=== PATIENT | male | born 1960 | race Caucasian/White ===

== ENCOUNTER → 2018-10-03 | Outpatient (CLI) | payer BC ==
--- NOTE | 2018-10-03 11:02 | XR ---
EXAMINATION TYPE: XR chest 2V DATE OF EXAM: 10/03/2018 COMPARISON: 06/10/2015 HISTORY: Shortness of breath TECHNIQUE: Frontal and lateral views of the chest are obtained. FINDINGS: Scattered senescent parenchymal changes noted. Hyperinflation compatible with COPD. No evidence for infiltrate. No evidence for atelectasis. Heart size is stable. Mediastinal structures are stable and grossly unremarkable. No evidence for hilar prominence. Degenerative changes dorsal spine. IMPRESSION: 1. No evidence for acute pulmonary disease.
== END | disposition home or self-care (01) ==
LOC: RADXRMAIN 10:27
PROVIDERS: ATTEND Internal Medicine Geriatric Medicine
DX: J45.909 Unspecified asthma, uncomplicated (principal)
CPT/HCPCS: 71046

== ENCOUNTER 2019-04-21 08:19 | Day surgery (SDC) | payer BC ==
[2019-04-16 10:17] VITALS: BMI 30.2
[~2019-04-21 08:19] MED LIST: LACTATED RINGERS 1,000 ML IV SCH
[2019-04-21 08:41] VITALS: TEMP 97.8
[2019-04-21] MEDS ORDERED: LIDOCAINE 1% 20 ML VIAL (10MG/ML) FOR IV START INTRADERMA ONE (08:42)
[2019-04-21] MEDS ORDERED: PROPOFOL 10 MG/ML 20 ML VIAL IV ONE (08:53)
--- NOTE | 2019-04-21 08:59 | P.GSHP ---
History of Present Illness H&P Date: 04/21/19 Chief Complaint: Deficiency anemia, screening Patient here today for upper and lower endoscopy. Patient has been complaining of fatigue and headaches. He has been found recently to have a low iron. Associated with anemia as well reportedly. No abdominal pain. No reflux or dysphagia. Last colonoscopy normal per patient. No family history of colon cancer. Past Medical History Past Medical History: GERD/Reflux, Hypertension Additional Past Medical History / Comment(s): headaches, borderline anemic, "low iron", "low WBC's", past acid refux, History of Any Multi-Drug Resistant Organisms: None Reported Past Surgical History: Hernia Repair, Orthopedic Surgery Additional Past Surgical History / Comment(s): beau knee arthroscopy, beau knee surgery as teen, Past Anesthesia/Blood Transfusion Reactions: No Reported Reaction Smoking Status: Current some day smoker - Past Family History Father Family Medical History: Cancer Medications and Allergies Home Medications Medication Instructions Recorded Confirmed Type ALPRAZolam [Xanax] 0.5 mg PO PC-SUPPER PRN 04/16/19 04/21/19 History Aspirin(Dose Unknown) 1 tab PO DIRECTED PRN 04/16/19 04/21/19 History Gemfibrozil [Lopid] 600 mg PO PC-SUPPER 04/16/19 04/21/19 History Lisinopril 30 mg PO PC-SUPPER 04/16/19 04/21/19 History Allergies Allergy/AdvReac Type Severity Reaction Status Date / Time No Known Allergies Allergy Verified 04/21/19 08:37 Surgical - Exam Vital Signs Temp Pulse Resp BP Pulse Ox 97.8 F 75 16 152/92 96 04/21/19 08:40 04/21/19 08:40 04/21/19 08:40 04/21/19 08:40 04/21/19 08:40 Physical exam: General: Well-developed, well-nourished HEENT: Normocephalic, sclerae nonicteric Abdomen: Nontender, nondistended Extremities: No edema Neuro: Alert and oriented Assessment and Plan (1) Iron deficiency anemia Narrative/Plan: Will proceed with upper and lower endoscopy at this time. Current Visit: Yes Status: Acute Code(s): D50.9 - IRON DEFICIENCY ANEMIA, UNSPECIFIED SNOMED Code(s): 02607817
[2019-04-21 09:39] VITALS: RESP 18
--- NOTE | 2019-04-21 09:39 | P.PCN ---
Date of Procedure: 04/21/19 Procedure(s) Performed: PREOPERATIVE DIAGNOSIS: Iron deficiency anemia, screening POSTOPERATIVE DIAGNOSIS: Gastric nodule, gastritis, diverticulosis, transverse colon polyp 2, rectal polyp PROCEDURE: 1. EGD with biopsy 2. Colonoscopy with snare polypectomies ANESTHESIA: MAC SURGEON: Elgin Rico M.D. SPECIMENS: Antrum, gastric nodule, transverse colon polyps, rectal polyp ENDOSCOPIC PROCEDURE: The patient was on the endoscopy table in the left decubitus position. The Olympus gastroscope was inserted into the oropharynx and passed under direct visualization to the region of the third portion of the duodenum. From that point the scope was slowly withdrawn inspecting all surfaces carefully. There were no neoplastic inflammatory or polypoid lesions throughout the duodenum. The pylorus was widely patent. The stomach was carefully inspected. There was noted to be a small slightly inflamed nodule in the prepyloric region. Mild gastritis was present. Biopsies took place. A biopsy of the antrum took place to rule out H. pylori. Retroflexion revealed a normal hiatus. The esophagus was then carefully examined. There were no neoplastic inflammatory or polypoid lesions throughout the visualized esophagus. The patient was kept on the endoscopy table in the left decubitus position. The Olympus colonoscope was inserted into the anus and passed under direct visualization to the base of the cecum. The appendiceal orifice was visualized. From that point the scope was slowly withdrawn inspecting all surfaces carefully. There were no neoplastic inflammatory or polypoid lesions throughout the cecum and ascending colon. In the transverse colon 2 small polyps removed using the snare with cautery technique. The remainder of the transverse descending sigmoid colon appeared normal. In the rectum a small polyp was also seen and removed in a similar fashion. There was mild sigmoid diverticulosis with some luminal narrowing and edema consistent with likely prior episodes of diverticulitis. Digital rectal examination was normal. The patient was taken to the recovery room in stable condition per anesthesia guidelines. RECOMMENDATIONS: Await biopsy results. Continue anemia workup.
[2019-04-21 10:22] VITALS: BP 121/43; PULSE 74
--- NOTE | 2019-04-23 11:11 | CDI ---
Outpatient Documentation Clarification Form Date: 04/23/19 [employer] Reseller Name: Ashley Silva Phone: If any questions, call Caitlin Villareal [employer] Sales Consultant at [phone] Patient Name: Hank Moon Admit Date: 04/21/19 Discharge Date: 04/21/19 ATTENTION: The [facility] Coding Staff appreciate your assistance in clarifying documentation. Please respond to the clarification below the line at the bottom and electronically sign. The [facility] Coding staff will review the response and follow-up if needed. Please note: Queries are made part of the Legal Health Record. If you have any questions, please contact the [employer] Sales Consultant. Dear Dr. Rico, Please provide clarification as to the pre-operative diagnoses on the procedures performed. They are listed as iron deficient anemia and screening. In order to code according to the official guidelines, a screening is testing for disease or disease precursors in seemingly well individuals in the absence of signs or symptoms. The iron deficient anemia would be considered a sign or symptom. Since iron deficient anemia can prompt both an EGD and colonoscopy to be performed, please clarify if the pre-operative diagnosis of iron deficient anemia is the reason for one or both of the procedures. Thank you for your kind consideration. If iron deficiency anemia is adequate preoperative diagnosis for colonoscopy which it wasn't in the past then please use that. _ MTDD
== END 2019-04-21 10:23 | disposition home or self-care (01) ==
LOC: ORWHC2ENDO 08:19
PROVIDERS: ATTEND Surgery
DX: D50.9 Iron deficiency anemia, unspecified (principal); K29.50 Unspecified chronic gastritis without bleeding; D12.3 Benign neoplasm of transverse colon; K62.1 Rectal polyp; K57.30 Diverticulosis of large intestine without perforation or abscess without bleeding; K21.9 Gastro-esophageal reflux disease without esophagitis; I10 Essential (primary) hypertension; F17.290 Nicotine dependence, other tobacco product, uncomplicated; R51 Headache; Z79.899 Other long term (current) drug therapy
CPT/HCPCS: 88305; 45385; 43239; J2704

== ENCOUNTER → 2020-12-18 | Outpatient (CLI) | payer BC ==
--- NOTE | 2020-12-18 15:14 | XR ---
EXAMINATION TYPE: XR KUB DATE OF EXAM: 12/18/2020 12:43 PM CLINICAL HISTORY: Bilateral flank pain, hematuria TECHNIQUE: Supine images of the abdomen and pelvis were obtained COMPARISON: 10/19/2009. FINDINGS: Nonspecific bowel gas pattern. There is no visceromegaly or pneumoperitoneum. There is a 4 mm calcified lesion over the lower pole of the right kidney. The osseous structures are intact. IMPRESSION: 4 mm calcification over the right renal lower pole shadow which may represent nephrolithiasis.
== END | disposition home or self-care (01) ==
LOC: RADXRMAIN 10:48
PROVIDERS: ATTEND Nurse Practitioner Gerontology
DX: N28.89 Other specified disorders of kidney and ureter (principal)
CPT/HCPCS: 74018

== ENCOUNTER → 2021-01-18 | Outpatient (CLI) | payer BC ==
--- NOTE | 2021-01-18 16:43 | US ---
EXAMINATION TYPE: US kidneys/renal and bladder DATE OF EXAM: 01/18/2021 COMPARISON: NONE CLINICAL HISTORY: N20.0 Renal Calculus. EXAM MEASUREMENTS: Right Kidney: 12.7 x 5.1 x 5.3cm Left Kidney: 12.6 x 5.7 x 5.4cm Right Kidney: echogenic foci measuring 0.5 x 0.4 x 0.2cm, measures large Left Kidney: measures large Bladder: not fully distended ureteral jets are not visualized. Spleen: measures large Right lower pole renal calculus measuring 5 mm is nonobstructive. No hydronephrosis. No left renal ca lculi. The spleen is enlarged suggestive of splenomegaly at 15.4 cm in length. IMPRESSION: 1. Splenomegaly. The spleen measures up to 15 .4 cm in length. Clinical and laboratory correlation is recommended. 2. 5 mm right renal lower pole calculus. This is nonobstructive. No hydronephrosis. 3. No hydronephrosis or shadowing renal calculi are seen of the left kidney. 4. The kidneys are mildly enlarged bilaterally. Clinical correlation is recommended. A common cause i s diabetic nephropathy. Differential diagnosis includes other nephropathies. 5. The urinary bladder is not fully distended. Ureteral jets are not visualized.
== END | disposition home or self-care (01) ==
LOC: RADUSWWP 10:15
PROVIDERS: ATTEND Internal Medicine Geriatric Medicine
DX: N20.0 Calculus of kidney (principal); R16.1 Splenomegaly, not elsewhere classified; E11.21 Type 2 diabetes mellitus with diabetic nephropathy
CPT/HCPCS: 76770

== ENCOUNTER → 2022-03-12 | Outpatient (CLI) | payer BC ==
--- NOTE | 2022-03-12 12:49 | XR ---
EXAMINATION TYPE: XR chest 2V DATE OF EXAM: 03/12/2022 COMPARISON: Chest x-ray 10/03/2018 HISTORY: Abnormal weight loss TECHNIQUE: Frontal and lateral views of the chest are obtained. FINDINGS: There is no focal air space opacity, pleural effusion, or pneumothorax seen. The cardiac silhouette size is within normal limits. The osseous structures are intact, there is thoracic spond ylosis, stable appearance, mild anterior wedge compression deformity in the midthoracic spine is unch anged. There are coronary artery calcifications. Old left midclavicular fracture with healing is unch anged IMPRESSION: No acute cardiopulmonary process.
== END | disposition home or self-care (01) ==
LOC: RADXRMAIN 12:20
PROVIDERS: ATTEND Internal Medicine Geriatric Medicine
DX: R63.4 Abnormal weight loss (principal)
CPT/HCPCS: 71046

== ENCOUNTER → 2022-06-21 | Outpatient (CLI) | payer BC ==
--- NOTE | 2022-06-21 09:04 | XR ---
EXAM TYPE: LUMBAR SPINE X RAY SERIES COMPARISON: NONE HISTORY: Pain TECHNIQUE: 3 views are submitted. FINDINGS: Alignment is anatomic. The pedicles are intact. The transverse processes are intact. There is renetta re degenerative disc disease L5-S1. There is facet arthropathy L4-5 and L5-S1. Chronic appearing defo rmity of the inferior endplate of L2. There is a 4.5 mm calcification right upper quadrant likely wit hin IMPRESSION: 1. Severe degenerative disc disease L5-S1 with facet arthropathy. Suspect bilateral foraminal encroac hment. 2. Correlate for right renal calculus.
== END | disposition home or self-care (01) ==
LOC: RADXRMAIN 08:44
PROVIDERS: ATTEND Internal Medicine Geriatric Medicine
DX: M51.37 Other intervertebral disc degeneration, lumbosacral region (principal); M47.817 Spondylosis without myelopathy or radiculopathy, lumbosacral region
CPT/HCPCS: 72100

== ENCOUNTER → 2022-06-29 | Outpatient (CLI) | payer BC ==
--- NOTE | 2022-06-30 10:46 | MR ---
EXAMINATION TYPE: MR lumbar spine wo con DATE OF EXAM: 06/29/2022 10:11 AM COMPARISON: NONE HISTORY: M48.00 SPINAL STENOSIS, SITE UNSPECIFIED Multiplanar, MultiSpin echo imaging of the lumbar spine was performed. L1-L2: Normal disc appearance without desiccation. No herniation, protrusion or disc bulging. No ca nal stenosis is present. Foramina are patent bilaterally. L2-L3: Normal disc appearance without desiccation. No herniation, protrusion or disc bulging. No ca nal stenosis is present. Foramina are patent bilaterally. L3-L4: Normal disc appearance without desiccation. No herniation, protrusion or disc bulging. No ca nal stenosis is present. Foramina are patent bilaterally. L4-L5: Moderate decreased signal and loss of height compatible degenerative disc disease. Posterior d isc bulge with hypertrophy of the ligamentum flavum and facet joint arthropathy resulting in moderate to severe central stenosis. Bilateral neural foraminal encroachment seen. L5-S1: Moderate disc desiccation. Posterior disc bulge with annular tear greatest posteriorly central ly and to the left. There is left lateral recess stenosis and left foraminal encroachment. Facet join t arthropathy. No evidence for central stenosis. Ventral spondylosis. Lumbar segments are intact. No paraspinal masses are identified. Conus medullaris has a normal appe arance. IMPRESSION: 1. Moderate to severe central stenosis at L4-5. 2. At L4-5 there is a disc bulge with annular tear and left lateral recess stenosis.
== END | disposition home or self-care (01) ==
LOC: RADMRIMAIN 09:24
PROVIDERS: ATTEND Internal Medicine Geriatric Medicine
DX: M48.061 Spinal stenosis, lumbar region without neurogenic claudication (principal); M51.36 Other intervertebral disc degeneration, lumbar region
CPT/HCPCS: 72148

== ENCOUNTER 2022-11-12 19:28 | Inpatient (IN) | payer BC, MEDICAID ==
[2022-11-12] MEDS ORDERED: METOCLOPRAMIDE 5 MG/ML 2 ML VIAL IVP STA (19:56)
[2022-11-12] MEDS ORDERED: SODIUM CHLORIDE 0.9% 2,000 ML IV STA (19:56)
[2022-11-12] MEDS ORDERED: FAMOTIDINE 20 MG/2 ML VIAL IV STA (19:57)
--- NOTE | 2022-11-12 20:04 | ED ---
Nausea/Vomiting/Diarrhea HPI - General Chief complaint: Nausea/Vomiting/Diarrhea Stated complaint: Vomiting Time Seen by Provider: 11/12/22 19:52 Source: patient, family, RN notes reviewed Mode of arrival: ambulatory Limitations: no limitations - History of Present Illness Initial comments: This is a 62-year-old male who presents to the emergency department for nausea and vomiting. His states that this started at 7:30 AM. He initially tried taking Zofran, however he drank water 5 minutes later, and then proceeded to throw up. Since then, the Zofran has not been effective. When this first started, he was having centralized abdominal pain. However, that has since resolved and he is now only experiencing the nausea and vomiting. Denies any changes in bowel or urinary habits. Patient is notably shaking in the examination room. His states that this started yesterday. She is unsure if this is related to dehydration or another issue altogether. He was at the dentist yesterday, but otherwise denies any sick contacts or eating any new or different foods. Patient does say that he feels "off" and he cannot explain it. He has never felt like this before. With regards to the back pain mentioned in the triage notes, patient states that he has chronic lower back pain and is scheduled to have a lumbar fusion next month. Denies any chest pain or shortness of breath. Denies any fevers, chills, sore throat, cough, dyspnea, chest pain, palpitations, diarrhea, or headaches. MD complaint: nausea, vomiting Associated Abdominal Pain: No - Related Data Home Medications Medication Instructions Recorded Confirmed ALPRAZolam [Xanax] 0.5 mg PO PC-SUPPER PRN 04/16/19 04/21/19 Aspirin(Dose Unknown) 1 tab PO DIRECTED PRN 04/16/19 04/21/19 gemfibroziL [Lopid] 600 mg PO PC-SUPPER 04/16/19 04/21/19 lisinopriL 30 mg PO PC-SUPPER 04/16/19 04/21/19 Previous Rx's Medication Instructions Recorded Metoclopramide [Reglan] 10 mg PO Q6H PRN #20 tab 11/12/22 Allergies Allergy/AdvReac Type Severity Reaction Status Date / Time No Known Allergies Allergy Verified 11/12/22 19:40 Review of Systems ROS Statement: Those systems with pertinent positive or pertinent negative responses have been documented in the HPI. ROS Other: All systems not noted in ROS Statement are negative. Past Medical History Past Medical History: GERD/Reflux, Hypertension Additional Past Medical History / Comment(s): headaches, borderline anemic, "low iron", "low WBC's", past acid refux, History of Any Multi-Drug Resistant Organisms: None Reported Past Surgical History: Hernia Repair, Orthopedic Surgery Additional Past Surgical History / Comment(s): beau knee arthroscopy, beau knee surgery as teen, Past Anesthesia/Blood Transfusion Reactions: No Reported Reaction Past Psychological History: Anxiety Smoking Status: Current every day smoker Past Alcohol Use History: None Reported Past Drug Use History: None Reported - Past Family History Father Family Medical History: Cancer General Exam Limitations: no limitations General appearance: alert, in no apparent distress, other (Patient does have diffuse whole-body tremors) Head exam: Present: atraumatic, normocephalic, normal inspection Respiratory exam: Present: normal lung sounds bilaterally. Absent: respiratory distress, wheezes, rales, rhonchi, stridor Cardiovascular Exam: Present: regular rate, normal rhythm, normal heart sounds. Absent: systolic murmur, diastolic murmur, rubs, gallop, clicks GI/Abdominal exam: Present: soft, normal bowel sounds. Absent: distended, tenderness, guarding, rebound, rigid Neurological exam: Present: alert, oriented X3, CN II-XII intact Psychiatric exam: Present: normal affect, normal mood Skin exam: Present: warm, dry, intact, normal color. Absent: rash Course Vital Signs 11/12/22 11/12/22 11/12/22 19:37 19:51 20:00 Temperature 98.9 F Pulse Rate 142 H 124 H Respiratory 22 18 20 Rate Blood Pressure 159/105 170/114 170/114 O2 Sat by Pulse 98 99 98 Oximetry 11/12/22 11/12/22 11/12/22 20:15 20:30 20:45 Temperature Pulse Rate 110 H 115 H Respiratory 18 16 Rate Blood Pressure 172/108 186/118 166/114 O2 Sat by Pulse 98 98 Oximetry 11/12/22 11/12/22 11/12/22 21:00 21:15 21:30 Temperature Pulse Rate 121 H 112 H 121 H Respiratory 17 17 19 Rate Blood Pressure 154/117 167/107 164/106 O2 Sat by Pulse 99 98 98 Oximetry 11/12/22 11/12/22 21:45 22:15 Temperature Pulse Rate 121 H 112 H Respiratory 16 Rate Blood Pressure 165/110 157/102 O2 Sat by Pulse 98 96 Oximetry Medical Decision Making - Medical Decision Making This is a 62-year-old male who presents to the emergency department for nausea and vomiting. Was pt. sent in by a medical professional or institution? @ -No Did you speak to anyone other than the patient for history? @ -His and daughter Did you review nursing and triage notes? @ -Yes, and I agree, it is accurate with regards to the patient's symptoms. Were old charts reviewed? @ -No Differential Diagnosis? @ -Differential Nausea and Vomiting: Gastroenteritis, cholecystitis, appendicitis, pancreatitis, migraine, benign positional vertigo, food borne illness, pyelonephritis, irritable bowel syndrome, influenza, Covid, GERD, incarcerated hernia, intestinal obstruction, this is not meant to be an all-inclusive list. EKG interpreted by me (3pts min.)? @ -Sinus tachycardia. Ventricular rate 127 bpm, DE interval 177 ms, QRS duration 99 ms, QTC 388 ms. X-rays interpreted by me (1pt min.)? @ -KUB x-ray obtained. My interpretation of the KUB x-ray reveals no free air or dilation of the bowel loops. What testing was considered but not performed? (CT, X-rays, U/S, labs)? Why? @ -None What meds were considered but not given? Why? @ -None Did you discuss the management of the patient with other professionals? @ -Yes, Slime Pate with [facility] who accepts the patient for admission. Did you reconcile home meds? @ -No Was smoking cessation discussed for >3mins.? @ -No Was critical care preformed (if so, how long)? @ -No Were there social determinants of health that impacted care today? How? (Homelessness, low income, unemployed, alcoholism, drug addiction, tr ansportation, low edu. Level, literacy, decrease access to med. care, senior care, rehab)? @ -No Was there de-escalation of care discussed even if they declined? (Discuss DNR or withdrawal of care, Hospice)? @ -No What co-morbidities impacted this encounter? (DM, HTN, Smoking, COPD, CAD, Cancer, CVA, Hep., AIDS, mental health diagnosis, sleep apnea, morbid obesity)? @ -GERD, HTN Was patient admitted / discharged? @ -Admitted. Lab work obtained revealing minor leukocytosis, likely reactive to the nausea and vomiting. Lab work also consistent with dehydration. Patient given 2 L bolus of IV fluids, Reglan, and Pepcid. Troponin elevated at .060. Patient denies any chest pain or shortness of breath. He does complain of lower back pain, which he states is chronic. The nausea and vomiting resolve with the Reglan and he was able to keep down water without difficulty. However, he did continue to feel generally unwell and "off". Shaking improved following medication administration, but was still present. KUB x-ray obtained revealing no acute findings. Urinalysis does demonstrate a large amount of blood. Patient states that he has a kidney stone that is too large to pass, and he always has blood in his urine. He has followed up with urology regarding this issue, and there are no plans for intervention at this time because he has been asymptomatic. He continued to be tachycardic and hypertensive in the emergency department. 20 mg of labetalol was administered. Patient admitted to medicine for the elevated troponin with cardiology consult. Will also trend troponins. Undiagnosed new problem with uncertain prognosis? @ -None Drug Therapy requiring intensive monitoring for toxicity (Heparin, Nitro, Insulin, Cardizem)? @ -None Were any procedures done? @ -None Diagnosis/symptom? @ -N/V, elevated troponin Acute, or Chronic, or Acute on Chronic? @ -Acute Uncomplicated (without systemic symptoms) or Complicated (systemic symptoms)? @ -Complicated Side effects of treatment? @ -None Exacerbation, Progression, or Severe Exacerbation] @ -Not applicable Poses a threat to life or bodily function? @ -Yes This case was discussed in detail with the attending ED physician, Dr. Trevino. Presentation, findings, and treatment plan discussed in detail as well. - Lab Data Result diagrams: 11/12/22 19:58 11/12/22 19:58 Lab Results 11/12/22 11/12/22 11/12/22 Range/Units 19:58 19:58 19:58 WBC 13.2 H (3.8-10.6) k/uL RBC 4.61 (4.30-5.90) m/uL Hgb 15.3 (13.0-17.5) gm/dL Hct 43.3 (39.0-53.0) % MCV 94.1 (80.0-100.0) fL MCH 33.2 (25.0-35.0) pg MCHC 35.3 (31.0-37.0) g/dL RDW 11.9 (11.5-15.5) % Plt Count 248 (150-450) k/uL MPV 8.2 Neutrophils % 90 % Lymphocytes % 6 % Monocytes % 4 % Eosinophils % 0 % Basophils % 0 % Neutrophils # 11.8 H (1.3-7.7) k/uL Lymphocytes # 0.8 L (1.0-4.8) k/uL Monocytes # 0.5 (0-1.0) k/uL Eosinophils # 0.0 (0-0.7) k/uL Basophils # 0.0 (0-0.2) k/uL Sodium 130 L (137-145) mmol/L Potassium 5.4 H (3.5-5.1) mmol/L Chloride 101 (98-107) mmol/L Carbon Dioxide 14 L (22-30) mmol/L Anion Gap 15 mmol/L BUN 43 H (9-20) mg/dL Creatinine 1.09 (0.66-1.25) mg/dL Est GFR (CKD-EPI)AfAm 83 (>60 ml/min/1.73 sqM) Est GFR (CKD-EPI)NonAf 71 (>60 ml/min/1.73 sqM) Glucose 157 H (74-99) mg/dL Calcium 9.8 (8.4-10.2) mg/dL Magnesium 2.3 (1.6-2.3) mg/dL Total Bilirubin 0.9 (0.2-1.3) mg/dL AST 36 (17-59) U/L ALT 42 (4-49) U/L Alkaline Phosphatase 110 (38-126) U/L Troponin I (0.000-0.034) ng/mL Total Protein 7.8 (6.3-8.2) g/dL Albumin 4.6 (3.5-5.0) g/dL Amylase 51 (30-110) U/L Lipase 140 (23-300) U/L TSH 1.710 (0.465-4.680) mIU/L Urine Color Urine Appearance (Clear) Urine pH (5.0-8.0) Ur Specific [place] (1.001-1.035) Urine Protein (Negative) Urine Glucose (UA) (Negative) Urine Ketones (Negative) Urine Blood (Negative) Urine Nitrite (Negative) Urine Bilirubin (Negative) Urine Urobilinogen (<2.0) mg/dL Ur Leukocyte Esterase (Negative) Urine RBC (0-5) /hpf Urine WBC (0-5) /hpf Ur Squamous Epith Cells (0-4) /hpf Hyaline Casts (0-2) /lpf Urine Mucus (None) /hpf Influenza Type A (PCR) Not Detected (Not Detectd) Influenza Type B (PCR) Not Detected (Not Detectd) RSV (PCR) Not Detected (Not Detectd) SARS-CoV-2 (PCR) Not Detected (Not Detectd) 11/12/22 11/12/22 Range/Units 19:58 21:00 WBC (3.8-10.6) k/uL RBC (4.30-5.90) m/uL Hgb (13.0-17.5) gm/dL Hct (39.0-53.0) % MCV (80.0-100.0) fL MCH (25.0-35.0) pg MCHC (31.0-37.0) g/dL RDW (11.5-15.5) % Plt Count (150-450) k/uL MPV Neutrophils % % Lymphocytes % % Monocytes % % Eosinophils % % Basophils % % Neutrophils # (1.3-7.7) k/uL Lymphocytes # (1.0-4.8) k/uL Monocytes # (0-1.0) k/uL Eosinophils # (0-0.7) k/uL Basophils # (0-0.2) k/uL Sodium (137-145) mmol/L Potassium (3.5-5.1) mmol/L Chloride (98-107) mmol/L Carbon Dioxide (22-30) mmol/L Anion Gap mmol/L BUN (9-20) mg/dL Creatinine (0.66-1.25) mg/dL Est GFR (CKD-EPI)AfAm (>60 ml/min/1.73 sqM) Est GFR (CKD-EPI)NonAf (>60 ml/min/1.73 sqM) Glucose (74-99) mg/dL Calcium (8.4-10.2) mg/dL Magnesium (1.6-2.3) mg/dL Total Bilirubin (0.2-1.3) mg/dL AST (17-59) U/L ALT (4-49) U/L Alkaline Phosphatase (38-126) U/L Troponin I 0.060 H* (0.000-0.034) ng/mL Total Protein (6.3-8.2) g/dL Albumin (3.5-5.0) g/dL Amylase (30-110) U/L Lipase (23-300) U/L TSH (0.465-4.680) mIU/L Urine Color Yellow Urine Appearance Cloudy (Clear) Urine pH 5.5 (5.0-8.0) Ur Specific [place] 1.019 (1.001-1.035) Urine Protein 1+ H (Negative) Urine Glucose (UA) 1+ H (Negative) Urine Ketones 1+ H (Negative) Urine Blood Large H (Negative) Urine Nitrite Negative (Negative) Urine Bilirubin Negative (Negative) Urine Urobilinogen <2.0 (<2.0) mg/dL Ur Leukocyte Esterase Small H (Negative) Urine RBC 97 H (0-5) /hpf Urine WBC 6 H (0-5) /hpf Ur Squamous Epith Cells 1 (0-4) /hpf Hyaline Casts 151 H (0-2) /lpf Urine Mucus Few H (None) /hpf Influenza Type A (PCR) (Not Detectd) Influenza Type B (PCR) (Not Detectd) RSV (PCR) (Not Detectd) SARS-CoV-2 (PCR) (Not Detectd) - Radiology Data Radiology results: report reviewed, image reviewed Disposition Clinical Impression: Nausea and vomiting, Elevated troponin Disposition: ADMITTED IP TO THIS HOSP
[2022-11-12 20:21] LABS: Basophils % (A) 0 %; Eosinophils % (A) 0 %; HCT 43.3 % (39.0-53.0); HGB 15.3 gm/dL (13.0-17.5); Lymphocytes # (A) 0.8 k/uL (1.0-4.8); Lymphocytes % (A) 6 %; MCH 33.2 pg (25.0-35.0); MCHC 35.3 g/dL (31.0-37.0); MCV 94.1 fL (80.0-100.0); Mean Platelet Volume 8.2; Monocytes # (A) 0.5 k/uL (0-1.0); Monocytes % (A) 4 %; Neutrophils # (A) 11.8 k/uL (1.3-7.7); Neutrophils % (A) 90 %; Platelet Count 248 k/uL (150-450); RBC 4.61 m/uL (4.30-5.90); RDW 11.9 % (11.5-15.5); WBC 13.2 k/uL (3.8-10.6)
--- NOTE | 2022-11-12 20:30 | XR ---
EXAMINATION TYPE: XR KUB DATE OF EXAM: 11/12/2022 COMPARISON: 12/18/2020 HISTORY: Nausea and vomiting TECHNIQUE: 2 views FINDINGS: There is no sign of intestinal obstruction or pneumoperitoneum. Fecal pattern is normal. No sign of a mass. No pathologic calcification over the kidneys. Lung bases are clear. IMPRESSION: Nonacute abdomen. No adverse change.
[2022-11-12 20:48] LABS: ALT 42 U/L (4-49); AST 36 U/L (17-59); African American GFR (CKD) 83 (>60 ml/min/1.73 sqM); Albumin 4.6 g/dL (3.5-5.0); Alkaline Phosphatase 110 U/L (38-126); Amylase 51 U/L (30-110); Anion Gap 15 mmol/L; Blood Urea Nitrogen 43 mg/dL (9-20); Calcium 9.8 mg/dL (8.4-10.2); Carbon Dioxide 14 mmol/L (22-30); Chloride 101 mmol/L (98-107); Glucose 157 mg/dL (74-99); Lipase 140 U/L (23-300); Magnesium 2.3 mg/dL (1.6-2.3); Non-African American GFR(CKD) 71 (>60 ml/min/1.73 sqM); Potassium 5.4 mmol/L (3.5-5.1); Sodium 130 mmol/L (137-145); Total Bilirubin 0.9 mg/dL (0.2-1.3); Total Protein 7.8 g/dL (6.3-8.2)
[2022-11-12 21:32] LABS: Appearance,Urine Cloudy (Clear); Bilirubin,Urine Negative (Negative); Blood,Urine Large (Negative); Color,Urine Yellow; Glucose,Urine (UA) 1+ (Negative); Hyaline Casts,Urine 151 /lpf (0-2); Ketones,Urine 1+ (Negative); Leukocyte Esterase,Urine Small (Negative); Mucus,Urine Few /hpf; Nitrite,Urine Negative (Negative); PH, Urine 5.5 (5.0-8.0); Protein,Urine 1+ (Negative); RBC,Urine 97 /hpf (0-5); Specific Gravity,Urine 1.019 (1.001-1.035); Squamous Epithelial Cell,Urine 1 /hpf (0-4); Urobilinogen,Urine <2.0 mg/dL (<2.0); WBC,Urine 6 /hpf (0-5)
[2022-11-12] MEDS ORDERED: MORPHINE SULFATE 2 MG/ML SYRINGE IVP STA (21:49)
[2022-11-12] MEDS ORDERED: IBUPROFEN 400 MG TAB PO PRN (21:51)
[2022-11-12] MEDS ORDERED: HYDROcodone/APAP 5-325MG 1 EACH TAB PO PRN (21:51)
[2022-11-12] MEDS ORDERED: NALOXONE 0.4 MG/ML 1 ML VIAL IV PRN (21:51)
[2022-11-12] MEDS ORDERED: ACETAMINOPHEN TAB 325 MG TAB PO PRN (21:51)
[2022-11-12] MEDS ORDERED: METOCLOPRAMIDE 5 MG/ML 2 ML VIAL IVP PRN (22:00)
[2022-11-12] MEDS ORDERED: KETOROLAC 15 MG/ML 1 ML VIAL IVP STA (22:08)
[2022-11-12] MEDS ORDERED: LABETALOL 5 MG/ML VIAL MDV IVP STA (22:08)
[2022-11-13] MEDS: SODIUM CHLORIDE 0.9% 1,000 ML IV SCH ×3 (00:15→18:12)
[2022-11-13 03:53] LABS: Basophils % (A) 0 %; Eosinophils % (A) 0 %; HGB 12.9 gm/dL (13.0-17.5); Lymphocytes % (A) 11 %; MCH 33.3 pg (25.0-35.0); MCV 95.1 fL (80.0-100.0); Mean Platelet Volume 8.4; Monocytes # (A) 0.5 k/uL (0-1.0); Monocytes % (A) 6 %; Neutrophils % (A) 81 %; Platelet Count 145 k/uL (150-450); RBC 3.89 m/uL (4.30-5.90); RDW 11.9 % (11.5-15.5); WBC 8.7 k/uL (3.8-10.6)
[2022-11-13 04:12] LABS: Albumin 3.5 g/dL (3.5-5.0); Calcium 8.5 mg/dL (8.4-10.2); Total Bilirubin 0.6 mg/dL (0.2-1.3); Total Protein 6.3 g/dL (6.3-8.2)
[2022-11-13] MEDS ORDERED: HEPARIN SODIUM 1,000 UN/ML (10ML VL) IV ONE ×2 (08:07→13:52)
[2022-11-13] MEDS ORDERED: HEPARIN SODIUM 1,000 UN/ML (10ML VL) IV PRN (08:07)
[2022-11-13] MEDS ORDERED: HEPARIN SOD,PORK IN 0.45% NACL 25,000 UNIT in 0.45% NACL 1 250ML.BAG IV SCH (08:15)
[2022-11-13] MEDS: MORPHINE SULFATE 4 MG/ML SYRINGE IV PRN ×3 (08:23→18:53)
[2022-11-13] MEDS ORDERED: ATORVASTATIN 20 MG TAB PO SCH (09:00)
[2022-11-13] MEDS ORDERED: ASPIRIN 81 MG PO SCH (09:00)
[2022-11-13] MEDS ORDERED: ALPRAZolam 0.25 MG TAB PO PRN (09:07)
[2022-11-13] MEDS ORDERED: ATORVASTATIN 80 MG TAB PO STA (09:07)
[2022-11-13] MEDS ORDERED: NITROGLYCERIN SL TABS 0.4 MG TAB SUBLINGUAL PRN ×2 (09:07→14:26)
[2022-11-13] MEDS ORDERED: ASPIRIN 325 MG TAB PO STA (09:07)
[2022-11-13] MEDS ORDERED: ALPRAZolam 0.5 MG TAB PO PRN ×2 (09:07→11:36)
--- NOTE | 2022-11-13 09:18 | P.CRDCN ---
History of Present Illness Consult date: 11/13/22 Reason for Consult (text): Elevated troponins History of present illness: History of present illness: This is a 62 year old male with past medical history of chronic back pain with multiple pain procedures with plan for surgical intervention with Dr. Weathers, hyperlipidemia, depression and anxiety. 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 We have been asked to see him regarding elevated troponins. Patient states that he has had ongoing problems with acne and on suspects all injections, currently on Tylenol 3 that does not seem to be helping his pain. He has stopped eating and drinking normally and has lost some weight. Yesterday morning first thing when he got up he started having vomiting. No abdominal pain no diarrhea. He did have a normal bowel movement this morning. He has denied having any chest pain or pressure, no upper back discomfort. No shortness of breath. His walking is limited due to back pain but does not describe chest pain when he's doing activity. He states that the morphine helped his back pain last night. Vomiting has now resolved. He presented with a blood pressure 170/114 and heart rate of 142. In the emergency center, he received labetalol IV 2 L of IV fluids, morphine and Toradol. EKG sinus tachycardia at 127 bpm KUB nonacute abdomen. No adverse change. WBC 13.2, hemoglobin 15.3, platelet count 248. Sodium 130, potassium 5.4, BUN 43 creatinine 1.09. Blood sugar is 157. Troponin 0.06, 0.256, 0.3-9. TSH 1.71. Influenza A, influenza B, are SVNs Covid 19 not detected. Urinalysis is bloody. Home cardiac medications: Lopid 600 mg twice daily, lisinopril 30 mg daily Review Of Systems: At the time of my evaluation: Constitutional: No fever, no chills. No weakness, fatigue or lethargy. EENT: No headache. No dizziness. Lungs: No shortness of breath, cough, no sputum production. No wheezing. Cardiovascular: No chest pain, no lower extremity edema. No palpitations. No paroxysmal nocturnal dyspnea. No orthopnea. No lightheadedness or dizziness. No syncopal episodes. Abdominal: No abdominal pain. No nausea, vomiting. No diarrhea. No constipation. Musculoskeletal: No myalgias. No muscle weakness, no frequent falls. Chronic back pain. No neck pain. Integumentary: No wounds. No rash. No unusual bruising. Neurologic: No aphasia. No facial droop. No change in mentation. No head injury. No headache. Physical examination: Gen: This is a 62-year-old male. He is resting in bed and appears to be comfortable and in no acute distress. VS: reviewed HEENT: Head is atraumatic, normocephalic. Pupils equal, round. Sclerae is anicteric. NECK: Supple. No JVD. . LUNGS: Clear to auscultation. No wheezes or rhonchi. No intercostal retractions. HEART: Regular rate and rhythm. No murmur. ABDOMEN: Soft No tenderness. EXTREMITIES: No pedal edema. No calf tenderness. NEUROLOGICAL: Patient is awake, alert and oriented x3. Assessment: Non-ST elevated myocardial infarction Vomiting, possible viral gastritis Chronic back pain Hyperlipidemia Plan: Patient will be started on heparin drip Start metoprolol 50 mg twice daily, atorvastatin 20 mg daily, baby aspirin 81 mg daily, lisinopril 10 mg at noon Obtain 2-D echocardiogram and Doppler study to assess cardiac structure and function Patient will be scheduled for cardiac catheterization today with Dr. Morin this afternoon. Further recommendations to follow based upon clinical course Thank you kindly for this consultation. Nurse practitioner note has been reviewed, I agree with documented findings and plan of care. Patient was seen and examined. Past Medical History Past Medical History: GERD/Reflux, Hypertension Additional Past Medical History / Comment(s): headaches, borderline anemic, "low iron", "low WBC's", past acid refux, History of Any Multi-Drug Resistant Organisms: None Reported Past Surgical History: Hernia Repair, Orthopedic Surgery Additional Past Surgical History / Comment(s): beau knee arthroscopy, beau knee surgery as teen, Past Anesthesia/Blood Transfusion Reactions: No Reported Reaction Past Psychological History: Anxiety Smoking Status: Current every day smoker Past Alcohol Use History: None Reported Past Drug Use History: None Reported - Past Family History Father Family Medical History: Cancer Medications and Allergies Home Medications Medication Instructions Recorded Confirmed Type ALPRAZolam [Xanax] 0.5 mg PO BID PRN 04/16/19 11/12/22 History gemfibroziL [Lopid] 600 mg PO BID 04/16/19 11/12/22 History lisinopriL 30 mg PO DAILY 04/16/19 11/12/22 History Acetaminophen-Codeine 300-30mg 1 tab PO Q8H PRN 11/12/22 11/12/22 History [Tylenol w/codeine #3] Baclofen [Lioresal] 10 mg PO TID 11/12/22 11/12/22 History Escitalopram [Lexapro] 20 mg PO DAILY 11/12/22 11/12/22 History Magnesium (Unknown Strength) 1 dose PO DAILY 11/12/22 11/12/22 History Metoclopramide [Reglan] 10 mg PO Q6H PRN #20 tab 11/12/22 Rx Ondansetron Odt [Zofran Odt] 4 mg PO TID PRN 11/12/22 11/12/22 History Allergies Allergy/AdvReac Type Severity Reaction Status Date / Time No Known Allergies Allergy Verified 11/12/22 22:52 Physical Exam Vitals: Vital Signs Temp Pulse Pulse Resp BP BP Pulse Ox 11/13/22 04:00 98.4 F 96 16 133/89 99 11/12/22 23:26 98.2 F 92 18 153/95 98 11/12/22 22:45 94 17 109/83 96 11/12/22 22:30 170/106 97 11/12/22 22:15 112 H 157/102 96 11/12/22 21:45 121 H 16 165/110 98 11/12/22 21:30 121 H 19 164/106 98 11/12/22 21:15 112 H 17 167/107 98 11/12/22 21:00 121 H 17 154/117 99 11/12/22 20:45 115 H 16 166/114 98 11/12/22 20:30 110 H 18 186/118 98 11/12/22 20:15 172/108 11/12/22 20:00 20 170/114 98 11/12/22 19:51 124 H 18 170/114 99 11/12/22 19:37 98.9 F 142 H 22 159/105 98 Intake and Output 11/12/22 11/13/22 11/13/22 22:59 06:59 14:59 Other: # Voids 1 Weight 81.193 kg 83.5 kg Results 11/13/22 03:29 11/13/22 03:29 Cardiac Enzymes 11/12/22 11/12/22 11/13/22 Range/Units 19:58 19:58 00:50 AST 36 (17-59) U/L Troponin I 0.060 H* 0.256 H* (0.000-0.034) ng/mL 11/13/22 11/13/22 Range/Units 03:29 03:29 AST 26 (17-59) U/L Troponin I 0.329 H* (0.000-0.034) ng/mL CBC 11/12/22 11/13/22 Range/Units 19:58 03:29 WBC 13.2 H 8.7 (3.8-10.6) k/uL RBC 4.61 3.89 L (4.30-5.90) m/uL Hgb 15.3 12.9 L (13.0-17.5) gm/dL Hct 43.3 37.0 L (39.0-53.0) % Plt Count 248 145 L (150-450) k/uL Comprehensive Metabolic Panel 11/12/22 11/13/22 Range/Units 19:58 03:29 Sodium 130 L 130 L (137-145) mmol/L Potassium 5.4 H 5.0 (3.5-5.1) mmol/L Chloride 101 103 (98-107) mmol/L Carbon Dioxide 14 L 21 L (22-30) mmol/L BUN 43 H 40 H (9-20) mg/dL Creatinine 1.09 1.06 (0.66-1.25) mg/dL Glucose 157 H 114 H (74-99) mg/dL Calcium 9.8 8.5 (8.4-10.2) mg/dL AST 36 26 (17-59) U/L ALT 42 32 (4-49) U/L Alkaline Phosphatase 110 83 (38-126) U/L Total Protein 7.8 6.3 (6.3-8.2) g/dL Albumin 4.6 3.5 (3.5-5.0) g/dL Current Medications Generic Name Dose Route Start Last Admin Trade Name Freq PRN Reason Stop Dose Admin Acetaminophen 650 mg 11/12/22 21:51 Acetaminophen Tab 325 Mg Tab PO Q6HR PRN Mild Pain or Fever > 100.5 Hydrocodone Bitart/Acetaminophen 1 each 11/12/22 21:51 Hydrocodone/Apap 5-325mg 1 Each Tab PO Q4HR PRN Moderate Pain (Scale 4 to 6) Sodium Chloride 1,000 mls @ 130 mls/hr 11/12/22 22:00 11/13/22 06:06 Saline 0.9% IV 130 mls/hr .Q7H42M HENRRY Administration Ibuprofen 400 mg 11/12/22 21:51 Ibuprofen 400 Mg Tab PO Q6HR PRN Mild Pain or Fever > 100.5 Metoclopramide HCl 10 mg 11/12/22 22:00 Metoclopramide 5 Mg/Ml 2 Ml Vial IVP Q6H PRN Nausea And Vomiting Morphine Sulfate 4 mg 11/12/22 21:51 Morphine Sulfate 4 Mg/Ml Syringe IV Q4HR PRN Severe Pain (Scale 7 to 10) Naloxone HCl 0.2 mg 11/12/22 21:51 Naloxone 0.4 Mg/Ml 1 Ml Vial IV Q2M PRN Opioid Reversal Ondansetron HCl 4 mg 11/12/22 21:51 Ondansetron 4 Mg/2 Ml Vial IVP Q8HR PRN Nausea And Vomiting Intake and Output 11/12/22 11/13/22 11/13/22 22:59 06:59 14:59 Other: # Voids 1 Weight 81.193 kg 83.5 kg 11/13/22 03:29 11/13/22 03:29
--- NOTE | 2022-11-13 11:35 | P.HPIM ---
History of Present Illness Patient is 62-year-old male came in with complains of nausea vomiting denied any chest pain. Patient does have some back issues but denied any flulike symptoms of body aches or fever chills. Patient has mildly elevated serum creatinine 1.09 with leukocytosis and low sodium of 1:30 and elevated potassium of 5.4. EKG showed sinus tachycardia without acute ST-T wave changes patient had mildly elevated troponin with an upward trend starting at 0.06 and the third one being 0.329, because of which cardiology is according cardiac catheterization patient is a presently on IV heparin. REVIEW OF SYSTEMS: CONSTITUTIONAL: No fever, no malaise, no fatigue. HEENT: No recent visual problems or hearing problems. Denied any sore throat. CARDIOVASCULAR: No chest pain, orthopnea, PND, no palpitations, no syncope. PULMONARY: No shortness of breath, no cough, no hemoptysis. GASTROINTESTINALno abdominal pain. NEUROLOGICAL: No headaches, no weakness, no numbness. HEMATOLOGICAL: Denies any bleeding or petechiae. GENITOURINARY: Denies any burning micturition, frequency, or urgency. MUSCULOSKELETAL/RHEUMATOLOGICAL: Denies any joint pain, swelling, or any muscle pain. ENDOCRINE: Denies any polyuria or polydipsia. The rest of the 14-point review of systems is negative. PHYSICAL EXAMINATION: GENERAL: The patient is alert and oriented x3, not in any acute distress. Well developed, well nourished. HEENT: Pupils are round and equally reacting to light. EOMI. No scleral icterus. No conjunctival pallor. Normocephalic, atraumatic. No pharyngeal erythema. No thyromegaly. CARDIOVASCULAR: S1 and S2 present. No murmurs, rubs, or gallops. PULMONARY: Chest is clear to auscultation, no wheezing or crackles. ABDOMEN: Soft, nontender, nondistended, normoactive bowel sounds. No palpable organomegaly. MUSCULOSKELETAL: No joint swelling or deformity. EXTREMITIES: No cyanosis, clubbing, or pedal edema. NEUROLOGICAL: Gross neurological examination did not reveal any focal deficits. SKIN: No rashes. Assessment and plan -Possibility of type I non-ST elevation myocardial infarction: Patient will be continued on IV heparin patient will undergo cardiac catheterization today -Nausea vomiting can be related to microinfarction or viral gastroenteritis patient was started on proton pump inhibitor and discontinue and states -Chronic low back pain -Hyperlipidemia -Nicotine use: Counseling was provided patient smokes cigars DVT prophylaxis: On IV heparin Past Medical History Past Medical History: GERD/Reflux, Hypertension Additional Past Medical History / Comment(s): headaches, borderline anemic, "low iron", "low WBC's", past acid refux, History of Any Multi-Drug Resistant Organisms: None Reported Past Surgical History: Hernia Repair, Orthopedic Surgery Additional Past Surgical History / Comment(s): beua knee arthroscopy, beau knee surgery as teen, Past Anesthesia/Blood Transfusion Reactions: No Reported Reaction Past Psychological History: Anxiety Smoking Status: Current every day smoker Past Alcohol Use History: None Reported Past Drug Use History: None Reported - Past Family History Father Family Medical History: Cancer Medications and Allergies Home Medications Medication Instructions Recorded Confirmed Type ALPRAZolam [Xanax] 0.5 mg PO BID PRN 04/16/19 11/12/22 History gemfibroziL [Lopid] 600 mg PO BID 04/16/19 11/12/22 History lisinopriL 30 mg PO DAILY 04/16/19 11/12/22 History Acetaminophen-Codeine 300-30mg 1 tab PO Q8H PRN 11/12/22 11/12/22 History [Tylenol w/codeine #3] Baclofen [Lioresal] 10 mg PO TID 11/12/22 11/12/22 History Escitalopram [Lexapro] 20 mg PO DAILY 11/12/22 11/12/22 History Magnesium (Unknown Strength) 1 dose PO DAILY 11/12/22 11/12/22 History Metoclopramide [Reglan] 10 mg PO Q6H PRN #20 tab 11/12/22 Rx Ondansetron Odt [Zofran Odt] 4 mg PO TID PRN 11/12/22 11/12/22 History Allergies Allergy/AdvReac Type Severity Reaction Status Date / Time No Known Allergies Allergy Verified 11/12/22 22:52 Physical Exam Vitals: Vital Signs Temp Pulse Pulse Resp BP BP Pulse Ox 11/13/22 08:00 99.0 F 92 17 124/79 97 11/13/22 04:00 98.4 F 96 16 133/89 99 11/12/22 23:26 98.2 F 92 18 153/95 98 11/12/22 22:45 94 17 109/83 96 11/12/22 22:30 170/106 97 11/12/22 22:15 112 H 157/102 96 11/12/22 21:45 121 H 16 165/110 98 11/12/22 21:30 121 H 19 164/106 98 11/12/22 21:15 112 H 17 167/107 98 11/12/22 21:00 121 H 17 154/117 99 11/12/22 20:45 115 H 16 166/114 98 11/12/22 20:30 110 H 18 186/118 98 11/12/22 20:15 172/108 11/12/22 20:00 20 170/114 98 11/12/22 19:51 124 H 18 170/114 99 11/12/22 19:37 98.9 F 142 H 22 159/105 98 Intake and Output 11/12/22 11/13/22 11/13/22 22:59 06:59 14:59 Intake Total 130 Balance 130 Intake: Intake, IV Titration 130 Amount Sodium Chloride 0.9% 1, 130 000 ml @ 130 mls/hr IV . Q7H42M [facility] Rx#:[id number] Other: # Voids 1 1 Weight 81.193 kg 83.5 kg Results CBC & Chem 7: 11/13/22 03:29 11/13/22 03:29 Labs: Abnormal Lab Results - Last 24 Hours (Table) 11/12/22 11/12/22 11/12/22 Range/Units 19:58 19:58 19:58 WBC 13.2 H (3.8-10.6) k/uL RBC (4.30-5.90) m/uL Hgb (13.0-17.5) gm/dL Hct (39.0-53.0) % Plt Count (150-450) k/uL Neutrophils # 11.8 H (1.3-7.7) k/uL Lymphocytes # 0.8 L (1.0-4.8) k/uL Sodium 130 L (137-145) mmol/L Potassium 5.4 H (3.5-5.1) mmol/L Carbon Dioxide 14 L (22-30) mmol/L BUN 43 H (9-20) mg/dL Glucose 157 H (74-99) mg/dL Troponin I 0.060 H* (0.000-0.034) ng/mL Urine Protein (Negative) Urine Glucose (UA) (Negative) Urine Ketones (Negative) Urine Blood (Negative) Ur Leukocyte Esterase (Negative) Urine RBC (0-5) /hpf Urine WBC (0-5) /hpf Hyaline Casts (0-2) /lpf Urine Mucus (None) /hpf 11/12/22 11/13/22 11/13/22 Range/Units 21:00 00:50 03:29 WBC (3.8-10.6) k/uL RBC (4.30-5.90) m/uL Hgb (13.0-17.5) gm/dL Hct (39.0-53.0) % Plt Count (150-450) k/uL Neutrophils # (1.3-7.7) k/uL Lymphocytes # (1.0-4.8) k/uL Sodium (137-145) mmol/L Potassium (3.5-5.1) mmol/L Carbon Dioxide (22-30) mmol/L BUN (9-20) mg/dL Glucose (74-99) mg/dL Troponin I 0.256 H* 0.329 H* (0.000-0.034) ng/mL Urine Protein 1+ H (Negative) Urine Glucose (UA) 1+ H (Negative) Urine Ketones 1+ H (Negative) Urine Blood Large H (Negative) Ur Leukocyte Esterase Small H (Negative) Urine RBC 97 H (0-5) /hpf Urine WBC 6 H (0-5) /hpf Hyaline Casts 151 H (0-2) /lpf Urine Mucus Few H (None) /hpf 11/13/22 11/13/22 Range/Units 03:29 03:29 WBC (3.8-10.6) k/uL RBC 3.89 L (4.30-5.90) m/uL Hgb 12.9 L (13.0-17.5) gm/dL Hct 37.0 L (39.0-53.0) % Plt Count 145 L (150-450) k/uL Neutrophils # (1.3-7.7) k/uL Lymphocytes # (1.0-4.8) k/uL Sodium 130 L (137-145) mmol/L Potassium (3.5-5.1) mmol/L Carbon Dioxide 21 L (22-30) mmol/L BUN 40 H (9-20) mg/dL Glucose 114 H (74-99) mg/dL Troponin I (0.000-0.034) ng/mL Urine Protein (Negative) Urine Glucose (UA) (Negative) Urine Ketones (Negative) Urine Blood (Negative) Ur Leukocyte Esterase (Negative) Urine RBC (0-5) /hpf Urine WBC (0-5) /hpf Hyaline Casts (0-2) /lpf Urine Mucus (None) /hpf Thrombosis Risk Factor Assmnt - Choose All That Apply Any of the Below Risk Factors Present?: No Other Risk Factors: Yes Each Risk Factor Represents 2 Points: Age 61-74 years Other congenital or acquired thrombophilia - If yes, enter type in comment: No Thrombosis Risk Factor Assessment Total Risk Factor Score: 2 Thrombosis Risk Factor Assessment Level: Low Risk
[2022-11-13] MEDS ORDERED: Acetaminophen-Codeine 300-30mg TAB PO PRN (11:36)
[2022-11-13] MEDS ORDERED: ONDANSETRON ODT 4 MG TAB PO PRN (11:36)
[2022-11-13] MEDS ORDERED: BACLOFEN 10 MG TAB PO PRN (11:36)
--- NOTE | 2022-11-13 12:25 | CA ---
Transthoracic Echo Report Name: Hank Moon Age: 62 Gender: M : 1960 Exam Date: 11/13/2022 07:48 Exam Location: [place] [facility] Ht (in): 71 Wt (lb): 184 Ordering Physician: Senait Wilkins Attending/Referring Phys: [id number], Franky Program Management Specialist Zen Giordano RDCS Procedure CPT: Indications: LVF Cardiac Hx: Technical Quality: Fair Contrast 1: Total Dose (mL): Contrast 2: Total Dose (mL): MEASUREMENTS (Male / Female) Normal Values 2D ECHO LV Diastolic Diameter PLAX 4.1 cm 4.2 - 5.9 / 3.9 - 5.3 cm LV Systolic Diameter PLAX 2.6 cm IVS Diastolic Thickness 1.2 cm 0.6 - 1.0 / 0.6 - 0.9 cm LVPW Diastolic Thickness 1.3 cm 0.6 - 1.0 / 0.6 - 0.9 cm LV Relative Wall Thickness 0.6 M-MODE Aortic Root Diameter MM 2.7 cm AV Cusp Separation MM 1.7 cm DOPPLER AV Peak Velocity 162.4 cm/s AV Peak Gradient 10.6 mmHg LVOT Peak Velocity 107.6 cm/s LVOT Peak Gradient 4.6 mmHg MV Area PHT 7.1 cm??? Mitral E Point Velocity 85.8 cm/s Mitral A Point Velocity 117.3 cm/s Mitral E to A Ratio 0.7 MV Deceleration Time 106.4 ms TR Peak Velocity 263.1 cm/s TR Peak Gradient 27.7 mmHg PV Peak Velocity 105.8 cm/s PV Peak Gradient 4.5 mmHg FINDINGS Left Ventricle Mildly increased septal wall thickness. Left ventricular cavity size normal. Grade 1 diastolic dysfunction. Left ventricular ejection fraction is estimated at 55-60%. Right Ventricle Normal right ventricular size. Normal right ventricular global systolic function. Right ventricular systolic pressure within normal limits. Right Atrium Normal right atrial size. Left Atrium Normal left atrial size. Mitral Valve Structurally normal mitral valve. Trace to mild mitral regurgitation. Aortic Valve Trileaflet aortic valve. No aortic regurgitation. No aortic stenosis. Tricuspid Valve Structurally normal tricuspid valve. No tricuspid regurgitation. Pulmonic Valve Structurally normal pulmonic valve. Pericardium Normal pericardium. No pericardial or pleural effusion. Aorta Normal size aortic root and proximal ascending aorta. CONCLUSIONS Left ventricular ejection fraction 55-60% Trace to mild mitral regurgitation No tricuspid regurgitation No pericardial effusion Previewed by: Dr. Gil Moy DO (Electronically Signed) Final Date: 13 November 2022 12:24
[2022-11-13] MEDS ORDERED: VERAPAMIL 2.5 MG/ML 2 ML AMP ONE (13:39)
[2022-11-13] MEDS ORDERED: fentaNYL (PF) 50 MCG/ML 2 ML AMP ONE (13:45)
[2022-11-13] MEDS ORDERED: SODIUM CHLORIDE 0.9% 500 ML 500 ML IV ONE (13:47)
[2022-11-13] MEDS ORDERED: fentaNYL (PF) 50 MCG/ML 2 ML AMP IV ONE (13:48)
[2022-11-13] MEDS ORDERED: LIDOCAINE 1% INJ 10MG/ML (5 ML VIAL-PF) SQ ONE (13:48)
[2022-11-13] MEDS ORDERED: VERAPAMIL SYRINGE (5 MG/10 ML) INTRAARTER ONE (13:49)
[2022-11-13] MEDS ORDERED: MIDAZOLAM 2 MG/2 ML VIAL IV ONE (13:54)
[2022-11-13] MEDS ORDERED: PRASUGREL 10 MG TAB ONE (14:01)
[2022-11-13] MEDS ORDERED: PRASUGREL 10 MG TAB PO ONE (14:04)
[2022-11-13] MEDS ORDERED: IOPAMIDOL-370 125ML BTL INJ ONE (14:13)
[2022-11-13] MEDS ORDERED: IOPAMIDOL-370 100ML BTL INJ ONE (14:18)
[2022-11-13] MEDS ORDERED: RX INFO: IV CONTRAST WAS GIVEN 1 EACH MISC MISCELLANE PRN (14:26)
[2022-11-13] MEDS ORDERED: ATROPINE SULFATE 0.1 MG/ML 10ML SYRINGE IV PRN (14:26)
[2022-11-13] MEDS ORDERED: MAG HYDROX/AL HYDROX/SIMETH 30 ML CUP PO PRN (14:26)
[2022-11-13] MEDS ORDERED: ZOLPIDEM 5 MG TAB PO PRN (14:26)
[2022-11-13] MEDS ORDERED: SODIUM CHLORIDE 0.9% 1,000 ML in EMPTY BAG 1 BAG IV SCH (14:30)
--- NOTE | 2022-11-13 14:36 | P.CARDCATH ---
Date of Procedure: 11/13/22 Description of Procedure: Cardiac Catheterization: The patient is a 62-year-old male with a known history of smoking and hypertension as well as hyperlipidemia who presented with nausea and vomiting and troponin elevation consistent with non-STEMI. He had no acute ST segment changes. Recommendations were made regarding cardiac catheterization, the risks and the complications were discussed with the patient who is in full understanding and agreement. 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 Using Xylocaine Anesthesia and Seldinger technique, a 6-[place] Lucian sheath was introduced in the right radial artery . Subsequently, selective coronary angiography was performed using a 5-[place] Lucian 3.5 bend Kylee catheter. Multiple views of the coronary artery including hemiaxial views were obtained. The 5-[place] Lucian pigtail catheter was used to cross the aortic valve and LVEDP was calculated. PCI: After removing the catheter a 6-[place] Lucian 0.75 AL guiding catheter was introduced and after cannulating the right coronary ostium a 0.014 BMW J-wire was positioned distally subsequently a 4.0 x 18 mm Xience master point stent was deployed at 16 guerrero after removing the catheter an IVUS [place] was introduced and images were obtained, after removing the catheter a 4.0 x 15 mm NC Treck balloon was advanced and one inflation at 12 guerrero was done, after removing the balloon and the wire images were obtained and revealed successful stenting. Following that, catheter and sheath were removed. Hemostasis was obtained with deployment of TR band . There was no immediate complication. Patient was returned to room in stable condition. Of note, the patient received a total of 6000 units of intravenous heparin as well as intra-arterial verapamil. He received an oral loading dose of Effient, his ACT was followed. He had no significant chest discomfort or EKG changes. Findings: Fluoroscopy: Calcification of the LAD was noted. Left main: This is a large sized vessel, bifurcating into LAD and left circumflex, left main has no high-grade stenosis LAD: This is a large size vessel, reaching to the apex, giving rise to a large diagonal branch, the LAD has mild disease in the midsegment of 20% with no high- grade stenosis, there is mild plaque proximally. Left circumflex: This is a nondominant vessel, giving rise to a large obtuse marginal branch that has 2 branching segment. The proximal segment of the obtuse marginal branch has a 30-40% plaque. The inferior branch at the takeoff has a 70-80% stenosis the rest of the vessel has no high-grade stenosis RCA: This is a large dominant vessel, bifurcating into PDA and PLV, the midsegment has diffuse 30% plaque then in the distal segment of the mid RCA there is a hazy area with stenosis up to 70%. The rest of the vessel has no high-grade stenosis. Left Ventriculogram: Not performed Hemodynamics: There was no gradient across the aortic valve , LVEDP was 12-16 mmHg Conclusion: 1. Significant stenosis in the mid RCA, appears to be an acute plaque rupture 2. Significant disease in the obtuse marginal branch 3. Mild disease in the LAD 4. Successful stenting of the mid RCA with reduction of stenosis from 70% to 0% with intravascular ultrasound imaging Recommendations: The patient will continue on aspirin and Effient for 1 year without any interruption, he will continue aggressive coronary risk modification was close follow-up of his left circumflex obtuse marginal branch lesion to see if intervention is needed.. The findings and the recommendations were discussed with the patient and the family and they were in full understanding and agreement. Duration of sedation is 34 minutes.
[2022-11-13] MEDS: lisinopriL 10 MG TAB PO SCH (15:05)
[2022-11-13] MEDS: METOPROLOL TARTRATE 50 MG TAB PO SCH (15:05)
[2022-11-13] MEDS: ONDANSETRON 4 MG/2 ML VIAL IVP PRN (18:11)
[2022-11-13] MEDS: FAMOTIDINE 20 MG/2 ML VIAL IV SCH (20:20)
[2022-11-13] MEDS ORDERED: FENOFIBRATE 160 MG TAB PO SCH (21:00)
[2022-11-14] MEDS: METOPROLOL TARTRATE 50 MG TAB PO SCH ×2 (00:26→08:45)
[2022-11-14 04:04] VITALS: TEMP 98.4
[2022-11-14] MEDS: ONDANSETRON 4 MG/2 ML VIAL IVP PRN (04:07)
[2022-11-14 06:56] LABS: HCT 37.2 % (39.0-53.0); HGB 12.9 gm/dL (13.0-17.5); MCH 33.3 pg (25.0-35.0); MCHC 34.8 g/dL (31.0-37.0); MCV 95.7 fL (80.0-100.0); Mean Platelet Volume 8.7; Platelet Count 121 k/uL (150-450); RBC 3.88 m/uL (4.30-5.90); RDW 12.5 % (11.5-15.5); WBC 8.8 k/uL (3.8-10.6)
[2022-11-14] MEDS ORDERED: HEPARIN SODIUM,PORCINE 10,000 UNIT in SODIUM CHLORIDE 0.9% 1,000 ML IRRIGATION PRN (07:00)
[2022-11-14] MEDS ORDERED: HEPARIN SODIUM,PORCINE 2,500 UNIT in SODIUM CHLORIDE 0.9% 250 ML IRRIGATION PRN (07:00)
[2022-11-14 07:24] LABS: Sodium 131 mmol/L (137-145)
[2022-11-14 07:25] LABS: African American GFR (CKD) >90 (>60 ml/min/1.73 sqM); Anion Gap 8 mmol/L; Blood Urea Nitrogen 30 mg/dL (9-20); Calcium 8.3 mg/dL (8.4-10.2); Carbon Dioxide 20 mmol/L (22-30); Chloride 103 mmol/L (98-107); Glucose 92 mg/dL (74-99); Non-African American GFR(CKD) >90 (>60 ml/min/1.73 sqM); Potassium 4.8 mmol/L (3.5-5.1)
[2022-11-14 08:19] VITALS: RESP 17
[2022-11-14] MEDS: SODIUM CHLORIDE 0.9% 1,000 ML IV SCH (08:41)
[2022-11-14] MEDS: FAMOTIDINE 20 MG/2 ML VIAL IV SCH (08:45)
[2022-11-14] MEDS: MORPHINE SULFATE 4 MG/ML SYRINGE IV PRN (08:47)
[2022-11-14] MEDS ORDERED: ESCITALOPRAM 20 MG TAB PO SCH (09:00)
[2022-11-14] MEDS ORDERED: PRASUGREL 10 MG TAB PO SCH (09:00)
[2022-11-14] MEDS ORDERED: ASPIRIN 81 MG PO SCH (09:00)
[2022-11-14] MEDS ORDERED: ATORVASTATIN 40 MG TAB PO SCH (09:00)
--- NOTE | 2022-11-14 11:44 | P.PN ---
Subjective Progress Note Date: 11/14/22 Elevated troponins History of present illness: History of present illness: This is a 62 year old male with past medical history of chronic back pain with multiple pain procedures with plan for surgical intervention with Dr. Weathers, hyperlipidemia, depression and anxiety. Patient denies having any previous cardiac history and does not follow with a case management director. We have been asked to see him regarding elevated troponins. Patient states that he has had ongoing problems with acne and on suspects all injections, currently on Tylenol 3 that does not seem to be helping his pain. He has stopped eating and drinking normally and has lost some weight. Yesterday morning first thing when he got up he started having vomiting. No abdominal pain no diarrhea. He did have a savage l bowel movement this morning. He has denied having any chest pain or pressure, no upper back discomfort. No shortness of breath. His walking is limited due to back pain but does not describe chest pain when he's doing activity. He states that the morphine helped his back pain last night. Vomiting has now resolved. He presented with a blood pressure 170/114 and heart rate of 142. In the emergency center, he received labetalol IV 2 L of IV fluids, morphine and Toradol. EKG sinus tachycardia at 127 bpm KUB nonacute abdomen. No adverse change. WBC 13.2, hemoglobin 15.3, platelet count 248. Sodium 130, potassium 5.4, BUN 43 creatinine 1.09. Blood sugar is 157. Troponin 0.06, 0.256, 0.3-9. TSH 1.71. Influenza A, influenza B, are SVNs Covid 19 not detected. Urinalysis is bloody. Home cardiac medications: Lopid 600 mg twice daily, lisinopril 30 mg daily 11/14 Today, patient underwent cardiac catheterization with Dr. Morin that found the RCA with an acute plaque rupture, disease in the obtuse marginal and mild disease in the LAD. The RCA was stented with good results. Patient has been started on Effient, aspirin, statin and beta carlos. This morning, patient denies having any chest pain, shortness of breath, lightheadedness or dizziness. Patient did have a little bit of nausea last evening. Patient is anxious to go home today. Echocardiogram reveals EF 55-60%, trace to mild MR Physical examination: Gen: This is a 62-year-old male. He is resting in bed and appears to be comfortable and in no acute distress. VS: reviewed HEENT: Head is atraumatic, normocephalic. Pupils equal, round. Sclerae is anicteric. NECK: Supple. No JVD. . LUNGS: Clear to auscultation. No wheezes or rhonchi. No intercostal retractions. HEART: Regular rate and rhythm. No murmur. ABDOMEN: Soft No tenderness. EXTREMITIES: No pedal edema. No calf tenderness. NEUROLOGICAL: Patient is awake, alert and oriented x3. Assessment: Non-ST elevated myocardial infarction Vomiting, possible viral gastritis Chronic back pain Hyperlipidemia Plan: Continue patient on baby aspirin 81 mg daily, atorvastatin 40 mg daily, Lopressor 50 mg twice daily, Effient 10 mg daily Cigar smoking cessation discussed with the patient. Patient is cleared from cardiology for discharge with follow-up with Dr. Robles in the office in one to 2 weeks. Nurse practitioner note has been reviewed, I agree with documented findings and plan of care. Patient was seen and examined. Objective - Vital Signs Vital signs: Vital Signs Temp 98.4 F 11/14/22 04:04 Pulse 56 L 11/14/22 04:04 Resp 18 11/14/22 04:04 BP 145/88 11/14/22 04:04 Pulse Ox 98 11/14/22 04:04 FiO2 Intake & Output 11/13/22 11/14/22 11/14/22 18:59 06:59 18:59 Intake Total 1080 Balance 1080 Weight 83.5 kg 83 kg Intake: IV 350 Intake, IV Titration 730 Amount Sodium Chloride 0.9% 1, 730 000 ml @ 75 mls/hr IV . [id number] [facility] Rx#:[id number] Other: Voiding Method Toilet # Voids 1 2 - Labs CBC & Chem 7: 11/14/22 05:56 11/14/22 05:56 Labs: Abnormal Lab Results - Last 24 Hours (Table) 11/14/22 11/14/22 Range/Units 05:56 05:56 RBC 3.88 L (4.30-5.90) m/uL Hgb 12.9 L (13.0-17.5) gm/dL Hct 37.2 L (39.0-53.0) % Plt Count 121 L (150-450) k/uL Sodium 131 L (137-145) mmol/L
[2022-11-14 12:03] VITALS: BP 133/80; PULSE 59
[2022-11-14] MEDS: lisinopriL 10 MG TAB PO SCH (13:06)
[2022-11-14 13:09] VITALS: BMI 24.1
--- NOTE | 2022-11-27 13:50 | P.PN ---
Subjective Progress Note Date: 11/14/22 Patient is 62-year-old male came in with complains of nausea vomiting denied any chest pain. Patient does have some back issues but denied any flulike symptoms of body aches or fever chills. Patient has mildly elevated serum creatinine 1.09 with leukocytosis and low sodium of 1:30 and elevated potassium of 5.4. EKG showed sinus tachycardia without acute ST-T wave changes patient had mildly elevated troponin with an upward trend starting at 0.06 and the third one being 0.329, because of which cardiology is according cardiac catheterization patient is a presently on IV heparin. 11/14/2022 Patient is currently lying in the bed. Awake alert and oriented. Underwent cardiac catheterization and found have RCA with acute rupture.disease in the obtuse marginal and mild disease in the LAD. The RCA was stented with good results. Patient was started on dual antiplatelets. Otherwise patient denied any complaints of chest pain or shortness of breath. No headache or dizziness or lightheadedness. No nausea vomiting or diarrhea. Next and 2-D echo cardiac exam today decision fraction 25-60% and trace MR REVIEW OF SYSTEMS: CONSTITUTIONAL: No fever, no malaise, no fatigue. HEENT: No recent visual problems or hearing problems. Denied any sore throat. CARDIOVASCULAR: No chest pain, orthopnea, PND, no palpitations, no syncope. PULMONARY: No shortness of breath, no cough, no hemoptysis. GASTROINTESTINALno abdominal pain. NEUROLOGICAL: No headaches, no weakness, no numbness. HEMATOLOGICAL: Denies any bleeding or petechiae. GENITOURINARY: Denies any burning micturition, frequency, or urgency. MUSCULOSKELETAL/RHEUMATOLOGICAL: Denies any joint pain, swelling, or any muscle pain. ENDOCRINE: Denies any polyuria or polydipsia. The rest of the 14-point review of systems is negative. PHYSICAL EXAMINATION: GENERAL: The patient is alert and oriented x3, not in any acute distress. Well developed, well nourished. HEENT: Pupils are round and equally reacting to light. EOMI. No scleral icterus. No conjunctival pallor. Normocephalic, atraumatic. No pharyngeal erythema. No thyromegaly. CARDIOVASCULAR: S1 and S2 present. No murmurs, rubs, or gallops. PULMONARY: Chest is clear to auscultation, no wheezing or crackles. ABDOMEN: Soft, nontender, nondistended, normoactive bowel sounds. No palpable organomegaly. MUSCULOSKELETAL: No joint swelling or deformity. EXTREMITIES: No cyanosis, clubbing, or pedal edema. NEUROLOGICAL: Gross neurological examination did not reveal any focal deficits. SKIN: No rashes. Assessment and plan -Acute type I non-ST elevation myocardial infarction: Status post cardiac catheterization and stent placement today. -Nausea vomiting can be related to microinfarction or viral gastroenteritis patient was started on proton pump inhibitor and discontinue and states -Chronic low back pain -Hyperlipidemia -Nicotine use: Counseling was provided patient smokes cigars DVT prophylaxis: On IV heparin Objective - Vital Signs Vital signs: Vital Signs Temp 98.4 F 11/14/22 04:04 Pulse 69 11/14/22 08:00 Resp 17 11/14/22 08:00 BP 115/75 11/14/22 08:00 Pulse Ox 99 11/14/22 09:03 FiO2 Intake & Output 11/13/22 11/14/22 11/14/22 18:59 06:59 18:59 Intake Total 1080 555 Balance 1080 555 Weight 83.5 kg 83 kg Intake: IV 350 Intake, IV Titration 730 75 Amount Sodium Chloride 0.9% 1, 730 75 000 ml @ 75 mls/hr IV . [id number] [facility] Rx#:[id number] Oral 480 Other: Voiding Method Toilet Toilet # Voids 1 2 1 - Labs CBC & Chem 7: 11/14/22 05:56 11/14/22 05:56 Labs: Abnormal Lab Results - Last 24 Hours (Table) 11/14/22 11/14/22 Range/Units 05:56 05:56 RBC 3.88 L (4.30-5.90) m/uL Hgb 12.9 L (13.0-17.5) gm/dL Hct 37.2 L (39.0-53.0) % Plt Count 121 L (150-450) k/uL Sodium 131 L (137-145) mmol/L Carbon Dioxide 20 L (22-30) mmol/L BUN 30 H (9-20) mg/dL Calcium 8.3 L (8.4-10.2) mg/dL
--- NOTE | 2022-11-27 13:51 | P.DS ---
Providers Date of admission: 11/12/22 21:51 Expected date of discharge: 11/14/22 Attending physician: Suleiman Roy Consults: 11/12/22 21:51 Consult Physician Urgent Consulting Provider: Gilles Zacarias Consult Reason/Comments: Elevated troponin Do you want consulting provider notified?: Yes, Notify in am 11/13/22 14:26 Consult Physician Routine Consulting Provider: [facility] Consult Reason/Comments: Post Interventional Patient Do you want consulting provider notified?: Already Contacted Primary care physician: Filipe Godinez [facility] Course: Discharge diagnosis -Acute type I non-ST elevation myocardial infarction: Status post cardiac catheterization and stent placement today. -Nausea vomiting can be related to microinfarction or viral gastroenteritis patient was started on proton pump inhibitor and discontinue and states -Chronic low back pain -Hyperlipidemia -Nicotine use: Counseling was provided patient smokes cigars DVT prophylaxis Hospital course Patient is 62-year-old male came in with complains of nausea vomiting denied any chest pain. Patient does have some back issues but denied any flulike symptoms of body aches or fever chills. Patient has mildly elevated serum creatinine 1.09 with leukocytosis and low sodium of 1:30 and elevated potassium of 5.4. EKG showed sinus tachycardia without acute ST-T wave changes patient had mildly elevated troponin with an upward trend starting at 0.06 and the third one being 0.329, because of which cardiology is according cardiac catheterization patient is a presently on IV heparin. 11/14/2022 Patient is currently lying in the bed. Awake alert and oriented. Underwent cardiac catheterization and found have RCA with acute rupture.disease in the obtuse marginal and mild disease in the LAD. The RCA was stented with good results. Patient was started on dual antiplatelets. Otherwise patient denied any complaints of chest pain or shortness of breath. No headache or dizziness or lightheadedness. No nausea vomiting or diarrhea. Next and 2-D echo cardiac exam today decision fraction 25-60% and trace MR PHYSICAL EXAMINATION: Patient is lying in the bed comfortably, no acute distress, awake alert and oriented.. HEENT: Normocephalic. Neck is supple. Pupils reactive. Nostrils clear. Oral cavity is moist. Neck reveals no JVD, carotid bruits, or thyromegaly. CHEST EXAMINATION: Trachea is central. Symmetrical expansion. Lung veliz clear to auscultation and percussion. CARDIAC: Normal S1, S2 with no gallops. No murmurs ABDOMEN: Soft. Bowel sounds normal. No organomegaly. No abdominal bruits. Extremities: reveal no edema. No clubbing or cyanosis Neurologically awake, alert, oriented x3 with well-coordinated movements. No focal deficits noted Skin: No rash or skin lesions. Psychiatric: Coperative. Nonsuicidal Musculoskeletal: No joint swelling or deformity. Normal range of motion. Vital signs: Vital Signs Temp 98.4 F 11/14/22 04:04 Pulse 69 11/14/22 08:00 Resp 17 11/14/22 08:00 BP 115/75 11/14/22 08:00 Pulse Ox 99 11/14/22 09:03 FiO2 Intake & Output 11/13/22 11/14/22 11/14/22 18:59 06:59 18:59 Intake Total 1080 555 Balance 1080 555 Weight 83.5 kg 83 kg Intake: IV 350 Intake, IV Titration 730 75 Amount Sodium Chloride 0.9% 1, 730 75 000 ml @ 75 mls/hr IV . [id number] [facility] Rx#:[id number] Oral 480 Other: Voiding Method Toilet Toilet # Voids 1 2 1 Patient Condition at Discharge: Stable Plan - Discharge Summary Discharge Rx Participant: No New Discharge Prescriptions: New Metoclopramide [Reglan] 10 mg PO Q6H PRN #20 tab PRN Reason: Nausea And Vomiting Aspirin 81 mg PO DAILY tab Prasugrel [Effient] 10 mg PO DAILY #90 tab Atorvastatin [Lipitor] 40 mg PO DAILY #90 tab Metoprolol Tartrate [Lopressor] 50 mg PO BID #180 tab lisinopriL [Zestril] 10 mg PO 1200 #90 tab Continue ALPRAZolam [Xanax] 0.5 mg PO BID PRN PRN Reason: Anxiety Ondansetron Odt [Zofran ODT] 4 mg PO TID PRN PRN Reason: Nausea Acetaminophen-Codeine 300-30mg [Tylenol w/codeine #3] 1 tab PO Q8H PRN PRN Reason: Pain Escitalopram [Lexapro] 20 mg PO DAILY Baclofen [Lioresal] 10 mg PO TID Magnesium (Unknown Strength) 1 dose PO DAILY Discontinued gemfibroziL [Lopid] 600 mg PO BID lisinopriL 30 mg PO DAILY Discharge Medication List ALPRAZolam [Xanax] 0.5 mg PO BID PRN 04/16/19 [History] Acetaminophen-Codeine 300-30mg [Tylenol w/codeine #3] 1 tab PO Q8H PRN 11/12/22 [History] Baclofen [Lioresal] 10 mg PO TID 11/12/22 [History] Escitalopram [Lexapro] 20 mg PO DAILY 11/12/22 [History] Magnesium (Unknown Strength) 1 dose PO DAILY 11/12/22 [History] Metoclopramide [Reglan] 10 mg PO Q6H PRN #20 tab 11/12/22 [Rx] Ondansetron Odt [Zofran ODT] 4 mg PO TID PRN 11/12/22 [History] Aspirin 81 mg PO DAILY tab 11/14/22 [Rx] Atorvastatin [Lipitor] 40 mg PO DAILY #90 tab 11/14/22 [Rx] Metoprolol Tartrate [Lopressor] 50 mg PO BID #180 tab 11/14/22 [Rx] Prasugrel [Effient] 10 mg PO DAILY #90 tab 11/14/22 [Rx] lisinopriL [Zestril] 10 mg PO 1200 #90 tab 11/14/22 [Rx] Follow up Appointment(s)/Referral(s): Pola Robles MD [STAFF PHYSICIAN] - 1 Week (office will call you with appt. time) Filipe Godinez MD [Primary Care Provider] - 1-2 days (November 18 10:30) Patient Instructions/Handouts: *Surgery [facility] - After Heart Catheterization - Box Sealing Inspector Instructions, Chest Pain (DC) Discharge Disposition: HOME SELF-CARE
== END 2022-11-14 13:31 | disposition home or self-care (01) | DRG 247 ==
LOC: EC 19:28 → 3SCARD 21:51 → OBSVTOIN 21:51 → 3SCARD 22:39
PROVIDERS: ADMIT Hospitalist; ATTEND Hospitalist
PROC: 4A023N7 Measurement of Cardiac Sampling and Pressure, Left Heart, Percutaneous Approach (ICD-10-PCS; principal; 2022-11-13 09:25)
PROC: 027034Z Dilation of Coronary Artery, One Artery with Drug-eluting Intraluminal Device, Percutaneous Approach (ICD-10-PCS; 2022-11-13 09:25)
PROC: B2111ZZ Fluoroscopy of Multiple Coronary Arteries using Low Osmolar Contrast (ICD-10-PCS; 2022-11-13 09:25)
PROC: B240ZZ3 Ultrasonography of Single Coronary Artery, Intravascular (ICD-10-PCS; 2022-11-13 09:25)
DX: I21.4 Non-ST elevation (NSTEMI) myocardial infarction (principal); I10 Essential (primary) hypertension; F32.A Depression, unspecified; R63.4 Abnormal weight loss; A08.4 Viral intestinal infection, unspecified; E78.5 Hyperlipidemia, unspecified; R00.0 Tachycardia, unspecified; E86.0 Dehydration; G89.29 Other chronic pain; F41.9 Anxiety disorder, unspecified; F17.290 Nicotine dependence, other tobacco product, uncomplicated; I25.10 Atherosclerotic heart disease of native coronary artery without angina pectoris; I25.84 Coronary atherosclerosis due to calcified coronary lesion; N20.0 Calculus of kidney; Z20.822 Contact with and (suspected) exposure to COVID-19; Z28.311 Partially vaccinated for COVID-19; Z79.899 Other long term (current) drug therapy; Z68.24 Body mass index [BMI] 24.0-24.9, adult; Z71.6 Tobacco abuse counseling
CPT/HCPCS: 36415; 74018; 80048; 80053; 81001; 82150; 83690; 83735; 84443; 84484; 85025; 85027; 87636; 92978; 93005; 93306; 93458; 94760; 96361; 96374; 96375; 99285

== ENCOUNTER → 2022-11-26 | Outpatient (CLI) | payer MEDICAID ==
[2022-11-26 15:44] LABS: Basophils # (A) 0.02 X 10*3/uL (0.00-0.10); Basophils % (A) 0.2 %; Eosinophils # (A) 0.02 X 10*3/uL (0.04-0.35); Eosinophils % (A) 0.2 %; HCT 41.6 % (39.6-50.0); HGB 14.1 g/dL (13.0-17.0); Immature Grans, Automated 0.6 %; Lymphocytes # (A) 2.49 X 10*3/uL (0.90-5.00); Lymphocytes % (A) 24.3 %; MCH 32.9 pg (27.0-32.0); MCHC 33.9 g/dL (32.0-37.0); Mean Platelet Volume 10.6 fL (9.5-12.2); Monocytes # (A) 0.74 X 10*3/uL (0.20-1.00); Monocytes % (A) 7.2 %; NRBC Per 100 WBC 0 /100 WBCS (0.0-0.0); Neutrophils # (A) 6.92 X 10*3/uL (1.80-7.70); Neutrophils % (A) 67.5 %; Platelet Count 251 X 10*3/uL (140-440); RBC 4.29 X 10*6/uL (4.40-5.60); WBC 10.25 X 10*3/uL (4.50-10.00)
[2022-11-26 17:28] LABS: Magnesium 2.1 mg/dL (1.5-2.4)
[2022-11-26 17:37] LABS: African American GFR (CKD) 104.2 (60.0-200.0); Albumin 3.9 g/dL (3.8-4.9); Albumin/Globulin Ratio 1.39 (1.60-3.17); Anion Gap 13.1 mmol/L (10.00-18.00); BUN/Creat Ratio 28.67 Ratio (12.00-20.00); Blood Urea Nitrogen 25.8 mg/dL (9.0-27.0); Calcium 9.1 mg/dL (8.7-10.3); Carbon Dioxide 21.9 mmol/L (20.0-27.5); Globulin 2.8 g/dL (1.6-3.3); Non-African American GFR(CKD) 89.9 (60.0-200.0); Potassium 4.2 mmol/L (3.5-5.5); Total Bilirubin 0.6 mg/dL (0.30-1.20); Total Protein 6.7 g/dL (6.2-8.2)
== END | disposition home or self-care (01) ==
LOC: LABWHC1 09:58
PROVIDERS: ATTEND Internal Medicine
DX: D64.9 Anemia, unspecified (principal); E86.0 Dehydration
CPT/HCPCS: 36415; 80053; 83735; 85025

== ENCOUNTER → 2022-12-10 | Outpatient (CLI) | payer MEDICAID ==
--- NOTE | 2022-12-10 08:14 | US ---
EXAMINATION TYPE: US abdomen complete DATE OF EXAM: 12/10/2022 COMPARISON: NONE CLINICAL INDICATION: Male, 62 years old with history of R11.2 NAUSEA WITH VOMITING; N/V for 1 day ziyad t ended with an IN TECHNIQUE: Multiple sonographic images of the abdomen are obtained. FINDINGS: EXAM MEASUREMENTS: Liver Length: 17.4 cm Gallbladder Wall: 0.3 cm CBD: 0.7 cm Spleen: 13.2 cm Right Kidney: 10.8 x 5.5 x 5.4 cm Left Kidney: 10.8 x 4.7 x 6.1 cm Pancreas: wnl Liver: wnl Gallbladder: wnl Evidence for sonographic Hyatt's sign: no CBD: wnl Spleen: wnl Right Kidney: wnl Left Kidney: wnl Upper IVC: wnl Abd Aorta: wnl The liver is homogenous. The intrahepatic portion of the IVC and proximal abdominal aorta are within normal limits. There is no evidence of cholelithiasis. Common bile duct is unremarkable. The visu alized portions of the pancreas are homogenous. The spleen is unremarkable. Kidneys are symmetric a nd free of hydronephrosis. No renal lesions are seen. IMPRESSION: No distinct abnormality seen.
== END | disposition home or self-care (01) ==
LOC: RADUSWWP 07:32
PROVIDERS: ATTEND Internal Medicine
DX: R11.2 Nausea with vomiting, unspecified (principal)
CPT/HCPCS: 76700

== ENCOUNTER 2023-01-14 18:24 | Observation (INO) | payer MEDICAID ==
--- NOTE | 2023-01-14 18:34 | ED ---
General Adult HPI - General Source: RN notes reviewed <Tejal Dsouza - Last Filed: 01/14/23 18:34> - General Source: patient, RN notes reviewed Mode of arrival: ambulatory Limitations: no limitations - History of Present Illness MD Complaint: Chest pain <Damaris Stubbs - Last Filed: 01/14/23 23:33> - General Chief complaint: Chest Pain Stated complaint: chest pain Time Seen by Provider: 01/14/23 18:34 - History of Present Illness Initial comments: 62-year-old male with a past medical history significant for [place] presents to the emergency department. Patient reports sharp chest worse with mo vement. (Tejal Dsouza) When I went to evaluate the patient, he states that the chest pain started earlier this evening. Describes it as both sharp and dull/aching in the left side of his chest. Also has nausea/vomiting and feels weak and shaky. Patient did have an NSTEMI 2 months ago, and presented in a very similar way in terms of the nausea/vomiting, weakness, and shaking, however he did not have any chest pain at that time. He saw his internet sales manager earlier today, however he was not experiencing chest pain then. Reports minor shortness of breath. His r eports that the patient has not had much of an appetite over the last couple of months resulting in a large weight loss. Patient believes that some aspect of this is due to his chronic back pain. He was supposed to have back surgery which was delayed due to the NSTEMI. Denies any fevers, chills, sore throat, cough, palpitations, abdominal pain, diarrhea, or headaches. (Damaris Stubbs) - Related Data Home Medications Medication Instructions Recorded Confirmed ALPRAZolam [Xanax] 0.5 mg PO BID PRN 04/16/19 01/14/23 Baclofen [Lioresal] 10 mg PO TID 11/12/22 01/14/23 Escitalopram [Lexapro] 20 mg PO DAILY 11/12/22 01/14/23 HYDROcodone/APAP 7.5-325MG [[place] 1 tab PO Q6HR PRN 01/14/23 01/14/23 7.5-325] Pantoprazole Sodium [Protonix] 40 mg PO AC-BID 01/14/23 01/14/23 lisinopriL [Zestril] 5 mg PO BID 01/14/23 01/14/23 Previous Rx's Medication Instructions Recorded Metoclopramide [Reglan] 10 mg PO Q6H PRN #20 tab 11/12/22 Aspirin 81 mg PO DAILY tab 11/14/22 Atorvastatin [Lipitor] 40 mg PO DAILY #90 tab 11/14/22 Metoprolol Tartrate [Lopressor] 50 mg PO BID #180 tab 11/14/22 Prasugrel [Effient] 10 mg PO DAILY #90 tab 11/14/22 Allergies Allergy/AdvReac Type Severity Reaction Status Date / Time No Known Allergies Allergy Verified 01/14/23 21:20 Review of Systems ROS Other: All systems not noted in ROS Statement are negative. <Tejal Dsouza - Last Filed: 01/14/23 18:34> ROS Other: All systems not noted in ROS Statement are negative. <Damaris Stubbs - Last Filed: 01/14/23 23:33> ROS Statement: Those systems with pertinent positive or pertinent negative responses have been documented in the HPI. Past Medical History Past Medical History: GERD/Reflux, Hypertension Additional Past Medical History / Comment(s): headaches, borderline anemic, "low iron", "low WBC's", past acid refux, History of Any Multi-Drug Resistant Organisms: None Reported Past Surgical History: Hernia Repair, Orthopedic Surgery Additional Past Surgical History / Comment(s): beau knee arthroscopy, beau knee surgery as teen, Past Anesthesia/Blood Transfusion Reactions: No Reported Reaction Past Psychological History: Anxiety Smoking Status: Current every day smoker Past Alcohol Use History: None Reported Past Drug Use History: None Reported - Past Family History Father Family Medical History: Cancer <Tejal Dsouza - Last Filed: 01/14/23 18:34> General Exam <Tejal Dsouza - Last Filed: 01/14/23 18:34> Limitations: no limitations General appearance: alert, in no apparent distress Head exam: Present: atraumatic, normocephalic, normal inspection Respiratory exam: Present: normal lung sounds bilaterally. Absent: respiratory distress, wheezes, rales, rhonchi, stridor Cardiovascular Exam: Present: regular rate, normal rhythm, normal heart sounds. Absent: systolic murmur, diastolic murmur, rubs, gallop, clicks GI/Abdominal exam: Present: soft, normal bowel sounds. Absent: distended, tenderness, guarding, rebound, rigid Neurological exam: Present: alert, oriented X3, CN II-XII intact Psychiatric exam: Present: normal affect, normal mood Skin exam: Present: warm, dry, intact, normal color. Absent: rash <Damaris Stubbs - Last Filed: 01/14/23 23:33> - General Exam Comments Initial Comments: Visual Physical Exam Vital signs reviewed General: Well-appearing, nontoxic, no acute distress. Head: Normocephalic, atraumatic Eyes: PERRLA, EOMI ENT: Airway patent Chest: Nonlabored breathing Skin: No visual rash, normal skin tone Neuro: Alert and oriented 3 Musculoskeletal: No gross abnormalities (Tejal Dsouza) Course Vital Signs 01/14/23 01/14/23 18:47 19:50 Temperature 97.9 F Pulse Rate 81 70 Respiratory 20 15 Rate Blood Pressure 146/96 157/99 O2 Sat by Pulse 100 17 L Oximetry Medical Decision Making - Lab Data Result diagrams: 01/14/23 19:50 01/14/23 19:50 - Radiology Data Radiology results: report reviewed, image reviewed <Damaris Stubbs - Last Filed: 01/14/23 23:33> - Medical Decision Making This is a 62-year-old male who presents to the emergency department for chest pain. Was pt. sent in by a medical professional or institution? @ -No Did you speak to anyone other than the patient for history? @ -No Did you review nursing and triage notes? @ -Yes, and I agree, it is accurate with regards to the patient's symptoms. Were old charts reviewed? @ -Abdominal US from 12/10/22 revealing no acute findings. Differential Diagnosis? @ -Differential Chest Pain: Stable Angina, Unstable Angina, STEMI, NSTEMI Aortic Dissection, Pneumothorax, Musculoskeletal, Esophageal Spasm GERD, Cholecystitis, Pancreatitis, Zoster, this is not meant to be an all-inclusive list. EKG interpreted by me (3pts min.)? @ -EKG interpreted by me demonstrating the following: Sinus rhythm. Ventricular rate 84 beats per minute, ID interval 165 ms, QRS duration 87 ms, QTC 440 ms. X-rays interpreted by me (1pt min.)? @ -Chest x-ray obtained, my interpretation identifies no localized consolidations or infiltrates. CT interpreted by me (1pt min.)? @ -Computed tomography scan of the abdomen and pelvis obtained. My interpretation identifies no evidence of bowel thickening or free air. U/S interpreted by me (1pt. min.)? @ -Not obtained. What testing was considered but not performed? (CT, X-rays, U/S, labs)? Why? @ -Not obtained What meds were considered but not given? Why? @ -Not obtained Did you discuss the management of the patient with other professionals? @ -Yes, Dr. Garcia, who accepts the patient for admission. Did you reconcile home meds? @ -Yes Was smoking cessation discussed for >3mins.? @ -No Was critical care preformed (if so, how long)? @ -No Were there social determinants of health that impacted care today? How? (Homelessness, low income, unemployed, alcoholism, drug addiction, transportation, low edu. Level, literacy, decrease access to med. care, [facility], rehab)? @ -No Was there de-escalation of care discussed even if they declined? (Discuss DNR or withdrawal of care, Hospice)? @ -No What co-morbidities impacted this encounter? (DM, HTN, Smoking, COPD, CAD, Cancer, CVA, Hep., AIDS, mental health diagnosis, sleep apnea, morbid obesity)? @ -HTN, CAD Was patient admitted / discharged? @ -Admitted. Lab work obtained revealing elevated LFTs with initial negative initial troponin. Chest x-ray also reveals no acute findings. When compared with prior labs, patient has had elevated LFTs in the past, however they have since increased. Abdominal ultrasound last month revealed no acute findings related to the LFTs. However, he states that he has had weight loss over the last few months, and because the LFTs to have continued to increase, computed tomography scan of the abdomen and pelvis obtained. Computed tomography scan revealed no notable findings. He was given IV fluids, Zofran, and nitroglycerin. He reports improvement in chest pain with the nitroglycerin. In light of the patient's cardiac history, he was admitted to medicine for further management with cardiology consult. Serial troponins ordered. Hepatitis panel, heterophile, and EBV testing added due to the elevated LFTs. Undiagnosed new problem with uncertain prognosis? @ -None Drug Therapy requiring intensive monitoring for toxicity (Heparin, Nitro, I nsulin, Cardizem)? @ -None Were any procedures done? @ -None Diagnosis/symptom? @ -Chest pain Acute, or Chronic, or Acute on Chronic? @ -Acute Uncomplicated (without systemic symptoms) or Complicated (systemic symptoms)? @ -Complicated Side effects of treatment? @ -None Exacerbation, Progression, or Severe Exacerbation] @ -Not applicable Poses a threat to life or bodily function? @ -Yes This case was discussed in detail with the attending ED physician, Dr. Viveros. Presentation, findings, and treatment plan discussed in detail as well. (Damaris Stubbs) - Lab Data Lab Results 01/14/23 01/14/23 01/14/23 Range/Units 19:50 19:50 19:50 WBC 10.1 (3.8-10.6) k/uL RBC 4.22 L (4.30-5.90) m/uL Hgb 14.4 (13.0-17.5) gm/dL Hct 40.3 (39.0-53.0) % MCV 95.5 (80.0-100.0) fL MCH 34.0 (25.0-35.0) pg MCHC 35.6 (31.0-37.0) g/dL RDW 12.3 (11.5-15.5) % Plt Count 174 (150-450) k/uL MPV 8.5 Neutrophils % 77 % Lymphocytes % 15 % Monocytes % 6 % Eosinophils % 0 % Basophils % 0 % Neutrophils # 7.8 H (1.3-7.7) k/uL Lymphocytes # 1.5 (1.0-4.8) k/uL Monocytes # 0.6 (0-1.0) k/uL Eosinophils # 0.0 (0-0.7) k/uL Basophils # 0.0 (0-0.2) k/uL PT 11.6 (9.0-12.0) sec INR 1.1 (<1.2) APTT 25.9 (22.0-30.0) sec Sodium 131 L (137-145) mmol/L Potassium 3.7 (3.5-5.1) mmol/L Chloride 101 (98-107) mmol/L Carbon Dioxide 21 L (22-30) mmol/L Anion Gap 9 mmol/L BUN 23 H (9-20) mg/dL Creatinine 0.68 (0.66-1.25) mg/dL Est GFR (CKD-EPI)AfAm >90 (>60 ml/min/1.73 sqM) Est GFR (CKD-EPI)NonAf >90 (>60 ml/min/1.73 sqM) Glucose 108 H (74-99) mg/dL Calcium 8.4 (8.4-10.2) mg/dL Magnesium 2.1 (1.6-2.3) mg/dL Total Bilirubin 0.8 (0.2-1.3) mg/dL AST 78 H (17-59) U/L ALT 110 H (4-49) U/L Alkaline Phosphatase 229 H (38-126) U/L Troponin I (0.000-0.034) ng/mL Total Protein 6.1 L (6.3-8.2) g/dL Albumin 3.5 (3.5-5.0) g/dL Influenza Type A (PCR) (Not Detectd) Influenza Type B (PCR) (Not Detectd) RSV (PCR) (Not Detectd) SARS-CoV-2 (PCR) (Not Detectd) 01/14/23 01/14/23 Range/Units 19:50 19:50 WBC (3.8-10.6) k/uL RBC (4.30-5.90) m/uL Hgb (13.0-17.5) gm/dL Hct (39.0-53.0) % MCV (80.0-100.0) fL MCH (25.0-35.0) pg MCHC (31.0-37.0) g/dL RDW (11.5-15.5) % Plt Count (150-450) k/uL MPV Neutrophils % % Lymphocytes % % Monocytes % % Eosinophils % % Basophils % % Neutrophils # (1.3-7.7) k/uL Lymphocytes # (1.0-4.8) k/uL Monocytes # (0-1.0) k/uL Eosinophils # (0-0.7) k/uL Basophils # (0-0.2) k/uL PT (9.0-12.0) sec INR (<1.2) APTT (22.0-30.0) sec Sodium (137-145) mmol/L Potassium (3.5-5.1) mmol/L Chloride (98-107) mmol/L Carbon Dioxide (22-30) mmol/L Anion Gap mmol/L BUN (9-20) mg/dL Creatinine (0.66-1.25) mg/dL Est GFR (CKD-EPI)AfAm (>60 ml/min/1.73 sqM) Est GFR (CKD-EPI)NonAf (>60 ml/min/1.73 sqM) Glucose (74-99) mg/dL Calcium (8.4-10.2) mg/dL Magnesium (1.6-2.3) mg/dL Total Bilirubin (0.2-1.3) mg/dL AST (17-59) U/L ALT (4-49) U/L Alkaline Phosphatase (38-126) U/L Troponin I <0.012 (0.000-0.034) ng/mL Total Protein (6.3-8.2) g/dL Albumin (3.5-5.0) g/dL Influenza Type A (PCR) Not Detected (Not Detectd) Influenza Type B (PCR) Not Detected (Not Detectd) RSV (PCR) Not Detected (Not Detectd) SARS-CoV-2 (PCR) Not Detected (Not Detectd) Disposition <Tejal Dsouza - Last Filed: 01/14/23 18:34> <Damaris Stubbs - Last Filed: 01/14/23 23:33> Clinical Impression: Chest pain Disposition: ADMITTED IP TO THIS HOSP
[2023-01-14] MEDS ORDERED: SODIUM CHLORIDE 0.9% 1,000 ML IV STA (20:03)
[2023-01-14] MEDS ORDERED: NITROGLYCERIN SL TABS 0.4 MG TAB SUBLINGUAL STA (20:03)
[2023-01-14] MEDS ORDERED: ONDANSETRON 4 MG/2 ML VIAL IVP STA (20:03)
[2023-01-14 20:20] LABS: Basophils % (A) 0 %; Eosinophils % (A) 0 %; HCT 40.3 % (39.0-53.0); HGB 14.4 gm/dL (13.0-17.5); Lymphocytes # (A) 1.5 k/uL (1.0-4.8); Lymphocytes % (A) 15 %; MCHC 35.6 g/dL (31.0-37.0); MCV 95.5 fL (80.0-100.0); Mean Platelet Volume 8.5; Monocytes # (A) 0.6 k/uL (0-1.0); Monocytes % (A) 6 %; Neutrophils # (A) 7.8 k/uL (1.3-7.7); Neutrophils % (A) 77 %; Platelet Count 174 k/uL (150-450); RBC 4.22 m/uL (4.30-5.90); RDW 12.3 % (11.5-15.5); WBC 10.1 k/uL (3.8-10.6)
--- NOTE | 2023-01-14 20:22 | XR ---
EXAMINATION TYPE: XR chest 2V DATE OF EXAM: 01/14/2023 COMPARISON: 03/12/2022 INDICATION: Chest pain TECHNIQUE: Frontal and lateral views of the chest are obtained. FINDINGS: The heart size is normal. The pulmonary vasculature is normal. The lungs are clear. IMPRESSION: 1. No acute pulmonary process.
[2023-01-14 20:33] LABS: ALT 110 U/L (4-49); AST 78 U/L (17-59); African American GFR (CKD) >90 (>60 ml/min/1.73 sqM); Albumin 3.5 g/dL (3.5-5.0); Alkaline Phosphatase 229 U/L (38-126); Anion Gap 9 mmol/L; Blood Urea Nitrogen 23 mg/dL (9-20); Calcium 8.4 mg/dL (8.4-10.2); Carbon Dioxide 21 mmol/L (22-30); Chloride 101 mmol/L (98-107); Glucose 108 mg/dL (74-99); Magnesium 2.1 mg/dL (1.6-2.3); Non-African American GFR(CKD) >90 (>60 ml/min/1.73 sqM); Potassium 3.7 mmol/L (3.5-5.1); Sodium 131 mmol/L (137-145); Total Bilirubin 0.8 mg/dL (0.2-1.3); Total Protein 6.1 g/dL (6.3-8.2)
[2023-01-14 20:35] LABS: INR 1.1 (<1.2); Partial Thromboplastin Time 25.9 sec (22.0-30.0); Prothrombin Time 11.6 sec (9.0-12.0)
[2023-01-14] MEDS ORDERED: ONDANSETRON 4 MG/2 ML VIAL IVP PRN (21:21)
[2023-01-14] MEDS ORDERED: NALOXONE 0.4 MG/ML 1 ML VIAL IV PRN (21:21)
[2023-01-14] MEDS ORDERED: HYDROcodone/APAP 5-325MG 1 EACH TAB PO PRN (21:21)
[2023-01-14] MEDS ORDERED: ACETAMINOPHEN TAB 325 MG TAB PO PRN (21:21)
[2023-01-14] MEDS ORDERED: ALPRAZolam 0.5 MG TAB PO PRN (22:01)
[2023-01-14] MEDS ORDERED: METOCLOPRAMIDE 10 MG TAB PO PRN (22:01)
[2023-01-14] MEDS ORDERED: HYDROcodone/APAP 7.5-325MG 1 EACH TAB PO PRN (22:03)
[2023-01-14] MEDS ORDERED: MORPHINE SULFATE 4 MG/ML SYRINGE IVP PRN (22:03)
--- NOTE | 2023-01-14 22:14 | CT ---
EXAMINATION TYPE: CT abdomen pelvis w con DATE OF EXAM: 01/14/2023 COMPARISON: None INDICATION: elevated LFTs DLP: 1053.3 mGycm, Automated exposure control for dose reduction was used. CONTRAST: 100 mL of Isovue 300. Study performed without Oral Contrast TECHNIQUE: Axial images were obtained from above the diaphragm to the pubic rami in the axial plane a t 5 mm thick sections. Reconstructed images are reviewed on the computer in the coronal plane. FINDINGS: Limited CT sections are obtained the lung bases. The lung bases are clear. CT ABDOMEN: Liver: Normal Spleen: Normal Pancreas: Normal Adrenal glands: Right adrenal gland has a very low density area may be a small measuring 0.7 cm. Left adrenal gland appears within normal limits Gallbladder: Normal Kidneys: No masses are evident. No hydronephrosis is present. No cysts are present. There is a non obstructing 0.7 cm right inferior renal pelvic stone Aorta: Vascular calcification is within the aorta. Inferior vena cava: Normal. CT PELVIS: There are scattered diverticuli within the sigmoid colon. No adjacent inflammatory changes are eviden t. This study is lateral contrast limiting bowel evaluation. Appendix: Not identified. No inflammatory changes are evident Urinary bladder: Normal. Genitourinary structures: Prostate is mildly prominent. Osseous structures: No suspicious lytic or sclerotic lesions. IMPRESSIONS: 1. Nonobstructing inferior right renal pelvic stone. 2. Diverticulosis without acute diverticulitis
[2023-01-15 06:21] VITALS: RESP 16
[2023-01-15 08:25] VITALS: BP 134/82; PULSE 64; TEMP 98
[2023-01-15] MEDS ORDERED: PRASUGREL 10 MG TAB PO SCH (09:00)
[2023-01-15] MEDS ORDERED: METOPROLOL TARTRATE 50 MG TAB PO SCH (09:00)
[2023-01-15] MEDS ORDERED: lisinopriL 5 MG TAB PO SCH (09:00)
[2023-01-15] MEDS ORDERED: ATORVASTATIN 40 MG TAB PO SCH (09:00)
[2023-01-15] MEDS ORDERED: ESCITALOPRAM 20 MG TAB PO SCH (09:00)
[2023-01-15 09:03] LABS: Hepatitis A Antibody IgM Nonreactive (Nonreactive); Hepatitis B Core IgM Nonreactive (Nonreactive); Hepatitis B Surface Antigen Nonreactive (Nonreactive); Hepatitis C IgG Antibody Nonreactive (Nonreactive)
[2023-01-15] MEDS: BACLOFEN 10 MG TAB PO SCH ×2 (09:30→17:31)
[2023-01-15] MEDS: PANTOPRAZOLE 40 MG TABLET PO SCH ×2 (09:30→17:31)
[2023-01-15] MEDS ORDERED: SODIUM CHLORIDE 0.9% 1,000 ML IV SCH (13:30)
--- NOTE | 2023-01-15 16:59 | CA ---
Transthoracic Echo Report Name: Hank Moon Age: 62 Gender: M : 1960 Exam Date: 01/15/2023 13:52 Exam Location: [facility] Ht (in): 73 Wt (lb): 176 Ordering Physician: Manuel Baxter MD ([id number]) Attending/Referring Phys: Gregorio Weathers DO [employer] Fabric Machine Tender Humble Hernandez Procedure CPT: Indications: Chest Pain Cardiac Hx: Limited study with contrast. Technical Quality: Fair Contrast 1: [place] Total Dose (mL): 5 Contrast 2: Agitated Saline Total Dose (mL): 10 MEASUREMENTS (Male / Female) Normal Values 2D ECHO LV Diastolic Volume MOD BP 45.6 cm??? 67 - 155 / 56 - 104 cm??? LV Systolic Volume MOD BP 16.5 cm??? 22 - 58 / 19 - 49 cm??? LV Ejection Fraction MOD BP 63.9 % >= 55 % LV Diastolic Volume MOD 4C 65.9 cm??? LV Systolic Volume MOD 4C 18.3 cm??? LV Ejection Fraction MOD 4C 72.3 % LV Diastolic Length 4C 7.8 cm LV Systolic Length 4C 6.6 cm LV Diastolic Volume MOD 2C 28.0 cm??? LV Systolic Volume MOD 2C 14.1 cm??? LV Ejection Fraction MOD 2C 49.7 % LV Diastolic Length 2C 6.8 cm LV Systolic Length 2C 6.2 cm FINDINGS Left Ventricle Left ventricular ejection fraction is estimated at 55-60 %. Right Ventricle Right Atrium Left Atrium Mitral Valve Aortic Valve Tricuspid Valve Pulmonic Valve Pericardium Aorta CONCLUSIONS Left ventricle has normal size wall motion systolic function Previewed by: Dr. Manuel Baxter MD (Electronically Signed) Final Date: 15 Jan 2023 16:58
[2023-01-15 18:24] LABS: EBV-EA (IgG) <0.2 AI; EBV-EBNA(IgG) >8.0 AI; EBV-VCA (IgG) >8.0 AI; EBV-VCA (IgM) <0.2 AI
--- NOTE | 2023-01-15 21:51 | CONS ---
CONSULTATION CHIEF COMPLAINT: Chest pain. HISTORY OF PRESENT ILLNESS: Hank is a 62-year-old gentleman with history of coronary artery disease, status post cardiac catheterization and angioplasty of mid RCA in October of 2022, who presented to hospital with chest discomfort. It is sharp, left-sided, seems musculoskeletal. He recently had a fall and has ecchymosis in that area, and the pain is reproducible. He had an echocardiogram at last visit that showed normal LV function. He has had 3 sets of cardiac enzymes that are all within normal limits. At the time of my evaluation, he appears comfortable at rest and is free of symptoms. PAST MEDICAL HISTORY: Significant for coronary artery disease, status post angioplasty of the right coronary artery; hypertension; and dyslipidemia. CURRENT MEDICATIONS: Include 1. Aspirin. 2. Lipitor 40 mg daily. 3. Lexapro 20 daily. 4. Lopressor 50 b.i.d. 5. Protonix. 6. Effient. 7. Zestril. 8. Xanax. 9. [place]. ALLERGIES: There are no known drug allergies. FAMILY HISTORY: Negative for premature coronary artery disease. SOCIAL HISTORY: Negative for smoking, EtOH abuse, or drug abuse. REVIEW OF SYSTEMS: HEENT: Unremarkable. CARDIAC: As described above. RESPIRATORY: As described above. GI: Negative. GENITOURINARY: Negative. ALLERGY/IMMUNOLOGY: Negative. SKIN: Negative. MUSCULOSKELETAL: Significant for arthritis. PSYCHOSOCIAL: Negative. DERM: Negative. CONSTITUTIONAL: Negative. ONCOLOGIC: Negative. CAMPAIGN MANAGEMENT SENIOR MANAGER: Negative. PHYSICAL EXAMINATION: GENERAL: Comfortable at rest. VITAL SIGNS: Stable. NECK: There is no jugular venous distention. Carotid upstroke is normal. There is no bruit. CHEST: Reveals ecchymosis over the lateral side of the chest with reproducible pain. HEART: Reveals first and second heart sounds. No gallop. EXTREMITIES: Did not reveal edema. ABDOMEN: Soft and nontender. ASSESSMENT: 1. Atypical chest pain. 2. Coronary artery disease, status post angioplasty. PLAN: The patient's chest discomfort is musculoskeletal, probably related to the recent fall. No further workup at this time. MMODL / IJN: [id number] /
--- NOTE | 2023-01-16 10:24 | P.HPIM ---
History of Present Illness H&P Date: 01/15/23 This is a 62-year-old male who presented to the emergency department with left chest wall pain and reports that fallen and struck his chest on the left side. Patient did have an episode of nausea vomiting 2 at home prior to coming to the ER and was concerned as patient recently underwent cardiac catheterization with stenting in October and had these similar symptoms. Patient was seen and evalua francesca by cardiology recommend monitoring overnight and having a 2-D echo done. Chest x-ray showed no acute pulmonary process, troponins were negative. Abdomen CT pelvis showed nonobstructing inferior right renal pelvic stone and diverticulosis without any acute diverticulitis. Patient was admitted under observation for cardiology evaluation. Review Of Systems: Constitutional: No fever, no chills, no night sweats. No weight change. No weakness, fatigue or lethargy. No daytime sleepiness. EENT: No headache. No blurred vision or double vision, no loss of vision. No loss of Hearing, no ringing in the ears, no dizziness. No nasal drainage or congestion. No epistaxis. No sore throat. Lungs: No shortness of breath, cough, no sputum production. No wheezing. Cardiovascular: No chest pain, no lower extremity edema. No palpitations. No paroxysmal nocturnal dyspnea. No orthopnea. No lightheadedness or dizziness. No syncopal episodes. Abdominal: No abdominal pain. Reports intermittent nausea, reports episode of vomiting 2. No diarrhea. No constipation. No bloody or tarry stools.. No loss of appetite. Genitourinary: No dysuria, increased frequency, urgency. No urinary retention. Musculoskeletal: No myalgias. No muscle weakness, no gait dysfunction, no frequent falls. No back pain. No neck pain. Integumentary: No wounds, no lesions. No rash or pruritus. No unusual bruising. No change in hair or nails. Neurologic: No aphasia. No facial droop. No change in mentation. No head injury. No headache. No paralysis. No paresthesia. Psychiatric: No depression. No anxiety. No mood swings. Endocrine: No abnormal blood sugars. No weight change. No excessive sweating or thirst. No cold intolerance. PHYSICAL EXAMINATION: GENERAL: The patient is alert and oriented x4, Well developed, well nourished. Thin built HEENT: Pupils are round and equally reacting to light. EOMI. no scleral icterus. No conjunctival pallor. Normocephalic, atraumatic. No pharyngeal erythema. No thyromegaly. CARDIOVASCULAR: S1 and S2 muffled PULMONARY: diminished breath sounds bilaterally with no wheezing or rhonchi noted. ABDOMEN: soft. Nontender on exam. obese. non-distended, normoactive bowel sounds. No palpable organomegaly. MUSCULOSKELETAL: No joint swelling or deformity. EXTREMITIES: No cyanosis, clubbing, or pedal edema. NEUROLOGICAL: Gross neurological examination did not reveal any focal deficits. Diffuse weakness SKIN: No rashes. Assessment: Chest pain, ruled out ACS History of coronary artery disease with previous stenting in October 2022 Hypertension GERD Anxiety Continued ongoing nicotine dependence GI prophylaxis DVT prophylaxis Full code Plan: Recommend to continue with current medications and management with cardiology following. Cardiology recommending monitoring overnight and awaiting 2-D echo Discuss further with cardiology if echo is performed patient is okay for discharge and will follow-up with cardiology in the office All medications reviewed and resumed Awaiting cardiology clearance for possible discharge later today The impression and plan of care has been dictated by Kathy Morgan, nurse practitioner as directed. Dr. Joao MD I have performed a history and examination and MDM of this patient, discussed the same with the dictator, and agree with the dictator's assessment and plan as written ,documented as a scribe. Based on total visit time, I have performed more than 50% of the visit. Any additional findings or plans will be noted. Past Medical History Past Medical History: Coronary Artery Disease (CAD), GERD/Reflux, Hypertension, Myocardial Infarction (CA) Additional Past Medical History / Comment(s): headaches, borderline anemic, "low iron", "low WBC's", past acid refux, Last Myocardial Infarction Date:: History of Any Multi-Drug Resistant Organisms: None Reported Past Surgical History: Heart Catheterization With Stent, Hernia Repair, Orthopedic Surgery Additional Past Surgical History / Comment(s): beau knee arthroscopy, beau knee surgery as teen, Past Anesthesia/Blood Transfusion Reactions: No Reported Reaction Date of Last Stent Placement:: 11/12/2022 Past Psychological History: Anxiety Smoking Status: Current every day smoker Past Alcohol Use History: None Reported Additional Past Alcohol Use History / Comment(s): occ smokes cigars Past Drug Use History: None Reported - Past Family History Father Family Medical History: Cancer 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 - 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 Driving History Currently uses [employer] for employment (including self-employed).: No Medications and Allergies Home Medications Medication Instructions Recorded Confirmed Type ALPRAZolam [Xanax] 0.5 mg PO BID PRN 04/16/19 01/14/23 History Baclofen [Lioresal] 10 mg PO TID 11/12/22 01/14/23 History Escitalopram [Lexapro] 20 mg PO DAILY 11/12/22 01/14/23 History Metoclopramide [Reglan] 10 mg PO Q6H PRN #20 tab 11/12/22 01/14/23 Rx Aspirin 81 mg PO DAILY tab 11/14/22 01/14/23 Rx Atorvastatin [Lipitor] 40 mg PO DAILY #90 tab 11/14/22 01/14/23 Rx Metoprolol Tartrate [Lopressor] 50 mg PO BID #180 tab 11/14/22 01/14/23 Rx Prasugrel [Effient] 10 mg PO DAILY #90 tab 11/14/22 01/14/23 Rx HYDROcodone/APAP 7.5-325MG [[place] 1 tab PO Q6HR PRN 01/14/23 01/14/23 History 7.5-325] Pantoprazole Sodium [Protonix] 40 mg PO AC-BID 01/14/23 01/14/23 History lisinopriL [Zestril] 5 mg PO BID 01/14/23 01/14/23 History Acetaminophen Tab [Tylenol] 650 mg PO Q6HR PRN tab 01/15/23 Rx Allergies Allergy/AdvReac Type Severity Reaction Status Date / Time No Known Allergies Allergy Verified 01/14/23 21:20 Physical Exam Vitals: Vital Signs Temp Pulse Pulse Resp BP BP Pulse Ox 01/15/23 07:55 98.0 F 64 16 134/82 99 01/15/23 06:18 76 16 94/57 97 01/15/23 04:23 66 15 86/54 94 L 01/15/23 00:49 78 12 144/97 97 01/14/23 19:50 70 15 157/99 17 L 01/14/23 18:47 97.9 F 81 20 146/96 100 Intake and Output 01/14/23 01/15/2301/15/23 22:59 06:59 14:59 Other: Weight 79.832 kg 79.832 kg Results CBC & Chem 7: 01/14/23 19:50 01/14/23 19:50 Labs: Abnormal Lab Results - Last 24 Hours (Table) 01/14/23 01/14/23 Range/Units 19:50 19:50 RBC 4.22 L (4.30-5.90) m/uL Neutrophils # 7.8 H (1.3-7.7) k/uL Sodium 131 L (137-145) mmol/L Carbon Dioxide 21 L (22-30) mmol/L BUN 23 H (9-20) mg/dL Glucose 108 H (74-99) mg/dL AST 78 H (17-59) U/L ALT 110 H (4-49) U/L Alkaline Phosphatase 229 H (38-126) U/L Total Protein 6.1 L (6.3-8.2) g/dL Thrombosis Risk Factor Assmnt - DVT/VTE Prophylaxis DVT/VTE Prophylaxis: Mechanical Prophylaxis ordered - Choose All That Apply Any of the Below Risk Factors Present?: Yes Each Risk Factor Represents 2 Points: Age 61-74 years Other congenital or acquired thrombophilia - If yes, enter type in comment: No Thrombosis Risk Factor Assessment Total Risk Factor Score: 2 Thrombosis Risk Factor Assessment Level: Low Risk Assessment and Plan Time with Patient: Greater than 30
--- NOTE | 2023-01-18 09:36 | P.DS ---
Providers Date of admission: 01/14/23 21:22 Expected date of discharge: 01/15/23 Attending physician: Semaj Garcia MD Consults: 01/14/23 21:21 Consult Physician Urgent Consulting Provider: Pola Robles Consult Reason/Comments: Chest pain Do you want consulting provider notified?: Yes, Notify in am Primary care physician: Filipe Godinez [facility] Course: Final diagnosis Chest pain, ruled out ACS History of coronary artery disease with previous stenting in October 2022 Hypertension GERD Anxiety Continued ongoing nicotine dependence GI prophylaxis DVT prophylaxis Full code Discharge disposition Patient is being discharged in a stable condition with guarded prognosis to home. Patient will follow-up with Dr. Godinez in the outpatient setting upon discharge. Patient is to follow-up with cardiology outpatient as scheduled. Total time taken is greater than 35 minutes. Hospital course This is a 62-year-old male who was recently admitted with chest pain most likely musculoskeletal as patient had a recent fall and struck his left chest resulting in a contusion. Patient was concerned because he had a couple episodes of vomiting and presented like this previous admission requiring cardiac catheterization and stenting. Patient was seen and evaluated by cardiology underwent 2-D echo with no obvious wall motion abnormalities and patient had been cleared by cardiology. Please refer to cardiology notes for further HPI. Patient reports to feeling well and would like to go home. Currently no reports of chest pain, shortness of breath, or palpitations. Patient is afebrile. No reports of nausea or vomiting and patient is tolerating diet. Patient will be discharged home today. Physical exam: Gen: This is a 62-year-old male who is awake, alert and oriented 3, thin built, well developed HEENT: Head is atraumatic, normocephalic. Pupils equal, round. Sclerae is anicteric. NECK: Supple. No JVD. No lymphadenopathy. No thyromegaly. LUNGS: Clear to auscultation. No wheezes or rhonchi. No intercostal retractions. HEART: Regular rate and rhythm. No murmur. ABDOMEN: Soft. Bowel sounds are present. No masses. No tenderness. EXTREMITIES: No pedal edema. No calf tenderness. NEUROLOGICAL: Patient is awake, alert and oriented x3. Cranial nerves 2 through 12 are grossly intact. Please refer to medication reconciliation sheet for a list of medications. The impression and plan of care has been dictated by Kathy Morgan, Nurse Practitioner as directed. MD Zeinab I have performed a history and examination and MDM of this patient, discussed the same with the dictator, and agree with the dictator's assessment and plan as written ,documented as a scribe. Based on total visit time, I have performed more than 50% of the visit. Patient Condition at Discharge: Fair Plan - Discharge Summary New Discharge Prescriptions: New Acetaminophen Tab [Tylenol] 650 mg PO Q6HR PRN tab PRN Reason: Mild Pain Or Fever > 100.5 Continue ALPRAZolam [Xanax] 0.5 mg PO BID PRN PRN Reason: Anxiety Metoclopramide [Reglan] 10 mg PO Q6H PRN #20 tab PRN Reason: Nausea And Vomiting Aspirin 81 mg PO DAILY tab Prasugrel [Effient] 10 mg PO DAILY #90 tab HYDROcodone/APAP 7.5-325MG [[place] 7.5-325] 1 tab PO Q6HR PRN PRN Reason: Pain lisinopriL [Zestril] 5 mg PO BID Escitalopram [Lexapro] 20 mg PO DAILY Baclofen [Lioresal] 10 mg PO TID Atorvastatin [Lipitor] 40 mg PO DAILY #90 tab Metoprolol Tartrate [Lopressor] 50 mg PO BID #180 tab Pantoprazole Sodium [Protonix] 40 mg PO AC-BID Discharge Medication List ALPRAZolam [Xanax] 0.5 mg PO BID PRN 04/16/19 [History] Baclofen [Lioresal] 10 mg PO TID 11/12/22 [History] Escitalopram [Lexapro] 20 mg PO DAILY 11/12/22 [History] Metoclopramide [Reglan] 10 mg PO Q6H PRN #20 tab 11/12/22 [Rx] Aspirin 81 mg PO DAILY tab 11/14/22 [Rx] Atorvastatin [Lipitor] 40 mg PO DAILY #90 tab 11/14/22 [Rx] Metoprolol Tartrate [Lopressor] 50 mg PO BID #180 tab 11/14/22 [Rx] Prasugrel [Effient] 10 mg PO DAILY #90 tab 11/14/22 [Rx] HYDROcodone/APAP 7.5-325MG [[place] 7.5-325] 1 tab PO Q6HR PRN 01/14/23 [History] Pantoprazole Sodium [Protonix] 40 mg PO AC-BID 01/14/23 [History] lisinopriL [Zestril] 5 mg PO BID 01/14/23 [History] Acetaminophen Tab [Tylenol] 650 mg PO Q6HR PRN tab 01/15/23 [Rx] Follow up Appointment(s)/Referral(s): Filipe Godinez MD [Primary Care Provider] - 1-2 days (please call for an appointment tomorrow! please also follow up with cardiology ) Patient Instructions/Handouts: Chest Pain (GEN) Activity/Diet/Wound Care/Special Instructions: Activity Limited until follow-up Follow-up with primary care provider on discharge Follow-up with cardiology outpatient in 1-2 weeks Continue taking medications as prescribed Discharge Disposition: HOME SELF-CARE
== END 2023-01-15 17:41 | disposition home or self-care (01) ==
LOC: EC 18:24 → INTOOBSV 21:22 → 6NMEDSUR 21:22
PROVIDERS: ADMIT Internal Medicine; ATTEND Internal Medicine
DX: R07.89 Other chest pain (principal); R11.2 Nausea with vomiting, unspecified; R53.1 Weakness; I25.10 Atherosclerotic heart disease of native coronary artery without angina pectoris; K21.9 Gastro-esophageal reflux disease without esophagitis; S20.212A Contusion of left front wall of thorax, initial encounter; W19.XXXA Unspecified fall, initial encounter; I25.2 Old myocardial infarction; I10 Essential (primary) hypertension; K57.90 Diverticulosis of intestine, part unspecified, without perforation or abscess without bleeding; R79.89 Other specified abnormal findings of blood chemistry; N20.0 Calculus of kidney; E78.5 Hyperlipidemia, unspecified; G89.29 Other chronic pain; M54.9 Dorsalgia, unspecified; M19.90 Unspecified osteoarthritis, unspecified site; F41.9 Anxiety disorder, unspecified; F17.200 Nicotine dependence, unspecified, uncomplicated; Z20.822 Contact with and (suspected) exposure to COVID-19; Z79.899 Other long term (current) drug therapy; Z79.82 Long term (current) use of aspirin; Z95.5 Presence of coronary angioplasty implant and graft; Z79.02 Long term (current) use of antithrombotics/antiplatelets; Z98.890 Other specified postprocedural states; Z80.9 Family history of malignant neoplasm, unspecified
CPT/HCPCS: 96374; 99285; 36415; 93005; 93308; 86665 ×2; 80053; 80074; 86663; 83735; 84484 ×2; 85025; 85610; 85730; 86308; 86664; 87636; 71046; 74177; G0378; J2405; Q9950; Q9967

== ENCOUNTER → 2023-02-07 | Outpatient (CLI) | payer MEDICAID ==
--- NOTE | 2023-02-08 09:30 | MR ---
EXAMINATION TYPE: MR abdomen wo/w con DATE OF EXAM: 02/07/2023 COMPARISON: CT abdomen pelvis dated 01/14/2023 HISTORY: Pt has high liver enzymes with vomiting CONTRAST: Standard multiplanar, multisequence MRI departmental protocol images were obtained without contrast a nd with 8.5ml mL intravenous Gadavist gadolinium contrast. FINDINGS: Liver: Mild heterogenous enhancement throughout the liver which is nonspecific. There is a mild perip heral micronodular appearance suggestive of the cirrhotic liver disease. Correlate with hepatic funct ion testing. No discrete hepatic mass. No evidence for intra or extrahepatic biliary ductal dilatatio n. The gallbladder is free of cholelithiasis or wall thickening. Pancreas: No evidence for inflammatory change or mass. Pancreatic duct is not dilated. Spleen: Within normal limits Adrenal glands: Small adenoma right adrenal gland measuring 6.6 mm. Left adrenal gland is unremarkabl e. Kidneys: Kidneys are symmetric in size. Small renal cortical cysts are noted bilaterally. No solid re nal masses seen. No hydronephrosis. Abdominal aorta: No evidence for aneurysm. Branch vessels appear to be patent. No retroperitoneal toney nopathy or mass. IMPRESSION: 1. Correlate for underlying cirrhotic liver disease. 2. Right adrenal adenoma. 3. Renal cortical cysts.
== END | disposition home or self-care (01) ==
LOC: RADMRIMAIN 19:42
PROVIDERS: ATTEND Internal Medicine Geriatric Medicine
DX: D35.01 Benign neoplasm of right adrenal gland (principal); N28.1 Cyst of kidney, acquired; K86.89 Other specified diseases of pancreas
CPT/HCPCS: 74183; A9585

== ENCOUNTER → 2023-04-02 | Outpatient (CLI) | payer MEDICARE ==
[2023-04-02 09:26] LABS: INR 1.1 (<1.2); Partial Thromboplastin Time 27.4 sec (22.0-30.0); Prothrombin Time 11.2 sec (9.0-12.0)
--- NOTE | 2023-04-02 10:13 | XR ---
EXAMINATION TYPE: XR chest 2V DATE OF EXAM: 04/02/2023 COMPARISON: 01/14/2023 TECHNIQUE: PA and lateral views submitted. HISTORY: Preop FINDINGS: The lungs are clear and there is no pneumothorax, pleural effusion, or focal pneumonia. Heart size normal and no overt failure. Osseous structures demonstrate hypertrophic and degenerative changes of the spine. Chronic left clavicular fracture. IMPRESSION: 1. No acute process.
[2023-04-02 14:57] LABS: Basophils # (A) 0.02 X 10*3/uL (0.00-0.10); Basophils % (A) 0.3 %; Eosinophils # (A) 0.04 X 10*3/uL (0.04-0.35); Eosinophils % (A) 0.5 %; HCT 42.2 % (39.6-50.0); HGB 14.2 d/dL (13.0-17.0); Lymphocytes # (A) 1.57 X 10*3/uL (0.90-5.00); Lymphocytes % (A) 21.4 %; MCH 33.4 pg (27.0-32.0); MCHC 33.6 d/dL (32.0-37.0); MCV 99.3 FL (80.0-97.0); Mean Platelet Volume 11.5 FL (9.5-12.2); Monocytes # (A) 0.78 X 10*3/uL (0.20-1.00); Monocytes % (A) 10.6 %; NRBC Per 100 WBC 0 X 10*3/uL (0.00-0.01); Neutrophils % (A) 66.9 %; Platelet Count 142 X 10*3/uL (140-440); RBC 4.25 X 10*6/uL (4.40-5.60); RDW 13.2 % (11.5-14.5); WBC 7.33 X 10*3/uL (4.50-10.00)
[2023-04-02 15:16] LABS: Appearance,Urine Clear (Clear); Bilirubin,Urine Negative (Negative); Blood,Urine Moderate (Negative); Color,Urine Yellow (Yellow); Ketones,Urine Negative (Negative); Nitrite,Urine Negative (Negative); PH, Urine 6.5; Specific Gravity,Urine 1.013 (1.001-1.030); Urobilinogen,Urine 0.2 E.U./DL
[2023-04-02 15:58] LABS: Bacteria,Urine None Seen (None Seen)
[2023-04-02 16:16] LABS: ALT 196 U/L (10-49); AST 163 U/L (14-35); Albumin 3.7 d/dL (3.8-4.9); Albumin/Globulin Ratio 1.42 Ratio (1.60-3.17); Alkaline Phosphatase 389 U/L (41-126); BUN/Creat Ratio 25.25 Ratio (12.00-20.00); Blood Urea Nitrogen 20.2 mg/dL (9.0-27.0); Calcium 8.9 mg/dL (8.7-10.3); Carbon Dioxide 25.8 mmol/L (21.6-31.8); Chloride 101 mmol/L (96-109); Globulin 2.6 d/dL (1.6-3.3); Glucose 100 mg/dL (70-110); Potassium 4.6 mmol/L (3.5-5.5); Sodium 135 mmol/L (135-145); Total Bilirubin 0.5 mg/dL (0.3-1.2); Total Protein 6.3 d/dL (6.2-8.2)
== END | disposition home or self-care (01) ==
LOC: LABPAT 08:25
PROVIDERS: ATTEND Orthopaedic Surgery Orthopaedic Surgery of the Spine
DX: Z01.818 Encounter for other preprocedural examination (principal); M48.00 Spinal stenosis, site unspecified; M54.10 Radiculopathy, site unspecified; I44.0 Atrioventricular block, first degree
CPT/HCPCS: 71046; 80053; 81001; 85025; 85610; 85730; 93005

== ENCOUNTER → 2023-04-04 | Outpatient (CLI) | payer MEDICARE | END | disposition home or self-care (01) | LOC: LABWHC1 16:38 | PROVIDERS: ATTEND Orthopaedic Surgery Orthopaedic Surgery of the Spine | DX: Z53.9 Procedure and treatment not carried out, unspecified reason (principal) ==

== ENCOUNTER → 2023-04-05 | Outpatient (CLI) | payer MEDICARE | END | disposition home or self-care (01) | LOC: LABWHC1 09:01 | PROVIDERS: ATTEND Orthopaedic Surgery Orthopaedic Surgery of the Spine | DX: Z01.812 Encounter for preprocedural laboratory examination (principal) | CPT/HCPCS: 87070 ==

== ENCOUNTER 2023-04-09 05:46 | Day surgery (SDC) | payer MEDICARE ==
[~2023-04-09 05:46] MED LIST changes: +DEXAMETHASONE SOD PHOSPHATE 4 MG/ML 1 ML VIAL IV ONE; -LACTATED RINGERS 1,000 ML IV SCH; +ONDANSETRON 4 MG/2 ML VIAL IVP ONE; +ceFAZolin 1,000 MG in SODIUM CHLORIDE 0.9% IRRIGATIO 1,000 ML IRRIGATION PRN
[2023-04-09] MEDS: LACTATED RINGERS 1,000 ML IV SCH (06:41)
[2023-04-09] MEDS ORDERED: HYDROmorphone 0.5 MG/0.5 ML SYRINGE IVP PRN (07:00)
[2023-04-09] MEDS ORDERED: fentaNYL (PF) 50 MCG/ML 2 ML AMP ONE (07:30)
[2023-04-09] MEDS ORDERED: SUCCINYLCHOLINE CHLORIDE 200 MG/10 ML VIAL IV ONE (07:30)
[2023-04-09] MEDS ORDERED: SODIUM CHLORIDE 0.9% 100 ML BAG ONE (07:30)
[2023-04-09] MEDS ORDERED: PHENYLEPHRINE-0.9% NACL SYG 1,000 MCG/10 ML SYRINGE ONE (07:30)
[2023-04-09] MEDS ORDERED: PROPOFOL 10 MG/ML 20 ML VIAL IV ONE (07:30)
[2023-04-09] MEDS ORDERED: ALBUMIN HUMAN 5% (12.5gm) 250 ML BOTTLE IVPB ONE (07:30)
[2023-04-09] MEDS ORDERED: KETAMINE 10 MG/ML 20 ML VIAL ONE (07:30)
[2023-04-09] MEDS ORDERED: NEOSTIGMINE 1 MG/ML 10 ML VIAL ONE (07:30)
[2023-04-09] MEDS ORDERED: MIDAZOLAM 2 MG/2 ML VIAL ONE (07:30)
[2023-04-09] MEDS ORDERED: ePHEDrine 50 MG/ML 1 ML VIAL ONE (07:30)
[2023-04-09] MEDS ORDERED: ROCURONIUM 10 MG/ML (5 ML VIAL) IV ONE (07:30)
[2023-04-09] MEDS ORDERED: GLYCOPYRROLATE 0.2 MG/ML 2 ML VIAL ONE (07:30)
[2023-04-09] MEDS ORDERED: LACTATED RINGERS 1,000 ML IV ONE (09:33)
[2023-04-09] MEDS ORDERED: ceFAZolin 1,000 MG in SODIUM CHLORIDE 0.9% 1,000 ML IRRIGATION ONE (10:39)
--- NOTE | 2023-04-09 11:37 | XR ---
EXAM TYPE: LUMBAR SPINE X RAY SERIES COMPARISON: NONE HISTORY: Intraoperative images TECHNIQUE: 4 limited resolution intraoperative views are submitted. FINDINGS: There is limited resolution images. There is apparent postsurgical change involving the lower lumbar spine. IMPRESSION: 1. See above.
[2023-04-09] MEDS ORDERED: BENZOCAINE/MENTHOL LOZENG 1 EACH LOZENGE MUCOUS MEM PRN (11:42)
[2023-04-09] MEDS ORDERED: CYCLOBENZAPRINE 10 MG TAB PO PRN (11:43)
[2023-04-09] MEDS ORDERED: SENNOSIDES-DOCUSATE SODIUM 1 EACH TAB PO PRN (11:43)
[2023-04-09] MEDS ORDERED: ONDANSETRON 4 MG/2 ML VIAL IVP PRN (11:43)
[2023-04-09] MEDS ORDERED: ALPRAZolam 0.5 MG TAB PO PRN (11:45)
[2023-04-09] MEDS ORDERED: ACETAMINOPHEN TAB 325 MG TAB PO PRN (11:45)
[2023-04-09] MEDS ORDERED: traMADol 50 MG TAB PO PRN (11:45)
[2023-04-09] MEDS ORDERED: METOCLOPRAMIDE 10 MG TAB PO PRN (11:45)
[2023-04-09] MEDS ORDERED: PANTOPRAZOLE 40 MG TABLET PO PRN (11:45)
--- NOTE | 2023-04-09 11:51 | P.OP ---
Date of Procedure: 04/09/23 Preoperative Diagnosis: Severe spinal stenosis L4 5 L5-S1, spinal listhesis L4 5, facet cyst L4 5, degenerative disc disease L4 5 L5-S1, lower extremity radiculopathy, low back pain, facet arthrosis Postoperative Diagnosis: Same Anesthesia: GETA Pathology: none sent Condition: stable Disposition: PACU Description of Procedure: DESCRIPTION OF PROCEDURE(S): BRIEF OPERATIVE NOTE Preoperative Diagnosis: Severe spinal stenosis L4 5 L5-S1, spinal listhesis L4 5, facet cyst L4 5, degenerative disc disease L4 5 L5-S1, lower extremity radiculopathy, low back pain, facet arthrosis Postoperative Diagnosis: Same Procedure: Laminectomy and decompression L4 5 L5-S1 with wide bilateral foraminotomy Computer CT navigation aided Minimally invasive Posterior lateral decompression and facet fusion L4 5 L5-S1 Minimally invasive Transforaminal lumbar interbody fusion for a 360 fusion L4 5 L5-S1 Discectomy for decompression L4 5 L5-S1 Placement of interbody graft L4 5 L5-S1 Use of computer navigation for fusion Local autogenous bone grafting Aspiration of bone marrow from the vertebral body pedicle L4 on the right Use of bone graft extenders Surgeon: Dr. Weathers Back Tender Insulation Board: Larry WHIPPLE who is present throughout the entire the case persistence during positioning, dissection, exposure, visualization, and all crucial elements of the case as well as closure. Anesthesia: General anesthesia per Dr. Manzanares Estimated blood loss: Approximately 500 mL Complications: None apparent Components implanted: K2M minimally invasive Spring pedicle screw system withscrews measuring 6.5 mm in diameter to rods one Atwood interbody cage and 1 expandable Mirus cage with 10 mL of osteo amp bio4 bone graft substitute and 30 mL of the BX bone fibers to supplement the local autogenous bone graft and bone marrow aspirate Disposition: To recovery room in good stable condition. OPERATIVE INDICATIONS The patient has had severe issues at their lower extremity in her lower back over the past several years with significant worsening over the past several months. Over the past few months the patient had pain at their back and their lower extremities. The patient is having severe radicular symptoms at their lower extremity with weakness. The patient is having significant pain in their back. They are unable to obtain any comfort. We did aggressive conservative treatment with medications therapy and interventional pain management however thery were not having any relief. The patient also showed evidence of a listhesis with some dynamic instability. The patient's imaging showed severe stenosis and spondylosis with degenerative change at L4 5 and L5-S1 which really well with his low back and lower extremity symptoms. The patient has been through conservative treatment. We discussed various treatment options including surgery, and the patient wishes to proceed with surgery We discussed the risk, patient's alternatives and benefits of surgery including but not limited to, risk of bleeding risk of infection, risk of need for further surgery, risk of decreased, loss of motion, muscle function, malunion nonunion, hardware failure, nerve damage, paralysis, heart attack, blindness and . They understood issues with the current pandemic and the possibility of exposure. OPERATIVE SUMMARY After discussing all the risks, patient alternatives and benefits at length, the patient elected to proceed with surgical intervention, signed informed consent, and presented for their procedure. The patient was seen and examined in the preoperative holding area and the surgical site was marked. The patient was given antibiotics and brought to the operating room. The patient was sedated and intubated by anesthesia in standard fashion. The patient was positioned on to the operating room table in a prone position on the appropriate frame which was well-padded and well molded. We were careful to pad any bony prominences and pressure points. We were careful to maintain the patient's cervical spine and good neutral alignment and position throughout. The patient was prepped and draped in a normal standard fashion. An appropriate timeout and keystone protocol performed. We were able to proceed with the surgery. The local wound area was infiltrated with local anesthetic. Over the right iliac crest I was able to make small stab incisions and establish a guidepin screw fixation to the iliac crest 2. I was able place the computer referencing device over the guidepins to establish an appropriate reference point for the Ziem CT navigation. We then were able to place patient in an a ppropriate drape and do a navigation spin for visualization and 3-D reconstruction of the lumbar spine. I was able utilize C-arm guidance and navigation to establish appropriate position over the pedicles bilaterally at the appropriate levels at L4-L5 and S1 bilaterally. With the appropriate levels confirmed was able to make small incisions over the appropriate pedicle sites bilaterally. Utilizing the computer navigation device I was able to establish bony landmarks at the right iliac crest for a bony reference point for the navigation device. I was able to establish a Jamshidi needle over the lateral aspect of the pedicle and advanced the trocar into the pedicle being careful not to breech superiorly inferiorly medially or laterally using computer navigation device. Position was confirmed regularly with AP and lateral images on C-arm and with the computer navigation device at the appropriate levels bilaterally. I was able to establish the trocar into the pedicle appropriately into the posterior aspect of the vertebral body bilaterally at the appropriate levels at L4-L5 and S1 bilaterally. This was done at each of the pedicle positions and each of the vertebrae. At the superior vertebrae of L4 on the right I was able to take approximately 25 mL of bone aspiration for use later in the case to supplement the allograft and autograft bone. I was able place the guidewire i nto the trocar and into the vertebral body appropriately under C-arm guidance. Dissection was taken down over the wire to the appropriate starting position for the screw placed. The appropriate length screw was chosen, threaded over the guidewire and screwed appropriately into the pedicle and vertebral body under C- arm guidance in excellent alignment and position with good bony purchase. This is done at each of the screw sites at the appropriate levels at L4-L5 and S1.. With the screws intact I extended the incision to connect the screw hole sites on the most symptomatic side on the left. I dissected down to establish access over the pars and lamina to the base of the spinous process. I was able to expose the facet joint. The capsule the facet was taken down and showed some facet arthrosis at the joint. I was able to use a combination of curettes and Kerrison rongeurs and a high-speed drill to take down the facet joint and do a facetectomy. I was able get excellent foraminal decompression and central decompression with undermining across midline to perform a laminectomy centrally and contralaterally. I was able get good central decompression. The ligamentum flavum was taken down to further decompress centrally and at bilateral neural foramen. There was severe stenosis at each level particularly at L4 5 and there is evidence of facet cyst which was removed at L4 5 as well. This provided excellent posterior decompression. I was able to expose the disc space and visualize the traversing nerve root. Note was made of some disc protrusion and disc herniation that was abutting the traversing nerve root at the level causing further compression of the nerve root. I was able to establish a annulotomy at the appropriate level first at L4 5 and then at L5-S1 protecting soft tissue and neural structures. Note was made of some disc desiccation at the disc. I performed a complete discectomy with accommodation of curettes and rasps and scrapers. I was able get good endplate preparation at the disc space. I sized for the appropriate size interbody spacer protecting the soft tissue and neural structures. The wound was copiously irrigated and suctioned dry. There is no evidence of any dural tear or leak. I was able to pack the disc space with local autogenous bone graft as well as a small amount of bone graft which was also placed into the interbody cage itself. Protecting the soft tissue structures and neural structures I was able place the interbody cage in good alignment and good position with good fit and fill at the interbody space. At L4 5 and placed in the expandable cage and at L5 S1 I placed a non-expandable cage. Position was confirmed with C-arm guidance. Good hemostasis maintained. There is no evidence of any dural tear or leak. The wound was irrigated and suctioned dry. With the hardware intact, intraoperative C-arm imaging was again taken which showed good alignment and position of the hardware at the appropriate levels at L4 5 and L5-S1. We were then able to measure, contour and place the rods and appropriate hardware bilaterally. I was able to place capcrews, tighten them down, and torque them with the torque screwdriver appropriately. With this intact I was able to place the local autogenous bone graft with additional bone graft enhancer as necessary into the posterior lateral gutters over the decorticated transverse processes and facet joints on the contralateral side. The remainder of the bone graft was placed over the facet joint on the contralateral side after taking down the facet joint capsule. With the bone graft intact, a stable construct, and good decompression at the appropriate levels, we were able to proceed with closure. Good hemostasis was maintained. There is no evidence of dural tear or leak. The fascia was closed for a watertight closure. he subcuticular tissue was closed with absorbable suture. The wound was cleaned and dried and dressed with the appropriate dressing. The drapes were broken down. The patient was gently rolled back onto their hospital bed being careful to maintain their cervical spine and good neutral alignment and position. They were woken up by anesthesia, extubated, and brought to the recovery room in good stable condition. The patient will be admitted to the hospital for appropriate postoperative care, medical management and monitoring. We will continue to follow them closely about the postoperative course.
[2023-04-09] MEDS: HYDROmorphone 1 MG/ML 1 ML SYRINGE IVP PRN ×3 (13:35→21:01)
[2023-04-09] MEDS: SODIUM CHLORIDE 0.9% 1,000 ML IV SCH (15:44)
[2023-04-09] MEDS: BACLOFEN 10 MG TAB PO SCH ×2 (15:44→21:03)
[2023-04-09] MEDS: HYDROcodone/APAP 5-325MG 1 EACH TAB PO PRN (15:46)
[2023-04-09] MEDS: lisinopriL 5 MG TAB PO SCH (20:20)
[2023-04-09] MEDS: METOPROLOL TARTRATE 50 MG TAB PO SCH (21:02)
[2023-04-09] MEDS: ATORVASTATIN 40 MG TAB PO SCH (21:03)
[2023-04-10] MEDS: HYDROcodone/APAP 5-325MG 1 EACH TAB PO PRN ×5 (00:32→19:45)
[2023-04-10] MEDS: HYDROmorphone 1 MG/ML 1 ML SYRINGE IVP PRN ×2 (02:26→06:31)
[2023-04-10] MEDS: LACTATED RINGERS 1,000 ML IV SCH (06:06)
[2023-04-10] MEDS: SODIUM CHLORIDE 0.9% 1,000 ML IV SCH ×2 (06:15→14:59)
[2023-04-10] MEDS: ASPIRIN 81 MG PO SCH (10:07)
[2023-04-10] MEDS: BACLOFEN 10 MG TAB PO SCH ×3 (10:07→21:43)
[2023-04-10] MEDS: METOPROLOL TARTRATE 50 MG TAB PO SCH ×2 (10:07→21:43)
[2023-04-10] MEDS: lisinopriL 5 MG TAB PO SCH ×2 (10:07→21:43)
[2023-04-10] MEDS: SENNOSIDES-DOCUSATE SODIUM 1 EACH TAB PO SCH (10:08)
[2023-04-10] MEDS: ESCITALOPRAM 20 MG TAB PO SCH (10:08)
[2023-04-10] MEDS: PRASUGREL 10 MG TAB PO SCH (10:09)
--- NOTE | 2023-04-10 10:23 | P.PN ---
Progress Note - Text Progress Note Date: 04/10/23 Postoperative day #1 Patient is seen and examined today at bedside. The patient has some pain around the surgical site as expected. Pain is being controlled with medication. He has been up and around. He is voiding freely. He is tolerating his regular diet. Physical Exam Afebrile with stable vital signs Abdomen is soft nontender. Chest has good excursion deep and space expiration The incision site is clean dry and intact. No erythema there is no purulence. His dressing is intact and stable. There is some small blood on the dressing without saturation. Extremities have not had neurologic change from prior to surgery. He has sustained dorsal flexion plantar flexion and EHL intact Calves and thighs were soft nontender without evidence of DVT. Assessment/Plan Postoperative day #1 status post minimally invasive decompression fusion L4 5 L5-S1 for his spinal stenosis with spondylolisthesis and lower extremity radiculopathy Patient is progressing as expected from the surgery. He has done well with his mobility and his pain controlled us far. He still requiring some IV and oral pain medications. We will continue to increase the patient's mobilization with therapy. We will continue pain control with oral or IV medications. We'll continue to follow patient closely. If he continues to do well he may be able to to be ready for discharge home tomorrow otherwise he may require another day.
--- NOTE | 2023-04-10 12:19 | FL ---
EXAM TYPE: FL guidance operating room COMPARISON: NONE HISTORY: Lumbar fusion TECHNIQUE: 4 limited resolution intraoperative views are submitted. FINDINGS: There is limited resolution images. There is apparent postsurgical change involving the low er lumbar spine. IMPRESSION: 1. See above.
--- NOTE | 2023-04-10 14:53 | P.CONS ---
History of Present Illness - Reason for Consult Consult date: 04/10/23 Medical management, postop L4-5 to S1 laminectomy with decompression - History of Present Illness This is a very pleasant 63-year-old male who was admitted under orthopedic Dr. Weathers services who underwent L4-5 to S1 laminectomy with decompression surgery. Patient reports he follows with Dr. Godinez in the outpatient setting with a past medical history of coronary artery disease, GERD, hypertension, previous myocardial infarctions, anxiety, current every day smoker, denies alcohol use and denies any other illicit drug use. Patient had been following with orthopedics outpatient and did receive surgical clearance from primary care provider as well as bread distributor. All medications have been reviewed and resumed as appropriate. Patient is up and walking and reports some pain at the site and generalized pain which is currently being controlled per orthopedics. Patient did have a low-grade temp of 99.9 and is currently normal. Patient with incentive spirometer at the bedside encouraged to continue using at least 10 times every hour while awake. Encouraged activity as tolerated with restrictions per orthopedics. Patient will be monitored overnight for pain control with possible discharge planning being discussed for tomorrow. Patient denies chest pain or shortness of breath. Patient is tolerating diet with no reported nausea or vomiting and reports is urinating with no difficulties. Patient is passing gas but has not had a bowel movement as of yet Review Of Systems: Constitutional: No fever, no chills, no night sweats. No weight change. No weakness, fatigue or lethargy. No daytime sleepiness. EENT: No headache. No blurred vision or double vision, no loss of vision. No loss of Hearing, no ringing in the ears, no dizziness. No nasal drainage or congestion. No epistaxis. No sore throat. Lungs: No shortness of breath, cough, no sputum production. No wheezing. Cardiovascular: No chest pain, no lower extremity edema. No palpitations. No paroxysmal nocturnal dyspnea. No orthopnea. No lightheadedness or dizziness. No syncopal episodes. Abdominal: No abdominal pain. No nausea, vomiting. No diarrhea. No constipation. No bloody or tarry stools.. No loss of appetite. Genitourinary: No dysuria, increased frequency, urgency. No urinary retention. Musculoskeletal: No myalgias. No muscle weakness, no gait dysfunction, no frequent falls. Reports back pain at the sites. No neck pain. Integumentary: No wounds, no lesions. No rash or pruritus. No unusual bruising. No change in hair or nails. Neurologic: No aphasia. No facial droop. No change in mentation. No head injury. No headache. No paralysis. No paresthesia. Psychiatric: No depression. No anxiety. No mood swings. Endocrine: No abnormal blood sugars. No weight change. No excessive sweating or thirst. No cold intolerance. PHYSICAL EXAMINATION: GENERAL: The patient is alert and oriented x4, Well developed, well nourished. Thin built, elderly appearing male HEENT: Pupils are round and equally reacting to light. EOMI. no scleral icterus. No conjunctival pallor. Normocephalic, atraumatic. No pharyngeal erythema. No thyromegaly. CARDIOVASCULAR: S1 and S2 muffled PULMONARY: diminished breath sounds bilaterally with no wheezing , coarse rhonchi noted. ABDOMEN: soft. Nontender on exam. Thin built. non-distended, normoactive bowel sounds. No palpable organomegaly. MUSCULOSKELETAL: No joint swelling or deformity. EXTREMITIES: No cyanosis, clubbing, or pedal edema. NEUROLOGICAL: Gross neurological examination did not reveal any focal deficits. SKIN: No rashes. Assessment: Status post L4-5 to S1 laminectomy with decompression, postop day 1 History of severe spinal stenosis with spinal listhesis L4-5 to S1 and facet cyst L4-5 with degenerative disc disease and lower extremity radiculopathy with chronic low back pain History of coronary artery disease GERD Hypertension History of anxiety Continued ongoing nicotine dependence GI prophylaxis DVT prophylaxis Full code Plan: Patient is continued on pain medication and management per orthopedics. Encourage the patient to limit IV narcotic use and continue with oral medications Encouraged increased activity as tolerated and frequent walking as tolerated with restrictions per orthopedics Encouraged oral intake. Discussed complete smoking cessation to promote healing. Patient reports he has not smoked in the last few days. Offered nicotine patch and patient refused. Patient reports he quit cold turkey Patient with incentive spirometer at bedside encouraged to continue using at least 10 times every hour while awake. Patient did have 1 low-grade temp this morning of 99.9 although is normal in encouraged coughing and deep breathing along with incentive spirometer use. Patient denies shortness of breath, pain or burning with frequency and does not appear infectious Patient instructed to follow-up with primary care provider on discharge. Patient reports he did obtain pre-surgical clearance from bread distributor as well as primary care provider We will continue to follow with orthopedics during hospitalization. Thank you kindly for this consultation. The impression and plan of care has been dictated by Kathy Morgan, nurse practitioner as directed. Dr. Joao MD I have performed a history and examination and MDM of this patient, discussed the same with the dictator, and agree with the dictator's assessment and plan as written ,documented as a scribe. Based on total visit time, I have performed more than 50% of the visit. Any additional findings or plans will be noted. Past Medical History Past Medical History: Coronary Artery Disease (CAD), GERD/Reflux, Hypertension, Myocardial Infarction (MD) Additional Past Medical History / Comment(s): headaches, borderline anemic, "low iron", "low WBC's", past acid refux, Last Myocardial Infarction Date:: History of Any Multi-Drug Resistant Organisms: None Reported Past Surgical History: Heart Catheterization With Stent, Hernia Repair, Orthopedic Surgery Additional Past Surgical History / Comment(s): beau knee arthroscopy, beau knee surgery as teen, Past Anesthesia/Blood Transfusion Reactions: No Reported Reaction Date of Last Stent Placement:: 11/12/2022 Smoking Status: Current every day smoker - Past Family History Father Family Medical History: Cancer Medications and Allergies Home Medications Medication Instructions Recorded Confirmed Type ALPRAZolam [Xanax] 0.5 mg PO BID PRN 04/16/19 04/03/23 History Baclofen [Lioresal] 10 mg PO TID 11/12/22 04/03/23 History Escitalopram [Lexapro] 20 mg PO DAILY 11/12/22 04/03/23 History Metoclopramide [Reglan] 10 mg PO Q6H PRN #20 tab 11/12/22 04/03/23 Rx Aspirin 81 mg PO DAILY tab 11/14/22 04/03/23 Rx Metoprolol Tartrate [Lopressor] 50 mg PO BID #180 tab 11/14/22 04/03/23 Rx Prasugrel [Effient] 10 mg PO DAILY #90 tab 11/14/22 04/03/23 Rx Pantoprazole Sodium [Protonix] 40 mg PO AC-BID PRN 01/14/23 04/03/23 History lisinopriL [Zestril] 5 mg PO BID 01/14/23 04/03/23 History Acetaminophen Tab [Tylenol] 650 mg PO Q6HR PRN tab 01/15/23 04/03/23 Rx Atorvastatin [Lipitor] 40 mg PO HS 04/03/23 04/03/23 History traMADol HCL 50 mg PO Q6H PRN 04/03/23 04/03/23 History Allergies Allergy/AdvReac Type Severity Reaction Status Date / Time No Known Allergies Allergy Verified 04/09/23 06:11 Physical Exam Vitals: Vital Signs Temp Pulse Resp BP Pulse Ox 04/10/23 10:06 87 104/67 04/10/23 08:00 99.9 F H 89 20 96/61 96 04/10/23 02:15 98.6 F 88 18 105/66 96 04/09/23 19:24 98.4 F 94 20 107/73 97 04/09/23 13:48 97.4 F L 89 18 134/79 100 04/09/23 13:03 68 16 132/78 100 04/09/23 12:50 66 111/72 99 04/09/23 12:35 69 110/73 100 04/09/23 12:20 64 16 105/67 99 04/09/23 12:05 69 16 111/75 99 04/09/23 11:50 65 16 108/79 100 04/09/23 11:36 72 16 121/85 100 Intake and Output 04/09/23 04/10/23 04/10/23 22:59 06:59 14:59 Intake Total 50 Output Total 2400 Balance 50 -2400 Intake: Intake, IV Titration 50 Amount ceFAZolin 2 gm In Sodium 50 Chloride 0.9% 50 ml @ 100 mls/hr IVPB Q8HR [facility] Rx# :[id number] Output: Urine 2400 Other: Voiding Method Indwelling Catheter Toilet
[2023-04-10 15:24] VITALS: BMI 23.2
[2023-04-10 17:51] LABS: Basophils # (A) 0.01 X 10*3/uL (0.00-0.10); Basophils % (A) 0.1 %; Eosinophils # (A) 0.01 X 10*3/uL (0.04-0.35); Eosinophils % (A) 0.1 %; HCT 33.5 % (39.6-50.0); Lymphocytes # (A) 1.12 X 10*3/uL (0.90-5.00); Lymphocytes % (A) 9.7 %; MCH 32.5 pg (27.0-32.0); MCHC 32.8 d/dL (32.0-37.0); MCV 99.1 FL (80.0-97.0); Mean Platelet Volume 11.9 FL (9.5-12.2); Monocytes # (A) 1.18 X 10*3/uL (0.20-1.00); Monocytes % (A) 10.3 %; NRBC Per 100 WBC 0 X 10*3/uL (0.00-0.01); Neutrophils # (A) 9.03 X 10*3/uL (1.80-7.70); Neutrophils % (A) 78.5 %; Platelet Count 94 X 10*3/uL (140-440); RBC 3.38 X 10*6/uL (4.40-5.60); RDW 12.6 % (11.5-14.5)
[2023-04-10] MEDS: ATORVASTATIN 40 MG TAB PO SCH (21:43)
[2023-04-11 01:03] LABS: Blood Urea Nitrogen 10.1 mg/dL (9.0-27.0); Calcium 8.2 mg/dL (8.7-10.3); Carbon Dioxide 21.1 mmol/L (21.6-31.8); Chloride 101 mmol/L (96-109); Glucose 88 mg/dL (70-110); Potassium 3.9 mmol/L (3.5-5.5); Sodium 132 mmol/L (135-145)
[2023-04-11] MEDS: HYDROcodone/APAP 5-325MG 1 EACH TAB PO PRN ×2 (02:01→08:06)
[2023-04-11] MEDS: LACTATED RINGERS 1,000 ML IV SCH (06:59)
[2023-04-11] MEDS: lisinopriL 5 MG TAB PO SCH (08:06)
[2023-04-11] MEDS: SENNOSIDES-DOCUSATE SODIUM 1 EACH TAB PO SCH (08:06)
[2023-04-11] MEDS: ASPIRIN 81 MG PO SCH (08:06)
[2023-04-11] MEDS: METOPROLOL TARTRATE 50 MG TAB PO SCH (08:06)
[2023-04-11] MEDS: ESCITALOPRAM 20 MG TAB PO SCH (08:07)
[2023-04-11] MEDS: BACLOFEN 10 MG TAB PO SCH (08:07)
[2023-04-11] MEDS: SODIUM CHLORIDE 0.9% 1,000 ML IV SCH (08:07)
[2023-04-11] MEDS: PRASUGREL 10 MG TAB PO SCH (08:07)
[2023-04-11 08:42] VITALS: RESP 20
--- NOTE | 2023-04-11 12:34 | P.DS ---
Providers Attending physician: Gregorio Weathers Consults: 04/09/23 11:43 Consult Physician Routine Consulting Provider: Suleiman Roy Consult Reason/Comments: medical management Do you want consulting provider notified?: Yes Primary care physician: [facility] Course: The patient presented on the day of admission as per their operative note. He underwent minimally invasive decompression fusion L4 5 L5-S1 for his spondyloli sthesis with spinal stenosis as per his note. He feels his back is doing somewhat better and his legs have improved. He has been able to ambulate on his own in the lumen void freely. He is tolerating his regular diet. He denies any nausea vomiting or fevers. Physical Exam The incision site is clean dry and intact. There is no erythema no drainage. There is no purulence no evidence of infection. There is no erythema there is no significant swelling Abdomen soft and nontender. Chest has good excursion with deep inspiration and expiration. The patient has active and passive range of motion intact at the upper and lower extremities. There is no acute change in neurologic status. He has sustained dorsal flexion plantar flexion and EHL intact Hospital Course Postoperative day #2 status post malleolus decompression fusion L4 5 L5-S1 for spondylolisthesis spinal stenosis with lower extremity radiculopathy and back pain The patient has been making good progress postoperatively. They have completed the prophylactic antibiotics without any signs or symptoms of infection. The patient has been able to advance their diet, and is tolerating diet adequately. The pain was initially controlled with IV medications and is now controlled appropriately with oral medications. The patient has been able to increase their mobilization. The patient has progressed appropriately. I think they are in good stable condition for discharge today. They will be sent home with appropriate prescriptions. I answered their questions to the best of my ability in a language that they can understand and they are agreeable with the plan. They will follow up as directed in approximately 2 weeks or sooner if having any problems. Patient Condition at Discharge: Good Plan - Discharge Summary Discharge Rx Participant: No New Discharge Prescriptions: New Cyclobenzaprine [Flexeril] 10 mg PO TID PRN #90 tab PRN Reason: Spasms HYDROcodone/APAP 5-325MG [Winston 5-325] 1 tab PO Q4HR PRN #42 tab PRN Reason: Pain No Action ALPRAZolam [Xanax] 0.5 mg PO BID PRN PRN Reason: Anxiety Metoclopramide [Reglan] 10 mg PO Q6H PRN #20 tab PRN Reason: Nausea And Vomiting Aspirin 81 mg PO DAILY tab Prasugrel [Effient] 10 mg PO DAILY #90 tab lisinopriL [Zestril] 5 mg PO BID traMADol HCL 50 mg PO Q6H PRN PRN Reason: Pain Atorvastatin [Lipitor] 40 mg PO HS Escitalopram [Lexapro] 20 mg PO DAILY Baclofen [Lioresal] 10 mg PO TID Metoprolol Tartrate [Lopressor] 50 mg PO BID #180 tab Pantoprazole Sodium [Protonix] 40 mg PO AC-BID PRN PRN Reason: Heartburn Acetaminophen Tab [Tylenol] 650 mg PO Q6HR PRN tab PRN Reason: Mild Pain Or Fever > 100.5 Discharge Medication List ALPRAZolam [Xanax] 0.5 mg PO BID PRN 04/16/19 [History] Baclofen [Lioresal] 10 mg PO TID 11/12/22 [History] Escitalopram [Lexapro] 20 mg PO DAILY 11/12/22 [History] Metoclopramide [Reglan] 10 mg PO Q6H PRN #20 tab 11/12/22 [Rx] Aspirin 81 mg PO DAILY tab 11/14/22 [Rx] Metoprolol Tartrate [Lopressor] 50 mg PO BID #180 tab 11/14/22 [Rx] Prasugrel [Effient] 10 mg PO DAILY #90 tab 11/14/22 [Rx] Pantoprazole Sodium [Protonix] 40 mg PO AC-BID PRN 01/14/23 [History] lisinopriL [Zestril] 5 mg PO BID 01/14/23 [History] Acetaminophen Tab [Tylenol] 650 mg PO Q6HR PRN tab 01/15/23 [Rx] Atorvastatin [Lipitor] 40 mg PO HS 04/03/23 [History] traMADol HCL 50 mg PO Q6H PRN 04/03/23 [History] Cyclobenzaprine [Flexeril] 10 mg PO TID PRN #90 tab 04/11/23 [Rx] HYDROcodone/APAP 5-325MG [Winston 5-325] 1 tab PO Q4HR PRN #42 tab 04/11/23 [Rx] Patient Instructions/Handouts: *[facility] - (O&A) Arthroscopic Knee Post-Op Instructions, *[facility] - (Adv Ortho) Arthroscopic Knee Post-Op Instructions
[2023-04-11 12:59] VITALS: BP 93/60; PULSE 75; TEMP 98.5
--- NOTE | 2023-04-11 21:46 | P.PN ---
Subjective Progress Note Date: 04/11/23 - Reason for Consult Consult date: 04/10/23 Medical management, postop L4-5 to S1 laminectomy with decompression - History of Present Illness This is a very pleasant 63-year-old male who was admitted under orthopedic Dr. Weathers services who underwent L4-5 to S1 laminectomy with decompression surgery. Patient reports he follows with Dr. Godinez in the outpatient setting with a past medical history of coronary artery disease, GERD, hypertension, previous myocardial infarctions, anxiety, current every day smoker, denies alcohol use and denies any other illicit drug use. Patient had been following with orthopedics outpatient and did receive surgical clearance from primary care provider as well as regional sales director. All medications have been reviewed and resumed as appropriate. Patient is up and walking and reports some pain at the site and generalized pain which is currently being controlled per orthopedics. Patient did have a low-grade temp of 99.9 and is currently normal. Patient with incentive spirometer at the bedside encouraged to continue using at least 10 times every hour while awake. Encouraged activity as tolerated with restrictions per orthopedics. Patient will be monitored overnight for pain control with possible discharge planning being discussed for tomorrow. Patient denies chest pain or shortness of breath. Patient is tolerating diet with no reported nausea or vomiting and reports is urinating with no difficulties. Patient is passing gas but has not had a bowel movement as of yet 04/11/2023 Patient is seen in follow-up this morning reports doing well and awaiting orthopedics to follow-up as patient would like to go home. Patient is afebrile with no reports of chest pain or shortness of breath. Patient has incentive spirometer at the bedside and encourage the patient continue using at least 10 times every hour and take home as well. Patient reports pain is controlled on current regimen and we'll continue to defer pain management per orthopedics. Patient has been up and walking and reports has support at home. Patient is medically stable for discharge today. Review of systems: Constitutional: No reports of fatigue, fever, or chills Cardiovascular: No reports of chest pain or palpitations Respiratory: No reports of shortness of breath or cough GI: No reports of nausea, vomiting, or diarrhea : No reports of dysuria or retention Neurovascular: No reports of weakness, reports lower back discomfort but managed All medications have been reviewed PHYSICAL EXAMINATION: GENERAL: The patient is alert and oriented x4, Well developed, well nourished. Thin built, elderly appearing male HEENT: Pupils are round and equally reacting to light. EOMI. no scleral icterus. No conjunctival pallor. Normocephalic, atraumatic. No pharyngeal erythema. No thyromegaly. CARDIOVASCULAR: S1 and S2 muffled PULMONARY: diminished breath sounds bilaterally with no wheezing , coarse rhon chi noted. ABDOMEN: soft. Nontender on exam. Thin built. non-distended, normoactive bowel sounds. No palpable organomegaly. MUSCULOSKELETAL: No joint swelling or deformity. EXTREMITIES: No cyanosis, clubbing, or pedal edema. NEUROLOGICAL: Gross neurological examination did not reveal any focal deficits. SKIN: No rashes. Assessment: Status post L4-5 to S1 laminectomy with decompression, postop day 2 History of severe spinal stenosis with spondylolisthesis L4-5 to S1 and facet cyst L4-5 with degenerative disc disease and lower extremity radiculopathy with chronic low back pain History of coronary artery disease GERD Hypertension History of anxiety Continued ongoing nicotine dependence GI prophylaxis DVT prophylaxis Full code Plan: Patient is continued on pain medication and management per orthopedics. Encourage the patient to limit IV narcotic use and continue with oral medic ations Encouraged increased activity as tolerated and frequent walking as tolerated with restrictions per orthopedics Encouraged oral intake. Discussed complete smoking cessation to promote healing. Patient reports he has not smoked in the last few days. Offered nicotine patch and patient refused. Patient reports he quit cold turkey Patient with incentive spirometer at bedside encouraged to continue using at least 10 times every hour while awake. Patient encouraged to take incentive spirometer home as well Has remained afebrile for over 24 hours and denies any shortness of breath, urinary frequency or pain and does not appear infectious. Patient instructed to follow-up with primary care provider on discharge. Patient reports he did obtain pre-surgical clearance from regional sales director as well as primary care provider Patient is medically stable for discharge today and discussing possible discharge home. Patient reports has support in the home. We will continue to follow with orthopedics during hospitalization. Thank you kindly for this consultation. The impression and plan of care has been dictated by Kathy Morgan, nurse practitioner as directed. Dr. Joao MD I have performed a history and examination and MDM of this patient, discussed the same with the dictator, and agree with the dictator's assessment and plan as written ,documented as a scribe. Based on total visit time, I have performed more than 50% of the visit. Any additional findings or plans will be noted. Objective - Vital Signs Vital signs: Vital Signs Temp 98.7 F 04/11/23 08:00 Pulse 83 04/11/23 08:00 Resp 20 04/11/23 08:00 BP 92/58 04/11/23 08:00 Pulse Ox 96 04/11/23 08:00 FiO2 Intake & Output 04/10/23 04/11/23 04/11/23 18:59 06:59 18:59 Weight 77.7 kg Other: Voiding Method Toilet Toilet Toilet # Voids 2 3 - Labs CBC & Chem 7: 04/10/23 06:42 04/10/23 06:42 Labs: Abnormal Lab Results - Last 24 Hours (Table) 04/10/23 04/10/23 Range/Units 06:42 06:42 WBC 11.50 H (4.50-10.00) X 10*3/uL RBC 3.38 L (4.40-5.60) X 10*6/uL Hgb 11.0 L (13.0-17.0) d/dL Hct 33.5 L (39.6-50.0) % MCV 99.1 H (80.0-97.0) FL MCH 32.5 H (27.0-32.0) pg Plt Count 94 L (140-440) X 10*3/uL Neutrophils # 9.03 H (1.80-7.70) X 10*3/uL Monocytes # 1.18 H (0.20-1.00) X 10*3/uL Eosinophils # 0.01 L (0.04-0.35) X 10*3/uL Sodium 132 L (135-145) mmol/L Carbon Dioxide 21.1 L (21.6-31.8) mmol/L Creatinine 0.5 L (0.6-1.5) mg/dL BUN/Creatinine Ratio 20.20 H (12.00-20.00) Ratio Calcium 8.2 L (8.7-10.3) mg/dL
== END 2023-04-11 13:55 | disposition home or self-care (01) ==
LOC: OR 05:46 → 5NMEDONC 11:24 → OR 04-11 13:55
PROVIDERS: ATTEND Orthopaedic Surgery Orthopaedic Surgery of the Spine
DX: M51.17 Intervertebral disc disorders with radiculopathy, lumbosacral region (principal); M47.27 Other spondylosis with radiculopathy, lumbosacral region; M48.061 Spinal stenosis, lumbar region without neurogenic claudication; I10 Essential (primary) hypertension; I25.2 Old myocardial infarction; I25.10 Atherosclerotic heart disease of native coronary artery without angina pectoris; E78.5 Hyperlipidemia, unspecified; Z85.840 Personal history of malignant neoplasm of eye; Z98.890 Other specified postprocedural states; Z82.49 Family history of ischemic heart disease and other diseases of the circulatory system; Z83.3 Family history of diabetes mellitus; F17.200 Nicotine dependence, unspecified, uncomplicated; F41.9 Anxiety disorder, unspecified; K21.9 Gastro-esophageal reflux disease without esophagitis; Z79.811 Long term (current) use of aromatase inhibitors; Z79.899 Other long term (current) drug therapy
CPT/HCPCS: 22633; 22853; 20936; 97162; 86891; 86900; 86901; 80048; 85025; 86850; 72100; C1713 ×2; C1762; P9045; J2250; J0330; J2710; J0690 ×3; J2405; J3010; J1170 ×3; J2704; J1644; J2371

== ENCOUNTER 2024-05-20 00:35 | Inpatient (IN) | payer MEDICARE ==
[2024-05-20] MEDS: ETOMIDATE 2 MG/ML 10 ML VIAL IVP STA (00:52)
[2024-05-20] MEDS: MIDAZOLAM 1 MG/ML 5 ML VIAL IV STA ×2 (01:03→22:24)
[2024-05-20] MEDS: SODIUM CHLORIDE 0.9% 1,000 ML IV STA (01:05)
[2024-05-20] MEDS: fentaNYL (PF) 50 MCG/ML 2 ML AMP IVP STA (01:06)
[2024-05-20 01:21] LABS: Basophils % (A) 0 %; Eosinophils % (A) 0 %; HCT 52.7 % (39.0-53.0); Lymphocytes # (A) 0.9 k/uL (1.0-4.8); Lymphocytes % (A) 7 %; MCHC 32.3 g/dL (31.0-37.0); MCV 99.2 fL (80.0-100.0); Mean Platelet Volume 8.1; Monocytes # (A) 0.6 k/uL (0-1.0); Monocytes % (A) 5 %; Neutrophils # (A) 11.8 k/uL (1.3-7.7); Neutrophils % (A) 88 %; Platelet Count 123 k/uL (150-450); RBC 5.31 m/uL (4.30-5.90); RDW 13.3 % (11.5-15.5); WBC 13.5 k/uL (3.8-10.6)
[2024-05-20 01:32] LABS: AST 54 U/L (17-59); African American GFR (CKD) >90 (>60 ml/min/1.73 sqM); Albumin 4.3 g/dL (3.5-5.0); Alcohol <10 mg/dL; Alkaline Phosphatase 124 U/L (38-126); Anion Gap 20 mmol/L; Blood Urea Nitrogen 28 mg/dL (9-20); Calcium 9.3 mg/dL (8.4-10.2); Carbon Dioxide 12 mmol/L (22-30); Chloride 105 mmol/L (98-107); Creatine Kinase 164 U/L (55-170); Glucose 144 mg/dL (74-99); Non-African American GFR(CKD) >90 (>60 ml/min/1.73 sqM); Potassium 4.2 mmol/L (3.5-5.1); Sodium 137 mmol/L (137-145); Total Bilirubin 2.4 mg/dL (0.2-1.3); Total Protein 7.7 g/dL (6.3-8.2)
[2024-05-20 01:40] LABS: ALT 65 U/L (4-49)
[2024-05-20] MEDS: SUCCINYLCHOLINE CHLORIDE 200 MG/10 ML VIAL IV STA (01:41)
[2024-05-20 01:45] LABS: INR 1.2 (<1.2); Partial Thromboplastin Time 25.9 sec (22.0-30.0); Prothrombin Time 12.6 sec (10.0-12.5)
[2024-05-20] MEDS: ACETAMINOPHEN IV (For NPO) 1,000 MG in EMPTY BAG 1 BAG IVPB STA (01:50)
--- NOTE | 2024-05-20 01:55 | XR ---
EXAM: XR Chest, 1 View CLINICAL HISTORY: ITS.REASON XR Reason: TRAUMA TECHNIQUE: Frontal view of the chest. COMPARISON: X-ray chest: 04/02/2023 FINDINGS: Patient's body habitus limits the study. An endotracheal tube is placed with the tip about 2.5 cm proximal to the darrion. A NG tube is seen distally up to the T7/T8 level. Lungs: Left perihilar interstitial pattern edema or infiltrates. Right lung is relatively clear. No consolidation. Pleural space: No pleural effusion is seen. No pneumothorax. Heart: No cardiomegaly. Mediastinum: Mildly widened superior mediastinum. Tortuous appearing prominent aortic arch. Bones/joints: Old fracture deformity of the middle third left clavicle. Osteopenia. No obvious acute fracture.. IMPRESSION: Distally NG tube is visualized up to the T7/T8 level. Optimally placed endotracheal tube. Left perihilar moderate interstitial pattern mild edema or infiltrates. Mild widening of the superior mediastinum. Tortuous appearing thoracic aortic arch. CT chest would provide greater anatomical details. .
[2024-05-20 01:56] LABS: ABG Base Excess -6.4 mmol/L; ABG HCO3 20 mmol/L (21-25); ABG Oxygen Saturation 100.2 % (94-97); ABG PCO2 40 mmHg (35-45); ABG TCO2 21 mmol/L (19-24); Allen Test Performed? Yes
[2024-05-20 02:00] LABS: ABG PO2 >420 mmHg (83-108)
[2024-05-20 02:13] LABS: Appearance,Urine Clear (Clear); Bacteria,Urine Rare /hpf; Bilirubin,Urine Negative (Negative); Blood,Urine Large (Negative); Budding Yeast,Urine Rare /hpf; Color,Urine Yellow; Glucose,Urine (UA) 2+ (Negative); Hyaline Casts,Urine 8 /lpf (0-2); Ketones,Urine 1+ (Negative); Leukocyte Esterase,Urine Negative (Negative); Mucus,Urine Rare /hpf; Nitrite,Urine Negative (Negative); Protein,Urine 2+ (Negative); RBC,Urine >182 /hpf (0-5); Squamous Epithelial Cell,Urine <1 /hpf (0-4); Urobilinogen,Urine <2.0 mg/dL (<2.0); WBC,Urine 8 /hpf (0-5)
[2024-05-20] MEDS: levETIRAcetam IV 2,000 MG in SODIUM CHLORIDE 0.9% 250 ML IVPB ONE (02:14)
--- NOTE | 2024-05-20 02:14 | CT ---
EXAM: CT Head Without Intravenous Contrast CLINICAL HISTORY: ITS.REASON CT Reason: TRAUMA TECHNIQUE: Axial computed tomography images of the head/brain without intravenous contrast. CTDI is 45.2 mGy and DLP is 1167 mGy-cm. This CT exam was performed using one or more of the following dose reduction techniques: automated exposure control, adjustment of the mA and/or kV according to patient size, and/or use of iterative reconstruction technique. COMPARISON: CT dictated report: 05/08/2023 FINDINGS: Image diagnostic quality is markedly degraded by motion and metallic beam hardening artifacts. Patient is intubated. Brain: There is no acute intracranial hemorrhage, mass-effect or midline shift. Valerio-white matter differentiation is maintained. Ventricles: Unremarkable. No ventriculomegaly. Bones/joints: Unremarkable. No acute fracture. Soft tissues: Unremarkable. Sinuses: Fluid seen in the bilateral ethmoid air cells and nasal cavities, likely from intubation. Mastoid air cells: Unremarkable as visualized. No mastoid effusion. IMPRESSION: . No acute intracranial abnormality noted. EXAM: CT Cervical Spine Without Intravenous Contrast CLINICAL HISTORY: ITS.REASON CT Reason: TRAUMA TECHNIQUE: Axial computed tomography images of the cervical spine without intravenous contrast. CTDI is 1.0 mGy and DLP is 643 mGy-cm. This CT exam was performed using one or more of the following dose reduction techniques: automated exposure control, adjustment of the mA and/or kV according to patient size, and/or use of iterative reconstruction technique. COMPARISON: CT cervical spine dictated report: 05/08/2023 FINDINGS: Motion-induced image degradation. Vertebrae: Osteopenia.. No acute fracture. No segmental malalignment. Discs/spinal canal/neural foramina: Multilevel mild/moderate degenerative disc/endplates and predominantly posterior elements spondylitic changes noted with mild/moderate foraminal and mild anterior thecal sac compression Soft tissues: Unremarkable. Lungs as visualized: Right posterior subpleural probably dependent atelectasis. IMPRESSION: . No significant cervical vertebral abnormalities post trauma.
[2024-05-20] MEDS: fentaNYL (PF). 1,000 MCG in SODIUM CHLORIDE 0.9% 80 ML IV SCH (02:19)
[2024-05-20 02:28] LABS: Cocaine Screen,Urine Not Detected (NotDetected); Opiate Screen,Urine Detected (NotDetected); Phencyclidine Screen,Urine Not Detected (NotDetected); Urn Cannabinoid Scrn Detected (NotDetected)
[2024-05-20] MEDS: levETIRAcetam IV 500 MG/5 ML VIAL IVP STA (02:28)
[2024-05-20 02:29] LABS: Amphetamine Screen,Urine Not Detected (NotDetected); Barbiturate Screen,Urine Not Detected (NotDetected); Benzodiazepines Screen,Urine Detected (NotDetected); Methadone Screen, Urine Not Detected (NotDetected); Oxycodone Screen, Urine Not Detected (NotDetected); Tricyclic Antidepressant,Urine Not Detected (NotDetected)
--- NOTE | 2024-05-20 02:29 | CT ---
EXAM: CT Abdomen and Pelvis With Intravenous Contrast CLINICAL HISTORY: ITS.REASON CT Reason: TRAUMA TECHNIQUE: Axial computed tomography images of the abdomen and pelvis with intravenous contrast. CTDI is 12.8 mGy and DLP is 870.1 mGy-cm. This CT exam was performed using one or more of the following dose reduction techniques: automated exposure control, adjustment of the mA and/or kV according to patient size, and/or use of iterative reconstruction technique. COMPARISON: CT abdomen/pelvis: 01/14/2023 FINDINGS: Image quality is hampered by motion and beam hardening artifacts. Lung bases: Concurrently performed CT chest is reported separately. ABDOMEN: Analysis of abdominal/pelvic viscera and vascular structures is limited in absence of IV contrast. Liver: Diffuse fatty hepatic infiltration. Subtle contour irregularity, concerning for a chronic parenchymal liver disease/cirrhosis. No mass. Gallbladder and bile ducts: Unremarkable. No calcified stones. No ductal dilation. Pancreas: Diffusely mildly atrophic pancreas. No mass. No ductal dilation. Spleen: Moderate splenomegaly, 16 cm in craniocaudal length.. Adrenals: A small 1.1 cm fat-containing right adrenal nodule, a benign lesion, question an adrenal myolipoma versus a lipid rich adrenal adenoma (series 401 image 62). Morphologically normal left adrenal gland. Kidneys and ureters: A 10 mm nonobstructive calculus is seen in a mildly dilated right renal pelvis (series 401 image 78). No solid mass. No hydronephrosis. Stomach and bowel: A distended stomach filled with ingested fluid/gas is seen with a terminating NG tube. Normal caliber small bowel. Descending colonic and sigmoid diverticulosis coli with increased sigmoid wall thickening, likely from chronic diverticulitis, although cannot exclude malignancy. No obstruction. PELVIS: Appendix: No findings to suggest acute appendicitis. Bladder: A decompressed bladder with a Oakes's catheter in situ.. Reproductive: Borderline enlarged prostate. ABDOMEN and PELVIS: Intraperitoneal space: No free air. No significant fluid collection. Bones/joints: Osteopenia. No acute fracture. No dislocation. A postsurgical spine with fusion instrumentation from L4-S1 levels. Multilevel mild chronic appearing thoracolumbar compression deformity. Anteriorly bridging osteophytes of the mid/lower thoracic spine. Soft tissues: Unremarkable. Vasculature: Unremarkable. No abdominal aortic aneurysm. Lymph nodes: Unremarkable. No enlarged lymph nodes.. IMPRESSION: . No CT evidence of solid abdominal/pelvic organ injury noted. No free intraperitoneal air, free fluid or acute fracture seen. A distended stomach filled with ingested fluid/gas. Diffuse fatty hepatic infiltration. Splenomegaly. A 10 mm nonobstructive calculus is seen in a mildly dilated right renal pelvis. Abnormal wall thickening of the sigmoid colon, likely from chronic diverticulitis. Since differential diagnosis includes malignancy, follow- up with colonoscopy recommended at clinically appropriate time. Additional chronic findings as described above
[2024-05-20] MEDS: CEFEPIME 2 GM in SODIUM CHLORIDE 0.9% 100 ML IVPB STA (02:32)
--- NOTE | 2024-05-20 02:54 | ED ---
Fall HPI - General Chief Complaint: Fall Stated Complaint: Fall Time Seen by Provider: 05/20/24 01:10 Source: EMS Mode of arrival: EMS - History of Present Illness Initial Comments: History limited by acuity of condition. History obtained via EMS report. They state that patient has had nausea and vomiting throughout the day today. This evening patient's family heard him fall. They found him shaking and having seizure-like activity. On EMS arrival patient was confused and combative. They gave him 10 mg IM Versed which. To calm him somewhat. Patient does not return to baseline. He has no known history of seizures. Is reported to be on blood thinners. - Related Data Home Medications Medication Instructions Recorded Confirmed ALPRAZolam [Xanax] 0.5 mg PO BID PRN 04/16/19 05/07/23 Baclofen [Lioresal] 10 mg PO TID 11/12/22 05/07/23 Escitalopram [Lexapro] 20 mg PO DAILY 11/12/22 05/07/23 Pantoprazole Sodium [Protonix] 40 mg PO AC-BID PRN 01/14/23 05/07/23 Atorvastatin [Lipitor] 40 mg PO DAILY 04/03/23 05/07/23 Cyclobenzaprine [Flexeril] 10 mg PO TID PRN 05/07/23 05/07/23 HYDROcodone/APAP 5-325MG [[place] 1 tab PO BID PRN 05/07/23 05/07/23 5-325] HYDROcodone/APAP 5-325MG [[place] 1 tab PO HS 05/07/23 05/07/23 5-325] Metoprolol Tartrate [Lopressor] 25 mg PO BID 05/07/23 05/07/23 Previous Rx's Medication Instructions Recorded Metoclopramide [Reglan] 10 mg PO Q6H PRN #20 tab 11/12/22 Aspirin 81 mg PO DAILY tab 11/14/22 Prasugrel [Effient] 10 mg PO DAILY #90 tab 11/14/22 Acetaminophen Tab [Tylenol] 650 mg PO Q6HR PRN tab 01/15/23 Allergies Allergy/AdvReac Type Severity Reaction Status Date / Time No Known Allergies Allergy Verified 05/07/23 20:00 Review of Systems ROS Statement: Those systems with pertinent positive or pertinent negative responses have been documented in the HPI. ROS Other: All systems not noted in ROS Statement are negative. Limitations: ROS unobtainable due to patients medical condition Past Medical History Past Medical History: Coronary Artery Disease (CAD), GERD/Reflux, Hypertension, Myocardial Infarction ([place]) Additional Past Medical History / Comment(s): headaches, borderline anemic, "low iron", "low WBC's", past acid refux, Last Myocardial Infarction Date:: History of Any Multi-Drug Resistant Organisms: None Reported Past Surgical History: Heart Catheterization With Stent, Hernia Repair, Orthopedic Surgery Additional Past Surgical History / Comment(s): beau knee arthroscopy, beau knee surgery as teen, Past Anesthesia/Blood Transfusion Reactions: No Reported Reaction Date of Last Stent Placement:: 11/12/2022 Past Psychological History: Anxiety Smoking Status: Current every day smoker - Past Family History Father Family Medical History: Cancer General Exam - General Exam Comments Initial Comments: PE: CONSTITUTIONAL: Ill-appearing, laying on his side in EMS stretcher, eyes closed, awakens to being moved from stretcher to bed, thrashes limbs and pulls of monitors SKIN: warm, dry, no jaundice, hives or petechiae, scattered yellow-purple bruises of varying ages across abdomen and back, linear abrasion posterior right leg EYES: pupils are equally round, extraocular movements intact without nystagmus, clear conjunctiva, non-icteric sclera HENT: normocephalic, atraumatic, moist mucus membranes, oropharynx clear without exudates, no tongue biting present, no hemotympanum, no septal lacerations or hematomas, no ramires's sign NECK: , Full range of motion, normal appearance PULMONARY: Clear to auscultation without wheezes, rhonchi, or rales, normal excursion, no accessory muscle use and no stridor CARDIOVASCULAR: Regular rate, rhythm, normal S1 and S2. No appreciated murmurs, rubs or gallops. Strong radial pulses with intact distal perfusion. No lower extremity edema GASTROINTESTINAL: Soft, active bowel sounds throughout, non-tender, non- distended, no palpable masses, no rebound or guarding. No hepatosplenomegaly MUSCULOSKELETAL: Extremities have no gross deformity, no edema, redness, or swelling. No calf swelling NEUROLOGIC:_a/o x 0, GCS 8-9, intermittently opens eyes to verbal command, then to pain; incomprehensible sounds,confused mentation, Moves all extremities x 4 without motor deficit, 5/5 strength in all 4 extremities, unable to test sensation due to altered mental status PSYCHIATRIC:[ _agitated, confused, unable to assess further 2/2 AMS Course Vital Signs 05/20/24 05/20/24 05/20/24 00:36 01:00 01:42 Temperature 100.4 F H Pulse Rate 112 H Respiratory 24 Rate Blood Pressure 105/74 O2 Sat by Pulse 95 Oximetry Fraction of 100 100 Inspired Oxygen (FIO2) 05/20/24 05/20/24 05/20/24 02:11 02:55 03:45 Temperature 96.4 F L Pulse Rate 75 73 Respiratory 18 18 Rate Blood Pressure 80/56 84/56 O2 Sat by Pulse 98 99 Oximetry Fraction of 50 Inspired Oxygen (FIO2) 05/20/24 05/20/24 05/20/24 04:03 04:31 04:45 Temperature 96.1 F L Pulse Rate 73 76 Respiratory 18 18 Rate Blood Pressure 114/80 113/81 O2 Sat by Pulse 100 100 Oximetry Fraction of 50 Inspired Oxygen (FIO2) 05/20/24 05/20/24 05/20/24 05:17 05:42 05:50 Temperature 96.4 F L 96.8 F L Pulse Rate 79 82 Respiratory 18 18 Rate Blood Pressure 95/64 103/66 O2 Sat by Pulse 100 99 Oximetry Fraction of 40 Inspired Oxygen (FIO2) 05/20/24 05/20/24 05/20/24 06:04 06:31 07:01 Temperature 97.2 F L 97.3 F L 97.7 F Pulse Rate 90 83 Respiratory 18 18 Rate Blood Pressure 121/81 90/62 O2 Sat by Pulse 98 98 Oximetry Fraction of Inspired Oxygen (FIO2) 05/20/24 05/20/24 05/20/24 07:10 07:26 08:05 Temperature 97.7 F 97.5 F L Pulse Rate 83 80 80 Respiratory 18 18 20 Rate Blood Pressure 83/59 98/66 123/98 O2 Sat by Pulse 98 97 98 Oximetry Fraction of Inspired Oxygen (FIO2) Procedures - Intubation Sedative: Etomidate Mg Given: 20 Paralytic: Succinylcholine Laryngoscope: Eris Size: 4 ET Tube Size: 8 ET Tube Uncuffed: Yes Tube Secured Depth (cm): 26 Tube Secured Location: teeth Tube Placement Confirmation: visualized tube passing through cords, equal breath sounds bilaterally, no breath sounds over epigastrium, confirmation by capnometry Patient Tolerated Procedure: well Additional Comments: Reviewed chest x-ray obtained after intubation, showed ET tube in appropriate position Medical Decision Making - Medical Decision Making Was pt. sent in by a medical professional or institution (, PA, SECURITIES DEALER, urgent care, hospital, or [place] health care facility...) When possible be specific @ -No Did you speak to anyone other than the patient for history (EMS, parent, family, police, friend...)? What history was obtained from this source Spoke with EMS, later spoke with patient's daughter and who provided fur ther history Did you review nursing and triage notes (agree or disagree)? Why? @ -I reviewed and agree with nursing and triage notes Were old charts reviewed (outside hosp., previous admission, EMS record, old EKG, old radiological studies, urgent care reports/EKG's, [place] health [facility] facility records)? 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 Cardiac cath was completed during this admission which showed "stable coronary artery disease" Differential Diagnosis (chest pain, altered mental status, abdominal pain women, abdominal pain men, vaginal bleeding, weakness, fever, dyspnea, syncope, headache, dizziness, GI bleed, back pain, seizure, CVA, palpatations, mental h ealth, musculoskeletal)? @Differential Altered Mental Status: Hypoglycemia, DKA, hypercapnia, ETOH, overdose,, trauma, myxedema coma, HTN encephalopathy, infection, encephalitis, intercranial hemorrhage, hepatic encephalopathy, Seizure, NSTEMI/ ACS this is not meant to be an all-inclusive list EKG interpreted by me (3pts min.). @ -EKG performed at 00:57; sinus tachycardia, rate 101 bpm, ND interval 186 ms, QRS duration 99 ms, QT/QTc 383/441 ms, normal axis, no STEMI, no obvoius ST depression Repeat EKG performed at 2:45 AM Sinus rhythm, rate 75 bpm, ND interval 195 ms, QRS duration 93 ms, QT/QTc 475/504 ms, normal axis, prolonged QT interval noted, compared to EKG performed on arrival, no new ST elevations or depressions when compared; IV magnesium, ordered for prolonged QT X-rays interpreted by me (1pt min.). @ -Appropriately positioned, no pneumothorax, pelvis x-ray without evidence of fracture or dislocation CT interpreted by me (1pt min.). @ -On CT brain I see no evidence of hemorrhage or mass effect, CT C-spine showed no evidence of fracture or malalignment, CT chest abdomen pelvis did not appear to show any evidence of perforation, hemorrhage, no pneumothorax U/S interpreted by me (1pt. min.). @ -None done What testing was considered but not performed or refused? (CT, X-rays, U/S, labs)? Why? @ -None What meds were considered but not given or refused? Why? @ - Did you discuss the management of the patient with other professionals (professionals i.e. , PA, SECURITIES DEALER, lab, RT, psych nurse, hospice social worker, manager dish, teacher, staff electronic warfare officer, patient case manager)? Give summary @Discussed case with Dr. Mackay, as patient initially activated as level 1 trauma due to altered mental status with possible head trauma from fall; Dr. Mackay kindly came to bedside and assisted in evaluation of patient; ultimately no traumatic injury was discovered so did not require admission to trauma service; discussed case with Dr. Olvera, neurology, patient does not need to be transferred for cEEG, will see patient in the morning Was smoking cessation discussed for >3mins.? @ -No Was critical care preformed (if so, how long)? @ Yes, 75 minutes Were there social determinants of health that impacted care today? How? (Homelessness, low income, unemployed, alcoholism, drug addiction, transporta tion, low edu. Level, literacy, decrease access to med. care, long term, rehab)? @ -No Was there de-escalation of care discussed even if they declined (Discuss DNR or withdrawal of care, Hospice)? @ -No What co-morbidities impacted this encounter? (DM, HTN, Smoking, COPD, CAD, Cancer, CVA, ARF, Chemo, Hep., AIDS, mental health diagnosis, sleep apnea, morbid obesity)? @ -CAD Was patient admitted / discharged? Hospital course, mention meds given and route, prescriptions, significant lab abnormalities, going to OR and other pertinent info. @ -Hospital course Patient is a 64-year-old with a past medical history of CAD on blood thinners, unknown other medical history presenting via EMS for altered mental status. Patient seen and assessed on arrival. On assessment patient laying on his side, when moved to bed begins pulling off cords and monitoring equipment. Briefly opens eyes to voice. Unable to redirect. Confused, unable to answer questions, does appear to look at me when I speak his name, moves all extremities. No facial droop. PERRL. Head is atraumatic. As it was unclear whether patient altered 2/2 post ictal state or head trauma and possible intracranial bleed, the decision was made to intubate the patient as he would not be able to stay still for essential imaging or interventions to r/o traumatic intracranial injury or other acute process. Patient intubated without difficulty. Due to fall and possible head trauma, as well as altered mental status, GCS 8-9, level 1 trauma activated. Discussed case with Dr. Mackay, who arrived to bedside. CXR obtained as well as pelvis XR which did not appear to show any apparent pneumothorax or fracture. Bedside FAST exam was performed without evidence of intra-abdominal free fluid. Patient transferred to CT scanner for further imaging. Patient sedated with fentanyl and propofol. Imaging reviewed and did not appear to show any evidence of intracranial hemorrhage or other obvious acute process. Proceeded with remainder of altered mental status workup. Top considerations for patient's presenting signs and symptoms today include infectious etiology, seizure, NSTEMI, did include intracranial hemorrhage or intracranial infection however CT brain showed no hemorrhage, abscess or mass. Patient did not appear to have focal deficits on exam, so CTA was not persued. Rectal temp on arrival 100.4, blood cultures, cefepime, lactic ordered. Patient's and daughter later arrived at bedside, stated that the patient was vomiting throughout the day yesterday and then this evening was heard to be walking to the toilet when they heard him fall. Patient's daughter walked out to find him shaking on the ground. They thought possibly look like a seizure and patient has no history of seizures. Patient had no signs of head trauma for them but was altered and then combative on EMS arrival. Pt's is concerned because patient had had multiple episodes of emesis similar to today, prior to when he was hospitalized for an NSTEMI. Initial troponin elevated 0.072, initial EKG did not show STEMI, however due to elevated troponin I repeated his EKG. Findings as above. No evolving changes to indicate STEMI/no new ST elevations or depressions. Suspect elevated troponin could also be secondary to type II ischemia. I did initiate patient on heparin due to elevated troponin, if patient did seize mine captain, could potentially be caused by cardiac etiology, and due to history provided by family. Patient has no external signs of head trauma, and CT brain negative for hemorrhage, so I feel benefit of heparin at this point outweighs risk of administration. Discussed this plan with patient's at bedside who is in agreement with plan. Lactic 9.5, increasing suspicion that patient did have a seizure mine captain. UDS positive for benzodiazepines and opioids which were administered to the patient here however additionally positive for marijuana. Blood alcohol less than 10. CBC significant for white blood cell count of 13.5.Urinalysis showed 2+ protein, 2+ glucose, 1+ ketones, large amount of blood, greater than 182 red blood ce lls, 8 white blood cells, rare bacteria, hyaline casts rare mucus and rare yeast CT abdomen pelvis ultimately read with significant findings of no free intraperitoneal air, free fluid or acute fracture, noted "diffuse fatty hepatic filtration, splenomegaly, 10 mm nonobstructive calculus in the mildly dilated right renal pelvis, abnormal wall thickening of the sigmoid colon likely from chronic diverticulitis though differential diagnosis includes malignancy follow- up with colonoscopy as clinically appropriate". Repeat troponin 0.092. Case discussed with Dr. Olvera, to ensure patient would not require transfer for continuous EEG. Dr. Olvera states patient does not need to be transferred for continuous EEG. Will see patient on consult. Discussed case with Javi, Critical care [place]. Kindly evaluated patient, will be admitted to ICU. Discussed case with Dr. Godinez, accepts for admission. Patient admitted in stable but guarded condition. Undiagnosed new problem with uncertain prognosis? @ -Yes Drug Therapy requiring intensive monitoring for toxicity (Heparin, Nitro, Insulin, Cardizem)? @ -Yes, heparin Were any procedures done? @ -[Intubation Diagnosis/symptom? @ -Acute encephalopathy, seizure, NSTEMI Acute, or Chronic, or Acute on Chronic? @Acute Uncomplicated (without systemic symptoms) or Complicated (systemic symptoms)? @ -Complicated Side effects of treatment? @ -No Exacerbation, Progression, or Severe Exacerbation? @ -No Poses a threat to life or bodily function? How? (Chest pain, [place], [place], pneumonia, PE, COPD, DKA, ARF, appy, cholecystitis, CVA, Diverticulitis, Homicidal, Suicidal, threat to staff... and all critical care pts) @ -Yes - Lab Data Result diagrams: 05/20/24 00:45 05/20/24 00:45 Lab Results 05/20/24 05/20/24 05/20/24 Range/Units 00:45 00:45 00:45 WBC 13.5 H (3.8-10.6) k/uL RBC 5.31 (4.30-5.90) m/uL Hgb 17.0 (13.0-17.5) gm/dL Hct 52.7 (39.0-53.0) % MCV 99.2 (80.0-100.0) fL MCH 32.0 (25.0-35.0) pg MCHC 32.3 (31.0-37.0) g/dL RDW 13.3 (11.5-15.5) % Plt Count 123 L (150-450) k/uL MPV 8.1 Neutrophils % 88 % Lymphocytes % 7 % Monocytes % 5 % Eosinophils % 0 % Basophils % 0 % Neutrophils # 11.8 H (1.3-7.7) k/uL Lymphocytes # 0.9 L (1.0-4.8) k/uL Monocytes # 0.6 (0-1.0) k/uL Eosinophils # 0.0 (0-0.7) k/uL Basophils # 0.0 (0-0.2) k/uL PT 12.6 H (10.0-12.5) sec INR 1.2 H (<1.2) APTT 25.9 (22.0-30.0) sec Sample Site ABG pH (7.35-7.45) ABG pCO2 (35-45) mmHg ABG pO2 (83-108) mmHg ABG HCO3 (21-25) mmol/L ABG Total CO2 (19-24) mmol/L ABG O2 Saturation (94-97) % ABG Base Excess mmol/L Hakan Test FiO2 % Sodium 137 (137-145) mmol/L Potassium 4.2 (3.5-5.1) mmol/L Chloride 105 (98-107) mmol/L Carbon Dioxide 12 L (22-30) mmol/L Anion Gap 20 mmol/L BUN 28 H (9-20) mg/dL Creatinine 0.80 (0.66-1.25) mg/dL Est GFR (CKD-EPI)AfAm >90 (>60 ml/min/1.73 sqM) Est GFR (CKD-EPI)NonAf >90 (>60 ml/min/1.73 sqM) Glucose 144 H (74-99) mg/dL Lactic Ac Sepsis Rflx Plasma Lactic Acid Saurabh (0.7-2.0) mmol/L Calcium 9.3 (8.4-10.2) mg/dL Total Bilirubin 2.4 H (0.2-1.3) mg/dL AST 54 (17-59) U/L ALT 65 H (4-49) U/L Alkaline Phosphatase 124 (38-126) U/L Creatine Kinase 164 (55-170) U/L Troponin I (0.000-0.034) ng/mL Total Protein 7.7 (6.3-8.2) g/dL Albumin 4.3 (3.5-5.0) g/dL Urine Color Urine Appearance (Clear) Urine pH (5.0-8.0) Ur Specific [place] (1.001-1.035) Urine Protein (Negative) Urine Glucose (UA) (Negative) Urine Ketones (Negative) Urine Blood (Negative) Urine Nitrite (Negative) Urine Bilirubin (Negative) Urine Urobilinogen (<2.0) mg/dL Ur Leukocyte Esterase (Negative) Urine RBC (0-5) /hpf Urine WBC (0-5) /hpf Ur Squamous Epith Cells (0-4) /hpf Urine Bacteria (None) /hpf Hyaline Casts (0-2) /lpf Urine Mucus (None) /hpf Urine Yeast (Budding) (None) /hpf Urine Opiates Screen (NotDetected) Ur Oxycodone Screen (NotDetected) Urine Methadone Screen (NotDetected) Ur Barbiturates Screen (NotDetected) U Tricyclic Antidepress (NotDetected) Ur Phencyclidine Scrn (NotDetected) Ur Amphetamines Screen (NotDetected) U Methamphetamines Scrn (NotDetected) U Benzodiazepines Scrn (NotDetected) Urine Cocaine Screen (NotDetected) U Marijuana (THC) Screen (NotDetected) Serum Alcohol <10 mg/dL Blood Type Blood Type Recheck Bld Type Recheck Status Antibody Screen Spec Expiration Date 05/20/24 05/20/24 05/20/24 Range/Units 00:45 00:45 00:45 WBC (3.8-10.6) k/uL RBC (4.30-5.90) m/uL Hgb (13.0-17.5) gm/dL Hct (39.0-53.0) % MCV (80.0-100.0) fL MCH (25.0-35.0) pg MCHC (31.0-37.0) g/dL RDW (11.5-15.5) % Plt Count (150-450) k/uL MPV Neutrophils % % Lymphocytes % % Monocytes % % Eosinophils % % Basophils % % Neutrophils # (1.3-7.7) k/uL Lymphocytes # (1.0-4.8) k/uL Monocytes # (0-1.0) k/uL Eosinophils # (0-0.7) k/uL Basophils # (0-0.2) k/uL PT (10.0-12.5) sec INR (<1.2) APTT (22.0-30.0) sec Sample Site ABG pH (7.35-7.45) ABG pCO2 (35-45) mmHg ABG pO2 (83-108) mmHg ABG HCO3 (21-25) mmol/L ABG Total CO2 (19-24) mmol/L ABG O2 Saturation (94-97) % ABG Base Excess mmol/L Hakan Test FiO2 % Sodium (137-145) mmol/L Potassium (3.5-5.1) mmol/L Chloride (98-107) mmol/L Carbon Dioxide (22-30) mmol/L Anion Gap mmol/L BUN (9-20) mg/dL Creatinine (0.66-1.25) mg/dL Est GFR (CKD-EPI)AfAm (>60 ml/min/1.73 sqM) Est GFR (CKD-EPI)NonAf (>60 ml/min/1.73 sqM) Glucose (74-99) mg/dL Lactic Ac Sepsis Rflx Plasma Lactic Acid Saurabh 9.5 H* (0.7-2.0) mmol/L Calcium (8.4-10.2) mg/dL Total Bilirubin (0.2-1.3) mg/dL AST (17-59) U/L ALT (4-49) U/L Alkaline Phosphatase (38-126) U/L Creatine Kinase (55-170) U/L Troponin I 0.070 H* (0.000-0.034) ng/mL Total Protein (6.3-8.2) g/dL Albumin (3.5-5.0) g/dL Urine Color Urine Appearance (Clear) Urine pH (5.0-8.0) Ur Specific [place] (1.001-1.035) Urine Protein (Negative) Urine Glucose (UA) (Negative) Urine Ketones (Negative) Urine Blood (Negative) Urine Nitrite (Negative) Urine Bilirubin (Negative) Urine Urobilinogen (<2.0) mg/dL Ur Leukocyte Esterase (Negative) Urine RBC (0-5) /hpf Urine WBC (0-5) /hpf Ur Squamous Epith Cells (0-4) /hpf Urine Bacteria (None) /hpf Hyaline Casts (0-2) /lpf Urine Mucus (None) /hpf Urine Yeast (Budding) (None) /hpf Urine Opiates Screen (NotDetected) Ur Oxycodone Screen (NotDetected) Urine Methadone Screen (NotDetected) Ur Barbiturates Screen (NotDetected) U Tricyclic Antidepress (NotDetected) Ur Phencyclidine Scrn (NotDetected) Ur Amphetamines Screen (NotDetected) U Methamphetamines Scrn (NotDetected) U Benzodiazepines Scrn (NotDetected) Urine Cocaine Screen (NotDetected) U Marijuana (THC) Screen (NotDetected) Serum Alcohol mg/dL Blood Type O Positive Blood Type Recheck O Pos Bld Type Recheck Status No Antibody Screen NEGATIVE Spec Expiration Date 05/23/2024234405/20/24 05/20/24 05/20/24 Range/Units 01:03 01:03 01:46 WBC (3.8-10.6) k/uL RBC (4.30-5.90) m/uL Hgb (13.0-17.5) gm/dL Hct (39.0-53.0) % MCV (80.0-100.0) fL MCH (25.0-35.0) pg MCHC (31.0-37.0) g/dL RDW (11.5-15.5) % Plt Count (150-450) k/uL MPV Neutrophils % % Lymphocytes % % Monocytes % % Eosinophils % % Basophils % % Neutrophils # (1.3-7.7) k/uL Lymphocytes # (1.0-4.8) k/uL Monocytes # (0-1.0) k/uL Eosinophils # (0-0.7) k/uL Basophils # (0-0.2) k/uL PT (10.0-12.5) sec INR (<1.2) APTT (22.0-30.0) sec Sample Site ABG pH (7.35-7.45) ABG pCO2 (35-45) mmHg ABG pO2 (83-108) mmHg ABG HCO3 (21-25) mmol/L ABG Total CO2 (19-24) mmol/L ABG O2 Saturation (94-97) % ABG Base Excess mmol/L [place]akan Test FiO2 % Sodium (137-145) mmol/L Potassium (3.5-5.1) mmol/L Chloride (98-107) mmol/L Carbon Dioxide (22-30) mmol/L Anion Gap mmol/L BUN (9-20) mg/dL Creatinine (0.66-1.25) mg/dL Est GFR (CKD-EPI)AfAm (>60 ml/min/1.73 sqM) Est GFR (CKD-EPI)NonAf (>60 ml/min/1.73 sqM) Glucose (74-99) mg/dL Lactic Ac Sepsis Rflx Y Plasma Lactic Acid Saurabh (0.7-2.0) mmol/L Calcium (8.4-10.2) mg/dL Total Bilirubin (0.2-1.3) mg/dL AST (17-59) U/L ALT (4-49) U/L Alkaline Phosphatase (38-126) U/L Creatine Kinase (55-170) U/L Troponin I (0.000-0.034) ng/mL Total Protein (6.3-8.2) g/dL Albumin (3.5-5.0) g/dL Urine Color Yellow Urine Appearance Clear (Clear) Urine pH 6.0 (5.0-8.0) Ur Specific [place] 1.020 (1.001-1.035) Urine Protein 2+ H (Negative) Urine Glucose (UA) 2+ H (Negative) Urine Ketones 1+ H (Negative) Urine Blood Large H (Negative) Urine Nitrite Negative (Negative) Urine Bilirubin Negative (Negative) Urine Urobilinogen <2.0 (<2.0) mg/dL Ur Leukocyte Esterase Negative (Negative) Urine RBC >182 H (0-5) /hpf Urine WBC 8 H (0-5) /hpf Ur Squamous Epith Cells <1 (0-4) /hpf Urine Bacteria Rare H (None) /hpf Hyaline Casts 8 H (0-2) /lpf Urine Mucus Rare H (None) /hpf Urine Yeast (Budding) Rare H (None) /hpf Urine Opiates Screen Detected H (NotDetected) Ur Oxycodone Screen Not Detected (NotDetected) Urine Methadone Screen Not Detected (NotDetected) Ur Barbiturates Screen Not Detected (NotDetected) U Tricyclic Antidepress Not Detected (NotDetected) Ur Phencyclidine Scrn Not Detected (NotDetected) Ur Amphetamines Screen Not Detected (NotDetected) U Methamphetamines Scrn Not Detected (NotDetected) U Benzodiazepines Scrn Detected H (NotDetected) Urine Cocaine Screen Not Detected (NotDetected) U Marijuana (THC) Screen Detected H (NotDetected) Serum Alcohol mg/dL Blood Type Blood Type Recheck Bld Type Recheck Status Antibody Screen Spec Expiration Date 05/20/24 Range/Units 01:47 WBC (3.8-10.6) k/uL RBC (4.30-5.90) m/uL Hgb (13.0-17.5) gm/dL Hct (39.0-53.0) % MCV (80.0-100.0) fL MCH (25.0-35.0) pg MCHC (31.0-37.0) g/dL RDW (11.5-15.5) % Plt Count (150-450) k/uL MPV Neutrophils % % Lymphocytes % % Monocytes % % Eosinophils % % Basophils % % Neutrophils # (1.3-7.7) k/uL Lymphocytes # (1.0-4.8) k/uL Monocytes # (0-1.0) k/uL Eosinophils # (0-0.7) k/uL Basophils # (0-0.2) k/uL PT (10.0-12.5) sec INR (<1.2) APTT (22.0-30.0) sec Sample Site Left Brachial ABG pH 7.30 L (7.35-7.45) ABG pCO2 40 (35-45) mmHg ABG pO2 >420 H (83-108) mmHg ABG HCO3 20 L (21-25) mmol/L ABG Total CO2 21 (19-24) mmol/L ABG O2 Saturation 100.2 H (94-97) % ABG Base Excess -6.4 mmol/L Hakan Test Yes FiO2 100 % Sodium (137-145) mmol/L Potassium (3.5-5.1) mmol/L Chloride (98-107) mmol/L Carbon Dioxide (22-30) mmol/L Anion Gap mmol/L BUN (9-20) mg/dL Creatinine (0.66-1.25) mg/dL Est GFR (CKD-EPI)AfAm (>60 ml/min/1.73 sqM) Est GFR (CKD-EPI)NonAf (>60 ml/min/1.73 sqM) Glucose (74-99) mg/dL Lactic Ac Sepsis Rflx Plasma Lactic Acid Saurabh (0.7-2.0) mmol/L Calcium (8.4-10.2) mg/dL Total Bilirubin (0.2-1.3) mg/dL AST (17-59) U/L ALT (4-49) U/L Alkaline Phosphatase (38-126) U/L Creatine Kinase (55-170) U/L Troponin I (0.000-0.034) ng/mL Total Protein (6.3-8.2) g/dL Albumin (3.5-5.0) g/dL Urine Color Urine Appearance (Clear) Urine pH (5.0-8.0) Ur Specific [place] (1.001-1.035) Urine Protein (Negative) Urine Glucose (UA) (Negative) Urine Ketones (Negative) Urine Blood (Negative) Urine Nitrite (Negative) Urine Bilirubin (Negative) Urine Urobilinogen (<2.0) mg/dL Ur Leukocyte Esterase (Negative) Urine RBC (0-5) /hpf Urine WBC (0-5) /hpf Ur Squamous Epith Cells (0-4) /hpf Urine Bacteria (None) /hpf Hyaline Casts (0-2) /lpf Urine Mucus (None) /hpf Urine Yeast (Budding) (None) /hpf Urine Opiates Screen (NotDetected) Ur Oxycodone Screen (NotDetected) Urine Methadone Screen (NotDetected) Ur Barbiturates Screen (NotDetected) U Tricyclic Antidepress (NotDetected) Ur Phencyclidine Scrn (NotDetected) Ur Amphetamines Screen (NotDetected) U Methamphetamines Scrn (NotDetected) U Benzodiazepines Scrn (NotDetected) Urine Cocaine Screen (NotDetected) U Marijuana (THC) Screen (NotDetected) Serum Alcohol mg/dL Blood Type Blood Type Recheck Bld Type Recheck Status Antibody Screen Spec Expiration Date Disposition Clinical Impression: NSTEMI (non-ST elevated myocardial infarction), Seizure, Acute encephalopathy, Fever Disposition: ADMITTED IP TO THIS [facility] Condition: Serious
--- NOTE | 2024-05-20 03:05 | XR ---
EXAM: XR Pelvis, 1 or 2 Views CLINICAL HISTORY: ITS.REASON XR Reason: TRAUMA TECHNIQUE: Frontal view of the pelvis. COMPARISON: None FINDINGS: Portion of the right lateral iliac wing and proximal right femur is excluded from the image. Bones/joints: Diffuse osseous demineralization.. No acute fracture. No dislocation. Moderate bilateral LT>RT hip osteoarthrosis. A postsurgical lower lumbosacral spine. Soft tissues: Unremarkable. Other findings: . A Oakes's catheter in situ. IMPRESSION: No obvious acute fracture or dislocation. Bilateral hip osteoarthrosis. .
[2024-05-20] MEDS: SODIUM CHLORIDE 0.9% 1,000 ML IV ONE (03:07)
[2024-05-20] MEDS: MAGNESIUM SULFATE-D5W PMX 1 GM in DEXTROSE/WATER 1 100ML.BAG IVPB SCH (03:15)
[2024-05-20] MEDS ORDERED: NALOXONE 0.4 MG/ML 1 ML VIAL IV PRN (03:19)
[2024-05-20] MEDS ORDERED: Phosphorus Replacement Protoco 1 EACH MISC MISCELLANE PRN (03:19)
[2024-05-20] MEDS ORDERED: Potassium Replacement Protocol 1 EACH MISC MISCELLANE PRN (03:19)
[2024-05-20] MEDS ORDERED: LORazepam 2 MG/ML INJ IV PRN (03:19)
[2024-05-20] MEDS ORDERED: Magnesium Replacement Protocol 1 EACH MISC MISCELLANE PRN (03:19)
[2024-05-20] MEDS: HEPARIN SOD,PORK IN 0.45% NACL 25,000 UNIT in 0.45% NACL 1 250ML.BAG IV SCH (03:40)
[2024-05-20] MEDS: DEXTROSE 5%-0.45% NACL 1,000 ML IV SCH (03:42)
[2024-05-20 05:45] LABS: ABG Base Excess -3.1 mmol/L; ABG HCO3 22 mmol/L (21-25); ABG Oxygen Saturation 99.4 % (94-97); ABG PCO2 38 mmHg (35-45); ABG PH 7.37 (7.35-7.45); ABG PO2 152 mmHg (83-108); ABG TCO2 23 mmol/L (19-24); Allen Test Performed? Yes
--- NOTE | 2024-05-20 07:47 | P.CNPUL ---
History of Present Illness Consult date: 05/20/24 Requesting physician: Keiko Carroll Reason for consult: other (ICU management) Chief complaint: Fall, altered mental status History of present illness: Patient is a 64-year-old male with past medical history significant for coronary artery disease with previous PCI/stent, syncope, hypertension, hyperlipidemia, among other things. Patient is currently intubated to the mechanical ventilator, unable to provide any information for HPI. Patient presented emergency department early this morning. Apparently, family heard the patient fall from a different room. They found him on the floor shaking with reported seizure-like activity. When EMS arrived patient was confused and combative. Th ey did give 10 mg of IM Versed. On arrival to the emergency department, patient was intubated by the ER provider. He is underwent an extensive workup. CT of the brain and C-spine did not show any acute intracranial hemorrhage, no midline shift or mass effect. No C-spine fracture or subluxation. Apparently, the patient was having nausea and vomiting and fever. A CT of the chest abdomen and pelvis did not show obvious saddle PE. No acute intra-abdominal process. There was some abdominal wall thickening of the sigmoid colon, likely from chronic diverticulitis. Incidentally, a 10 mm nonobstructive calculus seen in the mildly dilated right renal pelvis. Patient remains in the emergency department on my evaluation, in trauma bay 2. Remains intubated mechanical ventilator with current ventilator settings including assist-control, respiratory rate 18, tidal volume 450, FiO2 50%, PEEP of 5. Postintubation ABG includes a PaO2 of greater than 420, pCO2 of 40, and pH of 7.3. This was done on a FiO2 of 100%. He is on propofol currently infusing at 25 mcg/kg/min. Synchronous with current ventilator settings. Fentanyl is also infusing at 2 mcg/kg/h. Heparin infusing per protocol. Patient did have some elevated troponins on presentation of the 0.07 and 0.09 respectively. EKG: Sinus tachycardia, rate 101 bpm, no obvious acute ischemic changes. Body temperature now hypothermic, currently 36 C with Porsha hugger on, heart rate 83 bpm, blood pressure normotensive at 105/71 mmHg, SpO2 98%. CBC: WBC count 13.5, hemoglobin 17, hematocrit 52.7, platelets 123. CMP: Sodium 137, potassium 4.2, chloride 105, serum bicarb 12, BUN 28, creatinine 0.8, glucose 144. Lactic elevated at 9.5. LFTs unremarkable. Patient did have a fever of 100 degrees on arrival to the emergency department. Was given dose of cefepime. UA not very remarkable for infection, rare bacteria. Urine drug screen positive for opiates, benzodiazepines, marijuana. Serum alcohol level less than 10. Patient was loaded with Keppra in the emergency department. No further seizure-like activity noted. Review of Systems ROS unobtainable: due to endotracheal tube Past Medical History Past Medical History: Coronary Artery Disease (CAD), GERD/Reflux, Hypertension, Myocardial Infarction (RI) Additional Past Medical History / Comment(s): headaches, borderline anemic, "low iron", "low WBC's", past acid refux, Last Myocardial Infarction Date:: History of Any Multi-Drug Resistant Organisms: None Reported Past Surgical History: Heart Catheterization With Stent, Hernia Repair, Orthopedic Surgery Additional Past Surgical History / Comment(s): beau knee arthroscopy, beau knee surgery as teen, Past Anesthesia/Blood Transfusion Reactions: No Reported Reaction Date of Last Stent Placement:: 11/12/2022 Past Psychological History: Anxiety Smoking Status: Current every day smoker - Past Family History Father Family Medical History: Cancer Medications and Allergies Home Medications Medication Instructions Recorded Confirmed Type ALPRAZolam [Xanax] 0.5 mg PO BID PRN 04/16/19 05/07/23 History Baclofen [Lioresal] 10 mg PO TID 11/12/22 05/07/23 History Escitalopram [Lexapro] 20 mg PO DAILY 11/12/22 05/07/23 History Metoclopramide [Reglan] 10 mg PO Q6H PRN #20 tab 11/12/22 05/07/23 Rx Aspirin 81 mg PO DAILY tab 11/14/22 05/07/23 Rx Prasugrel [Effient] 10 mg PO DAILY #90 tab 11/14/22 05/07/23 Rx Pantoprazole Sodium [Protonix] 40 mg PO AC-BID PRN 01/14/23 05/07/23 History Acetaminophen Tab [Tylenol] 650 mg PO Q6HR PRN tab 01/15/23 05/07/23 Rx Atorvastatin [Lipitor] 40 mg PO DAILY 04/03/23 05/07/23 History Cyclobenzaprine [Flexeril] 10 mg PO TID PRN 05/07/23 05/07/23 History HYDROcodone/APAP 5-325MG [[place] 1 tab PO BID PRN 05/07/23 05/07/23 History 5-325] HYDROcodone/APAP 5-325MG [[place] 1 tab PO HS 05/07/23 05/07/23 History 5-325] Metoprolol Tartrate [Lopressor] 25 mg PO BID 05/07/23 05/07/23 History Allergies Allergy/AdvReac Type Severity Reaction Status Date / Time No Known Allergies Allergy Verified 05/07/23 20:00 Physical Exam Vitals: Vital Signs Temp Pulse Resp BP Pulse Ox FiO2 05/20/24 05:17 96.4 F L 79 18 95/64 100 05/20/24 04:45 76 18 113/81 100 05/20/24 04:31 96.1 F L 73 18 114/80 100 05/20/24 04:03 50 05/20/24 03:45 96.4 F L 73 18 84/56 99 05/20/24 02:55 75 18 80/56 98 05/20/24 02:11 50 05/20/24 01:42 100 05/20/24 01:00 100 05/20/24 00:36 100.4 F H 112 H 24 105/74 95 Intake and Output 05/19/24 05/19/24 05/20/24 14:59 22:59 06:59 Intake Total 45.326 Balance 45.326 Intake: Intake, IV Titration 45.326 Amount fentaNYL (PF). 1,000 mcg 5.437 In Sodium Chloride 0.9% 80 ml @ 0.5 MCG/KG/HR 4. 35 mls/hr IV .Q23H HENRRY Rx #:[id number] propofoL 1,000 mg In 39.889 Empty Bag 1 bag @ 20 MCG/ KG/MIN 10.44 mls/hr IV . Q9H35M HENRRY Rx#:[id number] Other: Weight 86.999 kg GENERAL EXAM: Sedated, 64-year-old white male, intubated mechanical ventilator, synchronous with set rate. HEAD: Normocephalic and atraumatic EYES: Normal reaction of pupils, equal size. No nystagmus. Nonicteric sclera NOSE: Clear with pink turbinates. THROAT: No erythema or exudates. NECK: No masses, no JVD. CHEST: No chest wall deformity. LUNGS: Equal air entry with no crackles, wheeze, rhonchi or dullness. Intubated to mechanical ventilator, synchronous with set rate, peak pressures 20. CVS: S1 and S2 normal with no audible murmur, regular rhythm. No extra heart sounds ABDOMEN: No hepatosplenomegaly, active bowel sounds, no guarding or rigidity. SPINE: No scoliosis or deformity SKIN: No rashes CENTRAL NERVOUS SYSTEM: Sedated on propofol and fentanyl, RASS -5, no focal deficits, tone is flaccid in all 4 extremities. EXTREMITIES: There is no peripheral edema, clubbing, or cyanosis. Peripheral pulses are intact. Results - Laboratory Findings CBC and BMP: 05/20/24 00:45 05/20/24 00:45 ABG ABG pH 7.30 (7.35-7.45) L 05/20/24 01:47 ABG pCO2 40 mmHg (35-45) 05/20/24 01:47 ABG pO2 >420 mmHg (83-108) H 05/20/24 01:47 ABG O2 Saturation 100.2 % (94-97) H 05/20/24 01:47 PT/INR, D-dimer PT 12.6 sec (10.0-12.5) H 05/20/24 00:45 INR 1.2 (<1.2) H 05/20/24 00:45 Abnormal lab findings: Abnormal Labs 05/20/24 05/20/24 05/20/24 00:45 00:45 00:45 WBC 13.5 H Plt Count 123 L Neutrophils # 11.8 H Lymphocytes # 0.9 L PT 12.6 H INR 1.2 H ABG pH ABG pO2 ABG HCO3 ABG O2 Saturation Carbon Dioxide 12 L BUN 28 H Glucose 144 H Plasma Lactic Acid Saurabh Total Bilirubin 2.4 H ALT 65 H Troponin I Urine Protein Urine Glucose (UA) Urine Ketones Urine Blood Urine RBC Urine WBC Urine Bacteria Hyaline Casts Urine Mucus Urine Yeast (Budding) Urine Opiates Screen U Benzodiazepines Scrn U Marijuana (THC) Screen 05/20/24 05/20/24 05/20/24 00:45 00:45 01:03 WBC Plt Count Neutrophils # Lymphocytes # PT INR ABG pH ABG pO2 ABG HCO3 ABG O2 Saturation Carbon Dioxide BUN Glucose Plasma Lactic Acid Saurabh 9.5 H* Total Bilirubin ALT Troponin I 0.070 H* Urine Protein Urine Glucose (UA) Urine Ketones Urine Blood Urine RBC Urine WBC Urine Bacteria Hyaline Casts Urine Mucus Urine Yeast (Budding) Urine Opiates Screen Detected H U Benzodiazepines Scrn Detected H U Marijuana (THC) Screen Detected H 05/20/24 05/20/24 05/20/24 01:03 01:47 03:43 WBC Plt Count Neutrophils # Lymphocytes # PT INR ABG pH 7.30 L ABG pO2 >420 H ABG HCO3 20 L ABG O2 Saturation 100.2 H Carbon Dioxide BUN Glucose Plasma Lactic Acid Saurabh Total Bilirubin ALT Troponin I 0.092 H* Urine Protein 2+ H Urine Glucose (UA) 2+ H Urine Ketones 1+ H Urine Blood Large H Urine RBC >182 H Urine WBC 8 H Urine Bacteria Rare H Hyaline Casts 8 H Urine Mucus Rare H Urine Yeast (Budding) Rare H Urine Opiates Screen U Benzodiazepines Scrn U Marijuana (THC) Screen - Diagnostic Findings Chest x-ray: image reviewed CT scan - chest: image reviewed Assessment and Plan Assessment: Altered mental status and fall, intubated for airway protection by ER provider on arrival to the emergency department. Possible seizure versus syncopal event Lactic acidosis, possibly secondary to above, improved Acute leukocytosis Mechanical ventilator management, postintubation chest x-ray showing the endotracheal tube above the darrion, orogastric tube traverses into stomach. Elevated troponins, rule out non-ST elevation RI 10 mm nonobstructive right renal calculi History of syncope History of coronary artery disease with previous PCI/stent History of hyperlipidemia History of hypertension Marijuana smoker Plan: Patient's medications, labs, imaging reviewed Continue on mechanical ventilator with current ventilator settings. Wean FiO2 as tolerated Patient currently sedated on combination of propofol and fentanyl. Will DC fentanyl. Wean down sedation to maintain appropriate RASS of 0 to -1 Monitor for further seizure-like activity Obtain EEG Loaded with Skyler in the emergency department Neurology consulted for seizures CT brain and C-spine noted Obtain transthoracic echocardiogram Currently on heparin infusion per protocol Cardiology also consulted Continue to follow, additional recommendations forthcoming. Patient will be transferred to the intensive care unit once bed available. I have personally seen and examined the patient, performed the documentation and the assessment and plan as written. Number of minutes spent on the visit:20 Time with Patient: Greater than 30
--- NOTE | 2024-05-20 08:31 | XR ---
EXAMINATION TYPE: XR chest 1V portable DATE OF EXAM: 05/20/2024 5:48 AM CLINICAL INDICATION: Male, 64 years old with history of Tube placement; [facility] COMPARISON: Chest radiograph from same day. TECHNIQUE: XR chest 1V portable Frontal view of the chest. FINDINGS: Lungs/Pleura: There is no evidence of pleural effusion, focal consolidation, or pneumothorax. Pulmonary vascularity: Unremarkable. Heart/mediastinum: Cardiomediastinal silhouette is unremarkable. Musculoskeletal: No acute osseous pathology. Other findings: None Lines/Tubes: Endotracheal tube with distal tip 3.1 cm above the darrion. Nasogastric tube with its distal tip and side-port projecting under the diaphragm. IMPRESSION: No acute cardiopulmonary support tubes, disease/process. [facility], , 05/20/2024 8:29 AM
--- NOTE | 2024-05-20 08:45 | XR ---
EXAMINATION TYPE: XR chest 1V portable DATE OF EXAM: 05/20/2024 8:41 AM CLINICAL INDICATION: Male, 64 years old with history of OG placement; [facility] COMPARISON: Chest radiographs from 05/20/2024. TECHNIQUE: XR chest 1V portable Frontal view of the chest. FINDINGS: Lungs/Pleura: There is no evidence of pleural effusion, focal consolidation, or pneumothorax. Pulmonary vascularity: Unremarkable. Heart/mediastinum: Cardiomediastinal silhouette is unremarkable. Musculoskeletal: No acute osseous pathology. Other findings: None Lines/Tubes: Endotracheal tube with distal tip 3.5 cm above the darrion. Nasogastric tube with its distal tip and side-port projecting under the diaphragm. IMPRESSION: 1. Orogastric tube in appropriate position. 2. No acute cardiopulmonary disease/process. [facility], , 05/20/2024 8:42 AM
[2024-05-20 09:43] LABS: Basophils % (A) 0 %; Eosinophils % (A) 0 %; HCT 41.4 % (39.0-53.0); HGB 14.2 gm/dL (13.0-17.5); Lymphocytes # (A) 1.4 k/uL (1.0-4.8); Lymphocytes % (A) 12 %; MCH 32.8 pg (25.0-35.0); MCHC 34.2 g/dL (31.0-37.0); MCV 95.9 fL (80.0-100.0); Mean Platelet Volume 8.7; Monocytes # (A) 0.7 k/uL (0-1.0); Monocytes % (A) 6 %; Neutrophils # (A) 8.8 k/uL (1.3-7.7); Neutrophils % (A) 80 %; RBC 4.31 m/uL (4.30-5.90)
[2024-05-20] MEDS: SODIUM CHLORIDE 0.9% 1,000 ML IV SCH (09:43)
[2024-05-20 09:52] LABS: African American GFR (CKD) >90 (>60 ml/min/1.73 sqM); Anion Gap 8 mmol/L; Blood Urea Nitrogen 27 mg/dL (9-20); Calcium 8.1 mg/dL (8.4-10.2); Carbon Dioxide 19 mmol/L (22-30); Chloride 109 mmol/L (98-107); Glucose 102 mg/dL (74-99); Magnesium 2.4 mg/dL (1.6-2.3); Non-African American GFR(CKD) >90 (>60 ml/min/1.73 sqM); Potassium 3.6 mmol/L (3.5-5.1); Sodium 136 mmol/L (137-145)
[2024-05-20] MEDS ORDERED: MIDAZOLAM HCL 50 MG in SODIUM CHLORIDE 0.9% 40 ML IV SCH (10:00)
[2024-05-20 10:15] LABS: Platelet Count 82 k/uL (150-450)
[2024-05-20 10:16] LABS: RBC Morphology Normal
[2024-05-20] MEDS: CHLORHEXIDINE GLUCONATE 15 ML CUP MUCOUS MEM SCH (10:30)
[2024-05-20] MEDS: PANTOPRAZOLE 40 MG/10 ML VIAL IV SCH (10:31)
[2024-05-20] MEDS: POTASSIUM BICARBONATE/CIT AC 20 MEQ TABLET.EFF NG-TUBE SCH (10:31)
--- NOTE | 2024-05-20 14:58 | P.CRDCN ---
History of Present Illness History of present illness: HISTORY OF PRESENTING ILLNESS This is a pleasant 64-year-old with past medical history significant for CAD status post PCI of the RCA October 2022, chronic pain, hyperlipidemia, depression, anxiety who presents secondary to epigastric discomfort, nausea, vomiting, diaphoresis. Patient currently intubated and sedated history is supplied by family members. Family states he had been feeling fine and then within a few hours started having nausea, upset stomach and breaking out in a profuse sweat. They were concerned secondary to some of his symptoms of sweating been similar to his prior cardiac arrest and stenting. He had been doing fairly well and has been over 12 months since his stenting however apparently had been placed on Plavix and aspirin discontinued in the past.. He follows in the office with Dr Robles. He was combative in the emergency department and he required Ativan and became lethargic and required intubation. His lactic acid was significantly elevated at 9 and blood pressure borderline in the 80s over 50s additionally had borderline fever with temperature 100.4. Currently he is intubated and sedated on ventilator. Blood work White blood cell count 13.5, creatinine 0.8, lactic acid 9.5 down to 2.4, troponin 0.07, 0.09, 0.08. EKG showed normal sinus rhythm with no significant ST or T-wave abnormalities. REVIEW OF SYSTEMS At the time of my exam: Unable to obtain secondary patient intubated and sedated PHYSICAL EXAMINATION Vital signs reviewed. CONSTITUTIONAL: No apparent distress, intubated and sedated HEENT: Head is normocephalic. Pupils are equal, round. Sclerae anicteric. Mucous membranes of the mouth are moist. No JVD. No carotid bruit. CHEST EXAMINATION: Lungs are clear to auscultation. No chest wall tenderness is noted on palpation or with deep breathing. HEART EXAMINATION: Regular rate and rhythm. S1, S2 heard. No murmurs, gallops or rub. ABDOMEN: Soft, nontender. Positive bowel sounds. EXTREMITIES: 2+ peripheral pulses, no lower extremity edema and no calf tenderness. NEUROLOGIC EXAMINATION: Patient is intubated and sedated ASSESSMENT Non-STEMI, likely type II mechanism related to septic shock Sepsis with fever, tachycardia, white blood cell count and nausea and vomiting Septic shock Lactic acidosis CAD status post RCA stenting in 2022 Hypertension Hyperlipidemia PLAN Patient with main presentation of nausea, vomiting, fevers and diaphoresis. Preliminary report of echo with ejection fraction 60-65% and no significant valvular disease. Presentation mainly appears related to sepsis. Continue with current supportive care. Stop heparin drip. Continue Plavix for now however obtain office notes and verified patient can come off of this or reason for Plavix as opposed aspirin. Past Medical History Past Medical History: Coronary Artery Disease (CAD), GERD/Reflux, Hypertension, Myocardial Infarction (HI) Additional Past Medical History / Comment(s): headaches, borderline anemic, "low iron", "low WBC's", past acid refux, Last Myocardial Infarction Date:: History of Any Multi-Drug Resistant Organisms: None Reported Past Surgical History: Heart Catheterization With Stent, Hernia Repair, Orthopedic Surgery Additional Past Surgical History / Comment(s): beau knee arthroscopy, beau knee surgery as teen, Past Anesthesia/Blood Transfusion Reactions: No Reported Reaction Date of Last Stent Placement:: 11/12/2022 Past Psychological History: Anxiety Smoking Status: Current every day smoker - Past Family History Father Family Medical History: Cancer Mother Family Medical History: Dementia Medications and Allergies Home Medications Medication Instructions Recorded Confirmed Type ALPRAZolam [Xanax] 0.5 mg PO BID 04/16/19 05/20/24 History Baclofen [Lioresal] 10 mg PO TID 11/12/22 05/20/24 History Escitalopram [Lexapro] 20 mg PO DAILY 11/12/22 05/20/24 History Atorvastatin [Lipitor] 40 mg PO DAILY 04/03/23 05/20/24 History HYDROcodone/APAP 5-325MG [[place] 1 tab PO Q12H PRN 05/07/23 05/20/24 History 5-325] Clopidogrel [Plavix] 75 mg PO DAILY 05/20/24 05/20/24 History Metoprolol Tartrate [Lopressor] 25 mg PO BID 05/20/24 05/20/24 History Allergies Allergy/AdvReac Type Severity Reaction Status Date / Time No Known Allergies Allergy Verified 05/07/23 20:00 Physical Exam Vitals: Vital Signs Temp Pulse Resp BP Pulse Ox FiO2 05/20/24 14:00 72 18 98 05/20/24 13:45 73 18 92/64 98 05/20/24 13:30 72 18 88/68 97 05/20/24 13:15 75 18 106/72 97 05/20/24 13:00 79 18 113/75 100 05/20/24 12:45 72 18 103/74 100 05/20/24 12:30 73 18 104/74 100 05/20/24 12:15 71 18 114/80 100 05/20/24 12:00 98.0 F 68 18 124/92 100 40 05/20/24 11:45 70 18 109/73 99 05/20/24 11:30 70 18 139/88 100 05/20/24 11:29 40 05/20/24 11:15 82 30 H 116/84 87 L 05/20/24 11:00 68 18 117/76 100 05/20/24 10:45 66 18 115/84 100 05/20/24 10:30 67 18 117/82 100 05/20/24 10:15 67 18 100/75 98 05/20/24 10:00 70 18 92/65 96 05/20/24 09:45 72 18 97 05/20/24 09:38 72 18 87/64 96 05/20/24 09:20 72 18 82/58 96 05/20/24 09:15 72 18 86/62 96 05/20/24 09:11 40 05/20/24 09:10 72 18 89/58 96 05/20/24 09:05 72 18 93/66 96 05/20/24 09:00 40 05/20/24 08:55 97.9 F 75 18 140/78 96 40 05/20/24 08:50 97.7 F 82 18 102/70 98 05/20/24 08:32 36.4 F L 75 18 102/67 96 05/20/24 08:25 76 18 126/85 96 05/20/24 08:20 80 18 105/71 97 05/20/24 08:09 81 18 120/81 98 05/20/24 08:08 40 05/20/24 08:05 97.5 F L 80 20 123/98 98 05/20/24 07:26 97.7 F 80 18 98/66 97 05/20/24 07:10 83 18 83/59 98 05/20/24 07:01 97.7 F 83 18 90/62 98 05/20/24 06:31 97.3 F L 90 18 121/81 98 05/20/24 06:04 97.2 F L 05/20/24 05:50 40 05/20/24 05:42 96.8 F L 82 18 103/66 99 05/20/24 05:17 96.4 F L 79 18 95/64 100 05/20/24 04:45 76 18 113/81 100 05/20/24 04:31 96.1 F L 73 18 114/80 100 05/20/24 04:03 50 05/20/24 03:45 96.4 F L 73 18 84/56 99 05/20/24 02:55 75 18 80/56 98 05/20/24 02:11 50 05/20/24 01:42 100 05/20/24 01:00 100 05/20/24 00:36 100.4 F H 112 H 24 105/74 95 Intake and Output 05/19/24 05/20/24 05/20/24 22:59 06:59 14:59 Intake Total 73.818 515.311 Output Total 395 Balance 73.818 120.311 Intake: Intake, IV Titration 73.818 515.311 Amount Heparin Sod,Pork in 0.45% 40 NaCl 25,000 unit In 0.45 % NaCl 1 250ml.bag @ 11. 494 UNITS/KG/HR 10 mls/hr IV .Q24H [facility]RR[facility] Rx#: [id number] Sodium Chloride 0.9% 1, 375 000 ml @ 75 mls/hr IV . [id number] [facility] Rx#:[id number] fentaNYL (PF). 1,000 mcg 5.437 62.858 In Sodium Chloride 0.9% 80 ml @ 0.5 MCG/KG/HR 4. 35 mls/hr IV .Q23H [facility] Rx #:[id number] propofoL 1,000 mg In 19.575 Empty Bag 1 bag @ 15 MCG/ KG/MIN 7.83 mls/hr IV . [id number] [facility] Rx#:[id number] propofoL 1,000 mg In 68.381 17.878 Empty Bag 1 bag @ 20 MCG/ KG/MIN 10.44 mls/hr IV . [id number] [facility] Rx#:[id number] Output: Urine 395 Other: Voiding Method Indwelling Catheter Weight 86.999 kg Results 05/20/24 09:09 05/20/24 09:09 Cardiac Enzymes 05/20/24 05/20/24 05/20/24 Range/Units 00:45 00:45 03:43 AST 54 (17-59) U/L Troponin I 0.070 H* 0.092 H* (0.000-0.034) ng/mL 05/20/24 Range/Units 09:09 AST (17-59) U/L Troponin I 0.086 H* (0.000-0.034) ng/mL Coagulation 05/20/24 05/20/24 Range/Units 00:45 09:09 PT 12.6 H (10.0-12.5) sec APTT 25.9 45.8 H (22.0-30.0) sec CBC 05/20/24 05/20/24 Range/Units 00:45 09:09 WBC 13.5 H 11.0 H (3.8-10.6) k/uL RBC 5.31 4.31 (4.30-5.90) m/uL Hgb 17.0 14.2 (13.0-17.5) gm/dL Hct 52.7 41.4 (39.0-53.0) % Plt Count 123 L 82 L (150-450) k/uL Comprehensive Metabolic Panel 05/20/24 05/20/24 Range/Units 00:45 09:09 Sodium 137 136 L (137-145) mmol/L Potassium 4.2 3.6 (3.5-5.1) mmol/L Chloride 105 109 H (98-107) mmol/L Carbon Dioxide 12 L 19 L (22-30) mmol/L BUN 28 H 27 H (9-20) mg/dL Creatinine 0.80 0.65 L (0.66-1.25) mg/dL Glucose 144 H 102 H (74-99) mg/dL Calcium 9.3 8.1 L (8.4-10.2) mg/dL AST 54 (17-59) U/L ALT 65 H (4-49) U/L Alkaline Phosphatase 124 (38-126) U/L Total Protein 7.7 (6.3-8.2) g/dL Albumin 4.3 (3.5-5.0) g/dL Current Medications Generic Name Dose Route Start Last Admin Trade Name Freq PRN Reason Stop Dose Admin Chlorhexidine Gluconate 15 ml 05/20/24 09:00 05/20/24 10:30 Chlorhexidine Gluconate 15 Ml Cup MUCOUS MEM 15 ml BID HENRRY Administration Propofol 1,000 mg/ IV Solution 100 mls @ 7.83 mls/hr 05/20/24 01:15 05/20/24 10:30 IV 50 mcg/kg/min .[id number] [facility]RR[facility] 26.1 mls/hr Administration Protocol 15 MCG/KG/MIN Sodium Chloride 1,000 mls @ 75 mls/hr 05/20/24 07:45 05/20/24 09:43 Saline 0.9% IV 75 mls/hr .[id number] [facility] Administration Ampicillin Sodium/Sulbactam 50 mls @ 100 mls/hr 05/20/24 16:00 Sodium 1.5 gm/ Sodium Chloride IVPB Q8HR [facility]ENRRY Protocol Midazolam HCl 200 mg/ Sodium 100 mls @ 0.5 mls/hr 05/20/24 10:30 Chloride IV .Q24H [facility]ENRRY Protocol 1 MG/HR Lorazepam 1 mg 05/20/24 03:19 Lorazepam 2 Mg/Ml Inj IV Q6HR PRN Anxiety Miscellaneous Information 1 each 05/20/24 03:19 Potassium Replacement Protocol 1 Each Misc MISCELLANE DAILY PRN Per Protocol Miscellaneous Information 1 each 05/20/24 03:19 Magnesium Replacement Protocol 1 Each Misc MISCELLANE DAILY PRN Per Protocol Protocol Miscellaneous Information 1 each 05/20/24 03:19 Phosphorus Replacement Protoco 1 Each Misc MISCELLANE DAILY PRN Per Protocol Protocol Naloxone HCl 0.2 mg 05/20/24 03:19 Naloxone 0.4 Mg/Ml 1 Ml Vial IV Q2M PRN Opioid Reversal Pantoprazole Sodium 40 mg 05/20/24 09:00 05/20/24 10:31 Pantoprazole 40 Mg/10 Ml Vial IV 40 mg DAILY HENRRY Administration Intake and Output 05/19/24 05/20/24 05/20/24 22:59 06:59 14:59 Intake Total 73.818 515.311 Output Total 395 Balance 73.818 120.311 Intake: Intake, IV Titration 73.818 515.311 Amount Heparin Sod,Pork in 0.45% 40 NaCl 25,000 unit In 0.45 % NaCl 1 250ml.bag @ 11. 494 UNITS/KG/HR 10 mls/hr IV .Q24H [facility]ENRRY Rx#: [id number] Sodium Chloride 0.9% 1, 375 000 ml @ 75 mls/hr IV . [id number] [facility] Rx#:[id number] fentaNYL (PF). 1,000 mcg 5.437 62.858 In Sodium Chloride 0.9% 80 ml @ 0.5 MCG/KG/HR 4. 35 mls/hr IV .Q23H [facility] Rx #:[id number] propofoL 1,000 mg In 19.575 Empty Bag 1 bag @ 15 MCG/ KG/MIN 7.83 mls/hr IV . [id number] [facility] Rx#:[id number] propofoL 1,000 mg In 68.381 17.878 Empty Bag 1 bag @ 20 MCG/ KG/MIN 10.44 mls/hr IV . Q9H35M [facility] Rx#:[id number] Output: Urine 395 Other: Voiding Method Indwelling Catheter Weight 86.999 kg 05/20/24 09:09 05/20/24 09:09
[2024-05-20] MEDS: MIDAZOLAM HCL 200 MG in SODIUM CHLORIDE 0.9% 60 ML IV SCH (15:20)
[2024-05-20] MEDS: AMPICILLIN-SULBACTAM 1.5 GM in SODIUM CHLORIDE 0.9% 50 ML IVPB SCH (15:49)
--- NOTE | 2024-05-20 17:17 | CA ---
Transthoracic Echo Report Name: Hank Moon Age: 64 Gender: M : 1960 Exam Date: 05/20/2024 09:42 Exam Location: [facility] Ht (in): 75 Wt (lb): 191 Ordering Physician: Cody Munoz Attending/Referring Phys: Driver Medic Loriane Lea RDCS Procedure CPT: Indications: possible syncopal event Cardiac Hx: Technical Quality: Technically difficult study Contrast 1: Definity Total Dose (mL): 2 Contrast 2: Total Dose (mL): MEASUREMENTS (Male / Female) Normal Values 2D ECHO LV Diastolic Volume MOD BP 62.2 cm??? 67 - 155 / 56 - 104 cm??? LV Systolic Volume MOD BP 20.6 cm??? 22 - 58 / 19 - 49 cm??? LV Ejection Fraction MOD BP 66.8 % >= 55 % LV Cardiac Index MOD BP 1377.0 cm???/min???m??? LV Diastolic Volume MOD 4C 68.8 cm??? LV Systolic Volume MOD 4C 23.1 cm??? LV Ejection Fraction MOD 4C 66.4 % LV Cardiac Index MOD 4C 1514.3 cm???/min???m??? LV Diastolic Length 4C 8.2 cm LV Systolic Length 4C 7.1 cm LV Diastolic Volume MOD 2C 55.6 cm??? LV Systolic Volume MOD 2C 16.7 cm??? LV Ejection Fraction MOD 2C 69.9 % LV Cardiac Index MOD 2C 1287.8 cm???/min???m??? LV Diastolic Length 2C 8.3 cm LV Systolic Length 2C 6.4 cm LA Volume 30.2 cm??? 18 - 58 / 22 - 52 cm??? LA Volume Index 14.1 cm???/m??? 16 - 28 cm???/m??? DOPPLER AV Peak Velocity 132.8 cm/s AV Peak Gradient 7.1 mmHg AV Mean Velocity 102.3 cm/s AV Mean Gradient 4.4 mmHg AV Velocity Time Integral 22.7 cm LVOT Peak Velocity 106.6 cm/s LVOT Peak Gradient 4.5 mmHg LVOT Velocity Time Integral 17.8 cm MV Area PHT 2.4 cm??? Mitral E Point Velocity 53.2 cm/s Mitral A Point Velocity 55.3 cm/s Mitral E to A Ratio 1.0 MV Deceleration Time 314.2 ms FINDINGS Left Ventricle Left ventricular ejection fraction is estimated at 60-65 %. Left ventricular cavity size normal. No obvious regional wall motion abnormalities. Right Ventricle Right ventricle not well visualized. Unable to estimate the right ventricular systolic pressure. Right Atrium Right atrium not well visualized. Left Atrium Normal left atrial size. Mitral Valve Structurally normal mitral valve. No mitral stenosis, regurgitation or prolapse. Aortic Valve Aortic valve not well visualized. No aortic valve stenosis or regurgitation. Tricuspid Valve Structurally normal tricuspid valve. No tricuspid stenosis. No tricuspid regurgitation. Pulmonic Valve Pulmonic valve not well visualized. No pulmonic stenosis. No pulmonic regurgitation. Pericardium No pericardial effusion. Aorta Aortic root and proximal ascending aorta not well visualized. CONCLUSIONS Normal LV function Previewed by: Dr. Manuel Baxter MD (Electronically Signed) Final Date: 20 May 2024 17:16
[2024-05-20 18:56] LABS: Glucose,Whole Blood 95 mg/dL (70-110)
--- NOTE | 2024-05-20 22:28 | EEG ---
ELECTROENCEPHALOGRAM REPORT PREAMBLE: This is a 64-year-old male who was at home complaining of nausea and vomiting all day. In the evening, family heard some fall and they found him shaking, having seizure-like activity. When EMS arrived, the patient was altered and combative. He was given Versed. The patient was intubated and remains on the ventilator. Currently, the patient on propofol 20 mcg/kg per minute. Also on fentanyl 3 mcg. EEG FINDINGS: This is a 21-channel digital EEG recorded with video component, utilizing 10/20 international system with referential and bipolar montages. The recording starts and continues with presence of diffuse, [id number] amplitude activity in mixed 2 to 3 hertz delta, with 4 to 5 hertz theta activity seen diffusely in bihemispheric region. Some sweat artifact was also seen almost throughout the study. Photic driving response was not seen. Background does not seem to be reactive to manual eye opening or closing. No focal or generalized epileptiform activity was seen. IMPRESSION: This is an abnormal EEG due to background slowing of moderate to severe degree. This is suggestive of generalized cerebral dysfunction as can be seen with toxic metabolic encephalopathy or related to diffuse structural brain abnormality. Clinical correlation is recommended. No epileptiform activity was seen. MMODL / IJN: [id number] /
--- NOTE | 2024-05-20 23:34 | P.HPIM ---
History of Present Illness H&P Date: 05/20/24 HISTORY OF PRESENT ILLNESS: 64-year-old one of my office patient for many years with active medical history of CAD post PCI and stent placement of the RCA back in October 2022, history of chronic clinical hepatitis with early cirrhosis, history of chronic lower back pain with spinal stenosis, hypertension, hyperlipidemia, hyperglycemia, chronic lower back pain, recurrent pancreatitis, chronic history of neuropathy of the lower extremity, chronic kidney disease stage III, with history of BPH mild anxiety and edema who brought to the emergency department by EMS that patient apparently through the day developed to have severe nausea vomiting with recurrent abdominal pain according family heard stump with falling found him shaking and having seizure-like activity on the floor EMS were called to the scene when arrived found to have confused and combative they gave him 10 mg of Versed which made him very calm had no further seizure activity at the time. At the time of his arrival to the emergency department patient was very confused combative hypoxic and having worsening symptoms and that being in intubated and kept on mechanical ventilation and on sedation. At that point in the ER ended up doing CT of the brain and C-spine did not show any acute intracranial hemorrhage or abnormality and no midline shift, C-spine failed to show any fracture or subluxation. CT of the abdomen and pelvis did not show any obvious saddle pulmonary embolism no acute intracranial abdominal process was seen slight some abdominal wall thickening in the sigmoid colon most likely from chronic diverticulitis and incidental 10 mm of nonobstructive calculus within the mid dilated right renal pelvis. Patient was sedated on mechanical ventilation In the emergency department was giving cefepime UA was positive at the time drug screen was positive for opiates benzodiazepine and marijuana which patient taking medication and admitted taking marijuana every so often. Risk Clinic and given duration patient be admitted to the ICU. REVIEW OF SYSTEMS: CONSTITUTIONAL: Sedated on mechanical ventilation. EYES: No icterus sclerae, no conjunctivitis. EARS, NOSE, MOUTH, THROAT, and FACE: No sore throat, lymphadenopathy, carotid bruits or deformity. ET tube. RESPIRATORY: No SOB cough or wheezes. CARDIOVASCULAR: Intubated. No obvious complaint of chest pain or angina at times despite elevated troponin. GASTROINTESTINAL: Soft positive bowel sounds slight discomfort in the left lower quadrant area and right upper quadrant area as well no rebound or rigidity. GENITOURINARY: Negative for Hematuria or UTI, no kidney stones. INTEGUMENT/BREAST: Negative for any muscular injury with mild osteoarthritis.. HEMATOLOGIC/LYMPHATIC: Negative for bleed or purpura. MUSCULOSKELTAL: Negative for Myalgia or arthralgia. NEURLOGICAL: Sedated anything in ventilation. BEHAVIORAL/PSYCH: Negative. ENDOCRINE: Negative. PHYSICAL EXAMINATION: General Appearance: Sedated on mechanical ventilation with a ET tube in place. Neck HEENT: Supple, no lymphadenopathy, no thyroid enlargement, no carotid bruits. Lungs: Decreased breath sound bilaterally fine rhonchi mild expiratory wheezes. Chest Wall: Decreased expansion with deep inspiration no tenderness and no deformity was found on exam, no costochondral pain or discomfort. Heart: Regular rate and rhythm, S1, S2 normal, no murmur, rub or gallop. Back: Symmetric, no curvature, ROM normal, no CVA tenderness. Abdomen: Soft with slight distention and slight left lower quadrant and mid abdo natanael region discomfort with no rebound or rigidity. Extremities: Extremities normal, atraumatic, no cyanosis or edema. Pulses: 2+ and symmetric. Skin: Skin color, texture, tugor normal, no rashes or lesions. Neurologic: Sedated on mechanical ventilation. ASSESSMENT AND PLAN: _Altered mental status: Most likely secondary to seizure, could be encephalopathy mostly metabolic will try to correct underlying disease also patient might be having manage STEMI might be a cause of the problem. _Seizure: Witnessed per family with the way how described patient is sedated but at least able to give medication, start Keppra prepare for EEG. _Respiratory failure: Required mechanical ventilation for airway protection. Continue vent management. _Non-STEMI: With elevated troponin EKG does not show any acute change but still consistent with significant abnormality. _History of atherosclerotic heart disease: Post angioplasty and stent placement. _Severe GERD: Remain on proton pump inhibitor. 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 _Chronic lower back pain post surgical intervention: Remain on pain meds and muscle relaxer at this point. _Gastroparesis: Has been on Protonix and Reglan in the past with good follow-up. _Hypertension: Remain on metoprolol titrate 25 mg twice a day his blood pressure still high will add smaller dose of ARB. _Hyperlipidemia: Remain on Lipitor 40 mg a day. _Chronic depression anxiety attacks has been on escitalopram 20 and alprazolam 0.5 mg twice a day. DVT prophylaxis: Will be on heparin subcutaneous. CODE STATUS: Full code. Admit patient to the inpatient service for more than 2 night stay. Past Medical History Past Medical History: Coronary Artery Disease (CAD), GERD/Reflux, Hypertension, Myocardial Infarction (OR) Additional Past Medical History / Comment(s): headaches, borderline anemic, "low iron", "low WBC's", past acid refux, Last Myocardial Infarction Date:: History of Any Multi-Drug Resistant Organisms: None Reported Past Surgical History: Heart Catheterization With Stent, Hernia Repair, Orthopedic Surgery Additional Past Surgical History / Comment(s): beau knee arthroscopy, beau knee surgery as teen, Past Anesthesia/Blood Transfusion Reactions: No Reported Reaction Date of Last Stent Placement:: 11/12/2022 Past Psychological History: Anxiety Smoking Status: Current every day smoker - Past Family History Father Family Medical History: Cancer Mother Family Medical History: Dementia Medications and Allergies Home Medications Medication Instructions Recorded Confirmed Type ALPRAZolam [Xanax] 0.5 mg PO BID 04/16/19 05/20/24 History Baclofen [Lioresal] 10 mg PO TID 11/12/22 05/20/24 History Escitalopram [Lexapro] 20 mg PO DAILY 11/12/22 05/20/24 History Atorvastatin [Lipitor] 40 mg PO DAILY 04/03/23 05/20/24 History HYDROcodone/APAP 5-325MG [Willards 1 tab PO Q12H PRN 05/07/23 05/20/24 History 5-325] Clopidogrel [Plavix] 75 mg PO DAILY 05/20/24 05/20/24 History Metoprolol Tartrate [Lopressor] 25 mg PO BID 05/20/24 05/20/24 History Allergies Allergy/AdvReac Type Severity Reaction Status Date / Time No Known Allergies Allergy Verified 05/07/23 20:00 Physical Exam Vitals: Vital Signs Temp Pulse Resp BP Pulse Ox FiO2 05/20/24 08:20 80 18 105/71 97 05/20/24 08:09 81 18 120/81 98 05/20/24 08:05 97.5 F L 80 20 123/98 98 05/20/24 07:26 97.7 F 80 18 98/66 97 05/20/24 07:10 83 18 83/59 98 05/20/24 07:01 97.7 F 83 18 90/62 98 05/20/24 06:31 97.3 F L 90 18 121/81 98 05/20/24 06:04 97.2 F L 05/20/24 05:50 40 05/20/24 05:42 96.8 F L 82 18 103/66 99 05/20/24 05:17 96.4 F L 79 18 95/64 100 05/20/24 04:45 76 18 113/81 100 05/20/24 04:31 96.1 F L 73 18 114/80 100 05/20/24 04:03 50 05/20/24 03:45 96.4 F L 73 18 84/56 99 05/20/24 02:55 75 18 80/56 98 05/20/24 02:11 50 05/20/24 01:42 100 05/20/24 01:00 100 05/20/24 00:36 100.4 F H 112 H 24 105/74 95 Intake and Output 05/19/24 05/20/24 05/20/24 22:59 06:59 14:59 Intake Total 73.818 76.343 Balance 73.818 76.343 Intake: Intake, IV Titration 73.818 76.343 Amount fentaNYL (PF). 1,000 mcg 5.437 62.858 In Sodium Chloride 0.9% 80 ml @ 0.5 MCG/KG/HR 4. 35 mls/hr IV .Q23H [facility] Rx #:[id number] propofoL 1,000 mg In 68.381 13.485 Empty Bag 1 bag @ 20 MCG/ KG/MIN 10.44 mls/hr IV . Q9H35M [facility] Rx#:[id number] Other: Weight 86.999 kg Results CBC & Chem 7: 05/21/24 05:20 05/21/24 05:20 Labs: Abnormal Lab Results - Last 24 Hours (Table) 05/20/24 05/20/24 05/20/24 Range/Units 00:45 00:45 00:45 WBC 13.5 H (3.8-10.6) k/uL Plt Count 123 L (150-450) k/uL Neutrophils # 11.8 H (1.3-7.7) k/uL Lymphocytes # 0.9 L (1.0-4.8) k/uL PT 12.6 H (10.0-12.5) sec INR 1.2 H (<1.2) ABG pH (7.35-7.45) ABG pO2 (83-108) mmHg ABG HCO3 (21-25) mmol/L ABG O2 Saturation (94-97) % Carbon Dioxide 12 L (22-30) mmol/L BUN 28 H (9-20) mg/dL Glucose 144 H (74-99) mg/dL Plasma Lactic Acid Saurabh (0.7-2.0) mmol/L Total Bilirubin 2.4 H (0.2-1.3) mg/dL ALT 65 H (4-49) U/L Troponin I (0.000-0.034) ng/mL Urine Protein (Negative) Urine Glucose (UA) (Negative) Urine Ketones (Negative) Urine Blood (Negative) Urine RBC (0-5) /hpf Urine WBC (0-5) /hpf Urine Bacteria (None) /hpf Hyaline Casts (0-2) /lpf Urine Mucus (None) /hpf Urine Yeast (Budding) (None) /hpf Urine Opiates Screen (NotDetected) U Benzodiazepines Scrn (NotDetected) U Marijuana (THC) Screen (NotDetected) 05/20/24 05/20/24 05/20/24 Range/Units 00:45 00:45 01:03 WBC (3.8-10.6) k/uL Plt Count (150-450) k/uL Neutrophils # (1.3-7.7) k/uL Lymphocytes # (1.0-4.8) k/uL PT (10.0-12.5) sec INR (<1.2) ABG pH (7.35-7.45) ABG pO2 (83-108) mmHg ABG HCO3 (21-25) mmol/L ABG O2 Saturation (94-97) % Carbon Dioxide (22-30) mmol/L BUN (9-20) mg/dL Glucose (74-99) mg/dL Plasma Lactic Acid Saurabh 9.5 H* (0.7-2.0) mmol/L Total Bilirubin (0.2-1.3) mg/dL ALT (4-49) U/L Troponin I 0.070 H* (0.000-0.034) ng/mL Urine Protein (Negative) Urine Glucose (UA) (Negative) Urine Ketones (Negative) Urine Blood (Negative) Urine RBC (0-5) /hpf Urine WBC (0-5) /hpf Urine Bacteria (None) /hpf Hyaline Casts (0-2) /lpf Urine Mucus (None) /hpf Urine Yeast (Budding) (None) /hpf Urine Opiates Screen Detected H (NotDetected) U Benzodiazepines Scrn Detected H (NotDetected) U Marijuana (THC) Screen Detected H (NotDetected) 05/20/24 05/20/24 05/20/24 Range/Units 01:03 01:47 03:43 WBC (3.8-10.6) k/uL Plt Count (150-450) k/uL Neutrophils # (1.3-7.7) k/uL Lymphocytes # (1.0-4.8) k/uL PT (10.0-12.5) sec INR (<1.2) ABG pH 7.30 L (7.35-7.45) ABG pO2 >420 H (83-108) mmHg ABG HCO3 20 L (21-25) mmol/L ABG O2 Saturation 100.2 H (94-97) % Carbon Dioxide (22-30) mmol/L BUN (9-20) mg/dL Glucose (74-99) mg/dL Plasma Lactic Acid Saurabh (0.7-2.0) mmol/L Total Bilirubin (0.2-1.3) mg/dL ALT (4-49) U/L Troponin I 0.092 H* (0.000-0.034) ng/mL Urine Protein 2+ H (Negative) Urine Glucose (UA) 2+ H (Negative) Urine Ketones 1+ H (Negative) Urine Blood Large H (Negative) Urine RBC >182 H (0-5) /hpf Urine WBC 8 H (0-5) /hpf Urine Bacteria Rare H (None) /hpf Hyaline Casts 8 H (0-2) /lpf Urine Mucus Rare H (None) /hpf Urine Yeast (Budding) Rare H (None) /hpf Urine Opiates Screen (NotDetected) U Benzodiazepines Scrn (NotDetected) U Marijuana (THC) Screen (NotDetected) 05/20/24 05/20/24 Range/Units 04:12 05:41 WBC (3.8-10.6) k/uL Plt Count (150-450) k/uL Neutrophils # (1.3-7.7) k/uL Lymphocytes # (1.0-4.8) k/uL PT (10.0-12.5) sec INR (<1.2) ABG pH (7.35-7.45) ABG pO2 152 H (83-108) mmHg ABG HCO3 (21-25) mmol/L ABG O2 Saturation 99.4 H (94-97) % Carbon Dioxide (22-30) mmol/L BUN (9-20) mg/dL Glucose (74-99) mg/dL Plasma Lactic Acid Saurabh 2.4 H* (0.7-2.0) mmol/L Total Bilirubin (0.2-1.3) mg/dL ALT (4-49) U/L Troponin I (0.000-0.034) ng/mL Urine Protein (Negative) Urine Glucose (UA) (Negative) Urine Ketones (Negative) Urine Blood (Negative) Urine RBC (0-5) /hpf Urine WBC (0-5) /hpf Urine Bacteria (None) /hpf Hyaline Casts (0-2) /lpf Urine Mucus (None) /hpf Urine Yeast (Budding) (None) /hpf Urine Opiates Screen (NotDetected) U Benzodiazepines Scrn (NotDetected) U Marijuana (THC) Screen (NotDetected)
--- NOTE | 2024-05-21 05:31 | P.PN ---
Subjective HISTORY OF PRESENTING ILLNESS This is a pleasant 64-year-old with past medical history significant for CAD status post PCI of the RCA October 2022, chronic pain, hyperlipidemia, depression, anxiety who presents secondary to epigastric discomfort, nausea, vomiting, diaphoresis. Patient currently intubated and sedated history is supplied by family members. Family states he had been feeling fine and then within a few hours started having nausea, upset stomach and breaking out in a profuse sweat. They were concerned secondary to some of his symptoms of sweating been similar to his prior cardiac arrest and stenting. He had been doing fairly well and has been over 12 months since his stenting however apparently had been placed on Plavix and aspirin discontinued in the past.. He follows in the office with Dr Robles. He was combative in the emergency department and he required Ativan and became lethargic and required intubation. His lactic acid was significantly elevated at 9 and blood pressure borderline in the 80s over 50s additionally had borderline fever with temperature 100.4. Currently he is intubated and sedated on ventilator. Blood work White blood cell count 13.5, creatinine 0.8, lactic acid 9.5 down to 2.4, troponin 0.07, 0.09, 0.08. EKG showed normal sinus rhythm with no significant ST or T-wave abnormalities. 05/21 Patient seen and examined. Patient remains intubated and sedated. Blood pressures stable off of any vasopressors. Per nursing he has been somewhat restless and was placed Versed. 40% FiO2. Remains on propofol as well. Echo showed preserved EF. EEG was performed with generalized background slowing. PHYSICAL EXAMINATION Vital signs reviewed. CONSTITUTIONAL: No apparent distress, intubated and sedated HEENT: Head is normocephalic. Pupils are equal, round. Sclerae anicteric. Mucous membranes of the mouth are moist. No JVD. No carotid bruit. CHEST EXAMINATION: Lungs are clear to auscultation. No chest wall tenderness is noted on palpation or with deep breathing. HEART EXAMINATION: Regular rate and rhythm. S1, S2 heard. No murmurs, gallops or rub. ABDOMEN: Soft, nontender. Positive bowel sounds. EXTREMITIES: 2+ peripheral pulses, no lower extremity edema and no calf tenderness. NEUROLOGIC EXAMINATION: Patient is intubated and sedated ASSESSMENT Non-STEMI, likely type II mechanism related to septic shock Sepsis with fever, tachycardia, white blood cell count and nausea and vomiting Septic shock Lactic acidosis CAD status post RCA stenting in 2022 Hypertension Hyperlipidemia PLAN Patient with main presentation of nausea, vomiting, fevers and diaphoresis. echo shows preserved EF and mildly elevated troponins appear type II mechanism Presentation mainly appears related to sepsis with significant lactic acidosis. Continue with current supportive care. Continue Plavix for now and obtain office records as it has been more than one year since previous stenting. Objective - Vital Signs Vital signs: Vital Signs Temp 98.9 F 05/21/24 04:00 Pulse 91 05/21/24 05:00 Resp 19 05/21/24 05:00 BP 131/90 05/21/24 05:00 Pulse Ox 100 05/21/24 05:00 FiO2 100 05/21/24 04:17 Intake & Output 05/20/24 05/20/24 05/21/24 06:59 18:59 06:59 Intake Total 73.818 8986.823 8980.565 Output Total 1075 725 Balance 73.818 108.816 314.565 Weight 86.999 kg 84.2 kg Intake: IV 750 Sodium Chloride 0.9% 1, 750 000 ml @ 75 mls/hr IV . [id number] [facility] Rx#:[id number] Intake, IV Titration 73.818 1183.816 289.565 Amount Ampicillin-Sulbactam 1.5 50 gm In Sodium Chloride 0.9 % 50 ml @ 100 mls/hr IVPB Q8HR [facility] Rx#:[id number] Heparin Sod,Pork in 0.45% 55 NaCl 25,000 unit In 0.45 % NaCl 1 250ml.bag @ 11. 494 UNITS/KG/HR 10 mls/hr IV .Q24H [facility] Rx#: [id number] Midazolam HCl 200 mg In 3.783 Sodium Chloride 0.9% 60 ml @ 1 MG/HR 0.5 mls/hr IV .Q24H [facility] Rx#: [id number] Sodium Chloride 0.9% 1, 825 000 ml @ 75 mls/hr IV . [id number] [facility] Rx#:[id number] fentaNYL (PF). 1,000 mcg 5.437 62.858 In Sodium Chloride 0.9% 80 ml @ 0.5 MCG/KG/HR 4. 35 mls/hr IV .Q23H [facility] Rx #:[id number] propofoL 1,000 mg In 173.080 285.782 Empty Bag 1 bag @ 15 MCG/ KG/MIN 7.83 mls/hr IV . [id number] [facility] Rx#:[id number] propofoL 1,000 mg In 68.381 17.878 Empty Bag 1 bag @ 20 MCG/ KG/MIN 10.44 mls/hr IV . Q9H35M [facility] Rx#:[id number] Output: Gastric Drainage 200 Urine 875 725 Other: Voiding Method Indwelling Catheter Indwelling Catheter - Labs CBC & Chem 7: 05/20/24 09:09 05/20/24 09:09 Labs: Abnormal Lab Results - Last 24 Hours (Table) 05/20/24 05/20/24 05/20/24 Range/Units 04:12 05:41 09:09 WBC (3.8-10.6) k/uL Plt Count (150-450) k/uL Neutrophils # (1.3-7.7) k/uL APTT 45.8 H (22.0-30.0) sec ABG pO2 152 H (83-108) mmHg ABG O2 Saturation 99.4 H (94-97) % Sodium (137-145) mmol/L Chloride (98-107) mmol/L Carbon Dioxide (22-30) mmol/L BUN (9-20) mg/dL Creatinine (0.66-1.25) mg/dL Glucose (74-99) mg/dL Plasma Lactic Acid Saurabh 2.4 H* (0.7-2.0) mmol/L Calcium (8.4-10.2) mg/dL Magnesium (1.6-2.3) mg/dL Troponin I (0.000-0.034) ng/mL 05/20/24 05/20/24 05/20/24 Range/Units 09:09 09:09 09:09 WBC 11.0 H (3.8-10.6) k/uL Plt Count 82 L (150-450) k/uL Neutrophils # 8.8 H (1.3-7.7) k/uL APTT (22.0-30.0) sec ABG pO2 (83-108) mmHg ABG O2 Saturation (94-97) % Sodium 136 L (137-145) mmol/L Chloride 109 H (98-107) mmol/L Carbon Dioxide 19 L (22-30) mmol/L BUN 27 H (9-20) mg/dL Creatinine 0.65 L (0.66-1.25) mg/dL Glucose 102 H (74-99) mg/dL Plasma Lactic Acid Saurabh (0.7-2.0) mmol/L Calcium 8.1 L (8.4-10.2) mg/dL Magnesium 2.4 H (1.6-2.3) mg/dL Troponin I 0.086 H* (0.000-0.034) ng/mL
[2024-05-21 05:39] LABS: Allen Test Performed? Yes
[2024-05-21 05:56] LABS: ABG Base Excess -0.7 mmol/L; ABG HCO3 23 mmol/L (21-25); ABG Oxygen Saturation 99.1 % (94-97); ABG PCO2 36 mmHg (35-45); ABG PH 7.42 (7.35-7.45); ABG PO2 120 mmHg (83-108); ABG TCO2 24 mmol/L (19-24)
[2024-05-21 06:00] LABS: Glucose,Whole Blood 94 mg/dL (70-110)
[2024-05-21 06:05] LABS: ALT 43 U/L (4-49); AST 44 U/L (17-59); African American GFR (CKD) >90 (>60 ml/min/1.73 sqM); Albumin 3.1 g/dL (3.5-5.0); Alkaline Phosphatase 105 U/L (38-126); Anion Gap 5 mmol/L; Blood Urea Nitrogen 19 mg/dL (9-20); Calcium 8.1 mg/dL (8.4-10.2); Carbon Dioxide 20 mmol/L (22-30); Chloride 111 mmol/L (98-107); Glucose 96 mg/dL (74-99); Non-African American GFR(CKD) >90 (>60 ml/min/1.73 sqM); Potassium 3.5 mmol/L (3.5-5.1); Sodium 136 mmol/L (137-145); Total Bilirubin 1.6 mg/dL (0.2-1.3); Total Protein 5.9 g/dL (6.3-8.2)
[2024-05-21 06:09] LABS: Basophils % (A) 0 %; Eosinophils % (A) 0 %; HCT 40.3 % (39.0-53.0); HGB 13.3 gm/dL (13.0-17.5); Lymphocytes # (A) 0.7 k/uL (1.0-4.8); Lymphocytes % (A) 8 %; MCH 32.5 pg (25.0-35.0); MCV 98.5 fL (80.0-100.0); Mean Platelet Volume 8.8; Monocytes # (A) 0.5 k/uL (0-1.0); Monocytes % (A) 7 %; Neutrophils # (A) 6.7 k/uL (1.3-7.7); Neutrophils % (A) 84 %; RBC 4.09 m/uL (4.30-5.90); RDW 13.6 % (11.5-15.5)
[2024-05-21 06:13] LABS: Platelet Count 46 k/uL (150-450)
--- NOTE | 2024-05-21 06:43 | P.CNNES ---
History of Present Illness Consult date: 05/20/24 Requesting physician: Keiko Carroll Reason for Consult: Seizure History of Present Illness: Patient is a 64-year-old male came to the hospital by ambulance early this morning at 12:35 AM for a fall and seizure-like activity and altered mental status. EMS flowsheet not available in the chart. Patient is intubated, sedated. As per records from the ED, and as per report from nursing staff, it was reported that patient had nausea and vomiting throughout the day. In the evening, patient's family heard him fall, while he was heard going to the bathroom. They found him shaking and having seizure-like activity. On EMS arrival, patient was confused and combative. He was given Versed 10 mg IM. He did not return back to baseline. No known history of seizures. In the ER patient was intubated because he was very confused, not able to be directed, in order to have testing performed. Patient's GCS was 8-9. Patient was given Keppra 2 g in the ER. Patient was transferred to ICU. Vital signs on arrival blood pressure 105/74, pulse 81 and 12, temperature 100.4. Blood test shows WBC 13.5 hemoglobin 7.0, platelets 123. INR 1.2. pH 7.3, pCO2 40, saturation 100%. Electrolytes are normal, renal functions normal. Lactate 9.5. AST normal 54, ALT 65. Troponins are mildly elevated 0.070. UA shows more than 182 RBC and 8 WBC. Urine positive for opiate, benzodiazepine and marijuana. Blood alcohol level negative. Chest x-ray showed left perihilar moderate interstitial pattern mild edema or infiltrates. Mild widening of the superior mediastinum. Tortuous appearing thoracic aortic arch. CT head showed no acute intracranial process. CT of the cervical spine showed no significant cervical vertebral abnormalities posttrauma. I personally reviewed CT head and agree with the findings. CT of the chest abdomen and pelvis showed splenomegaly. Diffuse fatty hepatic infiltration. A 10 mm nonobstructive calculus is seen in a mildly dilated right renal pelvis. Abnormal wall thickening of the sigmoid colon, likely from chronic diverticulitis. Differential diagnosis includes malignancy. Pelvic x-ray showed no fracture. Bilateral hip osteoarthritis. EKG shows sinus rhythm. Recent chest x-ray showed no acute cardiopulmonary process. Patient does take Plavix, metoprolol, Lipitor 40 mg, baclofen, Lexapro and Xanax 0.5 mg twice daily. Since arrival to the ICU, patient has not had any more seizures. Patient has been very combative, restless, therefore is on high-dose propofol 55 mcg/kg/min. Nurses have reported that he moves all 4 extremities. Review of Systems ROS unobtainable: due to mental status Past Medical History Past Medical History: Coronary Artery Disease (CAD), GERD/Reflux, Hypertension, Myocardial Infarction ([place]) Additional Past Medical History / Comment(s): headaches, borderline anemic, "low iron", "low WBC's", past acid refux, Last Myocardial Infarction Date:: History of Any Multi-Drug Resistant Organisms: None Reported Past Surgical History: Heart Catheterization With Stent, Hernia Repair, Orthopedic Surgery Additional Past Surgical History / Comment(s): beau knee arthroscopy, beau knee surgery as teen, Past Anesthesia/Blood Transfusion Reactions: No Reported Reaction Date of Last Stent Placement:: 11/12/2022 Past Psychological History: Anxiety Smoking Status: Current every day smoker - Past Family History Father Family Medical History: Cancer Mother Family Medical History: Dementia Medications and Allergies Home Medications Medication Instructions Recorded Confirmed Type ALPRAZolam [Xanax] 0.5 mg PO BID 04/16/19 05/20/24 History Baclofen [Lioresal] 10 mg PO TID 11/12/22 05/20/24 History Escitalopram [Lexapro] 20 mg PO DAILY 11/12/22 05/20/24 History Atorvastatin [Lipitor] 40 mg PO DAILY 04/03/23 05/20/24 History HYDROcodone/APAP 5-325MG [[place] 1 tab PO Q12H PRN 05/07/23 05/20/24 History 5-325] Clopidogrel [Plavix] 75 mg PO DAILY 05/20/24 05/20/24 History Metoprolol Tartrate [Lopressor] 25 mg PO BID 05/20/24 05/20/24 History Allergies Allergy/AdvReac Type Severity Reaction Status Date / Time No Known Allergies Allergy Verified 05/07/23 20:00 Physical Examination - Vital Signs Vital Signs: Vital Signs Temp Pulse Resp BP Pulse Ox FiO2 05/20/24 14:00 72 18 98 05/20/24 13:45 73 18 92/64 98 05/20/24 13:30 72 18 88/68 97 05/20/24 13:15 75 18 106/72 97 05/20/24 13:00 79 18 113/75 100 05/20/24 12:45 72 18 103/74 100 05/20/24 12:30 73 18 104/74 100 05/20/24 12:15 71 18 114/80 100 05/20/24 12:00 98.0 F 68 18 124/92 100 40 05/20/24 11:45 70 18 109/73 99 05/20/24 11:30 70 18 139/88 100 05/20/24 11:29 40 05/20/24 11:15 82 30 H 116/84 87 L 05/20/24 11:00 68 18 117/76 100 05/20/24 10:45 66 18 115/84 100 05/20/24 10:30 67 18 117/82 100 05/20/24 10:15 67 18 100/75 98 05/20/24 10:00 70 18 92/65 96 05/20/24 09:45 72 18 97 05/20/24 09:38 72 18 87/64 96 05/20/24 09:20 72 18 82/58 96 05/20/24 09:15 72 18 86/62 96 05/20/24 09:11 40 05/20/24 09:10 72 18 89/58 96 05/20/24 09:05 72 18 93/66 96 05/20/24 09:00 40 05/20/24 08:55 97.9 F 75 18 140/78 96 40 05/20/24 08:50 97.7 F 82 18 102/70 98 05/20/24 08:32 36.4 F L 75 18 102/67 96 05/20/24 08:25 76 18 126/85 96 05/20/24 08:20 80 18 105/71 97 05/20/24 08:09 81 18 120/81 98 05/20/24 08:08 40 05/20/24 08:05 97.5 F L 80 20 123/98 98 05/20/24 07:26 97.7 F 80 18 98/66 97 05/20/24 07:10 83 18 83/59 98 05/20/24 07:01 97.7 F 83 18 90/62 98 05/20/24 06:31 97.3 F L 90 18 121/81 98 05/20/24 06:04 97.2 F L 05/20/24 05:50 40 05/20/24 05:42 96.8 F L 82 18 103/66 99 05/20/24 05:17 96.4 F L 79 18 95/64 100 05/20/24 04:45 76 18 113/81 100 05/20/24 04:31 96.1 F L 73 18 114/80 100 05/20/24 04:03 50 05/20/24 03:45 96.4 F L 73 18 84/56 99 05/20/24 02:55 75 18 80/56 98 05/20/24 02:11 50 05/20/24 01:42 100 05/20/24 01:00 100 05/20/24 00:36 100.4 F H 112 H 24 105/74 95 Intake and Output 05/19/24 05/20/24 05/20/24 22:59 06:59 14:59 Intake Total 73.818 515.311 Output Total 395 Balance 73.818 120.311 Intake: Intake, IV Titration 73.818 515.311 Amount Heparin Sod,Pork in 0.45% 40 NaCl 25,000 unit In 0.45 % NaCl 1 250ml.bag @ 11. 494 UNITS/KG/HR 10 mls/hr IV .Q24H [facility] Rx#: [id number] Sodium Chloride 0.9% 1, 375 000 ml @ 75 mls/hr IV . [id number] [facility] Rx#:[id number] fentaNYL (PF). 1,000 mcg 5.437 62.858 In Sodium Chloride 0.9% 80 ml @ 0.5 MCG/KG/HR 4. 35 mls/hr IV .Q23H [facility] Rx #:[id number] propofoL 1,000 mg In 19.575 Empty Bag 1 bag @ 15 MCG/ KG/MIN 7.83 mls/hr IV . [id number] [facility] Rx#:[id number] propofoL 1,000 mg In 68.381 17.878 Empty Bag 1 bag @ 20 MCG/ KG/MIN 10.44 mls/hr IV . [id number] [facility] Rx#:[id number] Output: Urine 395 Other: Voiding Method Indwelling Catheter Weight 86.999 kg Patient is an elderly male, who is intubated, sedated on propofol 55 mcg/kg/min. Patient is sedated, intubated. On cranial nerve examination, pupils are equal, round and reacting to light, ocu locephalics are absent. Corneals are slightly present. Patient is breathing over the ventilator. He does have gag and cough. Other cranial nerves cannot be tested. No obvious seizure-like activity noted. On muscle strength testing, patient is not following any commands because of being sedated. Deep tendon reflexes are symmetric 1+ in the upper, 2 in the lower limbs and plantars are probably withdrawal versus upgoing.. Sensory to touch patient does not respond, but with painful stimuli, he does have facial grimacing equally bilaterally. Cerebellar function cannot be tested. Tone and bulk of muscles normal. Gait deferred.. On general examination, there is no carotid bruit or murmur, S1-S2 audible. Chest is clear on consultation. Abdomen is soft nontender. No organomegaly, bowel sounds present. Peripheral pulses are present. No peripheral edema. Results - Laboratory Findings CBC and BMP: 05/21/24 05:20 05/21/24 05:20 Abnormal Lab Findings: Abnormal Labs 05/20/24 05/20/24 05/20/24 00:45 00:45 00:45 WBC 13.5 H Plt Count 123 L Neutrophils # 11.8 H Lymphocytes # 0.9 L PT 12.6 H INR 1.2 H APTT ABG pH ABG pO2 ABG HCO3 ABG O2 Saturation Sodium Chloride Carbon Dioxide 12 L BUN 28 H Creatinine Glucose 144 H Plasma Lactic Acid Saurabh Calcium Magnesium Total Bilirubin 2.4 H ALT 65 H Troponin I Urine Protein Urine Glucose (UA) Urine Ketones Urine Blood Urine RBC Urine WBC Urine Bacteria Hyaline Casts Urine Mucus Urine Yeast (Budding) Urine Opiates Screen U Benzodiazepines Scrn U Marijuana (THC) Screen 05/20/24 05/20/24 05/20/24 00:45 00:45 01:03 WBC Plt Count Neutrophils # Lymphocytes # PT INR APTT ABG pH ABG pO2 ABG HCO3 ABG O2 Saturation Sodium Chloride Carbon Dioxide BUN Creatinine Glucose Plasma Lactic Acid Saurabh 9.5 H* Calcium Magnesium Total Bilirubin ALT Troponin I 0.070 H* Urine Protein Urine Glucose (UA) Urine Ketones Urine Blood Urine RBC Urine WBC Urine Bacteria Hyaline Casts Urine Mucus Urine Yeast (Budding) Urine Opiates Screen Detected H U Benzodiazepines Scrn Detected H U Marijuana (THC) Screen Detected H 05/20/24 05/20/24 05/20/24 01:03 01:47 03:43 WBC Plt Count Neutrophils # Lymphocytes # PT INR APTT ABG pH 7.30 L ABG pO2 >420 H ABG HCO3 20 L ABG O2 Saturation 100.2 H Sodium Chloride Carbon Dioxide BUN Creatinine Glucose Plasma Lactic Acid Saurabh Calcium Magnesium Total Bilirubin ALT Troponin I 0.092 H* Urine Protein 2+ H Urine Glucose (UA) 2+ H Urine Ketones 1+ H Urine Blood Large H Urine RBC >182 H Urine WBC 8 H Urine Bacteria Rare H Hyaline Casts 8 H Urine Mucus Rare H Urine Yeast (Budding) Rare H Urine Opiates Screen U Benzodiazepines Scrn U Marijuana (THC) Screen 05/20/24 05/20/24 05/20/24 04:12 05:41 09:09 WBC Plt Count Neutrophils # Lymphocytes # PT INR APTT 45.8 H ABG pH ABG pO2 152 H ABG HCO3 ABG O2 Saturation 99.4 H Sodium Chloride Carbon Dioxide BUN Creatinine Glucose Plasma Lactic Acid Saurabh 2.4 H* Calcium Magnesium Total Bilirubin ALT Troponin I Urine Protein Urine Glucose (UA) Urine Ketones Urine Blood Urine RBC Urine WBC Urine Bacteria Hyaline Casts Urine Mucus Urine Yeast (Budding) Urine Opiates Screen U Benzodiazepines Scrn U Marijuana (THC) Screen 05/20/24 05/20/24 05/20/24 09:09 09:09 09:09 WBC 11.0 H Plt Count 82 L Neutrophils # 8.8 H Lymphocytes # PT INR APTT ABG pH ABG pO2 ABG HCO3 ABG O2 Saturation Sodium 136 L Chloride 109 H Carbon Dioxide 19 L BUN 27 H Creatinine 0.65 L Glucose 102 H Plasma Lactic Acid Saurabh Calcium 8.1 L Magnesium 2.4 H Total Bilirubin ALT Troponin I 0.086 H* Urine Protein Urine Glucose (UA) Urine Ketones Urine Blood Urine RBC Urine WBC Urine Bacteria Hyaline Casts Urine Mucus Urine Yeast (Budding) Urine Opiates Screen U Benzodiazepines Scrn U Marijuana (THC) Screen Assessment and Plan Assessment: * Altered mental status, unclear cause. Rule out postictal state. Rule out other toxic metabolic causes, other infectious causes. * New onset seizure versus convulsive syncope. Unclear cause. * Respiratory failure, on mechanical ventilation * Lactic acidosis * Non-STEMI * CAD * History of liver disease * Chronic low back pain * Hypertension * Hyperlipidemia * Depression Plan: * EEG was performed, which was abnormal due to background slowing of moderate to severe degree. This suggestive of generalized cerebral dysfunction, as can be seen with toxic metabolic encephalopathy related to diffuse structural brain abnormality. Clinical correlation is recommended. No epileptiform activity was seen. * Empirically continue Keppra 1000 mg IV twice daily. * Patient currently on Unasyn and cefepime. * Ammonia level, B12, folate, blood cultures. * 2D echo revealed normal LV function with EF 60 to 65%. No obvious regional wall motion abnormalities. Normal left atrial size. No valvular abnormalities. * Carotid Doppler * Initial CT head is normal. May need repeat CT head in 24 to 48 hours. * Cardiology on board for elevated cardiac enzymes. Resume Plavix and Lipitor 40 mg. * Patient had isolated incident of elevated temperature, initially has mild leukocytosis, but now has normalized. If mentation does not improve, may consider lumbar puncture. * We will obtain collateral history from family members. * Neurology will follow. Thank you for the consult.
[2024-05-21] MEDS: POTASSIUM BICARBONATE/CIT AC 20 MEQ TABLET.EFF NG-TUBE SCH ×4 (06:46→19:53)
[2024-05-21 06:58] LABS: Glucose,Whole Blood 101 mg/dL (70-110)
[2024-05-21 06:58] LABS: Glucose,Whole Blood 92 mg/dL (70-110)
[2024-05-21 06:59] LABS: Glucose,Whole Blood 139 mg/dL (70-110)
--- NOTE | 2024-05-21 08:27 | US ---
EXAMINATION TYPE: US carotid duplex BILAT DATE OF EXAM: 05/21/2024 Exam done portable in ICU COMPARISON: NONE CLINICAL INDICATION: Male, 64 years old with history of Syncope, altered mental status; TECHNIQUE: Grayscale, color Doppler and spectral Doppler evaluation of the bilateral carotid systems and vertebral arteries.Indirect Doppler criteria was utilized. FINDINGS: EXAM MEASUREMENTS: RIGHT: Peak Systolic Velocity (PSV) cm/sec ----- Right CCA: 81.2 ----- Right ICA: 78.3 ----- Right ECA: 149.0 ICA/CCA ratio: 1.0 RIGHT: End Diastole cm/sec ----- Right CCA: 9.1 ----- Right ICA: 22.7 ----- Right ECA: 11.6 LEFT: Peak Systolic Velocity (PSV) cm/sec ----- Left CCA: 111.0 ----- Left ICA: 83.9 ----- Left ECA: 92.3 ICA/CCA ratio: 0.8 LEFT: End Diastole cm/sec ----- Left CCA: 13.8 ----- Left ICA: 28.9 ----- Left ECA: 7.8 VERTEBRALS (direction of flow): Right Vertebral: Antegrade Left Vertebral: Antegrade Rhythm: Normal No significant stenosis IMPRESSION: Less than 50% stenosis of the bilateral carotid bifurcations. Criteria for Assigning % of Stenosis / Diameter reduction (Estimation based on the indirect measurements of the internal carotid artery velocities (ICA PSV). 1. Normal (no stenosis)=ICA PSV < 125 cm/s: ratio < 2.0: ICA EDV<40 cm/s. 2. Less than 50% stenosis=ICA PSV < 125 cm/s: ratio < 2.0: ICA EDV<40 cm/s. 3. 50 to 69% stenosis=ICA PSV of 125 to 230 cm/s: ration 2.0 ? 4.0: ICA EDV 40-100 cm/s. 4. Greater than 70% stenosis to near occlusion= ICA PSV > 230 cm/s: ratio > 4.0: ICA EDV > 100 cm/s. 5. Near occlusion= ICA PSV velocities may be low or undetectable: variable ratio and ICA EDV. 6. Total occlusion=unable to detect flow. [facility], , 05/21/2024 8:25 AM
--- NOTE | 2024-05-21 08:34 | XR ---
EXAMINATION TYPE: XR chest 1V portable DATE OF EXAM: 05/21/2024 5:32 AM CLINICAL INDICATION: Male, 64 years old with history of Tube placement; [facility] COMPARISON: Chest radiograph from one day prior. TECHNIQUE: XR chest 1V portable Frontal view of the chest. FINDINGS: Lungs/Pleura: There is no evidence of pleural effusion, focal consolidation, or pneumothorax. Pulmonary vascularity: Unremarkable. Heart/mediastinum: Cardiomediastinal silhouette is unremarkable. Musculoskeletal: No acute osseous pathology. Other findings: None Lines/Tubes: Endotracheal tube with distal tip 2.5cm above the darrion. Nasogastric tube with its distal tip and side-port projecting under the diaphragm. IMPRESSION: 1. Support tubes in appropriate position. 2. No acute cardiopulmonary disease/process. [facility], , 05/21/2024 8:32 AM
[2024-05-21] MEDS: levETIRAcetam IV 500 MG/5 ML VIAL IVP SCH (08:39)
[2024-05-21] MEDS ORDERED: ACETAMINOPHEN IV (For NPO) 1,000 MG in EMPTY BAG 1 BAG IVPB PRN (11:20)
[2024-05-21 11:52] LABS: Glucose,Whole Blood 98 mg/dL (70-110)
[2024-05-21 12:12] LABS: Appearance,Urine Clear (Clear); Bacteria,Urine Rare /hpf; Bilirubin,Urine Negative (Negative); Blood,Urine Large (Negative); Color,Urine Yellow; Glucose,Urine (UA) Negative (Negative); Ketones,Urine 2+ (Negative); Leukocyte Esterase,Urine Trace (Negative); Mucus,Urine Occasional /hpf; Nitrite,Urine Negative (Negative); PH, Urine 5.5 (5.0-8.0); Protein,Urine Trace (Negative); RBC,Urine 127 /hpf (0-5); Specific Gravity,Urine 1.028 (1.001-1.035); Urobilinogen,Urine <2.0 mg/dL (<2.0); WBC,Urine 6 /hpf (0-5)
--- NOTE | 2024-05-21 12:39 | OP ---
OPERATIVE REPORT DATE OF SERVICE : PROCEDURE PERFORMED: Placement of a left radial arterial line. PREOPERATIVE DIAGNOSIS: Acute hypoxic respiratory failure requiring intubation and mechanical ventilation. POSTOPERATIVE DIAGNOSIS: Acute hypoxic respiratory failure requiring intubation and mechanical ventilation. ANESTHESIA USED: None deployed. DESCRIPTION OF PROCEDURE: The left wrist was prepared in a sterile fashion, drapes were applied. The left radial artery palpated, cannulated easily, a guidewire placed, and a Cook's catheter was inserted over the guidewire, and the guidewire was removed. Good blood flow, good waveform, no complications, line was secured using 3.0 silk sutures. MMODL / IJN: [id number] /
--- NOTE | 2024-05-21 13:01 | P.PN ---
Subjective Progress Note Date: 05/21/24 Principal diagnosis: Acute respiratory failure and altered mental status Patient is a 64-year-old male with past medical history significant for coronary artery disease with previous PCI/stent, syncope, hypertension, hyperlipidemia, among other things. Patient is currently intubated to the mechanical ventilator, unable to provide any information for HPI. Patient presented e mergency department early this morning. Apparently, family heard the patient fall from a different room. They found him on the floor shaking with reported seizure-like activity. When EMS arrived patient was confused and combative. They did give 10 mg of IM Versed. On arrival to the emergency department, patient was intubated by the ER provider. He is underwent an extensive workup. CT of the brain and C-spine did not show any acute intracranial hemorrhage, no midline shift or mass effect. No C-spine fracture or subluxation. Apparently, the patient was having nausea and vomiting and fever. A CT of the chest abdomen and pelvis did not show obvious saddle PE. No acute intra-abdominal process. There was some abdominal wall thickening of the sigmoid colon, likely from chronic diverticulitis. Incidentally, a 10 mm nonobstructive calculus seen in the mildly dilated right renal pelvis. Patient remains in the emergency department on my evaluation, in trauma bay 2. Remains intubated mechanical ventilator with current ventilator settings including assist-control, respiratory rate 18, tidal volume 450, FiO2 50%, PEEP of 5. Postintubation ABG includes a PaO2 of greater than 420, pCO2 of 40, and pH of 7.3. This was done on a FiO2 of 100%. He is on propofol currently infusing at 25 mcg/kg/min. Synchronous with current ventilator settings. Fentanyl is also infusing at 2 mcg/kg/h. Heparin infusing per protocol. Patient did have some elevated troponins on presentation of the 0.07 and 0.09 respectively. EKG: Sinus tachycardia, rate 101 bpm, no obvious acute ischemic changes. Body temperature now hypothermic, currently 36 C with Porsha hugger on, heart rate 83 bpm, blood p ressure normotensive at 105/71 mmHg, SpO2 98%. CBC: WBC count 13.5, hemoglobin 17, hematocrit 52.7, platelets 123. CMP: Sodium 137, potassium 4.2, chloride 105, serum bicarb 12, BUN 28, creatinine 0.8, glucose 144. Lactic elevated at 9.5. LFTs unremarkable. Patient did have a fever of 100 degrees on arrival to the emergency department. Was given dose of cefepime. UA not very remarkable for infection, rare bacteria. Urine drug screen positive for opiates, benzodiazepines, marijuana. Serum alcohol level less than 10. Patient was loaded with Keppra in the emergency department. No further seizure-like activity noted. Patient was evaluated today on 05/21/2024. Remains in the ICU, intubated and mechanically ventilated, patient remains on antibiotics remains on seizure medications he is on assist-control rate of 18 tidal volume 450 FiO2 40% and PEEP of 5 ABG showed a pO2 of 120 pCO2 36 pH of 7.42 hands his FiO2 was cut down to 35%. Patient became extremely agitated last night and early this morning, and he was not mentally appropriate, hence required more sedation to be able to ventilating properly we had to increase his Versed to 5 mg/h he remains on propofol at 45 mcg/kg/min. Patient also spiked a temp yesterday, and neurology is likely to recommend lumbar puncture on this patient today. His EEG showed mostly slowing activity but no seizures. Patient is maintained on Keppra his carotid studies are negative his echocardiogram showed good LV function with ejection fraction of 60 to 65%, no significant valvular heart disease. I was planning to consider weaning on this patient today, however with his present condition this is placed on hold. On admission patient was placed on Unasyn for possible aspiration pneumonia, chest x-ray today is reassuring. Minimal atel ectasis no clear-cut evidence of pneumonia. However considering his intermittent fevers, will continue on Unasyn for now. And again the patient may require lumbar puncture todayWBC count today is 8 hemoglobin is 13.3 electrolytes are normal potassium is a bit low at 3.5, transfer to Objective - Vital Signs Vital signs: Vital Signs Temp 99.1 F 05/21/24 12:00 Pulse 84 05/21/24 12:00 Resp 20 05/21/24 12:00 BP 124/80 05/21/24 12:00 Pulse Ox 100 05/21/24 12:00 FiO2 40 05/21/24 12:00 Intake & Output 05/20/24 05/21/24 05/21/24 18:59 06:59 18:59 Intake Total 6866.054 9031.565 659.123 Output Total 1075 970 970 Balance 108.816 144.565 -310.877 Weight 84.2 kg 84.2 kg Intake: IV 825 450 Sodium Chloride 0.9% 1, 825 450 000 ml @ 75 mls/hr IV . [id number] [facility] Rx#:[id number] Intake, IV Titration 1183.816 289.565 209.123 Amount Ampicillin-Sulbactam 1.5 50 gm In Sodium Chloride 0.9 % 50 ml @ 100 mls/hr IVPB Q8HR [facility] Rx#:[id number] Heparin Sod,Pork in 0.45% 55 NaCl 25,000 unit In 0.45 % NaCl 1 250ml.bag @ 11. 494 UNITS/KG/HR 10 mls/hr IV .Q24H [facility] Rx#: [id number] Midazolam HCl 200 mg In 3.783 16.25 Sodium Chloride 0.9% 60 ml @ 1 MG/HR 0.5 mls/hr IV .Q24H [facility] Rx#: [id number] Sodium Chloride 0.9% 1, 825 000 ml @ 75 mls/hr IV . [id number] [facility] Rx#:[id number] fentaNYL (PF). 1,000 mcg 62.858 In Sodium Chloride 0.9% 80 ml @ 0.5 MCG/KG/HR 4. 35 mls/hr IV .Q23H [facility] Rx #:[id number] propofoL 1,000 mg In 173.080 285.782 192.873 Empty Bag 1 bag @ 15 MCG/ KG/MIN 7.83 mls/hr IV . [id number] [facility] Rx#:[id number] propofoL 1,000 mg In 17.878 Empty Bag 1 bag @ 20 MCG/ KG/MIN 10.44 mls/hr IV . [id number] [facility] Rx#:[id number] Output: Gastric Drainage 200 200 670 Urine 875 770 300 Other: Voiding Method Indwelling Catheter Indwelling Catheter Indwelling Catheter ABP, PAP, CO, CI - Last Documented Arterial Blood Pressure 100/53 - Exam GENERAL EXAM: Reveals 64-year-old white male intubated mechanically ventilated sedated on propofol and Versed. HEAD: Normocephalic and atraumatic EYES: Normal reaction of pupils, equal size. No nystagmus. Nonicteric sclera NOSE: Clear with pink turbinates. THROAT: No erythema or exudates. NECK: No masses, no JVD. CHEST: No chest wall deformity. LUNGS: Symmetrical chest expansion, clear breath sound bilaterally no crackles rhonchi or wheezes CVS: S1 and S2 normal with no audible murmur, regular rhythm. No extra heart sounds ABDOMEN: Soft nontender no megaly no rebound no guarding positive bowel sounds SKIN: No rashes CENTRAL NERVOUS SYSTEM: Sedated on propofol and Versed: Could not assess, but he was noted to be extremely agitated restless on lower dose of sedation before Versed was added EXTREMITIES: No clubbing edema or cyanosis, excellent pulses bilaterally. - Labs CBC & Chem 7: 05/21/24 05:20 05/21/24 09:59 Labs: Abnormal Lab Results - Last 24 Hours (Table) 05/20/24 05/21/24 05/21/24 Range/Units 00:45 05:20 05:20 RBC 4.09 L (4.30-5.90) m/uL Plt Count 46 L (150-450) k/uL Lymphocytes # 0.7 L (1.0-4.8) k/uL ABG pO2 (83-108) mmHg ABG O2 Saturation (94-97) % Sodium 136 L (137-145) mmol/L Chloride 111 H (98-107) mmol/L Carbon Dioxide 20 L (22-30) mmol/L Creatinine 0.57 L (0.66-1.25) mg/dL POC Glucose (mg/dL) 139 H (70-110) mg/dL Calcium 8.1 L (8.4-10.2) mg/dL Total Bilirubin 1.6 H (0.2-1.3) mg/dL Total Protein 5.9 L (6.3-8.2) g/dL Albumin 3.1 L (3.5-5.0) g/dL Vitamin B12 (200.0-944.0) pg/mL Folate (4.40-31.00) ng/mL Urine Protein (Negative) Urine Ketones (Negative) Urine Blood (Negative) Ur Leukocyte Esterase (Negative) Urine RBC (0-5) /hpf Urine WBC (0-5) /hpf Urine Bacteria (None) /hpf Urine Mucus (None) /hpf 05/21/24 05/21/24 05/21/24 Range/Units 05:25 07:38 07:38 RBC (4.30-5.90) m/uL Plt Count (150-450) k/uL Lymphocytes # (1.0-4.8) k/uL ABG pO2 120 H (83-108) mmHg ABG O2 Saturation 99.1 H (94-97) % Sodium (137-145) mmol/L Chloride (98-107) mmol/L Carbon Dioxide (22-30) mmol/L Creatinine (0.66-1.25) mg/dL POC Glucose (mg/dL) (70-110) mg/dL Calcium (8.4-10.2) mg/dL Total Bilirubin (0.2-1.3) mg/dL Total Protein (6.3-8.2) g/dL Albumin (3.5-5.0) g/dL Vitamin B12 175.0 L (200.0-944.0) pg/mL Folate 3.50 L (4.40-31.00) ng/mL Urine Protein (Negative) Urine Ketones (Negative) Urine Blood (Negative) Ur Leukocyte Esterase (Negative) Urine RBC (0-5) /hpf Urine WBC (0-5) /hpf Urine Bacteria (None) /hpf Urine Mucus (None) /hpf 05/21/24 Range/Units 11:55 RBC (4.30-5.90) m/uL Plt Count (150-450) k/uL Lymphocytes # (1.0-4.8) k/uL ABG pO2 (83-108) mmHg ABG O2 Saturation (94-97) % Sodium (137-145) mmol/L Chloride (98-107) mmol/L Carbon Dioxide (22-30) mmol/L Creatinine (0.66-1.25) mg/dL POC Glucose (mg/dL) (70-110) mg/dL Calcium (8.4-10.2) mg/dL Total Bilirubin (0.2-1.3) mg/dL Total Protein (6.3-8.2) g/dL Albumin (3.5-5.0) g/dL Vitamin B12 (200.0-944.0) pg/mL Folate (4.40-31.00) ng/mL Urine Protein Trace H (Negative) Urine Ketones 2+ H (Negative) Urine Blood Large H (Negative) Ur Leukocyte Esterase Trace H (Negative) Urine RBC 127 H (0-5) /hpf Urine WBC 6 H (0-5) /hpf Urine Bacteria Rare H (None) /hpf Urine Mucus Occasional H (None) /hpf Assessment and Plan Assessment: Impression: Altered mental status, related to acute syncopal episode versus seizure and possibly postictal phase. Acute sepsis primary source is not clear at this point. Acute syncopal episode versus seizure Acute respiratory failure requiring intubation mechanical ventilation mostly to protect his airways. Considering his mental status on presentation Elevated troponin History of coronary artery disease with previous PCI/stent/RCA. Dyslipidemia Benign essential hypertension Marijuana smoker Recommendation: Continue ventilatory support Continue antibiotics, patient to be seen by infectious disease and urology is considering lumbar puncture on this patient. Specially with his mental status change and intermittent fevers Consider nutritional support/enteral feeding, patient has significant output in his nasogastric tube at this point we will address this in the next 24 hours Continue present supportive care measures Continue GI DVT prophylaxis Check cultures including blood and sputum cultures and address accordingly check CSF cultures once patient undergoes lumbar puncture Continue seizure meds as ordered by neurology Continue Versed and propofol for now Not ready for any weaning at this point considering his overall mental status Patient is critically ill Critical care time is over 30-minute Time with Patient: Greater than 30
[2024-05-21] MEDS: CYANOCOBALAMIN 1,000 MCG/ML 1 ML VIAL IM SCH (13:53)
[2024-05-21] MEDS: PIPERACILLIN-TAZOBACTAM 3.375 GM in SODIUM CHLORIDE 0.9% 100 ML IVPB SCH (15:46)
[2024-05-21] MEDS: ACYCLOVIR SODIUM 850 MG in SODIUM CHLORIDE 0.9% 250 ML IVPB SCH (16:23)
--- NOTE | 2024-05-21 22:48 | P.CONS ---
History of Present Illness - Reason for Consult Consult date: 05/21/24 Fever mental status changes Requesting physician: Hernan Olvera - Chief Complaint Fever agitation x 1 day - History of Present Illness Patient is a 64-year-old male with a past medical history significant for coronary disease reflux hypertension [place], patient was brought into the hospital yesterday morning after apparently the patient did have nausea and vomiting throughout the day and that evening the patient did have a fall the family found the patient to be shaking and having seizure-like activity on arrival of the EMS the patient was confused and combative received ketamine, Versed and subsequently patient has been brought into the hospital patient got i ntubated on arrival to the ER by the ER provider patient did have fever of 100.4 F on arrival to the ER patient was tachycardic on arrival he was not hypotensive and not hypoxic patient is currently on the vent requiring 35% FiO2 patient did have elevated white count 13.5 on admission that has subsequently normalized creatinine has been normal bilirubin elevated liver enzymes are normal, urine has been mildly positive urine raising was positive for opiates benzos and marijuana patient did have a chest x-ray left perihilar moderate interstitial pattern edema or infiltrate patient also have CT of the chest abdomen and pelvis which did shows abdominal wall thickening of the sigmoid colon likely from chronic diverticulitis diffuse fatty hepatic infiltration patient has been treated with Unasyn infectious disease was consulted today regarding mental status changes and fever and further evaluation most information has been obtained from review the chart and discussion with the neurologist as no family member at the bedside Review of Systems Positive points has been mentioned in HPI complete review could not be obtained because patient intubated on the vent Past Medical History Past Medical History: Coronary Artery Disease (CAD), GERD/Reflux, Hypertension, Myocardial Infarction ([place]) Additional Past Medical History / Comment(s): headaches, borderline anemic, "low iron", "low WBC's", past acid refux, Last Myocardial Infarction Date:: History of Any Multi-Drug Resistant Organisms: None Reported Past Surgical History: Heart Catheterization With Stent, Hernia Repair, Orthopedic Surgery Additional Past Surgical History / Comment(s): beau knee arthroscopy, beau knee surgery as teen, Past Anesthesia/Blood Transfusion Reactions: No Reported Reaction Date of Last Stent Placement:: 11/12/2022 Past Psychological History: Anxiety Smoking Status: Current every day smoker - Past Family History Father Family Medical History: Cancer Mother Family Medical History: Dementia Medications and Allergies Home Medications Medication Instructions Recorded Confirmed Type ALPRAZolam [Xanax] 0.5 mg PO BID 04/16/19 05/20/24 History Baclofen [Lioresal] 10 mg PO TID 11/12/22 05/20/24 History Escitalopram [Lexapro] 20 mg PO DAILY 11/12/22 05/20/24 History Atorvastatin [Lipitor] 40 mg PO DAILY 04/03/23 05/20/24 History HYDROcodone/APAP 5-325MG [[place] 1 tab PO Q12H PRN 05/07/23 05/20/24 History 5-325] Clopidogrel [Plavix] 75 mg PO DAILY 05/20/24 05/20/24 History Metoprolol Tartrate [Lopressor] 25 mg PO BID 05/20/24 05/20/24 History Allergies Allergy/AdvReac Type Severity Reaction Status Date / Time No Known Allergies Allergy Verified 05/07/23 20:00 Physical Exam Vitals: Vital Signs Temp Pulse Resp BP Pulse Ox FiO2 05/21/24 11:11 35 05/21/24 11:00 86 19 110/73 99 05/21/24 10:00 86 18 129/79 97 35 05/21/24 09:54 35 05/21/24 09:00 98 24 118/79 99 05/21/24 08:00 99.5 F 96 10 L 121/78 100 40 05/21/24 07:43 40 05/21/24 07:00 89 18 113/79 100 05/21/24 06:00 87 18 134/77 100 05/21/24 05:00 91 19 131/90 100 05/21/24 04:17 40 05/21/24 04:00 98.9 F 88 18 117/76 100 40 05/21/24 03:00 85 19 107/73 100 05/21/24 02:00 87 18 131/82 98 05/21/24 01:00 85 18 128/79 100 05/21/24 00:00 83 18 112/71 100 05/20/24 23:44 40 05/20/24 23:43 40 05/20/24 23:22 40 05/20/24 23:18 80 18 123/86 99 05/20/24 23:00 87 28 H 116/81 99 05/20/24 22:00 85 32 H 136/90 100 05/20/24 21:00 80 18 97/69 100 05/20/24 20:05 40 05/20/24 20:00 97.2 F L 73 18 92/62 100 40 05/20/24 19:58 40 05/20/24 19:00 78 18 104/68 99 05/20/24 18:00 76 18 121/81 96 05/20/24 17:00 75 17 102/72 98 05/20/24 16:00 98.0 F 80 18 112/76 99 40 05/20/24 15:24 40 05/20/24 15:00 64 18 103/79 96 05/20/24 14:30 71 18 94/65 98 05/20/24 14:00 72 18 98 05/20/24 13:45 73 18 92/64 98 05/20/24 13:30 72 18 88/68 97 05/20/24 13:15 75 18 106/72 97 05/20/24 13:00 79 18 113/75 100 05/20/24 12:45 72 18 103/74 100 05/20/24 12:30 73 18 104/74 100 05/20/24 12:15 71 18 114/80 100 05/20/24 12:00 98.0 F 68 18 124/92 100 40 05/20/24 11:45 70 18 109/73 99 05/20/24 11:30 70 18 139/88 100 Intake and Output 05/20/24 05/21/24 05/21/24 22:59 06:59 14:59 Intake Total 835.997 762.073 484.123 Output Total 840 720 445 Balance -4.003 42.073 39.123 Intake: IV 225 600 375 Sodium Chloride 0.9% 1, 225 600 375 000 ml @ 75 mls/hr IV . [id number] [facility] Rx#:[id number] Intake, IV Titration 610.997 162.073 109.123 Amount Ampicillin-Sulbactam 1.5 50 gm In Sodium Chloride 0.9 % 50 ml @ 100 mls/hr IVPB Q8HR [facility] Rx#:[id number] Heparin Sod,Pork in 0.45% 5 NaCl 25,000 unit In 0.45 % NaCl 1 250ml.bag @ 11. 494 UNITS/KG/HR 10 mls/hr IV .Q24H [facility] Rx#: [id number] Midazolam HCl 200 mg In 3.783 16.25 Sodium Chloride 0.9% 60 ml @ 1 MG/HR 0.5 mls/hr IV .Q24H [facility] Rx#: [id number] Sodium Chloride 0.9% 1, 375 000 ml @ 75 mls/hr IV . [id number] [facility] Rx#:[id number] propofoL 1,000 mg In 180.997 158.29 92.873 Empty Bag 1 bag @ 15 MCG/ KG/MIN 7.83 mls/hr IV . [id number] [facility] Rx#:[id number] Output: Gastric Drainage 200 200 200 Urine 640 520 245 Other: Voiding Method Indwelling Catheter Indwelling Catheter Indwelling Catheter Weight 84.2 kg ABP, PAP, CO, CI - Last 8 Hours Arterial Blood Pressure 118/59 GENERAL DESCRIPTION: Elderly male intubated on the vent HEENT: Shows Pallor , no scleral icterus. Oral mucous membrane is dry. NECK: Trachea central, no thyromegaly. LUNGS: Unlabored breathing. Decreased breath sounds at the base HEART: S1, S2, regular rate and rhythm. No loud murmur ABDOMEN: Soft, no tenderness , guarding or rigidity, no organomegaly EXTREMITIES: No edema of feet. SKIN: No rash, no masses palpable. NEUROLOGICAL: The patient is sedated on the vent Results CBC & Chem 7: 05/21/24 05:20 05/21/24 18:25 Labs: Abnormal Lab Results - Last 24 Hours (Table) 05/20/24 05/21/24 05/21/24 Range/Units 00:45 05:20 05:20 RBC 4.09 L (4.30-5.90) m/uL Plt Count 46 L (150-450) k/uL Lymphocytes # 0.7 L (1.0-4.8) k/uL ABG pO2 (83-108) mmHg ABG O2 Saturation (94-97) % Sodium 136 L (137-145) mmol/L Chloride 111 H (98-107) mmol/L Carbon Dioxide 20 L (22-30) mmol/L Creatinine 0.57 L (0.66-1.25) mg/dL POC Glucose (mg/dL) 139 H (70-110) mg/dL Calcium 8.1 L (8.4-10.2) mg/dL Total Bilirubin 1.6 H (0.2-1.3) mg/dL Total Protein 5.9 L (6.3-8.2) g/dL Albumin 3.1 L (3.5-5.0) g/dL 05/21/24 Range/Units 05:25 RBC (4.30-5.90) m/uL Plt Count (150-450) k/uL Lymphocytes # (1.0-4.8) k/uL ABG pO2 120 H (83-108) mmHg ABG O2 Saturation 99.1 H (94-97) % Sodium (137-145) mmol/L Chloride (98-107) mmol/L Carbon Dioxide (22-30) mmol/L Creatinine (0.66-1.25) mg/dL POC Glucose (mg/dL) (70-110) mg/dL Calcium (8.4-10.2) mg/dL Total Bilirubin (0.2-1.3) mg/dL Total Protein (6.3-8.2) g/dL Albumin (3.5-5.0) g/dL Assessment and Plan (1) Acute encephalopathy Current Visit: Yes Status: Acute Code(s): G93.40 - ENCEPHALOPATHY, UNSPECIFIED SNOMED Code(s): 42809869 (2) Fever Current Visit: Yes Status: Acute Code(s): R50.9 - FEVER, UNSPECIFIED SNOMED Code(s): 298600616 Plan: 1patient presented to hospital with rigors and chills mental status changes and apparently the patient did have significant vomiting the day before presentation to the hospital and did have extensive workup no significant finding except diverticulitis reported by the radiologist on the CT however keeping in mind significant mental status changes agitation combativeness and fever will point was possible encephalitis with a question of possible herpes versus West Nile in the differential, and will also cover for possible component of aspiration pneumonitis/diverticulitis 2-LP has been discussed with the neurologist however the patient has been on Plavix which was discontinued yesterday hence we will need to wait for at least 5 days before LP could be completed 3-we will check HSV serology, try to obtain a sputum for Gram stain culture 4-discontinue Unasyn 5-we will start the patient on Zosyn and acyclovir pending completion of the workup We will follow on clinical condition and cultures to further adjust medication if needed Thank you for this consultation we will follow the patient along with you Dictation was produced using [employer] dictation software. please excuse any gr ammatical, word or spelling errors. Time with Patient: Greater than 30
[2024-05-22 00:10] LABS: Glucose,Whole Blood 98 mg/dL (70-110)
--- NOTE | 2024-05-22 02:10 | EEG ---
ELECTROENCEPHALOGRAM REPORT PREAMBLE: This is a 64-year-old male with altered mental status. The patient had seizure like activity. The patient had initial abnormal EEG. This is a followup study. EEG FINDINGS: This is a 21-channel digital EEG recorded with video component, utilizing 10/20 international system with referential and bipolar montages. The recording starts and continues with presence of mixed frequencies of diffuse 2 to 3 hertz delta with some superimposed low voltage fast frequency beta activity. Some periods of suppression were also seen. Photic driving response was not seen. During later part of the study, some periods of 5 to 6 hertz theta activity was also seen. No focal or generalized epileptiform activity was seen. IMPRESSION: This is an abnormal EEG due to generalized slowing of moderate to severe degree. This is suggestive of generalized cerebral dysfunction as can be seen with toxic metabolic encephalopathy or related to diffuse structural brain abnormality. Clinical correlation is recommended. No definitive epileptiform activity was seen in this study. When compared to the EEG from 05/20/2024, there is not much change. MMODL / IJN: [id number] /
[2024-05-22 02:16] LABS: HSV I IgG Interp POSITIVE; HSV II IgG Interp Negative (Negative)
[2024-05-22 04:59] LABS: Basophils % (A) 0 %; Eosinophils % (A) 0 %; HCT 36.4 % (39.0-53.0); HGB 12.1 gm/dL (13.0-17.5); Lymphocytes # (A) 0.7 k/uL (1.0-4.8); Lymphocytes % (A) 9 %; MCH 32.3 pg (25.0-35.0); MCHC 33.2 g/dL (31.0-37.0); MCV 97.3 fL (80.0-100.0); Mean Platelet Volume 8.2; Monocytes # (A) 0.4 k/uL (0-1.0); Monocytes % (A) 5 %; Neutrophils # (A) 5.8 k/uL (1.3-7.7); Neutrophils % (A) 84 %; RBC 3.74 m/uL (4.30-5.90); RDW 13.4 % (11.5-15.5); WBC 6.9 k/uL (3.8-10.6)
[2024-05-22 05:02] LABS: Platelet Count 37 k/uL (150-450)
[2024-05-22 05:17] LABS: ABG Base Excess 0.6 mmol/L; ABG HCO3 24 mmol/L (21-25); ABG Oxygen Saturation 98.7 % (94-97); ABG PCO2 34 mmHg (35-45); ABG PH 7.46 (7.35-7.45); ABG PO2 102 mmHg (83-108); ABG TCO2 25 mmol/L (19-24); Allen Test Performed? Yes
[2024-05-22 05:22] LABS: ALT 32 U/L (4-49); AST 31 U/L (17-59); African American GFR (CKD) >90 (>60 ml/min/1.73 sqM); Albumin 2.7 g/dL (3.5-5.0); Alkaline Phosphatase 95 U/L (38-126); Anion Gap 4 mmol/L; Blood Urea Nitrogen 15 mg/dL (9-20); Carbon Dioxide 23 mmol/L (22-30); Chloride 108 mmol/L (98-107); Glucose 104 mg/dL (74-99); Non-African American GFR(CKD) >90 (>60 ml/min/1.73 sqM); Potassium 3.5 mmol/L (3.5-5.1); Sodium 135 mmol/L (137-145); Total Bilirubin 1.9 mg/dL (0.2-1.3); Total Protein 5.5 g/dL (6.3-8.2)
[2024-05-22] MEDS: POTASSIUM BICARBONATE/CIT AC 20 MEQ TABLET.EFF NG-TUBE SCH (05:46)
[2024-05-22 06:29] LABS: Glucose,Whole Blood 102 mg/dL (70-110)
--- NOTE | 2024-05-22 07:49 | XR ---
EXAMINATION TYPE: XR chest 1V portable DATE OF EXAM: 05/22/2024 COMPARISON: 05/21/2024 INDICATION: Tube placement TECHNIQUE: Single frontal view of the chest is obtained. FINDINGS: The heart size is normal. The pulmonary vasculature is normal. There may be a small infiltrate at the left base. There is blunting left costophrenic angle. Pleural effusion is not excluded. Endotracheal tube tip is above the darrion. Nasogastric tube transverses the thorax. IMPRESSION: 1. Small left lower lobe infiltrate. Small left pleural effusion may be present. 2. Lines and catheters discussed above [facility], Workstation: [facility], 05/22/2024 7:47 AM
[2024-05-22] MEDS: FOLIC ACID 1 MG TAB PO SCH (08:36)
--- NOTE | 2024-05-22 10:12 | P.PN ---
Subjective Progress Note Date: 05/22/24 HISTORY OF PRESENTING ILLNESS This is a pleasant 64-year-old with past medical history significant for CAD status post PCI of the RCA October 2022, chronic pain, hyperlipidemia, depression, anxiety who presents secondary to epigastric discomfort, nausea, vomiting, diaphoresis. Patient currently intubated and sedated history is supplied by family members. Family states he had been feeling fine and then within a few hours started having nausea, upset stomach and breaking out in a profuse sweat. They were concerned secondary to some of his symptoms of sweating been similar to his prior cardiac arrest and stenting. He had been doing fairly well and has been over 12 months since his stenting however apparently had been placed on Plavix and aspirin discontinued in the past.. He follows in the office with Dr Robles. He was combative in the emergency department and he required Ativan and became lethargic and required intubation. His lactic acid was significantly elevated at 9 and blood pressure borderline in the 80s over 50s additionally had borderline fever with temperature 100.4. Currently he is intubated and sedated on ventilator. Blood work White blood cell count 13.5, creatinine 0.8, lactic acid 9.5 down to 2.4, troponin 0.07, 0.09, 0.08. EKG showed normal sinus rhythm with no significant ST or T-wave abnormalities. 05/21 Patient seen and examined. Patient remains intubated and sedated. Blood pressures stable off of any vasopressors. Per nursing he has been somewhat restless and was placed Versed. 40% FiO2. Remains on propofol as well. Echo showed preserved EF. EEG was performed with generalized background slowing. 05/22 Patient seen and examined. Patient remains intubated and on mechanical ventilation. Plavix may be discontinued as his last stent was in 2022. He is tentatively scheduled for LP on Friday. Blood pressure 117/62, heart rate 77, pulse ox 100%. Repeat blood work reveals platelet count of 37, hemoglobin 12.1. Creatinine 0.6. PHYSICAL EXAMINATION Vital signs reviewed. CONSTITUTIONAL: No apparent distress, intubated and sedated HEENT: Head is normocephalic. Pupils are equal, round. Sclerae anicteric. Mucous membranes of the mouth are moist. No JVD. No carotid bruit. CHEST EXAMINATION: Lungs are clear to auscultation. No chest wall tenderness is noted on palpation or with deep breathing. HEART EXAMINATION: Regular rate and rhythm. S1, S2 heard. No murmurs, gallops or rub. ABDOMEN: Soft, nontender. Positive bowel sounds. EXTREMITIES: 2+ peripheral pulses, no lower extremity edema and no calf tenderness. NEUROLOGIC EXAMINATION: Patient is intubated and sedated ASSESSMENT Non-STEMI, likely type II mechanism related to septic shock Sepsis with fever, tachycardia, white blood cell count and nausea and vomiting Septic shock Lactic acidosis Thrombocytopenia possibly due to sepsis rule out HIT CAD status post RCA stenting in 2022 Hypertension Hyperlipidemia PLAN Patient with main presentation of nausea, vomiting, fevers and diaphoresis. echo shows preserved EF and mildly elevated troponins appear type II mechanism Presentation mainly appears related to sepsis with significant lactic acidosis. Continue with current supportive care. Discontinue Plavix permanently Obtain HIT panel. Nurse practitioner note has been reviewed, I agree with documented findings and plan of care. Patient was seen and examined. Objective - Vital Signs Vital signs: Vital Signs Temp 98.1 F 05/22/24 04:00 Pulse 77 05/22/24 07:00 Resp 18 05/22/24 07:00 BP 107/73 05/21/24 19:00 Pulse Ox 100 05/22/24 07:00 FiO2 35 05/22/24 07:54 Intake & Output 05/21/24 05/22/24 05/22/24 18:59 06:59 18:59 Intake Total 4242.576 2296.555 220.360 Output Total 1255 570 45 Balance 62.123 1272.555 175.360 Weight 84.2 kg 86.6 kg Intake: IV 918 936 78 Sodium Chloride 0.9% 1, 900 900 75 000 ml @ 75 mls/hr IV . [id number] [facility] Rx#:[id number] pressure bag 18 36 3 Intake, IV Titration 309.123 346.555 92.360 Amount Midazolam HCl 200 mg In 16.25 53.85 17.975 Sodium Chloride 0.9% 60 ml @ 1 MG/HR 0.5 mls/hr IV .Q24H [facility] Rx#: [id number] propofoL 1,000 mg In 292.873 292.705 74.385 Empty Bag 1 bag @ 15 MCG/ KG/MIN 7.83 mls/hr IV . [id number] [facility] Rx#:[id number] Tube Feeding 60 230 20 Other 30 330 30 Output: Gastric Drainage 670 Urine 585 570 45 Other: Voiding Method Indwelling Catheter Indwelling Catheter ABP, PAP, CO, CI - Last Documented Arterial Blood Pressure 117/62 - Labs CBC & Chem 7: 05/22/24 04:15 05/22/24 04:15 Labs: Abnormal Lab Results - Last 24 Hours (Table) 05/21/24 05/21/24 05/21/24 Range/Units 07:38 07:38 11:55 RBC (4.30-5.90) m/uL Hgb (13.0-17.5) gm/dL Hct (39.0-53.0) % Plt Count (150-450) k/uL Lymphocytes # (1.0-4.8) k/uL ABG pH (7.35-7.45) ABG pCO2 (35-45) mmHg ABG Total CO2 (19-24) mmol/L ABG O2 Saturation (94-97) % Hemoglobin (13.0-17.5) gm/dL Sodium (137-145) mmol/L Chloride (98-107) mmol/L Creatinine (0.66-1.25) mg/dL Glucose (74-99) mg/dL Calcium (8.4-10.2) mg/dL Total Bilirubin (0.2-1.3) mg/dL Total Protein (6.3-8.2) g/dL Albumin (3.5-5.0) g/dL Vitamin B12 175.0 L (200.0-944.0) pg/mL Folate 3.50 L (4.40-31.00) ng/mL Urine Protein Trace H (Negative) Urine Ketones 2+ H (Negative) Urine Blood Large H (Negative) Ur Leukocyte Esterase Trace H (Negative) Urine RBC 127 H (0-5) /hpf Urine WBC 6 H (0-5) /hpf Urine Bacteria Rare H (None) /hpf Urine Mucus Occasional H (None) /hpf 05/22/24 05/22/24 05/22/24 Range/Units 04:15 04:15 04:52 RBC 3.74 L (4.30-5.90) m/uL Hgb 12.1 L (13.0-17.5) gm/dL Hct 36.4 L (39.0-53.0) % Plt Count 37 L (150-450) k/uL Lymphocytes # 0.7 L (1.0-4.8) k/uL ABG pH 7.46 H (7.35-7.45) ABG pCO2 34 L (35-45) mmHg ABG Total CO2 25 H (19-24) mmol/L ABG O2 Saturation 98.7 H (94-97) % Hemoglobin 12.3 L (13.0-17.5) gm/dL Sodium 135 L (137-145) mmol/L Chloride 108 H (98-107) mmol/L Creatinine 0.60 L (0.66-1.25) mg/dL Glucose 104 H (74-99) mg/dL Calcium 8.0 L (8.4-10.2) mg/dL Total Bilirubin 1.9 H (0.2-1.3) mg/dL Total Protein 5.5 L (6.3-8.2) g/dL Albumin 2.7 L (3.5-5.0) g/dL Vitamin B12 (200.0-944.0) pg/mL Folate (4.40-31.00) ng/mL Urine Protein (Negative) Urine Ketones (Negative) Urine Blood (Negative) Ur Leukocyte Esterase (Negative) Urine RBC (0-5) /hpf Urine WBC (0-5) /hpf Urine Bacteria (None) /hpf Urine Mucus (None) /hpf Microbiology - Last 24 Hours (Table) 05/20/24 02:28 Blood Culture - Preliminary Blood
[2024-05-22 11:40] LABS: Glucose,Whole Blood 90 mg/dL (70-110)
--- NOTE | 2024-05-22 12:20 | P.PN ---
Subjective Progress Note Date: 05/22/24 Principal diagnosis: Acute respiratory failure and altered mental status Patient is a 64-year-old male with past medical history significant for coronary artery disease with previous PCI/stent, syncope, hypertension, hyperlipidemia, among other things. Patient is currently intubated to the mechanical ventilator, unable to provide any information for HPI. Patient presented e mergency department early this morning. Apparently, family heard the patient fall from a different room. They found him on the floor shaking with reported seizure-like activity. When EMS arrived patient was confused and combative. They did give 10 mg of IM Versed. On arrival to the emergency department, patient was intubated by the ER provider. He is underwent an extensive workup. CT of the brain and C-spine did not show any acute intracranial hemorrhage, no midline shift or mass effect. No C-spine fracture or subluxation. Apparently, the patient was having nausea and vomiting and fever. A CT of the chest abdomen and pelvis did not show obvious saddle PE. No acute intra-abdominal process. There was some abdominal wall thickening of the sigmoid colon, likely from chronic diverticulitis. Incidentally, a 10 mm nonobstructive calculus seen in the mildly dilated right renal pelvis. Patient remains in the emergency department on my evaluation, in trauma bay 2. Remains intubated mechanical ventilator with current ventilator settings including assist-control, respiratory rate 18, tidal volume 450, FiO2 50%, PEEP of 5. Postintubation ABG includes a PaO2 of greater than 420, pCO2 of 40, and pH of 7.3. This was done on a FiO2 of 100%. He is on propofol currently infusing at 25 mcg/kg/min. Synchronous with current ventilator settings. Fentanyl is also infusing at 2 mcg/kg/h. Heparin infusing per protocol. Patient did have some elevated troponins on presentation of the 0.07 and 0.09 respectively. EKG: Sinus tachycardia, rate 101 bpm, no obvious acute ischemic changes. Body temperature now hypothermic, currently 36 C with Porsha hugger on, heart rate 83 bpm, blood p ressure normotensive at 105/71 mmHg, SpO2 98%. CBC: WBC count 13.5, hemoglobin 17, hematocrit 52.7, platelets 123. CMP: Sodium 137, potassium 4.2, chloride 105, serum bicarb 12, BUN 28, creatinine 0.8, glucose 144. Lactic elevated at 9.5. LFTs unremarkable. Patient did have a fever of 100 degrees on arrival to the emergency department. Was given dose of cefepime. UA not very remarkable for infection, rare bacteria. Urine drug screen positive for opiates, benzodiazepines, marijuana. Serum alcohol level less than 10. Patient was loaded with Keppra in the emergency department. No further seizure-like activity noted. Patient was evaluated today on 05/21/2024. Remains in the ICU, intubated and mechanically ventilated, patient remains on antibiotics remains on seizure medications he is on assist-control rate of 18 tidal volume 450 FiO2 40% and PEEP of 5 ABG showed a pO2 of 120 pCO2 36 pH of 7.42 hands his FiO2 was cut down to 35%. Patient became extremely agitated last night and early this morning, and he was not mentally appropriate, hence required more sedation to be able to ventilating properly we had to increase his Versed to 5 mg/h he remains on propofol at 45 mcg/kg/min. Patient also spiked a temp yesterday, and neurology is likely to recommend lumbar puncture on this patient today. His EEG showed mostly slowing activity but no seizures. Patient is maintained on Keppra his carotid studies are negative his echocardiogram showed good LV function with ejection fraction of 60 to 65%, no significant valvular heart disease. I was planning to consider weaning on this patient today, however with his present condition this is placed on hold. On admission patient was placed on Unasyn for possible aspiration pneumonia, chest x-ray today is reassuring. Minimal atel ectasis no clear-cut evidence of pneumonia. However considering his intermittent fevers, will continue on Unasyn for now. And again the patient may require lumbar puncture todayWBC count today is 8 hemoglobin is 13.3 electrolytes are normal potassium is a bit low at 3.5, Today on 05/22/2024, remains in the ICU, intubated and mechanically ventilated. No lumbar puncture was done for some reason, however the patient antibiotics were adjusted seen by infectious disease and now he is covered with acyclovir and Zosyn. He was on Unasyn initially. Patient remains on mechanical ventilation, assist-control rate of 18 tidal volume 450 FiO2 35% and PEEP of 5 ABG showed a pO2 of 102 pCO2 34 pH of 7.46. Remains on Versed at 6 mg/h propofol at 50 mcg/kg/min IV fluid 75 cc/h of 0.9 normal saline. Patient is now off Plavix, apparently the lumbar puncture will not be done until he is off Plavix for 5 days. Chest x-ray showed minimal basilar atelectasis especially of the left base no clear-cut evidence of pneumonia. EEG showed generalized slowing of moderate to severe degree. Suggestive of generalized cerebral dysfunction. No definite seizure focus. CBC is relatively normal basic metabo lic profile is relatively normal renal profile is normal Objective - Vital Signs Vital signs: Vital Signs Temp 97.9 F 05/22/24 08:00 Pulse 95 05/22/24 11:00 Resp 21 05/22/24 11:00 BP 107/73 05/21/24 19:00 Pulse Ox 96 05/22/24 11:00 FiO2 35 05/22/24 12:07 Intake & Output 05/21/24 05/22/24 05/22/24 18:59 06:59 18:59 Intake Total 1587.208 5176.555 883.819 Output Total 1255 570 390 Balance 62.123 1272.555 493.819 Weight 84.2 kg 86.6 kg Intake: IV 918 936 390 Sodium Chloride 0.9% 1, 900 900 375 000 ml @ 75 mls/hr IV . [id number] [facility] Rx#:[id number] pressure bag 18 36 15 Intake, IV Titration 309.123 346.555 443.819 Amount Acyclovir Sodium 850 mg 250 In Sodium Chloride 0.9% 250 ml @ 267 mls/hr IVPB Q8HR [facility] Rx#:[id number] Midazolam HCl 200 mg In 16.25 53.85 19.434 Sodium Chloride 0.9% 60 ml @ 1 MG/HR 0.5 mls/hr IV .Q24H [facility] Rx#: [id number] Piperacillin-Tazobactam 3 100 .375 gm In Sodium Chloride 0.9% 100 ml @ 25 mls/hr IVPB Q8HR [facility] Rx# :[id number] propofoL 1,000 mg In 292.873 292.705 74.385 Empty Bag 1 bag @ 15 MCG/ KG/MIN 7.83 mls/hr IV . [id number] [facility] Rx#:[id number] Tube Feeding 60 230 20 Other 30 330 30 Output: Gastric Drainage 670 Urine 585 570 390 Other: Voiding Method Indwelling Catheter Indwelling Catheter Indwelling Catheter ABP, PAP, CO, CI - Last Documented Arterial Blood Pressure 140/63 - Exam GENERAL EXAM: Reveals 64-year-old white male intubated mechanically ventilated sedated on propofol and Versed. HEAD: Normocephalic and atraumatic EYES: Normal reaction of pupils, equal size. No nystagmus. Nonicteric sclera NOSE: Clear with pink turbinates. THROAT: No erythema or exudates. NECK: No masses, no JVD. CHEST: No chest wall deformity. LUNGS: Symmetrical chest expansion, clear breath sound bilaterally no crackles rhonchi or wheezes CVS: S1 and S2 normal with no audible murmur, regular rhythm. No extra heart sounds ABDOMEN: Soft nontender no megaly no rebound no guarding positive bowel sounds SKIN: No rashes CENTRAL NERVOUS SYSTEM: Sedated on propofol and Versed: Could not assess at this time. EXTREMITIES: No clubbing edema or cyanosis, excellent pulses bilaterally. - Labs CBC & Chem 7: 05/22/24 04:15 05/22/24 09:17 Labs: Abnormal Lab Results - Last 24 Hours (Table) 05/22/24 05/22/24 05/22/24 Range/Units 04:15 04:15 04:52 RBC 3.74 L (4.30-5.90) m/uL Hgb 12.1 L (13.0-17.5) gm/dL Hct 36.4 L (39.0-53.0) % Plt Count 37 L (150-450) k/uL Lymphocytes # 0.7 L (1.0-4.8) k/uL ABG pH 7.46 H (7.35-7.45) ABG pCO2 34 L (35-45) mmHg ABG Total CO2 25 H (19-24) mmol/L ABG O2 Saturation 98.7 H (94-97) % Hemoglobin 12.3 L (13.0-17.5) gm/dL Sodium 135 L (137-145) mmol/L Chloride 108 H (98-107) mmol/L Creatinine 0.60 L (0.66-1.25) mg/dL Glucose 104 H (74-99) mg/dL Calcium 8.0 L (8.4-10.2) mg/dL Total Bilirubin 1.9 H (0.2-1.3) mg/dL Total Protein 5.5 L (6.3-8.2) g/dL Albumin 2.7 L (3.5-5.0) g/dL Microbiology - Last 24 Hours (Table) 05/20/24 02:28 Blood Culture - Preliminary Blood Assessment and Plan Assessment: Impression: Altered mental status, related to acute syncopal episode versus seizure and possibly postictal phase. Acute encephalopathy Acute sepsis primary source is not clear at this point. Concerned about [employer] source of infection seen by infectious disease and urology eventually planning lumbar puncture in the meantime placed empirically on Zosyn and acyclovir. Acute syncopal episode versus seizure Acute respiratory failure requiring intubation mechanical ventilation mostly to protect his airways. Considering his mental status on presentation Elevated troponin History of coronary artery disease with previous PCI/stent/RCA. Dyslipidemia Benign essential hypertension Marijuana smoker Recommendation: Continue ventilatory support Continue antibiotics, as per infectious disease on the case. Consider nutritional support/enteral feeding Continue present supportive care measures Continue GI DVT prophylaxis Continue seizure precautions as advised by neurology Consider holding Versed and propofol today, and address mental status of these medications could consider even a trial with Precedex Not ready for any weaning at this point considering his overall mental status Patient is critically ill Critical care time is over 30-minute Time with Patient: Greater than 30
--- NOTE | 2024-05-22 12:47 | P.PN ---
Subjective Progress Note Date: 05/21/24 Patient was seen for follow-up. Patient continues to be on mechanical ventilation, sedated with propofol 55 mcg/kg/min. As per nursing report, when sedation was decreased to 45 mcg/kg/min, patient becomes aggressive, hostile flips, does not follow directions. He becomes very restless, trying to get out of bed swinging legs. Therefore he is back on sedation with propofol, as well as now on Versed 6 mg/h. I spoke to patient's and patient's daughter Daisy, who mentions that for last couple of months, patient has had personality change. He becomes easily agitated. He is quick to react to any negative situation. He would yell, stamp and then becomes quiet 5 minutes later as if nothing happened. He used to be very calm, would not react like he does, out of situation, and becomes unreas onably upset. He would walk away fine a minute later. Family also mentions that patient lives near [place] and there are a lot of bugs. Concerned about [place]. Patient is currently on Plavix prior to arrival to the hospital. The last dose he received for sure was Friday. On Friday he also received a dose, but he has been throwing up all day, therefore family is not sure if patient was able to keep up with the Plavix or threw up. He was having fever not feeling well for a day before arrival. Objective - Vital Signs Vital signs: Vital Signs Temp 99.1 F 05/21/24 12:00 Pulse 84 05/21/24 12:00 Resp 20 05/21/24 12:00 BP 124/80 05/21/24 12:00 Pulse Ox 100 05/21/24 12:00 FiO2 40 05/21/24 12:00 Intake & Output 05/20/24 05/21/24 05/21/24 18:59 06:59 18:59 Intake Total 7700.727 1835.565 659.123 Output Total 1075 970 970 Balance 108.816 144.565 -310.877 Weight 84.2 kg 84.2 kg Intake: IV 825 450 Sodium Chloride 0.9% 1, 825 450 000 ml @ 75 mls/hr IV . [id number] [facility] Rx#:[id number] Intake, IV Titration 1183.816 289.565 209.123 Amount Ampicillin-Sulbactam 1.5 50 gm In Sodium Chloride 0.9 % 50 ml @ 100 mls/hr IVPB Q8HR [facility] Rx#:[id number] Heparin Sod,Pork in 0.45% 55 NaCl 25,000 unit In 0.45 % NaCl 1 250ml.bag @ 11. 494 UNITS/KG/HR 10 mls/hr IV .Q24H [facility] Rx#: [id number] Midazolam HCl 200 mg In 3.783 16.25 Sodium Chloride 0.9% 60 ml @ 1 MG/HR 0.5 mls/hr IV .Q24H [facility] Rx#: [id number] Sodium Chloride 0.9% 1, 825 000 ml @ 75 mls/hr IV . [id number] [facility] Rx#:[id number] fentaNYL (PF). 1,000 mcg 62.858 In Sodium Chloride 0.9% 80 ml @ 0.5 MCG/KG/HR 4. 35 mls/hr IV .Q23H [facility] Rx #:[id number] propofoL 1,000 mg In 173.080 285.782 192.873 Empty Bag 1 bag @ 15 MCG/ KG/MIN 7.83 mls/hr IV . [id number] [facility] Rx#:[id number] propofoL 1,000 mg In 17.878 Empty Bag 1 bag @ 20 MCG/ KG/MIN 10.44 mls/hr IV . [id number] [facility] Rx#:[id number] Output: Gastric Drainage 200 200 670 Urine 875 770 300 Other: Voiding Method Indwelling Catheter Indwelling Catheter Indwelling Catheter ABP, PAP, CO, CI - Last Documented Arterial Blood Pressure 100/53 - Exam Patient at present is sedated with propofol 55 mcg/kg/min. Also on Versed 6 mg/h. No obvious seizure-like activity. Patient's pupils are equal, round and reacting. Oculocephalics are absent. Corneals are present. Patient is breathing over the ventilator. Patient does slightly grimace on nailbed pressure. - Labs CBC & Chem 7: 05/22/24 04:15 05/22/24 09:17 Labs: Abnormal Lab Results - Last 24 Hours (Table) 05/20/24 05/21/24 05/21/24 Range/Units 00:45 05:20 05:20 RBC 4.09 L (4.30-5.90) m/uL Plt Count 46 L (150-450) k/uL Lymphocytes # 0.7 L (1.0-4.8) k/uL ABG pO2 (83-108) mmHg ABG O2 Saturation (94-97) % Sodium 136 L (137-145) mmol/L Chloride 111 H (98-107) mmol/L Carbon Dioxide 20 L (22-30) mmol/L Creatinine 0.57 L (0.66-1.25) mg/dL POC Glucose (mg/dL) 139 H (70-110) mg/dL Calcium 8.1 L (8.4-10.2) mg/dL Total Bilirubin 1.6 H (0.2-1.3) mg/dL Total Protein 5.9 L (6.3-8.2) g/dL Albumin 3.1 L (3.5-5.0) g/dL Vitamin B12 (200.0-944.0) pg/mL Folate (4.40-31.00) ng/mL Urine Protein (Negative) Urine Ketones (Negative) Urine Blood (Negative) Ur Leukocyte Esterase (Negative) Urine RBC (0-5) /hpf Urine WBC (0-5) /hpf Urine Bacteria (None) /hpf Urine Mucus (None) /hpf 05/21/24 05/21/24 05/21/24 Range/Units 05:25 07:38 07:38 RBC (4.30-5.90) m/uL Plt Count (150-450) k/uL Lymphocytes # (1.0-4.8) k/uL ABG pO2 120 H (83-108) mmHg ABG O2 Saturation 99.1 H (94-97) % Sodium (137-145) mmol/L Chloride (98-107) mmol/L Carbon Dioxide (22-30) mmol/L Creatinine (0.66-1.25) mg/dL POC Glucose (mg/dL) (70-110) mg/dL Calcium (8.4-10.2) mg/dL Total Bilirubin (0.2-1.3) mg/dL Total Protein (6.3-8.2) g/dL Albumin (3.5-5.0) g/dL Vitamin B12 175.0 L (200.0-944.0) pg/mL Folate 3.50 L (4.40-31.00) ng/mL Urine Protein (Negative) Urine Ketones (Negative) Urine Blood (Negative) Ur Leukocyte Esterase (Negative) Urine RBC (0-5) /hpf Urine WBC (0-5) /hpf Urine Bacteria (None) /hpf Urine Mucus (None) /hpf 05/21/24 Range/Units 11:55 RBC (4.30-5.90) m/uL Plt Count (150-450) k/uL Lymphocytes # (1.0-4.8) k/uL ABG pO2 (83-108) mmHg ABG O2 Saturation (94-97) % Sodium (137-145) mmol/L Chloride (98-107) mmol/L Carbon Dioxide (22-30) mmol/L Creatinine (0.66-1.25) mg/dL POC Glucose (mg/dL) (70-110) mg/dL Calcium (8.4-10.2) mg/dL Total Bilirubin (0.2-1.3) mg/dL Total Protein (6.3-8.2) g/dL Albumin (3.5-5.0) g/dL Vitamin B12 (200.0-944.0) pg/mL Folate (4.40-31.00) ng/mL Urine Protein Trace H (Negative) Urine Ketones 2+ H (Negative) Urine Blood Large H (Negative) Ur Leukocyte Esterase Trace H (Negative) Urine RBC 127 H (0-5) /hpf Urine WBC 6 H (0-5) /hpf Urine Bacteria Rare H (None) /hpf Urine Mucus Occasional H (None) /hpf Assessment and Plan Assessment: * Altered mental status, unclear cause. Rule out postictal state. Rule out other toxic metabolic causes, rule out encephalitis. * New onset seizure versus convulsive syncope. Unclear cause. * Respiratory failure, on mechanical ventilation * Lactic acidosis * Non-STEMI * CAD * History of liver disease * Chronic low back pain * Hypertension * Hyperlipidemia * Depression Plan: * Repeat EEG performed today was again abnormal due to generalized slowing of moderate to severe degree. No changes compared to the EEG from yesterday. * Initial EEG on 05/20/2024 was abnormal due to background slowing of moderate to severe degree. This suggestive of generalized cerebral dysfunction, as can be seen with toxic metabolic encephalopathy related to diffuse structural brain abnormality. Clinical correlation is recommended. No epileptiform activity was seen. * Empirically continue Keppra 1000 mg IV twice daily. * Ammonia level < 9, B12 175, folate 3.50, blood cultures so far negative. * 2D echo revealed normal LV function with EF 60 to 65%. No obvious regional wall motion abnormalities. Normal left atrial size. No valvular abnormalities. * Carotid Doppler revealed less than 50% stenosis of bilateral carotid bifurcations. Antegrade flow in both vertebral arteries. * Initial CT head is normal. May need repeat CT head in 24 to 48 hours. * Cardiology on board for elevated cardiac enzymes. Patient is off Plavix at this time. * Patient had a low-grade temperature. Infectious disease consulted. Patient started on acyclovir and also on Zosyn. Lumbar puncture was considered to rule out encephalitis. However patient used to be on Plavix. He took the dose on 05/18/2024, but on 05/19/2024, he has been throwing up all day. Patient's daughter believes that he may not have absorbed the Plavix. Therefore lumbar puncture cannot be completed until Friday or Friday. Discussed with patient's family, ID and primary physician. * Other medical management as per IM and other specialties on board.
--- NOTE | 2024-05-22 13:44 | P.PN ---
Subjective Progress Note Date: 05/22/24 Principal diagnosis: Reason for follow-up is fever question of encephalitis Patient is a 64-year-old male with a past medical history significant for coronary disease reflux hypertension [place], patient was brought into the hospital with an episode of nausea vomiting agitation and seizure-like activity he did have low-grade fever got elevated to protect his airways. On today's evaluation that is 05/22/2024 patient remains to be afebrile, the patient remains to be intubated on the vent FiO2 is current down to 35% no significant purulent secretion through the ET patient not requiring any pressor support no vomiting or diarrhea has been reported. 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 [id number] [facility] Rx#:[id number] pressure bag 18 36 15 Intake, IV Titration 309.123 346.555 443.819 Amount Acyclovir Sodium 850 mg 250 In Sodium Chloride 0.9% 250 ml @ 267 mls/hr IVPB Q8HR [facility] Rx#:[id number] Midazolam HCl 200 mg In 16.25 53.85 19.434 Sodium Chloride 0.9% 60 ml @ 1 MG/HR 0.5 mls/hr IV .Q24H [facility] Rx#: [id number] Piperacillin-Tazobactam 3 100 .375 gm In Sodium Chloride 0.9% 100 ml @ 25 mls/hr IVPB Q8HR [facility] Rx# :[id number] propofoL 1,000 mg In 292.873 292.705 74.385 Empty Bag 1 bag @ 15 MCG/ KG/MIN 7.83 mls/hr IV . [id number] [facility] Rx#:[id number] Tube Feeding 60 230 20 Other 30 330 30 Output: Gastric Drainage 670 Urine 585 570 390 Other: Voiding Method Indwelling Catheter Indwelling Catheter Indwelling Catheter ABP, PAP, CO, CI - Last Documented Arterial Blood Pressure 140/63 - Exam GENERAL DESCRIPTION: An elderly male intubated on the vent RESPIRATORY SYSTEM: Unlabored breathing , decreased breath sounds at bases HEART: S1 S2 regular rate and rhythm , ABDOMEN: Soft , no tenderness EXTREMITIES: No edema feet - Labs CBC & Chem 7: 05/22/24 04:15 05/22/24 09:17 Labs: Abnormal Lab Results - Last 24 Hours (Table) 05/21/24 05/21/24 05/21/24 Range/Units 07:38 07:38 11:55 RBC (4.30-5.90) m/uL Hgb (13.0-17.5) gm/dL Hct (39.0-53.0) % Plt Count (150-450) k/uL Lymphocytes # (1.0-4.8) k/uL ABG pH (7.35-7.45) ABG pCO2 (35-45) mmHg ABG Total CO2 (19-24) mmol/L ABG O2 Saturation (94-97) % Hemoglobin (13.0-17.5) gm/dL Sodium (137-145) mmol/L Chloride (98-107) mmol/L Creatinine (0.66-1.25) mg/dL Glucose (74-99) mg/dL Calcium (8.4-10.2) mg/dL Total Bilirubin (0.2-1.3) mg/dL Total Protein (6.3-8.2) g/dL Albumin (3.5-5.0) g/dL Vitamin B12 175.0 L (200.0-944.0) pg/mL Folate 3.50 L (4.40-31.00) ng/mL Urine Protein Trace H (Negative) Urine Ketones 2+ H (Negative) Urine Blood Large H (Negative) Ur Leukocyte Esterase Trace H (Negative) Urine RBC 127 H (0-5) /hpf Urine WBC 6 H (0-5) /hpf Urine Bacteria Rare H (None) /hpf Urine Mucus Occasional H (None) /hpf 05/22/24 05/22/24 05/22/24 Range/Units 04:15 04:15 04:52 RBC 3.74 L (4.30-5.90) m/uL Hgb 12.1 L (13.0-17.5) gm/dL Hct 36.4 L (39.0-53.0) % Plt Count 37 L (150-450) k/uL Lymphocytes # 0.7 L (1.0-4.8) k/uL ABG pH 7.46 H (7.35-7.45) ABG pCO2 34 L (35-45) mmHg ABG Total CO2 25 H (19-24) mmol/L ABG O2 Saturation 98.7 H (94-97) % Hemoglobin 12.3 L (13.0-17.5) gm/dL Sodium 135 L (137-145) mmol/L Chloride 108 H (98-107) mmol/L Creatinine 0.60 L (0.66-1.25) mg/dL Glucose 104 H (74-99) mg/dL Calcium 8.0 L (8.4-10.2) mg/dL Total Bilirubin 1.9 H (0.2-1.3) mg/dL Total Protein 5.5 L (6.3-8.2) g/dL Albumin 2.7 L (3.5-5.0) g/dL Vitamin B12 (200.0-944.0) pg/mL Folate (4.40-31.00) ng/mL Urine Protein (Negative) Urine Ketones (Negative) Urine Blood (Negative) Ur Leukocyte Esterase (Negative) Urine RBC (0-5) /hpf Urine WBC (0-5) /hpf Urine Bacteria (None) /hpf Urine Mucus (None) /hpf Microbiology - Last 24 Hours (Table) 05/20/24 02:28 Blood Culture - Preliminary Blood Assessment and Plan (1) Acute encephalopathy Current Visit: Yes Status: Acute Code(s): G93.40 - ENCEPHALOPATHY, UNSPECIFIED SNOMED Code(s): 12708836 (2) Fever Current Visit: Yes Status: Acute Code(s): R50.9 - FEVER, UNSPECIFIED SNOM ED Code(s): 979607780 Plan: 1patient presented to hospital with rigors and chills mental status changes and apparently the patient did have significant vomiting the day before presentation to the hospital and did have extensive workup no significant finding except diverticulitis reported by the radiologist on the CT however keeping in mind significant mental status changes agitation combativeness and fever will point was possible encephalitis with a question of possible herpes versus West Nile in the differential, and will also cover for possible component of aspiration pneumonitis/diverticulitis 2-LP has been discussed with the neurologist however the patient has been on Plavix which was discontinued 05/20/2024 hence we will need to wait for at least 5 days before LP could be completed 3-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 please excuse any grammatical, word or spelling errors. Time with Patient: Less than 30
--- NOTE | 2024-05-22 14:45 | P.PN ---
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 patient for many years with active medical history of CAD post PCI and stent placement of the RCA back in October 2022, history of chronic clinical hepatitis with early cirrhosis, history of chronic lower back pain with spinal stenosis, hypertension, hyperlipidemia, hyperglycemia, chronic lower back pain, recurrent pancreatitis, chronic history of neuropathy of the lower extremity, chronic kidney disease stage III, with history of BPH mild anxiety and edema who brought to the emergency department by EMS that patient apparently through the day developed to have severe nausea vomiting with recurrent abdominal pain according family heard stump with falling found him shaking and having seizure-like activity on the floor EMS were called to the scene when arrived found to have confused and combative they gave him 10 mg of Versed which made him very calm had no further seizure activity at the time. At the time of his arrival to the emergency department patient was very confused combative hypoxic and having worsening symptoms and that being in intubated and kept on mechanical ventilation and on sedation. At that point in the ER ended up doing CT of the brain and C-spine did not show any acute intracranial hemorr brando or abnormality and no midline shift, C-spine failed to show any fracture or subluxation. CT of the abdomen and pelvis did not show any obvious saddle pulmonary embolism no acute intracranial abdominal process was seen slight some abdominal wall thickening in the sigmoid colon most likely from chronic diverticulitis and incidental 10 mm of nonobstructive calculus within the mid dilated right renal pelvis. Patient was sedated on mechanical ventilation In the emergency department was giving cefepime UA was positive at the time drug screen was positive for opiates benzodiazepine and marijuana which patient taking medication and admitted taking marijuana every so often. Risk Clinic and given duration patient be admitted to the ICU. 02/19/2024: Patient still intubated on mechanical ventilation in the ICU he is extremely agitated when trying to back off sedation, still with all the collected information from family seems like he had seizure EEG did not show any seizure activity at this point. With his low-grade temperature and not finding any source of infection or reason for his symptoms neurology is leaning toward having to do lumbar puncture for collection of spinal fluid for further analysis problem the patient had last dose of antiplatelet agent within the last 4 days which will be a close this time to be able to do LP will be around Friday next week. Meanwhile further recommendation by infectious disease for other infection specially infectious process like Lyme or other pathogen might be the source stomach not been found out. Echocardiogram was performed showed good ejection fraction with no valvular heart disease. Antibiotic was changed by infectious disease to Zosyn from cefepime. Laboratory value with white blood cell is down to 8000 no anemia urine test still showing some RBC more than WBC with large amount of blood and trace bacteria. Chest x-ray shows no acute cardiopulmonary process. REVIEW OF SYSTEMS: CONSTITUTIONAL: Sedated on mechanical ventilation. EYES: No icterus sclerae, no conjunctivitis. EARS, NOSE, MOUTH, THROAT, and FACE: No sore throat, lymphadenopathy, carotid bruits or deformity. ET tube. RESPIRATORY: No SOB cough or wheezes. CARDIOVASCULAR: Intubated. No obvious complaint of chest pain or angina at times despite elevated troponin. GASTROINTESTINAL: Soft positive bowel sounds slight discomfort in the left lower quadrant area and right upper quadrant area as well no rebound or rigidity. GENITOURINARY: Negative for Hematuria or UTI, no kidney stones. INTEGUMENT/BREAST: Negative for any muscular injury with mild osteoarthritis.. HEMATOLOGIC/LYMPHATIC: Negative for bleed or purpura. MUSCULOSKELTAL: Negative for Myalgia or arthralgia. NEURLOGICAL: Sedated anything in ventilation. BEHAVIORAL/PSYCH: Negative. ENDOCRINE: Negative. PHYSICAL EXAMINATION: General Appearance: Sedated on mechanical ventilation with a ET tube in place. Neck HEENT: Supple, no lymphadenopathy, no thyroid enlargement, no carotid bruits. Lungs: Decreased breath sound bilaterally fine rhonchi mild expiratory wheezes. Chest Wall: Decreased expansion with deep inspiration no tenderness and no deformity was found on exam, no costochondral pain or discomfort. Heart: Regular rate and rhythm, S1, S2 normal, no murmur, rub or gallop. Back: Symmetric, no curvature, ROM normal, no CVA tenderness. Abdomen: Soft with slight distention and slight left lower quadrant and mid abdominal region discomfort with no rebound or rigidity. Extremities: Extremities normal, atraumatic, no cyanosis or edema. Pulses: 2+ and symmetric. Skin: Skin color, texture, tugor normal, no rashes or lesions. Neurologic: Sedated on mechanical ventilation. ASSESSMENT AND PLAN: _Altered mental status: Most likely secondary to seizure, could be encephalopathy mostly metabolic will try to correct underlying disease also patient might be having manage STEMI might be a cause of the problem. Still no major finding at this point. _Seizure like activity: Witnessed per family with the way how described patient is sedated still on Keppra and he is EEG was negative. _Respiratory failure: Remain on mechanical ventilation with assisted control and FiO2 of 35% _Non-STEMI: Most likely type II OR no real myocardial infarction or blockage still seen cardiology and echocardiogram was done. _Fever chills and infection not clear etiology yet, remain on antibiotic was switched to Zosyn from cefepime and seem like might be started on acyclovir as well. _History of atherosclerotic heart disease: Post angioplasty and stent placement. _Severe GERD: Remain on proton pump inhibitor. 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 _Chronic lower back pain post surgical intervention: Remain on pain meds and muscle relaxer at this point. _Gastroparesis: Has been on Protonix and Reglan in the past with good follow-up. _Hypertension: Remain on metoprolol titrate 25 mg twice a day his blood pressure still high will add smaller dose of ARB. _Hyperlipidemia: Remain on Lipitor 40 mg a day. _Chronic depression anxiety attacks has been on escitalopram 20 and alprazolam 0.5 mg twice a day. Discussion: Up till now still no clear evidence to what exactly happened with patient had encephalopathy with seizure-like activity has been treated manage whether you have any finding of central nervous system or not his original CAT scan is negative neurology planning eventually for LP when possible in the meanwhile collecting data about herpes, Lyme, West Nile and other all are in the process. Objective - Vital Signs Vital signs: Vital Signs Temp 98.9 F 05/21/24 04:00 Pulse 91 05/21/24 05:00 Resp 19 05/21/24 05:00 BP 131/90 05/21/24 05:00 Pulse Ox 100 05/21/24 05:00 FiO2 40 05/21/24 04:17 Intake & Output 05/20/24 05/20/24 05/21/24 06:59 18:59 06:59 Intake Total 73.818 5806.348 2999.565 Output Total 1075 725 Balance 73.818 108.816 314.565 Weight 86.999 kg 84.2 kg Intake: IV 750 Sodium Chloride 0.9% 1, 750 000 ml @ 75 mls/hr IV . [id number] [facility] Rx#:[id number] Intake, IV Titration 73.818 1183.816 289.565 Amount Ampicillin-Sulbactam 1.5 50 gm In Sodium Chloride 0.9 % 50 ml @ 100 mls/hr IVPB Q8HR [facility] Rx#:[id number] Heparin Sod,Pork in 0.45% 55 NaCl 25,000 unit In 0.45 % NaCl 1 250ml.bag @ 11. 494 UNITS/KG/HR 10 mls/hr IV .Q24H [facility] Rx#: [id number] Midazolam HCl 200 mg In 3.783 Sodium Chloride 0.9% 60 ml @ 1 MG/HR 0.5 mls/hr IV .Q24H [facility] Rx#: [id number] Sodium Chloride 0.9% 1, 825 000 ml @ 75 mls/hr IV . [id number] [facility] Rx#:[id number] fentaNYL (PF). 1,000 mcg 5.437 62.858 In Sodium Chloride 0.9% 80 ml @ 0.5 MCG/KG/HR 4. 35 mls/hr IV .Q23H [facility] Rx #:[id number] propofoL 1,000 mg In 173.080 285.782 Empty Bag 1 bag @ 15 MCG/ KG/MIN 7.83 mls/hr IV . [id number] [facility] Rx#:[id number] propofoL 1,000 mg In 68.381 17.878 Empty Bag 1 bag @ 20 MCG/ KG/MIN 10.44 mls/hr IV . [id number] [facility] Rx#:[id number] Output: Gastric Drainage 200 Urine 875 725 Other: Voiding Method Indwelling Catheter Indwelling Catheter - Labs CBC & Chem 7: 05/22/24 04:15 05/22/24 09:17 Labs: Abnormal Lab Results - Last 24 Hours (Table) 05/20/24 05/20/24 05/20/24 Range/Units 09:09 09:09 09:09 WBC 11.0 H (3.8-10.6) k/uL RBC (4.30-5.90) m/uL Plt Count 82 L (150-450) k/uL Neutrophils # 8.8 H (1.3-7.7) k/uL Lymphocytes # (1.0-4.8) k/uL APTT 45.8 H (22.0-30.0) sec ABG pO2 (83-108) mmHg ABG O2 Saturation (94-97) % Sodium 136 L (137-145) mmol/L Chloride 109 H (98-107) mmol/L Carbon Dioxide 19 L (22-30) mmol/L BUN 27 H (9-20) mg/dL Creatinine 0.65 L (0.66-1.25) mg/dL Glucose 102 H (74-99) mg/dL Calcium 8.1 L (8.4-10.2) mg/dL Magnesium 2.4 H (1.6-2.3) mg/dL Total Bilirubin (0.2-1.3) mg/dL Troponin I (0.000-0.034) ng/mL Total Protein (6.3-8.2) g/dL Albumin (3.5-5.0) g/dL 05/20/24 05/21/24 05/21/24 Range/Units 09:09 05:20 05:20 WBC (3.8-10.6) k/uL RBC 4.09 L (4.30-5.90) m/uL Plt Count 46 L (150-450) k/uL Neutrophils # (1.3-7.7) k/uL Lymphocytes # 0.7 L (1.0-4.8) k/uL APTT (22.0-30.0) sec ABG pO2 (83-108) mmHg ABG O2 Saturation (94-97) % Sodium 136 L (137-145) mmol/L Chloride 111 H (98-107) mmol/L Carbon Dioxide 20 L (22-30) mmol/L BUN (9-20) mg/dL Creatinine 0.57 L (0.66-1.25) mg/dL Glucose (74-99) mg/dL Calcium 8.1 L (8.4-10.2) mg/dL Magnesium (1.6-2.3) mg/dL Total Bilirubin 1.6 H (0.2-1.3) mg/dL Troponin I 0.086 H* (0.000-0.034) ng/mL Total Protein 5.9 L (6.3-8.2) g/dL Albumin 3.1 L (3.5-5.0) g/dL 05/21/24 Range/Units 05:25 WBC (3.8-10.6) k/uL RBC (4.30-5.90) m/uL Plt Count (150-450) k/uL Neutrophils # (1.3-7.7) k/uL Lymphocytes # (1.0-4.8) k/uL APTT (22.0-30.0) sec ABG pO2 120 H (83-108) mmHg ABG O2 Saturation 99.1 H (94-97) % Sodium (137-145) mmol/L Chloride (98-107) mmol/L Carbon Dioxide (22-30) mmol/L BUN (9-20) mg/dL Creatinine (0.66-1.25) mg/dL Glucose (74-99) mg/dL Calcium (8.4-10.2) mg/dL Magnesium (1.6-2.3) mg/dL Total Bilirubin (0.2-1.3) mg/dL Troponin I (0.000-0.034) ng/mL Total Protein (6.3-8.2) g/dL Albumin (3.5-5.0) g/dL
--- NOTE | 2024-05-22 14:48 | P.PN ---
Subjective Progress Note Date: 05/22/24 HISTORY OF PRESENT ILLNESS: 64-year-old one of my office patient for many years with active medical history of CAD post PCI and stent placement of the RCA back in October 2022, history of chronic clinical hepatitis with early cirrhosis, history of chronic lower back pain with spinal stenosis, hypertension, hyperlipidemia, hyperglycemia, chronic lower back pain, recurrent pancreatitis, chronic history of neuropathy of the lower extremity, chronic kidney disease stage III, with history of BPH mild anxiety and edema who brought to the emergency department by EMS that patient apparently through the day developed to have severe nausea vomiting with recurrent abdominal pain according family heard stump with falling found him shaking and having seizure-like activity on the floor EMS were called to the scene when arrived found to have confused and combative they gave him 10 mg of Versed which made him very calm had no further seizure activity at the time. At the time of his arrival to the emergency department patient was very confused combative hypoxic and having worsening symptoms and that being in intubated and kept on mechanical ventilation and on sedation. At that point in the ER ended up doing CT of the brain and C-spine did not show any acute intracranial hemorr brando or abnormality and no midline shift, C-spine failed to show any fracture or subluxation. CT of the abdomen and pelvis did not show any obvious saddle pulmonary embolism no acute intracranial abdominal process was seen slight some abdominal wall thickening in the sigmoid colon most likely from chronic diverticulitis and incidental 10 mm of nonobstructive calculus within the mid dilated right renal pelvis. Patient was sedated on mechanical ventilation In the emergency department was giving cefepime UA was positive at the time drug screen was positive for opiates benzodiazepine and marijuana which patient taking medication and admitted taking marijuana every so often. [facility] and given duration patient be admitted to the ICU. 02/19/2024: Patient still intubated on mechanical ventilation in the ICU he is extremely agitated when trying to back off sedation, still with all the collected information from family seems like he had seizure EEG did not show any seizure activity at this point. With his low-grade temperature and not finding any source of infection or reason for his symptoms neurology is leaning toward having to do lumbar puncture for collection of spinal fluid for further analysis problem the patient had last dose of antiplatelet agent within the last 4 days which will be a close this time to be able to do LP will be around Friday next week. Meanwhile further recommendation by infectious disease for other infection specially infectious process like Lyme or other pathogen might be the source stomach not been found out. Echocardiogram was performed showed good ejection fraction with no valvular heart disease. Antibiotic was changed by infectious disease to Zosyn from cefepime. Laboratory value with white blood cell is down to 8000 no anemia urine test still showing some RBC more than WBC with large amount of blood and trace bacteria. Chest x-ray shows no acute cardiopulmonary process. 02/20/2024: Patient remain on mechanical ventilation, herpes antibody type I positive patient was started on acyclovir, antibiotic was switched to Zosyn as well. Repeat chest x-ray today still negative with no sign of aspiration or infection. Data been collected on Lyme and West Nile. Neurology still believe having to do LP will be valuable data is not marciano be done till Friday based on the last day he had antiplatelet agent which will make it safer by Friday only. Further management and finding including no fever at this point blood pressure and vitals are stable the patient is still not weanable of mechanical ventilation he is agitated when back off on sedation. REVIEW OF SYSTEMS: CONSTITUTIONAL: Sedated on mechanical ventilation. EYES: No icterus sclerae, no conjunctivitis. EARS, NOSE, MOUTH, THROAT, and FACE: No sore throat, lymphadenopathy, carotid bruits or deformity. ET tube. RESPIRATORY: No SOB cough or wheezes. CARDIOVASCULAR: Intubated. No obvious complaint of chest pain or angina at times despite elevated troponin. GASTROINTESTINAL: Soft positive bowel sounds slight discomfort in the left lower quadrant area and right upper quadrant area as well no rebound or rigidity. GENITOURINARY: Negative for Hematuria or UTI, no kidney stones. INTEGUMENT/BREAST: Negative for any muscular injury with mild osteoarthritis.. HEMATOLOGIC/LYMPHATIC: Negative for bleed or purpura. MUSCULOSKELTAL: Negative for Myalgia or arthralgia. NEURLOGICAL: Sedated anything in ventilation. BEHAVIORAL/PSYCH: Negative. ENDOCRINE: Negative. PHYSICAL EXAMINATION: General Appearance: Sedated on mechanical ventilation with a ET tube in place. Neck HEENT: Supple, no lymphadenopathy, no thyroid enlargement, no carotid bruits. Lungs: Decreased breath sound bilaterally fine rhonchi mild expiratory wheezes. Chest Wall: Decreased expansion with deep inspiration no tenderness and no deformity was found on exam, no costochondral pain or discomfort. Heart: Regular rate and rhythm, S1, S2 normal, no murmur, rub or gallop. Back: Symmetric, no curvature, ROM normal, no CVA tenderness. Abdomen: Soft with slight distention and slight left lower quadrant and mid abdominal region discomfort with no rebound or rigidity. Extremities: Extremities normal, atraumatic, no cyanosis or edema. Pulses: 2+ and symmetric. Skin: Skin color, texture, tugor normal, no rashes or lesions. Neurologic: Sedated on mechanical ventilation. ASSESSMENT AND PLAN: _Altered mental status: Most likely secondary to seizure, could be encephalopathy mostly metabolic will try to correct underlying disease also patient might be having manage STEMI might be a cause of the problem. Still no major finding at this point. _Seizure like activity: Witnessed per family with the way how described patient is sedated still on Keppra and he is EEG was negative. _Respiratory failure: Remain on mechanical ventilation with assisted control and FiO2 of 35% _Non-STEMI: Most likely type II NH no real myocardial infarction or blockage still seen cardiology and echocardiogram was done. _Fever chills and infection not clear etiology yet, remain on antibiotic was switched to Zosyn from cefepime and seem like might be started on acyclovir as well. _Thrombocytopenia possibly due to sepsis rule out HIT. _History of atherosclerotic heart disease: Post angioplasty and stent placement. _Severe GERD: Remain on proton pump inhibitor. 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 _Chronic lower back pain post surgical intervention: Remain on pain meds and muscle relaxer at this point. _Gastroparesis: Has been on Protonix and Reglan in the past with good follow-up. _Hypertension: Remain on metoprolol titrate 25 mg twice a day his blood pressure still high will add smaller dose of ARB. _Hyperlipidemia: Remain on Lipitor 40 mg a day. _Chronic depression anxiety attacks has been on escitalopram 20 and alprazolam 0.5 mg twice a day. Discussion: Still waiting for further culture another result no new finding at this point we will continue current management still taking patient aggressive enough not able to wean him off the vent at this point. Objective - Vital Signs Vital signs: Vital Signs Temp 98.1 F 05/22/24 04:00 Pulse 77 05/22/24 07:00 Resp 18 05/22/24 07:00 BP 107/73 05/21/24 19:00 Pulse Ox 100 05/22/24 07:00 FiO2 35 05/22/24 07:54 Intake & Output 05/21/24 05/22/24 05/22/24 18:59 06:59 18:59 Intake Total 9997.317 0510.555 221.819 Output Total 1255 570 45 Balance 62.123 1272.555 176.819 Weight 84.2 kg 86.6 kg Intake: IV 918 936 78 Sodium Chloride 0.9% 1, 900 900 75 000 ml @ 75 mls/hr IV . [id number] [facility] Rx#:[id number] pressure bag 18 36 3 Intake, IV Titration 309.123 346.555 93.819 Amount Midazolam HCl 200 mg In 16.25 53.85 19.434 Sodium Chloride 0.9% 60 ml @ 1 MG/HR 0.5 mls/hr IV .Q24H [facility] Rx#: [id number] propofoL 1,000 mg In 292.873 292.705 74.385 Empty Bag 1 bag @ 15 MCG/ KG/MIN 7.83 mls/hr IV . [id number] [facility] Rx#:[id number] Tube Feeding 60 230 20 Other 30 330 30 Output: Gastric Drainage 670 Urine 585 570 45 Other: Voiding Method Indwelling Catheter Indwelling Catheter ABP, PAP, CO, CI - Last Documented Arterial Blood Pressure 117/62 - Labs CBC & Chem 7: 05/23/24 04:00 05/23/24 04:00 Labs: Abnormal Lab Results - Last 24 Hours (Table) 05/21/24 05/21/24 05/21/24 Range/Units 07:38 07:38 11:55 RBC (4.30-5.90) m/uL Hgb (13.0-17.5) gm/dL Hct (39.0-53.0) % Plt Count (150-450) k/uL Lymphocytes # (1.0-4.8) k/uL ABG pH (7.35-7.45) ABG pCO2 (35-45) mmHg ABG Total CO2 (19-24) mmol/L ABG O2 Saturation (94-97) % Hemoglobin (13.0-17.5) gm/dL Sodium (137-145) mmol/L Chloride (98-107) mmol/L Creatinine (0.66-1.25) mg/dL Glucose (74-99) mg/dL Calcium (8.4-10.2) mg/dL Total Bilirubin (0.2-1.3) mg/dL Total Protein (6.3-8.2) g/dL Albumin (3.5-5.0) g/dL Vitamin B12 175.0 L (200.0-944.0) pg/mL Folate 3.50 L (4.40-31.00) ng/mL Urine Protein Trace H (Negative) Urine Ketones 2+ H (Negative) Urine Blood Large H (Negative) Ur Leukocyte Esterase Trace H (Negative) Urine RBC 127 H (0-5) /hpf Urine WBC 6 H (0-5) /hpf Urine Bacteria Rare H (None) /hpf Urine Mucus Occasional H (None) /hpf 05/22/24 05/22/24 05/22/24 Range/Units 04:15 04:15 04:52 RBC 3.74 L (4.30-5.90) m/uL Hgb 12.1 L (13.0-17.5) gm/dL Hct 36.4 L (39.0-53.0) % Plt Count 37 L (150-450) k/uL Lymphocytes # 0.7 L (1.0-4.8) k/uL ABG pH 7.46 H (7.35-7.45) ABG pCO2 34 L (35-45) mmHg ABG Total CO2 25 H (19-24) mmol/L ABG O2 Saturation 98.7 H (94-97) % Hemoglobin 12.3 L (13.0-17.5) gm/dL Sodium 135 L (137-145) mmol/L Chloride 108 H (98-107) mmol/L Creatinine 0.60 L (0.66-1.25) mg/dL Glucose 104 H (74-99) mg/dL Calcium 8.0 L (8.4-10.2) mg/dL Total Bilirubin 1.9 H (0.2-1.3) mg/dL Total Protein 5.5 L (6.3-8.2) g/dL Albumin 2.7 L (3.5-5.0) g/dL Vitamin B12 (200.0-944.0) pg/mL Folate (4.40-31.00) ng/mL Urine Protein (Negative) Urine Ketones (Negative) Urine Blood (Negative) Ur Leukocyte Esterase (Negative) Urine RBC (0-5) /hpf Urine WBC (0-5) /hpf Urine Bacteria (None) /hpf Urine Mucus (None) /hpf Microbiology - Last 24 Hours (Table) 05/20/24 02:28 Blood Culture - Preliminary Blood
[2024-05-22 18:02] LABS: Glucose,Whole Blood 118 mg/dL (70-110)
[2024-05-22 23:55] LABS: Glucose,Whole Blood 104 mg/dL (70-110)
[2024-05-23 05:11] LABS: ALT 31 U/L (4-49); AST 36 U/L (17-59); African American GFR (CKD) >90 (>60 ml/min/1.73 sqM); Albumin 2.6 g/dL (3.5-5.0); Alkaline Phosphatase 131 U/L (38-126); Anion Gap 6 mmol/L; Blood Urea Nitrogen 15 mg/dL (9-20); Calcium 7.9 mg/dL (8.4-10.2); Carbon Dioxide 24 mmol/L (22-30); Chloride 105 mmol/L (98-107); Glucose 123 mg/dL (74-99); Non-African American GFR(CKD) >90 (>60 ml/min/1.73 sqM); Potassium 3.9 mmol/L (3.5-5.1); Sodium 135 mmol/L (137-145); Total Protein 5.4 g/dL (6.3-8.2)
[2024-05-23 05:14] LABS: ABG Base Excess 0.9 mmol/L; ABG HCO3 25 mmol/L (21-25); ABG PCO2 38 mmHg (35-45); ABG PH 7.43 (7.35-7.45); ABG PO2 95 mmHg (83-108); ABG TCO2 26 mmol/L (19-24)
[2024-05-23 05:20] LABS: Basophils % (A) 0 %; Eosinophils % (A) 1 %; HGB 12.1 gm/dL (13.0-17.5); Lymphocytes # (A) 0.6 k/uL (1.0-4.8); Lymphocytes % (A) 9 %; MCH 33.5 pg (25.0-35.0); MCHC 34.6 g/dL (31.0-37.0); MCV 96.8 fL (80.0-100.0); Mean Platelet Volume 9.9; Monocytes # (A) 0.3 k/uL (0-1.0); Monocytes % (A) 5 %; Neutrophils # (A) 5.5 k/uL (1.3-7.7); Neutrophils % (A) 85 %; RBC 3.62 m/uL (4.30-5.90); RDW 13.8 % (11.5-15.5); WBC 6.4 k/uL (3.8-10.6)
[2024-05-23 05:26] LABS: Platelet Count 45 k/uL (150-450)
[2024-05-23] MEDS: POTASSIUM BICARBONATE/CIT AC 20 MEQ TABLET.EFF NG-TUBE SCH (05:37)
--- NOTE | 2024-05-23 07:50 | P.PN ---
Subjective Progress Note Date: 05/22/24 Patient was seen for follow-up. Patient continues to be on mechanical ventilation, sedated with propofol 60 mcg/kg/min. As per nursing report, when the sedation was turned off, patient was not following commands, not opening eyes, was just diaphoretic, tachypneic. Patient is off Versed. 05/21/2024: I spoke to patient's and patient's daughter Daisy, who mentions that for last couple of months, patient has had personality change. He becomes easily agitated. He is quick to react to any negative situation. He would yell, stamp and then becomes quiet 5 minutes later as if nothing happened. He used to be very calm, would not react like he does, out of situation, and becomes unreasonably upset. He would walk away fine a minute later. Family also mentions that patient lives near [place] and there are a lot of bugs. Concerned about West Nile. Patient is currently on Plavix prior to arrival to the hospital. The last dose he received for sure was Friday. On Friday he also received a dose, but he has been throwing up all day, therefore family is not sure if patient was able to keep up with the Plavix or threw up. He was having fever not feeling well for a day before arrival. Objective - Vital Signs Vital signs: Vital Signs Temp 99.5 F 05/22/24 16:00 Pulse 97 05/22/24 20:00 Resp 17 05/22/24 20:00 BP 107/73 05/21/24 19:00 Pulse Ox 94 L 05/22/24 20:00 FiO2 35 05/22/24 19:58 Intake & Output 05/22/24 05/22/24 05/23/24 06:59 18:59 06:59 Intake Total 5524.688 0214.819 118 Output Total 570 1540 125 Balance 1272.555 497.819 -7 Weight 86.6 kg Intake: IV 936 1014 78 Sodium Chloride 0.9% 1, 900 975 75 000 ml @ 75 mls/hr IV . [id number] [facility] Rx#:[id number] pressure bag 36 39 3 Intake, IV Titration 346.555 643.819 Amount Acyclovir Sodium 850 mg 250 In Sodium Chloride 0.9% 250 ml @ 267 mls/hr IVPB Q8HR [facility] Rx#:[id number] Midazolam HCl 200 mg In 53.85 19.434 Sodium Chloride 0.9% 60 ml @ 1 MG/HR 0.5 mls/hr IV .Q24H [facility] Rx#: [id number] Piperacillin-Tazobactam 3 100 .375 gm In Sodium Chloride 0.9% 100 ml @ 25 mls/hr IVPB Q8HR [facility] Rx# :[id number] propofoL 1,000 mg In 292.705 274.385 Empty Bag 1 bag @ 15 MCG/ KG/MIN 7.83 mls/hr IV . [id number] [facility] Rx#:[id number] Tube Feeding 230 320 40 Other 330 60 Output: Urine 570 1540 125 Other: Voiding Method Indwelling Catheter Indwelling Catheter Indwelling Catheter ABP, PAP, CO, CI - Last Documented Arterial Blood Pressure 128/58 - Exam Patient at present is sedated with propofol 60 mcg/kg/min. Patient is off Versed no obvious seizure-like activity. Patient's pupils are equal, round and reacting. Oculocephalics are absent. Corneals are present. Patient is breathing over the ventilator. Patient does slightly grimace on nailbed pressure. - Labs CBC & Chem 7: 05/23/24 04:00 05/23/24 04:00 Labs: Abnormal Lab Results - Last 24 Hours (Table) 05/22/24 05/22/24 05/22/24 Range/Units 04:15 04:15 04:52 RBC 3.74 L (4.30-5.90) m/uL Hgb 12.1 L (13.0-17.5) gm/dL Hct 36.4 L (39.0-53.0) % Plt Count 37 L (150-450) k/uL Lymphocytes # 0.7 L (1.0-4.8) k/uL ABG pH 7.46 H (7.35-7.45) ABG pCO2 34 L (35-45) mmHg ABG Total CO2 25 H (19-24) mmol/L ABG O2 Saturation 98.7 H (94-97) % Hemoglobin 12.3 L (13.0-17.5) gm/dL Sodium 135 L (137-145) mmol/L Chloride 108 H (98-107) mmol/L Creatinine 0.60 L (0.66-1.25) mg/dL Glucose 104 H (74-99) mg/dL POC Glucose (mg/dL) (70-110) mg/dL Calcium 8.0 L (8.4-10.2) mg/dL Total Bilirubin 1.9 H (0.2-1.3) mg/dL Total Protein 5.5 L (6.3-8.2) g/dL Albumin 2.7 L (3.5-5.0) g/dL 05/22/24 Range/Units 18:01 RBC (4.30-5.90) m/uL Hgb (13.0-17.5) gm/dL Hct (39.0-53.0) % Plt Count (150-450) k/uL Lymphocytes # (1.0-4.8) k/uL ABG pH (7.35-7.45) ABG pCO2 (35-45) mmHg ABG Total CO2 (19-24) mmol/L ABG O2 Saturation (94-97) % Hemoglobin (13.0-17.5) gm/dL Sodium (137-145) mmol/L Chloride (98-107) mmol/L Creatinine (0.66-1.25) mg/dL Glucose (74-99) mg/dL POC Glucose (mg/dL) 118 H (70-110) mg/dL Calcium (8.4-10.2) mg/dL Total Bilirubin (0.2-1.3) mg/dL Total Protein (6.3-8.2) g/dL Albumin (3.5-5.0) g/dL Microbiology - Last 24 Hours (Table) 05/21/24 12:55 Gram Stain - Preliminary Sputum Sputum Culture - Preliminary 05/20/24 02:28 Blood Culture - Preliminary Blood Assessment and Plan Assessment: * Altered mental status, unclear cause. Rule out postictal state. Rule out other toxic metabolic causes, rule out encephalitis. * New onset seizure versus convulsive syncope. Unclear cause. * Respiratory failure, on mechanical ventilation * Lactic acidosis * Non-STEMI * CAD * History of liver disease * Chronic low back pain * Hypertension * Hyperlipidemia * Depression Plan: * Repeat EEG performed 05/21/2024 was again abnormal due to generalized slowing of moderate to severe degree. No changes compared to the EEG from yesterday. * Initial EEG on 05/20/2024 was abnormal due to background slowing of moderate to severe degree. This suggestive of generalized cerebral dysfunction, as can be seen with toxic metabolic encephalopathy related to diffuse structural brain abnormality. Clinical correlation is recommended. No epileptiform activity was seen. * Empirically continue Keppra 1000 mg IV twice daily. * Ammonia level < 9, B12 175, folate 3.50, blood cultures so far negative. Patient has been started on B12 replacement and folate replacement. * 2D echo revealed normal LV function with EF 60 to 65%. No obvious regional wall motion abnormalities. Normal left atrial size. No valvular abnormalities. * Carotid Doppler revealed less than 50% stenosis of bilateral carotid bifurcations. Antegrade flow in both vertebral arteries. * Initial CT head is normal. May need repeat CT head in 24 to 48 hours. * Cardiology on board for elevated cardiac enzymes. Patient is off Plavix at this time. * Patient had a low-grade temperature. Infectious disease consulted. Patient started on acyclovir and also on Zosyn. Lumbar puncture was considered to rule out encephalitis. However patient used to be on Plavix. He took the last dose on 05/19/2024, but he was throwing up all day, therefore family not sure if was absorbed, or he threw it up. However for sure he received the dose on 05/18/2024. Therefore lumbar puncture cannot be completed until Friday or Friday. * Other medical management as per IM and other specialties on board.
--- NOTE | 2024-05-23 09:16 | XR ---
EXAMINATION TYPE: XR chest 1V portable DATE OF EXAM: 05/23/2024 COMPARISON: 05/22/2024 INDICATION: Intubated difficulty breathing TECHNIQUE: Single frontal view of the chest is obtained. FINDINGS: The heart size is normal. The pulmonary vasculature is normal. Retrocardiac infiltrate and some silhouetting left diaphragm may be present. Correlate for atelectasi s and pleural effusion. Endotracheal tube tip is above darrion. Nasogastric tube transverses the thorax with the tip in the le ft upper quadrant of the abdomen. IMPRESSION: 1. Retrocardiac infiltrate and/or small left pleural effusion. 2. Lines and catheters discussed above. [facility], Workstation: [facility], 05/23/2024 9:14 AM
--- NOTE | 2024-05-23 11:01 | P.PN ---
Subjective Progress Note Date: 05/23/24 HISTORY OF PRESENTING ILLNESS This is a pleasant 64-year-old with past medical history significant for CAD status post PCI of the RCA October 2022, chronic pain, hyperlipidemia, depression, anxiety who presents secondary to epigastric discomfort, nausea, vomiting, diaphoresis. Patient currently intubated and sedated history is supplied by family members. Family states he had been feeling fine and then within a few hours started having nausea, upset stomach and breaking out in a profuse sweat. They were concerned secondary to some of his symptoms of sweating been similar to his prior cardiac arrest and stenting. He had been doing fairly well and has been over 12 months since his stenting however apparently had been placed on Plavix and aspirin discontinued in the past.. He follows in the office with Dr Robles. He was combative in the emergency department and he required Ativan and became lethargic and required intubation. His lactic acid was significantly elevated at 9 and blood pressure borderline in the 80s over 50s additionally had borderline fever with temperature 100.4. Currently he is intubated and sedated on ventilator. Blood work White blood cell count 13.5, creatinine 0.8, lactic acid 9.5 down to 2.4, troponin 0.07, 0.09, 0.08. EKG showed normal sinus rhythm with no significant ST or T-wave abnormalities. 05/21 Patient seen and examined. Patient remains intubated and sedated. Blood pressures stable off of any vasopressors. Per nursing he has been somewhat restless and was placed Versed. 40% FiO2. Remains on propofol as well. Echo showed preserved EF. EEG was performed with generalized background slowing. 05/22 Patient seen and examined. Patient remains intubated and on mechanical ventilation. Plavix may be discontinued as his last stent was in 2022. He is tentatively scheduled for LP on Friday. Blood pressure 117/62, heart rate 77, pulse ox 100%. Repeat blood work reveals platelet count of 37, hemoglobin 12.1. Creatinine 0.6. 05/23 Patient seen and examined in the intensive care unit. Patient remains intubated on mechanical ventilation. Patient had a sedation holiday yesterday that failed. He has had good urine output. Plan is to do LP early this week as patient has been off Plavix for longer than was originally known. Blood pres sure 124/56, heart rate in the 80s and 90s, pulse ox 97%. Repeat blood work reveals hemoglobin 12.1 and platelet count 45. Sodium 135, potassium 3.9, creatinine 0.58. Alkaline phosphatase 131. Total bilirubin 2. Repeat chest x- ray reveals retrocardiac infiltrate and/or small left pleural effusion. PHYSICAL EXAMINATION Vital signs reviewed. CONSTITUTIONAL: No apparent distress, intubated and sedated HEENT: Head is normocephalic. Pupils are equal, round. Sclerae anicteric. Mucous membranes of the mouth are moist. No JVD. No carotid bruit. CHEST EXAMINATION: Lungs are clear to auscultation. No chest wall tenderness is noted on palpation or with deep breathing. HEART EXAMINATION: Regular rate and rhythm. S1, S2 heard. No murmurs, gallops or rub. ABDOMEN: Soft, nontender. Positive bowel sounds. EXTREMITIES: 2+ peripheral pulses, no lower extremity edema and no calf tenderness. NEUROLOGIC EXAMINATION: Patient is intubated and sedated ASSESSMENT Non-STEMI, likely type II mechanism related to septic shock Sepsis with fever, tachycardia, white blood cell count and nausea and vomiting Septic shock Lactic acidosis Thrombocytopenia possibly due to sepsis rule out HIT CAD status post RCA stenting in 2022 Hypertension Hyperlipidemia PLAN Patient with main presentation of nausea, vomiting, fevers and diaphoresis. Echo shows preserved EF and mildly elevated troponins appear type II mechanism Presentation mainly appears related to sepsis with significant lactic acidosis. Continue with current supportive care. Discontinue Plavix permanently. Plan to start patient on aspirin following LP which is to be done early this week Obtain HIT panel-in progress Nurse practitioner note has been reviewed, I agree with documented findings and plan of care. Patient was seen and examined. Objective - Vital Signs Vital signs: Vital Signs Temp 98.1 F 05/23/24 04:00 Pulse 87 05/23/24 07:00 Resp 20 05/23/24 07:00 BP 107/73 05/21/24 19:00 Pulse Ox 100 05/23/24 07:00 FiO2 35 05/23/24 07:45 Intake & Output 05/22/24 05/23/24 05/23/24 18:59 06:59 18:59 Intake Total 2037.819 1886.892 121 Output Total 1540 1465 45 Balance 497.819 421.892 76 Weight 86 kg Intake: IV 1014 858 78 Sodium Chloride 0.9% 1, 975 825 75 000 ml @ 75 mls/hr IV . [id number] [facility] Rx#:[id number] pressure bag 39 33 3 Intake, IV Titration 643.819 318.892 Amount Acyclovir Sodium 850 mg 250 In Sodium Chloride 0.9% 250 ml @ 267 mls/hr IVPB Q8HR [facility] Rx#:[id number] Midazolam HCl 200 mg In 19.434 Sodium Chloride 0.9% 60 ml @ 1 MG/HR 0.5 mls/hr IV .Q24H [facility] Rx#: [id number] Piperacillin-Tazobactam 3 100 .375 gm In Sodium Chloride 0.9% 100 ml @ 25 mls/hr IVPB Q8HR [facility] Rx# :[id number] propofoL 1,000 mg In 274.385 318.892 Empty Bag 1 bag @ 15 MCG/ KG/MIN 7.83 mls/hr IV . [id number] [facility] Rx#:[id number] Tube Feeding 320 470 43 Other 60 240 Output: Urine 1540 1465 45 Other: Voiding Method Indwelling Catheter Indwelling Catheter ABP, PAP, CO, CI - Last Documented Arterial Blood Pressure 157/76 - Labs CBC & Chem 7: 05/23/24 04:00 05/23/24 04:00 Labs: Abnormal Lab Results - Last 24 Hours (Table) 05/22/24 05/23/24 05/23/24 Range/Units 18:01 00:49 04:00 RBC 3.62 L (4.30-5.90) m/uL Hgb 12.1 L (13.0-17.5) gm/dL Hct 35.0 L (39.0-53.0) % Plt Count 45 L (150-450) k/uL Lymphocytes # 0.6 L (1.0-4.8) k/uL ABG Total CO2 26 H (19-24) mmol/L ABG O2 Saturation 98.0 H (94-97) % Hemoglobin 12.0 L (13.0-17.5) gm/dL Sodium (137-145) mmol/L Creatinine (0.66-1.25) mg/dL Glucose (74-99) mg/dL POC Glucose (mg/dL) 118 H (70-110) mg/dL Calcium (8.4-10.2) mg/dL Total Bilirubin (0.2-1.3) mg/dL Alkaline Phosphatase (38-126) U/L Total Protein (6.3-8.2) g/dL Albumin (3.5-5.0) g/dL 05/23/24 Range/Units 04:00 RBC (4.30-5.90) m/uL Hgb (13.0-17.5) gm/dL Hct (39.0-53.0) % Plt Count (150-450) k/uL Lymphocytes # (1.0-4.8) k/uL ABG Total CO2 (19-24) mmol/L ABG O2 Saturation (94-97) % Hemoglobin (13.0-17.5) gm/dL Sodium 135 L (137-145) mmol/L Creatinine 0.58 L (0.66-1.25) mg/dL Glucose 123 H (74-99) mg/dL POC Glucose (mg/dL) (70-110) mg/dL Calcium 7.9 L (8.4-10.2) mg/dL Total Bilirubin 2.0 H (0.2-1.3) mg/dL Alkaline Phosphatase 131 H (38-126) U/L Total Protein 5.4 L (6.3-8.2) g/dL Albumin 2.6 L (3.5-5.0) g/dL Microbiology - Last 24 Hours (Table) 05/21/24 12:55 Gram Stain - Preliminary Sputum Sputum Culture - Preliminary 05/20/24 02:28 Blood Culture - Preliminary Blood
--- NOTE | 2024-05-23 11:33 | P.PN ---
Subjective Progress Note Date: 05/23/24 HISTORY OF PRESENT ILLNESS: 64-year-old one of my office patient for many years with active medical history of CAD post PCI and stent placement of the RCA back in October 2022, history of chronic clinical hepatitis with early cirrhosis, history of chronic lower back pain with spinal stenosis, hypertension, hyperlipidemia, hyperglycemia, chronic lower back pain, recurrent pancreatitis, chronic history of neuropathy of the lower extremity, chronic kidney disease stage III, with history of BPH mild anxiety and edema who brought to the emergency department by EMS that patient apparently through the day developed to have severe nausea vomiting with recurrent abdominal pain according family heard stump with falling found him shaking and having seizure-like activity on the floor EMS were called to the scene when arrived found to have confused and combative they gave him 10 mg of Versed which made him very calm had no further seizure activity at the time. At the time of his arrival to the emergency department patient was very confused combative hypoxic and having worsening symptoms and that being in intubated and kept on mechanical ventilation and on sedation. At that point in the ER ended up doing CT of the brain and C-spine did not show any acute intracranial hemorr brando or abnormality and no midline shift, C-spine failed to show any fracture or subluxation. CT of the abdomen and pelvis did not show any obvious saddle pulmonary embolism no acute intracranial abdominal process was seen slight some abdominal wall thickening in the sigmoid colon most likely from chronic diverticulitis and incidental 10 mm of nonobstructive calculus within the mid dilated right renal pelvis. Patient was sedated on mechanical ventilation In the emergency department was giving cefepime UA was positive at the time drug screen was positive for opiates benzodiazepine and marijuana which patient taking medication and admitted taking marijuana every so often. Risk [facility] and given duration patient be admitted to the ICU. 05/21/2024: Patient still intubated on mechanical ventilation in the ICU he is extremely agitated when trying to back off sedation, still with all the collected information from family seems like he had seizure EEG did not show any seizure activity at this point. With his low-grade temperature and not finding any source of infection or reason for his symptoms neurology is leaning toward having to do lumbar puncture for collection of spinal fluid for further analysis problem the patient had last dose of antiplatelet agent within the last 4 days which will be a close this time to be able to do LP will be around Friday next week. Meanwhile further recommendation by infectious disease for other infection specially infectious process like Lyme or other pathogen might be the source stomach not been found out. Echocardiogram was performed showed good ejection fraction with no valvular heart disease. Antibiotic was changed by infectious disease to Zosyn from cefepime. Laboratory value with white blood cell is down to 8000 no anemia urine test still showing some RBC more than WBC with large amount of blood and trace bacteria. Chest x-ray shows no acute cardiopulmonary process. 05/22/2024: Patient remain on mechanical ventilation, herpes antibody type I positive patient was started on acyclovir, antibiotic was switched to Zosyn as well. Repeat chest x-ray today still negative with no sign of aspiration or infection. Data been collected on Lyme and West Nile. Neurology still believe having to do LP will be valuable data is not marciano be done till Friday based on the last day he had antiplatelet agent which will make it safer by Friday only. Further management and finding including no fever at this point blood pressure and vitals are stable the patient is still not weanable of mechanical ventilation he is agitated when back off on sedation. 05/23/2024: Still sedated on mechanical ventilation, labs from this morning with white blood cell 6.4 normal kidney function, blood sugar running in the low 100s. Chest x-ray has been showing slight haziness in the right lower lobe. Apparently reviewed from infectious disease believe this is still can be an infectious process combination of either diverticulitis or aspiration pneumonia or a combination of both also the necessity to do lumbar puncture in last day of Plavix was 05/20/2024 waiting at least till 05/25/2024 which will be on Friday. 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 Still planning to do LP but not till Friday. Patient backing off on sedation he become quite agitated and not comfortable start thrashing everything around him making it not easy so far he still on mechanical ventilation. REVIEW OF SYSTEMS: CONSTITUTIONAL: Sedated on mechanical ventilation. EYES: No icterus sclerae, no conjunctivitis. EARS, NOSE, MOUTH, THROAT, and FACE: No sore throat, lymphadenopathy, carotid bruits or deformity. ET tube. RESPIRATORY: No SOB cough or wheezes. CARDIOVASCULAR: Intubated. No obvious complaint of chest pain or angina at times despite elevated troponin. GASTROINTESTINAL: Soft positive bowel sounds slight discomfort in the left lower quadrant area and right upper quadrant area as well no rebound or rigidity. GENITOURINARY: Negative for Hematuria or UTI, no kidney stones. INTEGUMENT/BREAST: Negative for any muscular injury with mild osteoarthritis.. HEMATOLOGIC/LYMPHATIC: Negative for bleed or purpura. MUSCULOSKELTAL: Negative for Myalgia or arthralgia. NEURLOGICAL: Sedated anything in ventilation. BEHAVIORAL/PSYCH: Negative. ENDOCRINE: Negative. PHYSICAL EXAMINATION: General Appearance: Sedated on mechanical ventilation with a ET tube in place. Neck HEENT: Supple, no lymphadenopathy, no thyroid enlargement, no carotid bruits. Lungs: Decreased breath sound bilaterally fine rhonchi mild expiratory wheezes. Chest Wall: Decreased expansion with deep inspiration no tenderness and no deformity was found on exam, no costochondral pain or discomfort. Heart: Regular rate and rhythm, S1, S2 normal, no murmur, rub or gallop. Back: Symmetric, no curvature, ROM normal, no CVA tenderness. Abdomen: Soft with slight distention and slight left lower quadrant and mid abdominal region discomfort with no rebound or rigidity. Extremities: Extremities normal, atraumatic, no cyanosis or edema. Pulses: 2+ and symmetric. Skin: Skin color, texture, tugor normal, no rashes or lesions. Neurologic: Sedated on mechanical ventilation. ASSESSMENT AND PLAN: _Most likely sepsis: Source is not clear at this point could be diverticulitis, aspiration pneumonia can be hepatic encephalitis patient is currently being covered for it eventually will be able to do lumbar puncture to find out if have any central nervous system with infection. Microbiology currently remain negative for any positive culture. Will continue current coverage with Zosyn and acyclovir. _Altered mental status: Most likely secondary to seizure, could be encephalopathy mostly metabolic will try to correct underlying disease also patient might be having manage STEMI might be a cause of the problem. Still no major finding at this point. _Seizure like activity: Negative EEG still on Keppra. _Respiratory failure: Remain on mechanical ventilation with assisted control and FiO2 of 35%, still on sedation unable to wean him off. _Non-STEMI: Most likely type II [place] no real myocardial infarction or blockage still seen cardiology and echocardiogram was done. _Thrombocytopenia possibly due to sepsis rule out HIT _History of atherosclerotic heart disease: Post angioplasty and stent placement. _Severe GERD: Remain on proton pump inhibitor. 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 _Chronic lower back pain post surgical intervention: Remain on pain meds and muscle relaxer at this point. _Gastroparesis: Has been on Protonix and Reglan in the past with good follow-up. _Hypertension: Remain on metoprolol titrate 25 mg twice a day his blood pressure still high will add smaller dose of ARB. _Hyperlipidemia: Remain on Lipitor 40 mg a day. _Chronic depression anxiety attacks has been on escitalopram 20 and alprazolam 0.5 mg twice a day. Discussion: Still on IV antibiotic being covered for herpes simplex and for gram-positive and gram-negative infection. Objective - Vital Signs Vital signs: Vital Signs Temp 98.1 F 05/23/24 04:00 Pulse 87 05/23/24 07:00 Resp 20 05/23/24 07:00 BP 107/73 05/21/24 19:00 Pulse Ox 100 05/23/24 07:00 FiO2 35 05/23/24 04:42 Intake & Output 05/22/24 05/23/24 05/23/24 18:59 06:59 18:59 Intake Total 2037.819 1886.892 121 Output Total 1540 1465 45 Balance 497.819 421.892 76 Weight 86 kg Intake: IV 1014 858 78 Sodium Chloride 0.9% 1, 975 825 75 000 ml @ 75 mls/hr IV . [id number] [facility] Rx#:[id number] pressure bag 39 33 3 Intake, IV Titration 643.819 318.892 Amount Acyclovir Sodium 850 mg 250 In Sodium Chloride 0.9% 250 ml @ 267 mls/hr IVPB Q8HR [facility] Rx#:[id number] Midazolam HCl 200 mg In 19.434 Sodium Chloride 0.9% 60 ml @ 1 MG/HR 0.5 mls/hr IV .Q24H [facility] Rx#: [id number] Piperacillin-Tazobactam 3 100 .375 gm In Sodium Chloride 0.9% 100 ml @ 25 mls/hr IVPB Q8HR [facility] Rx# :[id number] propofoL 1,000 mg In 274.385 318.892 Empty Bag 1 bag @ 15 MCG/ KG/MIN 7.83 mls/hr IV . [id number] [facility] Rx#:[id number] Tube Feeding 320 470 43 Other 60 240 Output: Urine 1540 1465 45 Other: Voiding Method Indwelling Catheter Indwelling Catheter ABP, PAP, CO, CI - Last Documented Arterial Blood Pressure 157/76 - Labs CBC & Chem 7: 05/23/24 04:00 05/23/24 04:00 Labs: Abnormal Lab Results - Last 24 Hours (Table) 05/22/24 05/23/24 05/23/24 Range/Units 18:01 00:49 04:00 RBC 3.62 L (4.30-5.90) m/uL Hgb 12.1 L (13.0-17.5) gm/dL Hct 35.0 L (39.0-53.0) % Plt Count 45 L (150-450) k/uL Lymphocytes # 0.6 L (1.0-4.8) k/uL ABG Total CO2 26 H (19-24) mmol/L ABG O2 Saturation 98.0 H (94-97) % Hemoglobin 12.0 L (13.0-17.5) gm/dL Sodium (137-145) mmol/L Creatinine (0.66-1.25) mg/dL Glucose (74-99) mg/dL POC Glucose (mg/dL) 118 H (70-110) mg/dL Calcium (8.4-10.2) mg/dL Total Bilirubin (0.2-1.3) mg/dL Alkaline Phosphatase (38-126) U/L Total Protein (6.3-8.2) g/dL Albumin (3.5-5.0) g/dL 05/23/24 Range/Units 04:00 RBC (4.30-5.90) m/uL Hgb (13.0-17.5) gm/dL Hct (39.0-53.0) % Plt Count (150-450) k/uL Lymphocytes # (1.0-4.8) k/uL ABG Total CO2 (19-24) mmol/L ABG O2 Saturation (94-97) % Hemoglobin (13.0-17.5) gm/dL Sodium 135 L (137-145) mmol/L Creatinine 0.58 L (0.66-1.25) mg/dL Glucose 123 H (74-99) mg/dL POC Glucose (mg/dL) (70-110) mg/dL Calcium 7.9 L (8.4-10.2) mg/dL Total Bilirubin 2.0 H (0.2-1.3) mg/dL Alkaline Phosphatase 131 H (38-126) U/L Total Protein 5.4 L (6.3-8.2) g/dL Albumin 2.6 L (3.5-5.0) g/dL Microbiology - Last 24 Hours (Table) 05/21/24 12:55 Gram Stain - Preliminary Sputum Sputum Culture - Preliminary 05/20/24 02:28 Blood Culture - Preliminary Blood
[2024-05-23 12:09] LABS: Glucose,Whole Blood 114 mg/dL (70-110)
--- NOTE | 2024-05-23 12:50 | P.PN ---
Subjective Progress Note Date: 05/23/24 Principal diagnosis: Acute respiratory failure and altered mental status Patient is a 64-year-old male with past medical history significant for coronary artery disease with previous PCI/stent, syncope, hypertension, hyperlipidemia, among other things. Patient is currently intubated to the mechanical ventilator, unable to provide any information for HPI. Patient presented e mergency department early this morning. Apparently, family heard the patient fall from a different room. They found him on the floor shaking with reported seizure-like activity. When EMS arrived patient was confused and combative. They did give 10 mg of IM Versed. On arrival to the emergency department, patient was intubated by the ER provider. He is underwent an extensive workup. CT of the brain and C-spine did not show any acute intracranial hemorrhage, no midline shift or mass effect. No C-spine fracture or subluxation. Apparently, the patient was having nausea and vomiting and fever. A CT of the chest abdomen and pelvis did not show obvious saddle PE. No acute intra-abdominal process. There was some abdominal wall thickening of the sigmoid colon, likely from chronic diverticulitis. Incidentally, a 10 mm nonobstructive calculus seen in the mildly dilated right renal pelvis. Patient remains in the emergency department on my evaluation, in trauma bay 2. Remains intubated mechanical ventilator with current ventilator settings including assist-control, respiratory rate 18, tidal volume 450, FiO2 50%, PEEP of 5. Postintubation ABG includes a PaO2 of greater than 420, pCO2 of 40, and pH of 7.3. This was done on a FiO2 of 100%. He is on propofol currently infusing at 25 mcg/kg/min. Synchronous with current ventilator settings. Fentanyl is also infusing at 2 mcg/kg/h. Heparin infusing per protocol. Patient did have some elevated troponins on presentation of the 0.07 and 0.09 respectively. EKG: Sinus tachycardia, rate 101 bpm, no obvious acute ischemic changes. Body temperature now hypothermic, currently 36 C with Porsha hugger on, heart rate 83 bpm, blood p ressure normotensive at 105/71 mmHg, SpO2 98%. CBC: WBC count 13.5, hemoglobin 17, hematocrit 52.7, platelets 123. CMP: Sodium 137, potassium 4.2, chloride 105, serum bicarb 12, BUN 28, creatinine 0.8, glucose 144. Lactic elevated at 9.5. LFTs unremarkable. Patient did have a fever of 100 degrees on arrival to the emergency department. Was given dose of cefepime. UA not very remarkable for infection, rare bacteria. Urine drug screen positive for opiates, benzodiazepines, marijuana. Serum alcohol level less than 10. Patient was loaded with Keppra in the emergency department. No further seizure-like activity noted. Patient was evaluated today on 05/21/2024. Remains in the ICU, intubated and mechanically ventilated, patient remains on antibiotics remains on seizure medications he is on assist-control rate of 18 tidal volume 450 FiO2 40% and PEEP of 5 ABG showed a pO2 of 120 pCO2 36 pH of 7.42 hands his FiO2 was cut down to 35%. Patient became extremely agitated last night and early this morning, and he was not mentally appropriate, hence required more sedation to be able to ventilating properly we had to increase his Versed to 5 mg/h he remains on propofol at 45 mcg/kg/min. Patient also spiked a temp yesterday, and neurology is likely to recommend lumbar puncture on this patient today. His EEG showed mostly slowing activity but no seizures. Patient is maintained on Keppra his carotid studies are negative his echocardiogram showed good LV function with ejection fraction of 60 to 65%, no significant valvular heart disease. I was planning to consider weaning on this patient today, however with his present condition this is placed on hold. On admission patient was placed on Unasyn for possible aspiration pneumonia, chest x-ray today is reassuring. Minimal atel ectasis no clear-cut evidence of pneumonia. However considering his intermittent fevers, will continue on Unasyn for now. And again the patient may require lumbar puncture todayWBC count today is 8 hemoglobin is 13.3 electrolytes are normal potassium is a bit low at 3.5, Today on 05/22/2024, remains in the ICU, intubated and mechanically ventilated. No lumbar puncture was done for some reason, however the patient antibiotics were adjusted seen by infectious disease and now he is covered with acyclovir and Zosyn. He was on Unasyn initially. Patient remains on mechanical ventilation, assist-control rate of 18 tidal volume 450 FiO2 35% and PEEP of 5 ABG showed a pO2 of 102 pCO2 34 pH of 7.46. Remains on Versed at 6 mg/h propofol at 50 mcg/kg/min IV fluid 75 cc/h of 0.9 normal saline. Patient is now off Plavix, apparently the lumbar puncture will not be done until he is off Plavix for 5 days. Chest x-ray showed minimal basilar atelectasis especially of the left base no clear-cut evidence of pneumonia. EEG showed generalized slowing of moderate to severe degree. Suggestive of generalized cerebral dysfunction. No definite seizure focus. CBC is relatively normal basic metabo lic profile is relatively normal renal profile is normal Patient was evaluated today on 05/23/2024, remains in the ICU, intubated and mechanically ventilated. On assist-control rate of 18 tidal volume 450 FiO2 35% and PEEP of 5 ABG showed a pO2 of 95 pCO2 38 pH of 7.43, hence did not recommend any change in ventilator settings. Patient remains encephalopathic, when he went off propofol for a brief period of time today, patient remained unresponsive to any stimuli, gets agitated easily, no purposeful movement, patient has upward gaze deviation of his eyes, remains on propofol at 30 and he is on enteral feeding in the form of vital AF 1.243/43 at 75 cc/h. His procalcitonin level is normal at 0.12 patient was seen by infectious disease and seen by neurology, and the plan is to have lumbar puncture on this patient tomorrow. Chest x-ray showed mostly retrocardiac infiltrate and small left pleural effusion WBC 6.4 hemoglobin 12.1 basic metabolic profile is normal renal profile is normal Objective - Vital Signs Vital signs: Vital Signs Temp 100.0 F H 05/23/24 12:00 Pulse 91 05/23/24 12:00 Resp 24 05/23/24 12:00 BP 107/73 05/21/24 19:00 Pulse Ox 100 05/23/24 12:00 FiO2 35 05/23/24 12:00 Intake & Output 05/22/24 05/23/24 05/23/24 18:59 06:59 18:59 Intake Total 2037.819 1886.892 835.067 Output Total 1540 1465 955 Balance 497.819 421.892 -119.933 Weight 86 kg Intake: IV 1014 858 468 Sodium Chloride 0.9% 1, 975 825 450 000 ml @ 75 mls/hr IV . [id number] [facility] Rx#:[id number] pressure bag 39 33 18 Intake, IV Titration 643.819 318.892 49.067 Amount Acyclovir Sodium 850 mg 250 In Sodium Chloride 0.9% 250 ml @ 267 mls/hr IVPB Q8HR [facility] Rx#:[id number] Midazolam HCl 200 mg In 19.434 Sodium Chloride 0.9% 60 ml @ 1 MG/HR 0.5 mls/hr IV .Q24H [facility] Rx#: [id number] Piperacillin-Tazobactam 3 100 .375 gm In Sodium Chloride 0.9% 100 ml @ 25 mls/hr IVPB Q8HR [facility] Rx# :[id number] propofoL 1,000 mg In 274.385 318.892 49.067 Empty Bag 1 bag @ 15 MCG/ KG/MIN 7.83 mls/hr IV . [id number] [facility] Rx#:[id number] Tube Feeding 320 470 258 Other 60 240 60 Output: Urine 1540 1465 955 Other: Voiding Method Indwelling Catheter Indwelling Catheter Indwelling Catheter ABP, PAP, CO, CI - Last Documented Arterial Blood Pressure 157/64 - Exam GENERAL EXAM: Reveals 64-year-old white male intubated mechanically ventilated sedated on propofol and Versed. HEAD: Normocephalic and atraumatic EYES: Normal reaction of pupils, equal size. No nystagmus. Nonicteric sclera NOSE: Clear with pink turbinates. THROAT: No erythema or exudates. NECK: No masses, no JVD. CHEST: No chest wall deformity. LUNGS: Symmetrical chest expansion, clear breath sound bilaterally no crackles rhonchi or wheezes CVS: S1 and S2 normal with no audible murmur, regular rhythm. No extra heart sounds ABDOMEN: Soft nontender no megaly no rebound no guarding positive bowel sounds SKIN: No rashes CENTRAL NERVOUS SYSTEM: Sedated on propofol, off propofol, the patient was noted to have upward deviation of his eyes, no purposeful movement, encephalopathic, not following any instructions. EXTREMITIES: No clubbing edema or cyanosis, excellent pulses bilaterally. - Labs CBC & Chem 7: 05/23/24 04:00 05/23/24 04:00 Labs: Abnormal Lab Results - Last 24 Hours (Table) 05/22/24 05/23/24 05/23/24 Range/Units 18:01 00:49 04:00 RBC 3.62 L (4.30-5.90) m/uL Hgb 12.1 L (13.0-17.5) gm/dL Hct 35.0 L (39.0-53.0) % Plt Count 45 L (150-450) k/uL Lymphocytes # 0.6 L (1.0-4.8) k/uL ABG Total CO2 26 H (19-24) mmol/L ABG O2 Saturation 98.0 H (94-97) % Hemoglobin 12.0 L (13.0-17.5) gm/dL Sodium (137-145) mmol/L Creatinine (0.66-1.25) mg/dL Glucose (74-99) mg/dL POC Glucose (mg/dL) 118 H (70-110) mg/dL Calcium (8.4-10.2) mg/dL Total Bilirubin (0.2-1.3) mg/dL Alkaline Phosphatase (38-126) U/L Total Protein (6.3-8.2) g/dL Albumin (3.5-5.0) g/dL 05/23/24 05/23/24 Range/Units 04:00 12:06 RBC (4.30-5.90) m/uL Hgb (13.0-17.5) gm/dL Hct (39.0-53.0) % Plt Count (150-450) k/uL Lymphocytes # (1.0-4.8) k/uL ABG Total CO2 (19-24) mmol/L ABG O2 Saturation (94-97) % Hemoglobin (13.0-17.5) gm/dL Sodium 135 L (137-145) mmol/L Creatinine 0.58 L (0.66-1.25) mg/dL Glucose 123 H (74-99) mg/dL POC Glucose (mg/dL) 114 H (70-110) mg/dL Calcium 7.9 L (8.4-10.2) mg/dL Total Bilirubin 2.0 H (0.2-1.3) mg/dL Alkaline Phosphatase 131 H (38-126) U/L Total Protein 5.4 L (6.3-8.2) g/dL Albumin 2.6 L (3.5-5.0) g/dL Microbiology - Last 24 Hours (Table) 05/21/24 12:55 Gram Stain - Final Sputum Sputum Culture - Final 05/20/24 02:28 Blood Culture - Preliminary Blood Assessment and Plan Assessment: Impression: Altered mental status, related to acute syncopal episode versus seizure and possibly postictal phase. Acute metabolic encephalopathy, APERTURE MASK ETCHER infection is not ruled out yet. Acute sepsis primary source is not clear at this point. Concerned about APERTURE MASK ETCHER source of infection seen by infectious disease and neurology, patient is supposed to have lumbar puncture tomorrow in the meantime remains on acyclovir and Zosyn Acute syncopal episode versus seizure Acute respiratory failure requiring intubation mechanical ventilation mostly to protect his airways. Considering his mental status on presentation Elevated troponin History of coronary artery disease with previous PCI/stent/RCA. Dyslipidemia Benign essential hypertension Marijuana smoker Possible aspiration pneumonia considering his initial presentation. And considering his abnormal chest x-ray Recommendation: Continue ventilatory support Continue antibiotics Consider nutritional support/enteral feeding Continue present supportive care measures Continue GI DVT prophylaxis Plavix remains on hold, and lumbar puncture is scheduled to be done tomorrow Continue seizure precautions as advised by neurology Daily interruption of sedation has been done but his mental status is p rohibitive for further weaning or extubation Not ready for any weaning at this point considering his overall mental status Patient is critically ill Critical care time is over 30-minute Time with Patient: Greater than 30
--- NOTE | 2024-05-23 17:36 | CT ---
EXAMINATION TYPE: CT brain wo con CT DLP: 1227.4 mGycm, Automated exposure control for dose reduction was used. DATE OF EXAM: 05/23/2024 5:22 PM COMPARISON: 05/20/2024. CLINICAL INDICATION: Male, 64 years old with history of AMS, unresponsive TECHNIQUE: Brain: Axial CT images of the brain were obtained with coronal and sagittal reformats created and rev iewed. Contrast used: None. Oral contrast used: None. FINDINGS: Brain: Extra-axial spaces: No abnormal extra-axial fluid collections. Ventricular system: Within normal limits Cerebral parenchyma: No acute intraparenchymal hemorrhage or mass effect. The feliz-white junction is well differentiated. Cerebellum: Unremarkable. Mass effect: No evidence of midline shift. Intracranial vasculature: unremarkable Soft tissues: Normal. Calvarium/osseous structures: No depressed skull fracture. Paranasal sinuses and mastoid air cells: Mild scattered paranasal sinus disease. Visualized orbits: Orbital contents are intact. IMPRESSION: No acute intracranial process. [facility], , 05/23/2024 5:33 PM
[2024-05-23 18:13] LABS: Glucose,Whole Blood 107 mg/dL (70-110)
--- NOTE | 2024-05-23 21:35 | P.PN ---
Subjective Progress Note Date: 05/23/24 Principal diagnosis: Reason for follow-up is fever question of encephalitis Patient is a 64-year-old male with a past medical history significant for coronary disease reflux hypertension PR, patient was brought into the hospital with an episode of nausea vomiting agitation and seizure-like activity he did have low-grade fever got elevated to protect his airways. On today's evaluation that is 05/23/2024,the patient remains to be afebrile, patient remains to be intubated on the vent FiO2 is currently stable at 35% no significant purulent secretion through the ET vomiting or diarrhea has been reported patient not requiring any pressor support. Patient white count 6.4, creatinine 0.58 Objective - Vital Signs Vital signs: Vital Signs Temp 98.8 F 05/23/24 16:00 Pulse 82 05/23/24 16:00 Resp 19 05/23/24 16:00 BP 107/73 05/21/24 19:00 Pulse Ox 100 05/23/24 16:00 FiO2 35 05/23/24 16:00 Intake & Output 05/22/24 05/23/24 05/23/24 18:59 06:59 18:59 Intake Total 2037.819 4377.259 0471.103 Output Total 1540 1465 1635 Balance 497.819 421.892 -202.897 Weight 86 kg Intake: IV 1014 858 780 Sodium Chloride 0.9% 1, 975 825 750 000 ml @ 75 mls/hr IV . [id number] [facility] Rx#:[id number] pressure bag 39 33 30 Intake, IV Titration 643.819 318.892 132.103 Amount Acyclovir Sodium 850 mg 250 In Sodium Chloride 0.9% 250 ml @ 267 mls/hr IVPB Q8HR [facility] Rx#:[id number] Midazolam HCl 200 mg In 19.434 Sodium Chloride 0.9% 60 ml @ 1 MG/HR 0.5 mls/hr IV .Q24H [facility] Rx#: [id number] Piperacillin-Tazobactam 3 100 .375 gm In Sodium Chloride 0.9% 100 ml @ 25 mls/hr IVPB Q8HR [facility] Rx# :[id number] propofoL 1,000 mg In 274.385 318.892 132.103 Empty Bag 1 bag @ 15 MCG/ KG/MIN 7.83 mls/hr IV . [id number] [facility] Rx#:[id number] Tube Feeding 320 470 430 Other 60 240 90 Output: Urine 1540 1465 1635 Other: Voiding Method Indwelling Catheter Indwelling Catheter Indwelling Catheter ABP, PAP, CO, CI - Last Documented Arterial Blood Pressure 139/57 - Exam GENERAL DESCRIPTION: An elderly male intubated on the vent RESPIRATORY SYSTEM: Unlabored breathing , decreased breath sounds at bases HEART: S1 S2 regular rate and rhythm , ABDOMEN: Soft , no tenderness EXTREMITIES: No edema feet - Labs CBC & Chem 7: 05/23/24 04:00 05/23/24 04:00 Labs: Abnormal Lab Results - Last 24 Hours (Table) 05/23/24 05/23/24 05/23/24 Range/Units 00:49 04:00 04:00 RBC 3.62 L (4.30-5.90) m/uL Hgb 12.1 L (13.0-17.5) gm/dL Hct 35.0 L (39.0-53.0) % Plt Count 45 L (150-450) k/uL Lymphocytes # 0.6 L (1.0-4.8) k/uL ABG Total CO2 26 H (19-24) mmol/L ABG O2 Saturation 98.0 H (94-97) % Hemoglobin 12.0 L (13.0-17.5) gm/dL Sodium 135 L (137-145) mmol/L Creatinine 0.58 L (0.66-1.25) mg/dL Glucose 123 H (74-99) mg/dL POC Glucose (mg/dL) (70-110) mg/dL Calcium 7.9 L (8.4-10.2) mg/dL Total Bilirubin 2.0 H (0.2-1.3) mg/dL Alkaline Phosphatase 131 H (38-126) U/L Total Protein 5.4 L (6.3-8.2) g/dL Albumin 2.6 L (3.5-5.0) g/dL 05/23/24 Range/Units 12:06 RBC (4.30-5.90) m/uL Hgb (13.0-17.5) gm/dL Hct (39.0-53.0) % Plt Count (150-450) k/uL Lymphocytes # (1.0-4.8) k/uL ABG Total CO2 (19-24) mmol/L ABG O2 Saturation (94-97) % Hemoglobin (13.0-17.5) gm/dL Sodium (137-145) mmol/L Creatinine (0.66-1.25) mg/dL Glucose (74-99) mg/dL POC Glucose (mg/dL) 114 H (70-110) mg/dL Calcium (8.4-10.2) mg/dL Total Bilirubin (0.2-1.3) mg/dL Alkaline Phosphatase (38-126) U/L Total Protein (6.3-8.2) g/dL Albumin (3.5-5.0) g/dL Microbiology - Last 24 Hours (Table) 05/20/24 02:28 Blood Culture - Preliminary Blood 05/21/24 12:55 Gram Stain - Final Sputum Sputum Culture - Final Assessment and Plan (1) Acute encephalopathy Current Visit: Yes Status: Acute Code(s): G93.40 - ENCEPHALOPATHY, UNSPECIFIED SNOMED Code(s): 57657156 (2) Fever Current Visit: Yes Status: Acute Code(s): R50.9 - FEVER, UNSPECIFIED SNOMED Code(s): 043710257 Plan: 1patient presented to hospital with rigors and chills mental status changes and apparently the patient did have significant vomiting the day before presentation to the hospital and did have extensive workup no significant finding except dive rticulitis reported by the radiologist on the CT however keeping in mind significant mental status changes agitation combativeness and fever will point was possible encephalitis with a question of possible herpes versus West Nile in the differential, and will also cover for possible component of aspiration pneumonitis/diverticulitis 2-LP has been discussed with the neurologist however the patient has been on Plavix which was discontinued 05/20/2024 hence we will need to wait for at least 5 days before LP could be completed 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 please excuse any grammatical, word or spelling errors. Time with Patient: Less than 30
[2024-05-24 00:29] LABS: Glucose,Whole Blood 106 mg/dL (70-110)
--- NOTE | 2024-05-24 00:51 | P.PN ---
Subjective Progress Note Date: 05/23/24 05/23/2024: Patient was seen for a follow-up. Patient continues to be on high- dose propofol. Per nursing report, with sedation holiday, patient opened eyes to voice, but did not follow commands. No obvious seizure-like activity noted. Patient does not tolerate sedation holiday. 05/22/2024: Patient was seen for follow-up. Patient continues to be on mechanical ventilation, sedated with propofol 60 mcg/kg/min. As per nursing report, when the sedation was turned off, patient was not following commands, not opening eyes, was just diaphoretic, tachypneic. Patient is off Versed. 05/21/2024: I spoke to patient's and patient's daughter Daisy, who mentions that for last couple of months, patient has had personality change. He becomes easily agitated. He is quick to react to any negative situation. He would yell, stamp and then becomes quiet 5 minutes later as if nothing happened. He used to be very calm, would not react like he does, out of situation, and becomes unreasonably upset. He would walk away fine a minute later. Family also mentions that patient lives near [place] and there are a lot of bugs. Concerned about West Nile. Patient is currently on Plavix prior to arrival to the hospital. The last dose he received for sure was Friday. On Friday he also received a dose, but he has been throwing up all day, therefore family is not sure if patient was able to keep up with the Plavix or threw up. He was having fever not feeling well for a day before arrival. Objective - Vital Signs Vital signs: Vital Signs Temp 100.0 F H 05/23/24 12:00 Pulse 91 05/23/24 12:00 Resp 24 05/23/24 12:00 BP 107/73 05/21/24 19:00 Pulse Ox 100 05/23/24 12:00 FiO2 35 05/23/24 12:00 Intake & Output 05/22/24 05/23/24 05/23/24 18:59 06:59 18:59 Intake Total 2037.819 1886.892 835.067 Output Total 1540 1465 955 Balance 497.819 421.892 -119.933 Weight 86 kg Intake: IV 1014 858 468 Sodium Chloride 0.9% 1, 975 825 450 000 ml @ 75 mls/hr IV . [id number] [facility] Rx#:[id number] pressure bag 39 33 18 Intake, IV Titration 643.819 318.892 49.067 Amount Acyclovir Sodium 850 mg 250 In Sodium Chloride 0.9% 250 ml @ 267 mls/hr IVPB Q8HR [facility] Rx#:[id number] Midazolam HCl 200 mg In 19.434 Sodium Chloride 0.9% 60 ml @ 1 MG/HR 0.5 mls/hr IV .Q24H [facility] Rx#: [id number] Piperacillin-Tazobactam 3 100 .375 gm In Sodium Chloride 0.9% 100 ml @ 25 mls/hr IVPB Q8HR [facility] Rx# :[id number] propofoL 1,000 mg In 274.385 318.892 49.067 Empty Bag 1 bag @ 15 MCG/ KG/MIN 7.83 mls/hr IV . [id number] [facility] Rx#:[id number] Tube Feeding 320 470 258 Other 60 240 60 Output: Urine 1540 1465 955 Other: Voiding Method Indwelling Catheter Indwelling Catheter Indwelling Catheter ABP, PAP, CO, CI - Last Documented Arterial Blood Pressure 157/64 - Exam Patient at present is sedated with propofol 60 mcg/kg/min. No obvious seizure- like activity. Patient's pupils are equal, round and reacting. Oculocephalics are absent. Corneals are present. Patient is breathing over the ventilator. Patient does slightly grimace on nailbed pressure. - Labs CBC & Chem 7: 05/23/24 04:00 05/23/24 04:00 Labs: Abnormal Lab Results - Last 24 Hours (Table) 05/22/24 05/23/24 05/23/24 Range/Units 18:01 00:49 04:00 RBC 3.62 L (4.30-5.90) m/uL Hgb 12.1 L (13.0-17.5) gm/dL Hct 35.0 L (39.0-53.0) % Plt Count 45 L (150-450) k/uL Lymphocytes # 0.6 L (1.0-4.8) k/uL ABG Total CO2 26 H (19-24) mmol/L ABG O2 Saturation 98.0 H (94-97) % Hemoglobin 12.0 L (13.0-17.5) gm/dL Sodium (137-145) mmol/L Creatinine (0.66-1.25) mg/dL Glucose (74-99) mg/dL POC Glucose (mg/dL) 118 H (70-110) mg/dL Calcium (8.4-10.2) mg/dL Total Bilirubin (0.2-1.3) mg/dL Alkaline Phosphatase (38-126) U/L Total Protein (6.3-8.2) g/dL Albumin (3.5-5.0) g/dL 05/23/24 Range/Units 04:00 RBC (4.30-5.90) m/uL Hgb (13.0-17.5) gm/dL Hct (39.0-53.0) % Plt Count (150-450) k/uL Lymphocytes # (1.0-4.8) k/uL ABG Total CO2 (19-24) mmol/L ABG O2 Saturation (94-97) % Hemoglobin (13.0-17.5) gm/dL Sodium 135 L (137-145) mmol/L Creatinine 0.58 L (0.66-1.25) mg/dL Glucose 123 H (74-99) mg/dL POC Glucose (mg/dL) (70-110) mg/dL Calcium 7.9 L (8.4-10.2) mg/dL Total Bilirubin 2.0 H (0.2-1.3) mg/dL Alkaline Phosphatase 131 H (38-126) U/L Total Protein 5.4 L (6.3-8.2) g/dL Albumin 2.6 L (3.5-5.0) g/dL Microbiology - Last 24 Hours (Table) 05/21/24 12:55 Gram Stain - Final Sputum Sputum Culture - Final 05/20/24 02:28 Blood Culture - Preliminary Blood Assessment and Plan Assessment: * Altered mental status, unclear cause. Rule out postictal state. Rule out other toxic metabolic causes, rule out encephalitis. * New onset seizure versus convulsive syncope. Unclear cause. * Respiratory failure, on mechanical ventilation * Lactic acidosis * Non-STEMI * CAD * History of liver disease * Chronic low back pain * Hypertension * Hyperlipidemia * Depression Plan: * Patient continues to be severely encephalopathic. No improvement in clinical condition. * Repeat CT head performed today showed no acute intracranial process. I personally reviewed CT head and agree with the findings. No change as c ompared to CT head from 05/20/2024. * Repeat EEG performed 05/21/2024 was again abnormal due to generalized slowing of moderate to severe degree. No changes compared to the EEG from yesterday. * Initial EEG on 05/20/2024 was abnormal due to background slowing of moderate to severe degree. This suggestive of generalized cerebral dysfunction, as can be seen with toxic metabolic encephalopathy related to diffuse structural brain abnormality. Clinical correlation is recommended. No epileptiform activity was seen. * Empirically continue Keppra 1000 mg IV twice daily. * Ammonia level < 9, B12 175, folate 3.50, blood cultures so far negative. Patient has been started on B12 replacement and folate replacement. * 2D echo revealed normal LV function with EF 60 to 65%. No obvious regional wall motion abnormalities. Normal left atrial size. No valvular abnormalities. * Carotid Doppler revealed less than 50% stenosis of bilateral carotid bifurcations. Antegrade flow in both vertebral arteries. * Initial CT head is normal. May need repeat CT head in 24 to 48 hours. * Cardiology on board for elevated cardiac enzymes. Patient is off Plavix at this time. * Patient had a low-grade temperature. Infectious disease consulted. Patient started on acyclovir and also on Zosyn. Lumbar puncture was considered to rule out encephalitis. However patient used to be on Plavix. He took the last dose on 05/19/2024, but he was throwing up all day, therefore family not sure if was absorbed, or he threw it up. However for sure he received the dose on 05/18/2024. Therefore lumbar puncture cannot be completed until Friday or Friday. * Other medical management as per IM and other specialties on board. * Dr. Da Subramanian to resume neurology service from the morning.
[2024-05-24 04:24] LABS: Basophils % (A) 0 %; Eosinophils # (A) 0.1 k/uL (0-0.7); Eosinophils % (A) 1 %; HCT 36.7 % (39.0-53.0); HGB 11.8 gm/dL (13.0-17.5); Lymphocytes # (A) 0.5 k/uL (1.0-4.8); Lymphocytes % (A) 9 %; MCH 32.3 pg (25.0-35.0); MCHC 32.3 g/dL (31.0-37.0); MCV 100.1 fL (80.0-100.0); Mean Platelet Volume 7.8; Monocytes # (A) 0.4 k/uL (0-1.0); Monocytes % (A) 6 %; Neutrophils # (A) 4.5 k/uL (1.3-7.7); Neutrophils % (A) 82 %; RBC 3.66 m/uL (4.30-5.90); RDW 13.6 % (11.5-15.5); WBC 5.4 k/uL (3.8-10.6)
[2024-05-24 04:35] LABS: African American GFR (CKD) >90 (>60 ml/min/1.73 sqM); Anion Gap 3 mmol/L; Blood Urea Nitrogen 18 mg/dL (9-20); Calcium 8.1 mg/dL (8.4-10.2); Carbon Dioxide 24 mmol/L (22-30); Chloride 109 mmol/L (98-107); Glucose 120 mg/dL (74-99); Non-African American GFR(CKD) >90 (>60 ml/min/1.73 sqM); Potassium 3.9 mmol/L (3.5-5.1); Sodium 136 mmol/L (137-145)
[2024-05-24 04:51] LABS: ABG Base Excess 1.7 mmol/L; ABG HCO3 26 mmol/L (21-25); ABG Oxygen Saturation 99.1 % (94-97); ABG PCO2 40 mmHg (35-45); ABG PH 7.43 (7.35-7.45); ABG PO2 128 mmHg (83-108); ABG TCO2 27 mmol/L (19-24)
[2024-05-24] MEDS: POTASSIUM BICARBONATE/CIT AC 20 MEQ TABLET.EFF NG-TUBE SCH (05:24)
--- NOTE | 2024-05-24 08:34 | XR ---
EXAMINATION TYPE: XR chest 1V portable DATE OF EXAM: 05/24/2024 Comparison: 05/23/2024 Clinical History: 64-year-old male Intubated, ICU follow-up Findings: ET and NG tubes are satisfactory. Heart upper limits of normal in size. Patchy bibasilar opacities re main but are improving from prior exam. No pleural effusion. Impression: Mild patchy bibasilar opacities show partial improvement. [facility], , 05/24/2024 8:32 AM
[2024-05-24 11:19] LABS: Glucose,Whole Blood 101 mg/dL (70-110)
--- NOTE | 2024-05-24 11:39 | P.PN ---
Subjective Progress Note Date: 05/24/24 Principal diagnosis: Respiratory failure. Patient is a 64-year-old male with past medical history significant for coronary artery disease with previous PCI/stent, syncope, hypertension, hyperlipidemia, among other things. Patient is currently intubated to the mechanical ventila [facility], unable to provide any information for HPI. Patient presented emergency department early this morning. Apparently, family heard the patient fall from a different room. They found him on the floor shaking with reported seizure-like activity. When EMS arrived patient was confused and combative. They did give 10 mg of IM Versed. On arrival to the emergency department, patient was intubated by the ER provider. He is underwent an extensive workup. CT of the brain and C-spine did not show any acute intracranial hemorrhage, no midline shift or mass effect. No C-spine fracture or subluxation. Apparently, the patient was having nausea and vomiting and fever. A CT of the chest abdomen and pelvis did not show obvious saddle PE. No acute intra-abdominal process. There was some abdominal wall thickening of the sigmoid colon, likely from chronic diverticulitis. Incidentally, a 10 mm nonobstructive calculus seen in the mildly dilated right renal pelvis. Patient remains in the emergency department on my evaluation, in trauma bay 2. Remains intubated mechanical ventilator with current ventilator settings including assist-control, respiratory rate 18, tidal volume 450, FiO2 50%, PEEP of 5. Postintubation ABG includes a PaO2 of greater than 420, pCO2 of 40, and pH of 7.3. This was done on a FiO2 of 100%. He is on propofol currently infusing at 25 mcg/kg/min. Synchronous with current ventilator settings. Fentanyl is also infusing at 2 mcg/kg/h. Heparin infusing per protocol. Patient did have some elevated troponins on presentation of the 0.07 and 0.09 respectively. EKG: Sinus tachycardia, rate 101 bpm, no obvious acute ischemic changes. Body temperature now hypothermic, currently 36 C with Porsha hugger on, heart rate 83 bpm, blood pressure normotensive at 105/71 mmHg, SpO2 98%. CBC: WBC count 13.5, hemoglobin 17, hematocrit 52.7, platelets 123. CMP: Sodium 137, potassium 4.2, chloride 105, serum bicarb 12, BUN 28, creatinine 0.8, glucose 144. Lactic elevated at 9.5. LFTs unremarkable. Patient did have a fever of 100 degrees on arrival to the emergency department. Was given dose of cefepime. UA not very remarkable for infection, rare bacteria. Urine drug screen positive for opiates, benzodiazepines, marijuana. Serum alcohol level less than 10. Patient was loaded with Keppra in the emergency department. No further seizure-like activity noted. Patient was evaluated today on 05/21/2024. Remains in the ICU, intubated and mechanically ventilated, patient remains on antibiotics remains on seizure medications he is on assist-control rate of 18 tidal volume 450 FiO2 40% and PEEP of 5 ABG showed a pO2 of 120 pCO2 36 pH of 7.42 hands his FiO2 was cut down to 35%. Patient became extremely agitated last night and early this morning, and he was not mentally appropriate, hence required more sedation to be able to ventilating properly we had to increase his Versed to 5 mg/h he remains on propofol at 45 mcg/kg/min. Patient also spiked a temp yesterday, and neurology is likely to recommend lumbar puncture on this patient today. His EEG showed mostly slowing activity but no seizures. Patient is maintained on Keppra his carotid studies are negative his echocardiogram showed good LV function with ejection fraction of 60 to 65%, no significant valvular heart disease. I was planning to consider weaning on this patient today, however with his present condition this is placed on hold. On admission patient was placed on Unasyn for possible aspiration pneumonia, chest x-ray today is reassuring. Minimal atelectasis no clear-cut evidence of pneumonia. However considering his intermittent fevers, will continue on Unasyn for now. And again the patient may require lumbar puncture todayWBC count today is 8 hemoglobin is 13.3 electrolytes are normal potassium is a bit low at 3.5, Today on 05/22/2024, remains in the ICU, intubated and mechanically ventilated. No lumbar puncture was done for some reason, however the patient antibiotics were adjusted seen by infectious disease and now he is covered with acyclovir and Zosyn. He was on Unasyn initially. Patient remains on mechanical ventilation, assist-control rate of 18 tidal volume 450 FiO2 35% and PEEP of 5 ABG showed a pO2 of 102 pCO2 34 pH of 7.46. Remains on Versed at 6 mg/h propofol at 50 mcg/kg/min IV fluid 75 cc/h of 0.9 normal saline. Patient is now off Plavix, apparently the lumbar puncture will not be done until he is off Plavix for 5 days. Chest x-ray showed minimal basilar atelectasis especially of the left base no clear-cut evidence of pneumonia. EEG showed generalized slowing of moderate to severe degree. Suggestive of generalized cerebral dysfunction. No definite seizure focus. CBC is relatively normal basic metabolic profile is relatively normal renal profile is normal Patient was evaluated today on 05/23/2024, remains in the ICU, intubated and mechanically ventilated. On assist-control rate of 18 tidal volume 450 FiO2 35% and PEEP of 5 ABG showed a pO2 of 95 pCO2 38 pH of 7.43, hence did not recommend any change in ventilator settings. Patient remains encephalopathic, when he went off propofol for a brief period of time today, patient remained unresponsive to any stimuli, gets agitated easily, no purposeful movement, patient has upward gaze deviation of his eyes, remains on propofol at 30 and he is on enteral feeding in the form of vital AF 1.243/43 at 75 cc/h. His procalcitonin level is normal at 0.12 patient was seen by infectious disease and seen by neurology, and the plan is to have lumbar puncture on this patient tomorrow. Chest x-ray showed mostly retrocardiac infiltrate and small left pleural effusion WBC 6.4 hemoglobin 12.1 basic metabolic profile is normal renal profile is normal Progress note dated May 24, 2024. 64-year-old male who was admitted back on May 20. He apparently had a fall, had evidence of fever, and elevated troponins. The patient came to the intensive care unit on May 20, and was intubated on May 20. Since that time, he has been evaluated for possible encephalopathy. The lumbar puncture is planned for tomorrow. The patient remains on the mechanical ventilator. He is on volume assist-control, rate 18, tidal volume 450, FiO2 35% to be dropped down to 30%, and PEEP of 5. Blood gases show pO2 of 128, pCO2 40, pH of 7.43. His procalcitonin level was 0.12. Zosyn is discontinued. He continues on propofol at 40 mcg/kg/min, saline at 75 cc an hour, and vital AF at 43 cc an hour, which is goal. In addition to Zosyn, he is on acyclovir. We will attempt a daily interruption of sedation. Current labs include a white count 5.4, hemoglobin 11.8, macro 36.7, and platelet count of 72,000. Sodium 136, potassium 3.9, chlorides 109, CO2 24, BUN 18, creatinine 0.51. Glucose is 120. Calcium is 8.1. Blood and sputum sampling are negative. Chest x-ray shows some improved patchy bibasilar opacities. Objective - Vital Signs Vital signs: Vital Signs Temp 98.2 F 05/24/24 08:00 Pulse 85 05/24/24 11:00 Resp 20 05/24/24 11:00 BP 100/70 05/24/24 09:00 Pulse Ox 94 L 05/24/24 11:00 FiO2 35 05/24/24 11:12 Intake & Output 05/23/24 05/24/24 05/24/24 18:59 06:59 18:59 Intake Total 1015.962 8167.081 894.750 Output Total 2360 1999 830 Balance -564.897 33.081 64.750 Weight 86.2 kg 86.2 kg Intake: IV 1014 858 390 Sodium Chloride 0.9% 1, 975 825 375 000 ml @ 75 mls/hr IV . [id number] [facility] Rx#:[id number] pressure bag 39 33 15 Intake, IV Titration 132.103 612.081 461.750 Amount Acyclovir Sodium 850 mg 250 250 In Sodium Chloride 0.9% 250 ml @ 267 mls/hr IVPB Q8HR [facility] Rx#:[id number] Piperacillin-Tazobactam 3 100 100 .375 gm In Sodium Chloride 0.9% 100 ml @ 25 mls/hr IVPB Q8HR [facility] Rx# :[id number] propofoL 1,000 mg In 132.103 262.081 111.750 Empty Bag 1 bag @ 15 MCG/ KG/MIN 7.83 mls/hr IV . [id number] [facility] Rx#:[id number] Tube Feeding 559 473 43 Other 90 90 Output: Urine 2360 1999 830 Other: Voiding Method Indwelling Catheter Indwelling Catheter Indwelling Catheter ABP, PAP, CO, CI - Last Documented Arterial Blood Pressure 121/55 - Exam No acute distress, sedated, with an orally placed endotracheal tube. HEENT examination is grossly unremarkable. Mucous membranes are moist. No oral lesions. Neck supple. Full range of motion. No adenopathy thyromegaly or neck vein distention. Cardiovascular examination reveals regular rhythm rate. S1-S2 normal. No S3 or S4. No discernible murmur noted. Lungs reveal mild scattered rhonchi. No wheezes. No crackles. Breath sounds equal. Abdomen soft bowel sounds are heard. No masses or tenderness. Extremities are intact. No cyanosis clubbing or edema. Skin is without rash or lesion. Neurologic examination cannot be fully evaluated at this time. - Labs CBC & Chem 7: 05/24/24 04:00 05/24/24 04:00 Labs: Abnormal Lab Results - Last 24 Hours (Table) 05/23/24 05/24/24 05/24/24 Range/Units 12:06 04:00 04:00 RBC 3.66 L (4.30-5.90) m/uL Hgb 11.8 L (13.0-17.5) gm/dL Hct 36.7 L (39.0-53.0) % MCV 100.1 H (80.0-100.0) fL Plt Count 72 L D (150-450) k/uL Lymphocytes # 0.5 L (1.0-4.8) k/uL ABG pO2 (83-108) mmHg ABG HCO3 (21-25) mmol/L ABG Total CO2 (19-24) mmol/L ABG O2 Saturation (94-97) % Hemoglobin (13.0-17.5) gm/dL Sodium 136 L (137-145) mmol/L Chloride 109 H (98-107) mmol/L Creatinine 0.51 L (0.66-1.25) mg/dL Glucose 120 H (74-99) mg/dL POC Glucose (mg/dL) 114 H (70-110) mg/dL Calcium 8.1 L (8.4-10.2) mg/dL 05/24/24 Range/Units 04:49 RBC (4.30-5.90) m/uL Hgb (13.0-17.5) gm/dL Hct (39.0-53.0) % MCV (80.0-100.0) fL Plt Count (150-450) k/uL Lymphocytes # (1.0-4.8) k/uL ABG pO2 128 H (83-108) mmHg ABG HCO3 26 H (21-25) mmol/L ABG Total CO2 27 H (19-24) mmol/L ABG O2 Saturation 99.1 H (94-97) % Hemoglobin 12.3 L (13.0-17.5) gm/dL Sodium (137-145) mmol/L Chloride (98-107) mmol/L Creatinine (0.66-1.25) mg/dL Glucose (74-99) mg/dL POC Glucose (mg/dL) (70-110) mg/dL Calcium (8.4-10.2) mg/dL Microbiology - Last 24 Hours (Table) 05/20/24 02:28 Blood Culture - Preliminary Blood 05/21/24 12:55 Gram Stain - Final Sputum Sputum Culture - Final Assessment and Plan Assessment: Acute mental status changes, of unclear etiology. Metabolic encephalopathy. Rule out [employer]IST infection. Acute sepsis, source not clear. Acute syncopal episode, versus seizure. Respiratory failure requiring intubation and mechanical ventilation, beginning on May 20, 2024. History of CAD with previous PCI/stent. Hyperlipidemia. Benign essential hypertension. History of marijuana use. Plan: Plan dated May 24, 2024. The patient was admitted on 20 May. The patient was intubated on the same day. The patient had acute mental status changes, and is remains on mechanical ventilator. The FiO2 is reduced from 35%, down to 30%. Will discontinue Zosyn as the procalcitonin level is 0.12. The patient should continue on acyclovir. We will wake up the patient, and attempt a spontaneous breathing trial. He may not be ready. Additional recommendations and suggestions are forthcoming. Labs, x-rays, and medications are reviewed. We will continue nutritional support, and GI/DVT prophylaxis. LP is planned for tomorrow. Time with Patient: Greater than 30
[2024-05-24 14:38] LABS: Platelet Count 72 k/uL (150-450)
--- NOTE | 2024-05-24 15:23 | P.PN ---
Subjective Progress Note Date: 05/24/24 HISTORY OF PRESENTING ILLNESS This is a pleasant 64-year-old with past medical history significant for CAD status post PCI of the RCA October 2022, chronic pain, hyperlipidemia, depression, anxiety who presents secondary to epigastric discomfort, nausea, vomiting, diaphoresis. Patient currently intubated and sedated history is supplied by family members. Family states he had been feeling fine and then within a few hours started having nausea, upset stomach and breaking out in a profuse sweat. They were concerned secondary to some of his symptoms of sweating been similar to his prior cardiac arrest and stenting. He had been doing fairly well and has been over 12 months since his stenting however apparently had been placed on Plavix and aspirin discontinued in the past.. He follows in the office with Dr Robles. He was combative in the emergency department and he required Ativan and became lethargic and required intubation. His lactic acid was significantly elevated at 9 and blood pressure borderline in the 80s over 50s additionally had borderline fever with temperature 100.4. Currently he is intubated and sedated on ventilator. Blood work White blood cell count 13.5, creatinine 0.8, lactic acid 9.5 down to 2.4, troponin 0.07, 0.09, 0.08. EKG showed normal sinus rhythm with no significant ST or T-wave abnormalities. 05/21 Patient seen and examined. Patient remains intubated and sedated. Blood pressures stable off of any vasopressors. Per nursing he has been somewhat restless and was placed Versed. 40% FiO2. Remains on propofol as well. Echo showed preserved EF. EEG was performed with generalized background slowing. 05/22 Patient seen and examined. Patient remains intubated and on mechanical ventilation. Plavix may be discontinued as his last stent was in 2022. He is tentatively scheduled for LP on Friday. Blood pressure 117/62, heart rate 77, pulse ox 100%. Repeat blood work reveals platelet count of 37, hemoglobin 12.1. Creatinine 0.6. 05/23 Patient seen and examined in the intensive care unit. Patient remains intubated on mechanical ventilation. Patient had a sedation holiday yesterday that failed. He has had good urine output. Plan is to do LP early this week as patient has been off Plavix for longer than was originally known. Blood pres sure 124/56, heart rate in the 80s and 90s, pulse ox 97%. Repeat blood work reveals hemoglobin 12.1 and platelet count 45. Sodium 135, potassium 3.9, creatinine 0.58. Alkaline phosphatase 131. Total bilirubin 2. Repeat chest x- ray reveals retrocardiac infiltrate and/or small left pleural effusion. May 24, 2024 Patient is seen and examined at bedside this a.m. Hemodynamically stable. Den ies any chest pain chest pressure. BP 127/58, heart rate 84 beats minute, Hemoglobin 11.8, platelets 72, HIT workup still awaited, BUN 18, creatinine 0.5 PHYSICAL EXAMINATION Vital signs reviewed. CONSTITUTIONAL: No apparent distress, intubated and sedated HEENT: Head is normocephalic. Pupils are equal, round. Sclerae anicteric. Mucous membranes of the mouth are moist. No JVD. No carotid bruit. CHEST EXAMINATION: Lungs are clear to auscultation. No chest wall tenderness is noted on palpation or with deep breathing. HEART EXAMINATION: Regular rate and rhythm. S1, S2 heard. No murmurs, gallops or rub. ABDOMEN: Soft, nontender. Positive bowel sounds. EXTREMITIES: 2+ peripheral pulses, no lower extremity edema and no calf tenderness. NEUROLOGIC EXAMINATION: Patient is intubated and sedated ASSESSMENT Non-STEMI, likely type II mechanism related to septic shock Sepsis with fever, tachycardia, white blood cell count and nausea and vomiting Septic shock Lactic acidosis Thrombocytopenia possibly due to sepsis rule out HIT CAD status post RCA stenting in 2022 Hypertension Hyperlipidemia PLAN Patient with main presentation of nausea, vomiting, fevers and diaphoresis. Echo shows preserved EF and mildly elevated troponins appear type II mechanism Presentation mainly appears related to sepsis with significant lactic acidosis. Continue with current supportive care. Discontinue Plavix permanently. Plan to start patient on aspirin following LP which is to be done early this week Obtain HIT panel-in progress . Hold heparin Objective - Vital Signs Vital signs: Vital Signs Temp 99.0 F 05/24/24 12:00 Pulse 84 05/24/24 15:00 Resp 18 05/24/24 15:00 BP 114/74 05/24/24 13:00 Pulse Ox 97 05/24/24 15:00 FiO2 30 05/24/24 15:21 Intake & Output 05/23/24 05/24/24 05/24/24 18:59 06:59 18:59 Intake Total 9420.101 7098.081 1269.738 Output Total 2360 1999 1690 Balance -564.897 33.081 -420.262 Weight 86.2 kg 86.2 kg Intake: IV 1014 858 702 Sodium Chloride 0.9% 1, 975 825 675 000 ml @ 75 mls/hr IV . [id number] [facility] Rx#:[id number] pressure bag 39 33 27 Intake, IV Titration 132.103 612.081 524.738 Amount Acyclovir Sodium 850 mg 250 250 In Sodium Chloride 0.9% 250 ml @ 267 mls/hr IVPB Q8HR [facility] Rx#:[id number] Piperacillin-Tazobactam 3 100 100 .375 gm In Sodium Chloride 0.9% 100 ml @ 25 mls/hr IVPB Q8HR [facility] Rx# :[id number] propofoL 1,000 mg In 132.103 262.081 174.738 Empty Bag 1 bag @ 15 MCG/ KG/MIN 7.83 mls/hr IV . [id number] Rx#:[id number] Tube Feeding 559 473 43 Other 90 90 Output: Urine 2359 1999 169 Other: Voiding Method Indwelling Catheter Indwelling Catheter Indwelling Catheter ABP, PAP, CO, CI - Last Documented Arterial Blood Pressure 127/58 - Labs CBC & Chem 7: 05/24/24 04:00 05/24/24 04:00 Labs: Abnormal Lab Results - Last 24 Hours (Table) 05/24/24 05/24/24 05/24/24 Range/Units 04:00 04:00 04:49 RBC 3.66 L (4.30-5.90) m/uL Hgb 11.8 L (13.0-17.5) gm/dL Hct 36.7 L (39.0-53.0) % MCV 100.1 H (80.0-100.0) fL Plt Count 72 L D (150-450) k/uL Lymphocytes # 0.5 L (1.0-4.8) k/uL ABG pO2 128 H (83-108) mmHg ABG HCO3 26 H (21-25) mmol/L ABG Total CO2 27 H (19-24) mmol/L ABG O2 Saturation 99.1 H (94-97) % Hemoglobin 12.3 L (13.0-17.5) gm/dL Sodium 136 L (137-145) mmol/L Chloride 109 H (98-107) mmol/L Creatinine 0.51 L (0.66-1.25) mg/dL Glucose 120 H (74-99) mg/dL Calcium 8.1 L (8.4-10.2) mg/dL Microbiology - Last 24 Hours (Table) 05/20/24 02:28 Blood Culture - Preliminary Blood
[2024-05-24 18:13] LABS: Glucose,Whole Blood 103 mg/dL (70-110)
[2024-05-24 23:21] LABS: Glucose,Whole Blood 105 mg/dL (70-110)
[2024-05-25 05:21] LABS: Basophils % (A) 0 %; Eosinophils # (A) 0.1 k/uL (0-0.7); Eosinophils % (A) 2 %; HCT 36.6 % (39.0-53.0); HGB 12.1 gm/dL (13.0-17.5); Lymphocytes # (A) 0.5 k/uL (1.0-4.8); Lymphocytes % (A) 9 %; MCH 32.7 pg (25.0-35.0); Mean Platelet Volume 8.3; Monocytes # (A) 0.4 k/uL (0-1.0); Monocytes % (A) 7 %; Neutrophils # (A) 4.5 k/uL (1.3-7.7); Neutrophils % (A) 81 %; RBC 3.69 m/uL (4.30-5.90); RDW 13.6 % (11.5-15.5); WBC 5.6 k/uL (3.8-10.6)
[2024-05-25 05:24] LABS: Platelet Count 89 k/uL (150-450)
--- NOTE | 2024-05-25 05:40 | P.PN ---
Subjective Progress Note Date: 05/24/24 HISTORY OF PRESENT ILLNESS: 64-year-old one of my office patient for many years with active medical history of CAD post PCI and stent placement of the RCA back in October 2022, history of chronic clinical hepatitis with early cirrhosis, history of chronic lower back pain with spinal stenosis, hypertension, hyperlipidemia, hyperglycemia, chronic lower back pain, recurrent pancreatitis, chronic history of neuropathy of the lower extremity, chronic kidney disease stage III, with history of BPH mild anxiety and edema who brought to the emergency department by EMS that patient apparently through the day developed to have severe nausea vomiting with recurrent abdominal pain according family heard stump with falling found him shaking and having seizure-like activity on the floor EMS were called to the scene when arrived found to have confused and combative they gave him 10 mg of Versed which made him very calm had no further seizure activity at the time. At the time of his arrival to the emergency department patient was very confused combative hypoxic and having worsening symptoms and that being in intubated and kept on mechanical ventilation and on sedation. At that point in the ER ended up doing CT of the brain and C-spine did not show any acute intracranial hemorr brando or abnormality and no midline shift, C-spine failed to show any fracture or subluxation. CT of the abdomen and pelvis did not show any obvious saddle pulmonary embolism no acute intracranial abdominal process was seen slight some abdominal wall thickening in the sigmoid colon most likely from chronic diverticulitis and incidental 10 mm of nonobstructive calculus within the mid dilated right renal pelvis. Patient was sedated on mechanical ventilation In the emergency department was giving cefepime UA was positive at the time drug screen was positive for opiates benzodiazepine and marijuana which patient taking medication and admitted taking marijuana every so often. [facility] and given duration patient be admitted to the ICU. 05/21/2024: Patient still intubated on mechanical ventilation in the ICU he is extremely agitated when trying to back off sedation, still with all the collected information from family seems like he had seizure EEG did not show any seizure activity at this point. With his low-grade temperature and not finding any source of infection or reason for his symptoms neurology is leaning toward having to do lumbar puncture for collection of spinal fluid for further analysis problem the patient had last dose of antiplatelet agent within the last 4 days which will be a close this time to be able to do LP will be around Friday next week. Meanwhile further recommendation by infectious disease for other infection specially infectious process like Lyme or other pathogen might be the source stomach not been found out. Echocardiogram was performed showed good ejection fraction with no valvular heart disease. Antibiotic was changed by infectious disease to Zosyn from cefepime. Laboratory value with white blood cell is down to 8000 no anemia urine test still showing some RBC more than WBC with large amount of blood and trace bacteria. Chest x-ray shows no acute cardiopulmonary process. 05/22/2024: Patient remain on mechanical ventilation, herpes antibody type I positive patient was started on acyclovir, antibiotic was switched to Zosyn as well. Repeat chest x-ray today still negative with no sign of aspiration or infection. Data been collected on Lyme and West Nile. Neurology still believe having to do LP will be valuable data is not marciano be done till Friday based on the last day he had antiplatelet agent which will make it safer by Friday only. Further management and finding including no fever at this point blood pressure and vitals are stable the patient is still not weanable of mechanical ventilation he is agitated when back off on sedation. 05/23/2024: Still sedated on mechanical ventilation, labs from this morning with white blood cell 6.4 normal kidney function, blood sugar running in the low 100s. Chest x-ray has been showing slight haziness in the right lower lobe. Apparently reviewed from infectious disease believe this is still can be an infectious process combination of either diverticulitis or aspiration pneumonia or a combination of both also the necessity to do lumbar puncture in last day of Plavix was 05/20/2024 waiting at least till 05/25/2024 which will be on Friday. 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 Still planning to do LP but not till Friday. Patient backing off on sedation he become quite agitated and not comfortable start thrashing everything around him making it not easy so far he still on mechanical ventilation. 05/24/2024: Patient remains on mechanical ventilation, hemodynamically still stable with pulse oximetry and FiO2 of 35 percentile still at 98%, laboratory value does not show any major abnormality, chest x-ray still shows mostly clear lung with slight haziness on the right basal mostly similar to obesity with slight aspiration. Currently no change on blood panel done for patient still on Zosyn and acyclovir waiting for aspiration pneumonia and diverticulitis his testing for West Nile still pending, Lyme test is not back yet he has herpes simplex 1 serology positive and treated with acyclovir. Patient be going for lumbar puncture tomorrow the earliest to allow enough time while on antiplatelet agent not to have any major impact with the test itself. At this stage and again patient should have probably feeding tube should start enteral feeding not wait any longer continue management for seizure as well as recommended by neurology. REVIEW OF SYSTEMS: CONSTITUTIONAL: Sedated on mechanical ventilation. EYES: No icterus sclerae, no conjunctivitis. EARS, NOSE, MOUTH, THROAT, and FACE: No sore throat, lymphadenopathy, carotid bruits or deformity. ET tube. RESPIRATORY: No SOB cough or wheezes. CARDIOVASCULAR: Intubated. No obvious complaint of chest pain or angina at times despite elevated troponin. GASTROINTESTINAL: Soft positive bowel sounds slight discomfort in the left lower quadrant area and right upper quadrant area as well no rebound or rigidity. GENITOURINARY: Negative for Hematuria or UTI, no kidney stones. INTEGUMENT/BREAST: Negative for any muscular injury with mild osteoarthritis.. HEMATOLOGIC/LYMPHATIC: Negative for bleed or purpura. MUSCULOSKELTAL: Negative for Myalgia or arthralgia. NEURLOGICAL: Sedated anything in ventilation. BEHAVIORAL/PSYCH: Negative. ENDOCRINE: Negative. PHYSICAL EXAMINATION: General Appearance: Sedated on mechanical ventilation with a ET tube in place. Neck HEENT: Supple, no lymphadenopathy, no thyroid enlargement, no carotid bruits. Lungs: Decreased breath sound bilaterally fine rhonchi mild expiratory wheezes. Chest Wall: Decreased expansion with deep inspiration no tenderness and no deformity was found on exam, no costochondral pain or discomfort. Heart: Regular rate and rhythm, S1, S2 normal, no murmur, rub or gallop. Back: Symmetric, no curvature, ROM normal, no CVA tenderness. Abdomen: Soft with slight distention and slight left lower quadrant and mid abdominal region discomfort with no rebound or rigidity. Extremities: Extremities normal, atraumatic, no cyanosis or edema. Pulses: 2+ and symmetric. Skin: Skin color, texture, tugor normal, no rashes or lesions. Neurologic: Sedated on mechanical ventilation. ASSESSMENT AND PLAN: _Most likely sepsis: Source is not clear at this point could be diverticulitis, aspiration pneumonia can be hepatic encephalitis patient is currently being covered for it eventually will be able to do lumbar puncture to find out if have any central nervous system with infection. Microbiology currently remain negative for any positive culture. Will continue current coverage with Zosyn and acyclovir. _Altered mental status: Most likely secondary to seizure, could be encephalopathy mostly metabolic will try to correct underlying disease also patient might be having manage STEMI might be a cause of the problem. Still no major finding at this point. _Seizure like activity: Negative EEG still on Keppra. _Respiratory failure: Remain on mechanical ventilation with assisted control and FiO2 of 35%, still on sedation unable to wean him off. _Non-STEMI: Most likely type II TN no real myocardial infarction or blockage still seen cardiology and echocardiogram was done. _Thrombocytopenia possibly due to sepsis rule out HIT platelet count is coming up since. Heparin is up to 72,000. _History of atherosclerotic heart disease: Post angioplasty and stent placement. _Severe GERD: Remain on proton pump inhibitor. _Nutrition: Enteral feeding should start probably NG tube start feeding him as early as today. 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 _Chronic lower back pain post surgical intervention: Remain on pain meds and muscle relaxer at this point. _Gastroparesis: Has been on Protonix and Reglan in the past with good follow-up. _Hypertension: Remain on metoprolol titrate 25 mg twice a day his blood pressure still high will add smaller dose of ARB. _Hyperlipidemia: Remain on Lipitor 40 mg a day. _Chronic depression anxiety attacks has been on escitalopram 20 and alprazolam 0.5 mg twice a day. Discussion: Awaiting for LP tomorrow, pulmonary still doing weaning parameter hoping to be able to wean him off patient is still quite agitated at any time try to back off on sedation. Objective - Vital Signs Vital signs: Vital Signs Temp 98.3 F 05/24/24 04:00 Pulse 85 05/24/24 05:00 Resp 20 05/24/24 05:00 BP 133/88 05/24/24 05:00 Pulse Ox 98 05/24/24 05:00 FiO2 35 05/24/24 04:00 Intake & Output 10/06/24 10/06/24 10/07/24 06:59 18:59 06:59 Intake Total 8202.299 3822.103 1912.081 Output Total 1465 2360 1850 Balance 421.892 -564.897 62.081 Weight 86 kg Intake: IV 858 1014 780 Sodium Chloride 0.9% 1, 825 975 750 000 ml @ 75 mls/hr IV . [id number] [facility] Rx#:[id number] pressure bag 33 39 30 Intake, IV Titration 318.892 132.103 612.081 Amount Acyclovir Sodium 850 mg 250 In Sodium Chloride 0.9% 250 ml @ 267 mls/hr IVPB Q8HR [facility] Rx#:[id number] Piperacillin-Tazobactam 3 100 .375 gm In Sodium Chloride 0.9% 100 ml @ 25 mls/hr IVPB Q8HR [facility] Rx# :[id number] propofoL 1,000 mg In 318.892 132.103 262.081 Empty Bag 1 bag @ 15 MCG/ KG/MIN 7.83 mls/hr IV . [id number] [facility] Rx#:[id number] Tube Feeding 470 559 430 Other 240 90 90 Output: Urine 1465 2360 1850 Other: Voiding Method Indwelling Catheter Indwelling Catheter Indwelling Catheter ABP, PAP, CO, CI - Last Documented Arterial Blood Pressure 119/58 - Labs CBC & Chem 7: 05/24/24 04:00 05/24/24 04:00 Labs: Abnormal Lab Results - Last 24 Hours (Table) 05/23/24 05/24/24 05/24/24 Range/Units 12:06 04:00 04:00 RBC 3.66 L (4.30-5.90) m/uL Hgb 11.8 L (13.0-17.5) gm/dL Hct 36.7 L (39.0-53.0) % MCV 100.1 H (80.0-100.0) fL Plt Count 72 L D (150-450) k/uL Lymphocytes # 0.5 L (1.0-4.8) k/uL ABG pO2 (83-108) mmHg ABG HCO3 (21-25) mmol/L ABG Total CO2 (19-24) mmol/L ABG O2 Saturation (94-97) % Hemoglobin (13.0-17.5) gm/dL Sodium 136 L (137-145) mmol/L Chloride 109 H (98-107) mmol/L Creatinine 0.51 L (0.66-1.25) mg/dL Glucose 120 H (74-99) mg/dL POC Glucose (mg/dL) 114 H (70-110) mg/dL Calcium 8.1 L (8.4-10.2) mg/dL 05/24/24 Range/Units 04:49 RBC (4.30-5.90) m/uL Hgb (13.0-17.5) gm/dL Hct (39.0-53.0) % MCV (80.0-100.0) fL Plt Count (150-450) k/uL Lymphocytes # (1.0-4.8) k/uL ABG pO2 128 H (83-108) mmHg ABG HCO3 26 H (21-25) mmol/L ABG Total CO2 27 H (19-24) mmol/L ABG O2 Saturation 99.1 H (94-97) % Hemoglobin 12.3 L (13.0-17.5) gm/dL Sodium (137-145) mmol/L Chloride (98-107) mmol/L Creatinine (0.66-1.25) mg/dL Glucose (74-99) mg/dL POC Glucose (mg/dL) (70-110) mg/dL Calcium (8.4-10.2) mg/dL Microbiology - Last 24 Hours (Table) 05/20/24 02:28 Blood Culture - Preliminary Blood 05/21/24 12:55 Gram Stain - Final Sputum Sputum Culture - Final
[2024-05-25 05:46] LABS: African American GFR (CKD) >90 (>60 ml/min/1.73 sqM); Anion Gap 2 mmol/L; Blood Urea Nitrogen 19 mg/dL (9-20); Calcium 8.1 mg/dL (8.4-10.2); Carbon Dioxide 25 mmol/L (22-30); Chloride 110 mmol/L (98-107); Glucose 114 mg/dL (74-99); Magnesium 1.9 mg/dL (1.6-2.3); Non-African American GFR(CKD) >90 (>60 ml/min/1.73 sqM); Potassium 4.1 mmol/L (3.5-5.1); Sodium 137 mmol/L (137-145)
[2024-05-25 06:19] LABS: ABG Base Excess 1.9 mmol/L; ABG HCO3 26 mmol/L (21-25); ABG Oxygen Saturation 92.6 % (94-97); ABG PCO2 38 mmHg (35-45); ABG PH 7.45 (7.35-7.45); ABG PO2 62 mmHg (83-108); ABG TCO2 27 mmol/L (19-24); Allen Test Performed? Yes
[2024-05-25 06:27] LABS: Glucose,Whole Blood 103 mg/dL (70-110)
--- NOTE | 2024-05-25 07:22 | P.PN ---
Subjective Progress Note Date: 05/24/24 Principal diagnosis: Reason for follow-up is fever question of encephalitis Patient is a 64-year-old male with a past medical history significant for coronary disease reflux hypertension [place], patient was brought into the hospital with an episode of nausea vomiting agitation and seizure-like activity he did have low-grade fever got elevated to protect his airways. On today's evaluation that is 05/24/2024,the patient remains to be afebrile, patient is on ventilator FiO2 is currently stable at 30% no significant purulent secretions through the ET, vomiting or diarrhea reported by the nursing staff patient not requiring any pressor support. Patient white count is 5.4 creatinine is 0.51 Objective - Vital Signs Vital signs: Vital Signs Temp 98.2 F 05/24/24 08:00 Pulse 86 05/24/24 10:00 Resp 19 05/24/24 10:00 BP 100/70 05/24/24 09:00 Pulse Ox 97 05/24/24 10:00 FiO2 35 05/24/24 08:07 Intake & Output 05/23/24 05/24/24 05/24/24 18:59 06:59 18:59 Intake Total 7336.583 3612.081 807.182 Output Total 2360 1999 625 Balance -564.897 33.081 182.182 Weight 86.2 kg Intake: IV 1014 858 312 Sodium Chloride 0.9% 1, 975 825 300 000 ml @ 75 mls/hr IV . [id number] [facility] Rx#:[id number] pressure bag 39 33 12 Intake, IV Titration 132.103 612.081 452.182 Amount Acyclovir Sodium 850 mg 250 250 In Sodium Chloride 0.9% 250 ml @ 267 mls/hr IVPB Q8HR [facility] Rx#:[id number] Piperacillin-Tazobactam 3 100 100 .375 gm In Sodium Chloride 0.9% 100 ml @ 25 mls/hr IVPB Q8HR [facility] Rx# :[id number] propofoL 1,000 mg In 132.103 262.081 102.182 Empty Bag 1 bag @ 15 MCG/ KG/MIN 7.83 mls/hr IV . [id number] [facility] Rx#:[id number] Tube Feeding 559 473 43 Other 90 90 Output: Urine 2360 1999 625 Other: Voiding Method Indwelling Catheter Indwelling Catheter Indwelling Catheter ABP, PAP, CO, CI - Last Documented Arterial Blood Pressure 142/63 - Exam GENERAL DESCRIPTION: An elderly male intubated on the vent RESPIRATORY SYSTEM: Unlabored breathing , decreased breath sounds at bases HEART: S1 S2 regular rate and rhythm , ABDOMEN: Soft , no tenderness EXTREMITIES: No edema feet - Labs CBC & Chem 7: 05/25/24 05:00 05/25/24 05:00 Labs: Abnormal Lab Results - Last 24 Hours (Table) 05/23/24 05/24/24 05/24/24 Range/Units 12:06 04:00 04:00 RBC 3.66 L (4.30-5.90) m/uL Hgb 11.8 L (13.0-17.5) gm/dL Hct 36.7 L (39.0-53.0) % MCV 100.1 H (80.0-100.0) fL Plt Count 72 L D (150-450) k/uL Lymphocytes # 0.5 L (1.0-4.8) k/uL ABG pO2 (83-108) mmHg ABG HCO3 (21-25) mmol/L ABG Total CO2 (19-24) mmol/L ABG O2 Saturation (94-97) % Hemoglobin (13.0-17.5) gm/dL Sodium 136 L (137-145) mmol/L Chloride 109 H (98-107) mmol/L Creatinine 0.51 L (0.66-1.25) mg/dL Glucose 120 H (74-99) mg/dL POC Glucose (mg/dL) 114 H (70-110) mg/dL Calcium 8.1 L (8.4-10.2) mg/dL 05/24/24 Range/Units 04:49 RBC (4.30-5.90) m/uL Hgb (13.0-17.5) gm/dL Hct (39.0-53.0) % MCV (80.0-100.0) fL Plt Count (150-450) k/uL Lymphocytes # (1.0-4.8) k/uL ABG pO2 128 H (83-108) mmHg ABG HCO3 26 H (21-25) mmol/L ABG Total CO2 27 H (19-24) mmol/L ABG O2 Saturation 99.1 H (94-97) % Hemoglobin 12.3 L (13.0-17.5) gm/dL Sodium (137-145) mmol/L Chloride (98-107) mmol/L Creatinine (0.66-1.25) mg/dL Glucose (74-99) mg/dL POC Glucose (mg/dL) (70-110) mg/dL Calcium (8.4-10.2) mg/dL Microbiology - Last 24 Hours (Table) 05/20/24 02:28 Blood Culture - Preliminary Blood 05/21/24 12:55 Gram Stain - Final Sputum Sputum Culture - Final Assessment and Plan (1) Acute encephalopathy Current Visit: Yes Status: Acute Code(s): G93.40 - ENCEPHALOPATHY, UNSPECIFIED SNOMED Code(s): 28869744 (2) Fever Current Visit: Yes Status: Acute Code(s): R50.9 - FEVER, UNSPECIFIED SNOMED Code(s): 040558987 Plan: 1patient presented to hospital with rigors and chills mental status changes and apparently the patient did have significant vomiting the day before presentation to the hospital and did have extensive workup no significant finding except div erticulitis reported by the radiologist on the CT however keeping in mind significant mental status changes agitation combativeness and fever will point was possible encephalitis with a question of possible herpes versus West Nile in the differential, and will also cover for possible component of aspiration pneumonitis/diverticulitis 2-LP has been discussed with the neurologist however the patient has been on Plavix which was discontinued 05/20/2024 hence we will need to wait for at least 5 days before LP could be completed, hopefully can be completed tomorrow as per discussion with the nursing staff 3-HSV-1 serology came back positive HSV-2 serology negative 4-patient is afebrile, white count is normal 5patient to continue with Zosyn and acyclovir and monitor clinical course closely Dictation was produced using [employer] dictation software. please excuse any grammatical, word or spelling errors. Time with Patient: Less than 30
--- NOTE | 2024-05-25 09:18 | XR ---
EXAMINATION TYPE: XR chest 1V portable DATE OF EXAM: 05/25/2024 Comparison: 05/24/2024 Clinical History: 64-year-old male Intubated Findings: Heart is normal size. ET and NG tubes are satisfactory. Some strandy atelectasis in the lower lungs. Interstitial densities have improved from prior exam. No rhiannon consolidation or pleural effusion. Impression: Aeration has improved from prior. Some minimal strandy atelectasis may remain at the lung bases. [facility], , 05/25/2024 9:16 AM
--- NOTE | 2024-05-25 09:48 | P.PN ---
Subjective Progress Note Date: 05/25/24 HISTORY OF PRESENTING ILLNESS This is a pleasant 64-year-old with past medical history significant for CAD status post PCI of the RCA October 2022, chronic pain, hyperlipidemia, depression, anxiety who presents secondary to epigastric discomfort, nausea, vomiting, diaphoresis. Patient currently intubated and sedated history is supplied by family members. Family states he had been feeling fine and then within a few hours started having nausea, upset stomach and breaking out in a profuse sweat. They were concerned secondary to some of his symptoms of sweating been similar to his prior cardiac arrest and stenting. He had been doing fairly well and has been over 12 months since his stenting however apparently had been placed on Plavix and aspirin discontinued in the past.. He follows in the office with Dr Robles. He was combative in the emergency department and he required Ativan and became lethargic and required intubation. His lactic acid was significantly elevated at 9 and blood pressure borderline in the 80s over 50s additionally had borderline fever with temperature 100.4. Currently he is intubated and sedated on ventilator. Blood work White blood cell count 13.5, creatinine 0.8, lactic acid 9.5 down to 2.4, troponin 0.07, 0.09, 0.08. EKG showed normal sinus rhythm with no significant ST or T-wave abnormalities. 05/21 Patient seen and examined. Patient remains intubated and sedated. Blood pressures stable off of any vasopressors. Per nursing he has been somewhat restless and was placed Versed. 40% FiO2. Remains on propofol as well. Echo showed preserved EF. EEG was performed with generalized background slowing. 05/22 Patient seen and examined. Patient remains intubated and on mechanical ventilation. Plavix may be discontinued as his last stent was in 2022. He is tentatively scheduled for LP on Friday. Blood pressure 117/62, heart rate 77, pulse ox 100%. Repeat blood work reveals platelet count of 37, hemoglobin 12.1. Creatinine 0.6. 05/23 Patient seen and examined in the intensive care unit. Patient remains intubated on mechanical ventilation. Patient had a sedation holiday yesterday that failed. He has had good urine output. Plan is to do LP early this week as patient has been off Plavix for longer than was originally known. Blood pres sure 124/56, heart rate in the 80s and 90s, pulse ox 97%. Repeat blood work reveals hemoglobin 12.1 and platelet count 45. Sodium 135, potassium 3.9, creatinine 0.58. Alkaline phosphatase 131. Total bilirubin 2. Repeat chest x- ray reveals retrocardiac infiltrate and/or small left pleural effusion. May 24, 2024 Patient is seen and examined at bedside this a.m. Hemodynamically stable. Den ies any chest pain chest pressure. BP 127/58, heart rate 84 beats minute, Hemoglobin 11.8, platelets 72, HIT workup still awaited, BUN 18, creatinine 0.5 May 25, 2024 Patient is seen and examined at bedside this a.m. Patient blood pressure 126/57 via arterial line. Heart rate 93, sinus rhythm. Patient is currently on propofol and IV fluids. Kidney function is stable. Platelets are improving. No signs of bleeding. Patient is due to undergo a lumbar puncture today. He stays on ventilator support. PHYSICAL EXAMINATION Vital signs reviewed. CONSTITUTIONAL: No apparent distress, intubated and sedated HEENT: Head is normocephalic. Pupils are equal, round. Sclerae anicteric. Mucous membranes of the mouth are moist. No JVD. No carotid bruit. CHEST EXAMINATION: On vent support, lungs are clear to auscultate HEART EXAMINATION: Regular rate and rhythm. S1, S2 heard. No murmurs, gallops or rub. ABDOMEN: Soft, nontender. Positive bowel sounds. EXTREMITIES: No significant swelling in bilateral lower extremity. NEUROLOGIC EXAMINATION: Patient is intubated and sedated ASSESSMENT Non-STEMI, likely type II mechanism related to septic shock Sepsis with fever, tachycardia, white blood cell count and nausea and vomiting Septic shock Lactic acidosis Thrombocytopenia possibly due to sepsis rule out HIT CAD status post RCA stenting in 2022 Hypertension Hyperlipidemia Echocardiogram showed preserved LVEF of 55 to 60% with no major valvular abnormality PLAN Patient had type II NSTEMI because of underlying sepsis. Because of thrombocytopenia after starting IV heparin drip and concerns of heparin-induced thrombocytopenia, we have discontinued IV heparin drip. We will discontinue Plavix. Will resume aspirin after the lumbar puncture. Continue with current supportive care. Obtain HIT panel Overall prognosis is guarded Objective - Vital Signs Vital signs: Vital Signs Temp 99.2 F 05/25/24 08:00 Pulse 87 05/25/24 08:00 Resp 22 05/25/24 08:00 BP 131/80 05/25/24 08:00 Pulse Ox 97 05/25/24 08:00 FiO2 30 05/25/24 08:00 Intake & Output 05/24/24 05/25/24 05/25/24 18:59 06:59 18:59 Intake Total 1930.334 3507.520 602.82 Output Total 2215 1575 155 Balance -385.398 140.520 447.82 Weight 86.2 kg 96.2 kg Intake: IV 936 936 406 Acyclovir Sodium 850 mg 250 In Sodium Chloride 0.9% 250 ml @ 267 mls/hr IVPB Q8HR [facility] Rx#:[id number] Sodium Chloride 0.9% 1, 900 900 150 000 ml @ 75 mls/hr IV . [id number] [facility] Rx#:[id number] pressure bag 36 36 6 Intake, IV Titration 850.602 183.520 74.82 Amount Acyclovir Sodium 850 mg 500 In Sodium Chloride 0.9% 250 ml @ 267 mls/hr IVPB Q8HR [facility] Rx#:[id number] Piperacillin-Tazobactam 3 100 .375 gm In Sodium Chloride 0.9% 100 ml @ 25 mls/hr IVPB Q8HR [facility] Rx# :[id number] propofoL 1,000 mg In 250.602 183.520 74.82 Empty Bag 1 bag @ 15 MCG/ KG/MIN 7.83 mls/hr IV . [id number] [facility] Rx#:[id number] Tube Feeding 43 506 92 Other 90 30 Output: Urine 2215 1575 155 Other: Voiding Method Indwelling Catheter Indwelling Catheter Indwelling Catheter ABP, PAP, CO, CI - Last Documented Arterial Blood Pressure 125/59 - Labs CBC & Chem 7: 05/25/24 05:00 05/25/24 05:00 Labs: Abnormal Lab Results - Last 24 Hours (Table) 05/24/24 05/25/24 05/25/24 Range/Units 04:00 05:00 05:00 RBC 3.69 L (4.30-5.90) m/uL Hgb 12.1 L (13.0-17.5) gm/dL Hct 36.6 L (39.0-53.0) % Plt Count 72 L D 89 L (150-450) k/uL Lymphocytes # 0.5 L (1.0-4.8) k/uL ABG pO2 (83-108) mmHg ABG HCO3 (21-25) mmol/L ABG Total CO2 (19-24) mmol/L ABG O2 Saturation (94-97) % Hemoglobin (13.0-17.5) gm/dL Chloride 110 H (98-107) mmol/L Creatinine 0.48 L (0.66-1.25) mg/dL Glucose 114 H (74-99) mg/dL Calcium 8.1 L (8.4-10.2) mg/dL 05/25/24 Range/Units 06:16 RBC (4.30-5.90) m/uL Hgb (13.0-17.5) gm/dL Hct (39.0-53.0) % Plt Count (150-450) k/uL Lymphocytes # (1.0-4.8) k/uL ABG pO2 62 L (83-108) mmHg ABG HCO3 26 H (21-25) mmol/L ABG Total CO2 27 H (19-24) mmol/L ABG O2 Saturation 92.6 L (94-97) % Hemoglobin 12.0 L (13.0-17.5) gm/dL Chloride (98-107) mmol/L Creatinine (0.66-1.25) mg/dL Glucose (74-99) mg/dL Calcium (8.4-10.2) mg/dL
--- NOTE | 2024-05-25 12:45 | P.PN ---
Subjective Progress Note Date: 05/25/24 Principal diagnosis: Respiratory failure. Patient is a 64-year-old male with past medical history significant for coronary artery disease with previous PCI/stent, syncope, hypertension, hyperlipidemia, among other things. Patient is currently intubated to the mechanical ventila [facility], unable to provide any information for HPI. Patient presented emergency department early this morning. Apparently, family heard the patient fall from a different room. They found him on the floor shaking with reported seizure-like activity. When EMS arrived patient was confused and combative. They did give 10 mg of IM Versed. On arrival to the emergency department, patient was intubated by the ER provider. He is underwent an extensive workup. CT of the brain and C-spine did not show any acute intracranial hemorrhage, no midline shift or mass effect. No C-spine fracture or subluxation. Apparently, the patient was having nausea and vomiting and fever. A CT of the chest abdomen and pelvis did not show obvious saddle PE. No acute intra-abdominal process. There was some abdominal wall thickening of the sigmoid colon, likely from chronic diverticulitis. Incidentally, a 10 mm nonobstructive calculus seen in the mildly dilated right renal pelvis. Patient remains in the emergency department on my evaluation, in trauma bay 2. Remains intubated mechanical ventilator with current ventilator settings including assist-control, respiratory rate 18, tidal volume 450, FiO2 50%, PEEP of 5. Postintubation ABG includes a PaO2 of greater than 420, pCO2 of 40, and pH of 7.3. This was done on a FiO2 of 100%. He is on propofol currently infusing at 25 mcg/kg/min. Synchronous with current ventilator settings. Fentanyl is also infusing at 2 mcg/kg/h. Heparin infusing per protocol. Patient did have some elevated troponins on presentation of the 0.07 and 0.09 respectively. EKG: Sinus tachycardia, rate 101 bpm, no obvious acute ischemic changes. Body temperature now hypothermic, currently 36 C with Porsha hugger on, heart rate 83 bpm, blood pressure normotensive at 105/71 mmHg, SpO2 98%. CBC: WBC count 13.5, hemoglobin 17, hematocrit 52.7, platelets 123. CMP: Sodium 137, potassium 4.2, chloride 105, serum bicarb 12, BUN 28, creatinine 0.8, glucose 144. Lactic elevated at 9.5. LFTs unremarkable. Patient did have a fever of 100 degrees on arrival to the emergency department. Was given dose of cefepime. UA not very remarkable for infection, rare bacteria. Urine drug screen positive for opiates, benzodiazepines, marijuana. Serum alcohol level less than 10. Patient was loaded with Keppra in the emergency department. No further seizure-like activity noted. Patient was evaluated today on 05/21/2024. Remains in the ICU, intubated and mechanically ventilated, patient remains on antibiotics remains on seizure medications he is on assist-control rate of 18 tidal volume 450 FiO2 40% and PEEP of 5 ABG showed a pO2 of 120 pCO2 36 pH of 7.42 hands his FiO2 was cut down to 35%. Patient became extremely agitated last night and early this morning, and he was not mentally appropriate, hence required more sedation to be able to ventilating properly we had to increase his Versed to 5 mg/h he remains on propofol at 45 mcg/kg/min. Patient also spiked a temp yesterday, and neurology is likely to recommend lumbar puncture on this patient today. His EEG showed mostly slowing activity but no seizures. Patient is maintained on Keppra his carotid studies are negative his echocardiogram showed good LV function with ejection fraction of 60 to 65%, no significant valvular heart disease. I was planning to consider weaning on this patient today, however with his present condition this is placed on hold. On admission patient was placed on Unasyn for possible aspiration pneumonia, chest x-ray today is reassuring. Minimal atelectasis no clear-cut evidence of pneumonia. However considering his intermittent fevers, will continue on Unasyn for now. And again the patient may require lumbar puncture todayWBC count today is 8 hemoglobin is 13.3 electrolytes are normal potassium is a bit low at 3.5, Today on 05/22/2024, remains in the ICU, intubated and mechanically ventilated. No lumbar puncture was done for some reason, however the patient antibiotics were adjusted seen by infectious disease and now he is covered with acyclovir and Zosyn. He was on Unasyn initially. Patient remains on mechanical ventilation, assist-control rate of 18 tidal volume 450 FiO2 35% and PEEP of 5 ABG showed a pO2 of 102 pCO2 34 pH of 7.46. Remains on Versed at 6 mg/h propofol at 50 mcg/kg/min IV fluid 75 cc/h of 0.9 normal saline. Patient is now off Plavix, apparently the lumbar puncture will not be done until he is off Plavix for 5 days. Chest x-ray showed minimal basilar atelectasis especially of the left base no clear-cut evidence of pneumonia. EEG showed generalized slowing of moderate to severe degree. Suggestive of generalized cerebral dysfunction. No definite seizure focus. CBC is relatively normal basic metabolic profile is relatively normal renal profile is normal Patient was evaluated today on 05/23/2024, remains in the ICU, intubated and mechanically ventilated. On assist-control rate of 18 tidal volume 450 FiO2 35% and PEEP of 5 ABG showed a pO2 of 95 pCO2 38 pH of 7.43, hence did not recommend any change in ventilator settings. Patient remains encephalopathic, when he went off propofol for a brief period of time today, patient remained unresponsive to any stimuli, gets agitated easily, no purposeful movement, patient has upward gaze deviation of his eyes, remains on propofol at 30 and he is on enteral feeding in the form of vital AF 1.243/43 at 75 cc/h. His procalcitonin level is normal at 0.12 patient was seen by infectious disease and seen by neurology, and the plan is to have lumbar puncture on this patient tomorrow. Chest x-ray showed mostly retrocardiac infiltrate and small left pleural effusion WBC 6.4 hemoglobin 12.1 basic metabolic profile is normal renal profile is normal Progress note dated May 24, 2024. 64-year-old male who was admitted back on May 20. He apparently had a fall, had evidence of fever, and elevated troponins. The patient came to the intensive care unit on May 20, and was intubated on May 20. Since that time, he has been evaluated for possible encephalopathy. The lumbar puncture is planned for tomorrow. The patient remains on the mechanical ventilator. He is on volume assist-control, rate 18, tidal volume 450, FiO2 35% to be dropped down to 30%, and PEEP of 5. Blood gases show pO2 of 128, pCO2 40, pH of 7.43. His procalcitonin level was 0.12. Zosyn is discontinued. He continues on propofol at 40 mcg/kg/min, saline at 75 cc an hour, and vital AF at 43 cc an hour, which is goal. In addition to Zosyn, he is on acyclovir. We will attempt a daily interruption of sedation. Current labs include a white count 5.4, hemoglobin 11.8, macro 36.7, and platelet count of 72,000. Sodium 136, potassium 3.9, chlorides 109, CO2 24, BUN 18, creatinine 0.51. Glucose is 120. Calcium is 8.1. Blood and sputum sampling are negative. Chest x-ray shows some improved patchy bibasilar opacities. Progress note dated May 25, 2024. 64-year-old male admitted back on May 20. The patient remains in the ICU, in room 258. The patient remains on mechanical ventilator. Ventilator settings include volume assist-control, rate 18, tidal volume 450, FiO2 30%, PEEP of 5. Blood gases show pO2 of 62, pCO2 38, pH is 7.45. The patient remains on propofol at 50 mcg/kg/min, saline at 75 cc an hour, and vital AF at 46 cc an hour, which is goal. The patient had an uneventful night. He did relatively well yesterday on his daily interruption of sedation and spontaneous breathing trial, although he had copious secretions. White count 5.6, hemoglobin 12.1, hematocrit 36.6, platelet count 89,000. Sodium is 137, potassium 4.1, chlorides 110, CO2 25, BUN 19, creatinine 0.48. Calcium is 8.1. Glucose is 103. Microbiologic studies are thus far negative. Chest x-ray shows improved aeration of both lung veliz. Objective - Vital Signs Vital signs: Vital Signs Temp 99.2 F 05/25/24 08:00 Pulse 90 05/25/24 11:00 Resp 23 05/25/24 11:00 BP 129/78 05/25/24 11:00 Pulse Ox 92 L 05/25/24 11:00 FiO2 30 05/25/24 12:27 Intake & Output 05/24/24 05/25/24 05/25/24 18:59 06:59 18:59 Intake Total 2330.033 1098.520 1021.583 Output Total 2215 1575 405 Balance -385.398 140.520 616.583 Weight 86.2 kg 96.2 kg Intake: IV 936 936 640 Acyclovir Sodium 850 mg 250 In Sodium Chloride 0.9% 250 ml @ 267 mls/hr IVPB Q8HR [facility] Rx#:[id number] Sodium Chloride 0.9% 1, 900 900 375 000 ml @ 75 mls/hr IV . [id number] [facility] Rx#:[id number] pressure bag 36 36 15 Intake, IV Titration 850.602 183.520 121.583 Amount Acyclovir Sodium 850 mg 500 In Sodium Chloride 0.9% 250 ml @ 267 mls/hr IVPB Q8HR [facility] Rx#:[id number] Piperacillin-Tazobactam 3 100 .375 gm In Sodium Chloride 0.9% 100 ml @ 25 mls/hr IVPB Q8HR [facility] Rx# :[id number] propofoL 1,000 mg In 250.602 183.520 121.583 Empty Bag 1 bag @ 15 MCG/ KG/MIN 7.83 mls/hr IV . [id number] [facility] Rx#:[id number] Tube Feeding 43 506 230 Other 90 30 Output: Urine 2215 1575 405 Other: Voiding Method Indwelling Catheter Indwelling Catheter Indwelling Catheter ABP, PAP, CO, CI - Last Documented Arterial Blood Pressure 111/51 - Exam No acute distress, sedated, with an orally placed endotracheal tube. HEENT examination is grossly unremarkable. Mucous membranes are moist. No oral lesions. Neck supple. Full range of motion. No adenopathy thyromegaly or neck vein distention. Cardiovascular examination reveals regular rhythm rate. S1-S2 normal. No S3 or S4. No discernible murmur noted. Lungs reveal mild scattered rhonchi. No wheezes. No crackles. Breath sounds equal. Abdomen soft bowel sounds are heard. No masses or tenderness. Extremities are intact. No cyanosis clubbing or edema. Skin is without rash or lesion. Neurologic examination cannot be fully evaluated at this time. - Labs CBC & Chem 7: 05/25/24 05:00 05/25/24 05:00 Labs: Abnormal Lab Results - Last 24 Hours (Table) 05/24/24 05/25/24 05/25/24 Range/Units 04:00 05:00 05:00 RBC 3.69 L (4.30-5.90) m/uL Hgb 12.1 L (13.0-17.5) gm/dL Hct 36.6 L (39.0-53.0) % Plt Count 72 L D 89 L (150-450) k/uL Lymphocytes # 0.5 L (1.0-4.8) k/uL ABG pO2 (83-108) mmHg ABG HCO3 (21-25) mmol/L ABG Total CO2 (19-24) mmol/L ABG O2 Saturation (94-97) % Hemoglobin (13.0-17.5) gm/dL Chloride 110 H (98-107) mmol/L Creatinine 0.48 L (0.66-1.25) mg/dL Glucose 114 H (74-99) mg/dL Calcium 8.1 L (8.4-10.2) mg/dL 05/25/24 Range/Units 06:16 RBC (4.30-5.90) m/uL Hgb (13.0-17.5) gm/dL Hct (39.0-53.0) % Plt Count (150-450) k/uL Lymphocytes # (1.0-4.8) k/uL ABG pO2 62 L (83-108) mmHg ABG HCO3 26 H (21-25) mmol/L ABG Total CO2 27 H (19-24) mmol/L ABG O2 Saturation 92.6 L (94-97) % Hemoglobin 12.0 L (13.0-17.5) gm/dL Chloride (98-107) mmol/L Creatinine (0.66-1.25) mg/dL Glucose (74-99) mg/dL Calcium (8.4-10.2) mg/dL Assessment and Plan Assessment: Acute mental status changes, of unclear etiology. Metabolic encephalopathy. Rule out JIRA ADMINISTRATOR infection. Acute sepsis, source not clear. Acute syncopal episode, versus seizure. Respiratory failure requiring intubation and mechanical ventilation, beginning on May 20, 2024. History of CAD with previous PCI/stent. Hyperlipidemia. Benign essential hypertension. History of marijuana use. Plan: Plan dated May 24, 2024. The patient was admitted on 20 May. The patient was intubated on the same day. The patient had acute mental status changes, and is remains on mechanical ventilator. The FiO2 is reduced from 35%, down to 30%. Will discontinue Zosyn as the procalcitonin level is 0.12. The patient should continue on acyclovir. We will wake up the patient, and attempt a spontaneous breathing trial. He may not be ready. Additional recommendations and suggestions are forthcoming. Labs, x-rays, and medications are reviewed. We will continue nutritional support, and GI/DVT prophylaxis. LP is planned for tomorrow. Plan dated May 25, 2024. The patient is seen today in room 258. We will attempt another daily interruption of sedation, possible spontaneous breathing trial. The patient is scheduled to have a lumbar puncture today. Antibiotics in the form of Zosyn were discontinued yesterday, because his procalcitonin level was normal. He continues on acyclovir for presumed viral encephalopathy. Labs, x-rays, and all medications are reviewed. We will continue to follow make recommendations along the way. Prognosis is certainly guarded. The patient remains on the ventilator. Yesterday, he did well on a spontaneous breathing trial, save for copious secretions. Time with Patient: Greater than 30
[2024-05-25 13:35] LABS: HCT 33.8 % (39.0-53.0); HGB 11.4 gm/dL (13.0-17.5); MCH 33.1 pg (25.0-35.0); MCHC 33.7 g/dL (31.0-37.0); MCV 98.1 fL (80.0-100.0); Mean Platelet Volume 8.7; RBC 3.44 m/uL (4.30-5.90); RDW 14.1 % (11.5-15.5); WBC 5.7 k/uL (3.8-10.6)
[2024-05-25 13:55] LABS: Platelet Count 82 k/uL (150-450)
--- NOTE | 2024-05-25 16:44 | P.PN ---
Subjective Progress Note Date: 05/25/24 I am seeing patient for the first time during this admission. Please refer to Dr. lOvera's note for further details. Seems the patient has altered mental status of unclear cause. Patient is having lumbar puncture scheduled tomorrow. He is intubated on the ventilator and he is on IV propofol Objective - Vital Signs Vital signs: Vital Signs Temp 98.7 F 05/25/24 16:00 Pulse 87 05/25/24 16:00 Resp 19 05/25/24 16:00 BP 155/98 05/25/24 15:00 Pulse Ox 97 05/25/24 16:00 FiO2 30 05/25/24 16:00 Intake & Output 05/24/24 05/25/24 05/25/24 18:59 06:59 18:59 Intake Total 9417.127 1852.520 1721.293 Output Total 2215 1575 1140 Balance -385.398 140.520 581.293 Weight 86.2 kg 96.2 kg Intake: IV 302 268 7612 Acyclovir Sodium 850 mg 250 In Sodium Chloride 0.9% 250 ml @ 267 mls/hr IVPB Q8HR [facility] Rx#:[id number] Sodium Chloride 0.9% 1, 900 900 750 000 ml @ 75 mls/hr IV . [id number] [facility] Rx#:[id number] pressure bag 36 36 30 Intake, IV Titration 850.602 183.520 155.293 Amount Acyclovir Sodium 850 mg 500 In Sodium Chloride 0.9% 250 ml @ 267 mls/hr IVPB Q8HR [facility] Rx#:[id number] Piperacillin-Tazobactam 3 100 .375 gm In Sodium Chloride 0.9% 100 ml @ 25 mls/hr IVPB Q8HR [facility] Rx# :[id number] propofoL 1,000 mg In 250.602 183.520 155.293 Empty Bag 1 bag @ 15 MCG/ KG/MIN 7.83 mls/hr IV . [id number] [facility] Rx#:[id number] Oral 46 Tube Feeding 43 506 460 Other 90 30 Output: Urine 2215 1575 1140 Other: Voiding Method Indwelling Catheter Indwelling Catheter Indwelling Catheter ABP, PAP, CO, CI - Last Documented Arterial Blood Pressure 124/54 - Exam General: Lying in bed and does not appear in acute distress. Lung: INtubated on a ventilator. Neuro: Very Limited. Patient is on IV propofol 50 mcg/kg/min. Patient is comatose. He attempts to open his eyes. Otherwise no spontaneous moving not verbalizing or following commands. I eventually open the eyes and the pupils are 2 mm bilaterally sluggishly reactive to light. No facial weakness from limitation of examination. - Labs CBC & Chem 7: 05/25/24 13:25 05/25/24 05:00 Labs: Abnormal Lab Results - Last 24 Hours (Table) 05/25/24 05/25/24 05/25/24 Range/Units 05:00 05:00 06:16 RBC 3.69 L (4.30-5.90) m/uL Hgb 12.1 L (13.0-17.5) gm/dL Hct 36.6 L (39.0-53.0) % Plt Count 89 L (150-450) k/uL Lymphocytes # 0.5 L (1.0-4.8) k/uL ABG pO2 62 L (83-108) mmHg ABG HCO3 26 H (21-25) mmol/L ABG Total CO2 27 H (19-24) mmol/L ABG O2 Saturation 92.6 L (94-97) % Hemoglobin 12.0 L (13.0-17.5) gm/dL Chloride 110 H (98-107) mmol/L Creatinine 0.48 L (0.66-1.25) mg/dL Glucose 114 H (74-99) mg/dL Calcium 8.1 L (8.4-10.2) mg/dL 05/25/24 Range/Units 13:25 RBC 3.44 L (4.30-5.90) m/uL Hgb 11.4 L (13.0-17.5) gm/dL Hct 33.8 L (39.0-53.0) % Plt Count 82 L (150-450) k/uL Lymphocytes # (1.0-4.8) k/uL ABG pO2 (83-108) mmHg ABG HCO3 (21-25) mmol/L ABG Total CO2 (19-24) mmol/L ABG O2 Saturation (94-97) % Hemoglobin (13.0-17.5) gm/dL Chloride (98-107) mmol/L Creatinine (0.66-1.25) mg/dL Glucose (74-99) mg/dL Calcium (8.4-10.2) mg/dL Microbiology - Last 24 Hours (Table) 05/20/24 02:28 Blood Culture - Final Blood Assessment and Plan Assessment: * Altered mental status, unclear cause. Rule out postictal state. Rule out other toxic metabolic causes, rule out encephalitis. * New onset seizure versus convulsive syncope. Unclear cause. * Respiratory failure, on mechanical ventilation * Lactic acidosis * Non-STEMI * CAD * History of liver disease * Chronic low back pain * Hypertension * Hyperlipidemia * Depression Plan: * Patient continues to be severely encephalopathic. No improvement in clinical condition. Today he is on IV Propofol 50mcg/kg/min. * Repeat CT head performed showed no acute intracranial process. * Repeat EEG performed 05/21/2024 was again abnormal due to generalized slowing of moderate to severe degree. No changes compared to the EEG from yesterday. * Initial EEG on 05/20/2024 was abnormal due to background slowing of moderate to severe degree. This suggestive of generalized cerebral dysfunction, as can be seen with toxic metabolic encephalopathy related to diffuse structural brain abnormality. Clinical correlation is recommended. No epileptiform activity was seen. * Empirically continue Keppra 1000 mg IV twice daily. * Ammonia level < 9, B12 175, folate 3.50, blood cultures so far negative. Patient has been started on B12 replacement and folate replacement. * 2D echo revealed normal LV function with EF 60 to 65%. No obvious regional wall motion abnormalities. Normal left atrial size. No valvular abnormalities. * Carotid Doppler revealed less than 50% stenosis of bilateral carotid bifurcations. Antegrade flow in both vertebral arteries. * Initial CT head is normal. May need repeat CT head in 24 to 48 hours. * Cardiology on board for elevated cardiac enzymes. Patient is off Plavix at this time. * Patient had a low-grade temperature. Infectious disease consulted. Patient started on acyclovir and also on Zosyn. Lumbar puncture was considered to rule out encephalitis. However patient used to be on Plavix. He took the l ast dose on 05/19/2024, but he was throwing up all day, therefore family not sure if was absorbed, or he threw it up. However for sure he received the dose on 05/18/2024. Lumbar puncture scheduled for tomorrow. * Other medical management as per IM and other specialties on board. The plan is discussed with his nurse. Time with Patient: Less than 30
[2024-05-25 18:59] LABS: Glucose,Whole Blood 106 mg/dL (70-110)
[2024-05-25 23:48] LABS: Glucose,Whole Blood 104 mg/dL (70-110)
[2024-05-26 04:42] LABS: Basophils % (A) 0 %; Eosinophils # (A) 0.1 k/uL (0-0.7); Eosinophils % (A) 2 %; HCT 34.8 % (39.0-53.0); HGB 11.6 gm/dL (13.0-17.5); Lymphocytes # (A) 0.4 k/uL (1.0-4.8); Lymphocytes % (A) 9 %; MCH 33.4 pg (25.0-35.0); MCHC 33.3 g/dL (31.0-37.0); MCV 100.1 fL (80.0-100.0); Mean Platelet Volume 8.6; Monocytes # (A) 0.3 k/uL (0-1.0); Monocytes % (A) 6 %; Neutrophils # (A) 4.2 k/uL (1.3-7.7); Neutrophils % (A) 82 %; RBC 3.48 m/uL (4.30-5.90); RDW 13.6 % (11.5-15.5); WBC 5.1 k/uL (3.8-10.6)
[2024-05-26 04:46] LABS: Platelet Count 91 k/uL (150-450)
[2024-05-26 04:51] LABS: African American GFR (CKD) >90 (>60 ml/min/1.73 sqM); Anion Gap 0 mmol/L; Blood Urea Nitrogen 22 mg/dL (9-20); Calcium 8.1 mg/dL (8.4-10.2); Carbon Dioxide 25 mmol/L (22-30); Chloride 111 mmol/L (98-107); Glucose 116 mg/dL (74-99); Non-African American GFR(CKD) >90 (>60 ml/min/1.73 sqM); Potassium 3.8 mmol/L (3.5-5.1); Sodium 136 mmol/L (137-145)
[2024-05-26 05:23] LABS: ABG Base Excess 1.6 mmol/L; ABG HCO3 26 mmol/L (21-25); ABG Oxygen Saturation 99.1 % (94-97); ABG PCO2 39 mmHg (35-45); ABG PH 7.43 (7.35-7.45); ABG PO2 127 mmHg (83-108); ABG TCO2 27 mmol/L (19-24)
[2024-05-26 05:43] LABS: Glucose,Whole Blood 121 mg/dL (70-110)
--- NOTE | 2024-05-26 06:02 | P.PN ---
Subjective Progress Note Date: 05/25/24 HISTORY OF PRESENT ILLNESS: 64-year-old one of my office patient for many years with active medical history of CAD post PCI and stent placement of the RCA back in October 2022, history of chronic clinical hepatitis with early cirrhosis, history of chronic lower back pain with spinal stenosis, hypertension, hyperlipidemia, hyperglycemia, chronic lower back pain, recurrent pancreatitis, chronic history of neuropathy of the lower extremity, chronic kidney disease stage III, with history of BPH mild anxiety and edema who brought to the emergency department by EMS that patient apparently through the day developed to have severe nausea vomiting with recurrent abdominal pain according family heard stump with falling found him shaking and having seizure-like activity on the floor EMS were called to the scene when arrived found to have confused and combative they gave him 10 mg of Versed which made him very calm had no further seizure activity at the time. At the time of his arrival to the emergency department patient was very confused combative hypoxic and having worsening symptoms and that being in intubated and kept on mechanical ventilation and on sedation. At that point in the ER ended up doing CT of the brain and C-spine did not show any acute intracranial hemorr brando or abnormality and no midline shift, C-spine failed to show any fracture or subluxation. CT of the abdomen and pelvis did not show any obvious saddle pulmonary embolism no acute intracranial abdominal process was seen slight some abdominal wall thickening in the sigmoid colon most likely from chronic diverticulitis and incidental 10 mm of nonobstructive calculus within the mid dilated right renal pelvis. Patient was sedated on mechanical ventilation In the emergency department was giving cefepime UA was positive at the time drug screen was positive for opiates benzodiazepine and marijuana which patient taking medication and admitted taking marijuana every so often. Risk [facility] and given duration patient be admitted to the ICU. 05/21/2024: Patient still intubated on mechanical ventilation in the ICU he is extremely agitated when trying to back off sedation, still with all the collected information from family seems like he had seizure EEG did not show any seizure activity at this point. With his low-grade temperature and not finding any source of infection or reason for his symptoms neurology is leaning toward having to do lumbar puncture for collection of spinal fluid for further analysis problem the patient had last dose of antiplatelet agent within the last 4 days which will be a close this time to be able to do LP will be around Friday next week. Meanwhile further recommendation by infectious disease for other infection specially infectious process like Lyme or other pathogen might be the source stomach not been found out. Echocardiogram was performed showed good ejection fraction with no valvular heart disease. Antibiotic was changed by infectious disease to Zosyn from cefepime. Laboratory value with white blood cell is down to 8000 no anemia urine test still showing some RBC more than WBC with large amount of blood and trace bacteria. Chest x-ray shows no acute cardiopulmonary process. 05/22/2024: Patient remain on mechanical ventilation, herpes antibody type I positive patient was started on acyclovir, antibiotic was switched to Zosyn as well. Repeat chest x-ray today still negative with no sign of aspiration or infection. Data been collected on Lyme and West Nile. Neurology still believe having to do LP will be valuable data is not marciano be done till Friday based on the last day he had antiplatelet agent which will make it safer by Friday only. Further management and finding including no fever at this point blood pressure and vitals are stable the patient is still not weanable of mechanical ventilation he is agitated when back off on sedation. 05/23/2024: Still sedated on mechanical ventilation, labs from this morning with white blood cell 6.4 normal kidney function, blood sugar running in the low 100s. Chest x-ray has been showing slight haziness in the right lower lobe. Apparently reviewed from infectious disease believe this is still can be an infectious process combination of either diverticulitis or aspiration pneumonia or a combination of both also the necessity to do lumbar puncture in last day of Plavix was 05/20/2024 waiting at least till 05/25/2024 which will be on Friday. 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 Still planning to do LP but not till Friday. Patient backing off on sedation he become quite agitated and not comfortable start thrashing everything around him making it not easy so far he still on mechanical ventilation. 05/24/2024: Patient remains on mechanical ventilation, hemodynamically still stable with pulse oximetry and FiO2 of 35 percentile still at 98%, laboratory value does not show any major abnormality, chest x-ray still shows mostly clear lung with slight haziness on the right basal mostly similar to obesity with slight aspiration. Currently no change on blood panel done for patient still on Zosyn and acyclovir waiting for aspiration pneumonia and diverticulitis his testing for West Nile still pending, Lyme test is not back yet he has herpes simplex 1 serology positive and treated with acyclovir. Patient be going for lumbar puncture tomorrow the earliest to allow enough time while on antiplatelet agent not to have any major impact with the test itself. At this stage and again patient should have probably feeding tube should start enteral feeding not wait any longer continue management for seizure as well as recommended by neurology. 05/25/2024: Patient still on mechanical ventilation still sedated not been able to wean him off vent currently, lumbar puncture is planned today the earliest. Procalcitonin apparently has been low at 0.12 and pulmonary are think about quitting Zosyn he will be kept on acyclovir as of now. Lyme antibody came back negative. He is FiO2 is with use down to 30% but yesterday successful, lab from today showing white blood cell of 5.6 hemoglobin 12.1 hematocrit 36.6 still have mild thrombocytopenia with 89 platelet count, blood sugar still in the low 100. Chest x-ray repeat does not show any sign of infiltrate or haziness the fact bronchial shadow looks even negative for bronchitis. Troponin was mildly elevated but patient does not have any sign of reduced ejection fraction to indicate acute SC, apparently cardiology decided to discontinue Plavix permanently and to start him on aspirin following his lumbar puncture still holding off on any anticoagulation specially heparin and Lovenox based on his HIT. REVIEW OF SYSTEMS: CONSTITUTIONAL: Sedated on mechanical ventilation. EYES: No icterus sclerae, no conjunctivitis. EARS, NOSE, MOUTH, THROAT, and FACE: No sore throat, lymphadenopathy, carotid bruits or deformity. ET tube. RESPIRATORY: No SOB cough or wheezes. CARDIOVASCULAR: Intubated. No obvious complaint of chest pain or angina at times despite elevated troponin. GASTROINTESTINAL: Soft positive bowel sounds slight discomfort in the left lower quadrant area and right upper quadrant area as well no rebound or rigidity. GENITOURINARY: Negative for Hematuria or UTI, no kidney stones. INTEGUMENT/BREAST: Negative for any muscular injury with mild osteoarthritis.. HEMATOLOGIC/LYMPHATIC: Negative for bleed or purpura. MUSCULOSKELTAL: Negative for Myalgia or arthralgia. NEURLOGICAL: Sedated anything in ventilation. BEHAVIORAL/PSYCH: Negative. ENDOCRINE: Negative. PHYSICAL EXAMINATION: General Appearance: Sedated on mechanical ventilation with a ET tube in place. Neck HEENT: Supple, no lymphadenopathy, no thyroid enlargement, no carotid bruits. Lungs: Decreased breath sound bilaterally fine rhonchi mild expiratory wheezes. Chest Wall: Decreased expansion with deep inspiration no tenderness and no deformity was found on exam, no costochondral pain or discomfort. Heart: Regular rate and rhythm, S1, S2 normal, no murmur, rub or gallop. Back: Symmetric, no curvature, ROM normal, no CVA tenderness. Abdomen: Soft with slight distention and slight left lower quadrant and mid abdominal region discomfort with no rebound or rigidity. Extremities: Extremities normal, atraumatic, no cyanosis or edema. Pulses: 2+ and symmetric. Skin: Skin color, texture, tugor normal, no rashes or lesions. Neurologic: Sedated on mechanical ventilation. ASSESSMENT AND PLAN: _Most likely sepsis: Source is not clear at this point could be diverticulitis, aspiration pneumonia can be hepatic encephalitis patient is currently being covered for it eventually will be able to do lumbar puncture to find out if have any central nervous system with infection. Procalcitonin was negative pulmonary are stopping Zosyn at this point but will continue acyclovir till after lumbar puncture result. _Altered mental status: Most likely secondary to seizure, could be encephalopathy mostly metabolic will try to correct underlying disease also patient might be having manage STEMI might be a cause of the problem. Still no major finding at this point. _Seizure like activity: Negative EEG still on Keppra. _Respiratory failure: Remain on mechanical ventilation with assisted control and FiO2 is down to 30 percentile, still on sedation unable to wean him off. _Non-STEMI: Most likely type II SC secondary to acute injury no sign of real SC and well-preserved ejection fraction on echo. _Thrombocytopenia possibly due to sepsis rule out HIT platelet count up to 89,000 this point and still climbing. _History of atherosclerotic heart disease: Post angioplasty and stent placement, cardiology decided to take him off Plavix permanently and just put him back on aspirin after lumbar puncture today.. _Severe GERD: Remain on proton pump inhibitor. _Nutrition: Enteral feeding should start probably NG tube start feeding him as early as today. 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 _Chronic lower back pain post surgical intervention: Remain on pain meds and muscle relaxer at this point. _Gastroparesis: Has been on Protonix and Reglan in the past with good follow-up. _Hypertension: Remain on metoprolol titrate 25 mg twice a day his blood pressure still high will add smaller dose of ARB. _Hyperlipidemia: Remain on Lipitor 40 mg a day. _Chronic depression anxiety attacks has been on escitalopram 20 and alprazolam 0.5 mg twice a day. Discussion: Lumbar puncture given today will be waiting for the result again pulmonary still trying to wean patient off mechanical ventilation safely without having to affect him he is continue to be quite agitated every time this anderson ppened. Objective - Vital Signs Vital signs: Vital Signs Temp 98.2 F 05/25/24 04:00 Pulse 91 05/25/24 04:00 Resp 21 05/25/24 04:00 BP 131/82 05/25/24 04:00 Pulse Ox 95 05/25/24 04:00 FiO2 30 05/25/24 04:00 Intake & Output 05/24/24 05/24/24 05/25/24 06:59 18:59 06:59 Intake Total 2033.081 2871.198 8907.520 Output Total 1999 2215 1375 Balance 33.081 -385.398 92.520 Weight 86.2 kg 86.2 kg 96.2 kg Intake: IV 858 936 780 Sodium Chloride 0.9% 1, 825 900 750 000 ml @ 75 mls/hr IV . [id number] [facility] Rx#:[id number] pressure bag 33 36 30 Intake, IV Titration 612.081 850.602 183.520 Amount Acyclovir Sodium 850 mg 250 500 In Sodium Chloride 0.9% 250 ml @ 267 mls/hr IVPB Q8HR [facility] Rx#:[id number] Piperacillin-Tazobactam 3 100 100 .375 gm In Sodium Chloride 0.9% 100 ml @ 25 mls/hr IVPB Q8HR [facility] Rx# :[id number] propofoL 1,000 mg In 262.081 250.602 183.520 Empty Bag 1 bag @ 15 MCG/ KG/MIN 7.83 mls/hr IV . [id number] [facility] Rx#:[id number] Tube Feeding 473 43 414 Other 90 90 Output: Urine 1999 2215 1375 Other: Voiding Method Indwelling Catheter Indwelling Catheter Indwelling Catheter ABP, PAP, CO, CI - Last Documented Arterial Blood Pressure 137/64 - Labs CBC & Chem 7: 05/26/24 04:20 05/26/24 04:20 Labs: Abnormal Lab Results - Last 24 Hours (Table) 05/24/24 05/25/24 Range/Units 04:00 05:00 RBC 3.69 L (4.30-5.90) m/uL Hgb 12.1 L (13.0-17.5) gm/dL Hct 36.6 L (39.0-53.0) % Plt Count 72 L D 89 L (150-450) k/uL Lymphocytes # 0.5 L (1.0-4.8) k/uL
--- NOTE | 2024-05-26 10:15 | XR ---
EXAMINATION TYPE: XR chest 1V portable DATE OF EXAM: 05/26/2024 Comparison: 05/25/2024 Clinical History: 64-year-old male mechanical ventilation Findings: ET and NG tubes are satisfactory. Heart normal size. Mild interstitial prominence is unchanged. No co nsolidation or pleural effusion. Impression: Similar mild interstitial prominence which may be chronic for the patient. Otherwise, no acute change . [facility], , 05/26/2024 10:12 AM
[2024-05-26] MEDS: POTASSIUM BICARB-CITRIC ACID 25 MEQ TABLET.EFF PO SCH (10:43)
[2024-05-26] MEDS: POTASSIUM BICARBONATE/CIT AC 20 MEQ TABLET.EFF NG-TUBE SCH (10:44)
--- NOTE | 2024-05-26 11:06 | P.PN ---
Subjective Progress Note Date: 05/26/24 Principal diagnosis: Respiratory failure. Patient is a 64-year-old male with past medical history significant for coronary artery disease with previous PCI/stent, syncope, hypertension, hyperlipidemia, among other things. Patient is [facility], unable to provide any information for HPI. Patient presented emergency department early this morning. Apparently, family heard the patient fall from a different room. They found him on the floor shaking with reported seizure-like activity. When EMS arrived patient was confused and combative. They did give 10 mg of IM Versed. On arrival to the emergency department, patient was intubated by the ER provider. He is underwent an extensive workup. CT of the brain and C-spine did not show any acute intracranial hemorrhage, no midline shift or mass effect. No C-spine fracture or subluxation. Apparently, the patient was having nausea and vomiting and fever. A CT of the chest abdomen and pelvis did not show obvious saddle PE. No acute intra-abdominal process. There was some abdominal wall thickening of the sigmoid colon, likely from chronic diverticulitis. Incidentally, a 10 mm nonobstructive calculus seen in the mildly dilated right renal pelvis. Patient remains in the emergency department on my evaluation, in trauma bay 2. Remains intubated mechanical ventilator with current ventilator settings including assist-control, respiratory rate 18, tidal volume 450, FiO2 50%, PEEP of 5. Postintubation ABG includes a PaO2 of greater than 420, pCO2 of 40, and pH of 7.3. This was done on a FiO2 of 100%. He is on propofol currently infusing at 25 mcg/kg/min. Synchronous with current ventilator settings. Fentanyl is also infusing at 2 mcg/kg/h. Heparin infusing per protocol. Patient did have some elevated troponins on presentation of the 0.07 and 0.09 respectively. EKG: Sinus tachycardia, rate 101 bpm, no obvious acute ischemic changes. Body temperature now hypothermic, currently 36 C with Porsha hugger on, heart rate 83 bpm, blood pressure normotensive at 105/71 mmHg, SpO2 98%. CBC: WBC count 13.5, hemoglobin 17, hematocrit 52.7, platelets 123. CMP: Sodium 137, potassium 4.2, chloride 105, serum bicarb 12, BUN 28, creatinine 0.8, glucose 144. Lactic elevated at 9.5. LFTs unremarkable. Patient did have a fever of 100 degrees on arrival to the emergency department. Was given dose of cefepime. UA not very remarkable for infection, rare bacteria. Urine drug screen positive for opiates, benzodiazepines, marijuana. Serum alcohol level less than 10. Patient was loaded with Keppra in the emergency department. No further seizure-like activity noted. Patient was evaluated today on 05/21/2024. Remains in the ICU, intubated and mechanically ventilated, patient remains on antibiotics remains on seizure medications he is on assist-control rate of 18 tidal volume 450 FiO2 40% and PEEP of 5 ABG showed a pO2 of 120 pCO2 36 pH of 7.42 hands his FiO2 was cut down to 35%. Patient became extremely agitated last night and early this morning, and he was not mentally appropriate, hence required more sedation to be able to ventilating properly we had to increase his Versed to 5 mg/h he remains on propofol at 45 mcg/kg/min. Patient also spiked a temp yesterday, and neurology is likely to recommend lumbar puncture on this patient today. His EEG showed mostly slowing activity but no seizures. Patient is maintained on Keppra his carotid studies are negative his echocardiogram showed good LV function with ejection fraction of 60 to 65%, no significant valvular heart disease. I was planning to consider weaning on this patient today, however with his present condition this is placed on hold. On admission patient was placed on Unasyn for possible aspiration pneumonia, chest x-ray today is reassuring. Minimal atelectasis no clear-cut evidence of pneumonia. However considering his intermittent fevers, will continue on Unasyn for now. And again the patient may require lumbar puncture todayWBC count today is 8 hemoglobin is 13.3 electrolytes are normal potassium is a bit low at 3.5, Today on 05/22/2024, remains in the ICU, intubated and mechanically ventilated. No lumbar puncture was done for some reason, however the patient antibiotics were adjusted seen by infectious disease and now he is covered with acyclovir and Zosyn. He was on Unasyn initially. Patient remains on mechanical ventilation, assist-control rate of 18 tidal volume 450 FiO2 35% and PEEP of 5 ABG showed a pO2 of 102 pCO2 34 pH of 7.46. Remains on Versed at 6 mg/h propofol at 50 mcg/kg/min IV fluid 75 cc/h of 0.9 normal saline. Patient is now off Plavix, apparently the lumbar puncture will not be done until he is off Plavix for 5 days. Chest x-ray showed minimal basilar atelectasis especially of the left base no clear-cut evidence of pneumonia. EEG showed generalized slowing of moderate to severe degree. Suggestive of generalized cerebral dysfunction. No definite seizure focus. CBC is relatively normal basic metabolic profile is relatively normal renal profile is normal Patient was evaluated today on 05/23/2024, remains in the ICU, intubated and mechanically ventilated. On assist-control rate of 18 tidal volume 450 FiO2 35% and PEEP of 5 ABG showed a pO2 of 95 pCO2 38 pH of 7.43, hence did not recommend any change in ventilator settings. Patient remains encephalopathic, when he went off propofol for a brief period of time today, patient remained unresponsive to any stimuli, gets agitated easily, no purposeful movement, patient has upward gaze deviation of his eyes, remains on propofol at 30 and he is on enteral feeding in the form of vital AF 1.243/43 at 75 cc/h. His procalcitonin level is normal at 0.12 patient was seen by infectious disease and seen by neurology, and the plan is to have lumbar puncture on this patient tomorrow. Chest x-ray showed mostly retrocardiac infiltrate and small left pleural effusion WBC 6.4 hemoglobin 12.1 basic metabolic profile is normal renal profile is normal Progress note dated May 24, 2024. 64-year-old male who was admitted back on May 20. He apparently had a fall, had evidence of fever, and elevated troponins. The patient came to the intensive care unit on May 20, and was intubated on May 20. Since that time, he has been evaluated for possible encephalopathy. The lumbar puncture is planned for tomorrow. The patient remains on the mechanical ventilator. He is on volume assist-control, rate 18, tidal volume 450, FiO2 35% to be dropped down to 30%, and PEEP of 5. Blood gases show pO2 of 128, pCO2 40, pH of 7.43. His procalcitonin level was 0.12. Zosyn is discontinued. He continues on propofol at 40 mcg/kg/min, saline at 75 cc an hour, and vital AF at 43 cc an hour, which is goal. In addition to Zosyn, he is on acyclovir. We will attempt a daily interruption of sedation. Current labs include a white count 5.4, hemoglobin 11.8, macro 36.7, and platelet count of 72,000. Sodium 136, potassium 3.9, chlorides 109, CO2 24, BUN 18, creatinine 0.51. Glucose is 120. Calcium is 8.1. Blood and sputum sampling are negative. Chest x-ray shows some improved patchy bibasilar opacities. Progress note dated May 25, 2024. 64-year-old male admitted back on May 20. The patient remains in the ICU, in room 258. The patient remains on mechanical ventilator. Ventilator settings include volume assist-control, rate 18, tidal volume 450, FiO2 30%, PEEP of 5. Blood gases show pO2 of 62, pCO2 38, pH is 7.45. The patient remains on propofol at 50 mcg/kg/min, saline at 75 cc an hour, and vital AF at 46 cc an hour, which is goal. The patient had an uneventful night. He did relatively well yesterday on his daily interruption of sedation and spontaneous breathing trial, although he had copious secretions. White count 5.6, hemoglobin 12.1, hematocrit 36.6, platelet count 89,000. Sodium is 137, potassium 4.1, chlorides 110, CO2 25, BUN 19, creatinine 0.48. Calcium is 8.1. Glucose is 103. Microbiologic studies are thus far negative. Chest x-ray shows improved aeration of both lung veliz. Progress note dated May 26, 2024. 64-year-old male admitted back on May 20, remains in the intensive care unit, room 258. The patient remains on mechanical ventilator. He is on volume assist-control, rate 18, tidal volume 450, FiO2 30%, PEEP of 5. Blood gases show pO2 of 127, pCO2 39, pH is 7.43. The patient is getting saline at 75 cc an hour, and vital tube feedings at 36 cc an hour, which is goal. White count is 5.1, hemoglobin 11.6, hematocrit 34.8, and platelet count 91,000. Sodium 136, potassium 3.8, chlorides 111, CO2 25, BUN 22, and creatinine 0.52. Chest x-ray shows some mild interstitial prominence. The chest x-ray is largely unchanged. Objective - Vital Signs Vital signs: Vital Signs Temp 98.8 F 05/26/24 08:00 Pulse 90 05/26/24 09:00 Resp 17 05/26/24 09:00 BP 150/88 05/26/24 09:00 Pulse Ox 98 05/26/24 09:00 FiO2 30 05/26/24 09:44 Intake & Output 05/25/24 05/26/24 05/26/24 18:59 06:59 18:59 Intake Total 2117.163 1935.905 437.231 Output Total 1465 1450 290 Balance 652.163 485.905 147.231 Weight 87.1 kg Intake: IV 1186 936 234 Acyclovir Sodium 850 mg 250 In Sodium Chloride 0.9% 250 ml @ 267 mls/hr IVPB Q8HR [facility] Rx#:[id number] Sodium Chloride 0.9% 1, 900 900 225 000 ml @ 75 mls/hr IV . [id number] [facility] Rx#:[id number] pressure bag 36 36 9 Intake, IV Titration 243.163 357.905 35.231 Amount propofoL 1,000 mg In 243.163 357.905 35.231 Empty Bag 1 bag @ 15 MCG/ KG/MIN 7.83 mls/hr IV . [id number] [facility] Rx#:[id number] Oral 46 Tube Feeding 552 552 138 Other 90 90 30 Output: Urine 1465 1450 290 Other: Voiding Method Indwelling Catheter Indwelling Catheter ABP, PAP, CO, CI - Last Documented Arterial Blood Pressure 175/69 - Exam No acute distress, sedated, with an orally placed endotracheal tube. HEENT examination is grossly unremarkable. Mucous membranes are moist. No oral lesions. Neck supple. Full range of motion. No adenopathy thyromegaly or neck vein distention. Cardiovascular examination reveals regular rhythm rate. S1-S2 normal. No S3 or S4. No discernible murmur noted. Lungs reveal mild scattered rhonchi. No wheezes. No crackles. Breath sounds equal. Abdomen soft bowel sounds are heard. No masses or tenderness. Extremities are intact. No cyanosis clubbing or edema. Skin is without rash or lesion. Neurologic examination cannot be fully evaluated at this time. - Labs CBC & Chem 7: 05/26/24 04:20 05/26/24 04:20 Labs: Abnormal Lab Results - Last 24 Hours (Table) 05/25/24 05/26/2424 Range/Units 13:25 04:20 04:20 RBC 3.44 L 3.48 L (4.30-5.90) m/uL Hgb 11.4 L 11.6 L (13.0-17.5) gm/dL Hct 33.8 L 34.8 L (39.0-53.0) % MCV 100.1 H (80.0-100.0) fL Plt Count 82 L 91 L (150-450) k/uL Lymphocytes # 0.4 L (1.0-4.8) k/uL ABG pO2 (83-108) mmHg ABG HCO3 (21-25) mmol/L ABG Total CO2 (19-24) mmol/L ABG O2 Saturation (94-97) % Hemoglobin (13.0-17.5) gm/dL Sodium 136 L (137-145) mmol/L Chloride 111 H (98-107) mmol/L BUN 22 H (9-20) mg/dL Creatinine 0.52 L (0.66-1.25) mg/dL Glucose 116 H (74-99) mg/dL POC Glucose (mg/dL) (70-110) mg/dL Calcium 8.1 L (8.4-10.2) mg/dL 05/26/24 05/26/24 Range/Units 05:14 05:42 RBC (4.30-5.90) m/uL Hgb (13.0-17.5) gm/dL Hct (39.0-53.0) % MCV (80.0-100.0) fL Plt Count (150-450) k/uL Lymphocytes # (1.0-4.8) k/uL ABG pO2 127 H (83-108) mmHg ABG HCO3 26 H (21-25) mmol/L ABG Total CO2 27 H (19-24) mmol/L ABG O2 Saturation 99.1 H (94-97) % Hemoglobin 12.2 L (13.0-17.5) gm/dL Sodium (137-145) mmol/L Chloride (98-107) mmol/L BUN (9-20) mg/dL Creatinine (0.66-1.25) mg/dL Glucose (74-99) mg/dL POC Glucose (mg/dL) 121 H (70-110) mg/dL Calcium (8.4-10.2) mg/dL Microbiology - Last 24 Hours (Table) 05/20/24 02:28 Blood Culture - Final Blood Assessment and Plan Assessment: Acute mental status changes, of unclear etiology. Respiratory failure requiring intubation/mechanical ventilation, beginning on May 20, 2024. Metabolic encephalopathy. 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 Acute sepsis, source not clear. Acute syncopal episode, versus seizure. History of CAD with previous PCI/stent. Hyperlipidemia. Benign essential hypertension. History of marijuana use. Plan: Plan dated May 24, 2024. The patient was admitted on 20 May. The patient was intubated on the same day. The patient had acute mental status changes, and is remains on mechanical ventilator. The FiO2 is reduced from 35%, down to 30%. Will discontinue Zosyn as the procalcitonin level is 0.12. The patient should continue on acyclovir. We will wake up the patient, and attempt a spontaneous breathing trial. He may not be ready. Additional recommendations and suggestions are forthcoming. Labs, x-rays, and medications are reviewed. We will continue nutritional support, and GI/DVT prophylaxis. LP is planned for tomorrow. Plan dated May 25, 2024. The patient is seen today in room 258. We will attempt another daily interruption of sedation, possible spontaneous breathing trial. The patient is scheduled to have a lumbar puncture today. Antibiotics in the form of Zosyn were discontinued yesterday, because his procalcitonin level was normal. He continues on acyclovir for presumed viral encephalopathy. Labs, x-rays, and all medications are reviewed. We will continue to follow make recommendations along the way. Prognosis is certainly guarded. The patient remains on the ventilator. Yesterday, he did well on a spontaneous breathing trial, save for copious secretions. Plan dated May 26, 2024. We will attempt another interruption of sedation, and spontaneous breathing trial. The patient is having significant secretions. Labs, x-rays, medications are reviewed. Lumbar puncture has not yet been done, because the platelet count is below 100,000. The patient continues on acyclovir. Cultures are thus far negative. We will continue to follow the patient, make recommendations along the way. Prognosis is guarded. Time with Patient: Greater than 30
[2024-05-26 11:49] LABS: Glucose,Whole Blood 103 mg/dL (70-110)
--- NOTE | 2024-05-26 12:13 | P.PN ---
Subjective Progress Note Date: 05/25/24 Principal diagnosis: Reason for follow-up is fever question of encephalitis Patient is a 64-year-old male with a past medical history significant for coronary disease reflux hypertension [place], patient was brought into the hospital with an episode of nausea vomiting agitation and seizure-like activity he did have low-grade fever got elevated to protect his airways. On today's evaluation that is 05/25/2024, the patient did have a low-grade fever of 99.8 last evening hide the patient is afebrile since then patient FiO2 is currently stable at 30% no significant purulent secretion through the ET no diarrhea and the changes reported by the nursing staff. Patient white count is 5.7 platelet count is 82 but trending up creatinine 0.48 Objective - Vital Signs Vital signs: Vital Signs Temp 99.2 F 05/25/24 08:00 Pulse 90 05/25/24 11:00 Resp 23 05/25/24 11:00 BP 129/78 05/25/24 11:00 Pulse Ox 92 L 05/25/24 11:00 FiO2 30 05/25/24 12:27 Intake & Output 05/24/24 05/25/24 05/25/24 18:59 06:59 18:59 Intake Total 7943.993 1528.520 1021.583 Output Total 2215 1575 405 Balance -385.398 140.520 616.583 Weight 86.2 kg 96.2 kg Intake: IV 936 936 640 Acyclovir Sodium 850 mg 250 In Sodium Chloride 0.9% 250 ml @ 267 mls/hr IVPB Q8HR [facility] Rx#:[id number] Sodium Chloride 0.9% 1, 900 900 375 000 ml @ 75 mls/hr IV . [id number] [facility] Rx#:[id number] pressure bag 36 36 15 Intake, IV Titration 850.602 183.520 121.583 Amount Acyclovir Sodium 850 mg 500 In Sodium Chloride 0.9% 250 ml @ 267 mls/hr IVPB Q8HR [facility] Rx#:[id number] Piperacillin-Tazobactam 3 100 .375 gm In Sodium Chloride 0.9% 100 ml @ 25 mls/hr IVPB Q8HR [facility] Rx# :[id number] propofoL 1,000 mg In 250.602 183.520 121.583 Empty Bag 1 bag @ 15 MCG/ KG/MIN 7.83 mls/hr IV . [id number] [facility] Rx#:[id number] Tube Feeding 43 506 230 Other 90 30 Output: Urine 2215 1575 405 Other: Voiding Method Indwelling Catheter Indwelling Catheter Indwelling Catheter ABP, PAP, CO, CI - Last Documented Arterial Blood Pressure 111/51 - Exam GENERAL DESCRIPTION: An elderly male intubated on the vent RESPIRATORY SYSTEM: Unlabored breathing , decreased breath sounds at bases HEART: S1 S2 regular rate and rhythm , ABDOMEN: Soft , no tenderness EXTREMITIES: No edema feet - Labs CBC & Chem 7: 05/26/24 04:20 05/26/24 04:20 Labs: Abnormal Lab Results - Last 24 Hours (Table) 05/24/24 05/25/24 05/25/24 Range/Units 04:00 05:00 05:00 RBC 3.69 L (4.30-5.90) m/uL Hgb 12.1 L (13.0-17.5) gm/dL Hct 36.6 L (39.0-53.0) % Plt Count 72 L D 89 L (150-450) k/uL Lymphocytes # 0.5 L (1.0-4.8) k/uL ABG pO2 (83-108) mmHg ABG HCO3 (21-25) mmol/L ABG Total CO2 (19-24) mmol/L ABG O2 Saturation (94-97) % Hemoglobin (13.0-17.5) gm/dL Chloride 110 H (98-107) mmol/L Creatinine 0.48 L (0.66-1.25) mg/dL Glucose 114 H (74-99) mg/dL Calcium 8.1 L (8.4-10.2) mg/dL 05/25/24 Range/Units 06:16 RBC (4.30-5.90) m/uL Hgb (13.0-17.5) gm/dL Hct (39.0-53.0) % Plt Count (150-450) k/uL Lymphocytes # (1.0-4.8) k/uL ABG pO2 62 L (83-108) mmHg ABG HCO3 26 H (21-25) mmol/L ABG Total CO2 27 H (19-24) mmol/L ABG O2 Saturation 92.6 L (94-97) % Hemoglobin 12.0 L (13.0-17.5) gm/dL Chloride (98-107) mmol/L Creatinine (0.66-1.25) mg/dL Glucose (74-99) mg/dL Calcium (8.4-10.2) mg/dL Microbiology - Last 24 Hours (Table) 05/20/24 02:28 Blood Culture - Final Blood Assessment and Plan (1) Acute encephalopathy Current Visit: Yes Status: Acute Code(s): G93.40 - ENCEPHALOPATHY, UNSPECIFIED SNOMED Code(s): 44952482 (2) Fever Current Visit: Yes Status: Acute Code(s): R50.9 - FEVER, UNSPECIFIED SNOMED Code(s): 069301833 Plan: 1patient presented to hospital with rigors and chills mental status changes and apparently the patient did have significant vomiting the day before presentation to the hospital and did have extensive workup no significant finding except diverticulitis reported by the radiologist on the CT however keeping in mind significant mental status changes agitation combativeness and fever will point was possible encephalitis with a question of possible herpes versus West Nile in the differential, and will also cover for possible component of aspiration pneumonitis/diverticulitis 2-LP has been discussed with the neurologist however the patient has been on Plavix which was discontinued 05/20/2024 hence we will need to wait for at least 5 days before LP could be completed, hopefully can be completed tomorrow as per discussion with the nursing staff 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 please excuse any grammatical, word or spelling errors. Time with Patient: Less than 30
--- NOTE | 2024-05-26 12:14 | P.PN ---
Subjective Progress Note Date: 05/26/24 Principal diagnosis: Reason for follow-up is fever question of encephalitis Patient is a 64-year-old male with a past medical history significant for coronary disease reflux hypertension [place], patient was brought into the hospital with an episode of nausea vomiting agitation and seizure-like activity he did have low-grade fever got elevated to protect his airways. On today's evaluation that is 05/26/2024, Patient is afebrile patient is currently on ventilator FiO2 stable at 30% no significant purulent secretion through the ET, patient is hemodynamic stable not requiring pressor support no diarrhea or any other changes reported by the nursing staff. Patient white count is 5.1 platelet count is up to 91 creatinine is 0.52 Objective - Vital Signs Vital signs: Vital Signs Temp 98.8 F 05/26/24 08:00 Pulse 92 05/26/24 12:00 Resp 24 05/26/24 12:00 BP 150/88 05/26/24 11:00 Pulse Ox 97 05/26/24 12:00 FiO2 30 05/26/24 12:00 Intake & Output 05/25/24 05/26/24 05/26/24 18:59 06:59 18:59 Intake Total 2117.163 7194.705 1888.231 Output Total 1465 1450 640 Balance 652.163 485.905 418.231 Weight 87.1 kg Intake: IV 1186 936 718 Acyclovir Sodium 850 mg 250 250 In Sodium Chloride 0.9% 250 ml @ 267 mls/hr IVPB Q8HR [facility] Rx#:[id number] Sodium Chloride 0.9% 1, 900 900 450 000 ml @ 75 mls/hr IV . [id number] [facility] Rx#:[id number] pressure bag 36 36 18 Intake, IV Titration 243.163 357.905 35.231 Amount propofoL 1,000 mg In 243.163 357.905 35.231 Empty Bag 1 bag @ 15 MCG/ KG/MIN 7.83 mls/hr IV . [id number] [facility] Rx#:[id number] Oral 46 Tube Feeding 552 552 275 Other 90 90 30 Output: Urine 1465 1450 640 Other: Voiding Method Indwelling Catheter Indwelling Catheter ABP, PAP, CO, CI - Last Documented Arterial Blood Pressure 174/71 - Exam GENERAL DESCRIPTION: An elderly male intubated on the vent RESPIRATORY SYSTEM: Unlabored breathing , decreased breath sounds at bases HEART: S1 S2 regular rate and rhythm , ABDOMEN: Soft , no tenderness EXTREMITIES: No edema feet - Labs CBC & Chem 7: 05/26/24 04:20 05/26/24 04:20 Labs: Abnormal Lab Results - Last 24 Hours (Table) 05/25/24 05/26/24 05/26/24 Range/Units 13:25 04:20 04:20 RBC 3.44 L 3.48 L (4.30-5.90) m/uL Hgb 11.4 L 11.6 L (13.0-17.5) gm/dL Hct 33.8 L 34.8 L (39.0-53.0) % MCV 100.1 H (80.0-100.0) fL Plt Count 82 L 91 L (150-450) k/uL Lymphocytes # 0.4 L (1.0-4.8) k/uL ABG pO2 (83-108) mmHg ABG HCO3 (21-25) mmol/L ABG Total CO2 (19-24) mmol/L ABG O2 Saturation (94-97) % Hemoglobin (13.0-17.5) gm/dL Sodium 136 L (137-145) mmol/L Chloride 111 H (98-107) mmol/L BUN 22 H (9-20) mg/dL Creatinine 0.52 L (0.66-1.25) mg/dL Glucose 116 H (74-99) mg/dL POC Glucose (mg/dL) (70-110) mg/dL Calcium 8.1 L (8.4-10.2) mg/dL 05/26/24 05/26/24 Range/Units 05:14 05:42 RBC (4.30-5.90) m/uL Hgb (13.0-17.5) gm/dL Hct (39.0-53.0) % MCV (80.0-100.0) fL Plt Count (150-450) k/uL Lymphocytes # (1.0-4.8) k/uL ABG pO2 127 H (83-108) mmHg ABG HCO3 26 H (21-25) mmol/L ABG Total CO2 27 H (19-24) mmol/L ABG O2 Saturation 99.1 H (94-97) % Hemoglobin 12.2 L (13.0-17.5) gm/dL Sodium (137-145) mmol/L Chloride (98-107) mmol/L BUN (9-20) mg/dL Creatinine (0.66-1.25) mg/dL Glucose (74-99) mg/dL POC Glucose (mg/dL) 121 H (70-110) mg/dL Calcium (8.4-10.2) mg/dL Microbiology - Last 24 Hours (Table) 05/20/24 02:28 Blood Culture - Final Blood Assessment and Plan (1) Acute encephalopathy Current Visit: Yes Status: Acute Code(s): G93.40 - ENCEPHALOPATHY, UNSPECIFIED SNOMED Code(s): 67767762 (2) Fever Current Visit: Yes Status: Acute Code(s): R50.9 - FEVER, UNSPECIFIED S NOMED Code(s): 762720335 Plan: 1patient presented to hospital with rigors and chills mental status changes and apparently the patient did have significant vomiting the day before presentation to the hospital and did have extensive workup no significant finding except diverticulitis reported by the radiologist on the CT however keeping in mind significant mental status changes agitation combativeness and fever will point was possible encephalitis with a question of possible herpes versus West Nile in the differential, and will also cover for possible component of aspiration pneumonitis/diverticulitis 2-LP has been discussed with the neurologist however the patient has been on Plavix which was discontinued 05/20/2024 hence we will need to wait for at least 5 days before LP could be completed, hopefully can be completed tomorrow as per discussion with the nursing staff 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 please excuse any grammatical, word or spelling errors. Time with Patient: Less than 30
--- NOTE | 2024-05-26 13:56 | P.PN ---
Subjective Progress Note Date: 05/26/24 I am following up with the patient and according to the nurse he is about the same. He continues to be intubated on a ventilator. It seems the patient has thrombocytopenia so the pain specialist does not feel comfortable performing lumbar puncture at this time. Objective - Vital Signs Vital signs: Vital Signs Temp 98.8 F 05/26/24 08:00 Pulse 91 05/26/24 13:00 Resp 19 05/26/24 13:00 BP 150/88 05/26/24 11:00 Pulse Ox 97 05/26/24 13:00 FiO2 30 05/26/24 13:00 Intake & Output 05/25/24 05/26/24 05/26/24 18:59 06:59 18:59 Intake Total 2117.163 6869.876 6095.231 Output Total 1465 1450 1040 Balance 652.163 485.905 203.231 Weight 87.1 kg Intake: IV 1186 936 796 Acyclovir Sodium 850 mg 250 250 In Sodium Chloride 0.9% 250 ml @ 267 mls/hr IVPB Q8HR [facility] Rx#:[id number] Sodium Chloride 0.9% 1, 900 900 525 000 ml @ 75 mls/hr IV . [id number] [facility] Rx#:[id number] pressure bag 36 36 21 Intake, IV Titration 243.163 357.905 35.231 Amount propofoL 1,000 mg In 243.163 357.905 35.231 Empty Bag 1 bag @ 15 MCG/ KG/MIN 7.83 mls/hr IV . [id number] [facility] Rx#:[id number] Oral 46 Tube Feeding 552 552 322 Other 90 90 90 Output: Urine 1465 1450 1040 Other: Voiding Method Indwelling Catheter Indwelling Catheter Indwelling Catheter ABP, PAP, CO, CI - Last Documented Arterial Blood Pressure 133/58 - Exam General: Lying in bed and does not appear in acute distress. Lung: Intubated on a ventilator. Neuro: Very Limited. Patient is comatose. No spontaneous moving not verbalizing or following commands. I eventually open the eyes and the pupils are 2 mm bilaterally sluggishly reactive to light. No facial weakness from limitation of examination. - Labs CBC & Chem 7: 05/26/24 04:20 05/26/24 04:20 Labs: Abnormal Lab Results - Last 24 Hours (Table) 05/25/24 05/26/24 05/26/24 Range/Units 13:25 04:20 04:20 RBC 3.44 L 3.48 L (4.30-5.90) m/uL Hgb 11.4 L 11.6 L (13.0-17.5) gm/dL Hct 33.8 L 34.8 L (39.0-53.0) % MCV 100.1 H (80.0-100.0) fL Plt Count 82 L 91 L (150-450) k/uL Lymphocytes # 0.4 L (1.0-4.8) k/uL ABG pO2 (83-108) mmHg ABG HCO3 (21-25) mmol/L ABG Total CO2 (19-24) mmol/L ABG O2 Saturation (94-97) % Hemoglobin (13.0-17.5) gm/dL Sodium 136 L (137-145) mmol/L Chloride 111 H (98-107) mmol/L BUN 22 H (9-20) mg/dL Creatinine 0.52 L (0.66-1.25) mg/dL Glucose 116 H (74-99) mg/dL POC Glucose (mg/dL) (70-110) mg/dL Calcium 8.1 L (8.4-10.2) mg/dL 05/26/24 05/26/24 Range/Units 05:14 05:42 RBC (4.30-5.90) m/uL Hgb (13.0-17.5) gm/dL Hct (39.0-53.0) % MCV (80.0-100.0) fL Plt Count (150-450) k/uL Lymphocytes # (1.0-4.8) k/uL ABG pO2 127 H (83-108) mmHg ABG HCO3 26 H (21-25) mmol/L ABG Total CO2 27 H (19-24) mmol/L ABG O2 Saturation 99.1 H (94-97) % Hemoglobin 12.2 L (13.0-17.5) gm/dL Sodium (137-145) mmol/L Chloride (98-107) mmol/L BUN (9-20) mg/dL Creatinine (0.66-1.25) mg/dL Glucose (74-99) mg/dL POC Glucose (mg/dL) 121 H (70-110) mg/dL Calcium (8.4-10.2) mg/dL Microbiology - Last 24 Hours (Table) 05/20/24 02:28 Blood Culture - Final Blood Assessment and Plan Assessment: * Altered mental status, unclear cause. Rule out other toxic metabolic causes, rule out encephalitis. Patient had 2 routine EEGs which were negative for any seizure or discharges. Also to CT of the head which is unremarkable for any acute process * New onset seizure versus convulsive syncope. Unclear cause. * Respiratory failure, on mechanical ventilation * Thrombocytopenia * Lactic acidosis * Vitamin B12 deficiency * Folate deficiency * Non-STEMI * CAD * History of liver disease * Chronic low back pain * Hypertension * Hyperlipidemia * Depression Plan: * Repeat CT head performed showed no acute intracranial process. * Repeat EEG performed 05/21/2024 was again abnormal due to generalized slowing of moderate to severe degree. No changes compared to the EEG from yesterday. * Initial EEG on 05/20/2024 was abnormal due to background slowing of moderate to severe degree. This suggestive of generalized cerebral dysfunction, as can be seen with toxic metabolic encephalopathy related to diffuse structural brain abnormality. Clinical correlation is recommended. No epileptiform activity was seen. * Dr. Olvera placed him on Empirical Keppra 1000 mg IV twice daily. * Ammonia level < 9, B12 175, folate 3.50, blood cultures so far negative. Patient has been started on B12 replacement and folate replacement. * 2D echo revealed normal LV function with EF 60 to 65%. No obvious regional wall motion abnormalities. Normal left atrial size. No valvular abnormalities. * Carotid Doppler revealed less than 50% stenosis of bilateral carotid bifurcations. Antegrade flow in both vertebral arteries. * Cardiology on board for elevated cardiac enzymes. Patient is off Plavix at this time. * Patient had a low-grade temperature. Infectious disease consulted. Patient started on acyclovir and also on Zosyn. Lumbar puncture was considered to rule out encephalitis. However patient used to be on Plavix. He took the last dose on 05/19/2024, but he was throwing up all day, therefore family not sure if was absorbed, or he threw it up. However for sure he received the dose on 05/18/2024. Pain specialist was consulted for LP but stated cannot perform it since has thrombocytopenia * Other medical management as per IM and other specialties on board. The plan is discussed with his nurse. Time with Patient: Less than 30
--- NOTE | 2024-05-26 14:52 | P.PN ---
Subjective Progress Note Date: 05/26/24 HISTORY OF PRESENTING ILLNESS This is a pleasant 64-year-old with past medical history significant for CAD status post PCI of the RCA October 2022, chronic pain, hyperlipidemia, depression, anxiety who presents secondary to epigastric discomfort, nausea, vomiting, diaphoresis. Patient currently intubated and sedated history is supplied by family members. Family states he had been feeling fine and then within a few hours started having nausea, upset stomach and breaking out in a profuse sweat. They were concerned secondary to some of his symptoms of sweating been similar to his prior cardiac arrest and stenting. He had been doing fairly well and has been over 12 months since his stenting however apparently had been placed on Plavix and aspirin discontinued in the past.. He follows in the office with Dr Robles. He was combative in the emergency department and he required Ativan and became lethargic and required intubation. His lactic acid was significantly elevated at 9 and blood pressure borderline in the 80s over 50s additionally had borderline fever with temperature 100.4. Currently he is intubated and sedated on ventilator. Blood work White blood cell count 13.5, creatinine 0.8, lactic acid 9.5 down to 2.4, troponin 0.07, 0.09, 0.08. EKG showed normal sinus rhythm with no significant ST or T-wave abnormalities. 05/21 Patient seen and examined. Patient remains intubated and sedated. Blood pressures stable off of any vasopressors. Per nursing he has been somewhat restless and was placed Versed. 40% FiO2. Remains on propofol as well. Echo showed preserved EF. EEG was performed with generalized background slowing. 05/22 Patient seen and examined. Patient remains intubated and on mechanical ventilation. Plavix may be discontinued as his last stent was in 2022. He is tentatively scheduled for LP on Friday. Blood pressure 117/62, heart rate 77, pulse ox 100%. Repeat blood work reveals platelet count of 37, hemoglobin 12.1. Creatinine 0.6. 05/23 Patient seen and examined in the intensive care unit. Patient remains intubated on mechanical ventilation. Patient had a sedation holiday yesterday that failed. He has had good urine output. Plan is to do LP early this week as patient has been off Plavix for longer than was originally known. Blood pres sure 124/56, heart rate in the 80s and 90s, pulse ox 97%. Repeat blood work reveals hemoglobin 12.1 and platelet count 45. Sodium 135, potassium 3.9, creatinine 0.58. Alkaline phosphatase 131. Total bilirubin 2. Repeat chest x- ray reveals retrocardiac infiltrate and/or small left pleural effusion. May 24, 2024 Patient is seen and examined at bedside this a.m. Hemodynamically stable. Den ies any chest pain chest pressure. BP 127/58, heart rate 84 beats minute, Hemoglobin 11.8, platelets 72, HIT workup still awaited, BUN 18, creatinine 0.5 May 25, 2024 Patient is seen and examined at bedside this a.m. Patient blood pressure 126/57 via arterial line. Heart rate 93, sinus rhythm. Patient is currently on propofol and IV fluids. Kidney function is stable. Platelets are improving. No signs of bleeding. Patient is due to undergo a lumbar puncture today. He stays on ventilator support. Patient seen and examined at bedside this a.m. He stays on ventilator support. PHYSICAL EXAMINATION Vital signs reviewed. CONSTITUTIONAL: No apparent distress, intubated and sedated HEENT: Head is normocephalic. Pupils are equal, round. Sclerae anicteric. Mucous membranes of the mouth are moist. No JVD. No carotid bruit. CHEST EXAMINATION: On vent support, lungs are clear to auscultate HEART EXAMINATION: Regular rate and rhythm. S1, S2 heard. No murmurs, gallops or rub. ABDOMEN: Soft, nontender. Positive bowel sounds. EXTREMITIES: No significant swelling in bilateral lower extremity. NEUROLOGIC EXAMINATION: Patient is intubated and sedated ASSESSMENT Non-STEMI, likely type II mechanism related to septic shock Sepsis with fever, tachycardia, white blood cell count and nausea and vomiting Septic shock Lactic acidosis Thrombocytopenia possibly due to sepsis rule out HIT CAD status post RCA stenting in 2022 Hypertension Hyperlipidemia Echocardiogram showed preserved LVEF of 55 to 60% with no major valvular abnormality PLAN Patient had type II NSTEMI because of underlying sepsis. Because of thrombocytopenia after starting IV heparin drip and concerns of heparin-induced thrombocytopenia, we have discontinued IV heparin drip. We will discontinue Plavix. Resume aspirin 81 mg daily. Continue with current supportive care. Prognosis guarded At this time cardiology team will sign off. Please reconsult us in case of any questions. Objective - Vital Signs Vital signs: Vital Signs Temp 98.8 F 05/26/24 08:00 Pulse 83 05/26/24 14:00 Resp 18 05/26/24 14:00 BP 150/88 05/26/24 11:00 Pulse Ox 97 05/26/24 14:00 FiO2 30 05/26/24 14:00 Intake & Output 05/25/24 05/26/24 05/26/24 18:59 06:59 18:59 Intake Total 2117.163 0612.143 6654.231 Output Total 1465 1450 1165 Balance 652.163 485.905 202.231 Weight 87.1 kg 87.1 kg Intake: IV 1186 936 874 Acyclovir Sodium 850 mg 250 250 In Sodium Chloride 0.9% 250 ml @ 267 mls/hr IVPB Q8HR [facility] Rx#:[id number] Sodium Chloride 0.9% 1, 900 900 600 000 ml @ 75 mls/hr IV . [id number] [facility] Rx#:[id number] pressure bag 36 36 24 Intake, IV Titration 243.163 357.905 35.231 Amount propofoL 1,000 mg In 243.163 357.905 35.231 Empty Bag 1 bag @ 15 MCG/ KG/MIN 7.83 mls/hr IV . [id number] [facility] Rx#:[id number] Oral 46 Tube Feeding 552 552 368 Other 90 90 90 Output: Urine 1465 1450 1165 Other: Voiding Method Indwelling Catheter Indwelling Catheter Indwelling Catheter ABP, PAP, CO, CI - Last Documented Arterial Blood Pressure 119/53 - Labs CBC & Chem 7: 05/26/24 04:20 05/26/24 04:20 Labs: Abnormal Lab Results - Last 24 Hours (Table) 05/26/24 05/26/24 05/26/24 Range/Units 04:20 04:20 05:14 RBC 3.48 L (4.30-5.90) m/uL Hgb 11.6 L (13.0-17.5) gm/dL Hct 34.8 L (39.0-53.0) % MCV 100.1 H (80.0-100.0) fL Plt Count 91 L (150-450) k/uL Lymphocytes # 0.4 L (1.0-4.8) k/uL ABG pO2 127 H (83-108) mmHg ABG HCO3 26 H (21-25) mmol/L ABG Total CO2 27 H (19-24) mmol/L ABG O2 Saturation 99.1 H (94-97) % Hemoglobin 12.2 L (13.0-17.5) gm/dL Sodium 136 L (137-145) mmol/L Chloride 111 H (98-107) mmol/L BUN 22 H (9-20) mg/dL Creatinine 0.52 L (0.66-1.25) mg/dL Glucose 116 H (74-99) mg/dL POC Glucose (mg/dL) (70-110) mg/dL Calcium 8.1 L (8.4-10.2) mg/dL 05/26/24 Range/Units 05:42 RBC (4.30-5.90) m/uL Hgb (13.0-17.5) gm/dL Hct (39.0-53.0) % MCV (80.0-100.0) fL Plt Count (150-450) k/uL Lymphocytes # (1.0-4.8) k/uL ABG pO2 (83-108) mmHg ABG HCO3 (21-25) mmol/L ABG Total CO2 (19-24) mmol/L ABG O2 Saturation (94-97) % Hemoglobin (13.0-17.5) gm/dL Sodium (137-145) mmol/L Chloride (98-107) mmol/L BUN (9-20) mg/dL Creatinine (0.66-1.25) mg/dL Glucose (74-99) mg/dL POC Glucose (mg/dL) 121 H (70-110) mg/dL Calcium (8.4-10.2) mg/dL Microbiology - Last 24 Hours (Table) 05/20/24 02:28 Blood Culture - Final Blood
[2024-05-26] MEDS: ASPIRIN 81 MG PO SCH (15:47)
--- NOTE | 2024-05-26 15:47 | XR ---
EXAMINATION TYPE: XR chest 1V portable DATE OF EXAM: 05/26/2024 Comparison: 05/26/2024 Clinical History: 64-year-old male orogastric tube placement Findings: ET and NG tube are satisfactory. Heart upper limits of normal in size. Mild interstitial prominence i s unchanged. No consolidation or pleural effusion. Impression: Mild interstitial prominence could reflect bronchitis, asthma, or mild pulmonary vascular congestion. Clinically correlate. [facility], , 05/26/2024 3:45 PM
[2024-05-26 16:28] LABS: Glucose,Whole Blood 99 mg/dL (70-110)
[2024-05-26 17:37] LABS: Glucose,Whole Blood 103 mg/dL (70-110)
[2024-05-26] MEDS: CLEVIDIPINE BUTYRATE 25 MG in EMPTY BAG 1 BAG IV SCH (21:09)
[2024-05-26 23:20] LABS: Glucose,Whole Blood 101 mg/dL (70-110)
[2024-05-26] MEDS: SCOPOLAMINE 1 MG/72 HR PATCH TRANSDERM SCH (23:31)
[2024-05-26] MEDS: SENNOSIDES-DOCUSATE SODIUM 1 EACH TAB PO SCH (23:31)
[2024-05-27 04:16] LABS: Basophils % (A) 0 %; Eosinophils # (A) 0.1 k/uL (0-0.7); Eosinophils % (A) 2 %; HCT 35.7 % (39.0-53.0); HGB 11.8 gm/dL (13.0-17.5); Lymphocytes # (A) 0.7 k/uL (1.0-4.8); Lymphocytes % (A) 13 %; MCH 32.7 pg (25.0-35.0); MCHC 32.9 g/dL (31.0-37.0); MCV 99.2 fL (80.0-100.0); Monocytes # (A) 0.5 k/uL (0-1.0); Monocytes % (A) 9 %; Neutrophils # (A) 3.9 k/uL (1.3-7.7); Neutrophils % (A) 74 %; Platelet Count 100 k/uL (150-450); RDW 13.6 % (11.5-15.5); WBC 5.3 k/uL (3.8-10.6)
[2024-05-27 04:36] LABS: African American GFR (CKD) >90 (>60 ml/min/1.73 sqM); Anion Gap 3 mmol/L; Blood Urea Nitrogen 19 mg/dL (9-20); Calcium 8.3 mg/dL (8.4-10.2); Carbon Dioxide 26 mmol/L (22-30); Chloride 110 mmol/L (98-107); Glucose 113 mg/dL (74-99); Non-African American GFR(CKD) >90 (>60 ml/min/1.73 sqM); Potassium 3.9 mmol/L (3.5-5.1); Sodium 139 mmol/L (137-145)
[2024-05-27 05:22] LABS: ABG Base Excess 2.2 mmol/L; ABG HCO3 26 mmol/L (21-25); ABG Oxygen Saturation 98.6 % (94-97); ABG PCO2 38 mmHg (35-45); ABG PH 7.45 (7.35-7.45); ABG PO2 104 mmHg (83-108); ABG TCO2 28 mmol/L (19-24); Allen Test Performed? Yes
[2024-05-27 05:38] LABS: Glucose,Whole Blood 108 mg/dL (70-110)
[2024-05-27] MEDS: POTASSIUM BICARBONATE/CIT AC 20 MEQ TABLET.EFF NG-TUBE SCH ×2 (06:42→06:43)
--- NOTE | 2024-05-27 08:59 | XR ---
EXAMINATION TYPE: XR chest 1V portable DATE OF EXAM: 05/27/2024 Comparison: 05/26/2024 Clinical History: 64-year-old male mechanical ventilation Findings: ET and NG tubes are satisfactory. Patient is rotated towards the left altering the normal cardiomedia stinal contour. Chronic healed fracture deformity mid left clavicular shaft. Heart normal size. Mild interstitial prominence without rhiannon consolidation or pleural effusion. Suspect some volume loss at the left base given some asymmetric elevation left hemidiaphragm which is increased from prior. Impression: Rotated exam. Some volume loss suspected at the left base given asymmetric elevation left hemidiaphra gm, increased from prior. Probably transient. Attention on follow-up. [facility], , 05/27/2024 8:57 AM
--- NOTE | 2024-05-27 10:47 | P.PCN ---
Date of Procedure: 05/27/24 Procedure(s) Performed: Preoperative diagnosis: Altered mental status Post operative diagnoses: Altered mental status Procedure= lumbar puncture Anesthesia= local infiltration with lidocaine 1% 3 mL. Condition: stable Complication: none. Description of the procedure procedure risk and benefits discussed with the patients family, consent signed. Patient and the procedure area placed in lateral position ( left side down ), back prepped with chlorhexidine 3 times been local infiltration of the skin and subcutaneous tissue with lidocaine 1% 3 mL for skin and subcu interstitial frustrations at L4 5 levels then 22-gauge Quincke-type needle advanced slowly at L4- 5 interlaminar space there was positive cerebrospinal fluid , no heme, no paresthesia ,total of 9 ML of clear cerebrospinal fluid collected in 4 different tubes 2-2-1/2 mL in each, then the needle removed and a Band-Aid applied and patient tolerated the procedure well without any complications. (Patient was intubated sedated in the intensive care unit, sedation was already provided by the intensive care team , because patient was on the ventilator )
--- NOTE | 2024-05-27 12:11 | P.PN ---
Subjective Progress Note Date: 05/27/24 Principal diagnosis: Respiratory failure. Patient is a 64-year-old male with past medical history significant for coronary artery disease with previous PCI/stent, syncope, hypertension, hyperlipidemia, among other things. Patient is currently intubated to the mechanical ventila [facility], unable to provide any information for HPI. Patient presented emergency department early this morning. Apparently, family heard the patient fall from a different room. They found him on the floor shaking with reported seizure-like activity. When EMS arrived patient was confused and combative. They did give 10 mg of IM Versed. On arrival to the emergency department, patient was intubated by the ER provider. He is underwent an extensive workup. CT of the brain and C-spine did not show any acute intracranial hemorrhage, no midline shift or mass effect. No C-spine fracture or subluxation. Apparently, the patient was having nausea and vomiting and fever. A CT of the chest abdomen and pelvis did not show obvious saddle PE. No acute intra-abdominal process. There was some abdominal wall thickening of the sigmoid colon, likely from chronic diverticulitis. Incidentally, a 10 mm nonobstructive calculus seen in the mildly dilated right renal pelvis. Patient remains in the emergency department on my evaluation, in trauma bay 2. Remains intubated mechanical ventilator with current ventilator settings including assist-control, respiratory rate 18, tidal volume 450, FiO2 50%, PEEP of 5. Postintubation ABG includes a PaO2 of greater than 420, pCO2 of 40, and pH of 7.3. This was done on a FiO2 of 100%. He is on propofol currently infusing at 25 mcg/kg/min. Synchronous with current ventilator settings. Fentanyl is also infusing at 2 mcg/kg/h. Heparin infusing per protocol. Patient did have some elevated troponins on presentation of the 0.07 and 0.09 respectively. EKG: Sinus tachycardia, rate 101 bpm, no obvious acute ischemic changes. Body temperature now hypothermic, currently 36 C with Porsha hugger on, heart rate 83 bpm, blood pressure normotensive at 105/71 mmHg, SpO2 98%. CBC: WBC count 13.5, hemoglobin 17, hematocrit 52.7, platelets 123. CMP: Sodium 137, potassium 4.2, chloride 105, serum bicarb 12, BUN 28, creatinine 0.8, glucose 144. Lactic elevated at 9.5. LFTs unremarkable. Patient did have a fever of 100 degrees on arrival to the emergency department. Was given dose of cefepime. UA not very remarkable for infection, rare bacteria. Urine drug screen positive for opiates, benzodiazepines, marijuana. Serum alcohol level less than 10. Patient was loaded with Keppra in the emergency department. No further seizure-like activity noted. Patient was evaluated today on 05/21/2024. Remains in the ICU, intubated and mechanically ventilated, patient remains on antibiotics remains on seizure medications he is on assist-control rate of 18 tidal volume 450 FiO2 40% and PEEP of 5 ABG showed a pO2 of 120 pCO2 36 pH of 7.42 hands his FiO2 was cut down to 35%. Patient became extremely agitated last night and early this morning, and he was not mentally appropriate, hence required more sedation to be able to ventilating properly we had to increase his Versed to 5 mg/h he remains on propofol at 45 mcg/kg/min. Patient also spiked a temp yesterday, and neurology is likely to recommend lumbar puncture on this patient today. His EEG showed mostly slowing activity but no seizures. Patient is maintained on Keppra his carotid studies are negative his echocardiogram showed good LV function with ejection fraction of 60 to 65%, no significant valvular heart disease. I was planning to consider weaning on this patient today, however with his present condition this is placed on hold. On admission patient was placed on Unasyn for possible aspiration pneumonia, chest x-ray today is reassuring. Minimal atelectasis no clear-cut evidence of pneumonia. However considering his intermittent fevers, will continue on Unasyn for now. And again the patient may require lumbar puncture todayWBC count today is 8 hemoglobin is 13.3 electrolytes are normal potassium is a bit low at 3.5, Today on 05/22/2024, remains in the ICU, intubated and mechanically ventilated. No lumbar puncture was done for some reason, however the patient antibiotics were adjusted seen by infectious disease and now he is covered with acyclovir and Zosyn. He was on Unasyn initially. Patient remains on mechanical ventilation, assist-control rate of 18 tidal volume 450 FiO2 35% and PEEP of 5 ABG showed a pO2 of 102 pCO2 34 pH of 7.46. Remains on Versed at 6 mg/h propofol at 50 mcg/kg/min IV fluid 75 cc/h of 0.9 normal saline. Patient is now off Plavix, apparently the lumbar puncture will not be done until he is off Plavix for 5 days. Chest x-ray showed minimal basilar atelectasis especially of the left base no clear-cut evidence of pneumonia. EEG showed generalized slowing of moderate to severe degree. Suggestive of generalized cerebral dysfunction. No definite seizure focus. CBC is relatively normal basic metabolic profile is relatively normal renal profile is normal Patient was evaluated today on 05/23/2024, remains in the ICU, intubated and mechanically ventilated. On assist-control rate of 18 tidal volume 450 FiO2 35% and PEEP of 5 ABG showed a pO2 of 95 pCO2 38 pH of 7.43, hence did not recommend any change in ventilator settings. Patient remains encephalopathic, when he went off propofol for a brief period of time today, patient remained unresponsive to any stimuli, gets agitated easily, no purposeful movement, patient has upward gaze deviation of his eyes, remains on propofol at 30 and he is on enteral feeding in the form of vital AF 1.243/43 at 75 cc/h. His procalcitonin level is normal at 0.12 patient was seen by infectious disease and seen by neurology, and the plan is to have lumbar puncture on this patient tomorrow. Chest x-ray showed mostly retrocardiac infiltrate and small left pleural effusion WBC 6.4 hemoglobin 12.1 basic metabolic profile is normal renal profile is normal Progress note dated May 24, 2024. 64-year-old male who was admitted back on May 20. He apparently had a fall, had evidence of fever, and elevated troponins. The patient came to the intensive care unit on May 20, and was intubated on May 20. Since that time, he has been evaluated for possible encephalopathy. The lumbar puncture is planned for tomorrow. The patient remains on the mechanical ventilator. He is on volume assist-control, rate 18, tidal volume 450, FiO2 35% to be dropped down to 30%, and PEEP of 5. Blood gases show pO2 of 128, pCO2 40, pH of 7.43. His procalcitonin level was 0.12. Zosyn is discontinued. He continues on propofol at 40 mcg/kg/min, saline at 75 cc an hour, and vital AF at 43 cc an hour, which is goal. In addition to Zosyn, he is on acyclovir. We will attempt a daily interruption of sedation. Current labs include a white count 5.4, hemoglobin 11.8, macro 36.7, and platelet count of 72,000. Sodium 136, potassium 3.9, chlorides 109, CO2 24, BUN 18, creatinine 0.51. Glucose is 120. Calcium is 8.1. Blood and sputum sampling are negative. Chest x-ray shows some improved patchy bibasilar opacities. Progress note dated May 25, 2024. 64-year-old male admitted back on May 20. The patient remains in the ICU, in room 258. The patient remains on mechanical ventilator. Ventilator settings include volume assist-control, rate 18, tidal volume 450, FiO2 30%, PEEP of 5. Blood gases show pO2 of 62, pCO2 38, pH is 7.45. The patient remains on propofol at 50 mcg/kg/min, saline at 75 cc an hour, and vital AF at 46 cc an hour, which is goal. The patient had an uneventful night. He did relatively well yesterday on his daily interruption of sedation and spontaneous breathing trial, although he had copious secretions. White count 5.6, hemoglobin 12.1, hematocrit 36.6, platelet count 89,000. Sodium is 137, potassium 4.1, chlorides 110, CO2 25, BUN 19, creatinine 0.48. Calcium is 8.1. Glucose is 103. Microbiologic studies are thus far negative. Chest x-ray shows improved aeration of both lung veliz. Progress note dated May 26, 2024. 64-year-old male admitted back on May 20, remains in the intensive care unit, room 258. The patient remains on mechanical ventilator. He is on volume assist-control, rate 18, tidal volume 450, FiO2 30%, PEEP of 5. Blood gases show pO2 of 127, pCO2 39, pH is 7.43. The patient is getting saline at 75 cc an hour, and vital tube feedings at 36 cc an hour, which is goal. White count is 5.1, hemoglobin 11.6, hematocrit 34.8, and platelet count 91,000. Sodium 136, potassium 3.8, chlorides 111, CO2 25, BUN 22, and creatinine 0.52. Chest x-ray shows some mild interstitial prominence. The chest x-ray is largely unchanged. Progress note dated May 27, 2024. 64-year-old male seen today in room 258. The patient remains on the ventilator. The patient has done poorly with his spontaneous breathing trials. The patient is on volume assist-control, rate 18, tidal volume 450, FiO2 30%, PEEP of 5. Blood gases are reasonable, with a pO2 of 104, pCO2 of 38, pH of 7.45. He is getting propofol at 50 mcg/kg/min, and vital AF at 46 cc an hour which is goal. The patient did have his lumbar puncture today. Will attempt another weaning trial on him today. White count was 5.3, hemoglobin 11.8, hematocrit 35.7, and platelet count 100,000. Sodium 139, potassium 3.9, chlorides 110, CO2 26, BUN 1 9, creatinine 0.52. Glucose was 108. Calcium is 8.3. Chest x-ray shows some volume loss on the left side. Objective - Vital Signs Vital signs: Vital Signs Temp 98.4 F 05/27/24 04:00 Pulse 85 05/27/24 11:00 Resp 17 05/27/24 11:00 BP 141/83 05/27/24 11:00 Pulse Ox 97 05/27/24 11:00 FiO2 30 05/27/24 11:29 Intake & Output 05/26/24 05/27/24 05/27/24 18:59 06:59 18:59 Intake Total 3700.346 1298.384 1007.481 Output Total 1535 1770 515 Balance 388.231 322.384 492.481 Weight 87.1 kg 96.2 kg Intake: IV 1186 1186 640 Acyclovir Sodium 850 mg 250 250 250 In Sodium Chloride 0.9% 250 ml @ 267 mls/hr IVPB Q8HR [facility] Rx#:[id number] Sodium Chloride 0.9% 1, 900 900 375 000 ml @ 75 mls/hr IV . [id number] [facility] Rx#:[id number] pressure bag 36 36 15 Intake, IV Titration 35.231 264.384 107.481 Amount propofoL 1,000 mg In 35.231 264.384 107.481 Empty Bag 1 bag @ 15 MCG/ KG/MIN 7.83 mls/hr IV . [id number] [facility] Rx#:[id number] Tube Feeding 552 552 230 Other 150 90 30 Output: Urine 1535 1770 515 Other: Voiding Method Indwelling Catheter Indwelling Catheter ABP, PAP, CO, CI - Last Documented Arterial Blood Pressure 166/72 - Exam No acute distress, sedated, with an orally placed endotracheal tube. HEENT examination is grossly unremarkable. Mucous membranes are moist. No oral lesions. Neck supple. Full range of motion. No adenopathy thyromegaly or neck vein distention. Cardiovascular examination reveals regular rhythm rate. S1-S2 normal. No S3 or S4. No discernible murmur noted. Lungs reveal mild scattered rhonchi. No wheezes. No crackles. Breath sounds equal. Abdomen soft bowel sounds are heard. No masses or tenderness. Extremities are intact. No cyanosis clubbing or edema. Skin is without rash or lesion. Neurologic examination cannot be fully evaluated at this time. - Labs CBC & Chem 7: 05/27/24 04:00 05/27/24 04:00 Labs: Abnormal Lab Results - Last 24 Hours (Table) 05/27/24 05/27/24 05/27/24 Range/Units 04:00 04:00 05:20 RBC 3.60 L (4.30-5.90) m/uL Hgb 11.8 L (13.0-17.5) gm/dL Hct 35.7 L (39.0-53.0) % Plt Count 100 L (150-450) k/uL Lymphocytes # 0.7 L (1.0-4.8) k/uL ABG HCO3 26 H (21-25) mmol/L ABG Total CO2 28 H (19-24) mmol/L ABG O2 Saturation 98.6 H (94-97) % Hemoglobin 11.3 L (13.0-17.5) gm/dL Chloride 110 H (98-107) mmol/L Creatinine 0.52 L (0.66-1.25) mg/dL Glucose 113 H (74-99) mg/dL Calcium 8.3 L (8.4-10.2) mg/dL Assessment and Plan Assessment: Acute mental status changes, of unclear etiology. Respiratory failure requiring intubation/mechanical ventilation, beginning on May 20, 2024. Failure to wean from mechanical ventilation. Metabolic encephalopathy. Rule out viral [employer] infection. Acute sepsis, source not clear. Acute syncopal episode, versus seizure. History of CAD with previous PCI/stent. Hyperlipidemia. Benign essential hypertension. History of marijuana use. Plan: Plan dated May 24, 2024. The patient was admitted on 20 May. The patient was intubated on the same day. The patient had acute mental status changes, and is remains on mechanical ventilator. The FiO2 is reduced from 35%, down to 30%. Will discontinue Zosyn as the procalcitonin level is 0.12. The patient should continue on acyclovir. We will wake up the patient, and attempt a spontaneous breathing trial. He may not be ready. Additional recommendations and suggestions are forthcoming. Labs, x-rays, and medications are reviewed. We will continue nutritional support, and GI/DVT prophylaxis. LP is planned for tomorrow. Plan dated May 25, 2024. The patient is seen today in room 258. We will attempt another daily interru ption of sedation, possible spontaneous breathing trial. The patient is scheduled to have a lumbar puncture today. Antibiotics in the form of Zosyn were discontinued yesterday, because his procalcitonin level was normal. He continues on acyclovir for presumed viral encephalopathy. Labs, x-rays, and all medications are reviewed. We will continue to follow make recommendations along the way. Prognosis is certainly guarded. The patient remains on the ventilator. Yesterday, he did well on a spontaneous breathing trial, save for copious secretions. Plan dated May 26, 2024. We will attempt another interruption of sedation, and spontaneous breathing trial. The patient is having significant secretions. Labs, x-rays, medications are reviewed. Lumbar puncture has not yet been done, because the platelet count is below 100,000. The patient continues on acyclovir. Cultures are thus far negative. We will continue to follow the patient, make recommendations along the way. Prognosis is guarded. Plan dated May 27, 2024. The patient will have another attempt at a spontaneous breathing trial. If he fails, we will opt for a tracheostomy and feeding tube. Labs, x-rays, and m edications are reviewed. Blood gases show pO2 104, pCO2 of 38, pH is 7.45. The patient is on propofol at 50 mcg/kg/min. Patient did have a lumbar puncture today. We will continue to follow make recommendations along the way. Prognosis is guarded. Time with Patient: Greater than 30
[2024-05-27 12:44] LABS: Glucose,Whole Blood 106 mg/dL (70-110)
--- NOTE | 2024-05-27 12:58 | P.PN ---
Subjective Progress Note Date: 05/26/24 HISTORY OF PRESENT ILLNESS: 64-year-old one of my office patient for many years with active medical history of CAD post PCI and stent placement of the RCA back in October 2022, history of chronic clinical hepatitis with early cirrhosis, history of chronic lower back pain with spinal stenosis, hypertension, hyperlipidemia, hyperglycemia, chronic lower back pain, recurrent pancreatitis, chronic history of neuropathy of the lower extremity, chronic kidney disease stage III, with history of BPH mild anxiety and edema who brought to the emergency department by EMS that patient apparently through the day developed to have severe nausea vomiting with recurrent abdominal pain according family heard stump with falling found him shaking and having seizure-like activity on the floor EMS were called to the scene when arrived found to have confused and combative they gave him 10 mg of Versed which made him very calm had no further seizure activity at the time. At the time of his arrival to the emergency department patient was very confused combative hypoxic and having worsening symptoms and that being in intubated and kept on mechanical ventilation and on sedation. At that point in the ER ended up doing CT of the brain and C-spine did not show any acute intracranial hemorr brando or abnormality and no midline shift, C-spine failed to show any fracture or subluxation. CT of the abdomen and pelvis did not show any obvious saddle pulmonary embolism no acute intracranial abdominal process was seen slight some abdominal wall thickening in the sigmoid colon most likely from chronic diverticulitis and incidental 10 mm of nonobstructive calculus within the mid dilated right renal pelvis. Patient was sedated on mechanical ventilation In the emergency department was giving cefepime UA was positive at the time drug screen was positive for opiates benzodiazepine and marijuana which patient taking medication and admitted taking marijuana every so often. Risk [facility] and given duration patient be admitted to the ICU. 05/21/2024: Patient still intubated on mechanical ventilation in the ICU he is extremely agitated when trying to back off sedation, still with all the collected information from family seems like he had seizure EEG did not show any seizure activity at this point. With his low-grade temperature and not finding any source of infection or reason for his symptoms neurology is leaning toward having to do lumbar puncture for collection of spinal fluid for further analysis problem the patient had last dose of antiplatelet agent within the last 4 days which will be a close this time to be able to do LP will be around Friday next week. Meanwhile further recommendation by infectious disease for other infection specially infectious process like Lyme or other pathogen might be the source stomach not been found out. Echocardiogram was performed showed good ejection fraction with no valvular heart disease. Antibiotic was changed by infectious disease to Zosyn from cefepime. Laboratory value with white blood cell is down to 8000 no anemia urine test still showing some RBC more than WBC with large amount of blood and trace bacteria. Chest x-ray shows no acute cardiopulmonary process. 05/22/2024: Patient remain on mechanical ventilation, herpes antibody type I positive patient was started on acyclovir, antibiotic was switched to Zosyn as well. Repeat chest x-ray today still negative with no sign of aspiration or infection. Data been collected on Lyme and [place] Nile. Neurology still believe having to do LP will be valuable data is not marciano be done till Friday based on the last day he had antiplatelet agent which will make it safer by Friday only. Further management and finding including no fever at this point blood pressure and vitals are stable the patient is still not weanable of mechanical ventilation he is agitated when back off on sedation. 05/23/2024: Still sedated on mechanical ventilation, labs from this morning with white blood cell 6.4 normal kidney function, blood sugar running in the low 100s. Chest x-ray has been showing slight haziness in the right lower lobe. Apparently reviewed from infectious disease believe this is still can be an infectious process combination of either diverticulitis or aspiration pneumonia or a combination of both also the necessity to do lumbar puncture in last day of Plavix was 05/20/2024 waiting at least till 05/25/2024 which will be on Friday. 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 Still planning to do LP but not till Friday. Patient backing off on sedation he become quite agitated and not comfortable start thrashing everything around him making it not easy so far he still on mechanical ventilation. 05/24/2024: Patient remains on mechanical ventilation, hemodynamically still stable with pulse oximetry and FiO2 of 35 percentile still at 98%, laboratory value does not show any major abnormality, chest x-ray still shows mostly clear lung with slight haziness on the right basal mostly similar to obesity with slight aspiration. Currently no change on blood panel done for patient still on Zosyn and acyclovir waiting for aspiration pneumonia and diverticulitis his testing for [place] Nile still pending, Lyme test is not back yet he has herpes simplex 1 serology positive and treated with acyclovir. Patient be going for lumbar puncture tomorrow the earliest to allow enough time while on antiplatelet agent not to have any major impact with the test itself. At this stage and again patient should have probably feeding tube should start enteral feeding not wait any longer continue management for seizure as well as recommended by neurology. 05/25/2024: Patient still on mechanical ventilation still sedated not been able to wean him off vent currently, lumbar puncture is planned today the earliest. Procalcitonin apparently has been low at 0.12 and pulmonary are think about quitting Zosyn he will be kept on acyclovir as of now. Lyme antibody came back negative. He is FiO2 is with use down to 30% but yesterday successful, lab from today showing white blood cell of 5.6 hemoglobin 12.1 hematocrit 36.6 still have mild thrombocytopenia with 89 platelet count, blood sugar still in the low 100. Chest x-ray repeat does not show any sign of infiltrate or haziness the fact bronchial shadow looks even negative for bronchitis. Troponin was mildly elevated but patient does not have any sign of reduced ejection fraction to indicate acute HI, apparently cardiology decided to discontinue Plavix permanently and to start him on aspirin following his lumbar puncture still holding off on any anticoagulation specially heparin and Lovenox based on his HIT. 05/26/2024: Still resting comfortably on mechanical ventilation still sedated, review his vitals and laboratory remain stable with temperature is marginal at 99.2 blood pressure 150/88 with FiO2 30 percentile pulse ox running around 96%. Lab value showing white blood cell of 5.1 with normal hemoglobin platelet count up to 91,000 with improving thrombocytopenia, ABG still showing PaO2 of 127 creatinine 0.52 GFR above 90. His urine output remained good. He still on propofol of 50 mcg and sedated diminished backing off sedation he is thrashing and extremely anxious and agitated. EEG apparently was done did not show any seizure activity lumbar puncture apparently scheduled for Friday instead of Friday. Which will be done tomorrow meanwhile his continue to be cancer his altered mental status related to toxic metabolic and possible encephalitis remain critically on mechanical ventilation current condition. REVIEW OF SYSTEMS: CONSTITUTIONAL: Sedated on mechanical ventilation. EYES: No icterus sclerae, no conjunctivitis. EARS, NOSE, MOUTH, THROAT, and FACE: No sore throat, lymphadenopathy, carotid bruits or deformity. ET tube. RESPIRATORY: No SOB cough or wheezes. CARDIOVASCULAR: Intubated. No obvious complaint of chest pain or angina at times despite elevated troponin. GASTROINTESTINAL: Soft positive bowel sounds slight discomfort in the left lower quadrant area and right upper quadrant area as well no rebound or rigidity. GENITOURINARY: Negative for Hematuria or UTI, no kidney stones. INTEGUMENT/BREAST: Negative for any muscular injury with mild osteoarthritis.. HEMATOLOGIC/LYMPHATIC: Negative for bleed or purpura. MUSCULOSKELTAL: Negative for Myalgia or arthralgia. NEURLOGICAL: Sedated anything in ventilation. BEHAVIORAL/PSYCH: Negative. ENDOCRINE: Negative. PHYSICAL EXAMINATION: General Appearance: Sedated on mechanical ventilation with a ET tube in place. Neck HEENT: Supple, no lymphadenopathy, no thyroid enlargement, no carotid bruits. Lungs: Decreased breath sound bilaterally fine rhonchi mild expiratory wheezes. Chest Wall: Decreased expansion with deep inspiration no tenderness and no deformity was found on exam, no costochondral pain or discomfort. Heart: Regular rate and rhythm, S1, S2 normal, no murmur, rub or gallop. Back: Symmetric, no curvature, ROM normal, no CVA tenderness. Abdomen: Soft with slight distention and slight left lower quadrant and mid abdominal region discomfort with no rebound or rigidity. Extremities: Extremities normal, atraumatic, no cyanosis or edema. Pulses: 2+ and symmetric. Skin: Skin color, texture, tugor normal, no rashes or lesions. Neurologic: Sedated on mechanical ventilation. ASSESSMENT AND PLAN: _Most likely sepsis: Still on IV antibiotic between Zosyn and acyclovir Zosyn was stopped because of procalcitonin was negative the patient is running low- grade temperatures still waiting to do his LP which was delayed apparently till tomorrow. _Altered mental status: Most likely secondary to seizure, could be encephalop athy mostly metabolic will try to correct underlying disease also patient might be having manage STEMI might be a cause of the problem. Still no major finding at this point. _Seizure like activity: Negative EEG still on Keppra. _Respiratory failure: Still require sedation and mechanical ventilation not been able to wean him off so far. _Non-STEMI: Most likely type II HI secondary to acute injury no sign of real HI and well-preserved ejection fraction on echo. _Thrombocytopenia possibly due to sepsis rule out HIT platelet count up to 91,000 this point and still climbing. _History of atherosclerotic heart disease: Post angioplasty and stent placement, cardiology decided to take him off Plavix permanently and just put him back on aspirin after lumbar puncture today.. _Severe GERD: Remain on proton pump inhibitor. _Nutrition: Enteral feeding should start probably NG tube start feeding him as early as today. 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 _Chronic lower back pain post surgical intervention: Remain on pain meds and muscle relaxer at this point. _Gastroparesis: Has been on Protonix and Reglan in the past with good follow-up. _Hypertension: Remain on metoprolol titrate 25 mg twice a day his blood pressure still high will add smaller dose of ARB. _Hyperlipidemia: Remain on Lipitor 40 mg a day. _Chronic depression anxiety attacks has been on escitalopram 20 and alprazolam 0.5 mg twice a day. Discussion: Schedule lumbar puncture today was delayed from yesterday awaiting further result in the meanwhile continue to do trial of weaning off ventilator. Objective - Vital Signs Vital signs: Vital Signs Temp 99.2 F 05/26/24 04:00 Pulse 93 05/26/24 05:00 Resp 20 05/26/24 05:00 BP 150/88 05/26/24 05:00 Pulse Ox 96 05/26/24 05:00 FiO2 30 05/26/24 05:08 Intake & Output 05/25/24 05/25/24 05/26/24 06:59 18:59 06:59 Intake Total 2081.168 4186.163 1741 Output Total 1575 1465 1350 Balance 140.520 592.163 391 Weight 96.2 kg 87.1 kg Intake: IV 936 1186 858 Acyclovir Sodium 850 mg 250 In Sodium Chloride 0.9% 250 ml @ 267 mls/hr IVPB Q8HR [facility] Rx#:[id number] Sodium Chloride 0.9% 1, 900 900 825 000 ml @ 75 mls/hr IV . [id number] [facility] Rx#:[id number] pressure bag 36 36 33 Intake, IV Titration 183.520 243.163 287 Amount propofoL 1,000 mg In 183.520 243.163 287 Empty Bag 1 bag @ 15 MCG/ KG/MIN 7.83 mls/hr IV . [id number] [facility] Rx#:[id number] Oral 46 Tube Feeding 506 552 506 Other 90 30 90 Output: Urine 1575 1465 1350 Other: Voiding Method Indwelling Catheter Indwelling Catheter Indwelling Catheter ABP, PAP, CO, CI - Last Documented Arterial Blood Pressure 121/55 - Labs CBC & Chem 7: 05/26/24 04:20 05/26/24 04:20 Labs: Abnormal Lab Results - Last 24 Hours (Table) 05/25/24 05/25/24 05/26/24 Range/Units 06:16 13:25 04:20 RBC 3.44 L 3.48 L (4.30-5.90) m/uL Hgb 11.4 L 11.6 L (13.0-17.5) gm/dL Hct 33.8 L 34.8 L (39.0-53.0) % MCV 100.1 H (80.0-100.0) fL Plt Count 82 L 91 L (150-450) k/uL Lymphocytes # 0.4 L (1.0-4.8) k/uL ABG pO2 62 L (83-108) mmHg ABG HCO3 26 H (21-25) mmol/L ABG Total CO2 27 H (19-24) mmol/L ABG O2 Saturation 92.6 L (94-97) % Hemoglobin 12.0 L (13.0-17.5) gm/dL Sodium (137-145) mmol/L Chloride (98-107) mmol/L BUN (9-20) mg/dL Creatinine (0.66-1.25) mg/dL Glucose (74-99) mg/dL POC Glucose (mg/dL) (70-110) mg/dL Calcium (8.4-10.2) mg/dL 05/26/24 05/26/24 05/26/24 Range/Units 04:20 05:14 05:42 RBC (4.30-5.90) m/uL Hgb (13.0-17.5) gm/dL Hct (39.0-53.0) % MCV (80.0-100.0) fL Plt Count (150-450) k/uL Lymphocytes # (1.0-4.8) k/uL ABG pO2 127 H (83-108) mmHg ABG HCO3 26 H (21-25) mmol/L ABG Total CO2 27 H (19-24) mmol/L ABG O2 Saturation 99.1 H (94-97) % Hemoglobin 12.2 L (13.0-17.5) gm/dL Sodium 136 L (137-145) mmol/L Chloride 111 H (98-107) mmol/L BUN 22 H (9-20) mg/dL Creatinine 0.52 L (0.66-1.25) mg/dL Glucose 116 H (74-99) mg/dL POC Glucose (mg/dL) 121 H (70-110) mg/dL Calcium 8.1 L (8.4-10.2) mg/dL Microbiology - Last 24 Hours (Table) 05/20/24 02:28 Blood Culture - Final Blood
--- NOTE | 2024-05-27 13:02 | P.PN ---
Subjective Progress Note Date: 05/27/24 HISTORY OF PRESENT ILLNESS: 64-year-old one of my office patient for many years with active medical history of CAD post PCI and stent placement of the RCA back in October 2022, history of chronic clinical hepatitis with early cirrhosis, history of chronic lower back pain with spinal stenosis, hypertension, hyperlipidemia, hyperglycemia, chronic lower back pain, recurrent pancreatitis, chronic history of neuropathy of the lower extremity, chronic kidney disease stage III, with history of BPH mild anxiety and edema who brought to the emergency department by EMS that patient apparently through the day developed to have severe nausea vomiting with recurrent abdominal pain according family heard stump with falling found him shaking and having seizure-like activity on the floor EMS were called to the scene when arrived found to have confused and combative they gave him 10 mg of Versed which made him very calm had no further seizure activity at the time. At the time of his arrival to the emergency department patient was very confused combative hypoxic and having worsening symptoms and that being in intubated and kept on mechanical ventilation and on sedation. At that point in the ER ended up doing CT of the brain and C-spine did not show any acute intracranial hemorr brando or abnormality and no midline shift, C-spine failed to show any fracture or subluxation. CT of the abdomen and pelvis did not show any obvious saddle pulmonary embolism no acute intracranial abdominal process was seen slight some abdominal wall thickening in the sigmoid colon most likely from chronic diverticulitis and incidental 10 mm of nonobstructive calculus within the mid dilated right renal pelvis. Patient was sedated on mechanical ventilation In the emergency department was giving cefepime UA was positive at the time drug screen was positive for opiates benzodiazepine and marijuana which patient taking medication and admitted taking marijuana every so often. [facility] and given duration patient be admitted to the ICU. 05/21/2024: Patient still intubated on mechanical ventilation in the ICU he is extremely agitated when trying to back off sedation, still with all the collected information from family seems like he had seizure EEG did not show any seizure activity at this point. With his low-grade temperature and not finding any source of infection or reason for his symptoms neurology is leaning toward having to do lumbar puncture for collection of spinal fluid for further analysis problem the patient had last dose of antiplatelet agent within the last 4 days which will be a close this time to be able to do LP will be around Friday next week. Meanwhile further recommendation by infectious disease for other infection specially infectious process like Lyme or other pathogen might be the source stomach not been found out. Echocardiogram was performed showed good ejection fraction with no valvular heart disease. Antibiotic was changed by infectious disease to Zosyn from cefepime. Laboratory value with white blood cell is down to 8000 no anemia urine test still showing some RBC more than WBC with large amount of blood and trace bacteria. Chest x-ray shows no acute cardiopulmonary process. 05/22/2024: Patient remain on mechanical ventilation, herpes antibody type I positive patient was started on acyclovir, antibiotic was switched to Zosyn as well. Repeat chest x-ray today still negative with no sign of aspiration or infection. Data been collected on Lyme and West Nile. Neurology still believe having to do LP will be valuable data is not marciano be done till Friday based on the last day he had antiplatelet agent which will make it safer by Friday only. Further management and finding including no fever at this point blood pressure and vitals are stable the patient is still not weanable of mechanical ventilation he is agitated when back off on sedation. 05/23/2024: Still sedated on mechanical ventilation, labs from this morning with white blood cell 6.4 normal kidney function, blood sugar running in the low 100s. Chest x-ray has been showing slight haziness in the right lower lobe. Apparently reviewed from infectious disease believe this is still can be an infectious process combination of either diverticulitis or aspiration pneumonia or a combination of both also the necessity to do lumbar puncture in last day of Plavix was 05/20/2024 waiting at least till 05/25/2024 which will be on Friday. 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 Still planning to do LP but not till Friday. Patient backing off on sedation he become quite agitated and not comfortable start thrashing everything around him making it not easy so far he still on mechanical ventilation. 05/24/2024: Patient remains on mechanical ventilation, hemodynamically still stable with pulse oximetry and FiO2 of 35 percentile still at 98%, laboratory value does not show any major abnormality, chest x-ray still shows mostly clear lung with slight haziness on the right basal mostly similar to obesity with slight aspiration. Currently no change on blood panel done for patient still on Zosyn and acyclovir waiting for aspiration pneumonia and diverticulitis his testing for West Nile still pending, Lyme test is not back yet he has herpes simplex 1 serology positive and treated with acyclovir. Patient be going for lumbar puncture tomorrow the earliest to allow enough time while on antiplatelet agent not to have any major impact with the test itself. At this stage and again patient should have probably feeding tube should start enteral feeding not wait any longer continue management for seizure as well as recommended by neurology. 05/25/2024: Patient still on mechanical ventilation still sedated not been able to wean him off vent currently, lumbar puncture is planned today the earliest. Procalcitonin apparently has been low at 0.12 and pulmonary are think about quitting Zosyn he will be kept on acyclovir as of now. Lyme antibody came back negative. He is FiO2 is with use down to 30% but yesterday successful, lab from today showing white blood cell of 5.6 hemoglobin 12.1 hematocrit 36.6 still have mild thrombocytopenia with 89 platelet count, blood sugar still in the low 100. Chest x-ray repeat does not show any sign of infiltrate or haziness the fact bronchial shadow looks even negative for bronchitis. Troponin was mildly elevated but patient does not have any sign of reduced ejection fraction to indicate acute TN, apparently cardiology decided to discontinue Plavix permanently and to start him on aspirin following his lumbar puncture still holding off on any anticoagulation specially heparin and Lovenox based on his HIT. 05/26/2024: Still resting comfortably on mechanical ventilation still sedated, review his vitals and laboratory remain stable with temperature is marginal at 99.2 blood pressure 150/88 with FiO2 30 percentile pulse ox running around 96%. Lab value showing white blood cell of 5.1 with normal hemoglobin platelet count up to 91,000 with improving thrombocytopenia, ABG still showing PaO2 of 127 creatinine 0.52 GFR above 90. His urine output remained good. He still on propofol of 50 mcg and sedated diminished backing off sedation he is thrashing and extremely anxious and agitated. EEG apparently was done did not show any seizure activity lumbar puncture apparently scheduled for Friday instead of Friday. Which will be done tomorrow meanwhile his continue to be cancer his altered mental status related to toxic metabolic and possible encephalitis remain critically on mechanical ventilation current condition. 05/27/2024: He is remain on the ventilator still on sedation, platelet count today are up to 100,000 will be safe for anesthesia to do lumbar puncture for collection of spinal fluid for analysis. Otherwise with pulmonary probably still working for some weaning parameter patient apparently tolerate the holiday vent for about 15 minutes and then started having more problem. Chest x-ray today shows slight increased congestion mostly vascular and mostly on the right side which patient remain on treatment management for it. Despite trying to wean him off the vent and doing lumbar puncture is no other ID at this point there is no new pathogen diagnosed with culture and into the early next week patient probably required to go into tracheostomy and PEG tube in the meanwhile he still been fed via NG tube. REVIEW OF SYSTEMS: CONSTITUTIONAL: Sedated on mechanical ventilation. EYES: No icterus sclerae, no conjunctivitis. EARS, NOSE, MOUTH, THROAT, and FACE: No sore throat, lymphadenopathy, carotid bruits or deformity. ET tube. RESPIRATORY: No SOB cough or wheezes. CARDIOVASCULAR: Intubated. No obvious complaint of chest pain or angina at [facility] despite elevated troponin. GASTROINTESTINAL: Soft positive bowel sounds slight discomfort in the left lower quadrant area and right upper quadrant area as well no rebound or rigidity. GENITOURINARY: Negative for Hematuria or UTI, no kidney stones. INTEGUMENT/BREAST: Negative for any muscular injury with mild osteoarthritis.. HEMATOLOGIC/LYMPHATIC: Negative for bleed or purpura. MUSCULOSKELTAL: Negative for Myalgia or arthralgia. NEURLOGICAL: Sedated anything in ventilation. BEHAVIORAL/PSYCH: Negative. ENDOCRINE: Negative. PHYSICAL EXAMINATION: General Appearance: Sedated on mechanical ventilation with a ET tube in place. Neck HEENT: Supple, no lymphadenopathy, no thyroid enlargement, no carotid bruits. Lungs: Decreased breath sound bilaterally fine rhonchi mild expiratory wheezes. Chest Wall: Decreased expansion with deep inspiration no tenderness and no deformity was found on exam, no costochondral pain or discomfort. Heart: Regular rate and rhythm, S1, S2 normal, no murmur, rub or gallop. Back: Symmetric, no curvature, ROM normal, no CVA tenderness. Abdomen: Soft with slight distention and slight left lower quadrant and mid abdominal region discomfort with no rebound or rigidity. Extremities: Extremities normal, atraumatic, no cyanosis or edema. Pulses: 2+ and symmetric. Skin: Skin color, texture, tugor normal, no rashes or lesions. Neurologic: Sedated on mechanical ventilation. ASSESSMENT AND PLAN: _Respiratory failure: Still require sedation and mechanical ventilation not been able to wean him off so far. _Infectious process mostly sepsis: still only on acyclovir for now lumbar pu ncture be done based on the finding will decide on further management. _Hypoxic encephalopathy: Most likely when patient had his original episode had more hypoxia than expected longer than expected and probably have an impact on was going on with his outcome at this point. Patient might require longer-term vent management try to wean him off at some point. _Altered mental status: Most likely secondary to seizure, could be encephalopathy mostly metabolic will try to correct underlying disease also patient might be having manage STEMI might be a cause of the problem. Still no major finding at this point. _Seizure like activity: Negative EEG still on Keppra. _Non-STEMI: Most likely type II TN secondary to acute injury no sign of real TN and well-preserved ejection fraction on echo. _Thrombocytopenia possibly due to sepsis rule out HIT platelet count up to 91,000 this point and still climbing. _History of atherosclerotic heart disease: Post angioplasty and stent placement, cardiology decided to take him off Plavix permanently and just put him back on aspirin after lumbar puncture today.. _Severe GERD: Remain on proton pump inhibitor. _Nutrition: Enteral feeding should start probably NG tube start feeding him as early as today. 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 _Chronic lower back pain post surgical intervention: Remain on pain meds and muscle relaxer at this point. _Gastroparesis: Has been on Protonix and Reglan in the past with good follow-up. _Hypertension: Remain on metoprolol titrate 25 mg twice a day his blood pressure still high will add smaller dose of ARB. _Hyperlipidemia: Remain on Lipitor 40 mg a day. _Chronic depression anxiety attacks has been on escitalopram 20 and alprazolam 0.5 mg twice a day. Discussion: Hopefully scheduled for lumbar puncture today, still try to wean him off mechanical ventilation will continue current management for now. Review all his findings specially from microbiology and such all cultures are negative at this point. Continue aggressive management still and probably trending into early next week for possible tracheostomy and PEG tube. Objective - Vital Signs Vital signs: Vital Signs Temp 98.4 F 10/10/24 04:00 Pulse 80 05/27/24 07:00 Resp 18 05/27/24 07:00 BP 150/88 05/26/24 18:00 Pulse Ox 98 05/27/24 07:00 FiO2 30 05/27/24 04:07 Intake & Output 05/26/24 05/27/24 05/27/24 18:59 06:59 18:59 Intake Total 3695.009 8130.384 124 Output Total 1535 1770 85 Balance 388.231 322.384 39 Weight 87.1 kg 96.2 kg Intake: IV 1186 1186 78 Acyclovir Sodium 850 mg 250 250 In Sodium Chloride 0.9% 250 ml @ 267 mls/hr IVPB Q8HR [facility] Rx#:[id number] Sodium Chloride 0.9% 1, 900 900 75 000 ml @ 75 mls/hr IV . [id number] [facility] Rx#:[id number] pressure bag 36 36 3 Intake, IV Titration 35.231 264.384 Amount propofoL 1,000 mg In 35.231 264.384 Empty Bag 1 bag @ 15 MCG/ KG/MIN 7.83 mls/hr IV . [id number] [facility] Rx#:[id number] Tube Feeding 552 552 46 Other 150 90 Output: Urine 1535 1770 85 Other: Voiding Method Indwelling Catheter Indwelling Catheter ABP, PAP, CO, CI - Last Documented Arterial Blood Pressure 122/57 - Labs CBC & Chem 7: 05/27/24 04:00 05/27/24 04:00 Labs: Abnormal Lab Results - Last 24 Hours (Table) 05/27/24 05/27/24 05/27/24 Range/Units 04:00 04:00 05:20 RBC 3.60 L (4.30-5.90) m/uL Hgb 11.8 L (13.0-17.5) gm/dL Hct 35.7 L (39.0-53.0) % Plt Count 100 L (150-450) k/uL Lymphocytes # 0.7 L (1.0-4.8) k/uL ABG HCO3 26 H (21-25) mmol/L ABG Total CO2 28 H (19-24) mmol/L ABG O2 Saturation 98.6 H (94-97) % Hemoglobin 11.3 L (13.0-17.5) gm/dL Chloride 110 H (98-107) mmol/L Creatinine 0.52 L (0.66-1.25) mg/dL Glucose 113 H (74-99) mg/dL Calcium 8.3 L (8.4-10.2) mg/dL
--- NOTE | 2024-05-27 14:32 | P.PN ---
Subjective Progress Note Date: 05/27/24 Principal diagnosis: Reason for follow-up is fever question of encephalitis Patient is a 64-year-old male with a past medical history significant for coronary disease reflux hypertension [place], patient was brought into the hospital with an episode of nausea vomiting agitation and seizure-like activity he did have low-grade fever got elevated to protect his airways. On today's evaluation that is 05/27/2024, patient has been afebrile, patient is on the ventilator FiO2 stable at 30% no significant purulent secretion through the ET patient is hemodynamic stable requiring a pressor support no vomiting or diarrhea reported. Patient white count is 5.3 creatinine 0.52 Objective - Vital Signs Vital signs: Vital Signs Temp 98.4 F 05/27/24 04:00 Pulse 79 05/27/24 09:00 Resp 20 05/27/24 09:00 BP 105/64 05/27/24 09:00 Pulse Ox 96 05/27/24 09:00 FiO2 30 05/27/24 08:48 Intake & Output 05/26/24 05/27/24 05/27/24 18:59 06:59 18:59 Intake Total 5529.425 8634.384 776 Output Total 1535 1770 315 Balance 388.231 322.384 461 Weight 87.1 kg 96.2 kg Intake: IV 1186 1186 562 Acyclovir Sodium 850 mg 250 250 250 In Sodium Chloride 0.9% 250 ml @ 267 mls/hr IVPB Q8HR [facility] Rx#:[id number] Sodium Chloride 0.9% 1, 900 900 300 000 ml @ 75 mls/hr IV . [id number] [facility] Rx#:[id number] pressure bag 36 36 12 Intake, IV Titration 35.231 264.384 Amount propofoL 1,000 mg In 35.231 264.384 Empty Bag 1 bag @ 15 MCG/ KG/MIN 7.83 mls/hr IV . [id number] [facility] Rx#:[id number] Tube Feeding 552 552 184 Other 150 90 30 Output: Urine 1535 1770 315 Other: Voiding Method Indwelling Catheter Indwelling Catheter ABP, PAP, CO, CI - Last Documented Arterial Blood Pressure 114/55 - Exam GENERAL DESCRIPTION: An elderly male intubated on the vent RESPIRATORY SYSTEM: Unlabored breathing , decreased breath sounds at bases HEART: S1 S2 regular rate and rhythm , ABDOMEN: Soft , no tenderness EXTREMITIES: No edema feet - Labs CBC & Chem 7: 05/27/24 04:00 05/27/24 04:00 Labs: Abnormal Lab Results - Last 24 Hours (Table) 05/27/24 05/27/24 05/27/24 Range/Units 04:00 04:00 05:20 RBC 3.60 L (4.30-5.90) m/uL Hgb 11.8 L (13.0-17.5) gm/dL Hct 35.7 L (39.0-53.0) % Plt Count 100 L (150-450) k/uL Lymphocytes # 0.7 L (1.0-4.8) k/uL ABG HCO3 26 H (21-25) mmol/L ABG Total CO2 28 H (19-24) mmol/L ABG O2 Saturation 98.6 H (94-97) % Hemoglobin 11.3 L (13.0-17.5) gm/dL Chloride 110 H (98-107) mmol/L Creatinine 0.52 L (0.66-1.25) mg/dL Glucose 113 H (74-99) mg/dL Calcium 8.3 L (8.4-10.2) mg/dL Assessment and Plan (1) Acute encephalopathy Current Visit: Yes Status: Acute Code(s): G93.40 - ENCEPHALOPATHY, UNSPECIFIED SNOMED Code(s): 20324861 (2) Fever Current Visit: Yes Status: Acute Code(s): R50.9 - FEVER, UNSPECIFIED SNOMED Code(s): 062042631 Plan: 1patient presented to hospital with rigors and chills mental status changes and apparently the patient did have significant vomiting the day before presentation to the hospital and did have extensive workup no significant finding except div erticulitis reported by the radiologist on the CT however keeping in mind significant mental status changes agitation combativeness and fever will point was possible encephalitis with a question of possible herpes versus West Nile in the differential, and will also cover for possible component of aspiration pneumonitis/diverticulitis 2-LP has been discussed with the neurologist however the patient has been on Plavix which was discontinued 05/20/2024 hence we will need to wait for at least 5 days before LP could be completed, hopefully can be completed tomorrow as per discussion with the nursing staff 3-HSV-1 serology came back positive HSV-2 serology negative 4-patient is afebrile, white count is normal, platelet count increased to [id number] patient is status post completion of the LP results will be followed for now continue with Zosyn and acyclovir for this antibiotic further on the basis of the LP results Dictation was produced using [employer] dictation software. please excuse any grammatical, word or spelling errors. Time with Patient: Less than 30
--- NOTE | 2024-05-27 15:43 | P.PN ---
Subjective Progress Note Date: 05/27/24 I am following-up with patient and he continues to be intubated on a ventilator. He was on IV Propofol 50mcg/kg/min that was weaned down today and currently not on IV Propofol. Per the nurse he is clinically improving and following commands and they are attempting to extubate. Objective - Vital Signs Vital signs: Vital Signs Temp 98.4 F 05/27/24 12:35 Pulse 87 05/27/24 15:00 Resp 18 05/27/24 15:00 BP 133/75 05/27/24 15:00 Pulse Ox 99 05/27/24 15:00 FiO2 30 05/27/24 13:10 Intake & Output 05/26/24 05/27/24 05/27/24 18:59 06:59 18:59 Intake Total 4760.250 9090.384 1366.351 Output Total 1535 1770 1190 Balance 388.231 322.384 176.351 Weight 87.1 kg 96.2 kg Intake: IV 1186 1186 952 Acyclovir Sodium 850 mg 250 250 250 In Sodium Chloride 0.9% 250 ml @ 267 mls/hr IVPB Q8HR [facility] Rx#:[id number] Sodium Chloride 0.9% 1, 900 900 675 000 ml @ 75 mls/hr IV . [id number] [facility] Rx#:[id number] pressure bag 36 36 27 Intake, IV Titration 35.231 264.384 108.351 Amount propofoL 1,000 mg In 35.231 264.384 108.351 Empty Bag 1 bag @ 15 MCG/ KG/MIN 7.83 mls/hr IV . [id number] [id number] Rx#:[id number] Tube Feeding 552 552 276 Other 150 90 30 Output: Urine 1535 1770 1190 Other: Voiding Method Indwelling Catheter Indwelling Catheter Indwelling Catheter ABP, PAP, CO, CI - Last Documented Arterial Blood Pressure 152/69 - Exam General: Lying in bed and does not appear in acute distress. Lung: Intubated on a ventilator. Neuro: Limited. IV Propofol is off. He is drowsy but is awakeable to voice. He is following few simple commands (closing eyes, wiggling toes and attempting to move hands). - Labs CBC & Chem 7: 05/27/24 04:00 05/27/24 04:00 Labs: Abnormal Lab Results - Last 24 Hours (Table) 05/27/24 05/27/24 05/27/24 Range/Units 04:00 04:00 05:20 RBC 3.60 L (4.30-5.90) m/uL Hgb 11.8 L (13.0-17.5) gm/dL Hct 35.7 L (39.0-53.0) % Plt Count 100 L (150-450) k/uL Lymphocytes # 0.7 L (1.0-4.8) k/uL ABG HCO3 26 H (21-25) mmol/L ABG Total CO2 28 H (19-24) mmol/L ABG O2 Saturation 98.6 H (94-97) % Hemoglobin 11.3 L (13.0-17.5) gm/dL Chloride 110 H (98-107) mmol/L Creatinine 0.52 L (0.66-1.25) mg/dL Glucose 113 H (74-99) mg/dL Calcium 8.3 L (8.4-10.2) mg/dL Assessment and Plan Assessment: * Altered mental status, unclear cause. Rule out other toxic metabolic causes, rule out encephalitis. Patient had 2 routine EEGs which were negative for any seizure or discharges. Also to CT of the head which is unremarkable for any acute process--today clinically doing much better * New onset seizure versus convulsive syncope. Unclear cause. * Respiratory failure, on mechanical ventilation * Thrombocytopenia * Lactic acidosis * Vitamin B12 deficiency * Folate deficiency * Non-STEMI * CAD * History of liver disease * Chronic low back pain * Hypertension * Hyperlipidemia * Depression Plan: * Repeat CT head performed showed no acute intracranial process. * Repeat EEG performed 05/21/2024 was again abnormal due to generalized slowing o f moderate to severe degree. No changes compared to the EEG from yesterday. * Initial EEG on 05/20/2024 was abnormal due to background slowing of moderate to severe degree. This suggestive of generalized cerebral dysfunction, as can be seen with toxic metabolic encephalopathy related to diffuse structural brain abnormality. Clinical correlation is recommended. No epileptiform activity was seen. * Dr. Olvera placed him on Empirical Keppra 1000 mg IV twice daily. * Ammonia level < 9, B12 175, folate 3.50, blood cultures so far negative. Patient has been started on B12 replacement and folate replacement. * 2D echo revealed normal LV function with EF 60 to 65%. No obvious regional wall motion abnormalities. Normal left atrial size. No valvular abnormalities. * Carotid Doppler revealed less than 50% stenosis of bilateral carotid bifurcations. Antegrade flow in both vertebral arteries. * Cardiology on board for elevated cardiac enzymes. Patient is off Plavix at this time. * Patient had a low-grade temperature. Infectious disease consulted. Patient started on acyclovir and also on Zosyn. Lumbar puncture was considered to rule out encephalitis. However patient used to be on Plavix. Today he had Lumbar puncture performed by Pain specialist and pending results. * Other medical management as per IM and other specialties on board. The plan is discussed with his nurse. Time with Patient: Less than 30
[2024-05-27 17:05] LABS: Glucose,CSF 60 mg/dL (40-70); Total Protein,CSF 77 mg/dL (12-60)
[2024-05-27 17:41] LABS: Appearance,CSF Clear; CSF Tube Number 4; Nucleated Cells, CSF 0 u/L (0-5); Red Blood Cell,CSF 2 u/L (0-10)
[2024-05-28 04:34] LABS: Basophils % (A) 0 %; Eosinophils # (A) 0.1 k/uL (0-0.7); Eosinophils % (A) 2 %; HCT 33.3 % (39.0-53.0); Lymphocytes # (A) 0.6 k/uL (1.0-4.8); Lymphocytes % (A) 13 %; MCH 32.8 pg (25.0-35.0); MCHC 32.9 g/dL (31.0-37.0); MCV 99.6 fL (80.0-100.0); Mean Platelet Volume 8.8; Monocytes # (A) 0.4 k/uL (0-1.0); Monocytes % (A) 9 %; Neutrophils # (A) 3.5 k/uL (1.3-7.7); Neutrophils % (A) 74 %; RBC 3.35 m/uL (4.30-5.90); RDW 13.6 % (11.5-15.5); WBC 4.8 k/uL (3.8-10.6)
[2024-05-28 04:38] LABS: Platelet Count 92 k/uL (150-450)
[2024-05-28 04:55] LABS: African American GFR (CKD) >90 (>60 ml/min/1.73 sqM); Anion Gap 3 mmol/L; Blood Urea Nitrogen 18 mg/dL (9-20); Calcium 8.2 mg/dL (8.4-10.2); Carbon Dioxide 24 mmol/L (22-30); Chloride 111 mmol/L (98-107); Glucose 93 mg/dL (74-99); Non-African American GFR(CKD) >90 (>60 ml/min/1.73 sqM); Potassium 3.4 mmol/L (3.5-5.1); Sodium 138 mmol/L (137-145)
[2024-05-28] MEDS: POTASSIUM CHLORIDE 10 MEQ in WATER FOR INJECTION 1 100ML.BAG IVPB SCH (05:39)
--- NOTE | 2024-05-28 08:36 | XR ---
EXAMINATION TYPE: XR chest 1V portable DATE OF EXAM: 05/28/2024 Comparison: 05/27/2024 Clinical History: 64-year-old male ICU follow-up, assess lungs Findings: Interval extubation and removal of NG tube. Heart upper limits of normal in size. Interstitial densit y and peribronchial cuffing slightly increased. No rhiannon consolidation or pleural effusion. Chronic h ealed fracture deformity left mid clavicular shaft. Impression: Interstitial density and peribronchial cuffing appears minimally increased. Consider bronchitis or mi ld pulmonary vascular congestion. [facility], , 05/28/2024 8:33 AM
--- NOTE | 2024-05-28 09:58 | P.PN ---
Subjective Progress Note Date: 05/28/24 Principal diagnosis: Respiratory failure. Patient is a 64-year-old male with past medical history significant for coronary artery disease with previous PCI/stent, syncope, hypertension, hyperlipidemia, among other things. Patient is currently intubated to the mechanical ventila [facility], unable to provide any information for HPI. Patient presented emergency department early this morning. Apparently, family heard the patient fall from a different room. They found him on the floor shaking with reported seizure-like activity. When EMS arrived patient was confused and combative. They did give 10 mg of IM Versed. On arrival to the emergency department, patient was intubated by the ER provider. He is underwent an extensive workup. CT of the brain and C-spine did not show any acute intracranial hemorrhage, no midline shift or mass effect. No C-spine fracture or subluxation. Apparently, the patient was having nausea and vomiting and fever. A CT of the chest abdomen and pelvis did not show obvious saddle PE. No acute intra-abdominal process. There was some abdominal wall thickening of the sigmoid colon, likely from chronic diverticulitis. Incidentally, a 10 mm nonobstructive calculus seen in the mildly dilated right renal pelvis. Patient remains in the emergency department on my evaluation, in trauma bay 2. Remains intubated mechanical ventilator with current ventilator settings including assist-control, respiratory rate 18, tidal volume 450, FiO2 50%, PEEP of 5. Postintubation ABG includes a PaO2 of greater than 420, pCO2 of 40, and pH of 7.3. This was done on a FiO2 of 100%. He is on propofol currently infusing at 25 mcg/kg/min. Synchronous with current ventilator settings. Fentanyl is also infusing at 2 mcg/kg/h. Heparin infusing per protocol. Patient did have some elevated troponins on presentation of the 0.07 and 0.09 respectively. EKG: Sinus tachycardia, rate 101 bpm, no obvious acute ischemic changes. Body temperature now hypothermic, currently 36 C with Porsha hugger on, heart rate 83 bpm, blood pressure normotensive at 105/71 mmHg, SpO2 98%. CBC: WBC count 13.5, hemoglobin 17, hematocrit 52.7, platelets 123. CMP: Sodium 137, potassium 4.2, chloride 105, serum bicarb 12, BUN 28, creatinine 0.8, glucose 144. Lactic elevated at 9.5. LFTs unremarkable. Patient did have a fever of 100 degrees on arrival to the emergency department. Was given dose of cefepime. UA not very remarkable for infection, rare bacteria. Urine drug screen positive for opiates, benzodiazepines, marijuana. Serum alcohol level less than 10. Patient was loaded with Keppra in the emergency department. No further seizure-like activity noted. Patient was evaluated today on 05/21/2024. Remains in the ICU, intubated and mechanically ventilated, patient remains on antibiotics remains on seizure medications he is on assist-control rate of 18 tidal volume 450 FiO2 40% and PEEP of 5 ABG showed a pO2 of 120 pCO2 36 pH of 7.42 hands his FiO2 was cut down to 35%. Patient became extremely agitated last night and early this morning, and he was not mentally appropriate, hence required more sedation to be able to ventilating properly we had to increase his Versed to 5 mg/h he remains on propofol at 45 mcg/kg/min. Patient also spiked a temp yesterday, and neurology is likely to recommend lumbar puncture on this patient today. His EEG showed mostly slowing activity but no seizures. Patient is maintained on Keppra his carotid studies are negative his echocardiogram showed good LV function with ejection fraction of 60 to 65%, no significant valvular heart disease. I was planning to consider weaning on this patient today, however with his present condition this is placed on hold. On admission patient was placed on Unasyn for possible aspiration pneumonia, chest x-ray today is reassuring. Minimal atelectasis no clear-cut evidence of pneumonia. However considering his intermittent fevers, will continue on Unasyn for now. And again the patient may require lumbar puncture todayWBC count today is 8 hemoglobin is 13.3 electrolytes are normal potassium is a bit low at 3.5, Today on 05/22/2024, remains in the ICU, intubated and mechanically ventilated. No lumbar puncture was done for some reason, however the patient antibiotics were adjusted seen by infectious disease and now he is covered with acyclovir and Zosyn. He was on Unasyn initially. Patient remains on mechanical ventilation, assist-control rate of 18 tidal volume 450 FiO2 35% and PEEP of 5 ABG showed a pO2 of 102 pCO2 34 pH of 7.46. Remains on Versed at 6 mg/h propofol at 50 mcg/kg/min IV fluid 75 cc/h of 0.9 normal saline. Patient is now off Plavix, apparently the lumbar puncture will not be done until he is off Plavix for 5 days. Chest x-ray showed minimal basilar atelectasis especially of the left base no clear-cut evidence of pneumonia. EEG showed generalized slowing of moderate to severe degree. Suggestive of generalized cerebral dysfunction. No definite seizure focus. CBC is relatively normal basic metabolic profile is relatively normal renal profile is normal Patient was evaluated today on 05/23/2024, remains in the ICU, intubated and mechanically ventilated. On assist-control rate of 18 tidal volume 450 FiO2 35% and PEEP of 5 ABG showed a pO2 of 95 pCO2 38 pH of 7.43, hence did not recommend any change in ventilator settings. Patient remains encephalopathic, when he went off propofol for a brief period of time today, patient remained unresponsive to any stimuli, gets agitated easily, no purposeful movement, patient has upward gaze deviation of his eyes, remains on propofol at 30 and he is on enteral feeding in the form of vital AF 1.243/43 at 75 cc/h. His procalcitonin level is normal at 0.12 patient was seen by infectious disease and seen by neurology, and the plan is to have lumbar puncture on this patient tomorrow. Chest x-ray showed mostly retrocardiac infiltrate and small left pleural effusion WBC 6.4 hemoglobin 12.1 basic metabolic profile is normal renal profile is normal Progress note dated May 24, 2024. 64-year-old male who was admitted back on May 20. He apparently had a fall, had evidence of fever, and elevated troponins. The patient came to the intensive care unit on May 20, and was intubated on May 20. Since that time, he has been evaluated for possible encephalopathy. The lumbar puncture is planned for tomorrow. The patient remains on the mechanical ventilator. He is on volume assist-control, rate 18, tidal volume 450, FiO2 35% to be dropped down to 30%, and PEEP of 5. Blood gases show pO2 of 128, pCO2 40, pH of 7.43. His procalcitonin level was 0.12. Zosyn is discontinued. He continues on propofol at 40 mcg/kg/min, saline at 75 cc an hour, and vital AF at 43 cc an hour, which is goal. In addition to Zosyn, he is on acyclovir. We will attempt a daily interruption of sedation. Current labs include a white count 5.4, hemoglobin 11.8, macro 36.7, and platelet count of 72,000. Sodium 136, potassium 3.9, chlorides 109, CO2 24, BUN 18, creatinine 0.51. Glucose is 120. Calcium is 8.1. Blood and sputum sampling are negative. Chest x-ray shows some improved patchy bibasilar opacities. Progress note dated May 25, 2024. 64-year-old male admitted back on May 20. The patient remains in the ICU, in room 258. The patient remains on mechanical ventilator. Ventilator settings include volume assist-control, rate 18, tidal volume 450, FiO2 30%, PEEP of 5. Blood gases show pO2 of 62, pCO2 38, pH is 7.45. The patient remains on propofol at 50 mcg/kg/min, saline at 75 cc an hour, and vital AF at 46 cc an hour, which is goal. The patient had an uneventful night. He did relatively well yesterday on his daily interruption of sedation and spontaneous breathing trial, although he had copious secretions. White count 5.6, hemoglobin 12.1, hematocrit 36.6, platelet count 89,000. Sodium is 137, potassium 4.1, chlorides 110, CO2 25, BUN 19, creatinine 0.48. Calcium is 8.1. Glucose is 103. Microbiologic studies are thus far negative. Chest x-ray shows improved aeration of both lung veliz. Progress note dated May 26, 2024. 64-year-old male admitted back on May 20, remains in the intensive care unit, room 258. The patient remains on mechanical ventilator. He is on volume assist-control, rate 18, tidal volume 450, FiO2 30%, PEEP of 5. Blood gases show pO2 of 127, pCO2 39, pH is 7.43. The patient is getting saline at 75 cc an hour, and vital tube feedings at 36 cc an hour, which is goal. White count is 5.1, hemoglobin 11.6, hematocrit 34.8, and platelet count 91,000. Sodium 136, potassium 3.8, chlorides 111, CO2 25, BUN 22, and creatinine 0.52. Chest x-ray shows some mild interstitial prominence. The chest x-ray is largely unchanged. Progress note dated May 27, 2024. 64-year-old male seen today in room 258. The patient remains on the ventilator. The patient has done poorly with his spontaneous breathing trials. The patient is on volume assist-control, rate 18, tidal volume 450, FiO2 30%, PEEP of 5. Blood gases are reasonable, with a pO2 of 104, pCO2 of 38, pH of 7.45. He is getting propofol at 50 mcg/kg/min, and vital AF at 46 cc an hour which is goal. The patient did have his lumbar puncture today. Will attempt another weaning trial on him today. White count was 5.3, hemoglobin 11.8, hematocrit 35.7, and platelet count 100,000. Sodium 139, potassium 3.9, chlorides 110, CO2 26, BUN 1 9, creatinine 0.52. Glucose was 108. Calcium is 8.3. Chest x-ray shows some volume loss on the left side. Progress note dated May 28, 2024. 64-year-old male seen today in room 260. The patient was successfully extubated yesterday, May 27. He is currently on room air. He is getting saline at 75 cc an hour. Labs include a white count 4.8, hemoglobin 11, hematocrit 33.3, and a platelet count of 92,000. Sodium 138, potassium 3.4, chlorides 111, CO2 24, BUN 18, creatinine 0.49. Calcium is 8.2. Lumbar puncture showed a protein of 77. Glucose was 60. There were 2 RBCs. Chest x-ray from May 28, shows some peribronchial cuffing, with some interstitial changes, consistent with either fluid overload or bronchitis. Objective - Vital Signs Vital signs: Vital Signs Temp 98.6 F 05/28/24 04:00 Pulse 86 05/28/24 07:00 Resp 16 05/28/24 07:00 BP 138/91 05/28/24 07:00 Pulse Ox 100 05/28/24 07:00 FiO2 30 05/27/24 13:10 Intake & Output 05/27/24 05/28/24 05/28/24 18:59 06:59 18:59 Intake Total 1928.351 802 Output Total 1615 950 200 Balance 313.351 -148 -200 Weight 95.6 kg Intake: IV 1514 802 Acyclovir Sodium 850 mg 500 In Sodium Chloride 0.9% 250 ml @ 267 mls/hr IVPB Q8HR [facility] Rx#:[id number] Potassium Chloride 10 meq 100 In Water For Injection 1 100ml.bag @ 100 mls/hr IVPB Q1HR [facility] Rx#: [id number] Sodium Chloride 0.9% 1, 975 675 000 ml @ 75 mls/hr IV . [id number] [facility] Rx#:[id number] pressure bag 39 27 Intake, IV Titration 108.351 Amount propofoL 1,000 mg In 108.351 Empty Bag 1 bag @ 15 MCG/ KG/MIN 7.83 mls/hr IV . [id number] [facility] Rx#:[id number] Tube Feeding 276 Other 30 Output: Urine 1615 950 200 Other: Voiding Method Indwelling Catheter Urinal # Voids 1 # Bowel Movements 1 ABP, PAP, CO, CI - Last Documented Arterial Blood Pressure 103/49 - Exam No acute distress, debated, sitting in the chair next to the hospital bed, on room air. HEENT examination is grossly unremarkable. Mucous membranes are moist. No oral lesions. Neck supple. Full range of motion. No adenopathy thyromegaly or neck vein distention. Cardiovascular examination reveals regular rhythm rate. S1-S2 normal. No S3 or S4. No discernible murmur noted. Lungs reveal mild scattered rhonchi. No wheezes. No crackles. Breath sounds equal. Abdomen soft bowel sounds are heard. No masses or tenderness. Extremities are intact. No cyanosis clubbing or edema. Skin is without rash or lesion. Neurologic examination is nonfocal. - Labs CBC & Chem 7: 05/28/24 04:20 05/28/24 04:20 Labs: Abnormal Lab Results - Last 24 Hours (Table) 05/27/24 05/28/24 05/28/24 Range/Units 10:29 04:20 04:20 RBC 3.35 L (4.30-5.90) m/uL Hgb 11.0 L (13.0-17.5) gm/dL Hct 33.3 L (39.0-53.0) % Plt Count 92 L (150-450) k/uL Lymphocytes # 0.6 L (1.0-4.8) k/uL Potassium 3.4 L (3.5-5.1) mmol/L Chloride 111 H (98-107) mmol/L Creatinine 0.49 L (0.66-1.25) mg/dL Calcium 8.2 L (8.4-10.2) mg/dL CSF Total Protein 77 H (12-60) mg/dL Microbiology - Last 24 Hours (Table) 05/27/24 10:29 CSF Gram Stain - Preliminary Cerebral Spinal Fluid Assessment and Plan Assessment: Acute mental status changes, of unclear etiology, improved. Respiratory failure requiring intubation/mechanical ventilation, beginning on May 20, 2024. S/P successful extubation, May 27, 2024. Metabolic encephalopathy. Rule out viral LARD REFINER infection. Acute sepsis, source not clear. Acute syncopal episode, versus seizure. History of CAD with previous PCI/stent. Hyperlipidemia. Benign essential hypertension. History of marijuana use. Plan: Plan dated May 24, 2024. The patient was admitted on 20 May. The patient was intubated on the same day. The patient had acute mental status changes, and is remains on mechanical ventilator. The FiO2 is reduced from 35%, down to 30%. Will discontinue Zosyn as the procalcitonin level is 0.12. The patient should continue on acyclovir. We will wake up the patient, and attempt a spontaneous breathing trial. He may not be ready. Additional recommendations and suggestions are forthcoming. Labs, x-rays, and medications are reviewed. We will continue nutritional support, and GI/DVT prophylaxis. LP is planned for tomorrow. Plan dated May 25, 2024. The patient is seen today in room 258. We will attempt another daily interruption of sedation, possible spontaneous breathing trial. The patient is scheduled to have a lumbar puncture today. Antibiotics in the form of Zosyn were discontinued yesterday, because his procalcitonin level was normal. He continues on acyclovir for presumed viral encephalopathy. Labs, x-rays, and all medications are reviewed. We will continue to follow make recommendations along the way. Prognosis is certainly guarded. The patient remains on the ventilator. Yesterday, he did well on a spontaneous breathing trial, save for copious secretions. Plan dated May 26, 2024. We will attempt another interruption of sedation, and spontaneous breathing trial. The patient is having significant secretions. Labs, x-rays, medications are reviewed. Lumbar puncture has not yet been done, because the platelet count is below 100,000. The patient continues on acyclovir. Cultures are thus far negative. We will continue to follow the patient, make recommendations along the way. Prognosis is guarded. Plan dated May 27, 2024. The patient will have another attempt at a spontaneous breathing trial. If he fails, we will opt for a tracheostomy and feeding tube. Labs, x-rays, and medications are reviewed. Blood gases show pO2 104, pCO2 of 38, pH is 7.45. The patient is on propofol at 50 mcg/kg/min. Patient did have a lumbar puncture today. We will continue to follow make recommendations along the way. Prognosis is guarded. Plan dated May 28, 2024. The patient is doing much better. He was extubated yesterday. The patient appears much more awake and alert. He is on room air. The patient is receiving IV fluids in the form of saline at 75 cc an hour. Labs, x-rays, and medications are reviewed. If the patient remains stable he can be transferred to the general medical floor. CSF fluid, appears to be benign. We will continue to follow. Time with Patient: Less than 30
[2024-05-28 11:51] VITALS: BMI 26.3
--- NOTE | 2024-05-28 12:52 | P.PN ---
Subjective Progress Note Date: 05/28/24 I am following-up with patient and he was extubated yesterday and today is sitting in a recliner chair and per nurse is doing better. Patient was drowsy but denies of any headache and could not tell me if he had any deficits. Objective - Vital Signs Vital signs: Vital Signs Temp 98.6 F 05/28/24 04:00 Pulse 98 05/28/24 12:00 Resp 17 05/28/24 12:00 BP 104/71 05/28/24 12:00 Pulse Ox 98 05/28/24 12:00 FiO2 30 05/27/24 13:10 Intake & Output 05/27/24 05/28/24 05/28/24 18:59 06:59 18:59 Intake Total 1928.351 802 500 Output Total 1615 950 675 Balance 313.351 -148 -175 Weight 95.6 kg 95.6 kg Intake: IV 1514 802 500 Acyclovir Sodium 850 mg 500 150 In Sodium Chloride 0.9% 250 ml @ 267 mls/hr IVPB Q8HR [facility] Rx#:[id number] Potassium Chloride 10 meq 100 200 In Water For Injection 1 100ml.bag @ 100 mls/hr IVPB Q1HR [facility] Rx#: [id number] Sodium Chloride 0.9% 1, 975 675 150 000 ml @ 75 mls/hr IV . [id number] [facility] Rx#:[id number] pressure bag 39 27 Intake, IV Titration 108.351 Amount propofoL 1,000 mg In 108.351 Empty Bag 1 bag @ 15 MCG/ KG/MIN 7.83 mls/hr IV . [id number] [facility] Rx#:[id number] Tube Feeding 276 Other 30 Output: Urine 1615 950 675 Other: Voiding Method Indwelling Catheter Urinal # Voids 1 # Bowel Movements 1 ABP, PAP, CO, CI - Last Documented Arterial Blood Pressure 103/49 - Exam General: Sitting up in a recliner chair and is not in acute distress. Neuro: Drowsy but is awakeable. Is oriented to self, place and correctly stated the current year but stated the month is September. Is following simple commands. No aphasia. No facial weakness. No dysathria. Motor: Is limited but lifted upper above gravity and appears symmetrically and lifted lowers above gravity. - Labs CBC & Chem 7: 05/28/24 04:20 05/28/24 04:20 Labs: Abnormal Lab Results - Last 24 Hours (Table) 05/21/24 05/27/24 05/28/24 Range/Units 12:56 10:29 04:20 RBC 3.35 L (4.30-5.90) m/uL Hgb 11.0 L (13.0-17.5) gm/dL Hct 33.3 L (39.0-53.0) % Plt Count 92 L (150-450) k/uL Lymphocytes # 0.6 L (1.0-4.8) k/uL Potassium (3.5-5.1) mmol/L Chloride (98-107) mmol/L Creatinine (0.66-1.25) mg/dL Calcium (8.4-10.2) mg/dL Vitamin B6 <2 L (5-50) ug/L CSF Total Protein 77 H (12-60) mg/dL 05/28/24 Range/Units 04:20 RBC (4.30-5.90) m/uL Hgb (13.0-17.5) gm/dL Hct (39.0-53.0) % Plt Count (150-450) k/uL Lymphocytes # (1.0-4.8) k/uL Potassium 3.4 L (3.5-5.1) mmol/L Chloride 111 H (98-107) mmol/L Creatinine 0.49 L (0.66-1.25) mg/dL Calcium 8.2 L (8.4-10.2) mg/dL Vitamin B6 (5-50) ug/L CSF Total Protein (12-60) mg/dL Microbiology - Last 24 Hours (Table) 05/27/24 10:29 CSF Gram Stain - Preliminary Cerebral Spinal Fluid Assessment and Plan Assessment: * Altered mental status, unclear cause. Probable toxic metabolic causes. CSF study is negative and nulceated cells is 0. Patient had 2 routine EEGs which were negative for any seizure or discharges. Also had 2 CT of the head which is unremarkable for any acute process--clinically better. * New onset seizure versus convulsive syncope. Unclear cause. * Respiratory failure, on mechanical ventilation--extubated * Thrombocytopenia * Lactic acidosis * Vitamin B12 deficiency * Folate deficiency * Non-STEMI * CAD * History of liver disease * Chronic low back pain * Hypertension * Hyperlipidemia * Depression Plan: * Repeat CT head performed showed no acute intracranial process. * Repeat EEG performed 05/21/2024 was again abnormal due to generalized slowing of moderate to severe degree. No changes compared to the EEG from yesterday. * Initial EEG on 05/20/2024 was abnormal due to background slowing of moderate to severe degree. This suggestive of generalized cerebral dysfunction, as can be seen with toxic metabolic encephalopathy related to diffuse structural brain abnormality. Clinical correlation is recommended. No epileptiform activity w as seen. * Dr. Olvera placed him on Empirical Keppra 1000 mg IV twice daily. * Ammonia level < 9, B12 175, folate 3.50, blood cultures so far negative. Patient has been started on B12 replacement and folate replacement. * Vitamin B 6: <2, so started on 50mg daily and within 4 weeks recommend repeat level. * 2D echo revealed normal LV function with EF 60 to 65%. No obvious regional wall motion abnormalities. Normal left atrial size. No valvular abnormalities. * Carotid Doppler revealed less than 50% stenosis of bilateral carotid bifurcations. Antegrade flow in both vertebral arteries. * Cardiology on board for elevated cardiac enzymes. Patient is off Plavix at this time. * Patient had a low-grade temperature. Infectious disease consulted. Patient started on acyclovir and also on Zosyn. CSF study on 05/27/2024: clear, colorless, 0 nucleated cells, 60 glucose and 77 protein. * Lyme is negative. HSI 1 IgG ab is positive while II is negative. RPR is non reactive. * Other medical management as per IM and other specialties on board. The plan is discussed with his nurse. Time with Patient: Less than 30
--- NOTE | 2024-05-28 14:43 | P.PN ---
Subjective Progress Note Date: 05/28/24 Principal diagnosis: Reason for follow-up is fever question of encephalitis Patient is a 64-year-old male with a past medical history significant for coronary disease reflux hypertension MD, patient was brought into the hospital with an episode of nausea vomiting agitation and seizure-like activity he did have low-grade fever got elevated to protect his airways. On today's evaluation that is 05/28/2024, Patient did have a low-grade fever of 99.9 F last night however the patient is afebrile this morning patient has been extubated yesterday and is currently breathing comfortably on room air denies having any chest pain or shortness with occasional cough no vomiting or diarrhea has been reported. Patient white count is 4.8, creatinine 0.49 did have LP completed yesterday which was clear and colorless 77 glucose normal, HSV DNA by PCR is negative Objective - Vital Signs Vital signs: Vital Signs Temp 98.6 F 05/28/24 04:00 Pulse 104 H 05/28/24 14:00 Resp 18 05/28/24 14:00 BP 104/71 05/28/24 12:00 Pulse Ox 98 05/28/24 12:00 FiO2 30 05/27/24 13:10 Intake & Output 05/27/24 05/28/24 05/28/24 18:59 06:59 18:59 Intake Total 1928.351 802 650 Output Total 1615 950 675 Balance 313.351 -148 -25 Weight 95.6 kg 95.6 kg Intake: IV 1514 802 650 Acyclovir Sodium 850 mg 500 150 In Sodium Chloride 0.9% 250 ml @ 267 mls/hr IVPB Q8HR [facility] Rx#:[id number] Potassium Chloride 10 meq 100 200 In Water For Injection 1 100ml.bag @ 100 mls/hr IVPB Q1HR [facility] Rx#: [id number] Sodium Chloride 0.9% 1, 975 675 300 000 ml @ 75 mls/hr IV . [id number] [facility] Rx#:[id number] pressure bag 39 27 Intake, IV Titration 108.351 Amount propofoL 1,000 mg In 108.351 Empty Bag 1 bag @ 15 MCG/ KG/MIN 7.83 mls/hr IV . [id number] [facility] Rx#:[id number] Tube Feeding 276 Other 30 Output: Urine 1615 950 675 Other: Voiding Method Indwelling Catheter Urinal # Voids 1 # Bowel Movements 1 ABP, PAP, CO, CI - Last Documented Arterial Blood Pressure 103/49 - Exam GENERAL DESCRIPTION: An elderly male up in the chair in no distress RESPIRATORY SYSTEM: Unlabored breathing , decreased breath sounds at bases HEART: S1 S2 regular rate and rhythm , ABDOMEN: Soft , no tenderness EXTREMITIES: No edema feet - Labs CBC & Chem 7: 05/28/24 04:20 05/28/24 04:20 Labs: Abnormal Lab Results - Last 24 Hours (Table) 05/21/24 05/27/24 05/28/24 Range/Units 12:56 10:29 04:20 RBC 3.35 L (4.30-5.90) m/uL Hgb 11.0 L (13.0-17.5) gm/dL Hct 33.3 L (39.0-53.0) % Plt Count 92 L (150-450) k/uL Lymphocytes # 0.6 L (1.0-4.8) k/uL Potassium (3.5-5.1) mmol/L Chloride (98-107) mmol/L Creatinine (0.66-1.25) mg/dL Calcium (8.4-10.2) mg/dL Vitamin B6 <2 L (5-50) ug/L CSF Total Protein 77 H (12-60) mg/dL 05/28/24 Range/Units 04:20 RBC (4.30-5.90) m/uL Hgb (13.0-17.5) gm/dL Hct (39.0-53.0) % Plt Count (150-450) k/uL Lymphocytes # (1.0-4.8) k/uL Potassium 3.4 L (3.5-5.1) mmol/L Chloride 111 H (98-107) mmol/L Creatinine 0.49 L (0.66-1.25) mg/dL Calcium 8.2 L (8.4-10.2) mg/dL Vitamin B6 (5-50) ug/L CSF Total Protein (12-60) mg/dL Microbiology - Last 24 Hours (Table) 05/27/24 10:29 CSF Gram Stain - Preliminary Cerebral Spinal Fluid Assessment and Plan (1) Acute encephalopathy Current Visit: Yes Status: Acute Code(s): G93.40 - ENCEPHALOPATHY, UNS PECIFIED SNOMED Code(s): 26942123 (2) Fever Current Visit: Yes Status: Acute Code(s): R50.9 - FEVER, UNSPECIFIED SNOMED Code(s): 032377185 Plan: 1patient presented to hospital with rigors and chills mental status changes and apparently the patient did have significant vomiting the day before presentation to the hospital and did have extensive workup no significant finding except diverticulitis reported by the radiologist on the CT however keeping in mind significant mental status changes agitation combativeness and fever will point was possible encephalitis with a question of possible herpes versus West Nile in the differential, and will also cover for possible component of aspiration pneumonitis/diverticulitis 2-LP has been completed did have a protein of 77 glucose normal WBC normal HSV DNA by PCR negative 3-We will discontinue acyclovir as the HSV DNA PCR is negative waiting for West Nile serology on CSF Dictation was produced using [employer] dictation software. please excuse any grammatical, word or spelling errors. Time with Patient: Less than 30
[2024-05-28] MEDS: PYRIDOXINE 50 MG TAB PO SCH (15:05)
[2024-05-28] MEDS ORDERED: ZINC OXIDE PASTE (Z-GUARD) 1 APPLIC TOPICAL PRN (15:23)
[2024-05-28] MEDS: ASPIRIN 81 MG PO SCH (18:40)
--- NOTE | 2024-05-28 21:50 | P.PN ---
Subjective Progress Note Date: 05/28/24 HISTORY OF PRESENT ILLNESS: 64-year-old one of my office patient for many years with active medical history of CAD post PCI and stent placement of the RCA back in October 2022, history of chronic clinical hepatitis with early cirrhosis, history of chronic lower back pain with spinal stenosis, hypertension, hyperlipidemia, hyperglycemia, chronic lower back pain, recurrent pancreatitis, chronic history of neuropathy of the lower extremity, chronic kidney disease stage III, with history of BPH mild anxiety and edema who brought to the emergency department by EMS that patient apparently through the day developed to have severe nausea vomiting with recurrent abdominal pain according family heard stump with falling found him shaking and having seizure-like activity on the floor EMS were called to the scene when arrived found to have confused and combative they gave him 10 mg of Versed which made him very calm had no further seizure activity at the time. At the time of his arrival to the emergency department patient was very confused combative hypoxic and having worsening symptoms and that being in intubated and kept on mechanical ventilation and on sedation. At that point in the ER ended up doing CT of the brain and C-spine did not show any acute intracranial hemorr brando or abnormality and no midline shift, C-spine failed to show any fracture or subluxation. CT of the abdomen and pelvis did not show any obvious saddle pulmonary embolism no acute intracranial abdominal process was seen slight some abdominal wall thickening in the sigmoid colon most likely from chronic diverticulitis and incidental 10 mm of nonobstructive calculus within the mid dilated right renal pelvis. Patient was sedated on mechanical ventilation In the emergency department was giving cefepime UA was positive at the time drug screen was positive for opiates benzodiazepine and marijuana which patient taking medication and admitted taking marijuana every so often. Risk [facility] and given duration patient be admitted to the ICU. 05/21/2024: Patient still intubated on mechanical ventilation in the ICU he is extremely agitated when trying to back off sedation, still with all the collected information from family seems like he had seizure EEG did not show any seizure activity at this point. With his low-grade temperature and not finding any source of infection or reason for his symptoms neurology is leaning toward having to do lumbar puncture for collection of spinal fluid for further analysis problem the patient had last dose of antiplatelet agent within the last 4 days which will be a close this time to be able to do LP will be around Friday next week. Meanwhile further recommendation by infectious disease for other infection specially infectious process like Lyme or other pathogen might be the source stomach not been found out. Echocardiogram was performed showed good ejection fraction with no valvular heart disease. Antibiotic was changed by infectious disease to Zosyn from cefepime. Laboratory value with white blood cell is down to 8000 no anemia urine test still showing some RBC more than WBC with large amount of blood and trace bacteria. Chest x-ray shows no acute cardiopulmonary process. 05/22/2024: Patient remain on mechanical ventilation, herpes antibody type I positive patient was started on acyclovir, antibiotic was switched to Zosyn as well. Repeat chest x-ray today still negative with no sign of aspiration or infection. Data been collected on Lyme and West Nile. Neurology still believe having to do LP will be valuable data is not marciano be done till Friday based on the last day he had antiplatelet agent which will make it safer by Friday only. Further management and finding including no fever at this point blood pressure and vitals are stable the patient is still not weanable of mechanical ventilation he is agitated when back off on sedation. 05/23/2024: Still sedated on mechanical ventilation, labs from this morning with white blood cell 6.4 normal kidney function, blood sugar running in the low 100s. Chest x-ray has been showing slight haziness in the right lower lobe. Apparently reviewed from infectious disease believe this is still can be an infectious process combination of either diverticulitis or aspiration pneumonia or a combination of both also the necessity to do lumbar puncture in last day of Plavix was 05/20/2024 waiting at least till 05/25/2024 which will be on Friday. 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 Still planning to do LP but not till Friday. Patient backing off on sedation he become quite agitated and not comfortable start thrashing everything around him making it not easy so far he still on mechanical ventilation. 05/24/2024: Patient remains on mechanical ventilation, hemodynamically still stable with pulse oximetry and FiO2 of 35 percentile still at 98%, laboratory value does not show any major abnormality, chest x-ray still shows mostly clear lung with slight haziness on the right basal mostly similar to obesity with slight aspiration. Currently no change on blood panel done for patient still on Zosyn and acyclovir waiting for aspiration pneumonia and diverticulitis his testing for West Nile still pending, Lyme test is not back yet he has herpes simplex 1 serology positive and treated with acyclovir. Patient be going for lumbar puncture tomorrow the earliest to allow enough time while on antiplatelet agent not to have any major impact with the test itself. At this stage and again patient should have probably feeding tube should start enteral feeding not wait any longer continue management for seizure as well as recommended by neurology. 05/25/2024: Patient still on mechanical ventilation still sedated not been able to wean him off vent currently, lumbar puncture is planned today the earliest. Procalcitonin apparently has been low at 0.12 and pulmonary are think about quitting Zosyn he will be kept on acyclovir as of now. Lyme antibody came back negative. He is FiO2 is with use down to 30% but yesterday successful, lab from today showing white blood cell of 5.6 hemoglobin 12.1 hematocrit 36.6 still have mild thrombocytopenia with 89 platelet count, blood sugar still in the low 100. Chest x-ray repeat does not show any sign of infiltrate or haziness the fact bronchial shadow looks even negative for bronchitis. Troponin was mildly elevated but patient does not have any sign of reduced ejection fraction to indicate acute DC, apparently cardiology decided to discontinue Plavix permanently and to start him on aspirin following his lumbar puncture still holding off on any anticoagulation specially heparin and Lovenox based on his HIT. 05/26/2024: Still resting comfortably on mechanical ventilation still sedated, review his vitals and laboratory remain stable with temperature is marginal at 99.2 blood pressure 150/88 with FiO2 30 percentile pulse ox running around 96%. Lab value showing white blood cell of 5.1 with normal hemoglobin platelet count up to 91,000 with improving thrombocytopenia, ABG still showing PaO2 of 127 creatinine 0.52 GFR above 90. His urine output remained good. He still on propofol of 50 mcg and sedated diminished backing off sedation he is thrashing and extremely anxious and agitated. EEG apparently was done did not show any seizure activity lumbar puncture apparently scheduled for Friday instead of Friday. Which will be done tomorrow meanwhile his continue to be cancer his altered mental status related to toxic metabolic and possible encephalitis remain critically on mechanical ventilation current condition. 05/27/2024: He is remain on the ventilator still on sedation, platelet count today are up to 100,000 will be safe for anesthesia to do lumbar puncture for collection of spinal fluid for analysis. Otherwise with pulmonary probably still working for some weaning parameter patient apparently tolerate the holiday vent for about 15 minutes and then started having more problem. Chest x-ray today shows slight increased congestion mostly vascular and mostly on the right side which patient remain on treatment management for it. Despite trying to wean him off the vent and doing lumbar puncture is no other ID at this point there is no new pathogen diagnosed with culture and into the early next week patient probably required to go into tracheostomy and PEG tube in the meanwhile he still been fed via NG tube. 05/28/2024: Patient was extubated successfully yesterday he is currently on room air and ended up having lumbar puncture done which showed protein slightly elevated 77 with glucose 60 with 2 RBC only, herpes simplex was negative repeat chest x-ray showing possibility of bronchitis versus fluid overload. Platelet count down to 92,000 today with his current thrombocytopenia his kidney function still good. Second brain CAT scan earlier but no change consistent with any neuro he had convulsion episodes still on Keppra prophylaxis and has been doing better. Cognitive voice knowing patient that well he is awake alert he knows why was today knows a place still slightly confused about time which is expected with the days he was intubated for with his sedation. Mobility and activity [place] patient still debilitated will probably require gradual help with physical therapy and eventually might benefit from going to inpatient rehab. REVIEW OF SYSTEMS: CONSTITUTIONAL: Sedated on mechanical ventilation. EYES: No icterus sclerae, no conjunctivitis. EARS, NOSE, MOUTH, THROAT, and FACE: No sore throat, lymphadenopathy, carotid bruits or deformity. ET tube. RESPIRATORY: No SOB cough or wheezes. CARDIOVASCULAR: Intubated. No obvious complaint of chest pain or angina at times despite elevated troponin. GASTROINTESTINAL: Soft positive bowel sounds slight discomfort in the left lower quadrant area and right upper quadrant area as well no rebound or rigidity. GENITOURINARY: Negative for Hematuria or UTI, no kidney stones. INTEGUMENT/BREAST: Negative for any muscular injury with mild osteoarthritis.. HEMATOLOGIC/LYMPHATIC: Negative for bleed or purpura. MUSCULOSKELTAL: Negative for Myalgia or arthralgia. NEURLOGICAL: Sedated anything in ventilation. BEHAVIORAL/PSYCH: Negative. ENDOCRINE: Negative. PHYSICAL EXAMINATION: General Appearance: Sedated on mechanical ventilation with a ET tube in place. Neck HEENT: Supple, no lymphadenopathy, no thyroid enlargement, no carotid bruits. Lungs: Decreased breath sound bilaterally fine rhonchi mild expiratory wheezes. Chest Wall: Decreased expansion with deep inspiration no tenderness and no deformity was found on exam, no costochondral pain or discomfort. Heart: Regular rate and rhythm, S1, S2 normal, no murmur, rub or gallop. Back: Symmetric, no curvature, ROM normal, no CVA tenderness. Abdomen: Soft with slight distention and slight left lower quadrant and mid abdominal region discomfort with no rebound or rigidity. Extremities: Extremities normal, atraumatic, no cyanosis or edema. Pulses: 2+ and symmetric. Skin: Skin color, texture, tugor normal, no rashes or lesions. Neurologic: Sedated on mechanical ventilation. ASSESSMENT AND PLAN: _Hypoxic encephalopathy: Most likely when patient had his original episode had m ore hypoxia than expected longer than expected and probably have an impact on was going on with his outcome at this point. Patient might require longer-term vent management try to wean him off at some point. _Altered mental status: Most likely secondary to seizure, could be encephalopathy mostly metabolic will try to correct underlying disease also patient might be having manage STEMI might be a cause of the problem. His lumbar puncture with analysis still negative at this point. _Seizure like activity: Negative EEG still on Keppra. No further seizure activity _Respiratory failure: Still require sedation and mechanical ventilation not been able to wean him off so far. _Infectious process mostly sepsis: Was on acyclovir for now lumbar puncture was negative patient acyclovir was stopped. _Non-STEMI: Most likely type II DC secondary to acute injury no sign of real DC and well-preserved ejection fraction on echo. _Thrombocytopenia possibly due to sepsis rule out HIT platelet count up to 92 still fluctuating slightly but stable.,000 this point and still climbing. _History of atherosclerotic heart disease: Post angioplasty and stent placement, cardiology decided to take him off Plavix permanently and just put him back on aspirin after lumbar puncture today.. _Severe GERD: Remain on proton pump inhibitor. _Nutrition: Was on enteral feeding start oral feeding gradually watch for any dysphagia. 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 _Chronic lower back pain post surgical intervention: Remain on pain meds and muscle relaxer at this point. _Gastroparesis: Has been on Protonix and Reglan in the past with good follow-up. _Hypertension: Remain on metoprolol titrate 25 mg twice a day his blood pressure still high will add smaller dose of ARB. _Hyperlipidemia: Remain on Lipitor 40 mg a day. _Chronic depression anxiety attacks has been on escitalopram 20 and alprazolam 0.5 mg twice a day. Discussion: Extubated yesterday and has been doing well on room air he is still mildly agitated at some point mildly confused but better, will increase p.o. feeding titrate physical activity and prepare hopefully for rehab. Objective - Vital Signs Vital signs: Vital Signs Temp 98.6 F 05/28/24 04:00 Pulse 89 05/28/24 11:00 Resp 15 05/28/24 11:00 BP 145/97 05/28/24 11:00 Pulse Ox 97 05/28/24 11:00 FiO2 30 05/27/24 13:10 Intake & Output 05/27/24 05/28/24 05/28/24 18:59 06:59 18:59 Intake Total 1928.351 802 425 Output Total 1615 950 450 Balance 313.351 -148 -25 Weight 95.6 kg Intake: IV 1514 802 425 Acyclovir Sodium 850 mg 500 150 In Sodium Chloride 0.9% 250 ml @ 267 mls/hr IVPB Q8HR [facility] Rx#:[id number] Potassium Chloride 10 meq 100 200 In Water For Injection 1 100ml.bag @ 100 mls/hr IVPB Q1HR [facility] Rx#: [id number] Sodium Chloride 0.9% 1, 975 675 75 000 ml @ 75 mls/hr IV . [id number] [facility] Rx#:[id number] pressure bag 39 27 Intake, IV Titration 108.351 Amount propofoL 1,000 mg In 108.351 Empty Bag 1 bag @ 15 MCG/ KG/MIN 7.83 mls/hr IV . [id number] [facility] Rx#:[id number] Tube Feeding 276 Other 30 Output: Urine 1615 950 450 Other: Voiding Method Indwelling Catheter Urinal # Voids 1 # Bowel Movements 1 ABP, PAP, CO, CI - Last Documented Arterial Blood Pressure 103/49 - Labs CBC & Chem 7: 05/28/24 04:20 05/28/24 04:20 Labs: Abnormal Lab Results - Last 24 Hours (Table) 05/21/24 05/27/24 05/28/24 Range/Units 12:56 10:29 04:20 RBC 3.35 L (4.30-5.90) m/uL Hgb 11.0 L (13.0-17.5) gm/dL Hct 33.3 L (39.0-53.0) % Plt Count 92 L (150-450) k/uL Lymphocytes # 0.6 L (1.0-4.8) k/uL Potassium (3.5-5.1) mmol/L Chloride (98-107) mmol/L Creatinine (0.66-1.25) mg/dL Calcium (8.4-10.2) mg/dL Vitamin B6 <2 L (5-50) ug/L CSF Total Protein 77 H (12-60) mg/dL 05/28/24 Range/Units 04:20 RBC (4.30-5.90) m/uL Hgb (13.0-17.5) gm/dL Hct (39.0-53.0) % Plt Count (150-450) k/uL Lymphocytes # (1.0-4.8) k/uL Potassium 3.4 L (3.5-5.1) mmol/L Chloride 111 H (98-107) mmol/L Creatinine 0.49 L (0.66-1.25) mg/dL Calcium 8.2 L (8.4-10.2) mg/dL Vitamin B6 (5-50) ug/L CSF Total Protein (12-60) mg/dL Microbiology - Last 24 Hours (Table) 05/27/24 10:29 CSF Gram Stain - Preliminary Cerebral Spinal Fluid
[2024-05-29 08:06] LABS: Basophils % (A) 0 %; Eosinophils # (A) 0.1 k/uL (0-0.7); Eosinophils % (A) 1 %; HCT 35.2 % (39.0-53.0); HGB 11.8 gm/dL (13.0-17.5); Lymphocytes # (A) 0.7 k/uL (1.0-4.8); Lymphocytes % (A) 13 %; MCH 32.7 pg (25.0-35.0); MCHC 33.4 g/dL (31.0-37.0); Mean Platelet Volume 7.7; Monocytes # (A) 0.4 k/uL (0-1.0); Monocytes % (A) 7 %; Neutrophils # (A) 4.1 k/uL (1.3-7.7); Neutrophils % (A) 76 %; Platelet Count 127 k/uL (150-450); RBC 3.59 m/uL (4.30-5.90); RDW 13.4 % (11.5-15.5); WBC 5.4 k/uL (3.8-10.6)
--- NOTE | 2024-05-29 11:03 | P.PN ---
Subjective Progress Note Date: 05/29/24 Patient is a 64-year-old male with past medical history significant for coronary artery disease with previous PCI/stent, syncope, hypertension, hyperlipidemia, among other things. Patient is currently intubated to the mechanical ventilator, unable to provide any information for HPI. Patient presented em ergency department early this morning. Apparently, family heard the patient fall from a different room. They found him on the floor shaking with reported seizure-like activity. When EMS arrived patient was confused and combative. They did give 10 mg of IM Versed. On arrival to the emergency department, patient was intubated by the ER provider. He is underwent an extensive workup. CT of the brain and C-spine did not show any acute intracranial hemorrhage, no midline shift or mass effect. No C-spine fracture or subluxation. Apparently, the patient was having nausea and vomiting and fever. A CT of the chest abdomen and pelvis did not show obvious saddle PE. No acute intra-abdominal process. There was some abdominal wall thickening of the sigmoid colon, likely from chronic diverticulitis. Incidentally, a 10 mm nonobstructive calculus seen in the mildly dilated right renal pelvis. Patient remains in the emergency department on my evaluation, in trauma bay 2. Remains intubated mechanical ventilator with current ventilator settings including assist-control, respiratory rate 18, tidal volume 450, FiO2 50%, PEEP of 5. Postintubation ABG includes a PaO2 of greater than 420, pCO2 of 40, and pH of 7.3. This was done on a FiO2 of 100%. He is on propofol currently infusing at 25 mcg/kg/min. Synchronous with current ventilator settings. Fentanyl is also infusing at 2 mcg/kg/h. Heparin infusing per protocol. Patient did have some elevated troponins on presentation of the 0.07 and 0.09 respectively. EKG: Sinus tachycardia, rate 101 bpm, no obvious acute ischemic changes. Body temperature now hypothermic, currently 36 C with Porsha hugger on, heart rate 83 bpm, blood pressure normotensive at 105/71 mmHg, SpO2 98%. CBC: WBC count 13.5, hemoglobin 17, hematocrit 52.7, platelets 123. CMP: Sodium 137, potassium 4.2, chloride 105, serum bicarb 12, BUN 28, creatinine 0.8, glucose 144. Lactic elevated at 9.5. LFTs unremarkable. Patient did have a fever of 100 degrees on arrival to the emergency department. Was given dose of cefepime. UA not very remarkable for infection, rare bacteria. Urine drug screen positive for opiates, benzodiazepines, marijuana. Serum alcohol level less than 10. Patient was loaded with Keppra in the emergency department. No further seizure-like activity noted. Patient was evaluated today on 05/21/2024. Remains in the ICU, intubated and mechanically ventilated, patient remains on antibiotics remains on seizure medications he is on assist-control rate of 18 tidal volume 450 FiO2 40% and PEEP of 5 ABG showed a pO2 of 120 pCO2 36 pH of 7.42 hands his FiO2 was cut down to 35%. Patient became extremely agitated last night and early this morning, and he was not mentally appropriate, hence required more sedation to be able to ventilating properly we had to increase his Versed to 5 mg/h he remains on propofol at 45 mcg/kg/min. Patient also spiked a temp yesterday, and neurology is likely to recommend lumbar puncture on this patient today. His EEG showed mostly slowing activity but no seizures. Patient is maintained on Keppra his carotid studies are negative his echocardiogram showed good LV function with ejection fraction of 60 to 65%, no significant valvular heart disease. I was planning to consider weaning on this patient today, however with his present condition this is placed on hold. On admission patient was placed on Unasyn for possible aspiration pneumonia, chest x-ray today is reassuring. Minimal atele ctasis no clear-cut evidence of pneumonia. However considering his intermittent fevers, will continue on Unasyn for now. And again the patient may require lumbar puncture todayWBC count today is 8 hemoglobin is 13.3 electrolytes are normal potassium is a bit low at 3.5, Today on 05/22/2024, remains in the ICU, intubated and mechanically ventilated. No lumbar puncture was done for some reason, however the patient antibiotics were adjusted seen by infectious disease and now he is covered with acyclovir and Zosyn. He was on Unasyn initially. Patient remains on mechanical ventilation, assist-control rate of 18 tidal volume 450 FiO2 35% and PEEP of 5 ABG showed a pO2 of 102 pCO2 34 pH of 7.46. Remains on Versed at 6 mg/h propofol at 50 mcg/kg/min IV fluid 75 cc/h of 0.9 normal saline. Patient is now off Plavix, apparently the lumbar puncture will not be done until he is off Plavix for 5 days. Chest x-ray showed minimal basilar atelectasis especially of the left base no clear-cut evidence of pneumonia. EEG showed generalized slowing of moderate to severe degree. Suggestive of generalized cerebral dysfunction. No definite seizure focus. CBC is relatively normal basic metabol ic profile is relatively normal renal profile is normal Patient was evaluated today on 05/23/2024, remains in the ICU, intubated and mechanically ventilated. On assist-control rate of 18 tidal volume 450 FiO2 35% and PEEP of 5 ABG showed a pO2 of 95 pCO2 38 pH of 7.43, hence did not recommend any change in ventilator settings. Patient remains encephalopathic, when he went off propofol for a brief period of time today, patient remained unresponsive to any stimuli, gets agitated easily, no purposeful movement, patient has upward gaze deviation of his eyes, remains on propofol at 30 and he is on enteral feeding in the form of vital AF 1.243/43 at 75 cc/h. His procalcitonin level is normal at 0.12 patient was seen by infectious disease and seen by neurology, and the plan is to have lumbar puncture on this patient tomorrow. Chest x-ray showed mostly retrocardiac infiltrate and small left pleural effusion WBC 6.4 hemoglobin 12.1 basic metabolic profile is normal renal profile is normal Progress note dated May 24, 2024. 64-year-old male who was admitted back on May 20. He apparently had a fall, had evidence of fever, and elevated troponins. The patient came to the intensive care unit on May 20, and was intubated on May 20. Since that time, he has been evaluated for possible encephalopathy. The lumbar puncture is planned for tomorrow. The patient remains on the mechanical ventilator. He is on volume assist-control, rate 18, tidal volume 450, FiO2 35% to be dropped down to 30%, and PEEP of 5. Blood gases show pO2 of 128, pCO2 40, pH of 7.43. His procalcitonin level was 0.12. Zosyn is discontinued. He continues on propofol at 40 mcg/kg/min, saline at 75 cc an hour, and vital AF at 43 cc an hour, which is goal. In addition to Zosyn, he is on acyclovir. We will attempt a daily interruption of sedation. Current labs include a white count 5.4, hemoglobin 11.8, macro 36.7, and platelet count of 72,000. Sodium 136, potassium 3.9, chlorides 109, CO2 24, BUN 18, creatinine 0.51. Glucose is 120. Calcium is 8.1. Blood and sputum sampling are negative. Chest x-ray shows some improved patchy bibasilar opacities. Progress note dated May 25, 2024. 64-year-old male admitted back on May 20. The patient remains in the ICU, in room 258. The patient remains on mechanical ventilator. Ventilator settings include volume assist-control, rate 18, tidal volume 450, FiO2 30%, PEEP of 5. Blood gases show pO2 of 62, pCO2 38, pH is 7.45. The patient remains on propofol at 50 mcg/kg/min, saline at 75 cc an hour, and vital AF at 46 cc an hour, which is goal. The patient had an uneventful night. He did relatively well yesterday on his daily interruption of sedation and spontaneous breathing trial, although he had copious secretions. White count 5.6, hemoglobin 12.1, hematocrit 36.6, platelet count 89,000. Sodium is 137, potassium 4.1, chlorides 110, CO2 25, BUN 19, creatinine 0.48. Calcium is 8.1. Glucose is 103. Microbiologic studies are thus far negative. Chest x-ray shows improved aeration of both lung veliz. Progress note dated May 26, 2024. 64-year-old male admitted back on May 20, remains in the intensive care unit, room 258. The patient remains on mechanical ventilator. He is on volume assist-control, rate 18, tidal volume 450, FiO2 30%, PEEP of 5. Blood gases show pO2 of 127, pCO2 39, pH is 7.43. The patient is getting saline at 75 cc an hour, and vital tube feedings at 36 cc an hour, which is goal. White count is 5.1, hemoglobin 11.6, hematocrit 34.8, and platelet count 91,000. Sodium 136, potassium 3.8, chlorides 111, CO2 25, BUN 22, and creatinine 0.52. Chest x-ray shows some mild interstitial prominence. The chest x-ray is largely unchanged. Progress note dated May 27, 2024. 64-year-old male seen today in room 258. The patient remains on the ventilator. The patient has done poorly with his spontaneous breathing trials. The patient is on volume assist-control, rate 18, tidal volume 450, FiO2 30%, PEEP of 5. Blood gases are reasonable, with a pO2 of 104, pCO2 of 38, pH of 7.45. He is getting propofol at 50 mcg/kg/min, and vital AF at 46 cc an hour which is goal. The patient did have his lumbar puncture today. Will attempt another weaning trial on him today. White count was 5.3, hemoglobin 11.8, hematocrit 35.7, and platelet count 100,000. Sodium 139, potassium 3.9, chlorides 110, CO2 26, BUN 19, creatinine 0.52. Glucose was 108. Calcium is 8.3. Chest x-ray shows some volume loss on the left side. Progress note dated May 28, 2024. 64-year-old male seen today in room 260. The patient was successfully extubated yesterday, May 27. He is currently on room air. He is getting saline at 75 cc an hour. Labs include a white count 4.8, hemoglobin 11, hematocrit 33.3, and a platelet count of 92,000. Sodium 138, potassium 3.4, chlorides 111, CO2 24, BUN 18, creatinine 0.49. Calcium is 8.2. Lumbar puncture showed a protein of 77. Glucose was 60. There were 2 RBCs. Chest x-ray from May 28, shows some peribronchial cuffing, with some interstitial changes, consistent with either fluid overload or bronchitis. The patient is seen today May 29, 2024 in follow-up on the regular medical floor. He was transferred out of the intensive care unit yesterday. He is currently sitting up in bed. Awake and alert in no acute distress. He remains quite weak and debilitated. He is maintaining good O2 saturations in the 90s on room air. He has normal saline at 75 mL/h. Cerebral spinal fluid cytology revealed no significant acute inflammation or malignancy. Cultures revealed no growth. White count 5.4. Hemoglobin 11.8. Platelets 127. He is continued on Keppra per neurology. Objective - Vital Signs Vital signs: Vital Signs Temp 98.7 F 05/29/24 07:48 Pulse 96 05/29/24 07:48 Resp 16 05/29/24 08:00 BP 132/71 05/29/24 07:48 Pulse Ox 97 05/29/24 07:48 FiO2 30 05/27/24 13:10 Intake & Output 05/28/24 05/29/24 05/29/24 18:59 06:59 18:59 Intake Total 875 590 Output Total 975 Balance -100 590 Weight 95.6 kg 77 kg Intake: IV 875 Acyclovir Sodium 850 mg 150 In Sodium Chloride 0.9% 250 ml @ 267 mls/hr IVPB Q8HR [facility] Rx#:[id number] Potassium Chloride 10 meq 200 In Water For Injection 1 100ml.bag @ 100 mls/hr IVPB Q1HR [facility] Rx#: [id number] Sodium Chloride 0.9% 1, 525 000 ml @ 75 mls/hr IV . [id number] [facility] Rx#:[id number] Oral 590 Output: Urine 975 Other: Voiding Method Urinal Urinal Bedside Commode # Voids 1 2 # Bowel Movements 1 ABP, PAP, CO, CI - Last Documented Arterial Blood Pressure 103/49 - Exam GENERAL EXAM: Alert, weak, 64-year-old male, on room air, comfortable in no apparent distress. HEAD: Normocephalic. EYES: Normal reaction of pupils, equal size. NOSE: Clear with pink turbinates. THROAT: No erythema or exudates. NECK: No masses, no JVD. CHEST: No chest wall deformity. LUNGS: Equal air entry with no crackles, wheeze, rhonchi or dullness. CVS: S1 and S2 normal with no audible murmur, regular rhythm. ABDOMEN: No hepatosplenomegaly, normal bowel sounds, no guarding or rigidity. SPINE: No scoliosis or deformity SKIN: No rashes CENTRAL NERVOUS SYSTEM: No focal deficits, tone is normal in all 4 extremities. EXTREMITIES: There is no peripheral edema. No clubbing, no cyanosis. Peripheral pulses are intact. - Labs CBC & Chem 7: 05/29/24 07:12 05/28/24 04:20 Labs: Abnormal Lab Results - Last 24 Hours (Table) 05/21/24 05/29/24 Range/Units 12:56 07:12 RBC 3.59 L (4.30-5.90) m/uL Hgb 11.8 L (13.0-17.5) gm/dL Hct 35.2 L (39.0-53.0) % Plt Count 127 L (150-450) k/uL Lymphocytes # 0.7 L (1.0-4.8) k/uL Vitamin B6 <2 L (5-50) ug/L Microbiology - Last 24 Hours (Table) 05/27/24 10:29 CSF Gram Stain - Preliminary Cerebral Spinal Fluid CSF Culture - Preliminary Assessment and Plan Assessment: Acute mental status changes, of unclear etiology, improved. Respiratory failure requiring intubation/mechanical ventilation, beginning on May 20, 2024. Recovered and on room air S/P successful extubation, May 27, 2024. Metabolic encephalopathy. Improved. Rule out viral [employer] infection. Cerebral spinal fluid cultures and cytology negative Acute sepsis, source not clear. Acute syncopal episode, versus seizure. Remains on Keppra History of CAD with previous PCI/stent. Hyperlipidemia. Benign essential hypertension. History of marijuana use. Plan: The patient was seen and evaluated Currently stable and on room air Labs and medications reviewed Remains quite debilitated Probable subacute rehab postdischarge This patient was seen independently by the pulmonary nurse practitioner addressing pulmonary issues I have personally seen and examined the patient, performed the documentation and the assessment and plan as written. Number of minutes spent on the visit: 24
--- NOTE | 2024-05-29 13:27 | CT ---
EXAMINATION TYPE: CT brain wo con DATE OF EXAM: 05/29/2024 COMPARISON: 05/23/2024 HISTORY: Fall, trauma to front yarsanism, LT side, CT DLP: 1194.10 mGycm Automated exposure control for dose reduction was used. Findings: The ventricles, basal cisterns and sulci over the convexities are within normal limits and there is n o mass effect or shift of midline structures. No abnormal density is seen throughout the brain parenchyma and there is no acute intra or extra-axia l hemorrhage. The posterior fossa including the brainstem, fourth ventricle and cerebellar pontine angles appear no rmal. Intraorbital contents appear normal and symmetric. Visualized paranasal sinuses and mastoid air cells are well aerated. There is a small focal swelling/hematoma over the left frontal bone. The calvarium is intact. IMPRESSION: 1. No acute bleed or mass effect. 2. Focal swelling/hematoma or the left frontal bone. The calvarium is intact. [facility], , 05/29/2024 1:24 PM
--- NOTE | 2024-05-29 15:03 | P.PN ---
Subjective Progress Note Date: 05/29/24 Principal diagnosis: Reason for follow-up is fever question of encephalitis Patient is a 64-year-old male with a past medical history significant for coronary disease reflux hypertension [place], patient was brought into the hospital with an episode of nausea vomiting agitation and seizure-like activity he did have low-grade fever got elevated to protect his airways. On today's evaluation that is 05/29/2024,the patient denies any fever or any chills, patient is breathing comfortably on room air, the patient denies chest pain shortness of breath and no significant cough, patient denies abdominal pain, no nausea vomiting or diarrhea. Patient mention feeling better wants to go home. Patient white count is 5.4 creatinine 0.49 Objective - Vital Signs Vital signs: Vital Signs Temp 99.0 F 05/29/24 14:10 Pulse 100 05/29/24 14:10 Resp 18 05/29/24 14:10 BP 132/74 05/29/24 14:10 Pulse Ox 99 05/29/24 14:10 FiO2 30 05/27/24 13:10 Intake & Output 05/28/24 05/29/24 05/29/24 18:59 06:59 18:59 Intake Total 875 590 Output Total 975 Balance -100 590 Weight 95.6 kg 77 kg Intake: IV 875 Acyclovir Sodium 850 mg 150 In Sodium Chloride 0.9% 250 ml @ 267 mls/hr IVPB Q8HR [facility] Rx#:[id number] Potassium Chloride 10 meq 200 In Water For Injection 1 100ml.bag @ 100 mls/hr IVPB Q1HR [facility] Rx#: [id number] Sodium Chloride 0.9% 1, 525 000 ml @ 75 mls/hr IV . [id number] [facility] Rx#:[id number] Oral 590 Output: Urine 975 Other: Voiding Method Urinal Urinal Bedside Commode # Voids 1 2 # Bowel Movements 1 ABP, PAP, CO, CI - Last Documented Arterial Blood Pressure 103/49 - Exam GENERAL DESCRIPTION: An elderly male up in the chair in no distress RESPIRATORY SYSTEM: Unlabored breathing , decreased breath sounds at bases HEART: S1 S2 regular rate and rhythm , ABDOMEN: Soft , no tenderness EXTREMITIES: No edema feet - Labs CBC & Chem 7: 05/29/24 07:12 05/28/24 04:20 Labs: Abnormal Lab Results - Last 24 Hours (Table) 05/29/24 Range/Units 07:12 RBC 3.59 L (4.30-5.90) m/uL Hgb 11.8 L (13.0-17.5) gm/dL Hct 35.2 L (39.0-53.0) % Plt Count 127 L (150-450) k/uL Lymphocytes # 0.7 L (1.0-4.8) k/uL Microbiology - Last 24 Hours (Table) 05/27/24 10:29 CSF Gram Stain - Preliminary Cerebral Spinal Fluid CSF Culture - Preliminary Assessment and Plan (1) Acute encephalopathy Current Visit: Yes Status: Acute Code(s): G93.40 - ENCEPHALOPATHY, UNSPECIFIED SNOMED Code(s): 74631993 (2) Fever Current Visit: Yes Status: Acute Code(s): R50.9 - FEVER, UNSPECIFIED SNOMED Code(s): 963204083 Plan: 1patient presented to hospital with rigors and chills mental status changes and apparently the patient did have significant vomiting the day before presentation to the hospital and did have extensive workup no significant finding except diverticulitis reported by the radiologist on the CT however keeping in mind significant mental status changes agitation combativeness and fever will point was possible encephalitis with a question of possible herpes versus West Nile in the differential, and will also cover for possible component of aspiration pneumonitis/diverticulitis 2-LP has been completed did have a protein of 77 glucose normal WBC normal HSV DNA by PCR negative, West Nile serology and CSF is pending. Patient is currently being monitored closely off antibiotic as well as antiviral discussed with admitting physician Dictation was produced using [employer] dictation software. please excuse any grammatical, word or spelling errors. Time with Patient: Less than 30
[2024-05-29] MEDS: ACETAMINOPHEN TAB 325 MG TAB PO PRN (16:03)
--- NOTE | 2024-05-29 17:43 | P.PN ---
Subjective Progress Note Date: 05/29/24 HISTORY OF PRESENT ILLNESS: 64-year-old one of my office patient for many years with active medical history of CAD post PCI and stent placement of the RCA back in October 2022, history of chronic clinical hepatitis with early cirrhosis, history of chronic lower back pain with spinal stenosis, hypertension, hyperlipidemia, hyperglycemia, chronic lower back pain, recurrent pancreatitis, chronic history of neuropathy of the lower extremity, chronic kidney disease stage III, with history of BPH mild anxiety and edema who brought to the emergency department by EMS that patient apparently through the day developed to have severe nausea vomiting with recurrent abdominal pain according family heard stump with falling found him shaking and having seizure-like activity on the floor EMS were called to the scene when arrived found to have confused and combative they gave him 10 mg of Versed which made him very calm had no further seizure activity at the time. At the time of his arrival to the emergency department patient was very confused combative hypoxic and having worsening symptoms and that being in intubated and kept on mechanical ventilation and on sedation. At that point in the ER ended up doing CT of the brain and C-spine did not show any acute intracranial hemorr brando or abnormality and no midline shift, C-spine failed to show any fracture or subluxation. CT of the abdomen and pelvis did not show any obvious saddle pulmonary embolism no acute intracranial abdominal process was seen slight some abdominal wall thickening in the sigmoid colon most likely from chronic diverticulitis and incidental 10 mm of nonobstructive calculus within the mid dilated right renal pelvis. Patient was sedated on mechanical ventilation In the emergency department was giving cefepime UA was positive at the time drug screen was positive for opiates benzodiazepine and marijuana which patient taking medication and admitted taking marijuana every so often. Risk [facility] and given duration patient be admitted to the ICU. 05/21/2024: Patient still intubated on mechanical ventilation in the ICU he is extremely agitated when trying to back off sedation, still with all the collected information from family seems like he had seizure EEG did not show any seizure activity at this point. With his low-grade temperature and not finding any source of infection or reason for his symptoms neurology is leaning toward having to do lumbar puncture for collection of spinal fluid for further analysis problem the patient had last dose of antiplatelet agent within the last 4 days which will be a close this time to be able to do LP will be around Friday next week. Meanwhile further recommendation by infectious disease for other infection specially infectious process like Lyme or other pathogen might be the source stomach not been found out. Echocardiogram was performed showed good ejection fraction with no valvular heart disease. Antibiotic was changed by infectious disease to Zosyn from cefepime. Laboratory value with white blood cell is down to 8000 no anemia urine test still showing some RBC more than WBC with large amount of blood and trace bacteria. Chest x-ray shows no acute cardiopulmonary process. 05/22/2024: Patient remain on mechanical ventilation, herpes antibody type I positive patient was started on acyclovir, antibiotic was switched to Zosyn as well. Repeat chest x-ray today still negative with no sign of aspiration or infection. Data been collected on Lyme and West Nile. Neurology still believe having to do LP will be valuable data is not marciano be done till Friday based on the last day he had antiplatelet agent which will make it safer by Friday only. Further management and finding including no fever at this point blood pressure and vitals are stable the patient is still not weanable of mechanical ventilation he is agitated when back off on sedation. 05/23/2024: Still sedated on mechanical ventilation, labs from this morning with white blood cell 6.4 normal kidney function, blood sugar running in the low 100s. Chest x-ray has been showing slight haziness in the right lower lobe. Apparently reviewed from infectious disease believe this is still can be an infectious process combination of either diverticulitis or aspiration pneumonia or a combination of both also the necessity to do lumbar puncture in last day of Plavix was 05/20/2024 waiting at least till 05/25/2024 which will be on Friday. 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 Still planning to do LP but not till Friday. Patient backing off on sedation he become quite agitated and not comfortable start thrashing everything around him making it not easy so far he still on mechanical ventilation. 05/24/2024: Patient remains on mechanical ventilation, hemodynamically still stable with pulse oximetry and FiO2 of 35 percentile still at 98%, laboratory value does not show any major abnormality, chest x-ray still shows mostly clear lung with slight haziness on the right basal mostly similar to obesity with slight aspiration. Currently no change on blood panel done for patient still on Zosyn and acyclovir waiting for aspiration pneumonia and diverticulitis his testing for West Nile still pending, Lyme test is not back yet he has herpes simplex 1 serology positive and treated with acyclovir. Patient be going for lumbar puncture tomorrow the earliest to allow enough time while on antiplatelet agent not to have any major impact with the test itself. At this stage and again patient should have probably feeding tube should start enteral feeding not wait any longer continue management for seizure as well as recommended by neurology. 05/25/2024: Patient still on mechanical ventilation still sedated not been able to wean him off vent currently, lumbar puncture is planned today the earliest. Procalcitonin apparently has been low at 0.12 and pulmonary are think about quitting Zosyn he will be kept on acyclovir as of now. Lyme antibody came back negative. He is FiO2 is with use down to 30% but yesterday successful, lab from today showing white blood cell of 5.6 hemoglobin 12.1 hematocrit 36.6 still have mild thrombocytopenia with 89 platelet count, blood sugar still in the low 100. Chest x-ray repeat does not show any sign of infiltrate or haziness the fact bronchial shadow looks even negative for bronchitis. Troponin was mildly elevated but patient does not have any sign of reduced ejection fraction to indicate acute VA, apparently cardiology decided to discontinue Plavix permanently and to start him on aspirin following his lumbar puncture still holding off on any anticoagulation specially heparin and Lovenox based on his HIT. 05/26/2024: Still resting comfortably on mechanical ventilation still sedated, review his vitals and laboratory remain stable with temperature is marginal at 99.2 blood pressure 150/88 with FiO2 30 percentile pulse ox running around 96%. Lab value showing white blood cell of 5.1 with normal hemoglobin platelet count up to 91,000 with improving thrombocytopenia, ABG still showing PaO2 of 127 creatinine 0.52 GFR above 90. His urine output remained good. He still on propofol of 50 mcg and sedated diminished backing off sedation he is thrashing and extremely anxious and agitated. EEG apparently was done did not show any seizure activity lumbar puncture apparently scheduled for Friday instead of Friday. Which will be done tomorrow meanwhile his continue to be cancer his altered mental status related to toxic metabolic and possible encephalitis remain critically on mechanical ventilation current condition. 05/27/2024: He is remain on the ventilator still on sedation, platelet count today are up to 100,000 will be safe for anesthesia to do lumbar puncture for collection of spinal fluid for analysis. Otherwise with pulmonary probably still working for some weaning parameter patient apparently tolerate the holiday vent for about 15 minutes and then started having more problem. Chest x-ray today shows slight increased congestion mostly vascular and mostly on the right side which patient remain on treatment management for it. Despite trying to wean him off the vent and doing lumbar puncture is no other ID at this point there is no new pathogen diagnosed with culture and into the early next week patient probably required to go into tracheostomy and PEG tube in the meanwhile he still been fed via NG tube. 05/28/2024: Patient was extubated successfully yesterday he is currently on room air and ended up having lumbar puncture done which showed protein slightly elevated 77 with glucose 60 with 2 RBC only, herpes simplex was negative repeat chest x-ray showing possibility of bronchitis versus fluid overload. Platelet count down to 92,000 today with his current thrombocytopenia his kidney function still good. Second brain CAT scan earlier but no change consistent with any neuro he had convulsion episodes still on Keppra prophylaxis and has been doing better. Cognitive voice knowing patient that well he is awake alert he knows why was today knows a place still slightly confused about time which is expected with the days he was intubated for with his sedation. Mobility and activity [place] patient still debilitated will probably require gradual help with physical therapy and eventually might benefit from going to inpatient rehab. 05/29/2024: He is remain out of the ICU, slightly with confused with attempt to get himself out of bed to use the bathroom patient fell and slammed his left forehead CAT scan of the brain was performed shortly after shows no acute bleed focal swelling and hematoma of the left forehead only. He is lumbar puncture final is clear no infection is found including herpes simplex, infectious disease [place] that he is off antibiotics including acyclovir. Patient still on antiseizure medication. Mobility was significantly decreased patient require at least 1 person branch assistant even slightly with confusion still insist on going home with most likely does not require subacute rehab or maybe even inpatient intensive rehab. REVIEW OF SYSTEMS: CONSTITUTIONAL: Sedated on mechanical ventilation. EYES: No icterus sclerae, no conjunctivitis. EARS, NOSE, MOUTH, THROAT, and FACE: No sore throat, lymphadenopathy, carotid bruits or deformity. ET tube. RESPIRATORY: No SOB cough or wheezes. CARDIOVASCULAR: Intubated. No obvious complaint of chest pain or angina at times despite elevated troponin. GASTROINTESTINAL: Soft positive bowel sounds slight discomfort in the left lower quadrant area and right upper quadrant area as well no rebound or rigidity. GENITOURINARY: Negative for Hematuria or UTI, no kidney stones. INTEGUMENT/BREAST: Negative for any muscular injury with mild osteoarthritis.. HEMATOLOGIC/LYMPHATIC: Negative for bleed or purpura. MUSCULOSKELTAL: Negative for Myalgia or arthralgia. NEURLOGICAL: Sedated anything in ventilation. BEHAVIORAL/PSYCH: Negative. ENDOCRINE: Negative. PHYSICAL EXAMINATION: General Appearance: Sedated on mechanical ventilation with a ET tube in place. Neck HEENT: Supple, no lymphadenopathy, no thyroid enlargement, no carotid bruits. Lungs: Decreased breath sound bilaterally fine rhonchi mild expiratory wheezes. Chest Wall: Decreased expansion with deep inspiration no tenderness and no deformity was found on exam, no costochondral pain or discomfort. Heart: Regular rate and rhythm, S1, S2 normal, no murmur, rub or gallop. Back: Symmetric, no curvature, ROM normal, no CVA tenderness. Abdomen: Soft with slight distention and slight left lower quadrant and mid abdominal region discomfort with no rebound or rigidity. Extremities: Extremities normal, atraumatic, no cyanosis or edema. Pulses: 2+ and symmetric. Skin: Skin color, texture, tugor normal, no rashes or lesions. Neurologic: Sedated on mechanical ventilation. ASSESSMENT AND PLAN: _Hypoxic encephalopathy: Most likely when patient had his original episode had more hypoxia than expected longer than expected and probably have an impact on was going on with his outcome at this point. Patient might require longer-term vent management try to wean him off at some point. _Altered mental status: Most likely secondary to seizure, could be encephalopathy mostly metabolic will try to correct underlying disease also patient might be having manage STEMI might be a cause of the problem. His lumba r puncture with analysis still negative at this point. _Another fall with head trauma: Negative for bleed continue to watch patient neuro regularly. _Seizure like activity: Negative EEG still on Keppra will continue antiseizure medication after his discharge as well. _Respiratory failure: Is off sedation and mechanical ventilation does not require any oxygen anymore his respiratory failure was mostly was intubated for airway protection and was sedated and could not get him off mechanical ventilation for few days. _Infectious process mostly sepsis: He is off antibiotics all cultures are negative including his lumbar puncture at this point despite herpes antibody is positive with herpes in the LP is negative his office likely beer. _Non-STEMI: Most likely type II VA secondary to acute injury no sign of real VA and well-preserved ejection fraction on echo. _Thrombocytopenia possibly due to sepsis rule and possible HIT: Platelet count is up to 127,000 no further concern about any bleed at this point. _History of atherosclerotic heart disease: Post angioplasty and stent placement, cardiology decided to take him off Plavix permanently and just put him back on aspirin after lumbar puncture today.. _Severe GERD: Remain on proton pump inhibitor. _Nutrition: Continue supplement beside his regular meals patient does not have any dysphagia. 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 _Chronic lower back pain post surgical intervention: Remain on pain meds and muscle relaxer at this point. _Hiatal hernia and gastroparesis: Remain on Protonix and off Reglan. _Hypertension: Remain on metoprolol titrate 25 mg twice a day his blood pressure still high will add smaller dose of ARB. _Hyperlipidemia: Remain on Lipitor 40 mg a day. _Chronic depression anxiety attacks has been on escitalopram 20 and alprazolam 0.5 mg twice a day. Discussion: Patient had another head trauma, CT of the brain was done negative for bleed, will continue current management watching patient's symptoms carefully continue to do neuroexam regularly. Objective - Vital Signs Vital signs: Vital Signs Temp 98.7 F 05/29/24 07:48 Pulse 96 05/29/24 07:48 Resp 16 05/29/24 08:00 BP 132/71 05/29/24 07:48 Pulse Ox 97 05/29/24 07:48 FiO2 30 05/27/24 13:10 Intake & Output 05/28/24 05/29/24 05/29/24 18:59 06:59 18:59 Intake Total 875 590 Output Total 975 Balance -100 590 Weight 95.6 kg 77 kg Intake: IV 875 Acyclovir Sodium 850 mg 150 In Sodium Chloride 0.9% 250 ml @ 267 mls/hr IVPB Q8HR [facility] Rx#:[id number] Potassium Chloride 10 meq 200 In Water For Injection 1 100ml.bag @ 100 mls/hr IVPB Q1HR [facility] Rx#: [id number] Sodium Chloride 0.9% 1, 525 000 ml @ 75 mls/hr IV . [id number] [facility] Rx#:[id number] Oral 590 Output: Urine 975 Other: Voiding Method Urinal Urinal Bedside Commode # Voids 1 2 # Bowel Movements 1 ABP, PAP, CO, CI - Last Documented Arterial Blood Pressure 103/49 - Labs CBC & Chem 7: 05/29/24 07:12 05/28/24 04:20 Labs: Abnormal Lab Results - Last 24 Hours (Table) 05/21/24 05/29/24 Range/Units 12:56 07:12 RBC 3.59 L (4.30-5.90) m/uL Hgb 11.8 L (13.0-17.5) gm/dL Hct 35.2 L (39.0-53.0) % Plt Count 127 L (150-450) k/uL Lymphocytes # 0.7 L (1.0-4.8) k/uL Vitamin B6 <2 L (5-50) ug/L Microbiology - Last 24 Hours (Table) 05/27/24 10:29 CSF Gram Stain - Preliminary Cerebral Spinal Fluid CSF Culture - Preliminary
--- NOTE | 2024-05-30 08:07 | P.PN ---
Subjective Progress Note Date: 05/30/24 Patient is a 64-year-old male with past medical history significant for coronary artery disease with previous PCI/stent, syncope, hypertension, hyperlipidemia, among other things. Patient is currently intubated to the mechanical ventilator, unable to provide any information for HPI. Patient presented em ergency department early this morning. Apparently, family heard the patient fall from a different room. They found him on the floor shaking with reported seizure-like activity. When EMS arrived patient was confused and combative. They did give 10 mg of IM Versed. On arrival to the emergency department, patient was intubated by the ER provider. He is underwent an extensive workup. CT of the brain and C-spine did not show any acute intracranial hemorrhage, no midline shift or mass effect. No C-spine fracture or subluxation. Apparently, the patient was having nausea and vomiting and fever. A CT of the chest abdomen and pelvis did not show obvious saddle PE. No acute intra-abdominal process. There was some abdominal wall thickening of the sigmoid colon, likely from chronic diverticulitis. Incidentally, a 10 mm nonobstructive calculus seen in the mildly dilated right renal pelvis. Patient remains in the emergency department on my evaluation, in trauma bay 2. Remains intubated mechanical ventilator with current ventilator settings including assist-control, respiratory rate 18, tidal volume 450, FiO2 50%, PEEP of 5. Postintubation ABG includes a PaO2 of greater than 420, pCO2 of 40, and pH of 7.3. This was done on a FiO2 of 100%. He is on propofol currently infusing at 25 mcg/kg/min. Synchronous with current ventilator settings. Fentanyl is also infusing at 2 mcg/kg/h. Heparin infusing per protocol. Patient did have some elevated troponins on presentation of the 0.07 and 0.09 respectively. EKG: Sinus tachycardia, rate 101 bpm, no obvious acute ischemic changes. Body temperature now hypothermic, currently 36 C with Porsha hugger on, heart rate 83 bpm, blood pressure normotensive at 105/71 mmHg, SpO2 98%. CBC: WBC count 13.5, hemoglobin 17, hematocrit 52.7, platelets 123. CMP: Sodium 137, potassium 4.2, chloride 105, serum bicarb 12, BUN 28, creatinine 0.8, glucose 144. Lactic elevated at 9.5. LFTs unremarkable. Patient did have a fever of 100 degrees on arrival to the emergency department. Was given dose of cefepime. UA not very remarkable for infection, rare bacteria. Urine drug screen positive for opiates, benzodiazepines, marijuana. Serum alcohol level less than 10. Patient was loaded with Keppra in the emergency department. No further seizure-like activity noted. Patient was evaluated today on 05/21/2024. Remains in the ICU, intubated and mechanically ventilated, patient remains on antibiotics remains on seizure medications he is on assist-control rate of 18 tidal volume 450 FiO2 40% and PEEP of 5 ABG showed a pO2 of 120 pCO2 36 pH of 7.42 hands his FiO2 was cut down to 35%. Patient became extremely agitated last night and early this morning, and he was not mentally appropriate, hence required more sedation to be able to ventilating properly we had to increase his Versed to 5 mg/h he remains on propofol at 45 mcg/kg/min. Patient also spiked a temp yesterday, and neurology is likely to recommend lumbar puncture on this patient today. His EEG showed mostly slowing activity but no seizures. Patient is maintained on Keppra his carotid studies are negative his echocardiogram showed good LV function with ejection fraction of 60 to 65%, no significant valvular heart disease. I was planning to consider weaning on this patient today, however with his present condition this is placed on hold. On admission patient was placed on Unasyn for possible aspiration pneumonia, chest x-ray today is reassuring. Minimal atele ctasis no clear-cut evidence of pneumonia. However considering his intermittent fevers, will continue on Unasyn for now. And again the patient may require lumbar puncture todayWBC count today is 8 hemoglobin is 13.3 electrolytes are normal potassium is a bit low at 3.5, Today on 05/22/2024, remains in the ICU, intubated and mechanically ventilated. No lumbar puncture was done for some reason, however the patient antibiotics were adjusted seen by infectious disease and now he is covered with acyclovir and Zosyn. He was on Unasyn initially. Patient remains on mechanical ventilation, assist-control rate of 18 tidal volume 450 FiO2 35% and PEEP of 5 ABG showed a pO2 of 102 pCO2 34 pH of 7.46. Remains on Versed at 6 mg/h propofol at 50 mcg/kg/min IV fluid 75 cc/h of 0.9 normal saline. Patient is now off Plavix, apparently the lumbar puncture will not be done until he is off Plavix for 5 days. Chest x-ray showed minimal basilar atelectasis especially of the left base no clear-cut evidence of pneumonia. EEG showed generalized slowing of moderate to severe degree. Suggestive of generalized cerebral dysfunction. No definite seizure focus. CBC is relatively normal basic metabol ic profile is relatively normal renal profile is normal Patient was evaluated today on 05/23/2024, remains in the ICU, intubated and mechanically ventilated. On assist-control rate of 18 tidal volume 450 FiO2 35% and PEEP of 5 ABG showed a pO2 of 95 pCO2 38 pH of 7.43, hence did not recommend any change in ventilator settings. Patient remains encephalopathic, when he went off propofol for a brief period of time today, patient remained unresponsive to any stimuli, gets agitated easily, no purposeful movement, patient has upward gaze deviation of his eyes, remains on propofol at 30 and he is on enteral feeding in the form of vital AF 1.243/43 at 75 cc/h. His procalcitonin level is normal at 0.12 patient was seen by infectious disease and seen by neurology, and the plan is to have lumbar puncture on this patient tomorrow. Chest x-ray showed mostly retrocardiac infiltrate and small left pleural effusion WBC 6.4 hemoglobin 12.1 basic metabolic profile is normal renal profile is normal Progress note dated May 24, 2024. 64-year-old male who was admitted back on May 20. He apparently had a fall, had evidence of fever, and elevated troponins. The patient came to the intensive care unit on May 20, and was intubated on May 20. Since that time, he has been evaluated for possible encephalopathy. The lumbar puncture is planned for tomorrow. The patient remains on the mechanical ventilator. He is on volume assist-control, rate 18, tidal volume 450, FiO2 35% to be dropped down to 30%, and PEEP of 5. Blood gases show pO2 of 128, pCO2 40, pH of 7.43. His procalcitonin level was 0.12. Zosyn is discontinued. He continues on propofol at 40 mcg/kg/min, saline at 75 cc an hour, and vital AF at 43 cc an hour, which is goal. In addition to Zosyn, he is on acyclovir. We will attempt a daily interruption of sedation. Current labs include a white count 5.4, hemoglobin 11.8, macro 36.7, and platelet count of 72,000. Sodium 136, potassium 3.9, chlorides 109, CO2 24, BUN 18, creatinine 0.51. Glucose is 120. Calcium is 8.1. Blood and sputum sampling are negative. Chest x-ray shows some improved patchy bibasilar opacities. Progress note dated May 25, 2024. 64-year-old male admitted back on May 20. The patient remains in the ICU, in room 258. The patient remains on mechanical ventilator. Ventilator settings include volume assist-control, rate 18, tidal volume 450, FiO2 30%, PEEP of 5. Blood gases show pO2 of 62, pCO2 38, pH is 7.45. The patient remains on propofol at 50 mcg/kg/min, saline at 75 cc an hour, and vital AF at 46 cc an hour, which is goal. The patient had an uneventful night. He did relatively well yesterday on his daily interruption of sedation and spontaneous breathing trial, although he had copious secretions. White count 5.6, hemoglobin 12.1, hematocrit 36.6, platelet count 89,000. Sodium is 137, potassium 4.1, chlorides 110, CO2 25, BUN 19, creatinine 0.48. Calcium is 8.1. Glucose is 103. Microbiologic studies are thus far negative. Chest x-ray shows improved aeration of both lung veliz. Progress note dated May 26, 2024. 64-year-old male admitted back on May 20, remains in the intensive care unit, room 258. The patient remains on mechanical ventilator. He is on volume assist-control, rate 18, tidal volume 450, FiO2 30%, PEEP of 5. Blood gases show pO2 of 127, pCO2 39, pH is 7.43. The patient is getting saline at 75 cc an hour, and vital tube feedings at 36 cc an hour, which is goal. White count is 5.1, hemoglobin 11.6, hematocrit 34.8, and platelet count 91,000. Sodium 136, potassium 3.8, chlorides 111, CO2 25, BUN 22, and creatinine 0.52. Chest x-ray shows some mild interstitial prominence. The chest x-ray is largely unchanged. Progress note dated May 27, 2024. 64-year-old male seen today in room 258. The patient remains on the ventilator. The patient has done poorly with his spontaneous breathing trials. The patient is on volume assist-control, rate 18, tidal volume 450, FiO2 30%, PEEP of 5. Blood gases are reasonable, with a pO2 of 104, pCO2 of 38, pH of 7.45. He is getting propofol at 50 mcg/kg/min, and vital AF at 46 cc an hour which is goal. The patient did have his lumbar puncture today. Will attempt another weaning trial on him today. White count was 5.3, hemoglobin 11.8, hematocrit 35.7, and platelet count 100,000. Sodium 139, potassium 3.9, chlorides 110, CO2 26, BUN 19, creatinine 0.52. Glucose was 108. Calcium is 8.3. Chest x-ray shows some volume loss on the left side. Progress note dated May 28, 2024. 64-year-old male seen today in room 260. The patient was successfully extubated yesterday, May 27. He is currently on room air. He is getting saline at 75 cc an hour. Labs include a white count 4.8, hemoglobin 11, hematocrit 33.3, and a platelet count of 92,000. Sodium 138, potassium 3.4, chlorides 111, CO2 24, BUN 18, creatinine 0.49. Calcium is 8.2. Lumbar puncture showed a protein of 77. Glucose was 60. There were 2 RBCs. Chest x-ray from May 28, shows some peribronchial cuffing, with some interstitial changes, consistent with either fluid overload or bronchitis. The patient is seen today May 29, 2024 in follow-up on the regular medical floor. He was transferred out of the intensive care unit yesterday. He is currently sitting up in bed. Awake and alert in no acute distress. He remains quite weak and debilitated. He is maintaining good O2 saturations in the 90s on room air. He has normal saline at 75 mL/h. Cerebral spinal fluid cytology revealed no significant acute inflammation or malignancy. Cultures revealed no growth. White count 5.4. Hemoglobin 11.8. Platelets 127. He is continued on Keppra per neurology. The patient is seen today May 30, 2024 in follow-up on the regular medical floor. He is currently awake and alert resting in bed. There is a director safety council at the bedside. He did have some confusion and fell out of bed yesterday. CT scan focal swelling/hematoma of the left frontal bone. Calvarium is intact. He is maintaining good O2 saturation in the upper 90s on room air. He has been afebrile. Hemodynamically stable. Blood, sputum and cerebrospinal fluid cultures were all negative. He remains on IV Keppra. No seizure activity noted Objective - Vital Signs Vital signs: Vital Signs Temp 98.2 F 05/30/24 07:37 Pulse 89 05/30/24 07:37 Resp 16 05/30/24 07:37 BP 119/78 05/30/24 07:37 Pulse Ox 97 05/30/24 07:37 FiO2 30 05/27/24 13:10 Intake & Output 05/29/24 05/30/24 05/30/24 18:59 06:59 18:59 Intake Total 590 Output Total 850 Balance -850 590 Weight 68 kg Intake: Oral 590 Output: Urine 850 Other: Voiding Method Bedside Commode Bedside Commode # Voids 2 # Bowel Movements 1 ABP, PAP, CO, CI - Last Documented Arterial Blood Pressure 103/49 - Exam GENERAL EXAM: Alert, confused at times, 64-year-old male, on room air, in no apparent distress. HEAD: Normocephalic. Abrasion over left faith EYES: Normal reaction of pupils, equal size. NOSE: Clear with pink turbinates. THROAT: No erythema or exudates. NECK: No masses, no JVD. CHEST: No chest wall deformity. LUNGS: Equal air entry with no crackles, wheeze, rhonchi or dullness. CVS: S1 and S2 normal with no audible murmur, regular rhythm. ABDOMEN: No hepatosplenomegaly, normal bowel sounds, no guarding or rigidity. SPINE: No scoliosis or deformity SKIN: No rashes CENTRAL NERVOUS SYSTEM: No focal deficits, tone is normal in all 4 extremities. EXTREMITIES: There is no peripheral edema. No clubbing, no cyanosis. Peripheral pulses are intact. - Labs CBC & Chem 7: 05/29/24 07:12 05/28/24 04:20 Labs: Abnormal Lab Results - Last 24 Hours (Table) 05/29/24 Range/Units 07:12 RBC 3.59 L (4.30-5.90) m/uL Hgb 11.8 L (13.0-17.5) gm/dL Hct 35.2 L (39.0-53.0) % Plt Count 127 L (150-450) k/uL Lymphocytes # 0.7 L (1.0-4.8) k/uL Microbiology - Last 24 Hours (Table) 05/27/24 10:29 CSF Gram Stain - Preliminary Cerebral Spinal Fluid CSF Culture - Preliminary Assessment and Plan Assessment: Acute mental status changes, of unclear etiology, improved. Respiratory failure requiring intubation/mechanical ventilation, beginning on May 20, 2024. Recovered and on room air S/P successful extubation, May 27, 2024. Metabolic encephalopathy. Improved. Rule out viral SLIP MAKER infection. Cerebral spinal fluid cultures and cytology negative Acute sepsis, source not clear. Acute syncopal episode, versus seizure. Remains on Keppra History of CAD with previous PCI/stent. Hyperlipidemia. Benign essential hypertension. History of marijuana use. Plan: The patient was seen and evaluated Currently stable and on room air He did fall out of bed yesterday CT scan of the head showed no acute process business analytics director at the bedside This patient was seen independently by the pulmonary nurse practitioner addressing pulmonary issues I have personally seen and examined the patient, performed the documentation and the assessment and plan as written. Number of minutes spent on the visit: 23. Dictation was produced using [employer] dictation software. Please excuse any grammatical, word or spelling errors.
[2024-05-30] MEDS: LORazepam 1 MG TAB PO PRN (10:17)
--- NOTE | 2024-05-30 14:07 | P.PN ---
Subjective Progress Note Date: 05/30/24 I am following up with the patient and it seems yesterday patient had a fall. According to the nurse he was getting up and seems that he tripped on the IV line and hit his head. She stated immediately for the fall he did not have any confusion. Today the patient denies of any headache or any new deficits. According to the nurse the family was crying about a repeat EEG because of episode of confusion. Objective - Vital Signs Vital signs: Vital Signs Temp 98.4 F 05/30/24 13:24 Pulse 110 H 05/30/24 13:24 Resp 17 05/30/24 13:24 BP 107/69 05/30/24 13:24 Pulse Ox 96 05/30/24 13:24 FiO2 30 05/27/24 13:10 Intake & Output 05/29/24 05/30/24 05/30/24 18:59 06:59 18:59 Intake Total 590 Output Total 850 Balance -850 590 Weight 68 kg Intake: Oral 590 Output: Urine 850 Other: Voiding Method Bedside Commode Bedside Commode Urinal Incontinent External Catheter # Voids 2 # Bowel Movements 1 ABP, PAP, CO, CI - Last Documented Arterial Blood Pressure 103/49 - Exam General: Lying in bed and is not in acute distress. Neuro: Is awake, oriented to self, place and correctly stated the current year. Is following simple commands. No aphasia. No facial weakness. No dysathria. Motor: Is limited but lifted upper above gravity and appears symmetrically and lifted lowers above gravity. - Labs CBC & Chem 7: 05/29/24 07:12 05/28/24 04:20 Labs: Microbiology - Last 24 Hours (Table) 05/27/24 10:29 CSF Gram Stain - Preliminary Cerebral Spinal Fluid CSF Culture - Preliminary Assessment and Plan Assessment: * Altered mental status, unclear cause. Probable toxic metabolic causes. CSF study is negative and nulceated cells is 0. Patient had 2 routine EEGs which were negative for any seizure or discharges. Also had 3 CT of the head which is unremarkable for any acute process--clinically better. * Had recent mechanical (got up and tripped on IV line) fall on 05/29/2024 and likely he had delirium * New onset seizure versus convulsive syncope. Unclear cause. * Thrombocytopenia * Lactic acidosis * Vitamin B12 deficiency * Folate deficiency * Non-STEMI * CAD * History of liver disease * Chronic low back pain * Hypertension * Hyperlipidemia * Depression Plan: * Most recent CT of the head post fall on 05/29/2024 shows no acute bleed or mass effect. Focal swelling/hematoma of the left frontal. The calvarium is intact. * Repeat EEG performed 05/21/2024 was again abnormal due to generalized slowing of moderate to severe degree. No changes compared to the EEG from yesterday. * Initial EEG on 05/20/2024 was abnormal due to background slowing of moderate to severe degree. This suggestive of generalized cerebral dysfunction, as can be seen with toxic metabolic encephalopathy related to diffuse structural brain abnormality. Clinical correlation is recommended. No epileptiform activity was seen. * Family was inquiring about a repeat EEG because of his recent confusion theref ore we will get a repeat EEG but unlikely there is any seizure or discharges. * Dr. Olvera placed him on Empirical Keppra 1000 mg IV twice daily. * Ammonia level < 9, B12 175, folate 3.50, blood cultures so far negative. Patient has been started on B12 replacement and folate replacement. * Vitamin B 6: <2, so started on 50mg daily and within 4 weeks recommend repeat level. * 2D echo revealed normal LV function with EF 60 to 65%. No obvious regional wall motion abnormalities. Normal left atrial size. No valvular abnormalities. * Carotid Doppler revealed less than 50% stenosis of bilateral carotid bifurcations. Antegrade flow in both vertebral arteries. * Cardiology on board for elevated cardiac enzymes. Patient is off Plavix at this time. * Patient had a low-grade temperature. Infectious disease consulted. Patient started on acyclovir and also on Zosyn. CSF study on 05/27/2024: clear, colorless, 0 nucleated cells, 60 glucose and 77 protein. * Lyme is negative. HSI 1 IgG ab is positive while II is negative. RPR is non reactive. * Other medical management as per IM and other specialties on board. The plan is discussed with his nurse. Dr. Olvera will resume neurology service tomorrow A.M. Time with Patient: Less than 30
--- NOTE | 2024-05-30 15:53 | P.PN ---
Subjective Progress Note Date: 05/30/24 Principal diagnosis: Reason for follow-up is fever question of encephalitis Patient is a 64-year-old male with a past medical history significant for coronary disease reflux hypertension CT, patient was brought into the hospital with an episode of nausea vomiting agitation and seizure-like activity he did have low-grade fever got elevated to protect his airways. On today's evaluation that is 05/30/2024,the patient remains to be afebrile, patient is on room air not requiring supplemental oxygen and denies any shortness of breath no chest pain or cough.Patient denies having any nausea or vomiting, no abdominal pain and no diarrhea has been reported, no further fall mention feeling better. Patient white count is 5.4 creatinine 0.[address] of the brain no acute bleed or mass effect focal swelling hematoma of the left frontal bones calvarium is intact Objective - Vital Signs Vital signs: Vital Signs Temp 98.4 F 05/30/24 13:24 Pulse 110 H 05/30/24 13:24 Resp 17 05/30/24 13:24 BP 107/69 05/30/24 13:24 Pulse Ox 96 05/30/24 13:24 FiO2 30 05/27/24 13:10 Intake & Output 05/29/24 05/30/24 05/30/24 18:59 06:59 18:59 Intake Total 590 Output Total 850 Balance -850 590 Weight 68 kg Intake: Oral 590 Output: Urine 850 Other: Voiding Method Bedside Commode Bedside Commode Urinal Incontinent External Catheter # Voids 2 # Bowel Movements 1 ABP, PAP, CO, CI - Last Documented Arterial Blood Pressure 103/49 - Exam GENERAL DESCRIPTION: An elderly male up in the chair in no distress RESPIRATORY SYSTEM: Unlabored breathing , decreased breath sounds at bases HEART: S1 S2 regular rate and rhythm , ABDOMEN: Soft , no tenderness EXTREMITIES: No edema feet - Labs CBC & Chem 7: 05/29/24 07:12 05/28/24 04:20 Labs: Microbiology - Last 24 Hours (Table) 05/27/24 10:29 CSF Gram Stain - Preliminary Cerebral Spinal Fluid CSF Culture - Preliminary Assessment and Plan (1) Acute encephalopathy Current Visit: Yes Status: Acute Code(s): G93.40 - ENCEPHALOPATHY, UNSPECIFIED SNOMED Code(s): 59292700 (2) Fever Current Visit: Yes Status: Acute Code(s): R50.9 - FEVER, UNSPECIFIED SNOMED Code(s): 887500832 Plan: 1patient presented to hospital with rigors and chills mental status changes and apparently the patient did have significant vomiting the day before presentation to the hospital and did have extensive workup no significant finding except diverticulitis reported by the radiologist on the CT however keeping in mind significant mental status changes agitation combativeness and fever will point was possible encephalitis with a question of possible herpes versus West Nile in the differential, and will also cover for possible component of aspiration pneumonitis/diverticulitis 2-LP has been completed did have a protein of 77 glucose normal WBC normal HSV DNA by PCR negative, West Nile serology and CSF is pending. 3patient did have a fall with evidence of left frontal hematoma but did not mention mention any intracranial abnormality patient is currently being monitored closely off antiviral as well as antibiotic Family the bedside questions answered Dictation was produced using [employer] dictation software. please excuse any grammatical, word or spelling errors. Time with Patient: Less than 30
--- NOTE | 2024-05-30 22:33 | P.PN ---
Subjective Progress Note Date: 05/30/24 HISTORY OF PRESENT ILLNESS: 64-year-old one of my office patient for many years with active medical history of CAD post PCI and stent placement of the RCA back in October 2022, history of chronic clinical hepatitis with early cirrhosis, history of chronic lower back pain with spinal stenosis, hypertension, hyperlipidemia, hyperglycemia, chronic lower back pain, recurrent pancreatitis, chronic history of neuropathy of the lower extremity, chronic kidney disease stage III, with history of BPH mild anxiety and edema who brought to the emergency department by EMS that patient apparently through the day developed to have severe nausea vomiting with recurrent abdominal pain according family heard stump with falling found him shaking and having seizure-like activity on the floor EMS were called to the scene when arrived found to have confused and combative they gave him 10 mg of Versed which made him very calm had no further seizure activity at the time. At the time of his arrival to the emergency department patient was very confused combative hypoxic and having worsening symptoms and that being in intubated and kept on mechanical ventilation and on sedation. At that point in the ER ended up doing CT of the brain and C-spine did not show any acute intracranial hemorr brando or abnormality and no midline shift, C-spine failed to show any fracture or subluxation. CT of the abdomen and pelvis did not show any obvious saddle pulmonary embolism no acute intracranial abdominal process was seen slight some abdominal wall thickening in the sigmoid colon most likely from chronic diverticulitis and incidental 10 mm of nonobstructive calculus within the mid dilated right renal pelvis. Patient was sedated on mechanical ventilation In the emergency department was giving cefepime UA was positive at the time drug screen was positive for opiates benzodiazepine and marijuana which patient taking medication and admitted taking marijuana every so often. [facility] and given duration patient be admitted to the ICU. 05/21/2024: Patient still intubated on mechanical ventilation in the ICU he is extremely agitated when trying to back off sedation, still with all the collected information from family seems like he had seizure EEG did not show any seizure activity at this point. With his low-grade temperature and not finding any source of infection or reason for his symptoms neurology is leaning toward having to do lumbar puncture for collection of spinal fluid for further analysis problem the patient had last dose of antiplatelet agent within the last 4 days which will be a close this time to be able to do LP will be around Friday next week. Meanwhile further recommendation by infectious disease for other infection specially infectious process like Lyme or other pathogen might be the source stomach not been found out. Echocardiogram was performed showed good ejection fraction with no valvular heart disease. Antibiotic was changed by infectious disease to Zosyn from cefepime. Laboratory value with white blood cell is down to 8000 no anemia urine test still showing some RBC more than WBC with large amount of blood and trace bacteria. Chest x-ray shows no acute cardiopulmonary process. 05/22/2024: Patient remain on mechanical ventilation, herpes antibody type I positive patient was started on acyclovir, antibiotic was switched to Zosyn as well. Repeat chest x-ray today still negative with no sign of aspiration or infection. Data been collected on Lyme and [place] Nile. Neurology still believe having to do LP will be valuable data is not marciano be done till Friday based on the last day he had antiplatelet agent which will make it safer by Friday only. Further management and finding including no fever at this point blood pressure and vitals are stable the patient is still not weanable of mechanical ventilation he is agitated when back off on sedation. 05/23/2024: Still sedated on mechanical ventilation, labs from this morning with white blood cell 6.4 normal kidney function, blood sugar running in the low 100s. Chest x-ray has been showing slight haziness in the right lower lobe. Apparently reviewed from infectious disease believe this is still can be an infectious process combination of either diverticulitis or aspiration pneumonia or a combination of both also the necessity to do lumbar puncture in last day of Plavix was 05/20/2024 waiting at least till 05/25/2024 which will be on Friday. 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 Still planning to do LP but not till Friday. Patient backing off on sedation he become quite agitated and not comfortable start thrashing everything around him making it not easy so far he still on mechanical ventilation. 05/24/2024: Patient remains on mechanical ventilation, hemodynamically still stable with pulse oximetry and FiO2 of 35 percentile still at 98%, laboratory value does not show any major abnormality, chest x-ray still shows mostly clear lung with slight haziness on the right basal mostly similar to obesity with slight aspiration. Currently no change on blood panel done for patient still on Zosyn and acyclovir waiting for aspiration pneumonia and diverticulitis his testing for [place] Nile still pending, Lyme test is not back yet he has herpes simplex 1 serology positive and treated with acyclovir. Patient be going for lumbar puncture tomorrow the earliest to allow enough time while on antiplatelet agent not to have any major impact with the test itself. At this stage and again patient should have probably feeding tube should start enteral feeding not wait any longer continue management for seizure as well as recommended by neurology. 05/25/2024: Patient still on mechanical ventilation still sedated not been able to wean him off vent currently, lumbar puncture is planned today the earliest. Procalcitonin apparently has been low at 0.12 and pulmonary are think about quitting Zosyn he will be kept on acyclovir as of now. Lyme antibody came back negative. He is FiO2 is with use down to 30% but yesterday successful, lab from today showing white blood cell of 5.6 hemoglobin 12.1 hematocrit 36.6 still have mild thrombocytopenia with 89 platelet count, blood sugar still in the low 100. Chest x-ray repeat does not show any sign of infiltrate or haziness the fact bronchial shadow looks even negative for bronchitis. Troponin was mildly elevated but patient does not have any sign of reduced ejection fraction to indicate acute SC, apparently cardiology decided to discontinue Plavix permanently and to start him on aspirin following his lumbar puncture still holding off on any anticoagulation specially heparin and Lovenox based on his HIT. 05/26/2024: Still resting comfortably on mechanical ventilation still sedated, review his vitals and laboratory remain stable with temperature is marginal at 99.2 blood pressure 150/88 with FiO2 30 percentile pulse ox running around 96%. Lab value showing white blood cell of 5.1 with normal hemoglobin platelet count up to 91,000 with improving thrombocytopenia, ABG still showing PaO2 of 127 creatinine 0.52 GFR above 90. His urine output remained good. He still on propofol of 50 mcg and sedated diminished backing off sedation he is thrashing and extremely anxious and agitated. EEG apparently was done did not show any seizure activity lumbar puncture apparently scheduled for Friday instead of Friday. Which will be done tomorrow meanwhile his continue to be cancer his altered mental status related to toxic metabolic and possible encephalitis remain critically on mechanical ventilation current condition. 05/27/2024: He is remain on the ventilator still on sedation, platelet count today are up to 100,000 will be safe for anesthesia to do lumbar puncture for collection of spinal fluid for analysis. Otherwise with pulmonary probably still working for some weaning parameter patient apparently tolerate the holiday vent for about 15 minutes and then started having more problem. Chest x-ray today shows slight increased congestion mostly vascular and mostly on the right side which patient remain on treatment management for it. Despite trying to wean him off the vent and doing lumbar puncture is no other ID at this point there is no new pathogen diagnosed with culture and into the early next week patient probably required to go into tracheostomy and PEG tube in the meanwhile he still been fed via NG tube. 05/28/2024: Patient was extubated successfully yesterday he is currently on room air and ended up having lumbar puncture done which showed protein slightly elevated 77 with glucose 60 with 2 RBC only, herpes simplex was negative repeat chest x-ray showing possibility of bronchitis versus fluid overload. Platelet count down to 92,000 today with his current thrombocytopenia his kidney function still good. Second brain CAT scan earlier but no change consistent with any neuro he had convulsion episodes still on Keppra prophylaxis and has been doing better. Cognitive voice knowing patient that well he is awake alert he knows why was today knows a place still slightly confused about time which is expected with the days he was intubated for with his sedation. Mobility and activity [place] patient still debilitated will probably require gradual help with physical therapy and eventually might benefit from going to inpatient rehab. 05/29/2024: He is remain out of the ICU, slightly with confused with attempt to get himself out of bed to use the bathroom patient fell and slammed his left forehead CAT scan of the brain was performed shortly after shows no acute bleed focal swelling and hematoma of the left forehead only. He is lumbar puncture final is clear no infection is found including herpes simplex, infectious disease [place] that he is off antibiotics including acyclovir. Patient still on antiseizure medication. 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 05/30/2024: Patient has done slightly better last 24 hours sadly had a sitter on the bedside because of the events from yesterday but patient is fully awake alert interactive was alert oriented x 3 and is feeling slightly better today his mobility significantly decreased require definitely help his balance and gait is off with time. From review all by neurology and infectious disease there is no new finding his platelet count up to 1 27,000 not having any more trouble with thrombocytopenia. Decide pushing patient for improvement from [place] he still cannot be on antiseizure medication and hopefully looking into short-term rehab for 2 weeks sometime early this week. Sitter was discontinued today patient to be watched. More carefully. REVIEW OF SYSTEMS: CONSTITUTIONAL: Sedated on mechanical ventilation. EYES: No icterus sclerae, no conjunctivitis. EARS, NOSE, MOUTH, THROAT, and FACE: No sore throat, lymphadenopathy, carotid br uits or deformity. ET tube. RESPIRATORY: No SOB cough or wheezes. CARDIOVASCULAR: Intubated. No obvious complaint of chest pain or angina at times despite elevated troponin. GASTROINTESTINAL: Soft positive bowel sounds slight discomfort in the left lower quadrant area and right upper quadrant area as well no rebound or rigidity. GENITOURINARY: Negative for Hematuria or UTI, no kidney stones. INTEGUMENT/BREAST: Negative for any muscular injury with mild osteoarthritis.. HEMATOLOGIC/LYMPHATIC: Negative for bleed or purpura. MUSCULOSKELTAL: Negative for Myalgia or arthralgia. NEURLOGICAL: Sedated anything in ventilation. BEHAVIORAL/PSYCH: Negative. ENDOCRINE: Negative. PHYSICAL EXAMINATION: General Appearance: Sedated on mechanical ventilation with a ET tube in place. Neck HEENT: Supple, no lymphadenopathy, no thyroid enlargement, no carotid bruits. Lungs: Decreased breath sound bilaterally fine rhonchi mild expiratory wheezes. Chest Wall: Decreased expansion with deep inspiration no tenderness and no deformity was found on exam, no costochondral pain or discomfort. Heart: Regular rate and rhythm, S1, S2 normal, no murmur, rub or gallop. Back: Symmetric, no curvature, ROM normal, no CVA tenderness. Abdomen: Soft with slight distention and slight left lower quadrant and mid abdominal region discomfort with no rebound or rigidity. Extremities: Extremities normal, atraumatic, no cyanosis or edema. Pulses: 2+ and symmetric. Skin: Skin color, texture, tugor normal, no rashes or lesions. Neurologic: Sedated on mechanical ventilation. ASSESSMENT AND PLAN: _Hypoxic encephalopathy: Most likely when patient had his original episode had more hypoxia than expected longer than expected and probably have an impact on was going on with his outcome at this point. Patient might require longer-term vent management try to wean him off at some point. _Altered mental status: Has improved at this point but continue to have slight event in between most likely related to the trauma from being on the vent for 1 week which I believe patient will improved significantly. _Another fall with head trauma: Negative for bleed continue to watch patient neuro regularly. _Seizure like activity: Negative EEG still on Keppra will continue antiseizure medication after his discharge as well. Continue Keppra supported by neurology. _Respiratory failure: Much better continue without oxygen still on updraft treatment on as-needed basis. _Infectious process mostly sepsis: He is off antibiotics all cultures are negative including his lumbar puncture at this point despite herpes antibody is positive with herpes in the LP is negative his office likely beer. _Non-STEMI: Most likely type II SC secondary to acute injury no sign of real SC and well-preserved ejection fraction on echo. _Thrombocytopenia possibly due to sepsis rule and possible HIT: Platelet count is up to 127,000 no further concern about any bleed at this point. _History of atherosclerotic heart disease: Post angioplasty and stent placement, cardiology decided to take him off Plavix permanently and just put him back on aspirin after lumbar puncture today.. _Severe GERD: Remain on proton pump inhibitor. _Nutrition: Continue supplement beside his regular meals patient does not have any dysphagia. 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 _Chronic lower back pain post surgical intervention: Remain on pain meds and muscle relaxer at this point. _Hiatal hernia and gastroparesis: Remain on Protonix and off Reglan. _Hypertension: Remain on metoprolol titrate 25 mg twice a day his blood pressure still high will add smaller dose of ARB. _Hyperlipidemia: Remain on Lipitor 40 mg a day. _Chronic depression anxiety attacks has been on escitalopram 20 and alprazolam 0.5 mg twice a day. Discussion: Despite the current confusion all testing are negative at this point patient will increase activity with physical therapy and require more help consult social service for possible short-term rehab in the next few days. Objective - Vital Signs Vital signs: Vital Signs Temp 98.2 F 05/30/24 07:37 Pulse 89 05/30/24 07:37 Resp 16 05/30/24 07:37 BP 119/78 05/30/24 07:37 Pulse Ox 97 05/30/24 07:37 FiO2 30 05/27/24 13:10 Intake & Output 05/29/24 05/30/24 05/30/24 18:59 06:59 18:59 Intake Total 590 Output Total 850 Balance -850 590 Weight 68 kg Intake: Oral 590 Output: Urine 850 Other: Voiding Method Bedside Commode Bedside Commode Urinal Incontinent External Catheter # Voids 2 # Bowel Movements 1 ABP, PAP, CO, CI - Last Documented Arterial Blood Pressure 103/49 - Labs CBC & Chem 7: 05/29/24 07:12 05/28/24 04:20 Labs: Microbiology - Last 24 Hours (Table) 05/27/24 10:29 CSF Gram Stain - Preliminary Cerebral Spinal Fluid CSF Culture - Preliminary
[2024-05-31 06:27] LABS: HCT 35.6 % (39.0-53.0); HGB 11.8 gm/dL (13.0-17.5); MCH 32.7 pg (25.0-35.0); MCHC 33.3 g/dL (31.0-37.0); MCV 98.4 fL (80.0-100.0); Mean Platelet Volume 7.7; Platelet Count 117 k/uL (150-450); RBC 3.62 m/uL (4.30-5.90); RDW 13.6 % (11.5-15.5); WBC 3.2 k/uL (3.8-10.6)
[2024-05-31 06:41] LABS: ALT 65 U/L (4-49); AST 58 U/L (17-59); African American GFR (CKD) >90 (>60 ml/min/1.73 sqM); Albumin 2.9 g/dL (3.5-5.0); Alkaline Phosphatase 163 U/L (38-126); Anion Gap 5 mmol/L; Blood Urea Nitrogen 19 mg/dL (9-20); Calcium 8.5 mg/dL (8.4-10.2); Carbon Dioxide 24 mmol/L (22-30); Chloride 108 mmol/L (98-107); Globulin 2.9 g/dL; Glucose 97 mg/dL (74-99); Non-African American GFR(CKD) >90 (>60 ml/min/1.73 sqM); Potassium 3.2 mmol/L (3.5-5.1); Sodium 137 mmol/L (137-145); Total Bilirubin 1.5 mg/dL (0.2-1.3); Total Protein 5.8 g/dL (6.3-8.2)
[2024-05-31 06:42] LABS: Appearance,Urine Cloudy (Clear); Bacteria,Urine Few /hpf; Bilirubin,Urine Negative (Negative); Blood,Urine Large (Negative); Calcium Oxalate Crystals,Urine Few /hpf; Color,Urine Dark Brown; Glucose,Urine (UA) Negative (Negative); Ketones,Urine Negative (Negative); Leukocyte Esterase,Urine Negative (Negative); Mucus,Urine Rare /hpf; Nitrite,Urine Negative (Negative); Protein,Urine Trace (Negative); RBC,Urine >182 /hpf (0-5); Specific Gravity,Urine 1.022 (1.001-1.035); Squamous Epithelial Cell,Urine 1 /hpf (0-4); WBC,Urine 4 /hpf (0-5)
[2024-05-31 07:50] VITALS: RESP 16
[2024-05-31] MEDS: POTASSIUM CHLORIDE ER 20 MEQ TAB.ER PO SCH ×2 (08:17→13:36)
--- NOTE | 2024-05-31 08:25 | US ---
EXAMINATION TYPE: US renals and bladder DATE OF EXAM: 05/31/2024 COMPARISON: CLINICAL INDICATION: Male, 64 years old with history of Hematuria; Portable inpatient exam TECHNIQUE: Grayscale and color Doppler imaging of the bilateral kidneys and urinary bladder: FINDINGS: EXAM MEASUREMENTS: Right Kidney: 11.6 x 5.8 x 5.8 cm Left Kidney: 12.1 x 5.6 x 5.3 cm Right Kidney: No hydronephrosis or masses seen Left Kidney: lateral anechoic lesion with largest superior= 0.8 x 0.7 x 0.6 cm Findings too small to characterize but statistically most likely related to simple cysts. Bladder: anechoic Bilateral Jets not seen Renal cortex thickness and echogenicity maintained. IMPRESSION: No hydronephrosis or nephrolithiasis. [facility], , 05/31/2024 8:23 AM
[2024-05-31 12:58] VITALS: BP 118/68; PULSE 94; TEMP 99
--- NOTE | 2024-05-31 14:37 | P.DS ---
Providers Date of admission: 05/20/24 03:24 Attending physician: Filipe Godinez Consults: 05/20/24 03:19 Consult Physician Routine Consulting Provider: Hernan Olvera Consult Reason/Comments: Seizure Do you want consulting provider notified?: Yes, Notify in am Consult Physician Stat Consulting Provider: Joseph Lee Consult Reason/Comments: ICU Do you want consulting provider notified?: Yes, Notify in am 05/21/24 09:22 Consult Physician Routine Consulting Provider: Deven Montanez Consult Reason/Comments: altered mental status, fever Do you want consulting provider notified?: Yes 05/25/24 12:44 Consult Physician Stat Consulting Provider: Ronit Xiong Consult Reason/Comments: lumbar puncture Do you want consulting provider notified?: Already Contacted [facility] HISTORY OF PRESENT ILLNESS: 64-year-old one of my office patient for many years with active medical history of CAD post PCI and stent placement of the RCA back in October 2022, history of chronic clinical hepatitis with early cirrhosis, history of chronic lower back pain with spinal stenosis, hypertension, hyperlipidemia, hyperglycemia, chronic lower back pain, recurrent pancreatitis, chronic history of neuropathy of the lower extremity, chronic kidney disease stage III, with history of BPH mild anxiety and edema who brought to the emergency department by EMS that patient apparently through the day developed to have severe nausea vomiting with recurrent abdominal pain according family heard stump with falling found him shaking and having seizure-like activity on the floor EMS were called to the scene when arrived found to have confused and combative they gave him 10 mg of Versed which made him very calm had no further seizure activity at the time. At the time of his arrival to the emergency department patient was very confused combative hypoxic and having worsening symptoms and that being in intubated and kept on mechanical ventilation and on sedation. At that point in the ER ended up doing CT of the brain and C-spine did not show any acute intracranial hemorrhage or abnormality and no midline shift, C-spine failed to show any fracture or subluxation. CT of the abdomen and pelvis did not show any obvious saddle pulmonary embolism no acute intracranial abdominal process was seen slight some abdominal wall thickening in the sigmoid colon most likely from chronic diverticulitis and incidental 10 mm of nonobstructive calculus within the mid dilated right renal pelvis. Patient was sedated on mechanical ventilation In the emergency department was giving cefepime UA was positive at the time drug screen was positive for opiates benzodiazepine and marijuana which patient taking medication and admitted taking marijuana every so often. Risk Clinic and given duration patient be admitted to the ICU. 05/21/2024: Patient still intubated on mechanical ventilation in the ICU he is extremely agitated when trying to back off sedation, still with all the collected information from family seems like he had seizure EEG did not show any seizure activity at this point. With his low-grade temperature and not finding any source of infection or reason for his symptoms neurology is leaning toward having to do lumbar puncture for collection of spinal fluid for further analysis problem the patient had last dose of antiplatelet agent within the last 4 days which will be a close this time to be able to do LP will be around Friday next week. Meanwhile further recommendation by infectious disease for other infection specially infectious process like Lyme or other pathogen might be the source stomach not been found out. Echocardiogram was performed showed good ejection fraction with no valvular heart disease. Antibiotic was changed by infectious disease to Zosyn from cefepime. Laboratory value with white blood cell is down to 8000 no anemia urine test still showing some RBC more than WBC with large amount of blood and trace bacteria. Chest x-ray shows no acute cardiopulmonary process. 05/22/2024: Patient remain on mechanical ventilation, herpes antibody type I positive patient was started on acyclovir, antibiotic was switched to Zosyn as well. Repeat chest x-ray today still negative with no sign of aspiration or infection. Data been collected on Lyme and West Nile. Neurology still believe having to do LP will be valuable data is not marciano be done till Friday based on the last day he had antiplatelet agent which will make it safer by Friday only. Further management and finding including no fever at this point blood pressure and vitals are stable the patient is still not weanable of mechanical ventilation he is agitated when back off on sedation. 05/23/2024: Still sedated on mechanical ventilation, labs from this morning with white blood cell 6.4 normal kidney function, blood sugar running in the low 100s. Chest x-ray has been showing slight haziness in the right lower lobe. Apparently reviewed from infectious disease believe this is still can be an infectious process combination of either diverticulitis or aspiration pneumonia or a combination of both also the necessity to do lumbar puncture in last day of Plavix was 05/20/2024 waiting at least till 05/25/2024 which will be on Friday. 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 Still planning to do LP but not till Friday. Patient backing off on sedation he become quite agitated and not comfortable start thrashing everything around him making it not easy so far he still on mechanical ventilation. 05/24/2024: Patient remains on mechanical ventilation, hemodynamically still stable with pulse oximetry and FiO2 of 35 percentile still at 98%, laboratory value does not show any major abnormality, chest x-ray still shows mostly clear lung with slight haziness on the right basal mostly similar to obesity with slight aspiration. Currently no change on blood panel done for patient still on Zosyn and acyclovir waiting for aspiration pneumonia and diverticulitis his test ing for West Nile still pending, Lyme test is not back yet he has herpes simplex 1 serology positive and treated with acyclovir. Patient be going for lumbar puncture tomorrow the earliest to allow enough time while on antiplatelet agent not to have any major impact with the test itself. At this stage and again patient should have probably feeding tube should start enteral feeding not wait any longer continue management for seizure as well as recommended by neurology. 05/25/2024: Patient still on mechanical ventilation still sedated not been able to wean him off vent currently, lumbar puncture is planned today the earliest. Procalcitonin apparently has been low at 0.12 and pulmonary are think about quitting Zosyn he will be kept on acyclovir as of now. Lyme antibody came back negative. He is FiO2 is with use down to 30% but yesterday successful, lab from today showing white blood cell of 5.6 hemoglobin 12.1 hematocrit 36.6 still have mild thrombocytopenia with 89 platelet count, blood sugar still in the low 100. Chest x-ray repeat does not show any sign of infiltrate or haziness the fact bronchial shadow looks even negative for bronchitis. Troponin was mildly elevated but patient does not have any sign of reduced ejection fraction to indicate acute AR, apparently cardiology decided to discontinue Plavix permanently and to start him on aspirin following his lumbar puncture still holding off on any anticoagulation specially heparin and Lovenox based on his HIT. 05/26/2024: Still resting comfortably on mechanical ventilation still sedated, review his vitals and laboratory remain stable with temperature is marginal at 99.2 blood pressure 150/88 with FiO2 30 percentile pulse ox running around 96%. Lab value showing white blood cell of 5.1 with normal hemoglobin platelet count up to 91,000 with improving thrombocytopenia, ABG still showing PaO2 of 127 creatinine 0.52 GFR above 90. His urine output remained good. He still on propofol of 50 mcg and sedated diminished backing off sedation he is thrashing and extremely anxious and agitated. EEG apparently was done did not show any seizure activity lumbar puncture apparently scheduled for Friday instead of Friday. Which will be done tomorrow meanwhile his continue to be cancer his altered mental status related to toxic metabolic and possible encephalitis remain critically on mechanical ventilation current condition. 05/27/2024: He is remain on the ventilator still on sedation, platelet count today are up to 100,000 will be safe for anesthesia to do lumbar puncture for collection of spinal fluid for analysis. Otherwise with pulmonary probably still working for some weaning parameter patient apparently tolerate the holiday vent for about 15 minutes and then started having more problem. Chest x-ray today shows slight increased congestion mostly vascular and mostly on the right side which patient remain on treatment management for it. Despite trying to wean him off the vent and doing lumbar puncture is no other ID at this point there is no new pathogen diagnosed with culture and into the early next week patient probably required to go into tracheostomy and PEG tube in the meanwhile he still been fed via NG tube. 05/28/2024: Patient was extubated successfully yesterday he is currently on room air and ended up having lumbar puncture done which showed protein slightly elevated 77 with glucose 60 with 2 RBC only, herpes simplex was negative repeat chest x-ray showing possibility of bronchitis versus fluid overload. Platelet count down to 92,000 today with his current thrombocytopenia his kidney function still good. Second brain CAT scan earlier but no change consistent with any neuro he had convulsion episodes still on Keppra prophylaxis and has been doing better. Cognitive voice knowing patient that well he is awake alert he knows why was today knows a place still slightly confused about time which is expected with the days he was intubated for with his sedation. Mobility and activity [place] patient still debilitated will probably require gradual help with physical therapy and eventually might benefit from going to inpatient rehab. 05/29/2024: He is remain out of the ICU, slightly with confused with attempt to get himself out of bed to use the bathroom patient fell and slammed his left forehead CAT scan of the brain was performed shortly after shows no acute bleed focal swelling and hematoma of the left forehead only. He is lumbar puncture final is clear no infection is found including herpes simplex, infectious disease [place] that he is off antibiotics including acyclovir. Patient still on antiseizure medication. 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 05/30/2024: Patient has done slightly better last 24 hours sadly had a sitter on the bedside because of the events from yesterday but patient is fully awake alert interactive was alert oriented x 3 and is feeling slightly better today his mobility significantly decreased require definitely help his balance and gait is off with time. From review all by neurology and infectious disease there is no new finding his platelet count up to 1 27,000 not having any more trouble with thrombocytopenia. Decide pushing patient for improvement from [place] he still cannot be on antiseizure medication and hopefully looking into short-term rehab for 2 weeks sometime early this week. Sitter was discontinued today patient to be watched. More carefully. 05/31/2024: Is doing well still having trouble with balance and gait his laboratory value with hemoglobin 11.8 hematocrit 35.6 electrolyte panel with potassium still at 3.2 on replacement therapy, liver enzyme has been slightly better kidney function is completely back to normal his UA showed more hematuria and up going for renal ultrasound result compatible with no hydronephrosis or nephrolithiasis. He is still not doing well with mobility balance and gait but agreeable to go to [facility] for rehab. Has been working with physical occupational therapy and the plan probably to send him to subacute rehab today. REVIEW OF SYSTEMS: CONSTITUTIONAL: Sedated on mechanical ventilation. EYES: No icterus sclerae, no conjunctivitis. EARS, NOSE, MOUTH, THROAT, and FACE: No sore throat, lymphadenopathy, carotid bruits or deformity. ET tube. RESPIRATORY: No SOB cough or wheezes. CARDIOVASCULAR: Intubated. No obvious complaint of chest pain or angina at times despite elevated troponin. GASTROINTESTINAL: Soft positive bowel sounds slight discomfort in the left lower quadrant area and right upper quadrant area as well no rebound or rigidity. GENITOURINARY: Negative for Hematuria or UTI, no kidney stones. INTEGUMENT/BREAST: Negative for any muscular injury with mild osteoarthritis.. HEMATOLOGIC/LYMPHATIC: Negative for bleed or purpura. MUSCULOSKELTAL: Negative for Myalgia or arthralgia. NEURLOGICAL: Sedated anything in ventilation. BEHAVIORAL/PSYCH: Negative. ENDOCRINE: Negative. PHYSICAL EXAMINATION: General Appearance: Sedated on mechanical ventilation with a ET tube in place. Neck HEENT: Supple, no lymphadenopathy, no thyroid enlargement, no carotid bruits. Lungs: Decreased breath sound bilaterally fine rhonchi mild expiratory wheezes. Chest Wall: Decreased expansion with deep inspiration no tenderness and no deformity was found on exam, no costochondral pain or discomfort. Heart: Regular rate and rhythm, S1, S2 normal, no murmur, rub or gallop. Back: Symmetric, no curvature, ROM normal, no CVA tenderness. Abdomen: Soft with slight distention and slight left lower quadrant and mid abdominal region discomfort with no rebound or rigidity. Extremities: Extremities normal, atraumatic, no cyanosis or edema. Pulses: 2+ and symmetric. Skin: Skin color, texture, tugor normal, no rashes or lesions. Neurologic: Sedated on mechanical ventilation. ASSESSMENT AND PLAN: _Hypoxic encephalopathy: Most likely when patient had his original episode had more hypoxia than expected longer than expected and probably have an impact on was going on with his outcome at this point. Patient might require longer-term vent management try to wean him off at some point. _Altered mental status: Has improved at this point but continue to have slight event in between most likely related to the trauma from being on the vent for 1 week which I believe patient will improved significantly. _Another fall with head trauma: Negative for bleed continue to watch patient neuro regularly. _Seizure like activity: Negative EEG still on Keppra will continue antiseizure medication after his discharge as well. Continue Keppra supported by neurology. _Respiratory failure: Much better continue without oxygen still on updraft treatment on as-needed basis. _Infectious process mostly sepsis: He is off antibiotics all cultures are negative including his lumbar puncture at this point despite herpes antibody is positive with herpes in the LP is negative his office likely beer. _Non-STEMI: Most likely type II AR secondary to acute injury no sign of real AR and well-preserved ejection fraction on echo. _Thrombocytopenia possibly due to sepsis rule and possible HIT: Platelet count is up to 127,000 no further concern about any bleed at this point. _History of atherosclerotic heart disease: Post angioplasty and stent placement, cardiology decided to take him off Plavix permanently and just put him back on aspirin after lumbar puncture today.. _Severe GERD: Remain on proton pump inhibitor. _Nutrition: Continue supplement beside his regular meals patient does not have any dysphagia. 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 _Chronic lower back pain post surgical intervention: Remain on pain meds and muscle relaxer at this point. _Hiatal hernia and gastroparesis: Remain on Protonix and off Reglan. _Hypertension: Remain on metoprolol titrate 25 mg twice a day his blood pressure still high will add smaller dose of ARB. _Hyperlipidemia: Remain on Lipitor 40 mg a day. _Chronic depression anxiety attacks has been on escitalopram 20 and alprazolam 0.5 mg twice a day. Discussion: Doing well family are concerned about slightly bit pain in the knee with slight swelling x-ray will be done if clear patient be transferred to subacute rehab at [facility]. Hospital course: He was hospitalized at [facility] in May 20, 2024 apparently brought to the emergency department by EMS that patient developed to have severe nausea vomiting with recurrent abdominal pain according to family heard stump with falling found him having tonic-clonic like seizure activity EMS was called came to the scene found patient to be confused combative they gave him 10 mg of Versed which made him very calm had no further seizure activity at the time at the time of arrival to the emergency department patient become combative and hypoxic with more confusion and altered mental status become with much worsening symptoms the patient ended up being coded with respiratory failure and have been intubated and kept on mechanical ventilation sedated and transferred to the ICU. CT of the brain and cervical spine did not show any intracranial hemorrhage or bleed cervical spine did not show any abnormality with fracture or dislocation CT of the abdomen and pelvis did not show any obvious embolism no acute intra- abdominal process was found thickness of the sigmoid and the colon area consistent with a chronic diverticulitis as an incidental finding. Also a 10 mm nonobstructive calculus found in the mid right renal pelvis patient was sedated kept on mechanical ventilation sent to the intensive care unit was seen at the point by pulmonary/critical care his troponin bumped up slight bit patient was seen cardiology also seen infectious disease and neurology for recurrent event. Whole workup minimally change in troponin patient did not have any sign and symptom of non-ST AR his echocardiogram showed well-preserved ejection fraction with normal valvular heart. Testing including her cardiac antibody came back positive with herpes simplex 1 patient was started on treatment at that point for diverticulitis along with herpes simplex 1 acyclovir and Zosyn were started and kept on for period of time. Patient continued to be sedated not been able to extubate him that easy for days and still no source of infection was found despite all the trial was done including checking him for Lyme disease family requested to check patient for [place] which will require lumbar puncture the patient by calculation had his Plavix early could not put him back to have lumbar puncture till his Plavix has been out of his body for over 5 days but suddenly developed to have HIT which made this process loaded more complicated could not do lumbar puncture all along till almost the or 29 May when finally his platelet count went back to 100,000 and anesthesia were able to do lumbar puncture by then patient was extubated successfully his lumbar puncture with culture came back negative for viral infection so his acyclovir was stopped completely and by then he was already stopped and using Zosyn because procalcitonin was negative. Patient remains on antiseizure medication with Vimpat all along and continue to see neurology and infectious disease no further finding of any infection was found. After extubation patient was weaned off oxygen very fast but continued to be slightly bit confused with occasional combative did not require any further help for any behavioral problem. The patient started recovering nicely but continue having trouble with his balance and gait is agreeable to be transferred probably to subacute rehab for period of time till his balance gait improve enough to be able to go home with no help. The day of his transfer family found slight with swelling in the knee and cystoscopy and x-ray and did an ultrasound of the renal today because of mild hematuria in his urine they are both negative patient be transferred to subacute rehab at [facility]. Time spent on patient discharge was over 35 minutes. Patient Condition at Discharge: Serious Plan - Discharge Summary Discharge Rx Participant: Yes New Discharge Prescriptions: New Aspirin 81 mg PO DAILY tab Folic Acid 1 mg PO DAILY #60 tab Acetaminophen Tab [Tylenol] 650 mg PO Q6HR PRN tab PRN Reason: Fever And/ Or Pain levETIRAcetam [Keppra] 500 mg PO Q12HR #60 tab Pantoprazole Sodium [Protonix] 40 mg PO AC-BRKFST #30 tab Pyridoxine [Vitamin B-6] 50 mg PO DAILY #30 tab Continue Atorvastatin [Lipitor] 40 mg PO DAILY Escitalopram [Lexapro] 20 mg PO DAILY Baclofen [Lioresal] 10 mg PO TID HYDROcodone/APAP 5-325MG [[place] 5-325] 1 tab PO Q12H PRN PRN Reason: Pain Metoprolol Tartrate [Lopressor] 25 mg PO BID ALPRAZolam [Xanax] 0.5 mg PO BID #30 tab Discontinued Clopidogrel [Plavix] 75 mg PO DAILY Discharge Medication List Baclofen [Lioresal] 10 mg PO TID 11/12/22 [History] Escitalopram [Lexapro] 20 mg PO DAILY 11/12/22 [History] Atorvastatin [Lipitor] 40 mg PO DAILY 04/03/23 [History] HYDROcodone/APAP 5-325MG [[place] 5-325] 1 tab PO Q12H PRN 05/07/23 [History] Metoprolol Tartrate [Lopressor] 25 mg PO BID 05/20/24 [History] ALPRAZolam [Xanax] 0.5 mg PO BID #30 tab 05/31/24 [Rx] Acetaminophen Tab [Tylenol] 650 mg PO Q6HR PRN tab 05/31/24 [Rx] Aspirin 81 mg PO DAILY tab 05/31/24 [Rx] Folic Acid 1 mg PO DAILY #60 tab 05/31/24 [Rx] Pantoprazole Sodium [Protonix] 40 mg PO AC-BRKFST #30 tab 05/31/24 [Rx] Pyridoxine [Vitamin B-6] 50 mg PO DAILY #30 tab 05/31/24 [Rx] levETIRAcetam [Keppra] 500 mg PO Q12HR #60 tab 05/31/24 [Rx] Follow up Appointment(s)/Referral(s): Filipe Godinez MD [Primary Care Provider] - 1-2 days Discharge Disposition: TRANSFER TO SNF/F
--- NOTE | 2024-06-01 02:56 | EEG ---
ELECTROENCEPHALOGRAM REPORT PREAMBLE: This is a 64-year-old male who has episodes of confusion. The patient had a fall, therefore this EEG is performed to evaluate for any seizures. CURRENT MEDICATIONS: 1. Keppra. 2. Ativan. 3. Magnesium. 4. Protonix. 5. Vitamin B6. EEG FINDINGS: This is a 21-channel digital EEG recorded with video component, utilizing 10/20 international system with referential and bipolar montages. Background consists of well developed, well regulated moderate voltage activity in 9 hertz alpha. Background is posterior dominant and reactive to eye opening and closing. Photic driving response was not seen. Drowsiness was seen with appearance of some bilaterally symmetric theta frequency rhythm. Deeper stages of sleep were not seen. Intermittent left temporal dysrhythmic delta or theta activity was seen. No focal or generalized epileptiform activity was seen. EKG channel showed no obvious arrhythmia. IMPRESSION: Overall study was somewhat technically limited because of frequent eye blinking and myogenic/movement artifacts. However there was intermittent left temporal dysrhythmic slowing in delta and theta range. This may suggest underlying focal cortical neuronal dysfunction. No epileptiform activity was seen. MMODL / IJN: [id number] / TIFFANY
== END 2024-05-31 14:35 | DRG 870 ==
LOC: EC 00:35 → 2SICU 03:24 → 5NMEDONC 05-28 17:52
PROVIDERS: ADMIT Internal Medicine Geriatric Medicine; ATTEND Internal Medicine Geriatric Medicine
PROC: 5A1955Z Respiratory Ventilation, Greater than 96 Consecutive Hours (ICD-10-PCS; principal; 2024-05-20)
PROC: 0BH17EZ Insertion of Endotracheal Airway into Trachea, Via Natural or Artificial Opening (ICD-10-PCS; 2024-05-20)
PROC: 4A00X4Z Measurement of Central Nervous Electrical Activity, External Approach (ICD-10-PCS; 2024-05-21)
PROC: 0DH67UZ Insertion of Feeding Device into Stomach, Via Natural or Artificial Opening (ICD-10-PCS; 2024-05-22)
PROC: 3E0G76Z Introduction of Nutritional Substance into Upper GI, Via Natural or Artificial Opening (ICD-10-PCS; 2024-05-22)
PROC: 009U3ZX Drainage of Spinal Canal, Percutaneous Approach, Diagnostic (ICD-10-PCS; 2024-05-27)
PROC: B01B1ZZ Fluoroscopy of Spinal Cord using Low Osmolar Contrast (ICD-10-PCS; 2024-05-27)
DX: A41.9 Sepsis, unspecified organism (principal); G93.41 Metabolic encephalopathy; I21.A1 Myocardial infarction type 2; J96.90 Respiratory failure, unspecified, unspecified whether with hypoxia or hypercapnia; J96.01 Acute respiratory failure with hypoxia; R65.21 Severe sepsis with septic shock; J69.0 Pneumonitis due to inhalation of food and vomit; R40.20 Unspecified coma; E87.20 Acidosis, unspecified; K57.32 Diverticulitis of large intestine without perforation or abscess without bleeding; G93.1 Anoxic brain damage, not elsewhere classified; K86.1 Other chronic pancreatitis; R56.9 Unspecified convulsions; I12.9 Hypertensive chronic kidney disease with stage 1 through stage 4 chronic kidney disease, or unspecified chronic kidney disease; K21.9 Gastro-esophageal reflux disease without esophagitis; K31.84 Gastroparesis; K74.60 Unspecified cirrhosis of liver; N18.30 Chronic kidney disease, stage 3 unspecified; N20.0 Calculus of kidney; B00.9 Herpesviral infection, unspecified; D69.6 Thrombocytopenia, unspecified; E55.9 Vitamin D deficiency, unspecified; S09.90XA Unspecified injury of head, initial encounter; M16.0 Bilateral primary osteoarthritis of hip; K75.81 Nonalcoholic steatohepatitis (NASH); T68.XXXA Hypothermia, initial encounter; E53.8 Deficiency of other specified B group vitamins; E78.5 Hyperlipidemia, unspecified; F32.A Depression, unspecified; F41.1 Generalized anxiety disorder; G89.29 Other chronic pain; I25.10 Atherosclerotic heart disease of native coronary artery without angina pectoris; N40.0 Benign prostatic hyperplasia without lower urinary tract symptoms; I25.2 Old myocardial infarction; K44.9 Diaphragmatic hernia without obstruction or gangrene; W06.XXXA Fall from bed, initial encounter; Z79.02 Long term (current) use of antithrombotics/antiplatelets; Z79.82 Long term (current) use of aspirin; Z79.899 Other long term (current) drug therapy; Z86.74 Personal history of sudden cardiac arrest; Z95.5 Presence of coronary angioplasty implant and graft
CPT/HCPCS: 31500; 36415; 36600; 62270; 70450; 71045; 71260; 72125; 72170; 74177; 76770; 80048; 80053; 80306; 80320; 81001; 82140; 82550; 82552; 82607; 82746; 82805; 82945; 83605; 83735; 84132; 84145; 84157; 84207; 84484; 85025; 85027; 85610; 85730; 86022; 86618; 86695; 86696; 86780; 86850; 86900; 86901; 87040; 87070; 87205; 87529; 88108; 89050; 93005; 93306; 93880; 94002; 94003; 95816; 95822; 96361; 96365; 96366; 96367; 96368; 96375; 99291; 99292

== ENCOUNTER 2024-06-08 18:08 | Inpatient (IN) | payer MEDICARE ==
--- NOTE | 2024-06-08 18:30 | ED ---
General Adult HPI - General Source: patient, EMS, RN notes reviewed, old records reviewed Mode of arrival: EMS Limitations: no limitations <Juan Carlos Schmidt - Last Filed: 06/08/24 21:49> <Juan Carlos Hopkins - Last Filed: 06/15/24 20:33> - General Chief complaint: Nausea/Vomiting/Diarrhea Stated complaint: N/V Time Seen by Provider: 06/08/24 18:13 - History of Present Illness Initial comments: This is a 64-year-old male who presents to the emergency department from the shelter. Patient comes in for nausea restlessness and high blood pressure. Patient himself says he has no pain he states he is just nauseous since this morning. Patient denies any fever or chills. Patient has cough. Patient has back pain. Patient has abdominal pain. Patient denies any recent fall. Patient however seems a little bit confused as to where he lives so not sure how accurate the history is (Juan Carlos Schmidt) - Related Data Home Medications Medication Instructions Recorded Confirmed Baclofen [Lioresal] 10 mg PO TID@,,11/12/22 06/08/24 Escitalopram [Lexapro] 20 mg PO DAILY@0800 11/12/22 06/08/24 Atorvastatin [Lipitor] 40 mg PO DAILY@0800 04/03/23 06/08/24 HYDROcodone/APAP 5-325MG [[place] 1 tab PO Q12H PRN 05/07/23 06/08/24 5-325] ALPRAZolam [Xanax XR] 0.5 mg PO BID@0800,2100 06/08/24 06/08/24 Aspirin 81 mg PO DAILY@0800 06/08/24 06/08/24 Folic Acid 1 mg PO DAILY@0800 06/08/24 06/08/24 Magnesium Hydroxide [Milk of 7,200 mg PO DAILY PRN 06/08/24 06/08/24 Magnesia Concentrate] Na Phos,M-B/Na Phos,Di-Ba [Fleet 133 ml RECTAL DAILY PRN 06/08/24 06/08/24 Adult] Pyridoxine [Vitamin B-6] 50 mg PO DAILY@0800 06/08/24 06/08/24 bisacodyL [Dulcolax] 10 mg RECTAL DAILY PRN 06/08/24 06/08/24 Previous Rx's Medication Instructions Recorded Acetaminophen Tab [Tylenol] 650 mg PO Q6HR PRN tab 05/31/24 Cyanocobalamin [Vitamin B-12] 1,000 mcg PO DAILY 30 Days #60 tab 06/11/24 Metoprolol Tartrate [Lopressor] 50 mg PO BID@0800,1700 30 Days #60 06/11/24 tab levETIRAcetam [Keppra] 1,000 mg PO BID@0800,2100 30 Days 06/11/24 #60 tab Pantoprazole Sodium [Protonix] 40 mg PO DAILY@0600 30 Days #30 tab 06/12/24 Allergies Allergy/AdvReac Type Severity Reaction Status Date / Time No Known Allergies Allergy Verified 06/08/24 20:22 Review of Systems ROS Other: All systems not noted in ROS Statement are negative. <Juan Carlos Schmidt - Last Filed: 06/08/24 21:49> ROS Other: All systems not noted in ROS Statement are negative. <Juan Carlos Hopkins - Last Filed: 06/15/24 20:33> ROS Statement: Those systems with pertinent positive or pertinent negative responses have been documented in the HPI. Past Medical History Past Medical History: Coronary Artery Disease (CAD), GERD/Reflux, Hypertension, Myocardial Infarction ([place]) Additional Past Medical History / Comment(s): headaches, borderline anemic, "low iron", "low WBC's", past acid refux, Last Myocardial Infarction Date:: History of Any Multi-Drug Resistant Organisms: None Reported Past Surgical History: Heart Catheterization With Stent, Hernia Repair, Orthopedic Surgery Additional Past Surgical History / Comment(s): beau knee arthroscopy, beau knee surgery as teen, Past Anesthesia/Blood Transfusion Reactions: No Reported Reaction Date of Last Stent Placement:: 11/12/2022 Past Psychological History: Anxiety Smoking Status: Current every day smoker Past Alcohol Use History: None Reported Past Drug Use History: None Reported - Past Family History Father Family Medical History: Cancer Mother Family Medical History: Dementia <Juan Carlos Schmidt - Last Filed: 06/08/24 21:49> General Exam Limitations: no limitations <Juan Carlos Schmidt - Last Filed: 06/08/24 21:49> Limitations: altered mental status General appearance: alert, in no apparent distress Head exam: Present: atraumatic, normocephalic, normal inspection Eye exam: Present: normal appearance, PERRL, EOMI. Absent: scleral icterus, conjunctival injection, periorbital swelling ENT exam: Present: normal exam, mucous membranes moist Neck exam: Present: normal inspection. Absent: tenderness, meningismus, lymphadenopathy Respiratory exam: Present: normal lung sounds bilaterally. Absent: respiratory distress, wheezes, rales, rhonchi, stridor Cardiovascular Exam: Present: regular rate, normal rhythm, normal heart sounds. Absent: systolic murmur, diastolic murmur, rubs, gallop, clicks GI/Abdominal exam: Present: soft, normal bowel sounds. Absent: distended, tenderness, guarding, rebound, rigid Extremities exam: Present: normal inspection, full ROM, normal capillary refill. Absent: tenderness, pedal edema, joint swelling, calf tenderness Back exam: Present: normal inspection Neurological exam: Present: alert, oriented X3, CN II-XII intact Psychiatric exam: Present: normal affect, normal mood Skin exam: Present: warm, dry, intact, normal color. Absent: rash <Juan Carlos Hopkins - Last Filed: 06/15/24 20:33> - General Exam Comments Initial Comments: GENERAL: Patient is well-developed and well-nourished. Patient is nontoxic and well- hydrated and is in mild distress. ENT: Neck is soft and supple. No significant lymphadenopathy is noted. Oropharynx is clear. Moist mucous membranes. Neck has full range of motion without eliciting any pain. EYES: The sclera were anicteric and conjunctiva were pink and moist. Extraocular movements were intact and pupils were equal round and reactive to light. Eyelids were unremarkable. PULMONARY: Unlabored respirations. Good breath sounds bilaterally. No audible rales rhonchi or wheezing was noted. CARDIOVASCULAR: There is a regular rate and rhythm without any murmurs gallops or rubs. ABDOMEN: Soft and nontender with normal bowel sounds. SKIN: Skin is clear with no lesions or rashes and otherwise unremarkable. NEUROLOGIC: Patient is alert and oriented x 2 patient thought he was still living at home cranial nerves II through XII are grossly intact. Motor and sensory are also intact. Normal speech, volume and content. Symmetrical smile. MUSCULOSKELETAL: Normal extremities with adequate strength and full range of motion. LYMPHATICS: No significant lymphadenopathy is noted PSYCHIATRIC: Normal psychiatric evaluation. (Juan Carlos Schmidt) Course <Juan Carlos Hopkins - Last Filed: 06/15/24 20:33> Vital Signs 06/08/24 06/08/24 06/08/24 18:18 18:52 20:00 Temperature 98 F Pulse Rate 100 85 Respiratory 18 16 Rate Blood Pressure 172/117 188/120 153/98 O2 Sat by Pulse 100 97 Oximetry 06/08/24 06/09/24 06/09/24 20:41 00:17 02:08 Temperature 98.4 F Pulse Rate 99 111 H 113 H Respiratory 20 16 20 Rate Blood Pressure 152/84 151/102 152/105 O2 Sat by Pulse 97 97 Oximetry 06/09/24 06/09/24 06/09/24 05:38 08:36 09:00 Temperature Pulse Rate 114 H 89 90 Respiratory 16 20 18 Rate Blood Pressure 134/79 111/75 O2 Sat by Pulse 99 98 Oximetry 06/09/24 06/09/24 06/09/24 10:00 12:00 16:40 Temperature 98.2 F Pulse Rate 92 93 Respiratory 18 18 Rate Blood Pressure 125/80 95/57 O2 Sat by Pulse 97 97 Oximetry - Reevaluation(s) Reevaluation #1: Medical records reviewed (Juan Carlos Hopkins) Reevaluation #2: Patient symptoms are improved (Juan Carlos Hopkins) - Consultations Consultation #1: Spoke with Dr. Goldstein regarding findings he is agreeable to admit this patient (Juan Carlos Hopkins) Medical Decision Making - Lab Data Result diagrams: 06/08/24 18:30 06/08/24 18:30 <Juan Carlos Schmidt - Last Filed: 06/08/24 21:49> - Lab Data Result diagrams: 06/11/24 04:58 06/11/24 04:58 - EKG Data -: EKG Interpreted by Me - Radiology Data Radiology results: report reviewed (CT abdomen pelvis chest x-ray negative for acute disease interpreted by me), image reviewed <Juan Carlos Hopkins - Last Filed: 06/15/24 20:33> - Medical Decision Making EKG is interpreted by myself. EKG shows sinus tachycardia at 101 bpm AR intervals 168 QRS is 97 QT interval 374 QTc is 432. Patient's EKG shows no ST segment elevation or depression. Was pt. sent in by a medical professional or institution ([facility], [employer], urgent care, hospital, or shelter...) When possible be specific @ -Sent to us from the shelter Did you speak to anyone other than the patient for history (EMS, parent, family, police, friend...)? What history was obtained from this source @ -Family gives quite a bit history because the patient is altered Did you review nursing and triage notes (agree or disagree)? Why? @ -[I reviewed and agree with nursing and triage notes] Were old charts reviewed (outside hosp., previous admission, EMS record, old EKG, old radiological studies, urgent care reports/EKG's, shelter records)? Report findings @ -[No old charts were reviewed] Differential Diagnosis? @ -Differential Altered Mental Status: Hypoglycemia, DKA, hypercapnia, ETOH, overdose, CO poisoning, trauma, myxedema coma, HTN encephalopathy, infection, encephalitis, psychosis, intercranial hemorrhage, hepatic encephalopathy, meningitis, CVA, this is not meant to be an all-inclusive list EKG interpreted by me (3pts min.). @ -[As above] X-rays interpreted by me (1pt min.). @ -Chest x-ray shows no acute normality CT interpreted by me (1pt min.). @ -[None done] U/S interpreted by me (1pt. min.). @ -[None done] What testing was considered but not performed or refused? (CT, X-rays, U/S, labs)? Why? @ -[None] What meds were considered but not given or refused? Why? @ -[None] Did you discuss the management of the patient with other professionals (professionals i.e. [facility], [employer], lab, RT, psych nurse, social security benefits interviewer, quartz orientator, teacher, conservation officer, caser in)? Give summary @ -Dr. Hopkins will be taken care of this patient at 9 PM (Juan Carlos Schmidt) - Lab Data Lab Results 06/08/24 06/08/24 06/08/24 Range/Units 18:30 18:30 18:30 WBC 8.6 (3.8-10.6) k/uL RBC 4.13 L (4.30-5.90) m/uL Hgb 13.6 (13.0-17.5) gm/dL Hct 40.2 (39.0-53.0) % MCV 97.5 (80.0-100.0) fL MCH 33.0 (25.0-35.0) pg MCHC 33.8 (31.0-37.0) g/dL RDW 14.1 (11.5-15.5) % Plt Count 207 (150-450) k/uL MPV 8.1 Neutrophils % 86 % Lymphocytes % 7 % Monocytes % 6 % Eosinophils % 0 % Basophils % 0 % Neutrophils # 7.4 (1.3-7.7) k/uL Lymphocytes # 0.6 L (1.0-4.8) k/uL Monocytes # 0.5 (0-1.0) k/uL Eosinophils # 0.0 (0-0.7) k/uL Basophils # 0.0 (0-0.2) k/uL PT 12.6 H (10.0-12.5) sec INR 1.2 H (<1.2) APTT 24.8 (22.0-30.0) sec Sodium 134 L (137-145) mmol/L Potassium 3.6 (3.5-5.1) mmol/L Chloride 103 (98-107) mmol/L Carbon Dioxide 19 L (22-30) mmol/L Anion Gap 12 mmol/L BUN 17 (9-20) mg/dL Creatinine 0.53 L (0.66-1.25) mg/dL Est GFR (CKD-EPI)AfAm >90 (>60 ml/min/1.73 sqM) Est GFR (CKD-EPI)NonAf >90 (>60 ml/min/1.73 sqM) Glucose 139 H (74-99) mg/dL POC Glucose (mg/dL) (70-110) mg/dL POC Glu Career Advisor ID Calcium 8.9 (8.4-10.2) mg/dL Phosphorus (2.5-4.5) mg/dL Magnesium (1.6-2.3) mg/dL Total Bilirubin 2.4 H (0.2-1.3) mg/dL AST 41 (17-59) U/L ALT 53 H (4-49) U/L Alkaline Phosphatase 239 H (38-126) U/L Ammonia (<30) umol/L Troponin I (0.000-0.034) ng/mL Total Protein 7.0 (6.3-8.2) g/dL Albumin 3.5 (3.5-5.0) g/dL TSH (0.350-5.500) UIU/ML Urine Color Urine Appearance (Clear) Urine pH (5.0-8.0) Ur Specific [place] (1.001-1.035) Urine Protein (Negative) Urine Glucose (UA) (Negative) Urine Ketones (Negative) Urine Blood (Negative) Urine Nitrite (Negative) Urine Bilirubin (Negative) Urine Urobilinogen (<2.0) mg/dL Ur Leukocyte Esterase (Negative) Urine RBC (0-5) /hpf Urine WBC (0-5) /hpf Ur Squamous Epith Cells (0-4) /hpf Hyaline Casts (0-2) /lpf Urine Mucus (None) /hpf Urine Opiates Screen (NotDetected) Ur Oxycodone Screen (NotDetected) Urine Methadone Screen (NotDetected) Ur Barbiturates Screen (NotDetected) U Tricyclic Antidepress (NotDetected) Ur Phencyclidine Scrn (NotDetected) Ur Amphetamines Screen (NotDetected) U Methamphetamines Scrn (NotDetected) U Benzodiazepines Scrn (NotDetected) Urine Cocaine Screen (NotDetected) U Marijuana (THC) Screen (NotDetected) Influenza Type A (PCR) (Not Detectd) Influenza Type B (PCR) (Not Detectd) RSV (PCR) (Not Detectd) SARS-CoV-2 (PCR) (Not Detectd) 06/08/24 06/08/24 06/08/24 Range/Units 18:30 18:30 18:32 WBC (3.8-10.6) k/uL RBC (4.30-5.90) m/uL Hgb (13.0-17.5) gm/dL Hct (39.0-53.0) % MCV (80.0-100.0) fL MCH (25.0-35.0) pg MCHC (31.0-37.0) g/dL RDW (11.5-15.5) % Plt Count (150-450) k/uL MPV Neutrophils % % Lymphocytes % % Monocytes % % Eosinophils % % Basophils % % Neutrophils # (1.3-7.7) k/uL Lymphocytes # (1.0-4.8) k/uL Monocytes # (0-1.0) k/uL Eosinophils # (0-0.7) k/uL Basophils # (0-0.2) k/uL PT (10.0-12.5) sec INR (<1.2) APTT (22.0-30.0) sec Sodium (137-145) mmol/L Potassium (3.5-5.1) mmol/L Chloride (98-107) mmol/L Carbon Dioxide (22-30) mmol/L Anion Gap mmol/L BUN (9-20) mg/dL Creatinine (0.66-1.25) mg/dL Est GFR (CKD-EPI)AfAm (>60 ml/min/1.73 sqM) Est GFR (CKD-EPI)NonAf (>60 ml/min/1.73 sqM) Glucose (74-99) mg/dL POC Glucose (mg/dL) (70-110) mg/dL POC Glu Career Advisor ID Calcium (8.4-10.2) mg/dL Phosphorus (2.5-4.5) mg/dL Magnesium (1.6-2.3) mg/dL Total Bilirubin (0.2-1.3) mg/dL AST (17-59) U/L ALT (4-49) U/L Alkaline Phosphatase (38-126) U/L Ammonia <9 (<30) umol/L Troponin I <0.012 (0.000-0.034) ng/mL Total Protein (6.3-8.2) g/dL Albumin (3.5-5.0) g/dL TSH (0.350-5.500) UIU/ML Urine Color Urine Appearance (Clear) Urine pH (5.0-8.0) Ur Specific [place] (1.001-1.035) Urine Protein (Negative) Urine Glucose (UA) (Negative) Urine Ketones (Negative) Urine Blood (Negative) Urine Nitrite (Negative) Urine Bilirubin (Negative) Urine Urobilinogen (<2.0) mg/dL Ur Leukocyte Esterase (Negative) Urine RBC (0-5) /hpf Urine WBC (0-5) /hpf Ur Squamous Epith Cells (0-4) /hpf Hyaline Casts (0-2) /lpf Urine Mucus (None) /hpf Urine Opiates Screen (NotDetected) Ur Oxycodone Screen (NotDetected) Urine Methadone Screen (NotDetected) Ur Barbiturates Screen (NotDetected) U Tricyclic Antidepress (NotDetected) Ur Phencyclidine Scrn (NotDetected) Ur Amphetamines Screen (NotDetected) U Methamphetamines Scrn (NotDetected) U Benzodiazepines Scrn (NotDetected) Urine Cocaine Screen (NotDetected) U Marijuana (THC) Screen (NotDetected) Influenza Type A (PCR) Not Detected (Not Detectd) Influenza Type B (PCR) Not Detected (Not Detectd) RSV (PCR) Not Detected (Not Detectd) SARS-CoV-2 (PCR) Not Detected (Not Detectd) 06/08/24 06/08/24 06/08/24 Range/Units 20:17 20:17 22:25 WBC (3.8-10.6) k/uL RBC (4.30-5.90) m/uL Hgb (13.0-17.5) gm/dL Hct (39.0-53.0) % MCV (80.0-100.0) fL MCH (25.0-35.0) pg MCHC (31.0-37.0) g/dL RDW (11.5-15.5) % Plt Count (150-450) k/uL MPV Neutrophils % % Lymphocytes % % Monocytes % % Eosinophils % % Basophils % % Neutrophils # (1.3-7.7) k/uL Lymphocytes # (1.0-4.8) k/uL Monocytes # (0-1.0) k/uL Eosinophils # (0-0.7) k/uL Basophils # (0-0.2) k/uL PT (10.0-12.5) sec INR (<1.2) APTT (22.0-30.0) sec Sodium (137-145) mmol/L Potassium (3.5-5.1) mmol/L Chloride (98-107) mmol/L Carbon Dioxide (22-30) mmol/L Anion Gap mmol/L BUN (9-20) mg/dL Creatinine (0.66-1.25) mg/dL Est GFR (CKD-EPI)AfAm (>60 ml/min/1.73 sqM) Est GFR (CKD-EPI)NonAf (>60 ml/min/1.73 sqM) Glucose (74-99) mg/dL POC Glucose (mg/dL) 158 H (70-110) mg/dL POC Glu Career Advisor ID [place] Calcium (8.4-10.2) mg/dL Phosphorus (2.5-4.5) mg/dL Magnesium (1.6-2.3) mg/dL Total Bilirubin (0.2-1.3) mg/dL AST (17-59) U/L ALT (4-49) U/L Alkaline Phosphatase (38-126) U/L Ammonia (<30) umol/L Troponin I (0.000-0.034) ng/mL Total Protein (6.3-8.2) g/dL Albumin (3.5-5.0) g/dL TSH (0.350-5.500) UIU/ML Urine Color Yellow Urine Appearance Clear (Clear) Urine pH 6.5 (5.0-8.0) Ur Specific [place] 1.020 (1.001-1.035) Urine Protein Trace H (Negative) Urine Glucose (UA) Negative (Negative) Urine Ketones 2+ H (Negative) Urine Blood Moderate H (Negative) Urine Nitrite Negative (Negative) Urine Bilirubin Negative (Negative) Urine Urobilinogen 4.0 (<2.0) mg/dL Ur Leukocyte Esterase Negative (Negative) Urine RBC 79 H (0-5) /hpf Urine WBC 3 (0-5) /hpf Ur Squamous Epith Cells <1 (0-4) /hpf Hyaline Casts 3 H (0-2) /lpf Urine Mucus Few H (None) /hpf Urine Opiates Screen Detected H (NotDetected) Ur Oxycodone Screen Not Detected (NotDetected) Urine Methadone Screen Not Detected (NotDetected) Ur Barbiturates Screen Not Detected (NotDetected) U Tricyclic Antidepress Not Detected (NotDetected) Ur Phencyclidine Scrn Not Detected (NotDetected) Ur Amphetamines Screen Not Detected (NotDetected) U Methamphetamines Scrn Not Detected (NotDetected) U Benzodiazepines Scrn Detected H (NotDetected) Urine Cocaine Screen Not Detected (NotDetected) U Marijuana (THC) Screen Detected H (NotDetected) Influenza Type A (PCR) (Not Detectd) Influenza Type B (PCR) (Not Detectd) RSV (PCR) (Not Detectd) SARS-CoV-2 (PCR) (Not Detectd) 06/09/24 06/09/24 06/09/24 Range/Units 00:41 03:17 03:17 WBC 8.2 (3.8-10.6) k/uL RBC 3.85 L (4.30-5.90) m/uL Hgb 12.7 L (13.0-17.5) gm/dL Hct 38.2 L (39.0-53.0) % MCV 99.3 (80.0-100.0) fL MCH 33.0 (25.0-35.0) pg MCHC 33.2 (31.0-37.0) g/dL RDW 13.9 (11.5-15.5) % Plt Count 187 (150-450) k/uL MPV 8.6 Neutrophils % 81 % Lymphocytes % 10 % Monocytes % 8 % Eosinophils % 0 % Basophils % 0 % Neutrophils # 6.7 (1.3-7.7) k/uL Lymphocytes # 0.8 L (1.0-4.8) k/uL Monocytes # 0.6 (0-1.0) k/uL Eosinophils # 0.0 (0-0.7) k/uL Basophils # 0.0 (0-0.2) k/uL PT (10.0-12.5) sec INR (<1.2) APTT (22.0-30.0) sec Sodium 133 L (137-145) mmol/L Potassium 3.8 (3.5-5.1) mmol/L Chloride 106 (98-107) mmol/L Carbon Dioxide 20 L (22-30) mmol/L Anion Gap 7 mmol/L BUN 20 (9-20) mg/dL Creatinine 0.42 L (0.66-1.25) mg/dL Est GFR (CKD-EPI)AfAm >90 (>60 ml/min/1.73 sqM) Est GFR (CKD-EPI)NonAf >90 (>60 ml/min/1.73 sqM) Glucose 132 H (74-99) mg/dL POC Glucose (mg/dL) (70-110) mg/dL POC Glu Career Advisor ID Calcium 8.5 (8.4-10.2) mg/dL Phosphorus 3.5 (2.5-4.5) mg/dL Magnesium 1.6 (1.6-2.3) mg/dL Total Bilirubin 1.8 H (0.2-1.3) mg/dL AST 36 (17-59) U/L ALT 48 (4-49) U/L Alkaline Phosphatase 208 H (38-126) U/L Ammonia (<30) umol/L Troponin I <0.012 (0.000-0.034) ng/mL Total Protein 6.8 (6.3-8.2) g/dL Albumin 3.3 L (3.5-5.0) g/dL TSH (0.350-5.500) UIU/ML Urine Color Urine Appearance (Clear) Urine pH (5.0-8.0) Ur Specific [place] (1.001-1.035) Urine Protein (Negative) Urine Glucose (UA) (Negative) Urine Ketones (Negative) Urine Blood (Negative) Urine Nitrite (Negative) Urine Bilirubin (Negative) Urine Urobilinogen (<2.0) mg/dL Ur Leukocyte Esterase (Negative) Urine RBC (0-5) /hpf Urine WBC (0-5) /hpf Ur Squamous Epith Cells (0-4) /hpf Hyaline Casts (0-2) /lpf Urine Mucus (None) /hpf Urine Opiates Screen (NotDetected) Ur Oxycodone Screen (NotDetected) Urine Methadone Screen (NotDetected) Ur Barbiturates Screen (NotDetected) U Tricyclic Antidepress (NotDetected) Ur Phencyclidine Scrn (NotDetected) Ur Amphetamines Screen (NotDetected) U Methamphetamines Scrn (NotDetected) U Benzodiazepines Scrn (NotDetected) Urine Cocaine Screen (NotDetected) U Marijuana (THC) Screen (NotDetected) Influenza Type A (PCR) (Not Detectd) Influenza Type B (PCR) (Not Detectd) RSV (PCR) (Not Detectd) SARS-CoV-2 (PCR) (Not Detectd) 06/09/24 06/09/24 Range/Units 03:17 03:17 WBC (3.8-10.6) k/uL RBC (4.30-5.90) m/uL Hgb (13.0-17.5) gm/dL Hct (39.0-53.0) % MCV (80.0-100.0) fL MCH (25.0-35.0) pg MCHC (31.0-37.0) g/dL RDW (11.5-15.5) % Plt Count (150-450) k/uL MPV Neutrophils % % Lymphocytes % % Monocytes % % Eosinophils % % Basophils % % Neutrophils # (1.3-7.7) k/uL Lymphocytes # (1.0-4.8) k/uL Monocytes # (0-1.0) k/uL Eosinophils # (0-0.7) k/uL Basophils # (0-0.2) k/uL PT (10.0-12.5) sec INR (<1.2) APTT (22.0-30.0) sec Sodium (137-145) mmol/L Potassium (3.5-5.1) mmol/L Chloride (98-107) mmol/L Carbon Dioxide (22-30) mmol/L Anion Gap mmol/L BUN (9-20) mg/dL Creatinine (0.66-1.25) mg/dL Est GFR (CKD-EPI)AfAm (>60 ml/min/1.73 sqM) Est GFR (CKD-EPI)NonAf (>60 ml/min/1.73 sqM) Glucose (74-99) mg/dL POC Glucose (mg/dL) (70-110) mg/dL POC Glu Career Advisor ID Calcium (8.4-10.2) mg/dL Phosphorus (2.5-4.5) mg/dL Magnesium (1.6-2.3) mg/dL Total Bilirubin (0.2-1.3) mg/dL AST (17-59) U/L ALT (4-49) U/L Alkaline Phosphatase (38-126) U/L Ammonia (<30) umol/L Troponin I <0.012 (0.000-0.034) ng/mL Total Protein (6.3-8.2) g/dL Albumin (3.5-5.0) g/dL TSH 1.150 (0.350-5.500) UIU/ML Urine Color Urine Appearance (Clear) Urine pH (5.0-8.0) Ur Specific [place] (1.001-1.035) Urine Protein (Negative) Urine Glucose (UA) (Negative) Urine Ketones (Negative) Urine Blood (Negative) Urine Nitrite (Negative) Urine Bilirubin (Negative) Urine Urobilinogen (<2.0) mg/dL Ur Leukocyte Esterase (Negative) Urine RBC (0-5) /hpf Urine WBC (0-5) /hpf Ur Squamous Epith Cells (0-4) /hpf Hyaline Casts (0-2) /lpf Urine Mucus (None) /hpf Urine Opiates Screen (NotDetected) Ur Oxycodone Screen (NotDetected) Urine Methadone Screen (NotDetected) Ur Barbiturates Screen (NotDetected) U Tricyclic Antidepress (NotDetected) Ur Phencyclidine Scrn (NotDetected) Ur Amphetamines Screen (NotDetected) U Methamphetamines Scrn (NotDetected) U Benzodiazepines Scrn (NotDetected) Urine Cocaine Screen (NotDetected) U Marijuana (THC) Screen (NotDetected) Influenza Type A (PCR) (Not Detectd) Influenza Type B (PCR) (Not Detectd) RSV (PCR) (Not Detectd) SARS-CoV-2 (PCR) (Not Detectd) Disposition <Juan Carlos Schmidt - Last Filed: 06/08/24 21:49> Is patient prescribed a controlled substance at d/c from ED?: No Time of Disposition: 22:01 <Juan Carlos Hopkins - Last Filed: 06/15/24 20:33> Clinical Impression: AMS (altered mental status), Hematuria, Delirium Disposition: ADMITTED IP TO THIS HOSP Condition: Fair
[2024-06-08 18:45] LABS: Basophils % (A) 0 %; Eosinophils % (A) 0 %; HCT 40.2 % (39.0-53.0); HGB 13.6 gm/dL (13.0-17.5); Lymphocytes # (A) 0.6 k/uL (1.0-4.8); Lymphocytes % (A) 7 %; MCHC 33.8 g/dL (31.0-37.0); MCV 97.5 fL (80.0-100.0); Mean Platelet Volume 8.1; Monocytes # (A) 0.5 k/uL (0-1.0); Monocytes % (A) 6 %; Neutrophils # (A) 7.4 k/uL (1.3-7.7); Neutrophils % (A) 86 %; Platelet Count 207 k/uL (150-450); RBC 4.13 m/uL (4.30-5.90); RDW 14.1 % (11.5-15.5); WBC 8.6 k/uL (3.8-10.6)
[2024-06-08] MEDS: SODIUM CHLORIDE 0.9% 500 ML 500 ML IV ONE (18:49)
[2024-06-08] MEDS: ONDANSETRON 4 MG/2 ML VIAL IVP STA (18:50)
[2024-06-08 19:02] LABS: ALT 53 U/L (4-49); African American GFR (CKD) >90 (>60 ml/min/1.73 sqM); Blood Urea Nitrogen 17 mg/dL (9-20); Chloride 103 mmol/L (98-107); Non-African American GFR(CKD) >90 (>60 ml/min/1.73 sqM); Potassium 3.6 mmol/L (3.5-5.1); Sodium 134 mmol/L (137-145); Total Bilirubin 2.4 mg/dL (0.2-1.3)
[2024-06-08 19:14] LABS: AST 41 U/L (17-59); Albumin 3.5 g/dL (3.5-5.0); Alkaline Phosphatase 239 U/L (38-126); Anion Gap 12 mmol/L; Calcium 8.9 mg/dL (8.4-10.2); Carbon Dioxide 19 mmol/L (22-30); Glucose 139 mg/dL (74-99)
[2024-06-08 19:18] LABS: INR 1.2 (<1.2); Partial Thromboplastin Time 24.8 sec (22.0-30.0); Prothrombin Time 12.6 sec (10.0-12.5)
--- NOTE | 2024-06-08 19:19 | XR ---
EXAMINATION TYPE: XR chest 2V DATE OF EXAM: 06/08/2024 7:05 PM CLINICAL INDICATION: Male, 64 years old with history of altered mental status; [facility] COMPARISON: Chest radiographs from 05/28/2024 TECHNIQUE: XR chest 2V Frontal view of the chest. FINDINGS: Lungs/Pleura: There is no evidence of pleural effusion, focal consolidation, or pneumothorax. Pulmonary vascularity: Unremarkable. Heart/mediastinum: Cardiomediastinal silhouette is unremarkable. Musculoskeletal: No acute osseous pathology. Remote left clavicle injury. IMPRESSION: No acute cardiopulmonary disease/process. [facility] Jessica Bond, , 06/08/2024 7:16 PM
[2024-06-08] MEDS: LABETALOL SYRINGE 5 MG/ML (4 ML SYR) IVP STA (19:44)
[2024-06-08 20:30] LABS: Appearance,Urine Clear (Clear); Bilirubin,Urine Negative (Negative); Blood,Urine Moderate (Negative); Color,Urine Yellow; Glucose,Urine (UA) Negative (Negative); Hyaline Casts,Urine 3 /lpf (0-2); Ketones,Urine 2+ (Negative); Leukocyte Esterase,Urine Negative (Negative); Mucus,Urine Few /hpf; Nitrite,Urine Negative (Negative); PH, Urine 6.5 (5.0-8.0); Protein,Urine Trace (Negative); RBC,Urine 79 /hpf (0-5); Squamous Epithelial Cell,Urine <1 /hpf (0-4); WBC,Urine 3 /hpf (0-5)
[2024-06-08] MEDS: LORazepam 2 MG/ML INJ IV STA (20:58)
--- NOTE | 2024-06-08 21:54 | CT ---
EXAMINATION TYPE: CT abdomen pelvis wo con CT DLP: 739.5 mGycm, Automated exposure control for dose reduction was used. DATE OF EXAM: 06/08/2024 9:30 PM COMPARISON: 05/20/2024. CLINICAL INDICATION: Male, 64 years old with history of Hematuria; Pt comes to with complaint of n ausea and " I feel cold". Pt is at [facility] for rehab after having a recent [place]. Pt denies any chest pa in, SOB, abd pain, at this time. TECHNIQUE: Axial CT abdomen pelvis wo con;Sagittal and coronal reformats were created on a separate workstation. Contrast used: mL of , (none if empty) Oral contrast used: without Oral Contrast (none if empty) FINDINGS: LOWER CHEST: Unremarkable ABDOMEN LIVER: Nodular contour to liver with caudate lobe hypertrophy.r GALLBLADDER AND BILE DUCTS: Unremarkable. PANCREAS: Unremarkable. SPLEEN: Enlarged measuring up to 17.7 cm ADRENAL GLANDS: Unremarkable. KIDNEYS AND URETERS: Bilateral renal calculi measuring up to 4 mm on the left and 12 mm on the right. The right renal calculus may be partially obstructing right renal calyces it is located in the renal pelvis. No obstructing left renal calculi. PELVIS BLADDER: Unremarkable REPRODUCTIVE: Prostate is enlarged in size measuring 4.5 cm in transverse dimension. ABDOMEN & PELVIS STOMACH AND BOWEL: No evidence of bowel obstruction. PERITONEUM/RETROPERITONEUM: No evidence of pneumoperitoneum or free fluid. VASCULATURE: No evidence of aortic aneurysm. MUSCULOSKELETAL: No acute osseous abnormalities LYMPH NODES: No gross evidence for lymphadenopathy. SOFT TISSUE/ABDOMINAL WALL: Unremarkable IMPRESSION: 1. No evidence for acute process. 2. Hepatic cirrhosis with evidence of portal hypertension prostatomegaly. 3. Bilateral renal calculi the right renal calculus in the renal pelvis may be partially obstructing inferior renal calyces. 4. Colonic diverticulosis. 5. Prostatomegaly, correlate with serum PSA. [facility], , 06/08/2024 9:52 PM
[2024-06-08] MEDS ORDERED: NALOXONE 0.4 MG/ML 1 ML VIAL IV PRN (21:59)
[2024-06-08 22:26] LABS: Glucose,Whole Blood 158 mg/dL (70-110)
[2024-06-08 23:07] LABS: Amphetamine Screen,Urine Not Detected (NotDetected); Barbiturate Screen,Urine Not Detected (NotDetected); Benzodiazepines Screen,Urine Detected (NotDetected); Cocaine Screen,Urine Not Detected (NotDetected); Methadone Screen, Urine Not Detected (NotDetected); Opiate Screen,Urine Detected (NotDetected); Oxycodone Screen, Urine Not Detected (NotDetected); Phencyclidine Screen,Urine Not Detected (NotDetected); Tricyclic Antidepressant,Urine Not Detected (NotDetected); Urn Cannabinoid Scrn Detected (NotDetected)
[2024-06-09 03:37] LABS: ALT 48 U/L (4-49); AST 36 U/L (17-59); African American GFR (CKD) >90 (>60 ml/min/1.73 sqM); Albumin 3.3 g/dL (3.5-5.0); Alkaline Phosphatase 208 U/L (38-126); Anion Gap 7 mmol/L; Blood Urea Nitrogen 20 mg/dL (9-20); Calcium 8.5 mg/dL (8.4-10.2); Carbon Dioxide 20 mmol/L (22-30); Chloride 106 mmol/L (98-107); Glucose 132 mg/dL (74-99); Magnesium 1.6 mg/dL (1.6-2.3); Non-African American GFR(CKD) >90 (>60 ml/min/1.73 sqM); Phosphorus 3.5 mg/dL (2.5-4.5); Potassium 3.8 mmol/L (3.5-5.1); Sodium 133 mmol/L (137-145); Total Bilirubin 1.8 mg/dL (0.2-1.3); Total Protein 6.8 g/dL (6.3-8.2)
[2024-06-09 04:03] LABS: Basophils % (A) 0 %; Eosinophils % (A) 0 %; HCT 38.2 % (39.0-53.0); HGB 12.7 gm/dL (13.0-17.5); Lymphocytes # (A) 0.8 k/uL (1.0-4.8); Lymphocytes % (A) 10 %; MCHC 33.2 g/dL (31.0-37.0); MCV 99.3 fL (80.0-100.0); Mean Platelet Volume 8.6; Monocytes # (A) 0.6 k/uL (0-1.0); Monocytes % (A) 8 %; Neutrophils # (A) 6.7 k/uL (1.3-7.7); Neutrophils % (A) 81 %; Platelet Count 187 k/uL (150-450); RBC 3.85 m/uL (4.30-5.90); RDW 13.9 % (11.5-15.5); WBC 8.2 k/uL (3.8-10.6)
[2024-06-09] MEDS ORDERED: HYDROcodone/APAP 5-325MG 1 EACH TAB PO PRN (05:56)
[2024-06-09] MEDS: BACLOFEN 10 MG TAB PO SCH ×2 (06:17→22:58)
[2024-06-09] MEDS: PANTOPRAZOLE 40 MG TABLET PO SCH (06:17)
[2024-06-09] MEDS: ESCITALOPRAM 20 MG TAB PO SCH (07:44)
[2024-06-09] MEDS: ALPRAZolam 0.25 MG TAB PO SCH ×2 (07:44→22:58)
[2024-06-09] MEDS: FOLIC ACID 1 MG TAB PO SCH (07:44)
[2024-06-09] MEDS: METOPROLOL TARTRATE 25 MG TAB PO SCH (07:44)
[2024-06-09] MEDS: PYRIDOXINE 50 MG TAB PO SCH (07:44)
[2024-06-09] MEDS: ATORVASTATIN 40 MG TAB PO SCH (07:44)
[2024-06-09] MEDS: ASPIRIN 81 MG PO SCH (07:44)
[2024-06-09] MEDS: levETIRAcetam 500 MG TAB PO SCH ×2 (07:44→22:58)
[2024-06-09] MEDS ORDERED: NA PHOS,M-B/NA PHOS,DI-BA 133 ML ENEMA RECTAL PRN (09:00)
[2024-06-09] MEDS ORDERED: bisacodyL 10 MG SUPP RECTAL PRN (09:00)
[2024-06-09] MEDS ORDERED: MAGNESIUM HYDROXIDE 2,400 MG/30 ML CUP PO PRN (09:00)
--- NOTE | 2024-06-09 11:16 | P.CRDCN ---
History of Present Illness History of present illness: HISTORY OF PRESENT ILLNESS: This is a 64-year-old male with a past medical history significant for coronary artery disease with previous stenting of the RCA, hypertension, and hyperlipide fredy. Patient follows in the office with Dr. Robles. We have been asked to see the patient in consultation for chest pain. Patient examined at the bedside in the emergency room. Patient was recently hospitalized earlier this month due to altered mental status and sepsis. Patient also had acute hypoxic respiratory failure and required mechanical ventilation. Patient was discharged to [facility]. He states he is not sure why he was brought back to the emergency room yesterday from his ECF. According to ER documentation, the patient was brought to the hospital for nausea, high blood pressure, and restlessness. The patient is currently alert and oriented at the time of examination. The patient denies having any chest pain or pressure. He denies shortness of breath. Bedside telemetry reveals sinus mechanism with heart rate in the 90s. DIAGNOSTICS: - EKG reveals sinus tachycardia with heart rate of 101. - Chest xray negative for acute process. -CT abdomen pelvis: Negative for acute process. Hepatic cirrhosis with evidence of portal hypertension. Bilateral renal calculi the right renal calculus in the renal pelvis may be partially obstructing inferior renal calyces, colonic diver ticulosis and prostatomegaly - Laboratory data: WBC 8.2. Hemoglobin 12.7. Platelet count 187. Sodium 133. Potassium 3.8. BUN 20. Creatinine 0.42. Troponin negative x 3. - Current home cardiac medications include aspirin 81 mg daily, atorvastatin 40 mg daily, metoprolol tartrate 25 mg twice a day - Most recent echocardiogram obtained on May 20, 2024 revealed ejection fraction 60 to 65%, no obvious regional wall motion abnormalities, and no significant valvular abnormalities noted. - Cardiac catheterization history: April 2023 revealing patent stent in the RCA. Unchanged left coronary system. REVIEW OF SYSTEMS: At the time of my exam: CONSTITUTIONAL: Denies fever or chills. HEENT: Denies blurred vision, vision changes, or eye pain. Denies hemoptysis CARDIOVASCULAR: Denies chest pain. Denies orthopnea. Denies PND. Denies palpitations RESPIRATORY: Denies shortness of breath. GASTROINTESTINAL: Denies abdominal pain. Denies nausea or vomiting. HEMATOLOGIC: Denies bleeding disorders. GENITOURINARY: Denies any blood in urine. SKIN: Denies pruitis. Denies rash. PHYSICAL EXAM: VITAL SIGNS: Reviewed. GENERAL: Well-developed in no acute distress. HEENT: Head is normocephalic. Pupils are equal, round. Sclerae anicteric. Mucous membranes of the mouth are moist. Neck supple. No JVD or thyromegaly LUNGS: Respirations even and unlabored. Lungs essentially clear to auscultation bilaterally. HEART: Regular rate and rhythm. S1 and S2 heard. ABDOMEN: Soft. Nondistended. Nontender. EXTREMITIES: Normal range of motion. No clubbing or cyanosis. Peripheral pulses intact. No lower extremity edema NEUROLOGIC: Awake and alert. Oriented x 3. ASSESSMENT: Reported nausea, patient currently denies Chest pain, ruled out, patient denies Bilateral renal calculi with possible right obstructing calculi Hepatic cirrhosis with evidence of portal hypertension Recent admission for sepsis Coronary artery disease with previous stenting of the RCA, 10/2022 Hypertension Hyperlipidemia PLAN: An acute coronary event has been ruled out Patient denies having any chest pain or pressure prior to coming to the hospital or this morning during examination Resume home cardiac medications Patient with no active cardiac concerns at this time Nurse practitioner note has been reviewed by physician. Signing provider agrees with the documented findings, assessment, and plan of care documented by [employer] as a scribe. Past Medical History Past Medical History: Coronary Artery Disease (CAD), GERD/Reflux, Hypertension, Myocardial Infarction ([place]) Additional Past Medical History / Comment(s): headaches, borderline anemic, "low iron", "low WBC's", past acid refux, Last Myocardial Infarction Date:: History of Any Multi-Drug Resistant Organisms: None Reported Past Surgical History: Heart Catheterization With Stent, Hernia Repair, Orthopedic Surgery Additional Past Surgical History / Comment(s): beau knee arthroscopy, beau knee surgery as teen, Past Anesthesia/Blood Transfusion Reactions: No Reported Reaction Date of Last Stent Placement:: 11/12/2022 Past Psychological History: Anxiety Smoking Status: Current every day smoker Past Alcohol Use History: None Reported Past Drug Use History: None Reported - Past Family History Father Family Medical History: Cancer Mother Family Medical History: Dementia Medications and Allergies Home Medications Medication Instructions Recorded Confirmed Type Baclofen [Lioresal] 10 mg PO TID@06,14,11/12/22 06/08/24 History Escitalopram [Lexapro] 20 mg PO DAILY@0800 11/12/22 06/08/24 History Atorvastatin [Lipitor] 40 mg PO DAILY@0800 04/03/23 06/08/24 History HYDROcodone/APAP 5-325MG [[place] 1 tab PO Q12H PRN 05/07/23 06/08/24 History 5-325] Metoprolol Tartrate [Lopressor] 25 mg PO BID@0800,1700 05/20/24 06/08/24 History Acetaminophen Tab [Tylenol] 650 mg PO Q6HR PRN tab 05/31/24 06/08/24 Rx ALPRAZolam [Xanax XR] 0.5 mg PO BID@0800,2100 06/08/24 06/08/24 History Aspirin 81 mg PO DAILY@0800 06/08/24 06/08/24 History Folic Acid 1 mg PO DAILY@0800 06/08/24 06/08/24 History Magnesium Hydroxide [Milk of 7,200 mg PO DAILY PRN 06/08/24 06/08/24 History Magnesia Concentrate] Na Phos,M-B/Na Phos,Di-Ba [Fleet 133 ml RECTAL DAILY PRN 06/08/24 06/08/24 H istory Adult] Pantoprazole Sodium [Protonix] 40 mg PO DAILY@0600 06/08/24 06/08/24 History Pyridoxine [Vitamin B-6] 50 mg PO DAILY@0800 06/08/24 06/08/24 History bisacodyL [Dulcolax] 10 mg RECTAL DAILY PRN 06/08/24 06/08/24 History levETIRAcetam [Keppra] 500 mg PO BID@0800,2100 06/08/24 06/08/24 History Allergies Allergy/AdvReac Type Severity Reaction Status Date / Time No Known Allergies Allergy Verified 06/08/24 20:22 Physical Exam Vitals: Vital Signs Temp Pulse Resp BP Pulse Ox 06/09/24 08:36 89 20 06/09/24 05:38 114 H 16 134/79 99 06/09/24 02:08 113 H 20 152/105 06/09/24 00:17 111 H 16 151/102 97 06/08/24 20:41 98.4 F 99 20 152/84 97 06/08/24 20:00 153/98 06/08/24 18:52 85 16 188/120 97 06/08/24 18:18 98 F 100 18 172/117 100 Intake and Output 06/08/24 06/09/24 06/09/24 22:59 06:59 14:59 Other: Weight 210 kg Results 06/09/24 03:17 06/09/24 03:17 Cardiac Enzymes 06/08/24 06/08/24 06/09/24 Range/Units 18:30 18:30 00:41 AST 41 (17-59) U/L Troponin I <0.012 <0.012 (0.000-0.034) ng/mL 06/09/24 06/09/24 Range/Units 03:17 03:17 AST 36 (17-59) U/L Troponin I <0.012 (0.000-0.034) ng/mL Coagulation 06/08/24 Range/Units 18:30 PT 12.6 H (10.0-12.5) sec APTT 24.8 (22.0-30.0) sec CBC 06/08/24 06/09/24 Range/Units 18:30 03:17 WBC 8.6 8.2 (3.8-10.6) k/uL RBC 4.13 L 3.85 L (4.30-5.90) m/uL Hgb 13.6 12.7 L (13.0-17.5) gm/dL Hct 40.2 38.2 L (39.0-53.0) % Plt Count 207 187 (150-450) k/uL Comprehensive Metabolic Panel 06/08/24 06/09/24 Range/Units 18:30 03:17 Sodium 134 L 133 L (137-145) mmol/L Potassium 3.6 3.8 (3.5-5.1) mmol/L Chloride 103 106 (98-107) mmol/L Carbon Dioxide 19 L 20 L (22-30) mmol/L BUN 17 20 (9-20) mg/dL Creatinine 0.53 L 0.42 L (0.66-1.25) mg/dL Glucose 139 H 132 H (74-99) mg/dL Calcium 8.9 8.5 (8.4-10.2) mg/dL AST 41 36 (17-59) U/L ALT 53 H 48 (4-49) U/L Alkaline Phosphatase 239 H 208 H (38-126) U/L Total Protein 7.0 6.8 (6.3-8.2) g/dL Albumin 3.5 3.3 L (3.5-5.0) g/dL Current Medications Generic Name Dose Route Start Last Admin Trade Name Freq PRN Reason Stop Dose Admin Acetaminophen 650 mg 06/09/24 05:56 Acetaminophen Tab 325 Mg Tab PO Q6HR PRN Fever and/ or Pain Hydrocodone Bitart/Acetaminophen 1 each 06/09/24 05:56 Hydrocodone/Apap 5-325mg 1 Each Tab PO Q12H PRN Pain Alprazolam 0.25 mg 06/09/24 08:00 06/09/24 08:07 Alprazolam 0.25 Mg Tab PO Not Given QID [facility] Aspirin 81 mg 06/09/24 08:00 06/09/24 07:44 Aspirin 81 Mg PO 81 mg DAILY@0800 [facility] Administration Atorvastatin Calcium 40 mg 06/09/24 08:00 06/09/24 07:44 Atorvastatin 40 Mg Tab PO 40 mg DAILY@0800 [facility] Administration Baclofen 10 mg 06/09/24 06:00 06/09/24 06:17 Baclofen 10 Mg Tab PO 10 mg TID@ [facility] Administration Bisacodyl 10 mg 06/09/24 09:00 Bisacodyl 10 Mg Supp RECTAL DAILY PRN Constipation Escitalopram Oxalate 20 mg 06/09/24 08:00 06/09/24 07:44 Escitalopram 20 Mg Tab PO 20 mg DAILY@0800 [facility] Administration Folic Acid 1 mg 06/09/24 08:00 06/09/24 07:44 Folic Acid 1 Mg Tab PO 1 mg DAILY@0800 [facility] Administration Levetiracetam 500 mg 06/09/24 08:00 06/09/24 07:44 Levetiracetam 500 Mg Tab PO 500 mg BID@0800,2100 [facility] Administration Magnesium Hydroxide 2,400 mg 06/09/24 09:00 Magnesium Hydroxide 2,400 Mg/30 Ml Cup PO DAILY PRN Constipation Metoprolol Tartrate 50 mg 06/09/24 17:00 Metoprolol Tartrate 50 Mg Tab PO BID@0800,1700 [facility] Naloxone HCl 0.2 mg 06/08/24 21:59 Naloxone 0.4 Mg/Ml 1 Ml Vial IV Q2M PRN Opioid Reversal Ondansetron HCl 4 mg 06/08/24 21:59 Ondansetron 4 Mg/2 Ml Vial IVP Q8HR PRN Nausea And Vomiting Pantoprazole Sodium 40 mg 06/09/24 06:00 06/09/24 06:17 Pantoprazole 40 Mg Tablet PO 40 mg DAILY@0600 [facility] Administration Pyridoxine HCl 50 mg 06/09/24 08:00 06/09/24 07:44 Pyridoxine 50 Mg Tab PO 50 mg DAILY@0800 [facility] Administration Sodium Biphosphate/Sodium Phosphate 133 ml 06/09/24 09:00 Na Phos,M-B/Na Phos,Di-Ba 133 Ml Enema RECTAL DAILY PRN Constipation Intake and Output 06/08/24 06/09/24 06/09/24 22:59 06:59 14:59 Other: Weight 210 kg 06/09/24 03:17 06/09/24 03:17
--- NOTE | 2024-06-09 13:14 | P.HPIM ---
History of Present Illness H&P Date: 06/09/24 HISTORY OF PRESENT ILLNESS: 64-year-old one of my office patient for many years with active medical history of CAD post PCI and stent placement of the RCA back in October 2022, history of chronic clinical hepatitis with early cirrhosis, history of chronic lower back pain with spinal stenosis, hypertension, hyperlipidemia, hyperglycemia, chronic lower back pain, recurrent pancreatitis, chronic history of neuropathy of the lower extremity, chronic kidney disease stage III, with history of BPH mild anxiety and edema was hospitalized recently for over 10 days for atypical s eizure and decreased level of consciousness was on mechanical ventilation for an extended period of time then extubated and improved but continued to have significant change in mentation and memory with slight confusion. Physically had improved some but continue not to act himself like before. Patient was transferred to [facility] for short-term rehab over a week ago has been doing well yesterday was visited by his family when they all decided he is not acting himself and they insisted the nurse have him transferred to the emergency department at [facility] where was seen and evaluated all testing including CAT scan of the brain failed to show any abnormality family kept insisting that he is in pain. Patient is not he is still confused still have worsening mentation compared to his baseline earlier but improved compared to a week ago. Family refused to have him transferred back to [facility] and insisted on patient hospitalized. Patient vitals remained stable his pulse rate is little bit elevated around 100 mg slight agitated at the time but CBC chemistry troponin remain normal drug screen shows benzo and marijuana with. Patient is on pain meds but not quite sure where his marijuana came from. Rest of his lab including UA came with some red blood cell being slightly red at normal. CAT scan of the abdomen failed to show any sign of kidney stone or acute process showing hepatic cirrhosis with portal hypertension and bilateral renal calculi the right renal pelvis may be partially obstructed with a stone there is colonic diverticulosis with enlarged prostate. Still with the hematuria and the current finding he is alternative status can be blamed on marijuana interact with his regular medication also his abdominal pain can be blamed on right-sided stone causing hematuria and symptoms. Will consult urology for the hematuria and the stone and he has to have a talk with the family as I do not believe patient is able to make a decision at this point when another. REVIEW OF SYSTEMS: CONSTITUTIONAL: Well-developed slightly confused no acute respiratory distress EYES: No icterus sclerae, no conjunctivitis. EARS, NOSE, MOUTH, THROAT, and FACE: No sore throat, lymphadenopathy, carotid bruits or deformity. ET tube. RESPIRATORY: No SOB cough or wheezes. CARDIOVASCULAR: No chest pain angina or shortness of breath slight tachycardia. GASTROINTESTINAL: Soft positive bowel sounds slight discomfort in the left lower quadrant area and right upper quadrant area as well no rebound or rigidity. GENITOURINARY: Negative for Hematuria or UTI, no kidney stones. INTEGUMENT/BREAST: Negative for any muscular injury with mild osteoarthritis.. HEMATOLOGIC/LYMPHATIC: Negative for bleed or purpura. MUSCULOSKELTAL: Negative for Myalgia or arthralgia. NEURLOGICAL: Alert with mild confusion moving all his 4 extremity. BEHAVIORAL/PSYCH: Negative. ENDOCRINE: Negative. PHYSICAL EXAMINATION: General Appearance: Alert oriented with slight confusion in no distress Neck HEENT: Supple, no lymphadenopathy, no thyroid enlargement, no carotid bruits. Lungs: Decreased breath sound bilaterally fine rhonchi mild expiratory wheezes. Chest Wall: Decreased expansion with deep inspiration no tenderness and no deformity was found on exam, no costochondral pain or discomfort. Heart: Regular rate and rhythm, S1, S2 normal, no murmur, rub or gallop. Back: Symmetric, no curvature, ROM normal, no CVA tenderness. Abdomen: Soft with slight distention and slight left lower quadrant and mid abdominal region discomfort with no rebound or rigidity. Extremities: Extremities normal, atraumatic, no cyanosis or edema. Pulses: 2+ and symmetric. Skin: Skin color, texture, tugor normal, no rashes or lesions. Neurologic: Alert oriented to person and place not to time moving all his 4 EXTR with generalized weakness no focal deficit. ASSESSMENT AND PLAN: _Altered mental status: No sign of stroke or mini stroke there is a slight interaction chemical with him probably marijuana and his current medication not clear where patient has his marijuana while he is in [facility] again still need to be question specially family and patient himself fungus who is not able to tell much. Continue hydration to allow patient to recover from this and see if he is at least close to his baseline. In the meanwhile his agitation can be subtle with a use probably of mild dose of benzodiazepine and patient will be seen neurology. _Seizure: Was treated from last time for seizures still on Keppra currently with no sign of seizure. _Recurrent abdominal pain with finding of kidney stone on the right side with hematuria, will consult urology and ultrasound of the abdomen will be done. _Ischemic heart disease with no new onset of angina or heart attack from his last admission has been clear was seen cardiology as well. History of atherosclerotic heart disease: Post angioplasty and stent placement. _Tachycardia: Will titrate metoprolol to tartrate from 25 mg twice a day to 50 mg twice a day. 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 _Severe GERD: Remain on proton pump inhibitor. _Metabolic encephalopathy: Has not been clear since his admission last time continue to have years with more trouble with slight confusion continue conservative management continue to watch patient daily more carefully. _Chronic lower back pain post surgical intervention: Remain on pain meds and muscle relaxer at this point. _Gastroparesis: Has been on Protonix and Reglan in the past with good follow-up. _Hypertension: Remain on metoprolol titrate 25 mg twice a day his blood pressure still high will add smaller dose of ARB. _Hyperlipidemia: Remain on Lipitor 40 mg a day. _Chronic depression anxiety attacks has been on escitalopram 20 and alprazolam 0.5 mg twice a day. DVT prophylaxis: Will be on heparin subcutaneous. CODE STATUS: Full code. Admit patient to the inpatient service for more than 2 night stay Past Medical History Past Medical History: Coronary Artery Disease (CAD), GERD/Reflux, Hypertension, Myocardial Infarction ([place]) Additional Past Medical History / Comment(s): headaches, borderline anemic, "low iron", "low WBC's", past acid refux, Last Myocardial Infarction Date:: History of Any Multi-Drug Resistant Organisms: None Reported Past Surgical History: Heart Catheterization With Stent, Hernia Repair, Orthopedic Surgery Additional Past Surgical History / Comment(s): beau knee arthroscopy, beau knee surgery as teen, Past Anesthesia/Blood Transfusion Reactions: No Reported Reaction Date of Last Stent Placement:: 11/12/2022 Past Psychological History: Anxiety Smoking Status: Current every day smoker Past Alcohol Use History: None Reported Past Drug Use History: None Reported - Past Family History Father Family Medical History: Cancer Mother Family Medical History: Dementia Medications and Allergies Home Medications Medication Instructions Recorded Confirmed Type Baclofen [Lioresal] 10 mg PO TID@06,14,22 03/28/23 10/22/24 History Escitalopram [Lexapro] 20 mg PO DAILY@0800 11/12/22 06/08/24 History Atorvastatin [Lipitor] 40 mg PO DAILY@0800 04/03/23 06/08/24 History HYDROcodone/APAP 5-325MG [[place] 1 tab PO Q12H PRN 05/07/23 06/08/24 History 5-325] Metoprolol Tartrate [Lopressor] 25 mg PO BID@0800,1700 05/20/24 06/08/24 History Acetaminophen Tab [Tylenol] 650 mg PO Q6HR PRN tab 05/31/24 06/08/24 Rx ALPRAZolam [Xanax XR] 0.5 mg PO BID@0800,2100 06/08/24 06/08/24 History Aspirin 81 mg PO DAILY@0800 06/08/24 06/08/24 History Folic Acid 1 mg PO DAILY@0800 06/08/24 06/08/24 History Magnesium Hydroxide [Milk of 7,200 mg PO DAILY PRN 06/08/24 06/08/24 History Magnesia Concentrate] Na Phos,M-B/Na Phos,Di-Ba [Fleet 133 ml RECTAL DAILY PRN 06/08/24 06/08/24 History Adult] Pantoprazole Sodium [Protonix] 40 mg PO DAILY@0600 06/08/24 06/08/24 History Pyridoxine [Vitamin B-6] 50 mg PO DAILY@0800 06/08/24 06/08/24 History bisacodyL [Dulcolax] 10 mg RECTAL DAILY PRN 06/08/24 06/08/24 History levETIRAcetam [Keppra] 500 mg PO BID@0800,2100 06/08/24 06/08/24 History Allergies Allergy/AdvReac Type Severity Reaction Status Date / Time No Known Allergies Allergy Verified 06/08/24 20:22 Physical Exam Vitals: Vital Signs Temp Pulse Resp BP Pulse Ox 06/09/24 05:38 114 H 16 134/79 99 06/09/24 02:08 113 H 20 152/105 06/09/24 00:17 111 H 16 151/102 97 06/08/24 20:41 98.4 F 99 20 152/84 97 06/08/24 20:00 153/98 06/08/24 18:52 85 16 188/120 97 06/08/24 18:18 98 F 100 18 172/117 100 Intake and Output 06/08/24 06/08/24 06/09/24 14:59 22:59 06:59 Other: Weight 210 kg Results CBC & Chem 7: 06/09/24 03:17 06/09/24 03:17 Labs: Abnormal Lab Results - Last 24 Hours (Table) 06/08/24 06/08/24 06/08/24 Range/Units 18:30 18:30 18:30 RBC 4.13 L (4.30-5.90) m/uL Hgb (13.0-17.5) gm/dL Hct (39.0-53.0) % Lymphocytes # 0.6 L (1.0-4.8) k/uL PT 12.6 H (10.0-12.5) sec INR 1.2 H (<1.2) Sodium 134 L (137-145) mmol/L Carbon Dioxide 19 L (22-30) mmol/L Creatinine 0.53 L (0.66-1.25) mg/dL Glucose 139 H (74-99) mg/dL POC Glucose (mg/dL) (70-110) mg/dL Total Bilirubin 2.4 H (0.2-1.3) mg/dL ALT 53 H (4-49) U/L Alkaline Phosphatase 239 H (38-126) U/L Albumin (3.5-5.0) g/dL Urine Protein (Negative) Urine Ketones (Negative) Urine Blood (Negative) Urine RBC (0-5) /hpf Hyaline Casts (0-2) /lpf Urine Mucus (None) /hpf Urine Opiates Screen (NotDetected) U Benzodiazepines Scrn (NotDetected) U Marijuana (THC) Screen (NotDetected) 06/08/24 06/08/24 06/08/24 Range/Units 20:17 20:17 22:25 RBC (4.30-5.90) m/uL Hgb (13.0-17.5) gm/dL Hct (39.0-53.0) % Lymphocytes # (1.0-4.8) k/uL PT (10.0-12.5) sec INR (<1.2) Sodium (137-145) mmol/L Carbon Dioxide (22-30) mmol/L Creatinine (0.66-1.25) mg/dL Glucose (74-99) mg/dL POC Glucose (mg/dL) 158 H (70-110) mg/dL Total Bilirubin (0.2-1.3) mg/dL ALT (4-49) U/L Alkaline Phosphatase (38-126) U/L Albumin (3.5-5.0) g/dL Urine Protein Trace H (Negative) Urine Ketones 2+ H (Negative) Urine Blood Moderate H (Negative) Urine RBC 79 H (0-5) /hpf Hyaline Casts 3 H (0-2) /lpf Urine Mucus Few H (None) /hpf Urine Opiates Screen Detected H (NotDetected) U Benzodiazepines Scrn Detected H (NotDetected) U Marijuana (THC) Screen Detected H (NotDetected) 06/09/24 06/09/24 Range/Units 03:17 03:17 RBC 3.85 L (4.30-5.90) m/uL Hgb 12.7 L (13.0-17.5) gm/dL Hct 38.2 L (39.0-53.0) % Lymphocytes # 0.8 L (1.0-4.8) k/uL PT (10.0-12.5) sec INR (<1.2) Sodium 133 L (137-145) mmol/L Carbon Dioxide 20 L (22-30) mmol/L Creatinine 0.42 L (0.66-1.25) mg/dL Glucose 132 H (74-99) mg/dL POC Glucose (mg/dL) (70-110) mg/dL Total Bilirubin 1.8 H (0.2-1.3) mg/dL ALT (4-49) U/L Alkaline Phosphatase 208 H (38-126) U/L Albumin 3.3 L (3.5-5.0) g/dL Urine Protein (Negative) Urine Ketones (Negative) Urine Blood (Negative) Urine RBC (0-5) /hpf Hyaline Casts (0-2) /lpf Urine Mucus (None) /hpf Urine Opiates Screen (NotDetected) U Benzodiazepines Scrn (NotDetected) U Marijuana (THC) Screen (NotDetected)
--- NOTE | 2024-06-09 14:44 | P.CN ---
Psychiatric Consult - . Consult date: 06/09/24 Consult:: 06/09/24 14:02 IDENTIFYING DATA: This patient is a 64-year-old male, , was coming from [facility], he is and he has 2 kids. REASON FOR REFERRAL: Psychiatry was consulted for AMS HISTORY OF PRESENT ILLNESS: The patient presented to the hospital initially on 06/08 coming from the half-way. Patient apparently has demonstrating restlessness hypertension and nausea. Patient was also noticed to be confused by primary team. Patient had a abdominal CT scan which showed hepatic cirrhosis and renal calculi. Urinary analysis was negative UDS was positive for benzodiazepines and THC. Patient's ammonia level was below 9. Nurse claims that patient has been doing better today compared to yesterday in terms of confusion. He was seen today and agreeable to speak to sba underwriter in his room. He correctly identified the date, his name and age, he did hesitate with the location however was able to name the hospital and the location. He claims that he does not know what had occurred before coming to the hospital. He claims that he "passed out". States that it is happened about 3 or 4 times in the past. He seemed to be a fairly poor historian. He claims that his mood is "all right" and denied any anxiety at this time. He states that he spoke with his today who she claims that he is doing better. States that his sleep is on and off and appetite is on and off. He could not spell "world" backwards. He w as not able to recall 0 out of 3 words after 5 minutes. At this time patient denies any suicidal or homical ideations, intent or plan. Patient denies any auditory, visual hallucinations and denies any paranoia or delusions. Patients admits to using no recreational drugs or substances. He states that he does not know how the THC got into his system. PAST PSYCHIATRIC HISTORY: Patient claims that he has no previous psychiatric history. He is currently on Xanax and also Lexapro. Patient denies any previous psychiatric hospitalizations. Patient denies any psychiatric outpatient follow-up. Patient denies any history of suicide attempts in the past. Past Medical History: Coronary Artery Disease (CAD), GERD/Reflux, Hypertension, Myocardial Infarction ([place]) Additional Past Medical History / Comment(s): headaches, borderline anemic, "low iron", "low WBC's", past acid refux, Last Myocardial Infarction Date:: History of Any Multi-Drug Resistant Organisms: None Reported Past Surgical History: Heart Catheterization With Stent, Hernia Repair, Orthopedic Surgery Additional Past Surgical History / Comment(s): beau knee arthroscopy, beau knee surgery as teen, Past Anesthesia/Blood Transfusion Reactions: No Reported Reaction Date of Last Stent Placement:: 11/12/2022 Past Psychological History: Anxiety Smoking Status: Current every day smoker Past Alcohol Use History: None Reported Past Drug Use History: None Reported ALLERGIES: as per EMR. CHEMICAL DEPENDENCY HISTORY: as per HPI. FAMILY PSYCHIATRIC/SUBSTANCE USE HISTORY: Denies SOCIAL HISTORY: Patient was born and raised in [facility]. 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 Claims that he retired, denied any legal history. States that he is he has 2 kids. Was coming from a half-way. MENTAL STATUS EXAM: General Appearance: Patient appears to be thin, bald, stated age is alert, pleasant, and attempts to be cooperative. Patient appears to have fair hygiene and grooming wearing hospital gown with fair eye contact. Behavior: Patient is calmly lying in bed without any agitated behavior. Attempts to cooperate. Speech: Patient's speech is fluent and nonpressured. Hesitant at times Mood/Affect: Patient reports their mood is "good", affect is congruent Suicidality/Homicidality: Patient denies having any suicidal or homicidal ideation intent or plan. Perceptions: Patient denies any visual hallucinations and denies any auditory hallucinations Though content/process: There is no evidence of any delusional thought content and thought process is linear and goal-directed. Hesitant at times, rambles. Memory and concentration: AOX3, grossly intact for the purposes of this session. Can spell "WORLD" backwards Judgment and insight: Mildly limited, improving IMPRESSIONS: delirium, likely secondary to multiple etiologies including toxic metabolic and possibly medications depressive disorder NOS PLAN: -At this time patient DOES NOT meet criteria for inpatient psychiatric admission. -Delirium precautions recommended with patient including - avoiding use of narcotics and RE[employer] HEAD sedatives, limit anticholinergic medications when possible, frequent re-orientation, minimize use of restraints, open window shades during the day and close them at night -Would recommend the following medication changes/additions: would recoemmend limiting and titrating down xanax as this medication could precipitate episodes of delirium and possibly cause a fall. Can continue with Lexapro 20 mg daily for mood/anxiety. Will decrease dose of baclofen. Add melatonin 6 mg nightly for sleep -automobile body worker to provide patient with outpatient mental health/psychiatry resources for appropriate follow up upon discharge -News Videotape Editor spoke with patient about substance abuse and the harmful effects on medical and mental health, patient verbally understood and agreed. -Communicated plan to patient's nurse -Psychiatry will sign off at this time -Please contact with any questions. 06/09/24 14:36
[2024-06-09] MEDS: METOPROLOL TARTRATE 50 MG TAB PO SCH (16:39)
--- NOTE | 2024-06-09 16:41 | P.CNNES ---
History of Present Illness Consult date: 06/09/24 Requesting physician: Juan Carlos Hopkins Reason for Consult: ams History of Present Illness: This is a 64-year-old gentleman with new onset seizure versus convulsive syncope of unclear cause, folate deficiency, coronary artery disease, liver disease, chronic low back pain, hypertension, depression presented emergency department on 06/08/2024 from his nursing facility because of passing out episode. Patient stated that he does not recall what happened and only remembers is being in the ambulance and come to this hospital. He denies any auras prior to the episode or after. He denies any chest pain. Denies any urinary or bowel incontinence or tongue bite. Per the ED note it seems that the patient had nausea restless high blood pressure from the certain nursing facility. Recent fall. Patient denies any history of seizures. He is not aware if he is on any antiseizure medication and upon reviewing his medical record his home medication consist of Keppra 500 twice a day. Seems the patient was evaluated by Dr. Olvera On May 20, 2024 last seen on by per May 30, 2024. It seems he had altered mental status is unclear cause. He felt possible toxic metabolic cause. He had a CSF study which was unremarkable. He had a total of EEGs which were negative for any seizure or discharges. He also had 3 CT of the head which were unremarkable for any acute process. The last EEG study was somewhat limited but it seems that the patient had intermittent left temporal dysrhythmic slowing in the delta theta range. Otherwise no Epifoam activity was seen. Please refer to our team's note for further details. Next Some of the workup during this hospital visit consisted of: White blood cell is within normal limits. Sodium is 134, glucose is 139 ALT is 53. Initial serum glucose is 139. Ammonia level is less than 9. Toxicology screen is positive for opiates, benzo and marijuana. Review of Systems As per HPI. Past Medical History Past Medical History: Coronary Artery Disease (CAD), GERD/Reflux, Hypertension, Myocardial Infarction ([place]) Additional Past Medical History / Comment(s): headaches, borderline anemic, "low iron", "low WBC's", past acid refux, Last Myocardial Infarction Date:: History of Any Multi-Drug Resistant Organisms: None Reported Past Surgical History: Heart Catheterization With Stent, Hernia Repair, Orthopedic Surgery Additional Past Surgical History / Comment(s): beau knee arthroscopy, beau knee surgery as teen, Past Anesthesia/Blood Transfusion Reactions: No Reported Reaction Date of Last Stent Placement:: 11/12/2022 Past Psychological History: Anxiety Smoking Status: Current every day smoker Past Alcohol Use History: None Reported Past Drug Use History: None Reported - Past Family History Father Family Medical History: Cancer Mother Family Medical History: Dementia Medications and Allergies Home Medications Medication Instructions Recorded Confirmed Type Baclofen [Lioresal] 10 mg PO TID@,,11/12/22 06/08/24 History Escitalopram [Lexapro] 20 mg PO DAILY@0800 11/12/22 06/08/24 History Atorvastatin [Lipitor] 40 mg PO DAILY@0800 04/03/23 06/08/24 History HYDROcodone/APAP 5-325MG [[place] 1 tab PO Q12H PRN 05/07/23 06/08/24 History 5-325] Metoprolol Tartrate [Lopressor] 25 mg PO BID@0800,1700 05/20/24 06/08/24 History Acetaminophen Tab [Tylenol] 650 mg PO Q6HR PRN tab 05/31/24 06/08/24 Rx ALPRAZolam [Xanax XR] 0.5 mg PO BID@0800,2100 06/08/24 06/08/24 History Aspirin 81 mg PO DAILY@0800 06/08/24 06/08/24 History Folic Acid 1 mg PO DAILY@0800 06/08/24 06/08/24 History Magnesium Hydroxide [Milk of 7,200 mg PO DAILY PRN 06/08/24 06/08/24 History Magnesia Concentrate] Na Phos,M-B/Na Phos,Di-Ba [Fleet 133 ml RECTAL DAILY PRN 06/08/24 06/08/24 History Adult] Pantoprazole Sodium [Protonix] 40 mg PO DAILY@0600 06/08/24 06/08/24 History Pyridoxine [Vitamin B-6] 50 mg PO DAILY@0800 06/08/24 06/08/24 History bisacodyL [Dulcolax] 10 mg RECTAL DAILY PRN 06/08/24 06/08/24 History levETIRAcetam [Keppra] 500 mg PO BID@0800,2100 06/08/24 06/08/24 History Allergies Allergy/AdvReac Type Severity Reaction Status Date / Time No Known Allergies Allergy Verified 06/08/24 20:22 Physical Examination - Vital Signs Vital Signs: Vital Signs Temp Pulse Resp BP Pulse Ox 06/09/24 12:00 93 18 95/57 97 06/09/24 10:00 92 18 125/80 97 06/09/24 09:00 90 18 111/75 98 06/09/24 08:36 89 20 06/09/24 05:38 114 H 16 134/79 99 06/09/24 02:08 113 H 20 152/105 06/09/24 00:17 111 H 16 151/102 97 06/08/24 20:41 98.4 F 99 20 152/84 97 06/08/24 20:00 153/98 06/08/24 18:52 85 16 188/120 97 06/08/24 18:18 98 F 100 18 172/117 100 GENERAL: The patient is lying in bed and is not in acute distress. NEUROLOGICAL: Higher mental function: The patient is awake but appears slightly drowsy, oriented to self, place and time. Patient is following commands. No aphasia and no neglect. Cranial nerves: The pupils are round, equal and reactive to light and accommodation. Visual veliz are full to confrontation throughout. Slightly exophthamolos bilaterally. Extraocular movement is intact no nystagmus is noted. Facial sensation is normal to touch throughout. The facial strength is normal throughout. Hearing is normal bilaterally to hand rub. Tongue is midline and moved [id number] without any difficulty. No dysarthria is noted. Shoulder shrug is normal bilaterally. Motor: The strength is 5 over 5 throughout. Normal tone and bulk. Cerebellum: Normal finger to nose heel to chin bilaterally. Sensation: Sensation is normal to touch throughout. Reflexes (right/left): 2+ throughout. Plantars are downgoing bilaterally. Results - Laboratory Findings CBC and BMP: 06/09/24 03:17 06/09/24 03:17 Abnormal Lab Findings: Abnormal Labs 06/08/24 06/08/24 06/08/24 18:30 18:30 18:30 RBC 4.13 L Hgb Hct Lymphocytes # 0.6 L PT 12.6 H INR 1.2 H Sodium 134 L Carbon Dioxide 19 L Creatinine 0.53 L Glucose 139 H POC Glucose (mg/dL) Total Bilirubin 2.4 H ALT 53 H Alkaline Phosphatase 239 H Albumin Urine Protein Urine Ketones Urine Blood Urine RBC Hyaline Casts Urine Mucus Urine Opiates Screen U Benzodiazepines Scrn U Marijuana (THC) Screen 06/08/24 06/08/24 06/08/24 20:17 20:17 22:25 RBC Hgb Hct Lymphocytes # PT INR Sodium Carbon Dioxide Creatinine Glucose POC Glucose (mg/dL) 158 H Total Bilirubin ALT Alkaline Phosphatase Albumin Urine Protein Trace H Urine Ketones 2+ H Urine Blood Moderate H Urine RBC 79 H Hyaline Casts 3 H Urine Mucus Few H Urine Opiates Screen Detected H U Benzodiazepines Scrn Detected H U Marijuana (THC) Screen Detected H 06/09/24 06/09/24 03:17 03:17 RBC 3.85 L Hgb 12.7 L Hct 38.2 L Lymphocytes # 0.8 L PT INR Sodium 133 L Carbon Dioxide 20 L Creatinine 0.42 L Glucose 132 H POC Glucose (mg/dL) Total Bilirubin 1.8 H ALT Alkaline Phosphatase 208 H Albumin 3.3 L Urine Protein Urine Ketones Urine Blood Urine RBC Hyaline Casts Urine Mucus Urine Opiates Screen U Benzodiazepines Scrn U Marijuana (THC) Screen Assessment and Plan Assessment: This is a 64-year-old gentleman present emergency department from his nursing facility because of syncopal spell. 88 the patient was nauseous, restless and had a high blood pressure. Patient denies any urinary or bowel incontinence or any tongue bite. He was seen by our neurology team on the first week of May till the second week of May and had 3 EEGs which were negative for any seizure or discharges, 3 CT of the head which were unremarkable for any acute process and CSF study which was negative. Syncopal spell of unknown etiology. New onset seizure versus convulsive syncope of unclear cause. Patient had 3 routine EEG during the first 2 weeks of May 2024 which were negative for any seizure discharges, 3 CT of the head which were negative for any acute process and a CSF study which was unremarkable. Vitamin B-12 deficiency Folate deficiency Non-STEMI History of coronary artery disease History of liver disease Chronic low back pain Hypertension Hyperlipidemia Depression. Plan: Dr. Olvera started the patient on Keppra empirically during his prior admission for 1000 mg twice daily but it seems on his home medication is only 500 twice a day so I will go up to 1000 mg twice a day I ordered routine EEG as well as a CT of the head On seizure precautions seizure pads I highly recommend the patient to obtain a prolonged EEG as an outpatient. Recommend the patient to follow-up with a neurologist as an outpatient within 2 weeks. Per the [place] DMV because of seizure/syncope, avoid driving for 6 months until no further episodes from the last event, avoid heights, avoid swimming unassisted or using heavy missionary. Psychiatry is consulted Cardiology is consulted for chest pain. Will defer rest of the medical management to primary and other specialist Thank you for the consultation. Time with Patient: Greater than 30
--- NOTE | 2024-06-09 17:41 | CT ---
EXAMINATION TYPE: CT brain wo con CT DLP: AMS mGycm, Automated exposure control for dose reduction was used. DATE OF EXAM: 06/09/2024 5:24 PM COMPARISON: 05/29/2024. CLINICAL INDICATION: Male, 64 years old with history of ams, 1209.9 TECHNIQUE: Brain: Axial CT images of the brain were obtained with coronal and sagittal reformats created and rev iewed. Contrast used: None. Oral contrast used: None. FINDINGS: Brain: Extra-axial spaces: No abnormal extra-axial fluid collections. Ventricular system: Within normal limits Cerebral parenchyma: No acute intraparenchymal hemorrhage or mass effect. The feliz-white junction is well differentiated. Cerebellum: Unremarkable. Mass effect: No evidence of midline shift. Intracranial vasculature: unremarkable Soft tissues: Normal. Calvarium/osseous structures: No depressed skull fracture. Paranasal sinuses and mastoid air cells: Mild scattered paranasal sinus disease. Visualized orbits: Orbital contents are intact. IMPRESSION: No acute intracranial process. [facility], , 06/09/2024 5:39 PM
[2024-06-09] MEDS: ONDANSETRON 4 MG/2 ML VIAL IVP PRN (22:58)
[2024-06-09] MEDS: MELATONIN 3 MG TABLET PO SCH (23:33)
--- NOTE | 2024-06-10 08:38 | P.GSCN ---
History of Present Illness Consult date: 06/10/24 Reason for Consult: Right renal calculus Requesting physician: Filipe Godinez History of present illness: The patient is a 64-year-old white male who presented with abdominal and back pain, associated with nausea. He is being evaluated for syncope. CT scan shows a right renal pelvic calculus measuring approximately 12 mm in size, with possible mild right hydronephrosis. A small left upper pole renal calculus was also seen. The patient has known he has a right renal calculus for 4 to 5 years. He states that his urine is dark at times, but he has been essentially asymptomatic. Review of Systems - Constitutional Reports weight loss - Gastrointestinal Reports nausea - Genitourinary Reports as per HPI Past Medical History Past Medical History: Coronary Artery Disease (CAD), GERD/Reflux, Hypertension, Myocardial Infarction ([place]) Additional Past Medical History / Comment(s): headaches, borderline anemic, "low iron", "low WBC's", past acid refux, Last Myocardial Infarction Date:: History of Any Multi-Drug Resistant Organisms: None Reported Past Surgical History: Heart Catheterization With Stent, Hernia Repair, Orthopedic Surgery Additional Past Surgical History / Comment(s): beau knee arthroscopy, beau knee surgery as teen, Past Anesthesia/Blood Transfusion Reactions: No Reported Reaction Date of Last Stent Placement:: 11/12/2022 Past Psychological History: Anxiety Smoking Status: Current every day smoker Past Alcohol Use History: None Reported Past Drug Use History: None Reported - Past Family History Father Family Medical History: Cancer Mother Family Medical History: Dementia Medications and Allergies Home Medications Medication Instructions Recorded Confirmed Type Baclofen [Lioresal] 10 mg PO TID@11/12/22 06/08/24 History Escitalopram [Lexapro] 20 mg PO DAILY@0800 11/12/22 06/08/24 History Atorvastatin [Lipitor] 40 mg PO DAILY@0800 04/03/23 06/08/24 History HYDROcodone/APAP 5-325MG [[place] 1 tab PO Q12H PRN 05/07/23 06/08/24 History 5-325] Metoprolol Tartrate [Lopressor] 25 mg PO BID@0800,1700 05/20/24 06/08/24 History Acetaminophen Tab [Tylenol] 650 mg PO Q6HR PRN tab 05/31/24 06/08/24 Rx ALPRAZolam [Xanax XR] 0.5 mg PO BID@0800,2100 06/08/24 06/08/24 History Aspirin 81 mg PO DAILY@0800 06/08/24 06/08/24 History Folic Acid 1 mg PO DAILY@0800 06/08/24 06/08/24 History Magnesium Hydroxide [Milk of 7,200 mg PO DAILY PRN 06/08/24 06/08/24 History Magnesia Concentrate] Na Phos,M-B/Na Phos,Di-Ba [Fleet 133 ml RECTAL DAILY PRN 06/08/24 06/08/24 History Adult] Pantoprazole Sodium [Protonix] 40 mg PO DAILY@0600 06/08/24 06/08/24 History Pyridoxine [Vitamin B-6] 50 mg PO DAILY@0800 06/08/24 06/08/24 History bisacodyL [Dulcolax] 10 mg RECTAL DAILY PRN 06/08/24 06/08/24 History levETIRAcetam [Keppra] 500 mg PO BID@0800,2100 06/08/24 06/08/24 History Allergies Allergy/AdvReac Type Severity Reaction Status Date / Time No Known Allergies Allergy Verified 06/08/24 20:22 Surgical - Exam Vital Signs Temp Pulse Resp BP Pulse Ox 98 F 100 18 172/117 100 06/08/24 18:18 06/08/24 18:18 06/08/24 18:18 06/08/24 18:18 06/08/24 18:18 - General well developed, well nourished, no distress - Respiratory normal respiratory effort - Abdomen Abdomen: soft, non tender, no guarding, no rigid, no rebound - Genitourinary normal penis with no external lesions, testicles non-tender - Psychiatric oriented to time, oriented to person, oriented to place, speech is normal, memory intact Results - Labs 06/09/24 03:17 06/09/24 03:17 Abnormal Lab Results - Last 24 Hours (Table) 06/08/24 06/08/24 06/08/24 Range/Units 18:30 18:30 18:30 RBC 4.13 L (4.30-5.90) m/uL Hgb (13.0-17.5) gm/dL Hct (39.0-53.0) % Lymphocytes # 0.6 L (1.0-4.8) k/uL PT 12.6 H (10.0-12.5) sec INR 1.2 H (<1.2) Sodium 134 L (137-145) mmol/L Carbon Dioxide 19 L (22-30) mmol/L Creatinine 0.53 L (0.66-1.25) mg/dL Glucose 139 H (74-99) mg/dL POC Glucose (mg/dL) (70-110) mg/dL Total Bilirubin 2.4 H (0.2-1.3) mg/dL ALT 53 H (4-49) U/L Alkaline Phosphatase 239 H (38-126) U/L Albumin (3.5-5.0) g/dL Urine Protein (Negative) Urine Ketones (Negative) Urine Blood (Negative) Urine RBC (0-5) /hpf Hyaline Casts (0-2) /lpf Urine Mucus (None) /hpf Urine Opiates Screen (NotDetected) U Benzodiazepines Scrn (NotDetected) U Marijuana (THC) Screen (NotDetected) 06/08/24 06/08/24 06/08/24 Range/Units 20:17 20:17 22:25 RBC (4.30-5.90) m/uL Hgb (13.0-17.5) gm/dL Hct (39.0-53.0) % Lymphocytes # (1.0-4.8) k/uL PT (10.0-12.5) sec INR (<1.2) Sodium (137-145) mmol/L Carbon Dioxide (22-30) mmol/L Creatinine (0.66-1.25) mg/dL Glucose (74-99) mg/dL POC Glucose (mg/dL) 158 H (70-110) mg/dL Total Bilirubin (0.2-1.3) mg/dL ALT (4-49) U/L Alkaline Phosphatase (38-126) U/L Albumin (3.5-5.0) g/dL Urine Protein Trace H (Negative) Urine Ketones 2+ H (Negative) Urine Blood Moderate H (Negative) Urine RBC 79 H (0-5) /hpf Hyaline Casts 3 H (0-2) /lpf Urine Mucus Few H (None) /hpf Urine Opiates Screen Detected H (NotDetected) U Benzodiazepines Scrn Detected H (NotDetected) U Marijuana (THC) Screen Detected H (NotDetected) 06/09/24 06/09/24 Range/Units 03:17 03:17 RBC 3.85 L (4.30-5.90) m/uL Hgb 12.7 L (13.0-17.5) gm/dL Hct 38.2 L (39.0-53.0) % Lymphocytes # 0.8 L (1.0-4.8) k/uL PT (10.0-12.5) sec INR (<1.2) Sodium 133 L (137-145) mmol/L Carbon Dioxide 20 L (22-30) mmol/L Creatinine 0.42 L (0.66-1.25) mg/dL Glucose 132 H (74-99) mg/dL POC Glucose (mg/dL) (70-110) mg/dL Total Bilirubin 1.8 H (0.2-1.3) mg/dL ALT (4-49) U/L Alkaline Phosphatase 208 H (38-126) U/L Albumin 3.3 L (3.5-5.0) g/dL Urine Protein (Negative) Urine Ketones (Negative) Urine Blood (Negative) Urine RBC (0-5) /hpf Hyaline Casts (0-2) /lpf Urine Mucus (None) /hpf Urine Opiates Screen (NotDetected) U Benzodiazepines Scrn (NotDetected) U Marijuana (THC) Screen (NotDetected) Diabetes panel 06/08/24 06/09/24 Range/Units 18:30 03:17 Sodium 134 L 133 L (137-145) mmol/L Potassium 3.6 3.8 (3.5-5.1) mmol/L Chloride 103 106 (98-107) mmol/L Carbon Dioxide 19 L 20 L (22-30) mmol/L BUN 17 20 (9-20) mg/dL Creatinine 0.53 L 0.42 L (0.66-1.25) mg/dL Glucose 139 H 132 H (74-99) mg/dL Calcium 8.9 8.5 (8.4-10.2) mg/dL AST 41 36 (17-59) U/L ALT 53 H 48 (4-49) U/L Alkaline Phosphatase 239 H 208 H (38-126) U/L Total Protein 7.0 6.8 (6.3-8.2) g/dL Albumin 3.5 3.3 L (3.5-5.0) g/dL Calcium panel 06/08/24 06/09/24 Range/Units 18:30 03:17 Calcium 8.9 8.5 (8.4-10.2) mg/dL Phosphorus 3.5 (2.5-4.5) mg/dL Albumin 3.5 3.3 L (3.5-5.0) g/dL Pituitary panel 06/08/24 06/09/24 Range/Units 18:30 03:17 Sodium 134 L 133 L (137-145) mmol/L Potassium 3.6 3.8 (3.5-5.1) mmol/L Chloride 103 106 (98-107) mmol/L Carbon Dioxide 19 L 20 L (22-30) mmol/L BUN 17 20 (9-20) mg/dL Creatinine 0.53 L 0.42 L (0.66-1.25) mg/dL Glucose 139 H 132 H (74-99) mg/dL Calcium 8.9 8.5 (8.4-10.2) mg/dL Adrenal panel 06/08/24 06/09/24 Range/Units 18:30 03:17 Sodium 134 L 133 L (137-145) mmol/L Potassium 3.6 3.8 (3.5-5.1) mmol/L Chloride 103 106 (98-107) mmol/L Carbon Dioxide 19 L 20 L (22-30) mmol/L BUN 17 20 (9-20) mg/dL Creatinine 0.53 L 0.42 L (0.66-1.25) mg/dL Glucose 139 H 132 H (74-99) mg/dL Calcium 8.9 8.5 (8.4-10.2) mg/dL Total Bilirubin 2.4 H 1.8 H (0.2-1.3) mg/dL AST 41 36 (17-59) U/L ALT 53 H 48 (4-49) U/L Alkaline Phosphatase 239 H 208 H (38-126) U/L Total Protein 7.0 6.8 (6.3-8.2) g/dL Albumin 3.5 3.3 L (3.5-5.0) g/dL - Imaging CT scan - abdomen: report reviewed, image reviewed Assessment and Plan (1) Calculus of kidney Current Visit: Yes Status: Acute Code(s): N20.0 - CALCULUS OF KIDNEY SNOMED Code(s): 34682752 Plan: I had a lengthy discussion with the patient regarding his right renal calculus. He is minimally symptomatic. I do think he should undergo removal of the calculus, but I have suggested this be deferred until the syncope has been evaluated. We discussed methods of kidney stone removal, namely extracorporal shockwave lithotripsy (ESWL), ureteroscopy with laser lithotripsy, and percutaneous nephrolithotomy (PCNL). The pros and cons of each were reviewed. I would favor ureteroscopy with laser lithotripsy, though given the stone burden this may require 2 procedures. There was some scatter of the appearance of the calculus on the CT scan, so a KUB x-ray will be obtained. The patient will follow-up with me as an outpatient. Time with Patient: Greater than 30
[2024-06-10] MEDS: CYANOCOBALAMIN 500 MCG TAB PO SCH (09:42)
--- NOTE | 2024-06-10 10:52 | P.PN ---
Subjective HISTORY OF PRESENT ILLNESS: This is a 64-year-old male with a past medical history significant for coronary artery disease with previous stenting of the RCA, hypertension, and hyperlipidemia. Patient follows in the office with Dr. Robles. We have been asked to see the patient in consultation for chest pain. Patient examined at the bedside in the emergency room. Patient was recently hospitalized earlier this month due to altered mental status and sepsis. Patient also had acute hypoxic respiratory failure and required mechanical ventilation. Patient was discharged to [facility]. He states he is not sure why he was brought back to the emergency room yesterday from his ECF. According to ER documentation, the patient was brought to the hospital for nausea, high blood pressure, and restlessness. The patient is currently alert and oriented at the time of examination. The patient denies having any chest pain or pressure. He denies shortness of breath. Bedside telemetry reveals sinus mechanism with heart rate in the 90s. DIAGNOSTICS: - EKG reveals sinus tachycardia with heart rate of 101. - Chest xray negative for acute process. -CT abdomen pelvis: Negative for acute process. Hepatic cirrhosis with evidence of portal hypertension. Bilateral renal calculi the right renal calculus in the renal pelvis may be partially obstructing inferior renal calyces, colonic diverticulosis and prostatomegaly - Laboratory data: WBC 8.2. Hemoglobin 12.7. Platelet count 187. Sodium 133. Potassium 3.8. BUN 20. Creatinine 0.42. Troponin negative x 3. - Current home cardiac medications include aspirin 81 mg daily, atorvastatin 40 mg daily, metoprolol tartrate 25 mg twice a day - Most recent echocardiogram obtained on May 20, 2024 revealed ejection fraction 60 to 65%, no obvious regional wall motion abnormalities, and no signi ficant valvular abnormalities noted. - Cardiac catheterization history: April 2023 revealing patent stent in the RCA. Unchanged left coronary system. 06/10/2024 Patient examined this morning the bedside. Patient currently denies chest pain or pressure. He denies shortness of breath. Vital signs are stable. Patient was evaluated by urology this morning. Recommendations for patient to follow-up outpatient for ureteroscopy with laser lithotripsy. PHYSICAL EXAM: VITAL SIGNS: Reviewed. GENERAL: Well-developed in no acute distress. HEENT: Head is normocephalic. Pupils are equal, round. Sclerae anicteric. Mucous membranes of the mouth are moist. Neck supple. No JVD or thyromegaly LUNGS: Respirations even and unlabored. Lungs essentially clear to auscultation bilaterally. HEART: Regular rate and rhythm. S1 and S2 heard. ABDOMEN: Soft. Nondistended. Nontender. EXTREMITIES: Normal range of motion. No clubbing or cyanosis. Peripheral pulses intact. No lower extremity edema NEUROLOGIC: Awake and alert. Oriented x 3. ASSESSMENT: Reported nausea, patient currently denies Chest pain, ruled out, patient denies Bilateral renal calculi with possible right obstructing calculi Hepatic cirrhosis with evidence of portal hypertension Recent admission for sepsis Coronary artery disease with previous stenting of the RCA, 10/2022 Hypertension Hyperlipidemia PLAN: An acute coronary event has been ruled out Patient denies having any chest pain or pressure prior to coming to the hospital or this morning during examination Continue current cardiac medications Patient with no active cardiac concerns at this time We will follow on an as-needed basis. Please call with questions or concerns. Nurse practitioner note has been reviewed by physician. Signing provider agrees with the documented findings, assessment, and plan of care documented by PASTE THINNER as a scribe. Objective - Vital Signs Vital signs: Vital Signs Temp 98.0 F 06/10/24 07:00 Pulse 103 H 06/10/24 07:00 Resp 15 06/10/24 07:00 BP 126/77 06/10/24 07:00 Pulse Ox 98 06/10/24 07:00 FiO2 Intake & Output 06/09/24 06/10/24 06/10/24 18:59 06:59 18:59 Intake Total 118 Output Total 600 Balance -600 118 Weight 210 kg Intake: Oral 118 Output: Urine 600 - Labs CBC & Chem 7: 06/09/24 03:17 06/09/24 03:17
--- NOTE | 2024-06-10 15:12 | XR ---
EXAMINATION TYPE: XR KUB DATE OF EXAM: 06/10/2024 Comparison: 11/12/2022 Clinical History: 64-year-old male right-sided renal calculus Findings: L4-S1 posterior and interbody fusion changes. There is a 9 mm right mid abdominal calcification possibly within the right renal collecting system. A couple small calcifications in the pelvis measuring up to 5 mm probably vascular phleboliths. Nonobstructive bowel gas pattern. Mild to moderate stool burden. Air extends distally to the rectum. Impression: 1. 9 mm right mid abdominal calcification, either within the kidney or within the right renal collect ing system. 2. A 5 mm calcification right side of the pelvis probably phlebolith. [facility], , 06/10/2024 3:10 PM
--- NOTE | 2024-06-10 16:15 | MR ---
EXAMINATION TYPE: MR brain wo/w con DATE OF EXAM: 06/10/2024 3:58 PM CLINICAL INDICATION: Male, 64 years old with history of Change in MS; PHH, change in mental status COMPARISON: 06/09/2024 TECHNIQUE: Multi planar, multi sequence imaging was performed through the brain including: T1, T2, In version recovery, susceptibility weighted imaging and gradient echo imaging and Diffusion weighted im aging. The patient was then given intravenous contrast and multi planar, T1 fat-saturation images wer e obtained. IV Contrast: 9.5 cc Gadavist FINDINGS: The feliz-white junctions, ventricular system, basal cisterns appear unremarkable. Diffusion-weighted imaging shows no evidence of restricted diffusion to suggest acute/subacute infarct. Intracranial ar terial flow voids are maintained. Midline structures show no abnormality. Scattered foci of high T2 s ignal intensity are seen within the periventricular white matter. The susceptibility weighted images do not reveal any evidence for micro-hemorrhage. After administration of gadolinium, no abnormal enha ncement is seen. The bone marrow signal is within normal limits. Paranasal sinuses and mastoid air cells: No significant paranasal sinus disease. Visualized orbits: Orbital contents are intact. IMPRESSION: 1. No evidence of intracranial mass, acute/subacute infarct, or abnormal enhancement. 2. Nonspecific white matter changes, likely related to small vessel ischemic disease. [facility], , 06/10/2024 4:13 PM
--- NOTE | 2024-06-10 16:45 | P.PN ---
Subjective Progress Note Date: 06/10/24 I am following-up with patient and he feels he is doing well. Denies of any further syncopal episodes. Feels he is back to baseline. Objective - Vital Signs Vital signs: Vital Signs Temp 98.0 F 06/10/24 07:00 Pulse 103 H 06/10/24 07:00 Resp 15 06/10/24 07:00 BP 126/77 06/10/24 07:00 Pulse Ox 98 06/10/24 07:00 FiO2 Intake & Output 06/09/24 06/10/24 06/10/24 18:59 06:59 18:59 Intake Total 118 Output Total 600 Balance -600 118 Weight 210 kg Intake: Oral 118 Output: Urine 600 Other: # Voids 1 - Exam GENERAL: The patient is lying in bed and is not in acute distress. NEUROLOGICAL: Higher mental function: The patient is awake,alert oriented to self, place and time. Patient is following commands. No aphasia and no neglect. Cranial nerves: The pupils are round, equal and reactive to light and accommodation. Visual veliz are full to confrontation throughout. Slightly exophthamolos bilaterally. Extraocular movement is intact no nystagmus is noted. Facial sensation is normal to touch throughout. The facial strength is normal throughout. Hearing is normal bilaterally to hand rub. Tongue is midline and moved [id number] without any difficulty. No dysarthria is noted. Shoulder shrug is normal bilaterally. Motor: The strength is 5 over 5 throughout. Normal tone and bulk. Cerebellum: Normal finger to nose heel to chin bilaterally. Sensation: Sensation is normal to touch throughout. Reflexes (right/left): 2+ throughout. Plantars are downgoing bilaterally. Some of the workup during this hospital visit consisted of: White blood cell is within normal limits. Sodium is 134, glucose is 139 ALT is 53. Initial serum glucose is 139. Ammonia level is less than 9. TSH: 1.150 Toxicology screen is positive for opiates, benzo and marijuana. CT head: No acute intracranial process. - Labs CBC & Chem 7: 06/09/24 03:17 06/09/24 03:17 Assessment and Plan Assessment: This is a 64-year-old gentleman present emergency department from his nursing facility because of syncopal spell. 88 the patient was nauseous, restless and had a high blood pressure. Patient denies any urinary or bowel incontinence or any tongue bite. He was seen by our neurology team on the first week of May till the second week of May and had 3 EEGs which were negative for any seizure or discharges, 3 CT of the head which were unremarkable for any acute process and CSF study which was negative. Syncopal spell of unknown etiology. New onset seizure versus convulsive syncope of unclear cause. Patient had 3 routine EEG during the first 2 weeks of May 2024 which were negative for any seizure discharges, 3 CT of the head which were negative for any acute process and a CSF study which was unremarkable. Vitamin B-12 deficiency Folate deficiency Non-STEMI History of coronary artery disease History of liver disease Chronic low back pain Hypertension Hyperlipidemia Depression. Plan: Dr. Olvera started the patient on Keppra empirically during his prior admission for 1000 mg twice daily but it seems on his home medication is only 500 twice a day so I will go up to 1000 mg twice a day. Preliminary: EEG No seizure but it appears left temporal slowing. Primary attending ordered MRI Brain. On seizure precautions seizure pads I highly recommend the patient to obtain a prolonged EEG as an outpatient. Recommend the patient to follow-up with a neurologist as an outpatient within 2 weeks. Per the [place] DMV because of seizure/syncope, avoid driving for 6 months until no further episodes from the last event, avoid heights, avoid swimming unassisted or using heavy missionary. Psychiatry is consulted Cardiology is consulted for chest pain. Will defer rest of the medical management to primary and other specialist The plan is discussed with patient and his nurse. If MRI Brain is negative then no further neurological work-up. Time with Patient: Less than 30
--- NOTE | 2024-06-10 20:55 | P.PN ---
Subjective Progress Note Date: 06/10/24 HISTORY OF PRESENT ILLNESS: 64-year-old one of my office patient for many years with active medical history of CAD post PCI and stent placement of the RCA back in October 2022, history of chronic clinical hepatitis with early cirrhosis, history of chronic lower back pain with spinal stenosis, hypertension, hyperlipidemia, hyperglycemia, chronic lower back pain, recurrent pancreatitis, chronic history of neuropathy of the lower extremity, chronic kidney disease stage III, with history of BPH mild anxiety and edema was hospitalized recently for over 10 days for atypical seizure and decreased level of consciousness was on mechanical ventilation for an extended period of time then extubated and improved but continued to have significant change in mentation and memory with slight confusion. Physically had improved some but continue not to act himself like before. Patient was transferred to [facility] for short-term rehab over a week ago has been doing well yesterday was visited by his family when they all decided he is not acting himself and they insisted the nurse have him transferred to the emergency department at [facility] where was seen and evaluated all testing including CAT scan of the brain failed to show any abnormality family kept insisting that he is in pain. Patient is not he is still confused still have worsening mentation compared to his baseline earlier but improved compared to a week ago. Family refused to have him transferred back to [facility] and insisted on patient hospitalized. Patient vitals remained stable his pulse rate is little bit elevated around 100 mg slight agitated at the time but CBC chemistry troponin remain normal drug screen shows benzo and marijuana with. Patient is on pain meds but not quite sure where his marijuana came from. Rest of his lab including UA came with some red blood cell being slightly red at normal. CAT scan of the abdomen failed to show any sign of kidney stone or acute process showing hepatic cirrhosis with portal hypertension and bilateral renal calculi the right renal pelvis may be partially obstructed with a stone there is colonic diverticulosis with enlarged prostate. Still with the hematuria and the current finding he is alternative status can be blamed on marijuana interact with his regular medication also his abdominal pain can be blamed on right-sided stone causing hematuria and symptoms. Will consult urology for the hematuria and the stone and he has to have a talk with the family as I do not believe patient is able to make a decision at this point when another. 06/06/2024: Patient ended up going for an EEG today order for an MRI of the brain to be performed for any major abnormalities since his encephalopathy did not have an MRI that time but ended up having lumbar puncture which came back negative for any infectious process. Mobility still significantly decreased patient continued to have a problem with ability to maintain watching sleep without. Will consult physical therapy to continue work on patient's safety and mobility in the meanwhile allow neurology to finalize her plan. Patient was having tachycardia yesterday his beta-carlos was increased pulse rate down to the 80s today his blood pressure still holding well. Continue to see cardiology no sign of acute coronary syndrome or any anginal complaint like we will continue current medication and still continue to treat the tachycardia. REVIEW OF SYSTEMS: CONSTITUTIONAL: Well-developed slightly confused no acute respiratory distress EYES: No icterus sclerae, no conjunctivitis. EARS, NOSE, MOUTH, THROAT, and FACE: No sore throat, lymphadenopathy, carotid bruits or deformity. ET tube. RESPIRATORY: No SOB cough or wheezes. CARDIOVASCULAR: No chest pain angina or shortness of breath slight tachycardia. GASTROINTESTINAL: Soft positive bowel sounds slight discomfort in the left lower quadrant area and right upper quadrant area as well no rebound or rigidity. GENITOURINARY: Negative for Hematuria or UTI, no kidney stones. INTEGUMENT/BREAST: Negative for any muscular injury with mild osteoarthritis.. HEMATOLOGIC/LYMPHATIC: Negative for bleed or purpura. MUSCULOSKELTAL: Negative for Myalgia or arthralgia. NEURLOGICAL: Alert with mild confusion moving all his 4 extremity. BEHAVIORAL/PSYCH: Negative. ENDOCRINE: Negative. PHYSICAL EXAMINATION: General Appearance: Alert oriented with slight confusion in no distress Neck HEENT: Supple, no lymphadenopathy, no thyroid enlargement, no carotid bruit s. Lungs: Decreased breath sound bilaterally fine rhonchi mild expiratory wheezes. Chest Wall: Decreased expansion with deep inspiration no tenderness and no deformity was found on exam, no costochondral pain or discomfort. Heart: Regular rate and rhythm, S1, S2 normal, no murmur, rub or gallop. Back: Symmetric, no curvature, ROM normal, no CVA tenderness. Abdomen: Soft with slight distention and slight left lower quadrant and mid abdominal region discomfort with no rebound or rigidity. Extremities: Extremities normal, atraumatic, no cyanosis or edema. Pulses: 2+ and symmetric. Skin: Skin color, texture, tugor normal, no rashes or lesions. Neurologic: Alert oriented to person and place not to time moving all his 4 EXTR with generalized weakness no focal deficit. ASSESSMENT AND PLAN: _Altered mental status: No sign of stroke or mini stroke there is a slight int eraction chemical with him probably marijuana and his current medication not clear where patient has his marijuana while he is in [facility] again still need to be question specially family and patient himself who is not able to tell much and still to some degree deny taking marijuana despite showing in his drug screen. CAT scan of the brain did not show any abnormality brain MRI was requested at this point to see if there is any finding consistent with brainstem stroke or any deformity or abnormality can be concerned at this point. _Seizure: Was treated from last time for seizures still on Keppra currently with no sign of seizure. Neurology has requested another EEG today. _Recurrent abdominal pain with finding of kidney stone on the right side with hematuria, will consult urology and ultrasound of the abdomen will be done. No sign of active stone. _Ischemic heart disease with no new onset of angina or heart attack from his last admission has been clear was seen cardiology as well. History of atherosclerotic heart disease: Post angioplasty and stent placement. _Tachycardia: Will titrate metoprolol to tartrate from 25 mg twice a day to 50 mg twice a day. Pulse rate is much better since his metoprolol increased. 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 _Severe GERD: Remain on proton pump inhibitor. _Metabolic encephalopathy: Has not been clear since his admission last time continue to have years with more trouble with slight confusion continue conservative management continue to watch patient daily more carefully. _Chronic lower back pain post surgical intervention: Remain on pain meds and mu scle relaxer at this point. _Gastroparesis: Has been on Protonix and Reglan in the past with good follow-up. _Hypertension: Remain on metoprolol titrate 25 mg twice a day his blood pressure still high will add smaller dose of ARB. _Hyperlipidemia: Remain on Lipitor 40 mg a day. _Chronic depression anxiety attacks has been on escitalopram 20 and alprazolam 0.5 mg twice a day. Discussion: Patient is going for an MRI of the brain, EEG to be done, continue to follow recommendation by neurology also patient will have PT OT and bigger picture with the patient is able to go home with home physical therapy however he need to go back again to rehab is to be determined. Objective - Vital Signs Vital signs: Vital Signs Temp 98.6 F 06/10/24 01:53 Pulse 90 06/10/24 01:53 Resp 17 06/10/24 01:53 BP 132/85 06/10/24 01:53 Pulse Ox 97 06/10/24 01:53 FiO2 Intake & Output 06/09/24 06/09/24 06/10/24 06:59 18:59 06:59 Output Total 600 Balance -600 Weight 210 kg Output: Urine 600 - Labs CBC & Chem 7: 06/09/24 03:17 06/09/24 03:17
[2024-06-10] MEDS: ACETAMINOPHEN TAB 325 MG TAB PO PRN (22:29)
--- NOTE | 2024-06-11 04:10 | EEG ---
ELECTROENCEPHALOGRAM REPORT CLINICAL HISTORY: This is a 64-year-old gentleman with a syncopal spell. The video EEG is obtained to evaluate for seizure epileptiform activity. RELEVANT MEDICATIONS: Keppra. EEG TYPE: This is a routine 21 channel EEG with video using the 10/20 electrode placement system. DESCRIPTION: Wakefulness is obtained. During awake state, the posterior-dominant rhythm consists low to moderate of 7 to 8 hertz activity that is well modulated and well sustained. There is no physiological stage 2 sleep architecture. There is mild left temporal slowing. Interictal and ictal is none. ACTIVATION PROCEDURE: Photic stimulation did not evoke a posterior driving response. There is no abnormality during the photic stimulation. Hyperventilation is not performed. CLINICAL INTERPRETATION: This is an abnormal routine EEG. The background slowing is suggestive of mild encephalopathy. The focal slowing over the left temporal suggestive of cerebral dysfunction in the involved region. Otherwise, there is no epileptiform discharges or seizure on the EEG. Clinical correlation is recommended. DIANA / RO: [id number] /
[2024-06-11 07:36] VITALS: TEMP 98.5
[2024-06-11 09:11] LABS: HCT 39.7 % (39.6-50.0); HGB 13.3 g/dL (13.0-17.0); MCH 32.3 pg (27.0-32.0); MCHC 33.5 g/dL (32.0-37.0); MCV 96.4 FL (80.0-97.0); Mean Platelet Volume 10.6 FL (9.5-12.2); NRBC Per 100 WBC 0 X 10*3/uL (0.00-0.01); Platelet Count 180 X 10*3/uL (140-440); RBC 4.12 X 10*6/uL (4.40-5.60); WBC 11.76 X 10*3/uL (4.50-10.00)
[2024-06-11 09:21] LABS: ALT 43 U/L (10-49); AST 34 U/L (14-35); Albumin 3.3 g/dL (3.8-4.9); Albumin/Globulin Ratio 1.03 Ratio (1.60-3.17); Alkaline Phosphatase 234 U/L (41-126); Blood Urea Nitrogen 22.8 mg/dL (9.0-27.0); Calcium 8.5 mg/dL (8.7-10.3); Carbon Dioxide 22.5 mmol/L (21.6-31.8); Chloride 98 mmol/L (96-109); Globulin 3.2 g/dL (1.6-3.3); Glucose 115 mg/dL (70-110); Potassium 3.8 mmol/L (3.5-5.5); Sodium 133 mmol/L (135-145); Total Bilirubin 1.6 mg/dL (0.3-1.2); Total Protein 6.5 g/dL (6.2-8.2)
--- NOTE | 2024-06-11 13:31 | P.PN ---
Subjective Progress Note Date: 06/11/24 I am following-up with patient and no further syncopal spells or confusions. He feels back to baseline. Objective - Vital Signs Vital signs: Vital Signs Temp 98.5 F 06/11/24 07:00 Pulse 99 06/11/24 07:00 Resp 17 06/11/24 07:00 BP 126/81 06/11/24 07:00 Pulse Ox 97 06/11/24 07:00 FiO2 Intake & Output 06/10/24 06/11/24 06/11/24 18:59 06:59 18:59 Intake Total 476 0 Output Total 375 1000 Balance 101 -1000 0 Intake: Oral 476 0 Output: Urine 375 1000 Other: Voiding Method Toilet # Voids 2 - Exam GENERAL: The patient is lying in bed and is not in acute distress. NEUROLOGICAL: Higher mental function: The patient is awake,alert oriented to self, place and time. Patient is following commands. No aphasia and no neglect. Cranial nerves: The pupils are round, equal and reactive to light and accommodation. Visual veliz are full to confrontation throughout. Slightly exophthamolos bilaterally. Extraocular movement is intact no nystagmus is noted. Facial sensation is normal to touch throughout. The facial strength is normal throughout. Hearing is normal bilaterally to hand rub. Tongue is midline and moved [id number] without any difficulty. No dysarthria is noted. Shoulder shrug is normal bilaterally. Motor: The strength is 5 over 5 throughout. Normal tone and bulk. Cerebellum: Normal finger to nose heel to chin bilaterally. Sensation: Sensation is normal to touch throughout. Reflexes (right/left): 2+ throughout. Plantars are downgoing bilaterally. Some of the workup during this hospital visit consisted of: White blood cell is within normal limits. Sodium is 134, glucose is 139 ALT is 53. Initial serum glucose is 139. Ammonia level is less than 9. TSH: 1.150 Toxicology screen is positive for opiates, benzo and marijuana. CT head: No acute intracranial process. MRI Brain: No evidence of intracranial mass, acute/subacute infarct or abnormal enhancement. Routine EEG: Is abnormal. The background slowing suggestive of mild encephalopathy. The focal slowing over the left temporal suggestive of cerebral dysfunction in the valve region. Otherwise there is no epileptiform discharges or seizure on the EEG. - Labs CBC & Chem 7: 06/11/24 04:58 06/11/24 04:58 Labs: Abnormal Lab Results - Last 24 Hours (Table) 06/11/24 06/11/24 Range/Units 04:58 04:58 WBC 11.76 H (4.50-10.00) X 10*3/uL RBC 4.12 L (4.40-5.60) X 10*6/uL MCH 32.3 H (27.0-32.0) pg Sodium 133 L (135-145) mmol/L Anion Gap 12.50 H (4.00-12.00) mmol/L BUN/Creatinine Ratio 38.00 H (12.00-20.00) Ratio Glucose 115 H (70-110) mg/dL Calcium 8.5 L (8.7-10.3) mg/dL Total Bilirubin 1.6 H (0.3-1.2) mg/dL Alkaline Phosphatase 234 H (41-126) U/L Albumin 3.3 L (3.8-4.9) g/dL Albumin/Globulin Ratio 1.03 L (1.60-3.17) Ratio Assessment and Plan Assessment: This is a 64-year-old gentleman present emergency department from his nursing facility because of syncopal spell. 88 the patient was nauseous, restless and had a high blood pressure. Patient denies any urinary or bowel incontinence or any tongue bite. He was seen by our neurology team on the first week of May till the second week of May and had 3 EEGs which were negative for any seizure or discharges, 3 CT of the head which were unremarkable for any acute process and CSF study which was negative. Syncopal spell of unknown etiology but cannot rule out seizure. MRI Brain is negative for acute process or mass. EEG showed mild encephalopathy as well left temporal slowing but no seizure or discharges. New onset seizure versus convulsive syncope of unclear cause. Patient had 3 routine EEG during the first 2 weeks of May 2024 which were negative for any seizure discharges, 3 CT of the head which were negative for any acute process and a CSF study which was unremarkable. Vitamin B-12 deficiency Folate deficiency Non-STEMI History of coronary artery disease History of liver disease Chronic low back pain Hypertension Hyperlipidemia Depression. Plan: Dr. Olvera started the patient on Keppra empirically during his prior admission f or 1000 mg twice daily but it seems on his home medication is only 500 twice a day so I will go up to 1000 mg twice a day. On seizure precautions seizure pads I highly recommend the patient to obtain a prolonged EEG as an outpatient. Recommend the patient to follow-up with a neurologist as an outpatient within 2 weeks. Per the [place] DMV because of seizure/syncope, avoid driving for 6 months un til no further episodes from the last event, avoid heights, avoid swimming unassisted or using heavy missionary. Psychiatry is consulted Cardiology is consulted for chest pain. Will defer rest of the medical management to primary and other specialist The plan is discussed with patient and his nurse. There is no further neurological work-up. Will sign off. Please reconsult if needed. Time with Patient: Less than 30
[2024-06-11 14:16] VITALS: BP 119/59; PULSE 78; RESP 18
== END 2024-06-11 15:50 | disposition home health service (06) | DRG 100 ==
LOC: EC 18:08 → 6NMEDSUR 22:00 → OBSVTOIN 06-10 09:35
PROVIDERS: ADMIT Internal Medicine Geriatric Medicine; ATTEND Internal Medicine Geriatric Medicine
PROC: 4A10X4Z Monitoring of Central Nervous Electrical Activity, External Approach (ICD-10-PCS; principal; 2024-06-10)
DX: R56.9 Unspecified convulsions (principal); G92.8 Other toxic encephalopathy; J96.01 Acute respiratory failure with hypoxia; I42.9 Cardiomyopathy, unspecified; K86.1 Other chronic pancreatitis; K76.6 Portal hypertension; F05 Delirium due to known physiological condition; N20.0 Calculus of kidney; N18.30 Chronic kidney disease, stage 3 unspecified; N40.0 Benign prostatic hyperplasia without lower urinary tract symptoms; K31.84 Gastroparesis; K21.9 Gastro-esophageal reflux disease without esophagitis; K74.60 Unspecified cirrhosis of liver; I25.2 Old myocardial infarction; G89.29 Other chronic pain; F41.1 Generalized anxiety disorder; I25.10 Atherosclerotic heart disease of native coronary artery without angina pectoris; E78.5 Hyperlipidemia, unspecified; E53.8 Deficiency of other specified B group vitamins; F32.A Depression, unspecified; I12.9 Hypertensive chronic kidney disease with stage 1 through stage 4 chronic kidney disease, or unspecified chronic kidney disease; Z79.82 Long term (current) use of aspirin; Z79.899 Other long term (current) drug therapy; Z95.5 Presence of coronary angioplasty implant and graft; R00.0 Tachycardia, unspecified; K57.30 Diverticulosis of large intestine without perforation or abscess without bleeding; R55 Syncope and collapse; K75.81 Nonalcoholic steatohepatitis (NASH); Z87.19 Personal history of other diseases of the digestive system
CPT/HCPCS: 36415; 70450; 70553; 71046; 74018; 74176; 80053; 80306; 81001; 82140; 83735; 84100; 84443; 84484; 85025; 85027; 85610; 85730; 87636; 93005; 95816; 96361; 96374; 96375; 99285

== ENCOUNTER → 2024-07-22 | Day surgery (SDC) | payer MEDICARE ==
--- NOTE | 2024-07-21 21:11 | P.GSHP ---
History of Present Illness H&P Date: 07/21/24 Chief Complaint: Right hydronephrosis, recurrent UTI The patient is a 64-year-old white male who presented with abdominal and back pain, associated with nausea. He was evaluated for syncope. CT scan showed a right renal pelvic calculus measuring approximately 12 mm in size, with possible mild right hydronephrosis. A small left upper pole renal calculus was also seen. The patient has known he has a right renal calculus for 4 to 5 years. He states that his urine is dark at times, but he has been essentially asymptomatic. Since the time of the CT scan, he has been hospitalized on 2 occasions with E. coli UTI and sepsis. He has thus been advised to undergo treatment for the UPJ calculus. The pros and cons of extracorporal shockwave lithotripsy (ESWL) and ureteroscopic removal of the calculus were reviewed in detail with the patient, his , and his daughter. He has elected to undergo ureteroscopic removal of the calculus. - Constitutional Constitutional: Denies chills, Denies fever - Cardiovascular Cardiovascular: Reports high blood pressure - Genitourinary (Male) Genitourinary: Reports kidney stones, Denies dysuria, Denies flank pain, Denies hematuria Past Medical History Past Medical History: Coronary Artery Disease (CAD), GERD/Reflux, Hyperlipidemia, Hypertension, Liver Disease, Memory Impairment, Myocardial Infarction ([place]), Renal Disease, Seizure Disorder Additional Past Medical History / Comment(s): headaches, borderline anemic, "low iron", "low WBC's" being seen for this, admittd [facility] 05/20/24 with seizure intubated.admitted to [facility] end of May for AMS then taken by family & admitted after to [facility] [place] uti sepsis .last and only seizure 05/19/24. some memory issues that are improving per daughter. 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 2 utis 1st 06/14/24 with sepsis , 2nd uti 07/03/24. dx with Paroneoplastic disorder. had 2 ECF stays for rehab . pt hx from Dr Godinez indicated kidney disease. Last Myocardial Infarction Date:: 11/12/2022 History of Any Multi-Drug Resistant Organisms: None Reported Past Surgical History: Back Surgery, Heart Catheterization With Stent, Hernia Repair, Orthopedic Surgery Additional Past Surgical History / Comment(s): beau knee arthroscopy, beau knee surgery as teen, L4-5 s1 fused, colonoscopy Past Anesthesia/Blood Transfusion Reactions: No Reported Reaction Date of Last Stent Placement:: 11/12/2022 Smoking Status: Former smoker - Past Family History Father Family Medical History: Cancer Mother Family Medical History: Dementia Medications and Allergies Home Medications Medication Instructions Recorded Confirmed Type Baclofen [Lioresal] 10 mg PO TID 11/12/22 07/20/24 History Escitalopram [Lexapro] 20 mg PO DAILY 11/12/22 07/20/24 History Atorvastatin [Lipitor] 40 mg PO DAILY@0800 04/03/23 07/20/24 History HYDROcodone/APAP 5-325MG [[place] 1 tab PO Q12H PRN 05/07/23 07/20/24 History 5-325] ALPRAZolam [Xanax XR] 0.5 mg PO BID PRN 06/08/24 07/20/24 History Aspirin 81 mg PO DAILY@0800 06/08/24 07/20/24 History Folic Acid 1 mg PO DAILY@0800 06/08/24 07/20/24 History Magnesium Hydroxide [Milk of 7,200 mg PO DAILY PRN 06/08/24 07/20/24 History Magnesia Concentrate] Pyridoxine [Vitamin B-6] 50 mg PO DAILY@0800 06/08/24 07/20/24 History Cyanocobalamin [Vitamin B-12] 1,000 mcg PO DAILY 30 Days #60 tab 06/11/24 07/20/24 Rx Pantoprazole Sodium [Protonix] 40 mg PO DAILY@0600 30 Days #30 tab 06/12/24 07/20/24 Rx Metoprolol Tartrate [Lopressor] 25 mg PO BID 07/20/24 07/20/24 History Thiamine [Vitamin B-1] 100 mg PO DAILY 07/20/24 07/20/24 History levETIRAcetam [Keppra] 500 mg PO BID 07/20/24 07/20/24 History Allergies Allergy/AdvReac Type Severity Reaction Status Date / Time No Known Allergies Allergy Verified 07/20/24 10:53 Surgical - Exam - General well developed, well nourished, no distress - Respiratory normal respiratory effort - Abdomen Abdomen: soft, non tender, no guarding, no rigid, no rebound - Genitourinary normal penis with no external lesions, testicles non-tender - Psychiatric oriented to time, oriented to person, oriented to place, speech is normal, memory intact Results - Imaging CT scan - abdomen: report reviewed, image reviewed Assessment and Plan (1) Calculus of ureter Status: Acute Code(s): N20.1 - CALCULUS OF URETER SNOMED Code(s): 20089051 Plan: Cystoscopy, right ureteroscopy with holmium laser lithotripsy and possible stone basketing, right ureteral stent insertion. The procedure has been reviewed in detail with the patient and his family. They have been made aware of potential risks, which include anesthesia, bleeding, infection, ureteral injury, and inability to remove the calculus. They have also been made aware of the possible need for a secondary procedure. Although recent urinalysis showed no evidence of infection, the patient has been placed on Keflex empirically prior to surgery.
[~2024-07-22] MED LIST changes: -DEXAMETHASONE SOD PHOSPHATE 4 MG/ML 1 ML VIAL IV ONE; +GLYCOPYRROLATE 0.2 MG/ML 2 ML VIAL ONE; +HYDROmorphone (PF) 1 MG/ML ONE; +LIDOCAINE 1% INJ 10MG/ML (20 ML MDV) ONE; +MIDAZOLAM 2 MG/2 ML VIAL ONE; +NEOSTIGMINE 1 MG/ML 10 ML VIAL ONE; -ONDANSETRON 4 MG/2 ML VIAL IVP ONE; +PHENYLEPHRINE-0.9% NACL SYG 1,000 MCG/10 ML SYRINGE ONE; +PROPOFOL 10 MG/ML 20 ML VIAL IV ONE; +ROCURONIUM 10 MG/ML (5 ML VIAL) IV ONE; +SUCCINYLCHOLINE CHLORIDE 200 MG/10 ML VIAL IV ONE; -ceFAZolin 1,000 MG in SODIUM CHLORIDE 0.9% IRRIGATIO 1,000 ML IRRIGATION PRN; +fentaNYL (PF) 50 MCG/ML 2 ML AMP ONE
--- NOTE | 2024-07-22 11:49 | XR ---
EXAMINATION TYPE: XR KUB DATE OF EXAM: 07/22/2024 11:18 AM COMPARISON: 06/08/2024 CLINICAL INDICATION: Male, 64 years old with history of kidney stones; [facility] TECHNIQUE: One radiographic view of the abdomen was obtained. FINDINGS: The bowel gas pattern is nonspecific without dilated loops of small or large bowel. . Fecal material and gas are demonstrated throughout the colon and rectum. There is no evidence for organome pan or pneumoperitoneum. The osseous structures are intact. Bilateral renal calculi measuring up t o 9 mm on the right and 4 mm on the left. Multiple calcifications projecting over the pelvis some of which is thought to be inspissated stool and/or retained contrast within diverticula. Sedation or ove r the lower spine appears intact. IMPRESSION: Bilateral renal calculi with suspected inspissated stool and/or ureteral calculi project over the pel vis. [facility], , 07/22/2024 11:46 AM
[2024-07-22] MEDS: LACTATED RINGERS 1,000 ML IV SCH (12:05)
[2024-07-22] MEDS: IV FLUID CONTINUATION 1,000 ML IV ONE ×2 (12:05→17:57)
[2024-07-22] MEDS: DEXAMETHASONE SOD PHOSPHATE 4 MG/ML 1 ML VIAL IVP STA (12:16)
[2024-07-22] MEDS: ONDANSETRON 4 MG/2 ML VIAL IVP STA (12:16)
--- NOTE | 2024-07-22 15:13 | P.OP ---
Date of Procedure: 07/22/24 Preoperative Diagnosis: Right UPJ calculus Postoperative Diagnosis: Right renal calculus Procedure(s) Performed: Cystoscopy, right ureteroscopy with Holmium laser lithotripsy and stone basketing, right ureteral stent insertion Anesthesia: HADLEYA Surgeon: Maynor Butt Estimated Blood Loss (ml): 10 IV fluids (ml): 350 Pathology: other (Right renal calculus fragments, sent for chemical analysis) Condition: stable Disposition: PACU Indications for Procedure: The patient is a 64-year-old white male who presented with abdominal and back pain, associated with nausea. He was evaluated for syncope. CT scan showed a right renal pelvic calculus measuring approximately 12 mm in size, with possible mild right hydronephrosis. A small left upper pole renal calculus was also seen. The patient has known he has a right renal calculus for 4 to 5 years. He states that his urine is dark at times, but he has been essentially asymptomatic. Since the time of the CT scan, he has been hospitalized on 2 occasions with E. coli UTI and sepsis. He has thus been advised to undergo treatment for the UPJ calculus. The pros and cons of extracorporal shockwave lithotripsy (ESWL) and ureteroscopic removal of the calculus were reviewed in detail with the patient, his , and his daughter. He has elected to undergo ureteroscopic removal of the calculus. Operative Findings: 9 mm right lower pole renal calculus, fragmented and removed completely. Description of Procedure: The patient was taken to the operating room and placed in the dorsolithotomy position, with legs supported in Hakan stirrups. The external genitalia was prepped and draped sterilely. The 30 lens was used to introduce the 21-Burkinan Mcintosh cystoscopic sheath through the urethra and into the bladder under direct vision. The prostatic urethra showed evidence of mild lateral lobe enlargement. The bladder was examined in its entirety. Both ureteral orifices were normal anatomic location and configuration, and clear urine effluxed from both. No tumors or foreign bodies were seen. A 0.038 inch Glidewire was passed through the cystoscope. The right ureteral orifice was cannulated, and the Glidewire was advanced up to the right renal pelvis. The calculus was seen on fluoroscopy, and it was evident at this time that the calculus was lateral to the Glidewire and thus not within the ureter or the UPJ. The cystoscope was removed, and an 11/13-Burkinan ureteral access catheter was passed over the wire, up to the proximal ureter. The Five Below flexible ureteroscope was then passed through the ureteral access catheter sheath and advanced under direct vision up to the right renal pelvis. Each calyx was examined. A 9 mm calculus was identified within a lower pole calyx. A 1.9 Burkinan nitinol basket was used to grasp the calculus and reposition it within the renal pelvis. The 272 micron Holmium laser probe was passed through the ureteroscope, and lithotripsy was performed utilizing a dusting mode. Several pieces broke away and were removed using the 1.9 Burkinan nitinol basket. Any residual fragments were lasered until there were no fragments exceeding 1 mm in size, and none seen on fluoroscopy. Pullout ureteroscopy showed no evidence of ureteral trauma. The Glidewire was passed through the ureteroscope, which was removed. The Glidewire was then backloaded into the cystoscope, which was passed into the bladder. A 26 cm, 4.8 Burkinan double-J ureteral stent was placed over the wire. Proper stent positioning was verified fluoroscopically and endoscopically. The bladder was emptied and the cystoscope removed. A string was left attached to the stent, and was taped to the patient's penis using a Tegaderm dressing. The patient tolerated the procedure well and was taken to the recovery room in stable cond ition. ODESSA SILVA Report: Procedure Acuity: Elective Stone Size and Location: 9 mm, right lower pole Ureteral Dilation: No Ureteral Access Sheath Used: Yes Stone Sent for Analysis: Yes All Stones/Fragments Were Removed with a Basket: Yes Complications: No Preoperative Antibiotics Given: Yes Stent Placed: Yes If Stent Placed, Was String Left Attached: Yes If Stent Placed, When is it to be Removed: 1 week Discharge Medications: Toradol, tamsulosin
[2024-07-22 15:19] VITALS: TEMP 97
--- NOTE | 2024-07-22 15:53 | FL ---
EXAMINATION TYPE: FL guidance operating room DATE OF EXAM: 07/22/2024 3:11 PM COMPARISON: Pre Operative Images if available both CT/MRI or plain film CLINICAL INDICATION: Male, 64 years old with history of RT UPJ CALCULUS; TECHNIQUE: FL guidance operating room, multiple fluoroscopic images provided for procedure. Total fluoroscopy time: 30 seconds Total submitted images to PACS: 3 DAP: [id number] mGym2 Gycm2 uGym2 cGycm2 or equivalent. FINDINGS: Multiple intraoperative fluoroscopic images were taken resulting in ureteral stent placement with sup erior pigtail in appropriate position projecting over the renal pelvis. No immediate intraoperative c omplication. Multilevel degeneration changes throughout the spine. IMPRESSION: 1. No evidence for intraoperative complication. 2. Please see the operative/procedural note for further details. [facility], , 07/22/2024 3:51 PM
[2024-07-22] MEDS: hydrALAZINE HCL 20 MG/ML 1 ML VIAL IVP STA (17:17)
[2024-07-22 17:57] VITALS: BP 159/88; PULSE 67; RESP 14
== END | disposition home or self-care (01) ==
LOC: OR 11:07
PROVIDERS: ATTEND Urology
DX: N20.0 Calculus of kidney (principal); E78.5 Hyperlipidemia, unspecified; K21.9 Gastro-esophageal reflux disease without esophagitis; I10 Essential (primary) hypertension; I25.2 Old myocardial infarction; I25.10 Atherosclerotic heart disease of native coronary artery without angina pectoris; G40.909 Epilepsy, unspecified, not intractable, without status epilepticus; K74.60 Unspecified cirrhosis of liver; Z87.440 Personal history of urinary (tract) infections; Z79.899 Other long term (current) drug therapy; Z79.82 Long term (current) use of aspirin; Z98.890 Other specified postprocedural states
CPT/HCPCS: 52356; 82365; 74018; C2625; C1769; J2250; J0330; J0360; J1100; J2710; J2405; J2003; J3010; J1171; J2704; J2371; J1596

== ENCOUNTER → 2024-07-27 | Outpatient (CLI) | payer MEDICARE ==
[2024-07-27 19:26] LABS: HCT 39.4 % (39.6-50.0); HGB 12.4 g/dL (13.0-17.0); MCH 31.9 pg (27.0-32.0); MCHC 31.5 g/dL (32.0-37.0); MCV 101.3 FL (80.0-97.0); Mean Platelet Volume 11.6 FL (9.5-12.2); NRBC Per 100 WBC 0 X 10*3/uL (0.00-0.01); Platelet Count 99 X 10*3/uL (140-440); RBC 3.89 X 10*6/uL (4.40-5.60); WBC 5.38 X 10*3/uL (4.50-10.00)
[2024-07-27 21:12] LABS: % Iron Saturation 31.86 (15.00-50.00); ALT 68 U/L (10-49); AST 69 U/L (14-35); Albumin 3.8 g/dL (3.8-4.9); Albumin/Globulin Ratio 1.27 Ratio (1.60-3.17); Alkaline Phosphatase 238 U/L (41-126); BUN/Creat Ratio 24.67 Ratio (12.00-20.00); Blood Urea Nitrogen 14.8 mg/dL (9.0-27.0); Carbon Dioxide 24.4 mmol/L (21.6-31.8); Chloride 105 mmol/L (96-109); Glucose 101 mg/dL (70-110); Iron 94 UG/DL (65-175); Potassium 4.7 mmol/L (3.5-5.5); Sodium 139 mmol/L (135-145); Total Bilirubin 0.7 mg/dL (0.3-1.2); Total Iron Binding Capacity 295 UG/DL (228-460); Total Protein 6.8 g/dL (6.2-8.2)
[2024-07-27 21:21] LABS: Hepatitis B Surface Antigen Nonreactive (Nonreactive); Hepatitis C IgG Antibody Nonreactive (Nonreactive)
[2024-07-27 21:36] LABS: Ceruloplasmin 15.5 mg/dL (20.0-60.0)
== END | disposition home or self-care (01) ==
LOC: LABWHC1 12:38
PROVIDERS: ATTEND Internal Medicine Gastroenterology
DX: K74.60 Unspecified cirrhosis of liver (principal)
CPT/HCPCS: 36415; 80053; 82103; 82390; 82728; 83516; 83540; 83550; 84165; 85027; 86038; 86039; 86803; 87340

== ENCOUNTER → 2024-08-13 | Outpatient (CLI) | payer MEDICARE ==
[2024-08-13 15:25] LABS: HCT 39.3 % (39.6-50.0); HGB 13.1 g/dL (13.0-17.0); MCH 32.3 pg (27.0-32.0); MCHC 33.3 g/dL (32.0-37.0); MCV 96.8 FL (80.0-97.0); Mean Platelet Volume 12.1 FL (9.5-12.2); NRBC Per 100 WBC 0 X 10*3/uL (0.00-0.01); Platelet Count 86 X 10*3/uL (140-440); RBC 4.06 X 10*6/uL (4.40-5.60); RDW 13.8 % (11.5-14.5)
[2024-08-13 15:59] LABS: % Iron Saturation 24.23 (15.00-50.00); ALT 46 U/L (10-49); AST 59 U/L (14-35); Albumin 3.8 g/dL (3.8-4.9); Albumin/Globulin Ratio 1.23 Ratio (1.60-3.17); Alkaline Phosphatase 204 U/L (41-126); BUN/Creat Ratio 36.17 Ratio (12.00-20.00); Blood Urea Nitrogen 21.7 mg/dL (9.0-27.0); Calcium 8.9 mg/dL (8.7-10.3); Carbon Dioxide 22.8 mmol/L (21.6-31.8); Chloride 108 mmol/L (96-109); Globulin 3.1 g/dL (1.6-3.3); Glucose 104 mg/dL (70-110); Iron 71 UG/DL (65-175); Potassium 3.6 mmol/L (3.5-5.5); Sodium 142 mmol/L (135-145); Total Bilirubin 0.5 mg/dL (0.3-1.2); Total Iron Binding Capacity 293 UG/DL (228-460); Total Protein 6.9 g/dL (6.2-8.2)
== END | disposition home or self-care (01) ==
LOC: LABWHC1 08:49
PROVIDERS: ATTEND Internal Medicine Gastroenterology
DX: K74.60 Unspecified cirrhosis of liver (principal); R77.8 Other specified abnormalities of plasma proteins
CPT/HCPCS: 36415; 80053; 81256; 82728; 83540; 83550; 85027

== ENCOUNTER → 2024-09-02 | Outpatient (CLI) | payer MEDICARE ==
--- NOTE | 2024-09-03 08:07 | MR ---
EXAMINATION TYPE: MR liver wo/w con DATE OF EXAM: 09/02/2024 6:11 PM COMPARISON: 02/07/2023 06/08/2024 CLINICAL INDICATION: Male, 64 years old with history of K74.60 UNSPECIFIED CIRRHOSIS OF LIVER; PHH, C irrhosis of the Liver TECHNIQUE: Multiplanar multi-sequence imaging was performed without contrast. Post contrast imaging was performed. Post IV contrast subtraction images were also submitted for review. IV Contrast: 8.5ml mL Gadobutrol FINDINGS: LOWER CHEST: No gross irregularity. ABDOMEN Liver: No evidence for hepatic steatosis or cirrhosis. Gallbladder and Bile ducts: No evidence for ductal dilation, or biliary stricture or evidence of chol edocholithiasis. The gallbladder is within normal limits. Pancreas: Enlarged measuring up to 18 cm No ductal dilation. No evidence for solid mass. Spleen: Normal for size. Adrenal glands: Unremarkable. Kidneys: No evidence for obstructive uropathy. No suspicious renal masses. Few scattered intrinsic hi gh T1 signal cyst and high T2 signal low T1 signal cysts no suspicious postcontrast enhancement to hopkins ggest mass. Stomach and Bowel: No evidence for bowel wall thickening or evidence for obstruction. Scattered colon ic diverticula. Retroperitoneum/Peritoneum: No evidence of pneumoperitoneum or free fluid. Vasculature: No aortic aneurysm. Musculoskeletal: The osseous structures appear intact. Susceptibility from fixation entering the spin e. Lymph Nodes: No gross evidence for lymphadenopathy. Abdominal wall: Unremarkable. IMPRESSION: 1. Hepatic cirrhosis with evidence of portal hypertension with splenomegaly. Suspicious observations . 2. Bilateral Bosniak type I and type II equivalent renal cysts. 3. Colonic diverticulosis. [facility], , 09/03/2024 8:05 AM
== END | disposition home or self-care (01) ==
LOC: RADMRIMAIN 17:01
PROVIDERS: ATTEND Internal Medicine Gastroenterology
DX: K74.60 Unspecified cirrhosis of liver (principal); K57.30 Diverticulosis of large intestine without perforation or abscess without bleeding; K76.6 Portal hypertension; N28.1 Cyst of kidney, acquired; R16.1 Splenomegaly, not elsewhere classified
CPT/HCPCS: 74183; A9585

== ENCOUNTER → 2024-09-03 | Outpatient (CLI) | payer MEDICARE ==
--- NOTE | 2024-09-03 15:28 | US ---
EXAMINATION TYPE: US kidneys/renal and bladder DATE OF EXAM: 09/03/2024 COMPARISON: NONE CLINICAL INDICATION: Male, 64 years old with history of N20.1 CALCULUS OF URETER; TECHNIQUE: Grayscale imaging of the bilateral kidneys and urinary bladder: FINDINGS: EXAM MEASUREMENTS: Right Kidney: 12.7 x 6.6 x 5.8 cm Left Kidney: 12.4 x 5.5 x 6.8 cm Post Void Residual Volume: NA mL Right Kidney: wnl, no evidence for hydronephrosis, mass or renal calculus. Left Kidney: wnl, no evidence for hydronephrosis, mass or renal calculus. Bladder: WNL Bilateral Jets seen: Yes Normal Post Void Residual: NA There is no evidence for hydronephrosis at this point in time. No nephrolithiasis is seen. No madai s are identified. The urinary bladder is anechoic. IMPRESSION: No evidence for obstructive uropathy or renal calculus. [facility], , 09/03/2024 3:26 PM
--- NOTE | 2024-09-03 16:56 | XR ---
EXAMINATION TYPE: XR KUB DATE OF EXAM: 09/03/2024 4:07 PM COMPARISON: 07/22/2024 CLINICAL INDICATION: Male, 64 years old with history of N20.1 CALCULUS OF URETER R31.1 BENIGN ESSENTI AL SD; [facility] TECHNIQUE: One radiographic view of the abdomen was obtained. FINDINGS: The bowel gas pattern is nonspecific without dilated loops of small or large bowel. . Fecal material and gas are demonstrated throughout the colon and rectum. There is no evidence for organome pan or pneumoperitoneum. No acute osseous process. Limited evaluation due to over lipping stool. C alcification seen on prior are not well appreciated there may be a left inferior pole renal calculus present adjacent 5 mm. Fixation in the lumbar spine appears intact. IMPRESSION: Limited evaluation due to over lipping stool. Calcification seen on prior are not well appreciated th ere may be a left inferior pole renal calculus present adjacent 5 mm. [facility], , 09/03/2024 4:53 PM
== END | disposition home or self-care (01) ==
LOC: RADUSWWP 14:50
PROVIDERS: ATTEND Urology
DX: N20.1 Calculus of ureter (principal); R31.1 Benign essential microscopic hematuria
CPT/HCPCS: 74018; 76770

== ENCOUNTER 2024-10-15 10:54 | Day surgery (SDC) | payer MEDICARE ==
[2024-10-13 14:28] VITALS: BMI 25.0
[~2024-10-15 10:54] MED LIST changes: -GLYCOPYRROLATE 0.2 MG/ML 2 ML VIAL ONE; -HYDROmorphone (PF) 1 MG/ML ONE; +LACTATED RINGERS 1,000 ML IV SCH; -LIDOCAINE 1% INJ 10MG/ML (20 ML MDV) ONE; -MIDAZOLAM 2 MG/2 ML VIAL ONE; -NEOSTIGMINE 1 MG/ML 10 ML VIAL ONE; -PHENYLEPHRINE-0.9% NACL SYG 1,000 MCG/10 ML SYRINGE ONE; -PROPOFOL 10 MG/ML 20 ML VIAL IV ONE; -ROCURONIUM 10 MG/ML (5 ML VIAL) IV ONE; -SUCCINYLCHOLINE CHLORIDE 200 MG/10 ML VIAL IV ONE; -fentaNYL (PF) 50 MCG/ML 2 ML AMP ONE
[2024-10-15 11:15] VITALS: TEMP 98.6
[2024-10-15] MEDS: LACTATED RINGERS 1,000 ML IV ONE ×2 (11:20→11:42)
[2024-10-15] MEDS ORDERED: PROPOFOL 10 MG/ML 20 ML VIAL IV ONE (11:46)
[2024-10-15] MEDS ORDERED: LIDOCAINE 1% INJ 10MG/ML (20 ML MDV) ONE (11:46)
--- NOTE | 2024-10-15 11:56 | P.PCN ---
Date of Procedure: 10/15/24 Procedure(s) Performed: BRIEF HISTORY: Patient is a 64-year-old, pleasant, white male is scheduled for an upper endoscopy as a part of screening for esophageal varices. 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 PROCEDURE PERFORMED: Esophagogastroduodenoscopy with biopsy. PREOPERATIVE DIAGNOSIS: History of liver cirrhosis, screening for esophageal varices. IV sedation per anesthesia. PROCEDURE: After informed consent was obtained, the patient was brought into the endoscopy unit. IV sedation was administered by Anesthesia under continuous monitoring. Initially the Olympus GIF-140 video endoscope was inserted into the mouth. Esophagus intubated without any difficulty. It was gradually advanced into the stomach and duodenum and carefully examined. The bulb and the second part of the duodenum appeared normal. The scope at this time was withdrawn to the stomach, adequately insufflated with air, and upon careful examination, mucosa of the antrum, is diffuse gastritis and biopsies were done from this area. In the proximal body of the stomach there was a 5 to 6 mm polyp that was biopsied. Rest of the body, cardia and the fundus appeared normal. Gastric varices identified. The scope was then withdrawn into the esophagus. The GE junction was located at 39 cm from the incisors. The esophagus appeared normal. There were no erosions or ulcerations seen no evidence of esophageal varices and the patient tolerated the procedure well. IMPRESSION: 1. Mild diffuse antral gastritis. 2. Small gastric polyp in the proximal body of the stomach 3. No evidence of gastric or esophageal varices. RECOMMENDATIONS: The findings of this examination were discussed with the patient as well as his family. He was advised to have repeat upper endoscopy in 2 to 3 years to screen for esophageal varices.
[2024-10-15 12:25] VITALS: BP 132/73; PULSE 71; RESP 18
== END 2024-10-15 12:54 | disposition home or self-care (01) ==
LOC: ORWHC2ENDO 10:54
PROVIDERS: ATTEND Internal Medicine Gastroenterology
DX: K29.50 Unspecified chronic gastritis without bleeding (principal); K31.7 Polyp of stomach and duodenum; K74.69 Other cirrhosis of liver; I25.10 Atherosclerotic heart disease of native coronary artery without angina pectoris; I25.2 Old myocardial infarction; N28.9 Disorder of kidney and ureter, unspecified; I10 Essential (primary) hypertension; E78.5 Hyperlipidemia, unspecified; F03.90 Unspecified dementia, unspecified severity, without behavioral disturbance, psychotic disturbance, mood disturbance, and anxiety; G40.89 Other seizures; Z90.89 Acquired absence of other organs; Z89.521 Acquired absence of right knee; Z89.522 Acquired absence of left knee; Z79.02 Long term (current) use of antithrombotics/antiplatelets; Z79.82 Long term (current) use of aspirin; Z79.899 Other long term (current) drug therapy
CPT/HCPCS: 88305; 43239; J2003; J2704

== ENCOUNTER → 2025-02-21 | Outpatient (CLI) | payer MEDICARE ==
--- NOTE | 2025-02-21 11:20 | US ---
EXAMINATION TYPE: US liver DATE OF EXAM: 02/21/2025 COMPARISON: MR 09/02/24, US Renal 09/03/24 CLINICAL INDICATION: Male, 64 years old with history of K74.60 UNSPECIFIED CIRRHOSIS OF LIVER; Cirrho sis. Hx procedure for kidney stone. TECHNIQUE: Grayscale and color Doppler imaging of the right upper quadrant. FINDINGS: EXAM MEASUREMENTS: Liver Length: 18.0 cm Gallbladder Wall: 0.29 cm CBD: 0.55 cm, color Doppler imaging was utilized to isolate the common bile duct for measurement. Right Kidney: 11.9 x 6.2 x 5.8 cm SHEAR HELPER NOTES: Exam is limited due to gas Pancreas: Not well visualized. Liver: *Enlarged. Increased attenuation. Appears heterogeneous Gallbladder: Appears wnl Evidence for sonographic Hyatt's sign: No CBD: Portions seen appear wnl Right Kidney: 2 hyperechoic foci seen. One was seen at the lower pole: 0.6 x 0.5 x 0.5 mm. The secon d focus was seen at mid: 0.4 x 0.4 x 0.4 cm. Incidental finding: portal vein appears dilated at 16 mm. The pancreas is not well-visualized due to overlying bowel gas. Borderline enlarged liver with diffuse increased attenuation. Heterogenous echogenicity. No focal les ion identified. There is some surface nodularity identified. Gallbladder is unremarkable without evid ence of wall thickening, stones or surrounding fluid. Negative sonographic Hyatt sign. Common bile d uct appears within normal limits. Right kidney demonstrates no hydronephrosis or solid mass. There ar e 2 hyperechoic shadowing foci consistent with nonobstructing calculi. Portal vein is dilated. No asc ites identified within the right upper quadrant. IMPRESSION: 1. Hepatic cirrhosis without focal lesion identified. 2. Findings suggestive of portal venous hypertension with dilated portal vein. 3. Nonobstructing right renal calculi. [facility], , 02/21/2025 11:18 AM
[2025-02-21 15:33] LABS: ALT 34 U/L (10-49); AST 50 U/L (14-35); Albumin 3.8 g/dL (3.8-4.9); Albumin/Globulin Ratio 0.83 Ratio (1.60-3.17); Alkaline Phosphatase 158 U/L (41-126); Anion Gap 12.30 mmol/L (4.00-12.00); BUN/Creat Ratio 29.83 Ratio (12.00-20.00); Blood Urea Nitrogen 17.9 mg/dL (9.0-27.0); Calcium 8.8 mg/dL (8.7-10.3); Carbon Dioxide 21.7 mmol/L (21.6-31.8); Chloride 106 mmol/L (96-109); Globulin 4.6 g/dL (1.6-3.3); Glucose 113 mg/dL (70-110); Potassium 3.6 mmol/L (3.5-5.5); Sodium 140 mmol/L (135-145); Total Protein 8.4 g/dL (6.2-8.2)
[2025-02-21 16:21] LABS: HCT 41.1 % (39.6-50.0); HGB 14.1 g/dL (13.0-17.0); Immature Platelet Fraction 10.1 % (1.1-6.1); MCH 33.3 pg (27.0-32.0); MCHC 34.3 g/dL (32.0-37.0); MCV 97.2 FL (80.0-97.0); NRBC Per 100 WBC 0 X 10*3/uL (0.00-0.01); Platelet Count 74 X 10*3/uL (140-440); RBC 4.23 X 10*6/uL (4.40-5.60); RDW 13.3 % (11.5-14.5); WBC 4.32 X 10*3/uL (4.50-10.00)
== END | disposition home or self-care (01) ==
LOC: RADUSWWP 10:23
PROVIDERS: ATTEND Internal Medicine Gastroenterology
DX: N20.0 Calculus of kidney (principal); K74.60 Unspecified cirrhosis of liver; R77.8 Other specified abnormalities of plasma proteins
CPT/HCPCS: 76705; 80053; 81256; 82105; 85027